=== PATIENT | male | born 1965 | race Caucasian/White ===

== ENCOUNTER → 2025-03-03 06:10 | Outpatient (REF) | payer MEDICARE, SELFPAY ==
[2025-03-03 09:20] LABS: Hematocrit 37.6 % (40-54); Hemoglobin 12.1 g/dL (13.0-16.5); Mean Corp Hgb Conc 32.2 g/dL (32-36); Mean Corpuscular Volume 91.9 fL (80-94); Mean Platelet Vol. 10.4 fl (6.2-12.0); Platelet Count 462 K/mm3 (150-450); RBC Distribution Width CV 14.4 % (11.6-14.6); RBC Distribution Width SD 48.8 fl (35.1-43.9); Red Blood Count 4.09 M/mm3 (4.6-6.2); White Blood Count 10.8 K/mm3 (4.4-11.0)
[2025-03-03 09:47] LABS: Anion Gap 11 (5-15); BUN 30 mg/dL (4-19); BUN/Creat Ratio 15.0 RATIO (10-20); Calcium,Total 9.2 mg/dL (7.6-11.0); Carbon Dioxide 20.9 mmol/L (21.0-32.0); Chloride 109 mmol/L (98-108); Cholesterol 98 mg/dL (<=200); Glucose 118 mg/dL (70-99); Low Density Lipoprotein Calc. 43 mg/dL; Potassium 4.3 mmol/L (3.3-5.1); Triglycerides 94 mg/dL; Very Low Density Lipoprotein 19 mg/dL (5-40); Vitamin D,25 Hydroxy 21.6 ng/mL (30-100); cholesterol:hdl ratio screen 2.64
== END ==
LOC: OLS.SW 06:10
PROVIDERS: Referring Provider Family Medicine; Visit Provider Family Medicine
DX: Z79.899 Other long term (current) drug therapy (principal); E11.40 Type 2 diabetes mellitus with diabetic neuropathy, unspecified
CPT/HCPCS: 36415; 80048; 80061; 82306; 83036; 84443; 85027

== ENCOUNTER → 2025-03-10 05:00 | Outpatient (REF) | payer SELFPAY ==
--- OUTSIDE RECORDS SUMMARY | 2025-03-10 03:32 | XMS RPT_ITS | CCD ---
Author Organization [facility] Care Team Providers Care Personnel Clerks Supervisor Name Role Phone Agustín Garay Attending Unavailable Results Test Name Value Interpretation Reference Range Facil ity Basic Metabolic Profile (BMP )on 03-03-2025 BUN/CRE 15.0 RATIO Normal 10-20 [facility] Comment on above: Performed By: #### L 501.9985, L500.2500, L500.4100, L100.0500, L506.1001, L501.9520 #### [facility] [address] [place], [address] Calcium [Mass/Vol] 9.2 mg/dL Normal 7.6-11.0 [facility] Comment on above: Performed By: #### L 501.9985, L500.2500, L500.4100, L100.0500, L506.1001, L501.9520 #### [facility] [address] [place], [address] Chloride [Moles/Vol] 109 mmol/L High 98-108 [facility] Comment on above: Performed By: #### L 501.9985, L500.2500, L500.4100, L100.0500, L506.1001, L501.9520 #### [facility] [address] [place], [address] CO2 [Moles/Vol] 20.9 mmol/L Low 21.0-32.0 [facility] Comment on above: Performed By: #### L 501.9985, L500.2500, L500.4100, L100.0500, L506.1001, L501.9520 #### [facility] [address] [place], [address] Creatinine [Mass/Vol] 2.00 mg/dL High 0.70-1.20 [facility] Comment on above: Performed By: #### L 501.9985, L500.2500, L500.4100, L100.0500, L506.1001, L501.9520 #### [facility] [address] [place], [address] GAP 11 Normal 5-15 [facility] Comment on above: Performed By: #### L 501.9985, L500.2500, L500.4100, L100.0500, L506.1001, L501.9520 #### [facility] [address] [place], [address] GFR/1.73 sq M.predicted among non-blacks MDRD (S/P/Bld) [Vol rate/Area] 37 mL/min/{1.73_m2} Low >60 [facility] Comment on above: Result Comment: mL/m in/1.73m2 CKD-EPI Creatinine Equation (2020) Performed By: #### L 501.9985, L500.2500, L500.4100, L100.0500, L506.1001, L501.9520 #### [facility] [address] [place], [address] Glucose [Mass/Vol] 118 mg/dL High 70-99 [facility] Comment on above: Performed By: #### L 501.9985, L500.2500, L500.4100, L100.0500, L506.1001, L501.9520 #### [facility] [address] [place], [address] Potassium [Moles/Vol] 4.3 mmol/L Normal 3.3-5.1 [facility] Comment on above: Performed By: #### L 501.9985, L500.2500, L500.4100, L100.0500, L506.1001, L501.9520 #### [facility] [address] [place], [address] Sodium [Moles/Vol] 141 mmol/L Normal 133-145 [facility] Comment on above: Performed By: #### L 501.9985, L500.2500, L500.4100, L100.0500, L506.1001, L501.9520 #### [facility] [address] [place], [address] Urea nitrogen [Mass/Vol] 30 mg/dL High 4-19 [facility] Comment on above: Performed By: #### L 501.9985, L500.2500, L500.4100, L100.0500, L506.1001, L501.9520 #### [facility] [address] [place], [address] CBC-Complete Blood Cnt No ffon 03-03-2025 Erythrocyte distribution width (RBC) [Ratio] 14.4 % Normal 11.6-14.6 [facility] Comment on above: Performed By: #### L 501.9985, L500.2500, L500.4100, L100.0500, L506.1001, L501.9520 #### [facility] [address] [place], [address] Hematocrit (Bld) [Volume fraction] 37.6 % Low 40-54 [facility] Comment on above: Performed By: #### L 501.9985, L500.2500, L500.4100, L100.0500, L506.1001, L501.9520 #### [facility] [address] [place], [address] Hemoglobin (Bld) [Mass/Vol] 12.1 g/dL Low 13.0-16.5 [facility] Comment on above: Performed By: #### L 501.9985, L500.2500, L500.4100, L100.0500, L506.1001, L501.9520 #### [facility] [address] [place], [address] MCH (RBC) [Entitic mass] 29.6 pg Normal 27.0-32.0 [facility] Comment on above: Performed By: #### L 501.9985, L500.2500, L500.4100, L100.0500, L506.1001, L501.9520 #### [facility] [address] [place], [address] MCHC (RBC) [Mass/Vol] 32.2 g/dL Normal 32-36 [facility] Comment on above: Performed By: #### L 501.9985, L500.2500, L500.4100, L100.0500, L506.1001, L501.9520 #### [facility] [address] [place], [address] MCV (RBC) [Entitic vol] 91.9 fL Normal 80-94 [facility] Comment on above: Performed By: #### L 501.9985, L500.2500, L500.4100, L100.0500, L506.1001, L501.9520 #### [facility] [address] [place], [address] Platelet mean volume (Bld) [Entitic vol] 10.4 fL Normal 6.2-12.0 [facility] Comment on above: Performed By: #### L 501.9985, L500.2500, L500.4100, L100.0500, L506.1001, L501.9520 #### [facility] [address] [place], [address] Platelets (Bld) [#/Vol] 462 10*3/uL High 150-450 [facility] Comment on above: Performed By: #### L 501.9985, L500.2500, L500.4100, L100.0500, L506.1001, L501.9520 #### [facility] [address] [place], [address] RBC (Bld) [#/Vol] 4.09 10*6/uL Low 4.6-6.2 [facility] Comment on above: Performed By: #### L 501.9985, L500.2500, L500.4100, L100.0500, L506.1001, L501.9520 #### [facility] [address] [place], [address] RDW SD 48.8 fl High 35.1-43.9 [facility] Comment on above: Performed By: #### L 501.9985, L500.2500, L500.4100, L100.0500, L506.1001, L501.9520 #### [facility] [address] [place], [address] WBC (Bld) [#/Vol] 10.8 10*3/uL Normal 4.4-11.0 [facility] Comment on above: Performed By: #### L 501.9985, L500.2500, L500.4100, L100.0500, L506.1001, L501.9520 #### [facility] [address] [place], [address] Hemoglobin A1con 03-03-2025 HbA1c (Bld) [Mass fraction] 6.7 % High <=5.6 [facility] Comment on above: Result Comment: Norm al < 5.7 % Prediabetic 5.7 - 6.4 % Diabetic >or= 6.5 % Please note range changes. Performed By: #### L 501.9985, L500.2500, L500.4100, L100.0500, L506.1001, L501.9520 #### [facility] [address] [place], [address] Lipid Profileon 03-03-2025 CHOL:HDL 2.64 Normal [facility] Comment on above: Performed By: #### L 501.9985, L500.2500, L500.4100, L100.0500, L506.1001, L501.9520 #### [facility] [address] [place], [address] Cholesterol [Mass/Vol] 98 mg/dL Normal <=200 [facility] Comment on above: Result Comment: Chol esterol level, Desirable <200 mg/dL Borderline high cholesterol 200-239 mg/dL High cholesterol >=240 mg/dL Recommendations of the NCEP Adult Treatment Panel for the following risk-cutoff thresholds for the [place] population. Performed By: #### L 501.9985, L500.2500, L500.4100, L100.0500, L506.1001, L501.9520 #### [facility] [address] [place], [address] Cholesterol in HDL [Mass/Vol] 37 mg/dL Low [facility] Comment on above: Result Comment: Debbie onal Cholesterol Education Program (NCEP) guidelines: <40 mg/dL: Low HDL-cholesterol (major risk factor for CHD) >= 60 mg/dL: High HDL-cholesterol (negative risk factor for CHD) HDL-cholesterol is affected by a number of factors, e.g. smoking, exercise, hormones, sex and age. Performed By: #### L 501.9985, L500.2500, L500.4100, L100.0500, L506.1001, L501.9520 #### [facility] [address] [place], [address] Cholesterol in LDL [Mass/Vol] 43 mg/dL Normal [facility] Comment on above: Result Comment: Bord atlasb=864-565 mg/dL Higher Qxug=259 mg/dL or greater Orozco Equation 2020 for LDL-C Performed By: #### L 501.9985, L500.2500, L500.4100, L100.0500, L506.1001, L501.9520 #### [facility] [address] [place], [address] Cholesterol in VLDL [Mass/Vol] 19 mg/dL Normal 5-40 [facility] Comment on above: Performed By: #### L 501.9985, L500.2500, L500.4100, L100.0500, L506.1001, L501.9520 #### [facility] [address] [place], [address] Triglyceride [Mass/Vol] 94 mg/dL Normal [facility] Comment on above: Result Comment: The drugs N-Acetylcysteine and Metamizole may falsely depress this assay. Normal range: <150 mg/dL Borderline High: 150-199 mg/dL High: 200-499 mg/dL Very High: >500 mg/dL Performed By: #### L 501.9985, L500.2500, L500.4100, L100.0500, L506.1001, L501.9520 #### [facility] [address] [place], [address] Thyroid Stim Hormone (TSH)on 03-03-2025 TSH 1.170 uIU/mL Normal 0.300-4.200 [facility] Comment on above: Performed By: #### L 501.9985, L500.2500, L500.4100, L100.0500, L506.1001, L501.9520 #### [facility] [address], [address] Vitamin D,25 Hydroxyon 03-03 Vitamin D 25-OH 21.6 ng/mL Low 30-100 [facility] Comment on above: Result Comment: Ann-Marie min D Status Deficiency: <20 ng/mL (50nmol/L) Insufficiency: 20-30 ng/mL (50-75 nmol/L) Sufficiency: 30-100 ng/mL (75-250 nmol/L) Toxicity: >100 ng/mL (>250 nmol/L) Performed By: #### L 501.9985, L500.2500, L500.4100, L100.0500, L506.1001, L501.9520 #### [facility] [address] [place], [address] Encounters Encounter Date Encounter Type Care Provider Facility Start: 03-03-2025 ambulatory Agustín Ivory ity:[facility] Payers Date Payer Category Payer Self-pay Summary Purpose Family History No Family History Records Found Advance Directives No Advanced Directives Records Found Additional Source Comments (unrecognized sect ion and content) No Status Records Found INFORMATION SOURCE (unrecogn ized section and content) DATE CREATED AUTHOR 03/04/2025 [facility] FOR RECORDS PERTAINING TO PATIENTS WHO ARE OR HAVE BEEN ENROLLED IN A CHEMICAL DEPENDENCY/SUBSTANCEABUSE PROGRAM, SOME INFORMATION MAY BE OMITTED. This clinical summary was aggregated from multiple sources. Caution should be exercised in using it in the provision of clinical care. This summary normalizes information from multiple sources, and as a consequence, information in this document may materially change the coding, format and clinical context of patient data. In addition, data may be omitted in some cases. CLINICAL DECISIONS SHOULD BE BASED ON THE PRIMARY CLINICAL RECORDS. [facility]. provides no warranty or guarantee of the accuracy or completeness of information in this document.
== END ==
LOC: OLS.SW 05:00
PROVIDERS: Visit Provider Family Medicine
DX: E78.5 Hyperlipidemia, unspecified (principal)
CPT/HCPCS: 36415; 80048; 80061; 82306; 84443

== ENCOUNTER → 2025-03-12 05:40 | Outpatient (REF) | payer MEDICARE, MEDICAID, SELFPAY ==
[2025-03-12 10:19] LABS: Hematocrit 40.0 % (40-54); Hemoglobin 13.1 g/dL (13.0-16.5); Mean Corp Hgb Conc 32.8 g/dL (32-36); Mean Corpuscular Volume 92.2 fL (80-94); Mean Platelet Vol. 10.4 fl (6.2-12.0); Platelet Count 479 K/mm3 (150-450); RBC Distribution Width CV 13.9 % (11.6-14.6); RBC Distribution Width SD 47.2 fl (35.1-43.9); Red Blood Count 4.34 M/mm3 (4.6-6.2); White Blood Count 11.1 K/mm3 (4.4-11.0)
[2025-03-12 10:56] LABS: Anion Gap 12 (5-15); BUN 32 mg/dL (4-19); BUN/Creat Ratio 16.2 RATIO (10-20); Calcium,Total 9.3 mg/dL (7.6-11.0); Carbon Dioxide 21.1 mmol/L (21.0-32.0); Chloride 106 mmol/L (98-108); Cholesterol 112 mg/dL (<=200); Glucose 109 mg/dL (70-99); Low Density Lipoprotein Calc. 49 mg/dL; Potassium 4.4 mmol/L (3.3-5.1); Triglycerides 131 mg/dL; Very Low Density Lipoprotein 26 mg/dL (5-40); Vitamin D,25 Hydroxy 21.9 ng/mL (30-100); cholesterol:hdl ratio screen 2.81
== END ==
LOC: OLS.SW 05:40
PROVIDERS: Visit Provider Family Medicine
DX: Z00.00 Encounter for general adult medical examination without abnormal findings (principal)
CPT/HCPCS: 36415; 80048; 80061; 82306; 84443; 85027

== ENCOUNTER → 2025-03-24 05:00 | Outpatient (REF) | payer MEDICARE, MEDICAID, SELFPAY ==
--- OUTSIDE RECORDS SUMMARY | 2025-03-24 04:20 | XMS RPT_ITS | CCD ---
Author Organization [facility] Care Team Providers Care Sports Attorney Name Role Phone CRISTOFER OSCAR ULISES Unavailable Unavaila EVER Renteria Unavailable Unavailable LUIZ BUTTS Unavailable Unavailable Ciro Schultz MD Primary Care Provider Unavailable Primary Care Provider Unavailabl e Generic Provider , No Assigned Pcp Primary Car e Provider Unavailable GISEL LUZ Attending Unavailable CIRO SCHULTZ Primary Care Unavailable JEM MAC Admitting Unavailable GENERIC PROVIDER, NO ASSIGNED PCP Primary Care Unavailable Generic Provider , No Assigned Pcp Primary Car e Provider Unavailable BOBBY TRACEY Referring Unavailable GENERIC PROVIDER, NO ASSIGNED PCP Primary Care Unavailable Generic Provider , No Assigned Pcp Primary Car e Provider Unavailable Jose Larson DO Primary Care Provider JOSE LARSON DO, V Primary Care Unavailable NELIDA VICTOR DO Attending Unavailabl e JOSE LARSON DO, V Primary Care Physician CIRO SCHULTZ Primary Care Unavailable ROGELIO COMBS Admitting Unavailable JORDYN URRUTIA Attending Unavailable RAEANN SYKES Consulting Unavailable JOSE LARSON JR Primary Care Unavail able CHRISSY HAGER Attending Unavailable KEVAN MERCHANT Attending Unavailable JOSE LARSON JR Primary Care Unavail able JOSE LARSON DO, V Primary Care Unavailable AQUILINO CASEY DO Attending Unavailable JOSE LARSON DO, V Primary Care Unavailable NAFZIGER DPM, DR NUNO [place] Attending Unav ailable JOSE LARSON DO, V Primary Care Unavailable NAFZIGER DPM, DR NUNO [place] Attending Unav ailable JOSE LARSON DO V Primary Care Unavailable NAFZIGER DPM, DR NUNO [place] Attending Unav ailable NEO DO, JOSE V Primary Care Unavailable NAFZIGER DPM, DR NUNO [place] Attending Unav ailable NEO DO, JOSE V Primary Care Unavailable NAFZIGER DPM, DR NUNO [place] Attending Unav ailable NEO DO, JOSE V Primary Care Unavailable NAFZIGER DPM, DR NUNO [place] Attending Unav ailable NEO DO, JOSE V Primary Care Unavailable RIDER DO, DR CHRISTINA Hamm Attending Unavailable Neo DO, Josejonas Baca Primary Care Provider BOBBY TRACEY Attending Unavailable BOBBY TRACEY Referring Unavailable JOSE LARSON Primary Care Unavailabl CHRISSY Bone Attending Unava ilable JOSE LARSON Primary Care Unavailabl BOBBY Cooley Attending Unavailable ALECIA MORSE Referring Unavailable GENERIC PROVIDER, NO ASSIGNED PCP Primary Care Unavailable BOBBY TRACEY Attending Unavailable BOBBY TRACEY Referring Unavailable GENERIC PROVIDER, NO ASSIGNED PCP Primary Care Unavailable KONCESAR ARVIZU Attending Unavailable GENERIC PROVIDER, NO ASSIGNED PCP Primary Care Unavailable BRENT WAKEFIELD Attending Unavailable KONHEIM, CESAR Ron Referring Unavailable GENERIC PROVIDER, NO ASSIGNED PCP Primary Care Unavailable BOBBY TRACEY Attending Unavailable BOBBY TRACEY Referring Unavailable GENERIC PROVIDER, NO ASSIGNED PCP Primary Care Unavailable BRENT WAKEFIELD Attending Unavailable KONHEIM, CESAR L Referring Unavailable NEOJOSE Primary Care Unavailabl e BRENT WAKEFIELD Attending Unavailable KONHEIM, CESAR L Referring Unavailable NEOJOSE Primary Care Unavailabl BRENT Borrego Attending Unavailable KONHEIM, CESAR L Referring Unavailable NEOJOSE Primary Care Unavailabl BRENT Borrego Attending Unavailable NEOJOSE Primary Care Unavailabl e Agustín Garay Attending Unavailable Allergies Allergy Classification Reported Allergen(s) Allergy Type Date of Onset Reaction(s) Facility (1 source) ALLERGIES NOT ON FILE; Translations: [ALLERGIES NOT ON FILE] Propensity to adverse reactions (disorder) [facility] 3 Repository Medications Current Medications Medication Drug Class(es) Dates Sig (Normalized) Sig (Original) 0.25 MG, 0.5 MG Dose 3 ML semaglutide 0.68 MG/ML Pen Injector [Ozempic] (7 sources) Start: 08-26-2024 Ozempic 2 mg/3 mL (0.25 mg or 0.5 mg dose) subcutaneous solution 0 Refill(s) Start Date: 08/26/24 Status: Ordered Medication Dispense Status: Completed Total Allowed Fills: 1 Fills Dispensed: 0 acetaminophen 325 mg oral tablet (20 sources) Start: 08-26-2024 acetaminophen 325 mg oral tablet 0 Refill(s) Start Date: 08/26/24 Status: Ordered Medication Dispense Status: Completed Total Allowed Fills: 1 Fills Dispensed: 0 take 2 tablets by mo [facility] every four hours as needed acetaminophen (Tylenol) 325 mg tablet Ta ke 2 tablets (650 mg) by mouth every 4 hours if needed. Active Comment on above: Take 650 mg by mouth every 4 hours as needed for fever (specify). atorvastatin 20 mg oral tablet (20 sources) HMG-CoA Reductase Inhibitor Start: 08-26-2024 atorvastatin 20 mg oral tablet 0 Refill(s) Start Date: 08/26/24 Status: Ordered Medication Dispense Status: Completed Total Allowed Fills: 1 Fills Dispensed: 0 Comment on above: Take 20 mg by mouth once daily. bisacodyl 10 mg rectal suppository (19 sources) Stimulant Laxative Start: 08-26-2024 bisacodyl 10 mg rectal suppository 0 Refill(s) Start Date: 08/26/24 Status: Ordered Medication Dispense Status: Completed Total Allowed Fills: 1 Fills Dispensed: 0 cholecalciferol 0.01 mg oral tablet (16 sources) Vitamin D Start: 07-05-2023 Vitamin D3 10 mcg (400 unit) tablet 07/05/2023 Active 168 hr cloNIDine 0.0125 mg/hr transdermal system (20 sources) Central alpha-2 Adrenergic Agonist Start: 08-26-2024 cloNIDine 0.3 mg/24 hr transdermal film, extended release 0 Refill(s) Start Date: 08/26/24 Status: Ordered Medication Dispense Status: Completed Total Allowed Fills: 1 Fills Dispensed: 0 take 1 tablet by evelio twice daily as needed for hypertension cloNIDine (Catapres) 0.1 mg tablet Take 1 tablet (0.1 mg) by mouth 2 times a day as needed for high blood pressure (HTN SBP GREATER THAN 150). Active cloNIDine (Catap res-TTS) 0.3 mg/[address] 1 patch on the skin 1 (one) time per week. Apply one patach on the skin and replace every 7 days, as directed, EVERY SUNDAY Active dapagliflozin 10 mg oral tablet (19 sources) Sodium-Glucose Cotransporter 2 Inhibitor Start: 03-27-2024 End: 03-27-2025 dapagliflozin propanediol (Farxiga) 10 mg Indications: Stage 3b chronic kidney disease (Multi) , Type 2 diabetes mellitus with stage 3b chronic kidney disease, with long-term current use of insulin (Multi) Take 1 tablet (10 mg) by mouth once daily. 90 tablet 3 03/27/2024 03/27/2025 Active dextromethorphan hydrobromide 2 mg/ml / guaiFENesin 20 mg/ml oral solution (1 source) Uncompetitive C-ujxvmv-Z-aspartat e Receptor Antagonist, Sigma-1 Agonist take 5 mL by mouth every four hours as needed dextromethorphan-g uaifenesin 10-100 mg/5 mL oral liquid Take 5 mL by mouth every 4 hours if needed. Active docusate sodium 100 mg oral capsule (19 sources) Start: 08-26-2024 docusate sodium 100 mg oral capsule 0 Refill(s) Start Date: 08/26/24 Status: Ordered Medication Dispense Status: Completed Total Allowed Fills: 1 Fills Dispensed: 0 famotidine 40 mg oral tablet (3 sources) Histamine-2 Receptor Antagonist Start: 02-15-2025 End: 03-01-2025 Pepcid 40 mg oral tablet Dose : 40 mg = 1 tab(s), Oral, BID, # 28 tab(s), 0 Refill(s) Start Date: 02/15/25 Stop Date: 03/01/25 Status: Ordered Medication Dispense Status: Completed Quantity: 28.0 Unit: tab(s) Total Allowed Fills: 1 Fills Dispensed: 0 finerenone (Kerendia) 10 mg tablet tablet (7 sources) Start: 07-31-2024 End: 07-31-2025 take 1 tablet by mouth once daily finerenone (Kerendia) 10 mg tablet tablet Indications: Stage 3b chronic kidney disease (Multi) Take 1 tablet (10 mg) by mouth once daily. 90 tablet 3 07/31/2024 07/31/2025 Active fluocinonide 0.0005 mg/mg topical ointment (6 sources) Corticosteroid Start: 03-06-2023 End: 03-27-2024 fluocinonide (Lidex) 0.05 % ointment Indications: Dermatitis Use on the skin daily, thin layer 60 g 3 03/06/2023 03/27/2024 Discontinued (Therapy completed) furosemide 40 mg oral tablet (20 sources) Loop Diuretic Start: 03-27-2024 End: 03-27-2025 furosemide 40 mg oral tablet 0 Refill(s) Start Date: 08/26/24 Status: Ordered Medication Dispense Status: Completed Total Allowed Fills: 1 Fills Dispensed: 0 take 2 tablets by mouth once kimmie ly furosemide (LASIX) 20 mg tablet Take 20 mg by mouth once daily. Take 2 pills qd 0 Active Comment on above: Take 20 mg by mouth once daily. Take 2 pills qd hydrALAZINE hydrochloride 10 mg oral tablet (20 sources) Arteriolar Vasodilator Start: 08-26-2024 hydrALAZINE 10 mg oral tablet 0 Refill(s) Start Date: 08/26/24 Status: Ordered Medication Dispense Status: Completed Total Allowed Fills: 1 Fills Dispensed: 0 Start: 03-14-2023 take 1 tablet by evelio th three times daily hydrALAZINE (Apresoline) 50 mg tablet Take 1 tablet (50 mg) by mouth 3 times a day. 03/14/2023 Active Comment on above: Take 1 tablet by evelio three times a day. hydrocortisone 25 mg/ml topical cream (20 sources) Corticosteroid Start: 08-26-2024 hydrocortisone 2.5% topical cream 0 Refill(s) Start Date: 08/26/24 Status: Ordered Medication Dispense Status: Completed Total Allowed Fills: 1 Fills Dispensed: 0 Start: 08-02-2023 hydrocortisone 2.5 % cream 08/02/2023 Active 3 ml insulin glargine 100 unt/ml pen injector (19 sources) Insulin Analog Start: 08-26-2024 Lantus Solosta r Pen 100 units/mL 3 mL Pen 0 Refill(s) Start Date: 08/26/24 Status: Ordered Medication Dispense Status: Completed Total Allowed Fills: 1 Fills Dispensed: 0 inject 18 [IU] by grayson bcutaneous injection once daily in the morning insulin glargine (Lantus U-100 Insulin) 100 unit/mL injection Inject 18 Units under the skin once daily in the morning. Take as directed per insulin instructions. Active 3 ml insulin lispro 100 unt/ml pen injector (20 sources) Insulin Analog Start: 08-07-2023 HumaLOG KwikPe n Insulin 100 unit/mL injection 08/07/2023 Active Start: 06-05-2022 inject 8 [IU] by sub cutaneous injection three times daily before mealtime insulin lispro (HUMALOG U-100 INSULIN) 100 unit/mL injection Inject 8 units subcutaneously 3 times daily before meals. 10 mL 1 06/05/2022 Active Comment on above: Inject 8 units subcu taneously 3 times daily before meals. ketoconazole 20 mg/ml medicated shampoo (16 sources) Azole Antifungal Start: 08-26-2024 ketoconazole 2% topical shampoo 0 Refill(s) Start Date: 08/26/24 Status: Ordered Medication Dispense Status: Completed Total Allowed Fills: 1 Fills Dispensed: 0 Start: 05-21-2024 ketoconazole ( NIZOral) 2 % shampoo Indications: Seborrheic dermatitis Wash affected areas of scalp 2-3 times weekly as directed 120 mL 11 05/21/2024 Active lisinopril 5 mg oral tablet (9 sources) Angiotensin Converting Enzyme Inhibitor Start: 07-05-2023 End: 03-27-2024 lisinopril 5 mg tablet 07/05/2023 03/27/2024 Discontinued (Therapy completed) Start: 11-21-2017 lisinopril (ZE STRIL) 10 mg tablet Take 5 mg by mouth. 0 11/21/2017 Active Start: 11-21-2017 lisinopril (ZE STRIL) 10 mg tablet Take 10 mg by mouth. 0 11/21/2017 Active Comment on above: Take 10 mg by mouth. Take 5 mg by mouth. loperamide hydrochloride 2 mg oral tablet (16 sources) Opioid Agonist Start: 10-06-2022 Anti-DiarrheaL, loperamide, 2 mg tablet 10/06/2022 Active magnesium hydroxide 240 mg/ml oral suspension (20 sources) magnesium hydrox sid (Milk of Magnesia) 2,400 mg/10 mL suspension suspension Take 30 mL by mouth. Active take 30 mL by mouth every twenty-four hours as needed for constipation magnesium hydroxide 2,400 mg/10 mL susp Take 30 mL by mouth. Q24h prn for constipation 0 Active Comment on above: Take 30 mL by mouth. Q24h prn for constipation melatonin 10 mg oral capsule (1 source) Start: melatonin 10 mg capsule 02/16/2025 Active 24 hr metoprolol succinate 200 mg extended release oral tablet (15 sources) beta-Adrenergic Janes End: take 1 tablet by mouth once daily metoprolol succinate XL (Toprol-XL) 200 mg 24 hr tablet Take 1 tablet (200 mg) by mouth once daily. Do not crush or chew. HOLD FOR HEART RATE LESS THAN 60 07/31/2024 Discontinued (Therapy completed) End: 03-27-2024 take 1 tablet by mouth twice daily metoprolol tartrate (Lopressor) 50 mg tablet Take 1 tablet by mouth twice a day. 03/27/2024 Discontinued (Therapy completed) Comment on above: Take 50 mg by mouth twice daily. 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 Apply to wound on left wrist 30 g 1 08/19/2024 09/02/2024 Active OLANZapine 7.5 mg oral tablet (1 source) Atypical Antipsychotic Start: 02-06-2025 OLANZapine (ZyPREXA) 7.5 mg tablet 02/06/2025 Active ondansetron 4 mg oral tablet (8 sources) Serotonin-3 Receptor Antagonist Start: 08-26-2024 ondansetron (Zofran) 4 mg tablet 0 Refill(s) 08/26/2024 Active polyethylene glycol 3350 64523 mg powder for oral solution (7 sources) Osmotic Laxative Start: 08-26-2024 polyethylene glycol 3350 oral powder for reconstitution 0 Refill(s) Start Date: 08/26/24 Status: Ordered Medication Dispense Status: Completed Total Allowed Fills: 1 Fills Dispensed: 0 semaglutide 0.25 mg or 0.5 mg (2 mg/3 mL) pen injector (7 sources) inject 0.5 mg by subcutaneous injection every week semaglutide 0.25 mg or 0.5 mg (2 mg/3 mL) pen injector Inject 0.5 mg under the skin once a week. Active sodium chloride 0.111 meq/ml nasal spray (1 source) sodium chloride ([employer]) 0.65 % nasal spray Administer 1 spray into affected nostril(s) every 6 hours if needed. Active sodium zirconium cyclosilicate 51750 mg powder for oral suspension (1 source) End: 03-27-2024 sodium zirconium cyclosilicate (Lokelma) 10 gram packet Take 10 g by mouth once daily. 03/27/2024 Discontinued (Med List Cleanup) traMADol hydrochloride 50 mg oral tablet (8 sources) Opioid Agonist Start: 08-26-2024 traMADol (Ultram) 50 mg tablet 0 Refill(s) 08/26/2024 Active Vitamin D3 10 mcg (400 intl units) oral tablet (7 sources) Start: 08-26-2024 Vitamin D3 10 mcg (400 intl units) oral tablet 0 Refill(s) Start Date: 08/26/24 Status: Ordered Medication Dispense Status: Completed Total Allowed Fills: 1 Fills Dispensed: 0 Completed/Discontinued Medications Medication Drug Class(es) Dates Sig (Normalized) Sig (Original) amLODIPine 10 mg oral tablet (4 sources) Dihydropyridine Calcium Channel Janes take 1 tablet by mouth once daily amLODIPine (NORVASC) 10 mg tablet Take 10 mg by mouth once daily. 0 Active Comment on above: Take 10 mg by mouth once daily. cetirizine hydrochloride 10 mg oral tablet (4 sources) Histamine-1 Receptor Antagonist take 1 tablet by mouth once daily cetirizine (ZYRTEC) 10 mg tablet Take 10 mg by mouth once daily. 0 Active Comment on above: Take 10 mg by mouth once daily. ibuprofen 600 mg oral tablet (4 sources) Nonsteroidal Anti-inflammatory Drug Start: 12-23-2017 take 1 tablet by mouth every six hours as needed ibuprofen (MOTRIN) 600 mg tablet Take 1 tablet by mouth every 6 hours as needed. 0 12/23/2017 Active Comment on above: Take 1 tablet by evelio every 6 hours as needed. insulin glargine,hum.rec.an log (LANTUS SOLOSTAR U-100 INSULIN SUBCUTANEOUS) (4 sources) inject 5 [IU] by subcutaneous injection once daily at bedtime insulin glargine,hum.rec.an log (LANTUS SOLOSTAR U-100 INSULIN SUBCUTANEOUS) Inject 5 Units subcutaneously daily at bedtime. 0 Active Comment on above: Inject 5 Units subcu taneously daily at bedtime. insulin glargine-yfgn (SEMGLEE) 100 unit/mL (3 mL) insulin pen (4 sources) Start: 06-06-2022 insulin glargine-yfgn (SEMGLEE) 100 unit/mL (3 mL) insulin pen insulin isophane, human 100 unt/ml injectable suspension (4 sources) Start: 01-21-2018 insulin NPH injection Inject 15 Units subcutaneously. 0 01/21/2018 Active Comment on above: Inject 15 Units subc utaneously. insulin, regular, human 100 unt/ml injectable solution (4 sources) Insulin Start: 01-21-2018 insulin regular human 100 unit/mL injection Take 15 units sc bid 0 01/21/2018 Active Comment on above: Take 15 units sc bid regadenoson 0.4 mg injection (LEXISCAN) (1 source) Start: 06-19-2023 End: 06-19-2023 regadenoson 0.4 mg injection (LEXISCAN) 1 ml triamcinolone acetonide 40 mg/ml injection (3 sources) Corticosteroid Start: 10-03-2023 End: 10-02-2023 triamcinolone acetonide (Kenalog-40) injection 20 mg Start: 10-03-2023 End: 10-02-2023 20 mg, intralesional, Once, On Sun10/03/23 at 1330, For 1 dose, 0.5mL of 40mg/mL was diluted with 0.5mL of normal saline, resulting in 1mL volume of 20mg/mL triamcinolone. Start: 10-02-2023 End: 10-03-2023 triamcinolone acetonide (Estrada alog) injection 20 mg divalproex sodium 125 mg delayed release oral capsule (4 sources) Mood Stabilizer, Anti-epileptic Agent take 1 capsule by mouth twice daily divalproex sprinkle (DEPAKOTE SPRINKLES) 125 mg capsule Take 125 mg by mouth twice daily. 0 Active Comment on above: Take 125 mg by mouth twice daily. Problems Active Problems Problem Classification Problem Date Documented Date Episodic/Chronic Abdominal hernia (8 sources) Inguinal hernia; Translations: [Unilateral inguinal hernia, without obstruction or gangrene, not specified as recurrent] Onset: 2024 08-26-2024 Episodic Acute cerebrovascular disease (1 source) Cerebrovascular accident; Translations: [Cerebral infarction, unspecified] 03-14-2023 Chronic Alcohol-related disorders (1 source) Alcohol use, unspecified with intoxication delirium; Translations: [Alcohol use, unspecified with intoxication delirium (HCC)] Onset: 01-07-2018 Chronic Allergic reactions (3 sources) Nummular eczema; Translations: [Nummular dermatitis] 03-06-2023 Episodic Cancer; other and unspecified primary (2 sources) Squamous cell carcinoma in situ; Translations: [Carcinoma in situ, unspecified] 08-31-2023 Chronic Chronic kidney disease (20 sources) Anemia; Translations: [Chronic kidney disease, unspecified] Onset: 12-08-2023 03-14-2023 Chronic Chronic kidney disease (8 sources) Chronic kidney disease; Translations: [Chronic kidney disease, stage 3 unspecified (Multi)] Onset: 03-31-2023 Deficiency and other anemia (2 sources) Anemia in chronic kidney disease; Translations: [Anemia in chronic kidney disease] Onset: 09-21-2023 Chronic Diabetes mellitus with complications (5 sources) Type 2 diabetes mellitus with unspecified complications; Translations: [Insulin treated type 2 diabetes mellitus] Onset: 01-07-2018 03-27-2024 Chronic Diabetes mellitus without complication (20 sources) Type 2 diabetes mellitus; Translations: [Type 2 diabetes mellitus without complications] Onset: 06-04-2022 06-04-2022 Chronic Diabetes mellitus without complication (1 source) Hyperglycemia, unspecified; Translations: [Hyperglycemia, unspecified] Onset: 01-07-2018 Episodic Disorders of lipid metabolism (20 sources) Dyslipidemia; Translations: [Hyperlipidemia, unspecified] Onset: 03-31-2023 03-14-2023 Chronic Essential hypertension (20 sources) Essential hypertension; Translations: [Essential (primary) hypertension] Onset: 03-31-2023 03-14-2023 Chronic Hypertension with complications and secondary hypertension (1 source) Hypertensive urgency; Translations: [Hypertensive urgency] Onset: 10-03-2023 Chronic Inflammatory conditions of male genital organs (1 source) Epididymitis; Translations: [Epididymitis] Onset: 01-02-2025 Episodic Mood disorders (16 sources) Mood disorder; Translations: [Unspecified mood [affective] disorder] Onset: 03-31-2023 03-31-2023 Chronic Mood disorders (1 source) Major depressive disorder, single episode, unspecified; Translations: [Major depressive disorder, single episode, unspecified] Onset: 10-04-2017 Nutritional deficiencies (16 sources) Vitamin D deficiency; Translations: [Vitamin D deficiency, unspecified] Onset: 04-06-2023 04-06-2023 Chronic Other aftercare (1 source) Wound finding; Translations: [Encounter for other specified aftercare] 09-30-2024 Episodic Other and unspecified benign neoplasm (1 source) Melanocytic nevus; Translations: [Melanocytic nevi, unspecified] 05-21-2024 Episodic Other and unspecified benign neoplasm (1 source) Hemangioma of skin; Translations: [Hemangioma of skin and subcutaneous tissue] 05-21-2024 Episodic Other bone disease and musculoskeletal deformities (7 sources) Avascular necrosis of bone 08-26-2024 Chronic Other inflammatory condition of skin (1 source) Seborrheic dermatitis; Translations: [Seborrheic dermatitis, unspecified] 05-21-2024 Episodic Other injuries and conditions due to external causes (2 sources) Foreign body in esophagus; Translations: [Food in esophagus causing other injury, initial encounter] Onset: 02-15-2025 Episodic Other injuries and conditions due to external causes (1 source) Food in esophagus causing other injury, initial encounter; Translations: [Food in esophagus causing other injury, initial encounter] Onset: 02-15-2025 Episodic Other injuries and conditions due to external causes (1 source) Unspecified foreign body in esophagus causing other injury, initial encounter; Translations: [Unspecified foreign body in esophagus causing other injury, initial encounter] Onset: 02-15-2025 Episodic Other male genital disorders (1 source) Scrotal pain; Translations: [Scrotal pain] Onset: 01-02-2025 Episodic Other nervous system disorders (1 source) Metabolic encephalopathy; Translations: [Metabolic encephalopathy] Onset: 01-07-2018 Chronic Other non-traumatic joint disorders (1 source) Pain of right wrist; Translations: [Pain in right wrist] Episodic Other nutritional; endocrine; and metabolic disorders (4 sources) Obese class II; Translations: [Obesity, unspecified] Onset: 06-03-2022 06-03-2022 Chronic Other screening for suspected conditions (not mental disorders or infectious disease) (9 sources) Patient encounter status; Translations: [Encounter for screening for cardiovascular disorders] 05-30-2023 Episodic Other skin disorders (1 source) Sebaceous cyst of skin; Translations: [Sebaceous cyst] 10-02-2023 Episodic Other skin disorders (1 source) Actinic keratosis; Translations: [Actinic keratosis] 05-21-2024 Episodic Other skin disorders (2 sources) Seborrheic keratosis; Translations: [Other seborrheic keratosis] 05-21-2024 Episodic Other skin disorders (2 sources) Skin problem; Translations: [Disorder of the skin and subcutaneous tissue, unspecified] 02-25-2025 Episodic Other skin disorders (2 sources) Epidermoid cyst; Translations: [Epidermal cyst] 02-25-2025 Episodic Other skin disorders (1 source) Inflamed seborrheic keratosis; Translations: [Inflamed seborrheic keratosis] 02-25-2025 Episodic Other skin disorders (1 source) Skin tag; Translations: [Other hypertrophic disorders of the skin] 02-25-2025 Episodic Other skin disorders (2 sources) Epidermal cyst; Translations: [Epidermal cyst] Onset: 02-25-2025 Episodic Residual codes; unclassified (1 source) Dependent edema; Translations: [Edema, unspecified] 03-14-2023 Episodic Spondylosis; intervertebral disc disorders; other back problems (7 sources) Degeneration of lumbar intervertebral disc 08-26-2024 Chronic Spondylosis; intervertebral disc disorders; other back problems (7 sources) Spinal stenosis of lumbar region 08-26-2024 Episodic Substance-related disorders (1 source) Other psychoactive substance abuse, uncomplicated; Translations: [Other psychoactive substance abuse, uncomplicated] Onset: 10-04-2017 Chronic Unclassified (1 source) Altered Mental Status / [id number]() Onset: 01-07-2018 Unclassified (1 source) Overdose, Intentional / 373() Onset: 10-04-2017 Unclassified (1 source) Unknown / UNK(Unknown) Onset: 10-04-2017 Past or Other Problems Problem Classification Problem Date Documented Da te Episodic/Chronic Alcohol-related disorders (1 source) Alcohol use, unspecified with intoxication, unspecified; Translations: [Alcohol use, unspecified with intoxication, unspecified (HCC)] Onset: 10-04-2017 Episodic Deficiency and other anemia (4 sources) Anemia; Translations: [Anemia, unspecified] Onset: 06-04-2022 06-04-2022 Episodic Fluid and electrolyte disorders (12 sources) Hyperkalemia; Translations: [Hyperkalemia] Onset: 02-09-2024 02-09-2024 Episodic Malaise and fatigue (16 sources) Asthenia; Translations: [Weakness] Onset: 03-31-2023 03-31-2023 Episodic Neoplasms of unspecified nature or uncertain behavior (5 sources) Neoplasm of uncertain behavior of skin; Translations: [Neoplasm of uncertain behavior of skin] Onset: 05-21-2024 08-31-2023 Episodic Other aftercare (2 sources) Encounter for other specified aftercare; Translations: [Encounter for other specified aftercare] Onset: 09-30-2024 Episodic Other aftercare (2 sources) USP (current) use of insulin; Translations: [USP (current) use of insulin (Multi)] Onset: 03-31-2023 Episodic Other bone disease and musculoskeletal deformities (1 source) Disorder of bone, unspecified; Translations: [Lesion of bone of thoracic spine] Onset: 2024 Episodic Other diseases of kidney and ureters (4 sources) Kidney disease; Translations: [Disorder of kidney and ureter, unspecified] Onset: 06-04-2022 06-04-2022 Episodic Other non-epithelial cancer of skin (20 sources) Malignant neoplasm of skin of upper limb; Translations: [Unspecified malignant neoplasm of skin of unspecified upper limb, including shoulder] Onset: 04-06-2023 04-06-2023 Episodic Other skin disorders (16 sources) Skin lesion; Translations: [Disorder of the skin and subcutaneous tissue, unspecified] Onset: 05-12-2023 Resolved: 09-10-2023 09-10-2023 Episodic Other skin disorders (1 source) Scar conditions and fibrosis of skin; Translations: [Scar conditions and fibrosis of skin] 10-24-2023 Episodic Skin and subcutaneous tissue infections (18 sources) Cellulitis; Translations: [Cellulitis, unspecified] Onset: 06-01-2022 06-01-2022 Episodic Results Test Name Value Interpretation Reference Range Facility Basic Metabolic Profile (BMP )on 03-03-2025 BUN/CRE 15.0 RATIO Normal 10-20 [facility] Comment on above: Performed By: #### L 501.9985, L500.2500, L500.4100, L100.0500, L506.1001, L501.9520 #### [facility] [address] [place], [address] Calcium [Mass/Vol] 9.2 mg/dL Normal 7.6-11.0 [facility] Comment on above: Performed By: #### L 501.9985, L500.2500, L500.4100, L100.0500, L506.1001, L501.9520 #### [facility] [address] [place], [address] Chloride [Moles/Vol] 109 mmol/L High 98-108 [facility] Comment on above: Performed By: #### L 501.9985, L500.2500, L500.4100, L100.0500, L506.1001, L501.9520 #### [facility] [address] [place], [address] CO2 [Moles/Vol] 20.9 mmol/L Low 21.0-32.0 [facility] Comment on above: Performed By: #### L 501.9985, L500.2500, L500.4100, L100.0500, L506.1001, L501.9520 #### [facility] [address] [place], [address] Creatinine [Mass/Vol] 2.00 mg/dL High 0.70-1.20 [facility] Comment on above: Performed By: #### L 501.9985, L500.2500, L500.4100, L100.0500, L506.1001, L501.9520 #### [facility] [address] [place], [address] GAP 11 Normal 5-15 [facility] Comment on above: Performed By: #### L 501.9985, L500.2500, L500.4100, L100.0500, L506.1001, L501.9520 #### [facility] [address] [place], [address] GFR/1.73 sq M.predicted among non-blacks MDRD (S/P/Bld) [Vol rate/Area] 37 mL/min/{1.73_m2} Low >60 [facility] Comment on above: Result Comment: mL/m in/1.73m2 CKD-EPI Creatinine Equation (2020) Performed By: #### L 501.9985, L500.2500, L500.4100, L100.0500, L506.1001, L501.9520 #### [facility] [address] [place], [address] Glucose [Mass/Vol] 118 mg/dL High 70-99 [facility] Comment on above: Performed By: #### L 501.9985, L500.2500, L500.4100, L100.0500, L506.1001, L501.9520 #### [facility] [address] [place], [address] Potassium [Moles/Vol] 4.3 mmol/L Normal 3.3-5.1 [facility] Comment on above: Performed By: #### L 501.9985, L500.2500, L500.4100, L100.0500, L506.1001, L501.9520 #### [facility] [address] [place], [address] Sodium [Moles/Vol] 141 mmol/L Normal 133-145 [facility] Comment on above: Performed By: #### L 501.9985, L500.2500, L500.4100, L100.0500, L506.1001, L501.9520 #### [facility] [address] [place], [address] Urea nitrogen [Mass/Vol] 30 mg/dL High 4-19 [facility] Comment on above: Performed By: #### L 501.9985, L500.2500, L500.4100, L100.0500, L506.1001, L501.9520 #### [facility] [address] [place], [address] CBC-Complete Blood Cnt No Di ffon 03-03-2025 Erythrocyte distribution width (RBC) [Ratio] 14.4 % Normal 11.6-14.6 [facility] Comment on above: Performed By: #### L 501.9985, L500.2500, L500.4100, L100.0500, L506.1001, L501.9520 #### [facility] [address] [place], [address] Hematocrit (Bld) [Volume fraction] 37.6 % Low 40-54 [facility] Comment on above: Performed By: #### L 501.9985, L500.2500, L500.4100, L100.0500, L506.1001, L501.9520 #### [facility] [address] [place], [address] Hemoglobin (Bld) [Mass/Vol] 12.1 g/dL Low 13.0-16.5 [facility] Comment on above: Performed By: #### L 501.9985, L500.2500, L500.4100, L100.0500, L506.1001, L501.9520 #### [facility] [address] [place], [address] MCH (RBC) [Entitic mass] 29.6 pg Normal 27.0-32.0 [facility] Comment on above: Performed By: #### L 501.9985, L500.2500, L500.4100, L100.0500, L506.1001, L501.9520 #### [facility] [address] [place], [address] MCHC (RBC) [Mass/Vol] 32.2 g/dL Normal 32-36 [facility] Comment on above: Performed By: #### L 501.9985, L500.2500, L500.4100, L100.0500, L506.1001, L501.9520 #### [facility] [address] [place], [address] MCV (RBC) [Entitic vol] 91.9 fL Normal 80-94 [facility] Comment on above: Performed By: #### L 501.9985, L500.2500, L500.4100, L100.0500, L506.1001, L501.9520 #### [facility] [address] [place], [address] Platelet mean volume (Bld) [Entitic vol] 10.4 fL Normal 6.2-12.0 [facility] Comment on above: Performed By: #### L 501.9985, L500.2500, L500.4100, L100.0500, L506.1001, L501.9520 #### [facility] [address] [place], [address] Platelets (Bld) [#/Vol] 462 10*3/uL High 150-450 [facility] Comment on above: Performed By: #### L 501.9985, L500.2500, L500.4100, L100.0500, L506.1001, L501.9520 #### [facility] [address] [place], [address] RBC (Bld) [#/Vol] 4.09 10*6/uL Low 4.6-6.2 [facility] Comment on above: Performed By: #### L 501.9985, L500.2500, L500.4100, L100.0500, L506.1001, L501.9520 #### [facility] [address] [place], [address] RDW SD 48.8 fl High 35.1-43.9 [facility] Comment on above: Performed By: #### L 501.9985, L500.2500, L500.4100, L100.0500, L506.1001, L501.9520 #### [facility] [address] [place], [address] WBC (Bld) [#/Vol] 10.8 10*3/uL Normal 4.4-11.0 [facility] Comment on above: Performed By: #### L 501.9985, L500.2500, L500.4100, L100.0500, L506.1001, L501.9520 #### [facility] [address] [place], [address] Hemoglobin A1con 03-03-2025 HbA1c (Bld) [Mass fraction] 6.7 % High <=5.6 [facility] Comment on above: Result Comment: Norm al < 5.7 % Prediabetic 5.7 - 6.4 % Diabetic >or= 6.5 % Please note range changes. Performed By: #### L 501.9985, L500.2500, L500.4100, L100.0500, L506.1001, L501.9520 #### [facility] [address] [place], [address] Lipid Profileon 03-03-2025 CHOL:HDL 2.64 Normal [facility] Comment on above: Performed By: #### L 501.9985, L500.2500, L500.4100, L100.0500, L506.1001, L501.9520 #### [facility] [address] [place], [address] Cholesterol [Mass/Vol] 98 mg/dL Normal <=200 [facility] Comment on above: Result Comment: Chol esterol level, Desirable <200 mg/dL Borderline high cholesterol 200-239 mg/dL High cholesterol >=240 mg/dL Recommendations of the NCEP Adult Treatment Panel for the following risk-cutoff thresholds for the [place] population. Performed By: #### L 501.9985, L500.2500, L500.4100, L100.0500, L506.1001, L501.9520 #### [facility] [address], [address] Cholesterol in HDL [Mass/Vol] 37 mg/dL Low [facility] Comment on above: Result Comment: Debbie onal Cholesterol Education Program (NCEP) guidelines: <40 mg/dL: Low HDL-cholesterol (major risk factor for CHD) >= 60 mg/dL: High HDL-cholesterol (negative risk factor for CHD) HDL-cholesterol is affected by a number of factors, e.g. smoking, exercise, hormones, sex and age. Performed By: #### L 501.9985, L500.2500, L500.4100, L100.0500, L506.1001, L501.9520 #### [facility] [address] [place], [address] Cholesterol in LDL [Mass/Vol] 43 mg/dL Normal [facility] Comment on above: Result Comment: Bord ofhrci=123-922 mg/dL Higher Wnso=499 mg/dL or greater Orozco Equation 2020 for LDL-C Performed By: #### L 501.9985, L500.2500, L500.4100, L100.0500, L506.1001, L501.9520 #### [facility] [address] [place], [address] Cholesterol in VLDL [Mass/Vol] 19 mg/dL Normal 5-40 [facility] Comment on above: Performed By: #### L 501.9985, L500.2500, L500.4100, L100.0500, L506.1001, L501.9520 #### [facility] [address] [place], [address] Triglyceride [Mass/Vol] 94 mg/dL Normal [facility] Comment on above: Result Comment: The drugs N-Acetylcysteine and Metamizole may falsely depress this assay. Normal range: <150 mg/dL Borderline High: 150-199 mg/dL High: 200-499 mg/dL Very High: >500 mg/dL Performed By: #### L 501.9985, L500.2500, L500.4100, L100.0500, L506.1001, L501.9520 #### [facility] [address] [place], [address] Thyroid Stim Hormone (TSH)on 03-03-2025 TSH 1.170 uIU/mL Normal 0.300-4.200 [facility] Comment on above: Performed By: #### L 501.9985, L500.2500, L500.4100, L100.0500, L506.1001, L501.9520 #### [facility] [address] [place], [address] Vitamin D,25 Hydroxyon 03-03 Vitamin D 25-OH 21.6 ng/mL Low 30-100 [facility] Comment on above: Result Comment: Ann-Marie min D Status Deficiency: <20 ng/mL (50nmol/L) Insufficiency: 20-30 ng/mL (50-75 nmol/L) Sufficiency: 30-100 ng/mL (75-250 nmol/L) Toxicity: >100 ng/mL (>250 nmol/L) Performed By: #### L 501.9985, L500.2500, L500.4100, L100.0500, L506.1001, L501.9520 #### [facility] [address] [place], [address] Destr of lesionon 02-25-2025 Complexity: simple Destruction method: cryotherapy Informed consent: discussed and consent obtained Lesion destroyed using liquid nitrogen: Yes Outcome: patient tolerated procedure well with no complications [facility] Work Phone: [facility] Work Phone: .Auto Diffon 02-15-2025 Basophil, Absolute 0.1 10 3/mcL Normal 0.0-0.3 [facility] Comment on above: Performed By: #### B MP, CBC, MDW, ADIFF, GFR, ANEU #### [address] [address] Basophils/100 WBC (Bld) 0.7 % Normal 0.0-2.5 [facility] Comment on above: Performed By: #### B MP, CBC, MDW, ADIFF, GFR, ANEU #### [address] [address] Eosinophil, Absolute 1.4 10 3/mcL High 0.0-0.7 [facility] Comment on above: Performed By: #### B MP, CBC, MDW, ADIFF, GFR, ANEU #### [address] [address] Eosinophils/100 WBC (Bld) 10.6 % High 0.0-6.0 [facility] Comment on above: Performed By: #### B MP, CBC, MDW, ADIFF, GFR, ANEU #### [address] [address] Lymphocyte, Absolute 2.2 10 3/mcL Normal 0.9-4.3 [facility] Comment on above: Performed By: #### B MP, CBC, MDW, ADIFF, GFR, ANEU #### [address] [address] Lymphocytes/100 WBC (Bld) 16.3 % Low 20.0-40.0 [facility] Comment on above: Performed By: #### B MP, CBC, MDW, ADIFF, GFR, ANEU #### [address] [address] Monocyte, Absolute 0.7 10 3/mcL Normal 0.1-1.4 [facility] Comment on above: Performed By: #### B MP, CBC, MDW, ADIFF, GFR, ANEU #### [address] [address] Monocytes/100 WBC (Bld) 5.4 % Normal 2.0-13.0 [facility] Comment on above: Performed By: #### B MP, CBC, MDW, ADIFF, GFR, ANEU #### [address] [address] Neutrophils/100 WBC (Bld) 67.0 % Normal 50.0-75.0 [facility] Comment on above: Performed By: #### B MP, CBC, MDW, ADIFF, GFR, ANEU #### [address] [address] .GFRon 02-15-2025 Estimated Glomerular Filtration Rate 36 ml/min/1.73sqm Normal [facility] Comment on above: Result Comment: Stages of Chronic Kidney Disease (CKD) Stage Description eGFR(ml/min/1.73 sq.m.) CKD 1 Normal kidney function or >=90 normal kindney function with possible kidney damage (ex. Proteinuria) CKD 2 Kidney damage with mild loss 60-89 of kidney function CKD 3a Mild to moderate loss of kidney 45-59 function CKD 3b Moderate to severe loss of 30-44 of kindey function CKD 4 Severe loss of kidney function 15-29 CKD 5 Kidney failure <15 Note: (go live 2024) the eGFR calculation was updated to the 2020 CKD-EPI creatinine equation without a race factor to calculate the eGFR results. Performed By: #### B MP, CBC, MDW, ADIFF, GFR, ANEU #### [address] [place], [place] [address] .MDWon 02-15-2025 Monocyte Distribution Width 14.67 Normal 0.00-20.00 [facility] Comment on above: Result Comment: For ED adult patients suspected of sepsis, MDW<=20.0 does not rule out sepsis or risk of sepsis Performed By: #### B MP, CBC, MDW, ADIFF, GFR, ANEU #### [address] [address] .NEUABSon 02-15-2025 Neutrophil, Absolute 9.1 10 3/mcL High 2.3-8.1 [facility] Comment on above: Performed By: #### B MP, CBC, MDW, ADIFF, GFR, ANEU #### [address] [address] BMPon 02-15-2025 BUN/Creatinine Ratio 16 ratio Normal 7-27 [facility] Comment on above: Performed By: #### B MP, CBC, MDW, ADIFF, GFR, ANEU #### [address] [address] Calcium [Mass/Vol] 9.2 mg/dL Normal 8.4-10.2 [facility] Comment on above: Performed By: #### B MP, CBC, MDW, ADIFF, GFR, ANEU #### [address] [address] Chloride [Moles/Vol] 104 mmol/L Normal 98-107 [facility] Comment on above: Performed By: #### B MP, CBC, MDW, ADIFF, GFR, ANEU #### [place] [id number] CO2 [Moles/Vol] 24 mmol/L Normal 23-31 [facility] Comment on above: Performed By: #### B MP, CBC, MDW, ADIFF, GFR, ANEU #### [address] [address] Creatinine [Mass/Vol] 2.08 mg/dL High 0.67-1.17 [facility] Comment on above: Performed By: #### B MP, CBC, MDW, ADIFF, GFR, ANEU #### [place] [address] Electrolyte Balance 12.0 mEq/L Normal 4.0-15.0 [facility] Comment on above: Performed By: #### B MP, CBC, MDW, ADIFF, GFR, ANEU #### [address] [address] Glucose [Mass/Vol] 174 mg/dL High 80-115 [facility] Comment on above: Performed By: #### B MP, CBC, MDW, ADIFF, GFR, ANEU #### [address] [address] Potassium [Moles/Vol] 3.8 mmol/L Normal 3.5-5.1 [facility] Comment on above: Performed By: #### B MP, CBC, MDW, ADIFF, GFR, ANEU #### [address] [address] Sodium [Moles/Vol] 140 mmol/L Normal 136-145 [facility] Comment on above: Performed By: #### B MP, CBC, MDW, ADIFF, GFR, ANEU #### [address] [address] Urea nitrogen [Mass/Vol] 34 mg/dL High 7-18 [facility] Comment on above: Performed By: #### B MP, CBC, MDW, ADIFF, GFR, ANEU #### [address] [address] CBCon 02-15-2025 Erythrocyte distribution width (RBC) [Ratio] 15.6 % High 11.5-15.5 [facility] Comment on above: Performed By: #### B MP, CBC, MDW, ADIFF, GFR, ANEU #### [address] [address] Hematocrit (Bld) [Volume fraction] 42.5 % Normal 40.0-52.0 [facility] Comment on above: Performed By: #### B MP, CBC, MDW, ADIFF, GFR, ANEU #### [address] [address] Hgb 14.2 G/dL Normal 13.0-17.5 [facility] Comment on above: Performed By: #### B MP, CBC, MDW, ADIFF, GFR, ANEU #### [address] [address] MCH (RBC) [Entitic mass] 30.6 pg Normal 27.0-33.0 [facility] Comment on above: Performed By: #### B MP, CBC, MDW, ADIFF, GFR, ANEU #### [address] [address] MCHC 33.4 G/dL Normal 32.0-36.0 [facility] Comment on above: Performed By: #### B MP, CBC, MDW, ADIFF, GFR, ANEU #### [address] [address] MCV (RBC) [Entitic vol] 91.4 fL Normal 81.0-100.0 [facility] Comment on above: Performed By: #### B MP, CBC, MDW, ADIFF, GFR, ANEU #### [address] [address] Platelet 513 10 3/mcL High 150-450 [facility] Comment on above: Performed By: #### B MP, CBC, MDW, ADIFF, GFR, ANEU #### [address] [address] Platelet mean volume (Bld) [Entitic vol] 8.3 fL Normal 6.4-10.5 [facility] Comment on above: Performed By: #### B MP, CBC, MDW, ADIFF, GFR, ANEU #### [address] [address] RBC 4.65 10 6/mcL Normal 4.50-6.00 [facility] Comment on above: Performed By: #### B MP, CBC, MDW, ADIFF, GFR, ANEU #### [address] [address] WBC 13.6 10 3/mcL High 4.5-10.8 [facility] Comment on above: Performed By: #### B MP, CBC, MDW, ADIFF, GFR, ANEU #### [place] [address] [address] LABORATORYOrdered By: SYSTEM SYSTEM on 02-15-2025 Basophils (Bld) [#/Vol] 0.1 103/mcL Normal 0.0 - 0.3 10^3/mcL AO Workflow SS Basophils/100 WBC (Bld) 0.7 % Normal 0.0 - 2.5 % AO Workflow SS Calcium [Mass/Vol] 9.2 mg/dL Normal 8.4 - 10. 2 mg/dL AO ADM SS Chloride [Moles/Vol] 104 mmol/L Normal 98 - 10 7 mmol/L AO ADM SS CO2 [Moles/Vol] 24 mmol/L Normal 23 - 31 mmol/L AO ADM SS Creatinine [Mass/Vol] 2.08 mg/dL High 0.67 - 1.17 mg/dL AO ADM SS Electrolyte Balance 12.0 mEq/L Normal 4.0 - 15 .0 mEq/L AO ADM SS Eosinophil, Absolute 1.4 103/mcL High 0.0 - 0 .7 10^3/mcL AO Workflow SS Eosinophils/100 WBC (Bld) 10.6 % High 0.0 - 6.0 % AO Workflow SS Erythrocyte distribution width (RBC) [Ratio] 15.6 % High 11.5 - 15.5 % AO Workflow SS GLOMERULAR FILTRATION RATE/1.73 SQ M.PREDICTED:ARVRAT:P T:SER/PLAS/BLD:QN:CR EATININE-BASED FORMULA (CKD-EPI 2020) 36 ml/min/1.73sqm Invalid Interpretation Code AO Chemistry S Comment on above: Interpretive Data: Stages of Chronic Kidney Disease (CKD) Stage Description eGFR(ml/min/1.73 sq.m.) CKD 1 Normal kidney function or >=90 normal kindney function with possible kidney damage (ex. Proteinuria) CKD 2 Kidney damage with mild loss 60-89 of kidney function CKD 3a Mild to moderate loss of kidney 45-59 function CKD 3b Moderate to severe loss of 30-44 of kindey function CKD 4 Severe loss of kidney function 15-29 CKD 5 Kidney failure <15 Note: (go live 2024) the eGFR calculation was updated to the 2020 CKD-EPI creatinine equation without a race factor to calculate the eGFR results. Glucose [Mass/Vol] 174 mg/dL High 80 - 115 mg/dL AO ADM SS Hematocrit (Bld) [Volume fraction] 42.5 % Normal 40.0 - 52.0 % AO Workflow SS Hemoglobin (Bld) [Mass/Vol] 14.2 G/dL Normal 13.0 - 17.5 G/dL AO Workflow SS Lymphocytes (Bld) [#/Vol] 2.2 103/mcL Normal 0.9 - 4.3 10^3/mcL AO Workflow SS Lymphocytes/100 WBC (Bld) 16.3 % Low 20.0 - 40.0 % AO Workflow SS MCH (RBC) [Entitic mass] 30.6 pg Normal 27.0 - 33.0 pg AO Workflow SS MCHC 33.4 G/dL Normal 32.0 - 36.0 G/dL AO Workflow SS MCV (RBC) [Entitic vol] 91.4 fL Normal 81.0 - 100.0 fL AO Workflow SS Monocyte distribution width Auto (Bld) [Entitic vol] 14.67 1 Normal 0.00 - 20.00 AO Workflow SS Comment on above: Result Comment: For ED adult patients suspected of sepsis, MDW<=20.0 does not rule out sepsis or risk of sepsis Monocytes (Bld) [#/Vol] 0.7 103/mcL Normal 0.1 - 1.4 10^3/mcL AO Workflow SS Monocytes/100 WBC (Bld) 5.4 % Normal 2.0 - 13.0 % AO Workflow SS Neutrophils (Bld) [#/Vol] 9.1 103/mcL High 2.3 - 8.1 10^3/mcL AO Workflow SS Neutrophils/100 WBC (Bld) 67.0 % Normal 50.0 - 75.0 % AO Workflow SS Platelet mean volume (Bld) [Entitic vol] 8.3 fL Normal 6.4 - 10.5 fL AO Workflow SS Platelets (Bld) [#/Vol] 513 103/mcL High 150 - 450 10^3/mcL AO Workflow SS Potassium [Moles/Vol] 3.8 mmol/L Normal 3.5 - 5.1 mmol/L AO ADM SS RBC (Bld) [#/Vol] 4.65 106/mcL Normal 4.50 - 6.0 0 10^6/mcL AO Workflow SS Sodium [Moles/Vol] 140 mmol/L Normal 136 - 145 mmol/L AO ADM SS Urea nitrogen [Mass/Vol] 34 mg/dL High 7 - 18 mg/dL AO ADM SS Urea nitrogen/Creatinine [Mass ratio] 16 ratio Normal 7 - 27 ratio AO ADM SS WBC (Bld) [#/Vol] 13.6 103/mcL High 4.5 - 10.8 10^3/mcL AO Workflow SS XR CHEST 1 VIEWon 02-15-2025 XR CHEST 1 VIEW ORIGINAL EXAMINATION: ONE XRAY VIEW OF THE CHEST02/15/2025 6:57 pm COMPARISON: None HISTORY: ORDERING SYSTEM PROVIDED HISTORY: Reason for Exam: choking episode FINDINGS: The cardiomediastinal contours are normal.Low lung volumes with hypoventilatory changes. No large pleural effusion. No pneumothorax. No focal consolidation seen. There are no acute abnormalities to osseous structures. IMPRESSION: Low lung volumes with hypoventilatory changes. I have personally reviewed the images of this examination and agree with the resident's findings and interpretation. Interpreted by: Avni Stevneson Preliminary Report By: Miguel Toledo Electronically signed By Avni Stevenson Dictated Date: 02/15/2025 7:46:40 PM Prelim Date: 02/15/2025 7:47:13 PM Sign Date: 02/15/2025 7:56:38 PM Ordering Provider: AQUILINO CASEY RP Normal [facility] 02-06-2025 OV Office Visit (URCANT ) CIRO HAWKINS ([id number]) 1965 M Date Time Provider Department 02/06/25 1:00 PM KEVAN MERCHANT During your visit today, we recorded the following information about you: Kevan Merchant MD 02/06/2025 1:38 PM Signed [facility] NEW PATIENT CONSULT/HISTORY AND PHYSICAL PATIENT: Ciro Hawkins (59 year old) REFERRING PROVIDER: PCP: Jose Larson Jr, DO DATE OF SERVICE: 02/06/2025 Consultation requested by for an opinion regarding Ciro Hawkins. The patient is a 59-year-old male presenting for evaluation of right scrotal pain and swelling. SUMMARY: Scrotal pain, right DM Treated for epididymitis in ER Patient has large right inguinal hernia on exam. Reducible. He is having intermittent pain Recommend general surgery evaluation 1. Scrotal pain (N50.82) 2. Right inguinal hernia (K40.90) Persistent scrotal pain for approximately 4.5 months, initially treated as epididymitis with levofloxacin without significant improvement. Two prior scrotal ultrasounds, including one on 01/02/2025, showed normal testicles, normal flow, and no masses or lesions. On exam, a large right-sided inguinal hernia was identified, which was also present but smaller on a prior CT scan earlier this year; hernia has since enlarged. - Educated patient that the hernia is the likely source of his symptoms and that surgical repair is indicated. - Referred to general surgery for evaluation and management; patient requested a female surgeon. - No follow-up scheduled with this office. FOLLOW UP: Return if symptoms worsen or fail to improve. ORDERS: Orders Placed This Encounter CONSULT TO GENERAL SURGERY Standing Status: Future Referred to Provider:Jl Hendrix MD Number of Visits Requested:1 HISTORY OF PRESENT ILLNESS: The patient is a 59-year-old male with a history of CVA presenting for evaluation of scrotal pain. The patient reports scrotal pain persisting for approximately 4.5 months. He was evaluated in the ED last month and treated for suspected epididymitis with levofloxacin. He is uncertain whether the antibiotic provided any relief and reports that his symptoms have remained unchanged since onset. He denies any history of heavy lifting. He reports two prior ultrasounds, both of which were negative. He also reports a prior CT scan earlier this year, but did not follow up for the results. I personally reviewed the past medical records received from the referring provider (if present). REVIEW OF SYSTEMS: Genitourinary: (+) scrotal pain, (+) scrotal swelling Neurological: (+) balance instability All other systems negative unless described above. ALLERGIES: ALLERGIES No Known Allergies MEDICATIONS: finerenone (KERENDIA) 10 mg tablet Take 10 mg by mouth once daily. cloNIDine TTS (CATAPRES-TTS) 0.3 mg/24 hr Apply 1 Patch as directed one time a week. Change on Tuesdays cloNIDine HCl (CATAPRES) 0.1 mg tablet Take 0.1 mg by mouth every 12 hours as needed (SBP >150). docusate sodium (COLACE) 100 mg capsule Take 100 mg by mouth two times a day. bisacodyl (DULCOLAX) 10 mg supp 10 mg by RECTAL route once daily as needed for constipation. dapagliflozin propanediol (FARXIGA) 10 mg tablet Take 10 mg by mouth daily with breakfast. aluminum-magnesium hydroxide-simethicone (MAALOX ADVANCED) 200-200-20 mg/5 mL suspension Take 15 mL by mouth every 4 hours as needed (indigestion). glucagon (GLUCAGEN) 1 mg/mL injection Inject 1 mg intramuscularly as needed (hypoglycemia). hydrALAZINE (APRESOLINE) 10 mg tablet Take 10 mg by mouth three times a day. loperamide HCl (IMODIUM) 2 mg tab Take 2 mg by mouth as needed (loose stool). ketoconazole (NIZORAL) 2 % shampoo Apply 1 Application to affected area once daily. APPLY TO SCALP AND EARS semaglutide (OZEMPIC) 0.25 mg or 0.5 mg (2 mg/3 mL) pen Inject 0.5 mg subcutaneously one time a week. Take on guaiFENesin-dextromethorpha n (ROBITUSSIN DM) 100-10 mg/5 mL syrup Take 5 mL by mouth every 4 hours as needed for cough. sodium chloride 0.65 % nasal spray Use 1 [place] in the nose every 6 hours as needed for cold/allergy symptoms. traMADol (ULTRAM) 50 mg tablet Take 50 mg by mouth every 8 hours as needed for pain. cholecalciferol (VITAMIN D) 1,000 unit tab tablet Take 1,000 Units by mouth once daily. ondansetron (ZOFRAN) 4 mg tablet Take 4 mg by mouth every 6 hours as needed for nausea/vo (more content not included)... Normal [facility] 01-20-2025 [facility] Letter [address] Normal [facility] 01-13-2025 [facility] Letter [address] [facility] 01-06-2025 [facility] Letter Text Normal [facility] C. trachomatis+N. gonorrhoea e DNA JEFFREY+probe Ql (Unsp spec)on 01-02-2025 C. trachomatis rRNA JEFFREY+probe Ql (Unsp spec) Not detected Normal Not detected [facility] Comment on above: Order Comment: Speci men Type: BLOOD SPECIMEN Ordering Facility: [facility] Address: [address] [place] [address] Performed By: #### S LACT #### [facility] CLIA [id number] [address] N. gonorrhoeae rRNA JEFFREY+probe Ql (Unsp spec) Not detected Normal Not detected [facility] Comment on above: Order Comment: Speci men Type: BLOOD SPECIMEN Ordering Facility: [facility] Address: [address] [place] [address] Performed By: #### S LACT #### [facility] CLIA [id number] [address] [place] [address] STATES [place] [facility] CBC W Auto Differential pane l (Bld)on 01-02-2025 Basophils (Bld) [#/Vol] 0.09 10*3/uL Normal <0.11 [facility] Comment on above: Order Comment: Speci men Type: BLOOD SPECIMEN Ordering Facility: [facility] Address: [address] [place] [address] Performed By: #### 5 7021-8 #### [facility] CLIA [id number] [address] [place] [address] [place] Basophils/100 WBC (Bld) 0.7 % Normal [facility] Comment on above: Order Comment: Speci men Type: BLOOD SPECIMEN Ordering Facility: [facility] Address: [address] [place] [address] Performed By: #### 5 7021-8 #### [facility] CLIA [id number] [address] [place] [address] STATES OF [facility] Differential cell count method Nom (Bld) Auto Normal [facility] Comment on above: Order Comment: Speci men Type: BLOOD SPECIMEN Ordering Facility: [facility] Address: [address] [place] [address] Performed By: #### 5 7021-8 #### [facility] CLIA [id number] [address] [place] [address] [place] Eosinophils (Bld) [#/Vol] 0.42 10*3/uL Normal <0.46 [facility] Comment on above: Order Comment: Speci men Type: BLOOD SPECIMEN Ordering Facility: [facility] Address: [address] [place] [address] Performed By: #### 5 7021-8 #### [facility] CLIA [id number] [address] [place] [address] [place] Eosinophils/100 WBC (Bld) 3.3 % Normal [facility] Comment on above: Order Comment: Speci men Type: BLOOD SPECIMEN Ordering Facility: [facility] Address: [address] [place] [address] Performed By: #### 5 7021-8 #### [facility] CLIA [id number] [address] [place] [address] [place] Erythrocyte distribution width (RBC) [Ratio] 16.4 % High 11.5-15.0 [facility] Comment on above: Order Comment: Speci men Type: BLOOD SPECIMEN Ordering Facility: [facility] Address: [address] [place] [address] Performed By: #### 5 7021-8 #### [facility] CLIA [id number] [address] [place] [address] [place] Hematocrit (Bld) [Volume fraction] 41.7 % Normal 39.0-51.0 [facility] Comment on above: Order Comment: Speci men Type: BLOOD SPECIMEN Ordering Facility: [facility] Address: [address] [place] [address] Performed By: #### 5 7021-8 #### [facility] CLIA [id number] [address] [place] [address] [place] Hemoglobin (Bld) [Mass/Vol] 13.7 g/dL Normal 13.0-17.0 [facility] Comment on above: Order Comment: Speci men Type: BLOOD SPECIMEN Ordering Facility: [facility] Address: [address] [place] [address] Performed By: #### 5 7021-8 #### [facility] CLIA [id number] [address] [place] [address] [place] Immature granulocytes (Bld) [#/Vol] 0.05 10*3/uL Normal <0.10 [facility] Comment on above: Order Comment: Speci men Type: BLOOD SPECIMEN Ordering Facility: [facility] Address: [address] [place] [address] Performed By: #### 5 7021-8 #### [facility] CLIA [id number] [address] [place] [address] [place] Immature granulocytes/100 WBC (Bld) 0.4 % Normal [facility] Comment on above: Order Comment: Speci men Type: BLOOD SPECIMEN Ordering Facility: [facility] Address: [address] [place] [address] Performed By: #### 5 7021-8 #### [facility] CLIA [id number] [address] [place] [address] [place] Lymphocytes (Bld) [#/Vol] 2.15 10*3/uL Normal 1.00-4.00 [facility] Comment on above: Order Comment: Speci men Type: BLOOD SPECIMEN Ordering Facility: [facility] Address: [address] [place] [address] Performed By: #### 5 7021-8 #### [facility] CLIA [id number] [address] [place] [address] [place] Lymphocytes/100 WBC (Bld) 17.1 % Normal [facility] Comment on above: Order Comment: Speci men Type: BLOOD SPECIMEN Ordering Facility: [facility] Address: [address] [place] [address] Performed By: #### 5 7021-8 #### [facility] CLIA [id number] [address] [place] [address] [place] MCH (RBC) [Entitic mass] 30.2 pg Normal 26.0-34.0 [facility] Comment on above: Order Comment: Speci men Type: BLOOD SPECIMEN Ordering Facility: [facility] Address: [address] [place] [address] Performed By: #### 5 7021-8 #### [facility] CLIA [id number] [address] [place] [address] [place] MCHC (RBC) [Mass/Vol] 32.9 g/dL Normal 30.5-36.0 [facility] Comment on above: Order Comment: Speci men Type: BLOOD SPECIMEN Ordering Facility: [facility] Address: [address] [place] [address] Performed By: #### 5 7021-8 #### [facility] CLIA [id number] [address] [place] [address] [place] MCV (RBC) [Entitic vol] 91.9 fL Normal 80.0-100.0 [facility] Comment on above: Order Comment: Speci men Type: BLOOD SPECIMEN Ordering Facility: [facility] Address: [address] [place] [address] Performed By: #### 5 7021-8 #### [facility] CLIA [id number] [address] [place] [address] [place] Monocytes (Bld) [#/Vol] 0.95 10*3/uL High <0.87 [facility] Comment on above: Order Comment: Speci men Type: BLOOD SPECIMEN Ordering Facility: [facility] Address: [address] [place] [address] Performed By: #### 5 7021-8 #### [facility] CLIA [id number] [address] [place] [address] [place] Monocytes/100 WBC (Bld) 7.6 % Normal [facility] Comment on above: Order Comment: Speci men Type: BLOOD SPECIMEN Ordering Facility: [facility] Address: [address] [place] [address] Performed By: #### 5 7021-8 #### [facility] CLIA [id number] [address] [place] [address] [place] Neutrophils (Bld) [#/Vol] 8.89 10*3/uL High 1.45-7.50 [facility] Comment on above: Order Comment: Speci men Type: BLOOD SPECIMEN Ordering Facility: [facility] Address: [address] [place] [address] Performed By: #### 5 7021-8 #### [facility] CLIA [id number] [address] [place] [address] [place] Neutrophils/100 WBC (Bld) 70.9 % Normal [facility] Comment on above: Order Comment: Speci men Type: BLOOD SPECIMEN Ordering Facility: [facility] Address: [address] [place] [address] Performed By: #### 5 7021-8 #### [facility] CLIA [id number] [address] [place] [address] [place] Nucleated RBC (Bld) [#/Vol] 10*3/uL Normal <0.01 [facility] Comment on above: Order Comment: Speci men Type: BLOOD SPECIMEN Ordering Facility: [facility] Address: [address] [place] [address] Performed By: #### 5 7021-8 #### [facility] CLIA [id number] [address] [place] [address] [place] Nucleated RBC/100 WBC (Bld) [Ratio] 0.0 /100 WBC Normal [facility] Comment on above: Order Comment: Speci men Type: BLOOD SPECIMEN Ordering Facility: [facility] Address: [address] [place] [address] Performed By: #### 5 7021-8 #### [facility] CLIA [id number] [address] [place] [address] [place] Platelet mean volume (Bld) [Entitic vol] 10.0 fL Normal 9.0-12.7 [facility] Comment on above: Order Comment: Speci men Type: BLOOD SPECIMEN Ordering Facility: [facility] Address: [address] [place] [address] Performed By: #### 5 7021-8 #### [facility] CLIA [id number] [address] [place] [address] [place] Platelets (Bld) [#/Vol] 459 10*3/uL High 150-400 [facility] Comment on above: Order Comment: Speci men Type: BLOOD SPECIMEN Ordering Facility: [facility] Address: [address] [place] [address] Performed By: #### 5 7021-8 #### [facility] CLIA [id number] [address] [place] [address] RBC (Bld) [#/Vol] 4.54 10*6/uL Normal 4.20-6.00 [facility] Comment on above: Order Comment: Speci men Type: BLOOD SPECIMEN Ordering Facility: [facility] Address: [address] [place] [address] Performed By: #### 5 7021-8 #### [facility] CLIA [id number] [address] [place] [address] WBC (Bld) [#/Vol] 12.55 10*3/uL High 3.70-11.00 [facility] Comment on above: Order Comment: Speci men Type: BLOOD SPECIMEN Ordering Facility: [facility] Address: [address] [place] [address] Performed By: #### 5 7021-8 #### [facility] CLIA [id number] [address] [place] [address] Comprehensive metabolic 2000 panelon 01-02-2025 Albumin [Mass/Vol] 4.0 g/dL Normal 3.2-5.0 [facility] Comment on above: Order Comment: Speci men Type: BLOOD SPECIMEN Ordering Facility: [facility] Address: [address] [place] [address] Performed By: #### S LACT #### [facility] CLIA [id number] [address] [place] [address] [place] [facility] ALP [Catalytic activity/Vol] 58 U/L Normal 45-117 [facility] Comment on above: Order Comment: Speci men Type: BLOOD SPECIMEN Ordering Facility: [facility] Address: [address] [place] [address] Performed By: #### S LACT #### [facility] CLIA [id number] [address] [place] [address] ALT [Catalytic activity/Vol] 15 U/L Normal 13-61 [facility] Comment on above: Order Comment: Speci men Type: BLOOD SPECIMEN Ordering Facility: [facility] Address: [address] [place] [address] Result Comment: Resu lts may be falsely depressed after the administration of Sulfasalazine and/or Sulfapyridine. Performed By: #### S LACT #### [facility] CLIA [id number] [address] [place] [address] [place] Anion gap [Moles/Vol] 11 mmol/L Normal 5-16 [facility] Comment on above: Order Comment: Speci men Type: BLOOD SPECIMEN Ordering Facility: [facility] Address: [address] [place] [address] Performed By: #### S LACT #### [facility] CLIA [id number] [address] [place] [address] [place] AST [Catalytic activity/Vol] 21 U/L Normal 8-34 [facility] Comment on above: Order Comment: Speci men Type: BLOOD SPECIMEN Ordering Facility: [facility] Address: [address] [place] [address] Result Comment: Resu lts may be falsely depressed after the administration of Sulfasalazine and/or Sulfapyridine. Performed By: #### S LACT #### [facility] CLIA [id number] [address] [place] [address] [place] Bilirubin [Mass/Vol] 0.6 mg/dL Normal 0.2-1.0 [facility] Comment on above: Order Comment: Speci men Type: BLOOD SPECIMEN Ordering Facility: [facility] Address: [address] [place] [address] Performed By: #### S LACT #### [facility] CLIA [id number] [address] [place] [address] [place] Calcium [Mass/Vol] 9.8 mg/dL Normal 8.5-10.5 [facility] Comment on above: Order Comment: Speci men Type: BLOOD SPECIMEN Ordering Facility: [facility] Address: [address] [place] [address] Performed By: #### S LACT #### [facility] CLIA [id number] [address] [place] [address] [place] Chloride [Moles/Vol] 102 mmol/L Normal 98-107 [facility] Comment on above: Order Comment: Speci men Type: BLOOD SPECIMEN Ordering Facility: [facility] Address: [address] [place] [address] Performed By: #### S LACT #### [facility] CLIA [id number] [address] [place] [address] [place] CO2 [Moles/Vol] 25 mmol/L Normal 21-32 [facility] Comment on above: Order Comment: Speci men Type: BLOOD SPECIMEN Ordering Facility: [facility] Address: [address] [place] [address] Performed By: #### S LACT #### [facility] CLIA [id number] [address] [place] [address] [place] Creatinine [Mass/Vol] 1.68 mg/dL High 0.50-1.40 [facility] Comment on above: Order Comment: Speci men Type: BLOOD SPECIMEN Ordering Facility: [facility] Address: [address] [place] [address] Result Comment: Jeanette ents receiving either N-Acetylcysteine (NAC) or Metamizole prior to venipuncture, may have falsely depressed results. Performed By: #### S LACT #### [facility] CLIA [id number] [address] [place] [address] [place] eGFRcr SerPlBld CKD-EPI 2020 46 mL/min/1.73m??? Low >=60 [facility] Comment on above: Order Comment: Speci men Type: BLOOD SPECIMEN Ordering Facility: [facility] Address: [address] [place] [address] Result Comment: Shruti mated Glomerular Filtration Rate (eGFR) is calculated using the 2020 CKD-EPI creatinine equation. This equation utilizes serum creatinine, sex, and age as parameters. The creatinine assay has traceable calibration to isotope dilution-mass spectrometry. Refer to KDIGO guidelines for clinical interpretation. In patients with unstable renal function, e.g. those with acute kidney injury, the eGFR may not accurately reflect actual GFR. Performed By: #### S LACT #### [facility] CLIA [id number] [address] [place], [place] [address] [place] Glucose [Mass/Vol] 125 mg/dL High 70-100 [facility] Comment on above: Order Comment: Wayne medrano Type: BLOOD SPECIMEN Ordering Facility: [facility] Address: [address] [place], [place] [id number] Result Comment: The [place] Diabetes Association (ADA) provides guidance for cutoff values for fasting glucose and random glucose. The ADA defines fasting as no caloric intake for at least 8 hours. Fasting plasma glucose results between 100 to 125 mg/dL indicate increased risk for diabetes (prediabetes). Fasting plasma glucose results greater than or equal to 126 mg/dL meet the criteria for diagnosis of diabetes. In the absence of unequivocal hyperglycemia, results should be confirmed by repeat testing. In a patient with classic symptoms of hyperglycemia or hyperglycemic crisis, random plasma glucose results greater than or equal to 200 mg/dL meet the criteria for diagnosis of diabetes. Reference: Standards of Medical Care in Diabetes 2016, [place] [employer] Association. Diabetes Care. 2016.39(Suppl 1). Results may be falsely elevated after the administration of Sulfapyridine. Results may be falsely depressed after the administration of Sulfasalazine. Performed By: #### S LACT #### [facility] CLIA [id number] [address] [place] [address] [place] Potassium [Moles/Vol] 4.1 mmol/L Normal 3.5-5.1 [facility] Comment on above: Order Comment: Wayne medrano Type: BLOOD SPECIMEN Ordering Facility: [facility] Address: [address] [place] [address] Performed By: #### S LACT #### [facility] CLIA [id number] [address] [place], [place] [address] [place] Protein [Mass/Vol] 7.6 g/dL Normal 6.0-8.5 [facility] Comment on above: Order Comment: Wayne medrano Type: BLOOD SPECIMEN Ordering Facility: [facility] Address: [address] [place] [address] Performed By: #### S LACT #### [facility] CLIA [id number] [address] [place] [address] Sodium [Moles/Vol] 138 mmol/L Normal 136-145 [facility] Comment on above: Order Comment: Speci men Type: BLOOD SPECIMEN Ordering Facility: [facility] Address: [address] [place] [address] Performed By: #### S LACT #### [facility] CLIA [id number] [address] [place] [address] [place] Urea nitrogen [Mass/Vol] 19 mg/dL Normal 7-26 [facility] Comment on above: Order Comment: Speci men Type: BLOOD SPECIMEN Ordering Facility: [facility] Address: [address] [place] [address] Performed By: #### S LACT #### [facility] CLIA [id number] [address] [place] [address] OF [facility] ED NOTEon 01-02-2025 ED NOTE HNO ID: [id number] Author: CHOLO PEREZ RN Service: Emergency Medicine Author Type: Registered Nurse Type: ED Notes Filed: 01/02/2025 10:32 Note Text: Hydralazine has not come from the pharmacy- med request sent. Says it was sent via tube station but not found in tube station [facility] ED NOTE HNO ID: [id number] Author: CHOLO PEREZ RN Service: Emergency Medicine Author Type: Registered Nurse Type: ED Notes Filed: 01/02/2025 10:31 Note Text: Boxed lunch given per request [facility] ED NOTE HNO ID: [id number] Author: RACHEL ADAN CT Service: ? Author Type: Clinical Customer Relations Coordinator Type: ED Notes Filed: 01/02/2025 09:16 Note Text: Patient refused gown [facility] ED PROV NOTEon 01-02-2025 ED PROV NOTE HNO ID: [id number] Author: CHRISSY HAGER MD Service: AFTERNOON INTENSIVE OP Author Type: Physician Type: ED Provider Notes Filed: 01/04/2025 07:07 Note Text: ED Provider Note Patient Name: Ciro Hawkins : 1965 SERVICE DATE: 01/02/25 History Patient presents with: Testicular Pain: Pt presents with L testicle pain x2 days, had a bump on testicles with US done Sunday with negative results. This is a 59-year-old male history of diabetes, hypertension, CVA who presents with left testicular pain. Patient states pain has developed over the last 2 days. Intermittently more painful at times sometimes just uncomfortable. He feels like the testicle is playing "hide and seek". Denies any known traumatic injury. He feels like it is a little bit swollen. No rash. No penile discharge, dysuria or hematuria. No abdominal pain nausea or vomiting. No fevers. He denies any sexual activity over the last couple of years. PAST MEDICAL HISTORY Diagnosis Date Avascular necrosis of bone (HCC) Degeneration of lumbar intervertebral disc Diabetes (HCC) High cholesterol Hypertension ICD (implantable cardioverter-defibrillator) in place Inguinal hernia Spinal stenosis Stage 3b chronic kidney disease (CKD) (HCC) Stroke (HCC) RUE weakness History reviewed. No pertinent surgical history. No family history on file. Social History[1] ALLERGIES No Known Allergies Review of Systems Physical Exam Vitals [01/02/25 0436] BP Pulse Temp Temp src Resp SpO2 Weight Height 198/93 76 36.6 ?C (97.9 ?F) Oral 18 100 % 94.3 kg (208 lb) 1.778 m (5' 10") Physical Exam Constitutional: General: He is not in acute distress. Appearance: He is obese. HENT: Mouth/Throat: Mouth: Mucous membranes are moist. Eyes: Conjunctiva/sclera: Conjunctivae normal. Cardiovascular: Rate and Rhythm: Normal rate and regular rhythm. Pulses: Normal pulses. Heart sounds: Normal heart sounds. Pulmonary: Effort: Pulmonary effort is normal. Breath sounds: Normal breath sounds. Abdominal: General: Bowel sounds are normal. There is no distension. Palpations: Abdomen is soft. Tenderness: There is no abdominal tenderness. There is no right CVA tenderness, left CVA tenderness or guarding. Genitourinary: Comments: No scrotal or testicular edema appreciated, no erythema or color change. No masses or testicular fullness appreciated. Tenderness posterior to the left testicle. Cremasteric reflex intact bilaterally. Skin: General: Skin is warm and dry. Capillary Refill: Capillary refill takes less than 2 seconds. Neurological: Mental Status: He is alert. Psychiatric: Behavior: Behavior normal. Diagnostic Testing ED Labs Ordered and Reviewed URINALYSIS (WITH MICROSCOPIC) WITH CULTURE IF INDICATED - Abnormal; Notable for the following components: Result Value Ref Range Glucose, Urine 3+ (*) Negative Protein, Urine 3+ (*) Negative Bacteria Rare (*) None Seen /HPF All other components within normal limits COMPREHENSIVE METABOLIC PANEL - Abnormal; Notable for the following components: Glucose 125 (*) 70 - 100 mg/dL Creatinine 1.68 (*) 0.50 - 1.40 mg/dL Estimated Glomerular Filtration Rate 46 (*) >=60 mL/min/1.73m? All other components within normal limits COMPLETE BLOOD COUNT AND DIFFERENTIAL - Abnormal; Notable for the following components: WBC 12.55 (*) 3.70 - 11.00 k/uL RDW-CV 16.4 (*) 11.5 - 15.0 % Platelet Count 459 (*) 150 - 400 k/uL Abs Neut 8.89 (*) 1.45 - 7.50 k/uL Abs Reeves 0.95 (*) <0.87 k/uL All other components within normal limits MAGNESIUM - Normal LIPASE - Normal Procedures ED Course / Clinical Impression Clinical Impressions as of 01/04/25 0707 Epididymitis Scrotal pain MDM / Disposition / Plan 59-year-old male presenting with left testicular pain x 2 days. He does endorse some swelling though I do not appreciate any on exam. No signs of Huma's gangrene. Exam is not concerning for torsion and patient already had ultrasound ordered in triage negative for torsion, mass, hernia or other abnormal finding. He does have tenderness to the posterior aspect of the testicle. Will treat for epididymitis. Discussed possibility of testicular irritation due to occult trauma and. Urinalysis was not indicative of infection. Basic lab work showed stable CKD, mild leukocytosis though within patient's prior baseline. No abdominal pain, flank pain or tenderness of these areas low concern for nephrolithiasis. Differential Diagnoses - Testicular pain is more likely for the following reason(s): suggested by HANDP - Epididymitis is more likely for the following reason(s): suggested by HANDP - Occult testicular trauma - Inguinal hernia is less likely for the following reason(s): no evidence on imaging and HANDP not suggestive - Testicular torsion is less likely for the following reason(s): no evidence on imaging and HANDP not suggestive (more content not included)... [facility] ED Triage Noteon 01-02-2025 ED Triage Note HNO ID: [id number] Author: ENA YADAV MD Service: Emergency Medicine Author Type: Physician Type: ED Triage Notes Filed: 01/02/2025 07:14 Note Text: ED TRIAGE PROVIDER NOTE Patient Name: Ciro Hawkins Service Date: 01/02/25 BRIEF HPI: This is a 59 year old male who presents to the ED with: History of stroke, hypertension, diabetes, and a right inguinal hernia who presents to the emergency department for evaluation for right scrotal pain. Patient states has been having scrotal pain for the last 2 days. He states pain has no alleviating or exacerbating factors. He denies dysuria, penile drainage or bleeding. BRIEF EXAM: Awake and Alert Non labored breathing Abdomen soft nontender nondistended. Patient with tenderness to palpation of the right scrotal area with fullness appreciated at the spermatic cord lesion. No sliding hernia noted. INITIAL WORKUP AND DECISION MAKING: Orders Placed This Encounter US SCROTUM AND CONTENTS US DOPPLER COMPLETE CT ABD/PEL W IVCON Urinalysis w Microscopic, reflex Culture COMPREHENSIVE METABOLIC PANEL (BMP+LFT) MAGNESIUM BLOOD LIPASE BLOOD CBC + AUTO DIFF iv contrast (radiology procedure) Patient presenting for evaluation for scrotal pain. Presentation is concerning for testicular torsion versus epididymitis versus epididymal orchitis versus incarcerated versus strangulated hernia. As a result workup will be completed as above. SIGNATURE: Ena Yadav MD [facility] Lipase SerPl-cCncon 01-03-20 25 Lipase [Catalytic activity/Vol] 55 U/L Normal - [facility] Comment on above: Order Comment: Speci men Type: BLOOD SPECIMEN Ordering Facility: [facility] Address: [address] [place] [address] Performed By: #### S LACT #### [facility] CLIA [id number] [address] [id number] [place] Magnesium SerPl-mCncon 01-02 Magnesium [Mass/Vol] 1.7 mg/dL Normal 1.6-2.6 [facility] Comment on above: Order Comment: Speci men Type: BLOOD SPECIMEN Ordering Facility: [facility] Address: [facility] [address] [address] Performed By: #### S LACT #### [facility] CLIA [id number] [address] [place] [address] [place] US DOPPLER COMPLETEon 2024 US DOPPLER COMPLETE * * *Final Report* * * DATE OF EXAM: Jan 02 2025 5:27AM RHU 1033 - US DOPPLER COMPLETE / PROCEDURE REASON: Scrotal pain, nontraumatic * * * * Physician Interpretation * * * * EXAMINATION: SCROTAL ULTRASOUND WITH DOPPLER IMAGING CLINICAL HISTORY: Scrotal pain, nontraumatic TECHNIQUE: Sonography of the scrotal contents with color flow and spectral Doppler imaging of the testicular vasculature was performed. Images were obtained and stored in a permanent archive. M: US_2 COMPARISON: CT 2024 RESULT: RIGHT SCROTUM: Right testis: 3.4 x 1.4 x 2.6 cm. Homogeneous with no calcifications or mass. Normal intratesticular arterial and venous flow with normal spectral waveforms. Epididymis: Normal. Vascular flow on Color Doppler is symmetric to the contralateral side. Hydrocele: none Varicocele: absent LEFT SCROTUM: Left testis: 3.0 x 1.5 x 2.3 cm. Homogeneous with no calcifications or mass. Normal intratesticular arterial and venous flow with normal spectral waveforms. Epididymis: Normal. Vascular flow on Color Doppler is symmetric to the contralateral side. Hydrocele: none Varicocele: absent IMPRESSION: 1. Normal sonographic appearance of the scrotal contents. 2. Normal arterial and venous flow within both testes. Staffing Program Manager: LAUREANO Transcribe Date/Time: Jan 02 2025 5:34A Dictated by : YESSY SCANLON MD This examination was interpreted and the report reviewed and electronically signed by: YESSY SCANLON MD on Jan 02 2025 5:38AM EST [id number] Normal [facility] US SCROTUM AND CONTENTSon US SCROTUM AND CONTENTS * * *Final Report* * * DATE OF EXAM: Jan 02 2025 5:27AM RHU 1063 - US SCROTUM AND CONTENTS / PROCEDURE REASON: Scrotal pain, nontraumatic * * * * Physician Interpretation * * * * EXAMINATION: SCROTAL ULTRASOUND WITH DOPPLER IMAGING CLINICAL HISTORY: Scrotal pain, nontraumatic TECHNIQUE: Sonography of the scrotal contents with color flow and spectral Doppler imaging of the testicular vasculature was performed. Images were obtained and stored in a permanent archive. M: USC_2 COMPARISON: CT 2024 RESULT: RIGHT SCROTUM: Right testis: 3.4 x 1.4 x 2.6 cm. Homogeneous with no calcifications or mass. Normal intratesticular arterial and venous flow with normal spectral waveforms. Epididymis: Normal. Vascular flow on Color Doppler is symmetric to the contralateral side. Hydrocele: none Varicocele: absent LEFT SCROTUM: Left testis: 3.0 x 1.5 x 2.3 cm. Homogeneous with no calcifications or mass. Normal intratesticular arterial and venous flow with normal spectral waveforms. Epididymis: Normal. Vascular flow on Color Doppler is symmetric to the contralateral side. Hydrocele: none Varicocele: absent IMPRESSION: 1. Normal sonographic appearance of the scrotal contents. 2. Normal arterial and venous flow within both testes. Staffing Program Manager: LAUREANO Transcribe Date/Time: Jan 02 2025 5:34A Dictated by : YESSY SCANLON MD This examination was interpreted and the report reviewed and electronically signed by: YESSY SCANLON MD on Jan 02 2025 5:38AM EST [id number] Normal [facility] Urinalysis complete panel (U )on 01-02-2025 Bacteria LM.HPF (Urine sed) [#/Area] Rare Abnormal None Seen [facility] Comment on above: Order Comment: Speci men Type: BLOOD SPECIMEN Ordering Facility: [facility] Address: [address] [place] [address] Performed By: #### S LACT #### [facility] CLIA [id number] [address] [place] [address] [place] Bilirubin Ql (U) Negative Normal Negative [facility] Comment on above: Order Comment: Speci men Type: BLOOD SPECIMEN Ordering Facility: [facility] Address: [address] [place] [address] Performed By: #### S LACT #### [facility] CLIA [id number] [address] [place] [address] [place] Clarity (Unsp spec) Clear Normal Clear [facility] Comment on above: Order Comment: Speci men Type: BLOOD SPECIMEN Ordering Facility: [facility] Address: [address] [place] [address] Performed By: #### S LACT #### [facility] CLIA [id number] [address] [place] [address] [place] Color (U) Yellow Normal Yellow [facility] Comment on above: Order Comment: Speci men Type: BLOOD SPECIMEN Ordering Facility: [facility] Address: [address] [place] [address] Performed By: #### S LACT #### [facility] CLIA [id number] [address] [place] [address] [place] Epithelial cells LM.HPF (Urine sed) [#/Area] Few Normal [facility] Comment on above: Order Comment: Speci men Type: BLOOD SPECIMEN Ordering Facility: [facility] Address: [address] [place] [address] Performed By: #### S LACT #### [facility] CLIA [id number] [address] [place] [address] [place] Glucose Test strip (U) [Mass/Vol] 3+ Abnormal Negative [facility] Comment on above: Order Comment: Speci men Type: BLOOD SPECIMEN Ordering Facility: [facility] Address: [address] [place] [address] Performed By: #### S LACT #### [facility] CLIA [id number] [address] [place] [address] [place] Hemoglobin Ql (U) Negative Normal Negative [facility] Comment on above: Order Comment: Speci men Type: BLOOD SPECIMEN Ordering Facility: [facility] Address: [address] [place] [address] Performed By: #### S LACT #### [facility] CLIA [id number] [address] [place] [address] OF [facility] Ketones Ql (U) Negative Normal Negative [facility] Comment on above: Order Comment: Speci men Type: BLOOD SPECIMEN Ordering Facility: [facility] Address: [address] [place] [address] Performed By: #### S LACT #### [facility] CLIA [id number] [address] [place] [address] [place] Leukocyte esterase Test strip Ql (U) Negative Normal Negative [facility] Comment on above: Order Comment: Speci men Type: BLOOD SPECIMEN Ordering Facility: [facility] Address: [address] [place] [address] Performed By: #### S LACT #### [facility] CLIA [id number] [address] [place] [address] [place] Nitrite Ql (U) Negative Normal Negative [facility] Comment on above: Order Comment: Speci men Type: BLOOD SPECIMEN Ordering Facility: [facility] Address: [address] [place] [address] Performed By: #### S LACT #### [facility] CLIA [id number] [address] [place] [address] [place] pH (U) 6.0 [pH] Normal 5.0-8.0 [facility] Comment on above: Order Comment: Speci men Type: BLOOD SPECIMEN Ordering Facility: [facility] Address: [address] [place] [address] Performed By: #### S LACT #### [facility] CLIA [id number] [address] [place] [address] [place] Protein (U) [Mass/Vol] 3+ Abnormal Negative [facility] Comment on above: Order Comment: Speci men Type: BLOOD SPECIMEN Ordering Facility: [facility] Address: [address] [place] [address] Performed By: #### S LACT #### [facility] CLIA [id number] [address] [place] [address] RBC LM.HPF (Urine sed) [#/Area] 0-3 /HPF Normal 0-3 /HPF [facility] Comment on above: Order Comment: Speci men Type: BLOOD SPECIMEN Ordering Facility: [facility] Address: [address] [place] [address] Performed By: #### S LACT #### [facility] CLIA [id number] [address] [place] [address] [place] Specific gravity (U) [Rel density] 1.009 Normal 1.005-1.030 [facility] Comment on above: Order Comment: Speci men Type: BLOOD SPECIMEN Ordering Facility: [facility] Address: [address] [place] [address] Performed By: #### S LACT #### [facility] CLIA [id number] [address] [place] [address] Urobilinogen Ql (U) Negative Normal Negative [facility] Comment on above: Order Comment: Speci men Type: BLOOD SPECIMEN Ordering Facility: [facility] Address: [address] [place] [address] Performed By: #### S LACT #### [facility] CLIA [id number] [address] [place] [address] WBC LM.HPF (Urine sed) [#/Area] 0-5 /HPF Normal 0-5 /HPF [facility] Comment on above: Order Comment: Speci men Type: BLOOD SPECIMEN Ordering Facility: [facility] Address: [address] [place] [address] Performed By: #### S LACT #### [facility] CLIA [id number] [address] [place] [address] XR FOOT MINIMUM 3 VIEWS LEFT on 12-01-2024 XR FOOT MINIMUM 3 VIEWS LEFT ORIGINAL EXAMINATION: THREE XRAY VIEWS OF THE LEFT FOOT 11/28/2024 2:06 pm COMPARISON: None. HISTORY: ORDERING SYSTEM PROVIDED HISTORY: Reason for Exam: diabetic ulcer FINDINGS: Vascular calcification is evident. Mild scattered degenerative changes are seen. There is some soft tissue swelling adjacent to the 5th MTP joint. No fracture, dislocation, focal bone destruction, or periosteal reaction seen. No other contributory finding. IMPRESSION: No evidence for osteomyelitis on this exam. Interpreted by: Raeann Watson MD Preliminary Report By: Raeann Watson MD Electronically signed By Raeann Watson MD Dictated Date: 12/01/2024 8:20:42 AM Prelim Date: 12/01/2024 8:21:32 AM Sign Date: 12/01/2024 8:21:32 AM Ordering Provider: [facility] DERMPATH LAB- DERMATOPATHOLO GYon 09-23-2024 DERMPATH LAB- DERMATOPATHOLOGY Pathology report.total SEE COMMENT Dermatopathology Case: [id number] Authorizing Provider: Brent Wakefield MD Collected: 09/23/2024 1037 Ordering Location: [facility] Received: 09/23/2024 1607 Pathologist: Martha Lima MD Specimen: SKIN, Right Upper Eyelid Path report.final diagnosis SEE COMMENT SKIN, RIGHT UPPER EYELID, SHAVE BIOPSY: SEBORRHEIC KERATOSIS. Electronically signed out by MARTHA LIMA MD at 1309 EDT Laboratory comment By the signature on this report, the individual or group listed as making the Final Interpretation/Diagnosis certifies that they have reviewed this case. Path report.relevant Hx SEE COMMENT Encounter Diagnosis: Neoplasm of uncertain behavior of skin [id number] A Collection Comments: Differential Diagnosis: NUB Check Margins Yes/No?: Comments: BCC v. Sebaceous hyperplasia Dermpath Lab: Routine Histopathology (formalin-fixed tissue) Finding Region: Right Upper Eyelid Specimen Objective: 0.4 x 0.4 papule Path report.microscopic observation Microscopic examination performed. Path report.gross observation SEE COMMENT A: Received in formalin is a 4 x 4 x 1 mm piece of skin. It is bundy in color. It is shave in shape. It was embedded in toto. The specimen was inked. The specimen was grossed by Miracle Scales. [facility]ulatory Lesion biopsyon 09-23-2024 Type of biopsy: matson ential Informed consent: discussed and consent obtained Timeout: patient name, date of , surgical site, and procedure verified Procedure prep: Patient was prepped and draped Anesthesia: the lesion was anesthetized in a standard fashion Anesthetic: 1% lidocaine w/ epinephrine 1-100,000 local infiltration Instrument used: #10 blade Hemostasis achieved with: pressure and electrodesiccation Outcome: patient tolerated procedure well Post-procedure details: sterile dressing applied and wound care instructions given Dressing type: petrolatum and bandage [facility] Work Phone: [facility] Work Phone: Mohs surgeryon 09-23-2024 Consent obtained: ronit ruvalcaba Nikolski Protocol: Procedure explained and questions answered to patient or proxy's satisfaction: Yes Test results available and properly labeled: Yes Pathology report reviewed: Yes External notes reviewed: Yes Photo or diagram used for site identification: Yes Site/side marked: Yes Slide independently reviewed by Mohs surgeon: Yes Immediately prior to procedure a time out was called: Yes Patient identity confirmed: verbally with patient Preparation: Patient was prepped and draped in usual sterile fashion Anticoagulation: Was the anticoagulation regimen changed prior to Mohs? 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 The area positive by previous biopsy was identified and confirmed with the patient. The area of clinically obvious tumor was debulked using a curette and/or scalpel as needed. An incision was made following the Mohs approach through the skin. The specimen was taken to the lab, divided into 2 piece(s) and appropriately chromacoded and processed. Depth of defect: subcutaneous fat Patient tolerance of procedure: tolerated well, no immediate complications Reconstruction: Was the defect reconstructed? Yes Was reconstruction performed by the same [facility] surgeon? Yes Setting of reconstruction: outpatient office When was reconstruction performed? same day Type of reconstruction: linear Linear reconstruction: complex Length of linear repair (cm): 6 Subcutaneous Layers (Deep Stitches) Suture size: 4-0 Suture type: Vicryl Stitches: Buried vertical mattress Fine/surface layer approximation (top stitches) Epidermal/Superficial suture size: 5-0 Epidermal/Superficial suture type: Prolene Stitches: simple running Suture removal (days): 7 Hemostasis achieved with: suture Outcome: patient tolerated procedure well with no complications Post-procedure details: sterile dressing applied and wound care instructions given Dressing type: pressure dressing [facility] Work Phone: [facility] surgeryOrdered By: Henry Ortega on 09-23-2024 [facility] MRI SPINE THORACIC W/ + W/O CONTRASTon 09-19-2024 MRI SPINE THORACIC W/ + W/O CONTRAST ORIGINAL EXAMINATION: MRI OF THE THORACIC SPINE WITHOUT AND WITH CONTRAST 09/18/2024 4:25 pm TECHNIQUE: Multiplanar multisequence MRI of the thoracic spine was performed without and with the administration of intravenous contrast. COMPARISON: CT abdomen and pelvis 2024. HISTORY: ORDERING SYSTEM PROVIDED HISTORY: Reason for Exam: T12 lytic lesion FINDINGS: On the scalp projection degenerative changes are present in the cervical spine with canal stenosis greatest at C4-C5. There is a 2 cm smoothly marginated lesion in the right T12 vertebral body extending into the right pedicle. This is of increased T1 and increased T2 signal and does not enhance with contrast. The signal decreases on the fat saturated images indicating high fat content. Multilevel degenerative disc space narrowing is present. No herniated disc or nerve root impingement. The lateral alignment is anatomic. The thoracic spinal cord is of normal caliber and signal intensity. No paraspinal lesion is identified. No focus of abnormal contrast enhancement. 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 Multilevel degenerative changes without significant canal or foraminal stenosis. Interpreted by: Mario Stearns Preliminary Report By: Mario Stearns Electronically signed By Mario Stearns Dictated Date: 09/19/2024 4:53:12 AM Prelim Date: 09/19/2024 4:59:45 AM Sign Date: 09/19/2024 4:59:45 AM Ordering Provider: NELIDA S[facility]NC[facility] DERMPATH LAB- DERMATOPATHOLO Natacha 08-21-2024 DERMPATH LAB- DERMATOPATHOLOGY Pathology report.total SEE COMMENT Dermatopathology Case: [id number] Authorizing Provider: Brent Wakefield MD Collected: 08/21/2024 1412 Ordering Location: [facility] Received: 08/21/2024 1540 Pathologist: Lois Castanon MD Specimen: SKIN, Right Lateral Dorsal Mid Forearm Path report.final diagnosis SEE COMMENT SKIN, RIGHT LATERAL DORSAL MID FOREARM, EXCISION: CHANGES CONSISTENT WITH PREVIOUS PROCEDURE, INKED MARGINS FREE IN THE PLANES OF SECTIONS EXAMINED, WITHOUT RESIDUAL BASAL CELL CARCINOMA SEEN. Electronically signed out by Lois Castanon MD at 1341 EDT Laboratory comment By the signature on this report, the individual or group listed as making the Final Interpretation/Diagnosis certifies that they have reviewed this case. Path report.relevant Hx SEE COMMENT Encounter Diagnosis: Basal cell carcinoma (BCC) of skin of right upper extremity including shoulder [id number] A Collection Comments: Differential Diagnosis: BCC ([id number]) Check Margins Yes/No?: Yes Comments: 4 mm margins, indication stitch at proximal tip Dermpath Lab: Routine Histopathology (formalin-fixed tissue) Finding Region: Right Forearm - Posterior Specimen Objective: Is a 0.6 x 0.6 cm scar Path report.microscopic observation Microscopic examination reveals a specimen that extends into the subcutaneous fat. An area with horizontally oriented collagen and vertically oriented vessels is present. A step section was performed. Path report.gross observation SEE COMMENT A: Received in formalin is a bundy and brown, ellipsoid piece of skin measuring 38 x 14 x 5 mm. It was received with an indication stitch designated by the surgeon as the "proximal tip", referred to here as 12 o'clock for the purpose of gross description. The specimen was inked blue on the 12-6 o'clock margin and inked black on the 6-12 o'clock margin, then serially sectioned and embedded in toto in four blocks. Block 1 is at 12 o'clock and block 4 is at 6 o'clock. The tips are embedded in blocks 1 and 4. The specimen was grossed by Miracle Scales. [facility] No Panel Informationon 08-21 [facility] Work Phone: Skin excisionon 08-21-2024 Lesion length (cm): 0.6 Lesion width (cm): 0.6 Margin per side (cm): 0.4 Total excision diameter (cm): 1.4 Informed consent: discussed and consent obtained Timeout: patient name, date of , surgical site, and procedure verified Procedure prep: Patient prepped in sterile fashion Anesthesia: the lesion was anesthetized in a standard fashion Anesthetic: 1% lidocaine w/ epinephrine 1-100,000 local infiltration Instrument used: #15 blade Hemostasis achieved with: electrodesiccation Outcome: patient tolerated procedure well with no complications Post-procedure details: sterile dressing applied and wound care instructions given Dressing type: pressure dressing and Alex wrap Additional details: The nature of the diagnosis was explained. The lesion is a skin cancer. It is locally aggressive but has a very low to non-existent risk of spreading. The condition is associated with sun exposure. Warning signs of non-melanoma skin cancer discussed. Patient was instructed to perform monthly self skin examination. We recommended that the patient have regular full skin exams given an increased risk of subsequent skin cancers. The patient was instructed to use sun protective behaviors including use of broad spectrum sunscreens and sun protective clothing to reduce risk of skin cancers. Excision was discussed with the patient. The risks, benefits and potential adverse effects were reviewed. Discussion included but was not limited to the cure rate, relative cost, wound care requirements, activity restrictions, likely scar outcome and time to heal were reviewed. It was explained that the scar would be longer than the original lesion. The patient elected to proceed with exicision today. [facility] Work Phone: Skin repairon 08-21-2024 Complexity: Intermed iate Final length (cm): 4.2 Informed consent: discussed and consent obtained Timeout: patient name, date of , surgical site, and procedure verified Procedure prep: Patient prepped in sterile fashion Anesthesia: the lesion was anesthetized in a standard fashion Anesthetic: 1% lidocaine w/ epinephrine 1-100,000 local infiltration Reason for type of repair: reduce tension to allow closure Undermining: edges undermined Subcutaneous layers (deep stitches): Suture size: 4-0 Suture type: Vicryl (polyglactin 910) Stitches: Buried vertical mattress Fine/surface layer approximation (top stitches): Suture size: 5-0 Suture type: fast-absorbing plain gut Stitches: simple running Hemostasis achieved with: electrodesiccation Outcome: patient tolerated procedure well with no complications Post-procedure details: sterile dressing applied and wound care instructions given Dressing type: pressure dressing [facility] Work Phone: Mohs surgeryon 08-19-2024 Consent obtained: ronit ruvalcaba Nikolski Protocol: Procedure explained and questions answered to patient or proxy's satisfaction: Yes Test results available and properly labeled: Yes Pathology report reviewed: Yes External notes reviewed: Yes Photo or diagram used for site identification: Yes Site/side marked: Yes Slide independently reviewed by Mohs surgeon: Yes Immediately prior to procedure a time out was called: Yes Patient identity confirmed: verbally with patient Preparation: Patient was prepped and draped in usual sterile fashion Anticoagulation: Is the patient taking prescription anticoagulant and/or aspirin prescribed/recommended by a physician? No Was the anticoagulation regimen changed prior to Mohs? 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 No Micrographic Surgery Details: Post-operative length (cm): 2.8 Post-operative width (cm): 2.5 Number of Mohs stages: 2 Stage 1 Comments: The patient was brought into the operating room and placed in the procedure chair in the appropriate position. The area positive by previous biopsy was identified and confirmed with the patient. The area of clinically obvious tumor was debulked using a curette and/or scalpel as needed. An incision was made following the Mohs approach through the skin. The specimen was taken to the lab, divided into 4 piece(s) and appropriately chromacoded and processed. Tumor was seen on the lateral margins as indicated on the on the Mohs map. Squamous cell carcinoma in situ. Histologic examination revealed enlarged, atypical keratinocytes with large nuclear to cytoplasmic ratio extending throughout the full thickness of an epidermis. Tumor features identified on Mohs section: Squamous Cell Carcinoma in Situ Depth of invasion: Epidermis Stage 2 Comments: The area of positivity as noted on the Mohs map in the previous stage was identified and removed using the Mohs technique. The specimen was taken to the lab and appropriately chromacoded and processed in 1 piece(s). Tumor features identified on Mohs section: no tumor identified Depth of defect: subcutaneous fat Patient tolerance of procedure: tolerated well, no immediate complications Reconstruction: Was the defect reconstructed?: No Repair: After a discussion with the patient regarding the options for wound closure, a decision was made to proceed with second intention healing. Dressing/Follow-up: Surgifoam was placed in the wound. A pressure dressing was placed to help stabilize the wound and to minimize the risk of postoperative bleeding. Wound care was discussed, and the patient was given written post-operative wound care instructions. [facility] Work Phone: [facility] Work Phone: [facility] 07-21-2024 [facility] HNO ID: [id number] Author: JOSE LUIS VIVEROS RN Service: Wound/Ostomy Author Type: Registered Nurse Type: Allied Health Filed: 07/21/2024 15:03 Note Text: Summary: Wound Care Nurse Consult Wound Care Nurse Consult Patient: Ciro Hawkins : 1965 Admit Date: 2024 REASON FOR CONSULT: left arm cellulitis ASSESSMENT: Patient states this was skin cancer removed by his dermatology Dr. Wakefield; He is not sure if he had a follow up appointment or not. Wound 07/18/24 165 Surgical Closed Surgical Incision Arm Anterior;Left;Upper (Active) Properties Placement Date 07/18/24 Placement Time 1653 Location Arm Primary Wound Type Surgical Secondary Wound Type - Surgical Closed Surgical Incision Wound Location Orientation Anterior;Left;Upper Assessments 07/21/2024 3:01 PM Wound Image Site Assessment Pateros;Yellow (dry drainage over incision) Shruthi-Wound Assessment Erythematous;Warm;Dry Wound Length (cm) 0 cm Wound Width (cm) 0 cm Wound Surface Area (cm2) 0 cm2 Wound Depth (cm) 0 cm Wound Volume (cm3) 0 cm3 Drainage Description Serous Drainage Amount Scant Odor None Treatments Open to Air No associated orders. RECOMMENDATIONS: manual tester Communication Order; Dressing recommendations require a provider's order, please obtain and place as a "Dressing Care" order. Left Arm: clean with soap and water, pat dry. Apply xeroform, ABD, kerlix, change daily. Follow up with Distillation Operator Helper outpatient. Re-consult Wound Care if skin or wounds deteriorate further or if new problems arise. Normal [facility] CNCOon 07-21-2024 CNCO Letter Text Normal [facility] CNDSon 07-21-2024 CNDS HNO ID: [id number] Author: JORDYN URRUTIA MD Service: General Internal Medicine Author Type: Physician Type: Discharge Summary Filed: 07/21/2024 15:39 Note Text: DISCHARGE SUMMARY PATIENT NAME: Ciro Hawkins ADMISSION DATE: 2024 Date or Evaluation: 07/21/2024 DISCHARGE DATE: 07/21/2024 ATTENDING PHYSICIAN: Jordyn Urrutia MD Code Status: Full Code Highest Readmission Risk Score: 11 The 30 day readmissions risk score is derived from an internally validated risk model which evaluates patient level characteristics, utilization history, medication orders and lab results up until the day of discharge. Patients with a score of 39 or above are considered highest risk for readmission. Specific patient level drivers will be listed at the bottom of the summary. CONSULTING TEAMS DURING HOSPITALIZATION: Treatment Team: Attending Provider: Jordyn Urrutia MD Attending: MR JOSS MORGAN REASON FOR HOSPITALIZATION: Abdominal pain DIAGNOSIS: Sepsis Left upper extremity cellulitis, much improved Leukocytosis, improved Abdominal pain, reason Right inguinal hernia, stable Hypertension Acute transaminitis, improved Hyponatremia, resolved T12 vertebral body lesion, concern for multiple myeloma versus benign, highly suggest to obtain outpatient MRI thoracic spine for further evaluation Type II diabetes mellitus Hx of stroke Chronic kidney disease (stage III) Hypertension Hyperlipidemia Hx of basal cell carcinoma Hx of squamous cell carcinoma of the skin Hx of tobacco abuse OPERATIONS DURING HOSPITALIZATION: None HOSPITAL COURSE: Patient is a 59-year-old male who presents today to the [facility] emergency department for further evaluation of abdominal pain. He also complains of nausea but no vomiting. Patient is also noted to have left upper extremity incision site redness. Patient recently had shave biopsy of his left upper extremity forearm for his ongoing melanoma/skin cancer treatments. Patient admitted for experiencing abdominal pains, left upper extremity incision site cellulitis. General surgery consulted, underwent CT abdomen testing, no strangulation but stable hernia noted, surgery signed off. Provided IV antibiotics, wound care provided. Cellulitis much improved. Transitioned to oral antibiotic therapy and topical antibiotic ointments. 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 Highly suggest to get outpatient thoracic MRI spine for further evaluation, closely follow-up with oncologist, PCP in 2 to 3 weeks. PATIENT CONDITION AT DISCHARGE: Stable DISCHARGE DISPOSITION: Home with Self Care Physical Exam: General: alert and oriented x3, resting comfortably Neck: supple, no hepatojugular reflux or jugular venous distention, no carotid bruits Lungs: clear to auscultation bilaterally, no wheezing, rales, or rhonchi Cardiac: regular rate and rhythm, normal S1 and S2, no murmurs, gallops, or rubs Abdomen: soft, nontender, nondistended, bowel sounds present Extremities: no edema, cyanosis, or clubbing Skin: erythema over site of recent shave excision on left upper extremity DIET: Resume pre-hospital diet ACTIVITY: Resume pre-hospital activity ALLERGIES No Known Allergies DISCHARGE MEDICATION: Medication List START taking these medications bacitracin 500 unit/gram ointment Apply to affected area two times a day for 5 days. cefdinir 300 mg capsule Commonly known as: OMNICEF Take 1 capsule by mouth two times a day for 5 days. sulfamethoxazole-trimethopr im 800-160 mg per tablet Commonly known as: BACTRIM DS Take 1 tablet by mouth two times a day for 5 days. CHANGE how you take these medications insulin lispro 100 unit/mL injection Commonly known as: HumaLOG U-100 Insulin Inject 8 units subcutaneously 3 times daily before meals. What changed: how much to take how to take this when to take this additional instructions CONTINUE taking these medications acetaminophen 325 mg tablet Commonly known as: TYLENOL atorvastatin 20 mg tablet Commonly known as: LIPITOR bisacodyl 10 mg Supp Commonly known as: DULCOLAX cloNIDine HCl 0.1 mg tablet Commonly known as: CATAPRES cloNIDine TTS 0.3 mg/24 hr Commonly known as: CATAPRES-TTS docusate sodium 100 mg capsule Commonly known as: COLACE FARXIGA 10 mg tablet Generic drug: dapagliflozin propanediol glucagon 1 mg/mL injection Commonly known as: GLUCAGEN guaiFENesin-dextromethorpha n 100-10 mg/5 mL syrup Commonly known as: ROBITUSSIN DM hydrALAZINE 10 mg tablet Commonly known as: APRESOLINE ketoconazole 2 % shampoo Commonly known as: NIZORAL LANTUS SOLOSTAR U-100 INSULIN SUBCUTANEOUS loperamide HCl 2 mg Tab Commonly known as: IMODIUM MAALOX ADVANCED 200-200-20 mg/5 m (more content not included)... [facility] NURSING PROGon 07-21-2024 NURSING PROG HNO ID: [id number] Author: DASIA JUAREZ, RN Service: Nursing Author Type: Registered Nurse Type: Nursing Progress Note Filed: 07/21/2024 05:03 Note Text: Pt declined Blood sugar check, long acting insulin glargine, and 0600am lab draws. Pt educated on importance. Pt declined. [facility] Basic metabolic 2000 panelon 07-20-2024 Anion gap [Moles/Vol] 11 mmol/L Normal 5-16 [facility] Comment on above: Order Comment: Speci men Type: VENOUS BLOOD SPECIMEN Ordering Facility: [facility] Address: [address] [place], [place] [id number] Performed By: #### 2 4344-4 #### [facility] CLIA [id number] [address] [place], [place] [id number] [place] Calcium [Mass/Vol] 9.0 mg/dL Normal 8.5-10.5 [facility] Comment on above: Order Comment: Speci men Type: VENOUS BLOOD SPECIMEN Ordering Facility: [facility] Address: [facility] [place] [address] Performed By: #### 2 4344-4 #### [facility] CLIA [id number] [address] [place] [address] [place] Chloride [Moles/Vol] 108 mmol/L High 98-107 [facility] Comment on above: Order Comment: Speci men Type: VENOUS BLOOD SPECIMEN Ordering Facility: [facility] Address: [facility] [place] [address] Performed By: #### 2 4344-4 #### [facility] CLIA [id number] [address] [place] [address] [place] CO2 [Moles/Vol] 21 mmol/L Normal 21-32 [facility] Comment on above: Order Comment: Speci men Type: VENOUS BLOOD SPECIMEN Ordering Facility: [facility] Address: [facility] [place] [address] Performed By: #### 2 4344-4 #### [facility] CLIA [id number] [address] [place] [address] [place] Creatinine [Mass/Vol] 1.97 mg/dL High 0.50-1.40 [facility] Comment on above: Order Comment: Speci men Type: VENOUS BLOOD SPECIMEN Ordering Facility: [facility] Address: [address] [place] [address] Result Comment: Jeanette ents receiving either N-Acetylcysteine (NAC) or Metamizole prior to venipuncture, may have falsely depressed results. Performed By: #### 2 4344-4 #### [facility] CLIA [id number] [address] [place] [address] [place] Creatinine and Glomerular filtration rate.predicted panel (S/P/Bld) 38 mL/min/1.73m??? Low >=60 [facility] Comment on above: Order Comment: Wayne medrano Type: VENOUS BLOOD SPECIMEN Ordering Facility: [facility] Address: [address] [place] [address] Result Comment: Shruti mated Glomerular Filtration Rate (eGFR) is calculated using the 2020 CKD-EPI creatinine equation. This equation utilizes serum creatinine, sex, and age as parameters. The creatinine assay has traceable calibration to isotope dilution-mass spectrometry. Refer to KDIGO guidelines for clinical interpretation. In patients with unstable renal function, e.g. those with acute kidney injury, the eGFR may not accurately reflect actual GFR. Performed By: #### 2 4344-4 #### [facility] CLIA [id number] [address] [place] [address] [place] Glucose [Mass/Vol] 129 mg/dL High 70-100 [facility] Comment on above: Order Comment: Wayne medrano Type: VENOUS BLOOD SPECIMEN Ordering Facility: [facility] Address: [address] [place] [address] Result Comment: The [place] Diabetes Association (ADA) provides guidance for cutoff values for fasting glucose and random glucose. The ADA defines fasting as no caloric intake for at least 8 hours. Fasting plasma glucose results between 100 to 125 mg/dL indicate increased risk for diabetes (prediabetes). Fasting plasma glucose results greater than or equal to 126 mg/dL meet the criteria for diagnosis of diabetes. In the absence of unequivocal hyperglycemia, results should be confirmed by repeat testing. In a patient with classic symptoms of hyperglycemia or hyperglycemic crisis, random plasma glucose results greater than or equal to 200 mg/dL meet the criteria for diagnosis of diabetes. Reference: Standards of Medical Care in Diabetes 2016, [place] [employer] Association. Diabetes Care. 2016.39(Suppl 1). Results may be falsely elevated after the administration of Sulfapyridine. Results may be falsely depressed after the administration of Sulfasalazine. Performed By: #### 2 4344-4 #### [facility] CLIA [id number] [address] [place] [address] [place] Potassium [Moles/Vol] 3.7 mmol/L Normal 3.5-5.1 [facility] Comment on above: Order Comment: Speci men Type: VENOUS BLOOD SPECIMEN Ordering Facility: [facility] Address: [address] [place] [address] Performed By: #### 2 4344-4 #### [facility] CLIA [id number] [address] [place] [address] [place] Sodium [Moles/Vol] 140 mmol/L Normal 136-145 [facility] Comment on above: Order Comment: Speci men Type: VENOUS BLOOD SPECIMEN Ordering Facility: [facility] Address: [address] [place] [address] Performed By: #### 2 4344-4 #### [facility] CLIA [id number] [address] [place] [address] [place] Urea nitrogen [Mass/Vol] 22 mg/dL Normal 7-26 [facility] Comment on above: Order Comment: Speci men Type: VENOUS BLOOD SPECIMEN Ordering Facility: [facility] Address: [address] [place] [address] Performed By: #### 2 4344-4 #### [facility] CLIA [id number] [address] [place] [address] [place] CBC W Auto Differential pane l (Bld)on 07-20-2024 Basophils (Bld) [#/Vol] 0.11 10*3/uL High <0.11 [facility] Comment on above: Order Comment: Speci men Type: VENOUS BLOOD SPECIMEN Ordering Facility: [facility] Address: [address] [place] [address] Performed By: #### 2 4344-4 #### [facility] CLIA [id number] [address] [place] [address] [place] Basophils/100 WBC (Bld) 0.7 % Normal [facility] Comment on above: Order Comment: Speci men Type: VENOUS BLOOD SPECIMEN Ordering Facility: [facility] Address: [address] [place] [address] Performed By: #### 2 4344-4 #### [facility] CLIA [id number] [address] [place] [address] [place] Differential cell count method Nom (Bld) Auto Normal [facility] Comment on above: Order Comment: Speci men Type: VENOUS BLOOD SPECIMEN Ordering Facility: [facility] Address: [address] [place] [address] Performed By: #### 2 4344-4 #### [facility] CLIA [id number] [address] [place] [address] [place] Eosinophils (Bld) [#/Vol] 0.42 10*3/uL Normal <0.46 [facility] Comment on above: Order Comment: Speci men Type: VENOUS BLOOD SPECIMEN Ordering Facility: [facility] Address: [address] [place] [address] Performed By: #### 2 4344-4 #### [facility] CLIA [id number] [address] [place] [address] [place] Eosinophils/100 WBC (Bld) 2.8 % Normal [facility] Comment on above: Order Comment: Speci men Type: VENOUS BLOOD SPECIMEN Ordering Facility: [facility] Address: [address] [place] [address] Performed By: #### 2 4344-4 #### [facility] CLIA [id number] [address] [place] [address] [place] Erythrocyte distribution width (RBC) [Ratio] 14.0 % Normal 11.5-15.0 [facility] Comment on above: Order Comment: Speci men Type: VENOUS BLOOD SPECIMEN Ordering Facility: [facility] Address: [address] [place] [address] Performed By: #### 2 4344-4 #### [facility] CLIA [id number] [address] [place] [address] [place] Hematocrit (Bld) [Volume fraction] 37.2 % Low 39.0-51.0 [facility] Comment on above: Order Comment: Speci men Type: VENOUS BLOOD SPECIMEN Ordering Facility: [facility] Address: [address] [place] [address] Performed By: #### 2 4344-4 #### [facility] CLIA [id number] [address] [place] [address] [place] Hemoglobin (Bld) [Mass/Vol] 12.1 g/dL Low 13.0-17.0 [facility] Comment on above: Order Comment: Speci men Type: VENOUS BLOOD SPECIMEN Ordering Facility: [facility] Address: [address] [place] [address] Performed By: #### 2 4344-4 #### [facility] CLIA [id number] [address] [place] [address] [place] Immature granulocytes (Bld) [#/Vol] 0.10 10*3/uL High <0.10 [facility] Comment on above: Order Comment: Speci men Type: VENOUS BLOOD SPECIMEN Ordering Facility: [facility] Address: [address] [place] [address] Performed By: #### 2 4344-4 #### [facility] CLIA [id number] [address] [place] [address] [place] Immature granulocytes/100 WBC (Bld) 0.7 % Normal [facility] Comment on above: Order Comment: Speci men Type: VENOUS BLOOD SPECIMEN Ordering Facility: [facility] Address: [address] [place] [address] Performed By: #### 2 4344-4 #### [facility] CLIA [id number] [address] [place] [address] [place] Lymphocytes (Bld) [#/Vol] 2.14 10*3/uL Normal 1.00-4.00 [facility] Comment on above: Order Comment: Speci men Type: VENOUS BLOOD SPECIMEN Ordering Facility: [facility] Address: [address] [place] [address] Performed By: #### 2 4344-4 #### [facility] CLIA [id number] [address] [place] [address] [place] Lymphocytes/100 WBC (Bld) 14.3 % Normal [facility] Comment on above: Order Comment: Speci men Type: VENOUS BLOOD SPECIMEN Ordering Facility: [facility] Address: [address] [place] [address] Performed By: #### 2 4344-4 #### [facility] CLIA [id number] [address] [place] [address] MCH (RBC) [Entitic mass] 28.7 pg Normal 26.0-34.0 [facility] Comment on above: Order Comment: Speci men Type: VENOUS BLOOD SPECIMEN Ordering Facility: [facility] Address: [address] [place] [address] Performed By: #### 2 4344-4 #### [facility] CLIA [id number] [address] [place] [address] MCHC (RBC) [Mass/Vol] 32.5 g/dL Normal 30.5-36.0 [facility] Comment on above: Order Comment: Speci men Type: VENOUS BLOOD SPECIMEN Ordering Facility: [facility] Address: [address] [place] [address] Performed By: #### 2 4344-4 #### [facility] CLIA [id number] [address] [place] [address] MCV (RBC) [Entitic vol] 88.4 fL Normal 80.0-100.0 [facility] Comment on above: Order Comment: Speci men Type: VENOUS BLOOD SPECIMEN Ordering Facility: [facility] Address: [address] [place] [address] Performed By: #### 2 4344-4 #### [facility] CLIA [id number] [address] [place] [address] Monocytes (Bld) [#/Vol] 1.18 10*3/uL High <0.87 [facility] Comment on above: Order Comment: Speci men Type: VENOUS BLOOD SPECIMEN Ordering Facility: [facility] Address: [address] [place] [address] Performed By: #### 2 4344-4 #### [facility] CLIA [id number] [address] [place] [address] Monocytes/100 WBC (Bld) 7.9 % Normal [facility] Comment on above: Order Comment: Speci men Type: VENOUS BLOOD SPECIMEN Ordering Facility: [facility] Address: [address] [place] [address] Performed By: #### 2 4344-4 #### [facility] CLIA [id number] [address] [place] [address] [place] Neutrophils (Bld) [#/Vol] 11.01 10*3/uL High 1.45-7.50 [facility] Comment on above: Order Comment: Speci men Type: VENOUS BLOOD SPECIMEN Ordering Facility: [facility] Address: [address] [place] [address] Performed By: #### 2 4344-4 #### [facility] CLIA [id number] [address] [place] [address] [place] Neutrophils/100 WBC (Bld) 73.6 % Normal [facility] Comment on above: Order Comment: Speci men Type: VENOUS BLOOD SPECIMEN Ordering Facility: [facility] Address: [address] [place] [address] Performed By: #### 2 4344-4 #### [facility] CLIA [id number] [address] [place] [address] [place] Nucleated RBC (Bld) [#/Vol] 10*3/uL Normal <0.01 [facility] Comment on above: Order Comment: Speci men Type: VENOUS BLOOD SPECIMEN Ordering Facility: [facility] Address: [address] [place] [address] Performed By: #### 2 4344-4 #### [facility] CLIA [id number] [address] [place] [address] [place] Nucleated RBC/100 WBC (Bld) [Ratio] 0.0 /100 WBC Normal [facility] Comment on above: Order Comment: Speci men Type: VENOUS BLOOD SPECIMEN Ordering Facility: [facility] Address: [address] [place] [address] Performed By: #### 2 4344-4 #### [facility] CLIA [id number] [address] [place] [address] [place] Platelet mean volume (Bld) [Entitic vol] 9.8 fL Normal 9.0-12.7 [facility] Comment on above: Order Comment: Speci men Type: VENOUS BLOOD SPECIMEN Ordering Facility: [facility] Address: [address] [place] [address] Performed By: #### 2 4344-4 #### [facility] CLIA [id number] [address] [place] [address] [place] Platelets (Bld) [#/Vol] 454 10*3/uL High 150-400 [facility] Comment on above: Order Comment: Speci men Type: VENOUS BLOOD SPECIMEN Ordering Facility: [facility] Address: [address] [place] [address] Performed By: #### 2 4344-4 #### [facility] CLIA [id number] [address] [place] [address] [place] RBC (Bld) [#/Vol] 4.21 10*6/uL Normal 4.20-6.00 [facility] Comment on above: Order Comment: Speci men Type: VENOUS BLOOD SPECIMEN Ordering Facility: [facility] Address: [address] [place] [address] Performed By: #### 2 4344-4 #### [facility] CLIA [id number] [address] [place] [address] [place] WBC (Bld) [#/Vol] 14.96 10*3/uL High 3.70-11.00 [facility] Comment on above: Order Comment: Speci men Type: VENOUS BLOOD SPECIMEN Ordering Facility: [facility] Address: [address] [place] [address] Performed By: #### 2 4344-4 #### [facility] CLIA [id number] [address] [place] [address] [place] Hepatic function 2000 panelo n 07-20-2024 Albumin [Mass/Vol] 2.8 g/dL Low 3.2-5.0 [facility] Comment on above: Order Comment: Speci men Type: VENOUS BLOOD SPECIMEN Ordering Facility: [facility] Address: [address] [place] [address] Performed By: #### 2 4344-4 #### [facility] CLIA [id number] [address] [place] [address] [place] ALP [Catalytic activity/Vol] 100 U/L Normal 45-117 [facility] Comment on above: Order Comment: Speci men Type: VENOUS BLOOD SPECIMEN Ordering Facility: [facility] Address: [address] [place] [address] Performed By: #### 2 4344-4 #### [facility] CLIA [id number] [address] [place] [address] [place] ALT [Catalytic activity/Vol] 120 U/L High 13-61 [facility] Comment on above: Order Comment: Speci men Type: VENOUS BLOOD SPECIMEN Ordering Facility: [facility] Address: [address] [place] [address] Result Comment: Resu lts may be falsely depressed after the administration of Sulfasalazine and/or Sulfapyridine. Performed By: #### 2 4344-4 #### [facility] CLIA [id number] [address] [place] [address] [place] AST [Catalytic activity/Vol] 47 U/L High 8-34 [facility] Comment on above: Order Comment: Speci men Type: VENOUS BLOOD SPECIMEN Ordering Facility: [facility] Address: [address] [place] [address] Result Comment: Resu lts may be falsely depressed after the administration of Sulfasalazine and/or Sulfapyridine. Performed By: #### 2 4344-4 #### [facility] CLIA [id number] [address] [place] [address] [place] Bilirubin [Mass/Vol] 0.4 mg/dL Normal 0.2-1.0 [facility] Comment on above: Order Comment: Speci men Type: VENOUS BLOOD SPECIMEN Ordering Facility: [facility] Address: [address] [place] [address] Performed By: #### 2 4344-4 #### [facility] CLIA [id number] [address] [place] [address] Bilirubin.conjugated [Mass/Vol] 0.2 mg/dL Normal 0.0-0.4 [facility] Comment on above: Order Comment: Speci men Type: VENOUS BLOOD SPECIMEN Ordering Facility: [facility] Address: [address] [place] [address] Performed By: #### 2 4344-4 #### [facility] CLIA [id number] [address] [place] [address] [place] Protein [Mass/Vol] 6.2 g/dL Normal 6.0-8.5 [facility] Comment on above: Order Comment: Speci men Type: VENOUS BLOOD SPECIMEN Ordering Facility: [facility] Address: [address] [place] [address] Performed By: #### 2 4344-4 #### [facility] CLIA [id number] [address] [place] [address] [place] Bilirub Conj SerPl-mCncon Bilirubin.conjugated [Mass/Vol] 0.2 mg/dL Normal 0.0-0.4 [facility] Comment on above: Order Comment: Speci men Type: BLOOD SPECIMENOrdering Facility: [facility] Address: [address] [place] [address] Performed By: #### 1 5152-2, 26272-4, 36662-5 ####[facility]ORYCLIA [id number] [address] [place] CBC W Auto Differential pane l (Bld)on 07-19-2024 Basophils (Bld) [#/Vol] 0.09 10*3/uL Normal <0.11 [facility] Comment on above: Order Comment: Speci men Type: BLOOD SPECIMENOrdering Facility: [facility] Address: [address] [place] [address] Performed By: #### 5 7021-8 ####[facility]ORATORYCLIA [id number] [place] [address] [place] Basophils/100 WBC (Bld) 0.4 % Normal [facility] Comment on above: Order Comment: Speci men Type: BLOOD SPECIMENOrdering Facility: [facility] Address: [facility] [place] [address] Performed By: #### 5 7021-8 ####[facility] LABORATORYCLIA [id number] [place] [address] [place] Differential cell count method Nom (Bld) Auto Normal [facility] Comment on above: Order Comment: Speci men Type: BLOOD SPECIMENOrdering Facility: [facility] Address: [address] [place] [address] Performed By: #### 5 7021-8 ####[facility]ORATORYCLIA [id number] [place] [address] [place] Eosinophils (Bld) [#/Vol] 0.29 10*3/uL Normal <0.46 [facility] Comment on above: Order Comment: Speci men Type: BLOOD SPECIMENOrdering Facility: [facility] Address: [address] [place] [address] Performed By: #### 5 7021-8 ####[facility]ORATORYCLIA [id number] [address] OF [place] Eosinophils/100 WBC (Bld) 1.4 % Normal [facility] Comment on above: Order Comment: Speci men Type: BLOOD SPECIMENOrdering Facility: [facility] Address: [address] [place] [address] Performed By: #### 5 7021-8 ####[facility]ORATORYCLIA [id number] [address] [place] Erythrocyte distribution width (RBC) [Ratio] 13.7 % Normal 11.5-15.0 [facility] Comment on above: Order Comment: Speci men Type: BLOOD SPECIMENOrdering Facility: [facility] Address: [address] [place] [address] Performed By: #### 5 7021-8 ####[facility] LABORATORYCLIA [id number] [place] [address] [place] Hematocrit (Bld) [Volume fraction] 39.2 % Normal 39.0-51.0 [facility] Comment on above: Order Comment: Speci men Type: BLOOD SPECIMENOrdering Facility: [facility] Address: [address] [place] [address] Performed By: #### 5 7021-8 ####[facility]ATORYCLIA [id number] [place] [address] [place] Hemoglobin (Bld) [Mass/Vol] 12.9 g/dL Low 13.0-17.0 [facility] Comment on above: Order Comment: Speci men Type: BLOOD SPECIMENOrdering Facility: [facility] Address: [address] [place] [address] Performed By: #### 5 7021-8 ####[facility]ORATORYCLIA [id number] [place] [address] [place] Immature granulocytes (Bld) [#/Vol] 0.12 10*3/uL High <0.10 [facility] Comment on above: Order Comment: Speci men Type: BLOOD SPECIMENOrdering Facility: [facility] Address: [address] [place] [address] Performed By: #### 5 7021-8 ####[facility]ORATORYCLIA [id number] [place] [address] [place] Immature granulocytes/100 WBC (Bld) 0.6 % Normal [facility] Comment on above: Order Comment: Speci men Type: BLOOD SPECIMENOrdering Facility: [facility] Address: [address] [place] [address] Performed By: #### 5 7021-8 ####[facility] LABORATORYCLIA [id number] [place] [id number] [place] Lymphocytes (Bld) [#/Vol] 2.21 10*3/uL Normal 1.00-4.00 [facility] Comment on above: Order Comment: Speci men Type: BLOOD SPECIMENOrdering Facility: [facility] Address: [address] [place] [address] Performed By: #### 5 7021-8 ####[facility] LABORATORYCLIA [id number] [address] STATES [facility] Lymphocytes/100 WBC (Bld) 10.6 % Normal [facility] Comment on above: Order Comment: Speci men Type: BLOOD SPECIMENOrdering Facility: [facility] Address: [address] [place] [address] Performed By: #### 5 7021-8 ####[facility] LABORATORYCLIA [id number] [place] [address] [place] MCH (RBC) [Entitic mass] 28.8 pg Normal 26.0-34.0 [facility] Comment on above: Order Comment: Speci men Type: BLOOD SPECIMENOrdering Facility: [facility] Address: [address] [place] [address] Performed By: #### 5 7021-8 ####[facility]ORATORYCLIA [id number] [address] [place] MCHC (RBC) [Mass/Vol] 32.9 g/dL Normal 30.5-36.0 [facility] Comment on above: Order Comment: Speci men Type: BLOOD SPECIMENOrdering Facility: [facility] Address: [address] [place] [address] Performed By: #### 5 7021-8 ####[facility] LABORATORYCLIA [id number] [address] [place] MCV (RBC) [Entitic vol] 87.5 fL Normal 80.0-100.0 [facility] Comment on above: Order Comment: Speci men Type: BLOOD SPECIMENOrdering Facility: [facility] Address: [address] [place] [address] Performed By: #### 5 7021-8 ####[facility] LABORATORYCLIA [id number] [place] [address] [place] Monocytes (Bld) [#/Vol] 1.49 10*3/uL High <0.87 [facility] Comment on above: Order Comment: Speci men Type: BLOOD SPECIMENOrdering Facility: [facility] Address: [address] [place] [address] Performed By: #### 5 7021-8 ####[facility] LABORATORYCLIA [id number] [place] [id number] [place] Monocytes/100 WBC (Bld) 7.2 % Normal [facility] Comment on above: Order Comment: Speci men Type: BLOOD SPECIMENOrdering Facility: [facility] Address: [address] [place] [id number] Performed By: #### 5 7021-8 ####[facility] LABORATORYCLIA [id number] [place] [address] [place] Neutrophils (Bld) [#/Vol] 16.62 10*3/uL High 1.45-7.50 [facility] Comment on above: Order Comment: Speci men Type: BLOOD SPECIMENOrdering Facility: [facility] Address: [address] [place] [address] Performed By: #### 5 7021-8 ####[facility]ORATORYCLIA [id number] [place] [address] [place] Neutrophils/100 WBC (Bld) 79.8 % Normal [facility] Comment on above: Order Comment: Speci men Type: BLOOD SPECIMENOrdering Facility: [facility] Address: [address] [place] [address] Performed By: #### 5 7021-8 ####[facility]ORATORYCLIA [id number] [place] [address] [place] Nucleated RBC (Bld) [#/Vol] 10*3/uL Normal <0.01 [facility] Comment on above: Order Comment: Speci men Type: BLOOD SPECIMENOrdering Facility: [facility] Address: [address] [place] [address] Performed By: #### 5 7021-8 ####[facility]ORATORYCLIA [id number] [place] [id number] [place] Nucleated RBC/100 WBC (Bld) [Ratio] 0.0 /100 WBC Normal [facility] Comment on above: Order Comment: Speci men Type: BLOOD SPECIMENOrdering Facility: [facility] Address: [address] [place], [place] [address] Performed By: #### 5 7021-8 ####[facility] LABORATORYCLIA [id number] [place] [id number] [place] Platelet mean volume (Bld) [Entitic vol] 10.3 fL Normal 9.0-12.7 [facility] Comment on above: Order Comment: Speci men Type: BLOOD SPECIMENOrdering Facility: [facility] Address: [address] [place] [address] Performed By: #### 5 7021-8 ####[facility]ORATORYCLIA [id number] [place] [address] [place] Platelets (Bld) [#/Vol] 489 10*3/uL High 150-400 [facility] Comment on above: Order Comment: Speci men Type: BLOOD SPECIMENOrdering Facility: [facility] Address: [address] [place] [address] Performed By: #### 5 7021-8 ####[facility] LABORATORYCLIA [id number] [place] [id number] [place] RBC (Bld) [#/Vol] 4.48 10*6/uL Normal 4.20-6.00 [facility] Comment on above: Order Comment: Speci men Type: BLOOD SPECIMENOrdering Facility: [facility] Address: [address] [place] [address] Performed By: #### 5 7021-8 ####[facility] LABORATORYCLIA [id number] [place] [id number] [place] WBC (Bld) [#/Vol] 20.82 10*3/uL High 3.70-11.00 [facility] Comment on above: Order Comment: Speci men Type: BLOOD SPECIMENOrdering Facility: [facility] Address: [address] [place] [address] Performed By: #### 5 7021-8 ####[facility] LABORATORYCLIA [id number] [place] [id number] [place] [facility] Comprehensive metabolic 2000 panelon 07-19-2024 Albumin [Mass/Vol] 3.0 g/dL Low 3.2-5.0 [facility] Comment on above: Order Comment: Speci men Type: BLOOD SPECIMENOrdering Facility: [facility] Address: [address] [place] [address] Performed By: #### 1 5152-2, 28004-3, 93461-7 ####[facility]ORATORYCLIA [id number] [place] [id number] [place] ALP [Catalytic activity/Vol] 111 U/L Normal 45-117 [facility] Comment on above: Order Comment: Speci men Type: BLOOD SPECIMENOrdering Facility: [facility] Address: [address] [place] [address] Performed By: #### 1 5152-2, 88248-1, ####[facility]ORATORYCLIA [id number] [place] [address] [place] [facility] ALT [Catalytic activity/Vol] 157 U/L High 13-61 [facility] Comment on above: Order Comment: Speci men Type: BLOOD SPECIMENOrdering Facility: [facility] Address: [address] [place] [address] Result Comment: Resu lts may be falsely depressed after the administration of Sulfasalazine and/or Sulfapyridine. Performed By: #### 1 5152-2, 37650-9, 23968-7 ####[facility]ORATORYCLIA [id number] [place] [id number] [place] Anion gap [Moles/Vol] 11 mmol/L Normal 5-16 [facility] Comment on above: Order Comment: Speci men Type: BLOOD SPECIMENOrdering Facility: [facility] Address: [address] [place] [address] Performed By: #### 1 5152-2, 94268-0, ####[facility]ORATORYCLIA [id number] [place] [address] [place] AST [Catalytic activity/Vol] 55 U/L High 8-34 [facility] Comment on above: Order Comment: Speci men Type: BLOOD SPECIMENOrdering Facility: [facility] Address: [address] [place] [address] Result Comment: Resu lts may be falsely depressed after the administration of Sulfasalazine and/or Sulfapyridine. Performed By: #### 1 5152-2, 23323-1, ####[facility]ORATORYCLIA [id number] [place] [id number] [place] Bilirubin [Mass/Vol] 0.4 mg/dL Normal 0.2-1.0 [facility] Comment on above: Order Comment: Speci men Type: BLOOD SPECIMENOrdering Facility: [facility] Address: [address] [place] [address] Performed By: #### 1 5152-2, , ####[facility]ORATORYCLIA [id number] [place] [id number] [place] Calcium [Mass/Vol] 9.0 mg/dL Normal 8.5-10.5 [facility] Comment on above: Order Comment: Speci men Type: BLOOD SPECIMENOrdering Facility: [facility] Address: [address] [place] [address] Performed By: #### 1 5152-2, 85820-1, ####[facility] LABORATORYCLIA [id number] [place] [id number] [place] Chloride [Moles/Vol] 105 mmol/L Normal 98-107 [facility] Comment on above: Order Comment: Speci men Type: BLOOD SPECIMENOrdering Facility: [facility] Address: [address] [place], [place] [address] Performed By: #### 1 5152-2, 32928-5, ####[facility] LABORATORYCLIA [id number] [place] [address] [place] CO2 [Moles/Vol] 21 mmol/L Normal 21-32 [facility] Comment on above: Order Comment: Speci men Type: BLOOD SPECIMENOrdering Facility: [facility] Address: [address] [place] [address] Performed By: #### 1 5152-2, 73014-3, ####[facility] LABORATORYCLIA [id number] [address] Creatinine [Mass/Vol] 1.72 mg/dL High 0.50-1.40 [facility] Comment on above: Order Comment: Speci men Type: BLOOD SPECIMENOrdering Facility: [facility] Address: [address] [place] [address] Result Comment: Jeanette ents receiving either N-Acetylcysteine (NAC) or Metamizole prior to venipuncture, may have falsely depressed results. Performed By: #### 1 5152-2, 45662-2, ####[facility] LABORATORYCLIA [id number] [address] Creatinine and Glomerular filtration rate.predicted panel (S/P/Bld) 45 mL/min/1.73m??? Low >=60 [facility] Comment on above: Order Comment: Speci men Type: BLOOD SPECIMENOrdering Facility: [facility] Address: [address] [place] [address] Result Comment: Shruti mated Glomerular Filtration Rate (eGFR) is calculated using the 2020 CKD-EPI creatinine equation. This equation utilizes serum creatinine, sex, and age as parameters. The creatinine assay has traceable calibration to isotope dilution-mass spectrometry. Refer to KDIGO guidelines for clinical interpretation. In patients with unstable renal function, e.g. those with acute kidney injury, the eGFR may not accurately reflect actual GFR. Performed By: #### 1 5152-2, 38301-3, ####[facility] LABORATORYCLIA [id number] [place] [id number] [place] Glucose [Mass/Vol] 163 mg/dL High 70-100 [facility] Comment on above: Order Comment: Speci men Type: BLOOD SPECIMENOrdering Facility: [facility] Address: [address] [place] [address] Result Comment: The [place] Diabetes [employer] (ADA) provides guidance for cutoff values for fasting glucose and random glucose. The ADA defines fasting as no caloric intake for at least 8 hours. Fasting plasma glucose results between 100 to 125 mg/dL indicate increased risk for diabetes (prediabetes). Fasting plasma glucose results greater than or equal to 126 mg/dL meet the criteria for diagnosis of diabetes. In the absence of unequivocal hyperglycemia, results should be confirmed by repeat testing. In a patient with classic symptoms of hyperglycemia or hyperglycemic crisis, random plasma glucose results greater than or equal to 200 mg/dL meet the criteria for diagnosis of diabetes. Reference: Standards of Medical Care in Diabetes 2016, [place] [employer]. Diabetes Care. 2016.39(Suppl 1). Results may be falsely elevated after the administration of Sulfapyridine. Results may be falsely depressed after the administration of Sulfasalazine. Performed By: #### 1 5152-2, 95767-2, ####[facility] LABORATORYCLIA [id number] [place] [address] [place] Potassium [Moles/Vol] 4.0 mmol/L Normal 3.5-5.1 [facility] Comment on above: Order Comment: Speci men Type: BLOOD SPECIMENOrdering Facility: [facility] Address: [address] [place] [address] Performed By: #### 1 5152-2, 69539-4, ####[facility] LABORATORYCLIA [id number] [place] [address] [place] Protein [Mass/Vol] 6.6 g/dL Normal 6.0-8.5 [facility] Comment on above: Order Comment: Speci men Type: BLOOD SPECIMENOrdering Facility: [facility] Address: [address] [place] [address] Performed By: #### 1 5152-2, 94865-7, ####[facility] LABORATORYCLIA [id number] [place] [address] [place] Sodium [Moles/Vol] 137 mmol/L Normal 136-145 [facility] Comment on above: Order Comment: Speci men Type: BLOOD SPECIMENOrdering Facility: [facility] Address: [address] [place] [address] Performed By: #### 1 5152-2, 52141-5, ####[facility] LABORATORYCLIA [id number] [place] [id number] [place] Urea nitrogen [Mass/Vol] 19 mg/dL Normal 7-26 [facility] Comment on above: Order Comment: Speci men Type: BLOOD SPECIMENOrdering Facility: [facility] Address: [address] [place] [address] Performed By: #### 1 5152-2, 42169-3, ####[facility] LABORATORYCLIA [id number] [place] [address] [place] Magnesium SerPl-mCncon 07-19 Magnesium [Mass/Vol] 2.0 mg/dL Normal 1.6-2.6 [facility] Comment on above: Order Comment: Speci men Type: BLOOD SPECIMENOrdering Facility: [facility] Address: [address] [place] [address] Performed By: #### 1 5152-2, 06816-8, ####[facility] LABORATORYCLIA [id number] [place] [id number] [place] NURSING PROGon 07-19-2024 NURSING PROG HNO ID: [id number] Author: ROCCO ZAMBRANO, STEVEN Service: Nursing Author Type: Registered Nurse Type: Nursing Progress Note Filed: 07/19/2024 23:26 Note Text: Patient refusing IV fluids and demanding to be disconnected from IV pump. Binh Colindres APRN notified. Normal [facility] B-HYDROXYBUTYRATEon 07-19-19 25 Beta hydroxybutyrate [Moles/Vol] 0.16 mmol/L Normal 0.02-0.27 [facility] Comment on above: Order Comment: Speci men Type: BLOOD SPECIMEN Ordering Facility: [facility] Address: [address] [place] [address] Result Comment: Bloo d ketone levels will vary depending on several factors (for example, food intake, alcohol intake and conditions such as ketoacidosis). Patients should be fasting 12 hours prior to collection. Patient samples with high levels of M-Protein (i.e. Gammopathy) may affect the accuracy of this assay. Performed By: #### 2 4323-8, 09127-5, HSTROP, BHB #### [facility] [facility] CLIA [id number] [address] [place] [address] [place] Bacteria Bld Culton 07-19-19 25 Bacteria identified Cx Nom (Bld) ORGANISM ID: 1 Staphylococcus epidermidis Probable contaminant. Susceptibility testing will not be performed. Call lab within 72 hours to initiate workup if clinically indicated. GRAM STAIN: Gram positive cocci in clusters Abnormal [facility] Comment on above: Performed By: #### 2 4344-4 #### [facility] CLIA [id number] [address] [place] [address] [place] Bacteria identified Cx Nom (Bld) CULTURE, BLOOD: No growth 5 days Normal [facility] Comment on above: Performed By: #### 5 7021-8 #### [facility] CLIA [id number] [address] [place] [address] [place] CBC W Auto Differential pane l (Bld)on 2024 Basophils (Bld) [#/Vol] 0.05 10*3/uL Normal <0.11 [facility] Comment on above: Order Comment: Speci men Type: BLOOD SPECIMEN Ordering Facility: [facility] Address: [address] [place] [address] Performed By: #### 5 7021-8 #### [facility] CLIA [id number] [address] [place] [address] [place] Basophils/100 WBC (Bld) 0.3 % Normal [facility] Comment on above: Order Comment: Speci men Type: BLOOD SPECIMEN Ordering Facility: [facility] Address: [address] [place] [address] Performed By: #### 5 7021-8 #### [facility] CLIA [id number] [address] [place] [address] [place] Differential cell count method Nom (Bld) Auto Normal [facility] Comment on above: Order Comment: Speci men Type: BLOOD SPECIMEN Ordering Facility: [facility] Address: [address] [place] [address] Performed By: #### 5 7021-8 #### [facility] CLIA [id number] [address] [place] [address] [place] Eosinophils (Bld) [#/Vol] 10*3/uL Normal <0.46 [facility] Comment on above: Order Comment: Speci men Type: BLOOD SPECIMEN Ordering Facility: [facility] Address: [address] [place] [address] Performed By: #### 5 7021-8 #### [facility] CLIA [id number] [address] [place] [address] [place] Eosinophils/100 WBC (Bld) 0.1 % Normal [facility] Comment on above: Order Comment: Speci men Type: BLOOD SPECIMEN Ordering Facility: [facility] Address: [address] [place] [address] Performed By: #### 5 7021-8 #### [facility] CLIA [id number] [address] [place] [address] [place] Erythrocyte distribution width (RBC) [Ratio] 13.5 % Normal 11.5-15.0 [facility] Comment on above: Order Comment: Speci men Type: BLOOD SPECIMEN Ordering Facility: [facility] Address: [address] [place] [address] Performed By: #### 5 7021-8 #### [facility] CLIA [id number] [address] [place] [address] [place] Hematocrit (Bld) [Volume fraction] 38.7 % Low 39.0-51.0 [facility] Comment on above: Order Comment: Speci men Type: BLOOD SPECIMEN Ordering Facility: [facility] Address: [address] [place] [address] Performed By: #### 5 7021-8 #### [facility] CLIA [id number] [address] [place] [address] [place] Hemoglobin (Bld) [Mass/Vol] 12.9 g/dL Low 13.0-17.0 [facility] Comment on above: Order Comment: Speci men Type: BLOOD SPECIMEN Ordering Facility: [facility] Address: [address] [place] [address] Performed By: #### 5 7021-8 #### [facility] CLIA [id number] [address] [place] [address] [place] Immature granulocytes (Bld) [#/Vol] 0.14 10*3/uL High <0.10 [facility] Comment on above: Order Comment: Speci men Type: BLOOD SPECIMEN Ordering Facility: [facility] Address: [address] [place] [address] Performed By: #### 5 7021-8 #### [facility] CLIA [id number] [address] [place] [address] [place] Immature granulocytes/100 WBC (Bld) 0.7 % Normal [facility] Comment on above: Order Comment: Speci men Type: BLOOD SPECIMEN Ordering Facility: [facility] Address: [address] [place] [address] Performed By: #### 5 7021-8 #### [facility] CLIA [id number] [address] [place] [address] [place] Lymphocytes (Bld) [#/Vol] 0.85 10*3/uL Low 1.00-4.00 [facility] Comment on above: Order Comment: Speci men Type: BLOOD SPECIMEN Ordering Facility: [facility] Address: [address] [place] [address] Performed By: #### 5 7021-8 #### [facility] CLIA [id number] [address] [place] [address] [place] Lymphocytes/100 WBC (Bld) 4.3 % Normal [facility] Comment on above: Order Comment: Speci men Type: BLOOD SPECIMEN Ordering Facility: [facility] Address: [address] [place] [address] Performed By: #### 5 7021-8 #### [facility] CLIA [id number] [address] [place] [address] [place] MCH (RBC) [Entitic mass] 28.7 pg Normal 26.0-34.0 [facility] Comment on above: Order Comment: Speci men Type: BLOOD SPECIMEN Ordering Facility: [facility] Address: [address] [place] [address] Performed By: #### 5 7021-8 #### [facility] CLIA [id number] [address] [place] [address] [place] MCHC (RBC) [Mass/Vol] 33.3 g/dL Normal 30.5-36.0 [facility] Comment on above: Order Comment: Speci men Type: BLOOD SPECIMEN Ordering Facility: [facility] Address: [address] [place] [address] Performed By: #### 5 7021-8 #### [facility] CLIA [id number] [address] [place] [address] [place] MCV (RBC) [Entitic vol] 86.2 fL Normal 80.0-100.0 [facility] Comment on above: Order Comment: Speci men Type: BLOOD SPECIMEN Ordering Facility: [facility] Address: [address] [place] [address] Performed By: #### 5 7021-8 #### [facility] CLIA [id number] [address] [place] [address] [place] Monocytes (Bld) [#/Vol] 0.44 10*3/uL Normal <0.87 [facility] Comment on above: Order Comment: Speci men Type: BLOOD SPECIMEN Ordering Facility: [facility] Address: [address] [place] [address] Performed By: #### 5 7021-8 #### [facility] CLIA [id number] [address] [place] [address] [place] Monocytes/100 WBC (Bld) 2.2 % Normal [facility] Comment on above: Order Comment: Speci men Type: BLOOD SPECIMEN Ordering Facility: [facility] Address: [address] [place] [address] Performed By: #### 5 7021-8 #### [facility] CLIA [id number] [address] [place] [address] [place] Neutrophils (Bld) [#/Vol] 18.10 10*3/uL High 1.45-7.50 [facility] Comment on above: Order Comment: Speci men Type: BLOOD SPECIMEN Ordering Facility: [facility] Address: [address] [place] [address] Performed By: #### 5 7021-8 #### [facility] CLIA [id number] [address] [place] [address] [place] Neutrophils/100 WBC (Bld) 92.4 % Normal [facility] Comment on above: Order Comment: Speci men Type: BLOOD SPECIMEN Ordering Facility: [facility] Address: [address] [place] [address] Performed By: #### 5 7021-8 #### [facility] CLIA [id number] [address] [place] [address] [place] Nucleated RBC (Bld) [#/Vol] 10*3/uL Normal <0.01 [facility] Comment on above: Order Comment: Speci men Type: BLOOD SPECIMEN Ordering Facility: [facility] Address: [address] [place] [address] Performed By: #### 5 7021-8 #### [facility] CLIA [id number] [address] [place] [address] [place] Nucleated RBC/100 WBC (Bld) [Ratio] 0.0 /100 WBC Normal [facility] Comment on above: Order Comment: Speci men Type: BLOOD SPECIMEN Ordering Facility: [facility] Address: [address] [place] [address] Performed By: #### 5 7021-8 #### [facility] CLIA [id number] [address] [place] [address] [place] Platelet mean volume (Bld) [Entitic vol] 10.4 fL Normal 9.0-12.7 [facility] Comment on above: Order Comment: Speci men Type: BLOOD SPECIMEN Ordering Facility: [facility] Address: [address] [place], [place] [address] Performed By: #### 5 7021-8 #### [facility] CLIA [id number] [address] [place] [address] [place] Platelets (Bld) [#/Vol] 460 10*3/uL High 150-400 [facility] Comment on above: Order Comment: Speci men Type: BLOOD SPECIMEN Ordering Facility: [facility] Address: [address] [place] [address] Performed By: #### 5 7021-8 #### [facility] CLIA [id number] [address] [place] [address] [place] RBC (Bld) [#/Vol] 4.49 10*6/uL Normal 4.20-6.00 [facility] Comment on above: Order Comment: Speci men Type: BLOOD SPECIMEN Ordering Facility: [facility] Address: [address] [place] [address] Performed By: #### 5 7021-8 #### [facility] CLIA [id number] [address] [place] [address] [place] WBC (Bld) [#/Vol] 19.59 10*3/uL High 3.70-11.00 [facility] Comment on above: Order Comment: Speci men Type: BLOOD SPECIMEN Ordering Facility: [facility] Address: [address] [place] [address] Performed By: #### 5 7021-8 #### [facility] CLIA [id number] [address] [place], [place] [address] [facility] CONSULTon 2024 CONSULT HNO ID: [id number] Author: RAEANN SYKES MD Service: General Surgery Author Type: Physician Type: Consults Filed: 2024 19:09 Note Text: SURGICAL SERVICES CONSULT NOTE SERVICE DATE: 2024 SERVICE TIME: 1905 PRIMARY CARE PHYSICIAN: Ciro Schultz MD Consultation requested by Dr. combs for an opinion regarding inguinal hernia. My final recommendations will be communicated back to the requesting physician by way of shared Medical record or letter to requesting physician via US mail. Subjective CHIEF COMPLAINT: Abdominal pain versus left arm infection HPI: This is a 59 year old male who presents with what is possibly a wound infection from a skin lesion taken from his left arm a few days ago. Patient states that his had abdominal pain for 3 days. When I asked him about it he says he has no abdominal pain whatsoever and he needs food. Patient has multiple medical issues. CT scan of the abdomen pelvis was obtained for the abdominal pain and shows the following IMPRESSION: There is a short segment of small bowel that extends into the right inguinal hernia. There is no obstruction. Lucent lesion within the right-sided T12 vertebral body differential considerations multiple myeloma, lytic metastatic disease, benign etiologies. A nonemergent MRI of the lumbar spine to include T12 is recommended for further evaluation. 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 He is passing gas and having bowel movements. Patient denies he has a hernia" does not know who told you that." FUNCTIONAL STATUS: Partially dependent No past medical history on file. No past surgical history on file. No family history on file. Social History Tobacco Use Smoking status: Former Current packs/day: 0.00 Types: Cigarettes Quit date: 2021 Years since quittin.2 Smokeless tobacco: Never Vaping Use Vaping status: Never Used Substance Use Topics Alcohol use: Not Currently Comment: History of abuse cloNIDine TTS (CATAPRES-TTS) 0.3 mg/24 hr, Apply 1 Patch as directed one time a week. Change on Tuesdays, Disp: , Rfl: , 07/15/2024 cephALEXin (KEFLEX) 500 mg capsule, Take 500 mg by mouth four times daily., Disp: , Rfl: , 07/17/2024 cloNIDine HCl (CATAPRES) 0.1 mg tablet, Take 0.1 mg by mouth every 12 hours as needed (SBP >150)., Disp: , Rfl: , Taking As Needed docusate sodium (COLACE) 100 mg capsule, Take 100 mg by mouth two times a day., Disp: , Rfl: , Taking bisacodyl (DULCOLAX) 10 mg supp, 10 mg by RECTAL route once daily as needed for constipation., Disp: , Rfl: , Taking As Needed dapagliflozin propanediol (FARXIGA) 10 mg tablet, Take 10 mg by mouth daily with breakfast., Disp: , Rfl: , Taking aluminum-magnesium hydroxide-simethicone (MAALOX ADVANCED) 200-200-20 mg/5 mL suspension, Take 15 mL by mouth every 4 hours as needed (indigestion)., Disp: , Rfl: , Taking As Needed glucagon (GLUCAGEN) 1 mg/mL injection, Inject 1 mg intramuscularly as needed (hypoglycemia)., Disp: , Rfl: , Taking As Needed hydrALAZINE (APRESOLINE) 10 mg tablet, Take 10 mg by mouth three times a day., Disp: , Rfl: , Taking loperamide HCl (IMODIUM) 2 mg tab, Take 2 mg by mouth as needed (loose stool)., Disp: , Rfl: , Taking As Needed ketoconazole (NIZORAL) 2 % shampoo, Apply 1 Application to affected area once daily. APPLY TO SCALP AND EARS, Disp: , Rfl: , Taking semaglutide (OZEMPIC) 0.25 mg or 0.5 mg (2 mg/3 mL) pen, Inject 0.5 mg subcutaneously one time a week. Take on , Disp: , Rfl: , Taking guaiFENesin-dextromethorpha n (ROBITUSSIN DM) 100-10 mg/5 mL syrup, Take 5 mL by mouth every 4 hours as needed for cough., Disp: , Rfl: , Taking As Needed sodium chloride 0.65 % nasal spray, Use 1 [place] in the nose every 6 hours as needed for cold/allergy symptoms., Disp: , Rfl: , Taking As Needed traMADol (ULTRAM) 50 mg tablet, Take 50 mg by mouth every 8 hours as needed for pain., Disp: , Rfl: , Taking As Needed cholecalciferol (VITAMIN D) 1,000 unit tab tablet, Take 1,000 Units by mouth once daily., Disp: , Rfl: , Taking ondansetron (ZOFRAN) 4 mg tablet, Take 4 mg by mouth every 6 hours as needed for nausea/vomiting., Disp: , Rfl: , Taking As Needed insulin lispro (HUMALOG U-100 INSULIN) 100 unit/mL injection, Inject 8 units subcutaneously 3 times daily before meals. (Patient taking differently: Inject 2-10 Units subcutaneously three times a day before meals. Sliding scale insulin Blood glucose 151-200 2 units sc Blood glucose 201-250 4 units sc Blood glucose 251-300 6 units sc Blood glucose 301-350 8 units sc Blood glucose 351-400 10 units sc), Disp: 10 mL, Rfl: 1, Taking Differently insulin glargine,hum.rec.anlog (LANTUS SOLOSTAR U-100 INSULIN SUBCUTANEOUS), Inject 14 Units subcutaneously two times a day., Disp: , Rfl: , Taking acetaminophen (TYLENOL) 325 mg tablet, Take 650 mg by mouth every 4 hours as needed for pain., Disp: , Rfl: , T (more content not included)... Normal [facility] CT ABD/PEL W IVCONon 07-18-[address] ABD/PEL W IVCON * * *Final Report* * * DATE OF EXAM: 2024 1:47PM [facility] 0530 - CT ABD/PEL W IVCON / PROCEDURE REASON: Abdominal pain * * * * Physician Interpretation * * * * EXAMINATION: CT ABDOMEN AND PELVIS WITH IV CONTRAST CLINICAL HISTORY: Generalized abdominal pain TECHNIQUE: CT of the abdomen and pelvis was performed using standard technique, scanning from just above the dome of the diaphragm to the symphysis pubis. MQ: CTAP_3 Contrast: IV: 100 ml of Omnipaque 350 : ml of CT Radiation dose: Integrated Dose-length product (DLP) for this visit = 954.59 mGy*cm. CT Dose Reduction Employed: Automated exposure control(AEC) and iterative recon COMPARISON: None. RESULT: Liver: No mass. Biliary: No bile duct dilation. Gallbladder is unremarkable. Spleen: No mass. No splenomegaly. Numerous granulomatous calcifications are seen within the spleen. Pancreas: No mass or duct dilation. Adrenals: No mass. Kidneys: No hydronephrosis stones or enhancing renal mass there are bilateral renal cysts. The ureters are unremarkable GI tract: The stomach is distended. Small bowel is normal in caliber. There is a short segment of small bowel extends into the right inguinal hernia. There is no obstruction The terminal ileum and cecum are unremarkable. The appendix is normal no colonic mass no diverticulitis. Lymph nodes: No abdominal or pelvic lymphadenopathy. Mesentery/Peritoneum: No ascites or mass. Retroperitoneum: No mass. Vasculature: No aneurysm or dissection no venous or arterial occlusion in the upper abdomen Pelvis: Coarse calcifications are seen within the prostate gland. The prostate gland is otherwise unremarkable. The rectum seminal vesicles and bladder are within normal limits. Bones/Soft Tissues: No suspicious lytic or sclerotic osseous lesions there is a lucent lesion involving the right side of T12 vertebral body with extension to the base of the right pedicle. There is avascular necrosis in the left femoral head and possibly the right femoral head Lower thorax: Lung bases are clear. The lower heart chambers and posterior mediastinal structures are within normal limits Localizer images: No additional findings. IMPRESSION: There is a short segment of small bowel that extends into the right inguinal hernia. There is no obstruction. Lucent lesion within the right-sided T12 vertebral body differential considerations multiple myeloma, lytic metastatic disease, benign etiologies. A nonemergent MRI of the lumbar spine to include T12 is recommended for further evaluation. 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 ACTIONABLE RESULT: FOLLOW-UP Acuity: Actionable Findings: Musculoskeletal/Rheumatolog ic System Routing Code: MSK_1 Recommendation: MRI LUMBAR SPINE WO/W IVCON Time Frame: Additional evaluation as described in the impression COMMUNICATION: Results will be communicated with the ordering provider via [employer] staff message or phone message by [facility] within 2 business days of report finalization. --END OF FINDING-- Staffing Program Manager: LAUREANO Transcribe Date/Time: 2024 2:39P Dictated by : LUIZ LE MD This examination was interpreted and the report reviewed and electronically signed by: LUIZ LE MD on 2024 2:52PM EST [id number] ACTIONABLE Invalid Interpretation Code [facility] Comprehensive metabolic 2000 panelon 2024 Albumin [Mass/Vol] 3.4 g/dL Normal 3.2-5.0 [facility] Comment on above: Order Comment: Speci men Type: BLOOD SPECIMEN Ordering Facility: [facility] Address: [address] [place] [address] Performed By: #### 2 4323-8, , MARISA RUBALCAVA #### [facility] CLIA [id number] [address] [place] [address] [place] ALP [Catalytic activity/Vol] 127 U/L High 45-117 [facility] Comment on above: Order Comment: Speci men Type: BLOOD SPECIMEN Ordering Facility: [facility] Address: [address] [place] [address] Performed By: #### 2 4323-8, , MARISA RUBALCAVA #### [facility] CLIA [id number] [address] [place] [address] [place] ALT [Catalytic activity/Vol] 213 U/L High 13-61 [facility] Comment on above: Order Comment: Speci men Type: BLOOD SPECIMEN Ordering Facility: [facility] Address: [address] [place] [address] Result Comment: Resu lts may be falsely depressed after the administration of Sulfasalazine and/or Sulfapyridine. Performed By: #### 2 4323-8, , MARISA RUBALCAVA #### [facility] CLIA [id number] [address] [place] [address] [place] Anion gap [Moles/Vol] 10 mmol/L Normal 5-16 [facility] Comment on above: Order Comment: Speci men Type: BLOOD SPECIMEN Ordering Facility: [facility] Address: [address] [place], [place] [id number] Performed By: #### 2 4323-8, , HSMARISA LEON #### [facility] CLIA [id number] [address] [place], [place] [address] [place] AST [Catalytic activity/Vol] 70 U/L High 8-34 [facility] Comment on above: Order Comment: Speci men Type: BLOOD SPECIMEN Ordering Facility: [facility] Address: [address] [place] [address] Result Comment: Resu lts may be falsely depressed after the administration of Sulfasalazine and/or Sulfapyridine. Performed By: #### 2 4323-8, , HSCAROLYN, B #### [facility] CLIA [id number] [address] [place] [address] [place] Bilirubin [Mass/Vol] 0.5 mg/dL Normal 0.2-1.0 [facility] Comment on above: Order Comment: Speci men Type: BLOOD SPECIMEN Ordering Facility: [facility] Address: [address] [place] [address] Performed By: #### 2 4323-8, , HSCAROLYN, B #### [facility] CLIA [id number] [address] [place] [address] [place] Calcium [Mass/Vol] 9.3 mg/dL Normal 8.5-10.5 [facility] Comment on above: Order Comment: Speci men Type: BLOOD SPECIMEN Ordering Facility: [facility] Address: [address] [place] [address] Performed By: #### 2 4323-8, , HSCAROLYN, B #### [facility] CLIA [id number] [address] [place] [address] [place] Chloride [Moles/Vol] 97 mmol/L Low 98-107 [facility] Comment on above: Order Comment: Speci men Type: BLOOD SPECIMEN Ordering Facility: [facility] Address: [address] [place], [place] [id number] Performed By: #### 2 4323-8, , HSCAROLYN, B #### [facility] CLIA [id number] [address] [place], [place] [address] [place] CO2 [Moles/Vol] 23 mmol/L Normal 21-32 [facility] Comment on above: Order Comment: Speci men Type: BLOOD SPECIMEN Ordering Facility: [facility] Address: [address] [place] [address] Performed By: #### 2 4323-8, 47544-4, MARISA RUBALCAVA #### [facility] CLIA [id number] [address] [place], [place] [address] [place] Creatinine [Mass/Vol] 1.65 mg/dL High 0.50-1.40 [facility] Comment on above: Order Comment: Speci men Type: BLOOD SPECIMEN Ordering Facility: [facility] Address: [address] [place] [address] Result Comment: Jeanette ents receiving either N-Acetylcysteine (NAC) or Metamizole prior to venipuncture, may have falsely depressed results. Performed By: #### 2 4323-8, 12161-0, MARISA RUBALCAVA #### [facility] CLIA [id number] [address] [place] [address] [place] Creatinine and Glomerular filtration rate.predicted panel (S/P/Bld) 47 mL/min/1.73m??? Low >=60 [facility] Comment on above: Order Comment: Speci men Type: BLOOD SPECIMEN Ordering Facility: [facility] Address: [address] [place] [address] Result Comment: Shruti mated Glomerular Filtration Rate (eGFR) is calculated using the 2020 CKD-EPI creatinine equation. This equation utilizes serum creatinine, sex, and age as parameters. The creatinine assay has traceable calibration to isotope dilution-mass spectrometry. Refer to KDIGO guidelines for clinical interpretation. In patients with unstable renal function, e.g. those with acute kidney injury, the eGFR may not accurately reflect actual GFR. Performed By: #### 2 4323-8, 75508-9, MARISA RUBALCAVA #### [facility] CLIA [id number] [address] [place], [place] [address] [place] Glucose [Mass/Vol] 352 mg/dL High 70-100 [facility] Comment on above: Order Comment: Speci men Type: BLOOD SPECIMEN Ordering Facility: [facility] Address: [address] [id number] Result Comment: The [place] Diabetes Association (ADA) provides guidance for cutoff values for fasting glucose and random glucose. The ADA defines fasting as no caloric intake for at least 8 hours. Fasting plasma glucose results between 100 to 125 mg/dL indicate increased risk for diabetes (prediabetes). Fasting plasma glucose results greater than or equal to 126 mg/dL meet the criteria for diagnosis of diabetes. In the absence of unequivocal hyperglycemia, results should be confirmed by repeat testing. In a patient with classic symptoms of hyperglycemia or hyperglycemic crisis, random plasma glucose results greater than or equal to 200 mg/dL meet the criteria for diagnosis of diabetes. Reference: Standards of Medical Care in Diabetes 2016, [place] Diabetes Association. Diabetes Care. 2016.39(Suppl 1). Results may be falsely elevated after the administration of Sulfapyridine. Results may be falsely depressed after the administration of Sulfasalazine. Performed By: #### 2 4323-8, 28354-2, MARISA RUBALCAVA #### [facility] CLIA [id number] [address] [place] [address] [place] Potassium [Moles/Vol] 4.1 mmol/L Normal 3.5-5.1 [facility] Comment on above: Order Comment: Speci men Type: BLOOD SPECIMEN Ordering Facility: [facility] Address: [address] [place] [address] Performed By: #### 2 4323-8, 08436-8, MARISA RUBALCAVA #### [facility] CLIA [id number] [address] [place] [address] [place] Protein [Mass/Vol] 7.6 g/dL Normal 6.0-8.5 [facility] Comment on above: Order Comment: Speci men Type: BLOOD SPECIMEN Ordering Facility: [facility] Address: [address] [place] [address] Performed By: #### 2 4323-8, , MARISA RUBALCAVA #### [facility] CLIA [id number] [address] [place] [address] [place] Sodium [Moles/Vol] 130 mmol/L Low 136-145 [facility] Comment on above: Order Comment: Speci men Type: BLOOD SPECIMEN Ordering Facility: [facility] Address: [address] [place] [address] Performed By: #### 2 4323-8, 32640-8, MARISA RUBALCAVA #### [facility] CLIA [id number] [address] [place], [place] [address] [place] Urea nitrogen [Mass/Vol] 21 mg/dL Normal - [facility] Comment on above: Order Comment: Speci men Type: BLOOD SPECIMEN Ordering Facility: [facility] Address: [address] [place] [address] Performed By: #### 2 4323-8, 55980-3, MARISA RUBALCAVA #### [facility] CLIA [id number] [address] [place], [place] [address] [facility] [place] ECG COMPLETEon 2024 ECG COMPLETE Ventricular Rate : 8 5 BPM Atrial Rate : 85 BPM P-R Interval : 202 ms QRS Duration : 88 ms Q-T Interval : 374 ms QTC Calculation(Bazett) : 445 ms Calculated P [place] : 61 degrees Calculated R [place] : -24 degrees Calculated T [place] : 70 degrees Normal sinus rhythm Possible Anterior infarct , age undetermined Abnormal ECG When compared with ECG of 03-Jun-2022 10:58, Questionable change in QRS axis Confirmed by GOLDEN ESPINOSA MD ([id number]) on 07/20/2024 11:53:25 PM NAME : CIRO HAWKINS PID : [id number] : 1965 Gender : Male Race : ORD : [id number] Procedure Date : 2024 09:51:07 Edit Date : Jul 20 2024 23:53:25 Diagnosis: Normal sinus rhythm Possible Anterior infarct , age undetermined Abnormal ECG When compared with ECG of 03-Jun-2022 10:58, Questionable change in QRS axis Confirmed by GOLDEN ESPINOSA MD ([id number]) on 07/20/2024 11:53:25 PM Test Reason : HCS Location : 0 : ED EDFTE Overread By : GOLDEN ESPINOSA MD Edited By : GOLDEN ESPINOSA MD Referred By : , Acquired by : [id number], Normal [facility] ED NOTEon 2024 ED NOTE HNO ID: [id number] Author: DORIS ALVARADO CT Service: ? Author Type: Clinical Customer Relations Coordinator Type: ED Notes Filed: 2024 15:45 Note Text: Pt refused a gown. RN notified. [facility] ED NOTE HNO ID: [id number] Author: SHARAD HUA, STEVEN Service: ? Author Type: Registered Nurse Type: ED Notes Filed: 2024 13:12 Note Text: Bed: 30-ED Expected date: Expected time: Means of arrival: Comments: [facility] ED NOTE HNO ID: [id number] Author: ALECIA FONTENOT, STEVEN Service: ? Author Type: Registered Nurse Type: ED Notes Filed: 2024 09:25 Note Text: C/o weakness and nausea. Pt's blood sugar is in 500's per squad. Pt had skin cancer removed left upper arm last week and it is red and swollen. [facility] ED PROV NOTEon 2024 ED PROV NOTE HNO ID: [id number] Author: INES HAYWARD MD Service: ? Author Type: Physician Type: ED Provider Notes Filed: 2024 22:51 Note Text: ED Provider Note Patient Name: Ciro Hawkins : 1965 SERVICE DATE: 07/18/24 Attending Note Attestation for: RING MAKING MACHINE OPERATOR/PA I have personally performed a face to face assessment of the patient and have reviewed the CAROL note. I personally made/approved the management plan and take responsibility for the patient management. I performed a substantive portion of the visit including all aspects of the following. HISTORY Ciro Hawkins is a 59 year old male with PMH per EMR including tobacco use, presents concern for wound check. Patient reports he had a lesion removed from his left upper arm 1 week ago, he reports over the last several days increasing pain and redness associated with wound, he endorses generalized abdominal discomfort although at this time states he simply feels hungry, denies nausea vomiting, fever chills, cough, chest pain, shortness of breath, numbness or weakness including throughout the left arm. PHYSICAL EXAM Vitals [07/18/24 0925] BP Pulse Temp Temp src Resp SpO2 Weight Height (!) 213/104 83 36.3 ?C (97.4 ?F) Oral 18 99 % 104.3 kg (230 lb) 1.753 m (5' 9") General: no apparent distress, well appearing Cardiovascular: regular rhythm, normal rate, left radial pulse palpable Respiratory: non-labored breathing, breath sounds clear, no wheezing crackles or rhonchi Gastrointestinal: soft, non-distended, non-tender to palpation throughout, no rigidity Extremities: Approximated incision with sutures in place left upper arm with surrounding erythema warmth induration no fluctuance no active drainage, mild tenderness, compartment soft and compressible Integumentary: warm, dry Neurologic: Alert and oriented, nonslurred speech, answering questions appropriate, left hand bag worker strength full, sensation intact left hand MEDICAL DECISION MAKING Medications iv contrast (radiology procedure) (has no administration in time range) NaCl 0.9% iv flush bag (has no administration in time range) morphine 2 mg injection (has no administration in time range) oxyCODONE IR 5 mg tab(s) (ROXICODONE) (has no administration in time range) acetaminophen 650 mg tab(s) (TYLENOL) (has no administration in time range) NaCl 0.9% iv infusion (has no administration in time range) atorvastatin 20 mg tab(s) (LIPITOR) (has no administration in time range) cloNIDine HCl 0.1 mg tab(s) (CATAPRES) (has no administration in time range) hydrALAZINE 10 mg tab(s) (APRESOLINE) (has no administration in time range) insulin glargine 14 Units pen (long acting) (has no administration in time range) aluminum-magnesium hydroxide-simethicone 200-200-20 mg/5 mL 15 mL (has no administration in time range) bisacodyl 10 mg suppository (DULCOLAX) (has no administration in time range) docusate sodium 100 mg cap(s) (COLACE) (has no administration in time range) loperamide 2 mg cap(s) (IMODIUM) (has no administration in time range) sodium chloride 0.65 % 1 [place] (has no administration in time range) cholecalciferol 1,000 Units tab(s) (VITAMIN D3) (has no administration in time range) heparin 5,000 Units injection (has no administration in time range) iv contrast (radiology procedure) (has no administration in time range) ondansetron (PF) 4 mg injection (ZOFRAN) (has no administration in time range) cefTRIAXone 1 g in D5W 100 mL Vial-Bag (ROCEPHIN) (has no administration in time range) cloNIDine TTS 0.3 mg/24 hr 1 Patch (CATAPRES-TTS) (has no administration in time range) hydrALAZINE 10 mg injection (APRESOLINE) (has no administration in time range) dextrose 40 % 15 g (has no administration in time range) Or glucagon 1 mg injection (has no administration in time range) Or dextrose 10% iv bolus (has no administration in time range) insulin lispro injection (rapid acting) (ADMElog) ( SUBCUTANEOUS Not Given 07/18/24 1900) NaCl 0.9% 1,000 mL iv bolus (0 mL INTRAVENOUS Infusion Complete 07/18/24 1216) ondansetron (PF) 4 mg injection (ZOFRAN) (4 mg INTRAVENOUS Given 07/18/24 1249) ondansetron (PF) 4 mg injection (ZOFRAN) (4 mg INTRAVENOUS Given 07/18/24 1423) morphine 4 mg injection (4 mg INTRAVENOUS Given 07/18/24 1423) cefTRIAXone 1 g in D5W 100 mL Vial-Bag (ROCEPHIN) (0 g INTRAVENOUS Infusion Complete 07/18/24 1649) vancomycin iv piggyback 1.5 g in D5W 300 mL (VANCOCIN) (0 g INTRAVENOUS Infusion Complete 07/18/24 1815) Ciro Hawkins is a 59 year old male who presents as above, concern for wound infection involving the left upper arm, patient endorsed abdominal discomfort, on my evaluation simply states he feels hungry, his abdominal exam is benign, he is afebrile, hypertensive - suspect component related to discomfort, tachypneic, otherwise reassuring vitals, neurovascular intact left upper extremity, concern for cellulitis associated wi (more content not included)... [facility] ED PROV NOTE HNO ID: [id number] Author: MIRNA CALIXTO PA-C Service: ? Author Type: Physician Auto Salvage Worker Type: ED Provider Notes Filed: 2024 15:42 Note Text: ED Provider Note Patient Name: Ciro Hawkins : 1965 SERVICE DATE: 07/18/24 History Patient presents with: Weakness Nausea Patient has abdominal pain nausea, no vomiting, no diarrhea as of yet. Abdomen is been bothering him now for the past 3 days. Denies any fevers though he does describe chills. No cough no congestion. Did have a recent skin lesion removal in his left arm. Slightly erythematous around the wound edge. 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 No past medical history on file. No past surgical history on file. No family history on file. Social History Tobacco Use - Smoking status: Former Current packs/day: 0.00 Types: Cigarettes Quit date: 2021 Years since quittin.2 - Smokeless tobacco: Never Vaping Use - Vaping status: Never Used Substance and Sexual Activity - Alcohol use: Not Currently Comment: History of abuse - Drug use: Not on file Comment: History of substance abuse. Rare marijuana now - Sexual activity: Not on file ALLERGIES No Known Allergies Review of Systems Constitutional: Positive for chills and fatigue. HENT: Negative. Eyes: Negative. Respiratory: Negative for shortness of breath. Cardiovascular: Negative. Gastrointestinal: Positive for abdominal pain and nausea. Negative for diarrhea and vomiting. Endocrine: Negative. Genitourinary: Negative. Musculoskeletal: Negative. Skin: Negative. Allergic/Immunologic: Negative. Neurological: Negative. Hematological: Negative. Psychiatric/Behavioral: Negative. All other systems reviewed and are negative. Physical Exam Vitals [07/18/24 0925] BP Pulse Temp Temp src Resp SpO2 Weight Height (!) 213/104 83 36.3 ?C (97.4 ?F) Oral 18 99 % 104.3 kg (230 lb) 1.753 m (5' 9") Physical Exam Vitals and nursing note reviewed. Constitutional: Appearance: Normal appearance. He is obese. HENT: Head: Normocephalic and atraumatic. Right Ear: Tympanic membrane normal. Left Ear: Tympanic membrane normal. Nose: Nose normal. Mouth/Throat: Mouth: Mucous membranes are dry. Eyes: Extraocular Movements: Extraocular movements intact. Conjunctiva/sclera: Conjunctivae normal. Pupils: Pupils are equal, round, and reactive to light. Cardiovascular: Rate and Rhythm: Normal rate and regular rhythm. Pulses: Normal pulses. Heart sounds: Normal heart sounds. Pulmonary: Effort: Pulmonary effort is normal. Breath sounds: Normal breath sounds. Abdominal: General: Abdomen is flat. Bowel sounds are normal. Palpations: Abdomen is soft. Comments: Despite subjective complaint there is no focal tenderness on exam to his abdomen, describes it as being more diffuse Musculoskeletal: General: Normal range of motion. Cervical back: Normal range of motion. Lymphadenopathy: Cervical: No cervical adenopathy. Skin: General: Skin is warm and dry. Capillary Refill: Capillary refill takes less than 2 seconds. Neurological: General: No focal deficit present. Mental Status: He is alert and oriented to person, place, and time. Psychiatric: Mood and Affect: Mood normal. Behavior: Behavior normal. Diagnostic Testing ED Labs Ordered and Reviewed COMPREHENSIVE METABOLIC PANEL - Abnormal; Notable for the following components: Result Value Ref Range Alkaline Phosphatase 127 (*) 45 - 117 U/L AST 70 (*) 8 - 34 U/L ALT 213 (*) 13 - 61 U/L Glucose 352 (*) 70 - 100 mg/dL Creatinine 1.65 (*) 0.50 - 1.40 mg/dL Sodium 130 (*) 136 - 145 mmol/L Chloride 97 (*) 98 - 107 mmol/L Estimated Glomerular Filtration Rate 47 (*) >=60 mL/min/1.73m? All other components within normal limits COMPLETE BLOOD COUNT AND DIFFERENTIAL - Abnormal; Notable for the following components: WBC 19.59 (*) 3.70 - 11.00 k/uL Hemoglobin 12.9 (*) 13.0 - 17.0 g/dL Hematocrit 38.7 (*) 39.0 - 51.0 % Platelet Count 460 (*) 150 - 400 k/uL Abs Neut 18.10 (*) 1.45 - 7.50 k/uL Abs Lymph 0.85 (*) 1.00 - 4.00 k/uL Abs Immature Gran 0.14 (*) <0.10 k/uL All other components within normal limits URINALYSIS (WITH MICROSCOPIC) WITH CULTURE IF INDICATED - Abnormal; Notable for the following components: Glucose, Urine 3+ (*) Negative Protein, Urine 3+ (*) Negative Bacteria Rare (*) None Seen /HPF All other components within normal limits VENOUS BLOOD GASES - Abnormal; Notable for the following components: pCO2, Venous 38 (*) 42 - 55 mmHg pO2, Venous 33 (*) 35 - 45 mmHg Sodium, Whole Blood 132 (*) 136 - 144 mmol/L Glucose, Whole Blood 397 (*) 60 - 105 mg/dL All other components within normal limits MAGNESIUM - Normal HIGH SENSITIVITY TROPONIN I - Normal SEPSIS LACTATE - Normal B-HYDROXYBUTYRATE - Normal COVID AND INFLUENZA A/B AND RSV PCR, EXPEDITED - Ly (more content not included)... [facility] ED Triage Noteon 2024 ED Triage Note HNO ID: [id number] Author: LUIZ KIM PA-C Service: ? Author Type: Physician Auto Salvage Worker Type: ED Triage Notes Filed: 2024 09:35 Note Text: ED TRIAGE PROVIDER NOTE Patient Name: Ciro Hawkins Service Date: 07/18/24 BRIEF HPI: This is a 59 year old male with history of diabetes on insulin, skin cancer who presents to the ED with: Generalized malaise and redness around left upper extremity surgical site. Last Sunday, patient had an area of skin cancer removed on the left arm. Sutures are in place and now it appears to be infected. Believes he is currently on antibiotics and cannot recall the name (appears to be Keflex dispensed on 07/16). Denies specific areas of pain. Otherwise denies chest pain, shortness of breath, abdominal pain, urinary symptoms, bowel changes, trauma/injury. Per squad, patient's glucose was in the 500s. BRIEF EXAM: NAD, fatigued appearing Awake and Alert Non labored breathing No focal neurological deficits Evaluation of left lower extremity reveals a lateral surgical wound with sutures present, surrounding erythema INITIAL WORKUP AND DECISION MAKING: Orders Placed This Encounter XR CHEST 1V FRONTAL PORT COMPREHENSIVE METABOLIC PANEL (BMP+LFT) MAGNESIUM BLOOD SINGLE HIGH SENSITIVITY TROPONIN I Single Sepsis Lactate CBC + AUTO DIFF Urinalysis w Microscopic, reflex Culture VBG KETONES SERUM COVID AND Influenza A/B AND RSV PCR, Expedited NaCl 0.9% 1,000 mL iv bolus ECG COMPLETE SIGNATURE: Luiz Kim PA-C [facility] Gas and Carbon monoxide pane l (BldV)on 2024 BASE DEFICIT, VENOUS -1 mmol/L Normal -2-0 [facility] Comment on above: Order Comment: Speci men Type: VENOUS BLOOD SPECIMEN Ordering Facility: [facility] Address: [address] [place] [address] Performed By: #### 2 4344-4 #### [facility] CLIA [id number] [address] [place] [address] [place] Body temperature 97.34 [degF] Normal [facility] Comment on above: Order Comment: Speci men Type: VENOUS BLOOD SPECIMEN Ordering Facility: [facility] Address: [address] [place] [address] Performed By: #### 2 4344-4 #### [facility] CLIA [id number] [address] [place] [address] [place] Calcium.ionized (Bld) [Mass/Vol] 1.10 mmol/L Normal 1.08-1.30 [facility] Comment on above: Order Comment: Speci men Type: VENOUS BLOOD SPECIMEN Ordering Facility: [facility] Address: [address] [place] [address] Performed By: #### 2 4344-4 #### [facility] CLIA [id number] [address] [place] [address] [place] Carboxyhemoglobin (BldV) [Mass fraction] 0.8 % Normal 0.0-2.0 [facility] Comment on above: Order Comment: Speci men Type: VENOUS BLOOD SPECIMEN Ordering Facility: [facility] Address: [address] [place] [address] Result Comment: Carb oxyhemoglobin Reference Range for Smokers: 2.0-8.0% Performed By: #### 2 4344-4 #### [facility] CLIA [id number] [address] [place] [address] [place] CO2 (BldV) [Partial pressure] 38 mm[Hg] Low 42-55 [facility] Comment on above: Order Comment: Speci men Type: VENOUS BLOOD SPECIMEN Ordering Facility: [facility] Address: [address] [place] [address] Performed By: #### 2 4344-4 #### [facility] CLIA [id number] [address] [place] [address] [place] CO2 adjusted to patient's actual temperature (BldV) [Partial pressure] Normal [facility] Comment on above: Order Comment: Speci men Type: VENOUS BLOOD SPECIMEN Ordering Facility: [facility] Address: [address] [place] [address] Performed By: #### 2 4344-4 #### [facility] CLIA [id number] [address] [place] [address] [place] Glucose [Mass/Vol] 397 mg/dL High 60-105 [facility] Comment on above: Order Comment: Speci men Type: VENOUS BLOOD SPECIMEN Ordering Facility: [facility] Address: [address] [place] [address] Performed By: #### 2 4344-4 #### [facility] CLIA [id number] [address] [place] [address] [place] HCO3 (Bld) [Moles/Vol] 24 mmol/L Normal 24-28 [facility] Comment on above: Order Comment: Speci men Type: VENOUS BLOOD SPECIMEN Ordering Facility: [facility] Address: [address] [place] [address] Performed By: #### 2 4344-4 #### [facility] CLIA [id number] [address] [place] [address] [place] Hemoglobin (Bld) [Mass/Vol] 14.3 g/dL Normal 13.0-17.0 [facility] Comment on above: Order Comment: Speci men Type: VENOUS BLOOD SPECIMEN Ordering Facility: [facility] Address: [address] [place] [address] Performed By: #### 2 4344-4 #### [facility] CLIA [id number] [address] [place] [address] [place] Lactate [Moles/Vol] 1.3 mmol/L Normal 0.5-2.2 [facility] Comment on above: Order Comment: Speci men Type: VENOUS BLOOD SPECIMEN Ordering Facility: [facility] Address: [address] [place] [address] Performed By: #### 2 4344-4 #### [facility] CLIA [id number] [address] [place], [place] [address] [place] Methemoglobin (Bld) [Mass fraction] 0.1 % Normal 0.0-1.5 [facility] Comment on above: Order Comment: Speci men Type: VENOUS BLOOD SPECIMEN Ordering Facility: [facility] Address: [address] [place] [address] Performed By: #### 2 4344-4 #### [facility] CLIA [id number] [address] [place] [address] [place] O2 THERAPY RA=Room Air Normal [facility] Comment on above: Order Comment: Speci men Type: VENOUS BLOOD SPECIMEN Ordering Facility: [facility] Address: [address] [place] [address] Performed By: #### 2 4344-4 #### [facility] CLIA [id number] [address] [place] [address] [place] Oxygen (BldV) [Partial pressure] 33 mm[Hg] Low 35-45 [facility] Comment on above: Order Comment: Speci men Type: VENOUS BLOOD SPECIMEN Ordering Facility: [facility] Address: [address] [place] [address] Performed By: #### 2 4344-4 #### [facility] CLIA [id number] [address] [place], [place] [address] [place] Oxygen adjusted to patient's actual temperature (BldV) [Partial pressure] [facility] Comment on above: Order Comment: Speci men Type: VENOUS BLOOD SPECIMEN Ordering Facility: [facility] Address: [address] [place] [address] Performed By: #### 2 4344-4 #### [facility] CLIA [id number] [address] [place], [place] [address] [place] Oxyhemoglobin (BldV) [Mass fraction] 69 % Normal 4-98 [facility] Comment on above: Order Comment: Speci men Type: VENOUS BLOOD SPECIMEN Ordering Facility: [facility] Address: [address] [place], [place] [address] Performed By: #### 2 4344-4 #### [facility] CLIA [id number] [address] [place] [address] [place] pH (BldV) 7.41 [pH] Normal 7.32-7.42 [facility] Comment on above: Order Comment: Speci men Type: VENOUS BLOOD SPECIMEN Ordering Facility: [facility] Address: [address] [place] [address] Performed By: #### 2 4344-4 #### [facility] CLIA [id number] [address] [place] [address] [place] pH adjusted to patient's actual temperature (BldV) Normal [facility] Comment on above: Order Comment: Speci men Type: VENOUS BLOOD SPECIMEN Ordering Facility: [facility] Address: [address] [place] [address] Performed By: #### 2 4344-4 #### [facility] CLIA [id number] [address] [place] [address] [place] Potassium [Moles/Vol] 4.2 mmol/L Normal 2.5-6.0 [facility] Comment on above: Order Comment: Speci men Type: VENOUS BLOOD SPECIMEN Ordering Facility: [facility] Address: [address] [place] [address] Performed By: #### 2 4344-4 #### [facility] CLIA [id number] [address] [place] [address] [place] Sodium [Moles/Vol] 132 mmol/L Low 136-144 [facility] Comment on above: Order Comment: Speci men Type: VENOUS BLOOD SPECIMEN Ordering Facility: [facility] Address: [address] [place] [address] Performed By: #### 2 4344-4 #### [facility] CLIA [id number] [address] [place] [address] [place] HIGH SENSITIVITY TROPONIN Io n 2024 Tropinin I.cardiac panel High sensitivity method 18.3 pg/mL Normal 0.0-54.0 [facility] Comment on above: Order Comment: Speci men Type: BLOOD SPECIMEN Ordering Facility: [facility] Address: [address] [place] [address] Performed By: #### 2 4323-8, 05009-4, MARISA RUBALCAVA #### [facility] CLIA [id number] [address] [place] [address] [place] HISTORY PHYSICALon HISTORY PHYSICAL HNO ID: [id number] Author: ROGELIO COMBS DO Service: Hospital Medicine Author Type: Physician Type: H&P Filed: 2024 18:43 Note Text: HISTORY AND PHYSICAL SERVICE DATE: 2024 SERVICE TIME: 6:08 PM PRIMARY CARE PHYSICIAN: Ciro Schultz MD Subjective CHIEF COMPLAINT: Abdominal pain, nausea HPI: Patient is a 59-year-old male who presents today to the [facility] emergency department for further evaluation of abdominal pain. He also complains of nausea but no vomiting. By his admission symptoms began approximately three days ago and gradually worsened. Upon arrival to the emergency department the patient was found to be markedly hypertensive with a blood pressure of 213/104. On exam his abdomen was not particularly tender to palpation. Chronic right arm weakness was appreciated that was consistent with his previous stroke. Patient had recently undergone excision of a skin lesion from his right arm. Surrounding site was mildly erythematous. Routine labs revealed a chronically elevated creatinine level 1.65 that was consistent with his known stage III chronic kidney disease. Sodium was decreased at 130. White blood cell count was elevated at 19.59. Urinalysis showed no evidence of pyuria. Viral respiratory PCR, including testing for COVID-19, was negative. Chest x-ray showed no obvious infiltrate, effusion, or evidence of pulmonary vascular congestion. CT scan of the abdomen/pelvis was obtained. Findings showed a short segment of small bowel that extended into a right inguinal hernia. However, there was no obvious obstruction. A lucent lesion was seen within the right T12 vertebral body. Patient has been given a dose each of vancomycin and ceftriaxone. He has also been given morphine, Zofran, and IV fluids. PAST MEDICAL HISTORY: Type II diabetes mellitus Hx of stroke Chronic kidney disease (stage III) Hypertension Hyperlipidemia Hx of basal cell carcinoma Hx of squamous cell carcinoma of the skin Hx of tobacco abuse PAST SURGICAL HISTORY: Shave biopsy Toe amputation FAMILY HISTORY: Father: cancer SOCIAL HISTORY: Former smokeless tobacco use MEDICATIONS: cloNIDine TTS (CATAPRES-TTS) 0.3 mg/24 hr, Apply 1 Patch as directed one time a week. Change on Tuesdays, Disp: , Rfl: , 07/15/2024 cephALEXin (KEFLEX) 500 mg capsule, Take 500 mg by mouth four times daily., Disp: , Rfl: , 07/17/2024 cloNIDine HCl (CATAPRES) 0.1 mg tablet, Take 0.1 mg by mouth every 12 hours as needed (SBP >150)., Disp: , Rfl: , Taking As Needed docusate sodium (COLACE) 100 mg capsule, Take 100 mg by mouth two times a day., Disp: , Rfl: , Taking bisacodyl (DULCOLAX) 10 mg supp, 10 mg by RECTAL route once daily as needed for constipation., Disp: , Rfl: , Taking As Needed dapagliflozin propanediol (FARXIGA) 10 mg tablet, Take 10 mg by mouth daily with breakfast., Disp: , Rfl: , Taking aluminum-magnesium hydroxide-simethicone (MAALOX ADVANCED) 200-200-20 mg/5 mL suspension, Take 15 mL by mouth every 4 hours as needed (indigestion)., Disp: , Rfl: , Taking As Needed glucagon (GLUCAGEN) 1 mg/mL injection, Inject 1 mg intramuscularly as needed (hypoglycemia)., Disp: , Rfl: , Taking As Needed hydrALAZINE (APRESOLINE) 10 mg tablet, Take 10 mg by mouth three times a day., Disp: , Rfl: , Taking loperamide HCl (IMODIUM) 2 mg tab, Take 2 mg by mouth as needed (loose stool)., Disp: , Rfl: , Taking As Needed ketoconazole (NIZORAL) 2 % shampoo, Apply 1 Application to affected area once daily. APPLY TO SCALP AND EARS, Disp: , Rfl: , Taking semaglutide (OZEMPIC) 0.25 mg or 0.5 mg (2 mg/3 mL) pen, Inject 0.5 mg subcutaneously one time a week. Take on , Disp: , Rfl: , Taking guaiFENesin-dextromethorpha n (ROBITUSSIN DM) 100-10 mg/5 mL syrup, Take 5 mL by mouth every 4 hours as needed for cough., Disp: , Rfl: , Taking As Needed sodium chloride 0.65 % nasal spray, Use 1 [place] in the nose every 6 hours as needed for cold/allergy symptoms., Disp: , Rfl: , Taking As Needed traMADol (ULTRAM) 50 mg tablet, Take 50 mg by mouth every 8 hours as needed for pain., Disp: , Rfl: , Taking As Needed cholecalciferol (VITAMIN D) 1,000 unit tab tablet, Take 1,000 Units by mouth once daily., Disp: , Rfl: , Taking ondansetron (ZOFRAN) 4 mg tablet, Take 4 mg by mouth every 6 hours as needed for nausea/vomiting., Disp: , Rfl: , Taking As Needed insulin lispro (HUMALOG U-100 INSULIN) 100 unit/mL injection, Inject 8 units subcutaneously 3 times daily before meals. (Patient taking differently: Inject 2-10 Units subcutaneously three times a day before meals. Sliding scale insulin Blood glucose 151-200 2 units sc Blood glucose 201-250 4 units sc Blood glucose 251-300 6 units sc Blood glucose 301-350 8 units sc Blood glucose 351-400 10 units sc), Disp: 10 mL, Rfl: 1, Taking Differently insulin glargine,hum.rec.anlog (LANTUS SOLOSTAR U-100 INSULIN SUBCUTANEOUS), Inject 14 Un (more content not included)... Normal [facility] Magnesium SerPl-mCncon 07-18 Magnesium [Mass/Vol] 1.9 mg/dL Normal 1.6-2.6 [facility] Comment on above: Order Comment: Speci men Type: BLOOD SPECIMEN Ordering Facility: [facility] Address: [address] [place] [address] Performed By: #### 2 4323-8, 69366-4, [facility], [facility] #### [facility] CLIA [id number] [facility] [place] [id number] [place] NURSING PROGon 2024 NURSING PROG HNO ID: [id number] Author: SHARAD THOMAS RN Service: Nursing Author Type: Registered Nurse Type: Nursing Progress Note Filed: 2024 19:27 Note Text: Dr. Sykes to the floor for consultation. Patient is reporting to the physician that he is not having any abdominal pain. Normal [facility] NURSING PROG HNO ID: [id number] Author: MARII NGUYEN, RN Service: Nursing Author Type: Registered Nurse Type: Nursing Progress Note Filed: 2024 21:23 Note Text: Pt agitated can't find phone. Walking down [place]ro. Return to room phone found. Much calmer and pleasent Normal [facility] Resp path 12a Pnl Spec JEFFREY+p robeon 2024 Respiratory pathogens DNA and RNA 12a panel JEFFREY+probe (Unsp spec) BCID INTERPRETATION: Methicillin-resistant Staphylococcus epidermidis (MRSE) detected by PCR. Single positive cultures of S. epidermidis usually represent contamination. Call lab within 72 hours if further work up is required. Abnormal [facility] Comment on above: Performed By: #### 2 4344-4 #### [facility] THERAP[facility] CLIA [id number] [address] [place] [address] [place] SEPSIS LACTATEon 2024 Lactate [Moles/Vol] 1.6 mmol/L Normal 0.4-2.0 [facility] Comment on above: Order Comment: Speci men Type: BLOOD SPECIMEN Ordering Facility: [facility] Address: [address] [place] [address] Performed By: #### S LACT #### [facility] CLIA [id number] [address] [place] [address] [place] Urinalysis complete panel (U )on 2024 Bacteria LM.HPF (Urine sed) [#/Area] Rare Abnormal None Seen [facility] Comment on above: Order Comment: Speci men Type: URINE SPECIMENOrdering Facility: [facility] Address: [address] [place] [address] Performed By: #### 2 4356-8 ####[facility]ORYCLIA [id number] [place] [address] [place] Bilirubin Ql (U) Negative Normal Negative [facility] Comment on above: Order Comment: Speci men Type: URINE SPECIMENOrdering Facility: [facility] Address: [address] [place] [address] Performed By: #### 2 4356-8 ####[facility]ORYCLIA [id number] [place] [id number] [facility] [place] Clarity (Unsp spec) Clear Normal Clear [facility] Comment on above: Order Comment: Speci men Type: URINE SPECIMENOrdering Facility: [facility] Address: [address] [place] [address] Performed By: #### 2 4356-8 ####[facility]ORYCLIA [id number] [address] [place] Color (U) Straw Normal Yellow [facility] Comment on above: Order Comment: Speci men Type: URINE SPECIMENOrdering Facility: [facility] Address: [address] [place] [address] Performed By: #### 2 4356-8 ####[facility]ORYCLIA [id number] [address] [place] Epithelial cells LM.HPF (Urine sed) [#/Area] None Seen Normal [facility] Comment on above: Order Comment: Speci men Type: URINE SPECIMENOrdering Facility: [facility] Address: [address] [place] [address] Performed By: #### 2 4356-8 ####[facility]ORYCLIA [id number] [address] [place] Glucose Test strip (U) [Mass/Vol] 3+ Abnormal Negative [facility] Comment on above: Order Comment: Speci men Type: URINE SPECIMENOrdering Facility: [facility] Address: [address] [place] [address] Performed By: #### 2 4356-8 ####[facility]ORYCLIA [id number] [place] [id number] [place] Hemoglobin Ql (U) Negative Normal Negative [facility] Comment on above: Order Comment: Speci men Type: URINE SPECIMENOrdering Facility: [facility] Address: [address] [place] [address] Performed By: #### 2 4356-8 ####[facility]ORYCLIA [id number] [place] [id number] [place] Ketones Ql (U) Negative Normal Negative [facility] Comment on above: Order Comment: Speci men Type: URINE SPECIMENOrdering Facility: [facility] Address: [address] [place] [address] Performed By: #### 2 4356-8 ####[facility]ORYCLIA [id number] [address] [place] Leukocyte esterase Test strip Ql (U) Negative Normal Negative [facility] Comment on above: Order Comment: Speci men Type: URINE SPECIMENOrdering Facility: [facility] Address: [address] [place] [address] Performed By: #### 2 4356-8 ####[facility]ORYCLIA [id number] [place] [address] [place] Nitrite Ql (U) Negative Normal Negative [facility] Comment on above: Order Comment: Speci men Type: URINE SPECIMENOrdering Facility: [facility] Address: [address] [place] [address] Performed By: #### 2 4356-8 ####[facility]ATORYCLIA [id number] [address] [place] pH (U) 6.0 [pH] Normal 5.0-8.0 [facility] Comment on above: Order Comment: Speci men Type: URINE SPECIMENOrdering Facility: [facility] Address: [address] [place] [address] Performed By: #### 2 4356-8 ####[facility]ATORYCLIA [id number] [address] [place] Protein (U) [Mass/Vol] 3+ Abnormal Negative [facility] Comment on above: Order Comment: Speci men Type: URINE SPECIMENOrdering Facility: [facility] Address: [address] [place] [address] Performed By: #### 2 4356-8 ####[facility]ORYCLIA [id number] [address] [place] RBC LM.HPF (Urine sed) [#/Area] 0-3 /HPF Normal 0-3 /HPF [facility] Comment on above: Order Comment: Speci men Type: URINE SPECIMENOrdering Facility: [facility] Address: [address] [place] [address] Performed By: #### 2 4356-8 ####[facility]ATORYCLIA [id number] [place] [address] [place] Specific gravity (U) [Rel density] 1.024 Normal 1.005-1.030 [facility] Comment on above: Order Comment: Speci men Type: URINE SPECIMENOrdering Facility: [facility] Address: [address] [place] [address] Performed By: #### 2 4356-8 ####[facility]ATORYCLIA [id number] [address] Urobilinogen Ql (U) Negative Normal Negative [facility] Comment on above: Order Comment: Speci men Type: URINE SPECIMENOrdering Facility: [facility] Address: [address] [place] [address] Performed By: #### 2 4356-8 ####[facility] LAB[facility]ATORYIA [id number] [place] [address] [place] WBC LM.HPF (Urine sed) [#/Area] 0-5 /HPF Normal 0-5 /HPF [facility] Comment on above: Order Comment: Speci men Type: URINE SPECIMENOrdering Facility: [facility] Address: [address] [place] [address] Performed By: #### 2 4356-8 ####[facility]ATORYCLIA [id number] [address] [place] XR CHEST 1V FRONTAL PORTon 0 2024 XR CHEST 1V FRONTAL PORT * * *Final Report* * * DATE OF EXAM: 2024 10:06AM [id number] [id number] - XR CHEST 1V FRONTAL PORT / PROCEDURE REASON: Fatigue and malaise * * * * Physician Interpretation * * * * EXAMINATION: CHEST RADIOGRAPH (PORTABLE SINGLE VIEW AP) Exam Date/Time: 2024 10:06 AM CLINICAL HISTORY: Fatigue and malaise MQ: XCPR_5 Comparison: 11/16/2011 RESULT: Lines, tubes, and devices: None. Lungs and pleura: Calcified granuloma again shown laterally at the left base. No consolidation. No pleural effusion, congestion or pneumothorax. Cardiomediastinal silhouette: Normal cardiomediastinal silhouette. Other: Endplate spurring at multiple levels in the lower thoracic spine. IMPRESSION: No acute radiographic abnormality. Staffing Program Manager: PSCPamela Transcribe Date/Time: 2024 10:45A Dictated by : RAEANN JACINTO MD This examination was interpreted and the report reviewed and electronically signed by: RAEANN JACINTO MD on 2024 10:46AM EST [id number] [facility] Mohs surgeryon 07-11-2024 Consent obtained: ronit westonen Nikolski Protocol: Procedure explained and questions answered to patient or proxy's satisfaction: Yes Test results available and properly labeled: Yes Pathology report reviewed: Yes External notes reviewed: Yes Photo or diagram used for site identification: Yes Site/side marked: Yes Slide independently reviewed by Mohs surgeon: Yes Immediately prior to procedure a time out was called: Yes Patient identity confirmed: verbally with patient Preparation: Patient was prepped and draped in usual sterile fashion Anticoagulation: Is the patient taking prescription anticoagulant and/or aspirin prescribed/recommended by a physician? No Was the anticoagulation regimen changed prior to Mohs? 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 No Micrographic Surgery Details: Post-operative length (cm): 4.8 Post-operative width (cm): 3.8 Number of Mohs stages: 1 Stage 1 Comments: The patient was brought into the operating room and placed in the procedure chair in the appropriate position. The area positive by previous biopsy was identified and confirmed with the patient. The area of clinically obvious tumor was debulked using a curette and/or scalpel as needed. An incision was made following the Mohs approach through the skin. The specimen was taken to the lab, divided into 6 piece(s) and appropriately chromacoded and processed. Tumor features identified on Mohs section: no tumor identified Depth of defect: subcutaneous fat Patient tolerance of procedure: tolerated well, no immediate complications Reconstruction: Was the defect reconstructed? Yes Was reconstruction performed by the same Mohs surgeon? Yes Setting of reconstruction: outpatient office When was reconstruction performed? same day Type of reconstruction: linear Linear reconstruction: intermediate Length of linear repair (cm): 8.5 Subcutaneous Layers (Deep Stitches) Suture size: 4-0 and 3-0 Suture type: Vicryl Stitches: Buried vertical mattress Fine/surface layer approximation (top stitches) Epidermal/Superficial suture size: 5-0 Epidermal/Superficial suture type: Fast-absorbing gut Stitches: simple interrupted and simple running Outcome: patient tolerated procedure well with no complications Post-procedure details: sterile dressing applied and wound care instructions given Dressing type: pressure dressing [facility] Work Phone: [facility] Work Phone: Dermatopathology- DERM LABOr dered By: Lois Castanon on 05-23-2024 Laboratory comment Sammy (Report) f2inoMPxCIPff3htDCImvPSfVrR wMzNcZnRuYmpcdWMxIHtccnRmMV rxo2BtP3VxEjGyVKyiboAcRUYaK arcvfgdYYBhHSM5ilApZJYdKZqy YOFhZUrjAe5rrQReiEwwEpGeVEL fg0hkyfPCBByzSTJXVEs9l2upDU RiQaK0iBXqOEqdQ0pcbuGgiSUdS 0Kpm5WdBFx5cU38KLChzZ5meTRt GUffxqLjWaU0GVylJAQlTqX1OGR olCBjPIBoO1enBCAqJLjgLUQlYP rwzNXkSFO1sIdot8X6dWVduESld ZheUlPbRkEmFiKNo1QpHGl9nCjm L3XdKGDeIgY6lTEgPYCjTBcoUEE pTOHdpsF9mZ64XGjtboN6iPSpi8 Enh25sp200eE4xrZDrZVI1ZUGzL KEvvMHaOZBiIZI2AZAmqDRtK0go ZsVoeDZqI3ZzPcOmmPYoC9KpMeW frGNbJ1CfUsLafXPbKQOrhNM0QN dtl963UER1GpKoBF5bR9Twj2N5i M7lkOVhQKQvsNCaHnJfTRMxmx6o bDHpWQjje6ZaLAI6pcK4hJOnlVR bTIUdLM56Yxxbc6MfMtaxIIO9XE GbehOqr2Wjb7zxOtLjkeCmE5yjJ 1AuNKPvWYQpCVVzYrXbzkZah0Rc c8NatVBfrCp6h6xnIBAmNYHvoBi ml0qaTME1TDPxI2B5dUHpc9weKL giAQSilYW7opK8DZpaFHAygeN2t vY1FSczOEXztOI2lcN6SNsoDPTy DyT0wnC7TMkeZDApUTG2QeEbFTM cj5VhrfblBiMmm7XaaOWtLOozX0 0ej743CCMlczCwW3zupRVgowlgm BKcxlqbFJbzqhJ9ZVUsFYGkOIia XGYxXGZzMjBcbGFuZzEwMzNcaGl stVidNMenMgLbSUXlGPotT4bkQk EzRlBlUUYReDM3uDRhx6dfaqS3w QTtDM3jTOXhfEIerqEjm8T9EVT8 tEKzjM1zaIMxWTQakIYwisApll5 6nAJtnAO1QDEcUXEewLBpfM3vCS LkVTALfI1tqXCSzrFmpcTmAKXxk Dfohq9BmZBpgw2zsZSjM6TwnUnt aWVzIHRoYXQgdGhleSBoYXZlIHJ osrtoa2RnRHEreDCtU8FdXF0aEL Bhcn19 [facility] Work Phone: Pathology report Cancer Narrative Dermatopathology Case: [id number] Authorizing Provider: Cesar Broderick MD Collected: 05/21/2024 1058 Ordering Location: [facility] Received: 05/21/2024 1211 Pathologist: Lois Castanon MD Specimens: A) - SKIN, left lateral distal arm, adjacent to scar B) - SKIN, right lateral dorsal mid forearm C) - SKIN, left medial upper back [facility] Work Phone: Pathology report final diagnosis Narrative i1fqvGLnDHLjoWViNIdyRwlvmcS dCQAaiYXiU4OucnxtFNtkMK9mXO 7mmQwsePRaqMGgYHAxGtIkb0yml 323oTOqs6ghXVWJxlihlPa8wMyj X50ko4Y8PyzoE94ibRQxMTA4RLC uPRWioMJeCYPjIAF7KVBqsUYjD2 prVVMzWE2ccxitODuiALwzXKRes WF6UEOtwHJdS3EuXBEwUHflGFSs vre3DzFvVq2ucOHvmWwdFAabCZN xCVEyDRlbFONaTeMdDIssS1cIMl ngSKRARGZJVRXSIhEBADNCM7RVS FDQHn5sMKACVjEMRF3TXCNLCEIK UVOdCIYZCQMCYWHBZ1qIYJ3OHjf pJOChYcMDBKMWKK8MQgUZWDhJIK CAHaGTHz5UUWBUCnVBUQLYBYSyj SJekSGvcJteRteilGM6AUtnYyap xS3ioAQJBDVVBueWBgrhgpEnKB9 LASQDHnGKDV78Vhx3ICm0MJmojL qnCwkvhgVgoCPsZnQclT7TOtJVW G7YHJ5IOITJUYFUUJNPMBDUJOEC MBIFXNfGIcOLWE7FQjiRKdznOzh siHP8VLlgSrjvmF9aaORJWWFFEs lPYafvjoPsNL5JRSMOAA2GjNR1M UC7tTT4HO95HFKwCHGebJNnEXfy K231KJIxJTpnKQYhDsHkTBZzHMI hclxwYXJkXHBhclxiMCBCOiBTS0 lOLCBSSUdIVCBMQVRFUkFMIERPU iYXHLNGEUMvFs3ZVFBOPUatD4uJ OgYtWCnMJCDIG686RJItsvdrPJF DQ7HEZHPLISsaO4IOQ7mXF50JWU JtyCNplKPstUpbQdxmxFX5KJkqX rmqaV0poUIVAFMCFkiBYeffmbKd EJ4QSUUEJgHWHU79Svl5OMC4Ccl aoMcgSdoociWrrDItZiQkvE2YV2 XCFQIKm4xokUEfNVbxRhrljQNls sW4IVtCDCNXMSiAVmKnTU2nQVyR F5XJJoM7Nnv6ODL3IfthdNxhAie anaRcaYJfOuGvtF5ktFxyxM9cSf ilonJpRHRRBd6JHMfyVWWGDTACY gebBSVuk4DeJ8Y8TFTuJJihx0on BBKgKGldg9UdCLiJLMVPTD7AGI6 ukPK6RUlKLWCXO7mWtDE9BAS1pX G7B915MDUaLZMpiIBiRFepX320I JOGM2MMKJCRAqDMIZMpEKNPSRXN TkQgUEVSSVBIRVJBTCBNQVJHSU5 5TIAkXPggr9skRNUzIHwjm6FsZI sWGZFXDJ2SOM4waSO6ASuVVDFEN YylGVcvWGxohXA6m6ganHNrz5e1 LGppXCB5cUaocGFpdqiuNAVfPjM gLlxwYXJccGFyZFxwYXJcYjAgQz ulN5rBHpalOADYIINOKOWYOPubS APHNJZqVpZXMwnfY8tQZvHmPFwH IESHW006WPNxgckbXB6BBWMLWZX AMKMPWLCDSZkVGTVTCSJYMN7PTQ 5FVlVTLCBccHJvdGVjdHtcZmllb CO6WUrwJbmhqR8pmFLXJITOPqxH UmurlrVtEY6ENZSCOmLZNX38Egr 9DEm1SHy9gUsuKqgukyUptICjXn DmnS1MXlgSNDXZMJQUKZ0FAJVES BLpAK2aJJzKBQZVZX7GVnZSEfGS IASTRV2EVsCZGMSWII7AUUhcOui bzNE0GLqhFqdqnN1vbQCIWGEJIh pUGrjcumImIT1EQNSDRM3IpNX9H EU1pFX1BU98ATPuWTAweMJmNWxy W787ASWxUWhhCAIbFpLaXNVoFRW emvmbYMHbDVYlepipiGX3XVMzKe t9BfUsgTdrRbx8BPOiFpCZzXGhk UEdxwpjMIzopZQpaKofMEZar8Y7 ORN6YPoyikRiMP1wPRJoGNLkTfb ysKMpFPFjsaYpoRCkYEPrL04QOa ZCVVEFJ67GMYYXBEQST7MXD0nZX IE7YZX1ePB0W66aJLA8AdrpQEJx Urn5RXz9El3hHyX6DOT9bQU5ZAZ SJWOIXIiGL2DmHSYZBTGLRPKhHO 7QQEcICXFSXBJFT73ODIEXQWYOO 5YQB7dIDYqTGKIXDFMNJ39HHGJW AAWEU1JQLJSXQOXNJCyWAXRSCu6 LEYNMAXXANN0KLPqGZjVcMBqzOE YugCQ0lG4fofefhvvxEPvrHEw0I xb9HGHQIONZUKaKY0MGORNFWUCC IlC9GMLyLO5rCKrbJLTmcFU1uD3 vyrtneuchWKocFOx1RSp3FRNyoQ BkkFyoULIqaU96Fzl6KAsqmHIUU SCNSCcDPUKCGa0MDCWYTSDQAO8L DbCgU1LWHD8DRa8VALVTGBJSUM2 TLJcZXvVpA6IYWW8VNs0PTRAOAR CSWV0EJmYaPAYEO6ZLAfFYE1dfM TUAYFCRBOBiPuZVFH4uVPAQWK3J ONXWCJGXS75KTGGHQBKLF1MHOX2 = [facility] Work Phone: Pathology report gross observation Narrative w9kwwLKiWISqiFZpDGpaYgqszmJ lJXTgvHJcF9KbuwmkHTilAT6uJI 8rmYwdpURkyDWvVGQmOfEcg0amd 692wDRcn3zeUICJygfqySt3aObr H43uj0Y5XrwiP25naAOqCBA6SIR fQRWvjDHiHIBlKQN9UPOhjJYlQ8 ljOVBvJP8ueliyTRvsWWfvICJbz KE1NKWtbEDoA2AwPKOeESlbCACe nsc2IlRiZe9pwULcxFgnWNbwLmm jpPedz6CbmHMxSPgwLAZeAIPcIL spgforMAj6MELfLCxmySZmER8dv GxmViltlByix0YjeFDuHHntVGLe FJIrZXcyMSHoM1KRVCFxMkQ5TNJ sRLjvVQb8UTw8NB0USvToOHPiBu A8Szt2JqXvAKn1KSooBJ9GVBZfP JkpBdV0LnrwUZUxJCFrDJc3VVJt XFxzcyAzIFxcZmwgXFxuYyBcXGZ yfVxwYXJkXHBsYWluXGZzMjIgQT sxxGIhXRCotfAvg8HvPBfhoBpfS EVwTlNzt2LoTWvmtRfrZGCkHlQd zHigmU5sOvMzKPQkSnNyCKh8BHP ltU2wQm8zdEJqxX1emPGvOTR1RH 0soYyuF9Flw2Nwf1ntkkClDEDit QRorjgiSZqyyGB2ACjuTHMkaW3b GHHbDHWeaGTuhW7wvbEcyaOxwcw zQIYihlJiZR9sIDFfSBNiwQ3vfD 31qf5eJUruJBRvT8IjP1DdtlJ6D MCqudvfNhvexBiou8TwyIJhNPmj ZEPeAMTwDOrfNWQfJ7DJOWPzOcA 2GUMvJMgkVHt1WSk6AB1TJgVcAO FbZfA5Ugu8ALJbFVq6EDcmKY4FE DEzMTgyNjUwNTQgNTQyOTYgXFx0 IDIgXFxzcyAzIFxcZmwgXFxuYyB uVXVpzTjoHQLbSNZpEEM9VYDobJ UAn2ErWONrBaNbCjFLGqkrONCzy PEoXEjdLqTsUMYqfOHQv0ZkXHgj FNShRRWyzXGHk7RtNHtsjZLzjsi mczIwICBSZWNlaXZlZCBpbiBmb3 JtYWxpbiBpcyBhIHRhbiBwaWVjZ EVqMoJov6ltRX2cECJ5scjjAbB1 KMnvHLM5ISFnzX8jNOIDdECas8V jI6ktVY8ivRPhrP8nOESaQZ3kKJ OmOcGpWRSaFKmgIVIwnS5qTRL7I FMouEZnXGQ6SH4tgQuiQKQ9HTew JPBjU9KnS4OnANpwMDX8VRMfWhZ kTEQfJD4MYpEgXGNpMnNzSiV3Ka P3VIl4QVNNGjYcAkGqRWqlWqE9W rRaEZw5BYz5YEmGKuOsOdH2HoS3 VSR9YDI0Juv4LEfviOBtEEnuz6Y yMcJuROOtXSnfqvXcLLkupt0mpI XtZSjyHoJcJFxhfCfkTKBoIHN2A FMtKtNxJpmtqRGxQBErbnEce8Mk VKimmUkvOQMgTxIigHkbbT8yUsW sHEJELVQalBJxVQAoxwAme3XtBX qwqqDlqpBaUXJrlv1ymd26chLih OY8KDRzkF3io9tdw5Hxs4exzoZc LCOgzOHnhmzsDEA6HLjwoJFaVH5 tLiAgVGhlIHNwZWNpbWVuIGlzIG uas8DlIGVbGWOthKUhANOjCHCzb oQ0r5GcXsQvVLCfevhvVMEnVOVl EqHeUVGxK7xdVMOkMTR1JJFxjEC nMBR6YH0vhExqLNMdP9ZkS0Jvqw W5UFHtwh5= [facility] Work Phone: Pathology report microscopic observation Narrative Other stain g2eepSCqIGGrnOWfQOikUxscgnC vSQRtqGKaS4EtibfuCImaYH5jDD 8rtNedgHGgcPFtCCTkBjVjv2krl 608tNFwe3qcSZFQkmtkhMt7lJxt R59yb1H6EbxvM71dvUPvIKC6RIF nFJZsrGYpIIUtMFJ5FUCwkRDjE5 hfPJSqNS6awkctOMhyJNzyFSFxf DI7CUHdpWRcK4MvOXDsMSreUXWf xok7GgNaAw9soSOllBgtVFhoBKX uRPOfFWvaRVNfIdQsJV4bTPjthf 7qF77beAPvJN9opKgkcSRuh2kzw 3MgaHlwZXJwbGFzdGljIGVwaWRl yx3vamX2zODoWUI9wUapvSezQ5p kDSZoBUF4iSRaNOIpEdHdMRQmlQ zrh8R8aZNnJhcsTQXlbOKqWCAuE M8xX7Mci3LnfAyiIXCeJYi9l1oc DVOwt5wcYUPhBChzH5DgyGOhut2 xxPoxTP0zEHW4gZ7qIAOjDRMgnM UlKUSgu6HyPYGlRAY6hHQbIBSqN KStvJuwOUCstHPtDWBMvXSoS3Yp Z0dmh89nMBagJVTumHFeq3ZcIS8 bEBViMQ6vVNBeb2Nqo7udZFfcfo S3xM3nB6s3PBIyq7n5wFHnFEFft GhlcmFsIHBhbGlzYWRlZCBhcnJh bmdlbWVudCBvZiBudWNsZWkuXHB ykhjgTBObUw3qAWbedq7gJ70rtM UqBT2gyGzkvWRrd2wvr2BtWO5fI KO8bN4kfMWcSrWknm3itDFbqnP2 oN1yCV1mWY5otSKbb0J6aQOhXRV 2hHBlIFbbaeSeB7lng6ChMSy2dL XwdEvkz7pjMA0wEKAccJTqaa1rn c4eJVcsNPWpJBh1dQ0sJCXaDG3k vTWxe4A4cXHpJBCwPCVaRN9pu4O caVNhINb0fWSexNjjBDekbcqvxS yjCGKmrv3tgE4uuMkeVHNcYWoyb mNiC8Cfv50oPS08mRCaHRGnSDT6 daPtXW7xKQD8j0JmIJLmUVCjibJ paLLiTEFqv7gkkExvMDVat1Lwuc UbN9Mik40ojKXoUWD2pkFpHsEpK Egowg5hjSZjulK8nPY8RHE8nAFh VFQfLBknvdTpfLoyQWCnpa1qzZO lHDG3hvigqKBoSS6rU7a9OOZyhp xjK1zyUdvrmCJfnPipJHK0NLFja x3qaIIjbNJpn1StUJMhQVnpaBPs IQ8iwFmmD9UdLYRyvsHdaD2vvLV kxYE5p5K8XAOusLooYWucQELfzR lsbGFyeSBkZXJtaXMuICBUaGUgb JWuFI9oI6a4NCMbdY0kLZBcWAVb qBcoQGWzu5lkpmLzYS4wNCR7eQ5 pu0koJvDdbAsuuMTyGQVqft0= [facility] Work Phone: Pathology report relevant history Narrative o5cknVBvNKOuw3usKZBjbRVaSdM wMzNcZnRuYmpcdWMxIHtccnRmMV djs9EfJ9ZjIuGzSFfiiaArXCZaJ lqthwkaIYCsABP6qcEbHVZrTJro XTQgKCesCf8krWYeoClnUhVfKCS he8vbthLWZWzlRSZSBKt3i7tmFS MyXyU3eCRxDCtpG6vihgKomJJlW 4Auv0EbHCg6jM51QQVskV4ygBJw BSeqqsPvUxC1TZxoWLLxHvE5OTX uiHEcHWHlG3tvTDCgOUvuWNRcXW hwpYGhPCK7bRirq4K2fOOfjLXdl LmbLjLkPwOnTwPAa3BmPWh3xCna Q1WqWTGnEvF8pOFeBGAgYGonYFG eBFItpaM9rM04YRpjzgK7dUQxh4 Odc63aw362vE2vwZRyQXM8IABmD CRwoNSnGMTzANK0YSRpiMFkH7da GVQkCV6cwxioHMwhBNffUJUftWL 3ZETeiCCsN7HdKCAnIIzgMJVrcz n9EnAmYd0xkYTviJlfZUrpj4pbx 3lxqWIrKsm9EWOmKcEqVamkYOke u1Wfn5gjCIHqww4qDFI7lATfyIb iz9Q0rHZwJGNanAAbzzJkMIWxOz G9VRceIW3sld06FVDkWKL5qa1pg BHqjHdiebRvqXEnZRxlU4FiKZHg z342ZMRcS0PlLXRqf9W0owTqWyP gVPFcaHB3jrI1CVZfZMf2pCRbot J7rfAzjZKyQ1pyuU8dNXVwSR1qf jowb1lmDYyhNOijPAQtaOU0ryQ3 VXDwnTSaU1ZwmP2dDMSfPSrfBFC vvey3NdFjBa8djWRgiUqyYFdfTh twYWdlXHBnbmNvbnRccGduZGVjX HBsYWluXHBsYWluXGYwXGZzMjRc cGFyZFxwbGFpblxmMVxmczIwXGx ubajuOUXgHKpmE3lzIfErJLRyqK jyNDgiu7AhVPIqTMPvEvgjzqZkN GIqF951sqOqhqQMkAQwsg6glEJ0 OX5ok5AdEFRzOD4bFTPiK4TuaMC mzgTcFTozrgkwqyLxKqXga9vcVP xwYXIgXHBhclxxbFxwbGFpblxmM UakktP3YIPuSLmiXBDvIFIyJoCf bGFuZzEwMzNcaGljaFxmMVxkYmN iORQdEIusL8tgSyJzN2UjGEYaJe MsTWWsypUTDjNzYXM8IWAlEEsnN FYnN47fwRNvvPfjqcHWg27eMU31 pfzsVLvtBdNyPO63cXXfRSBzPDu mu2Vbpvamqw1lRHUQI0rVVSFuOU wdC4FgnNB9rhXILDKAAZDgHNOry NGvPAUuTVXeCJ4gjgyzqeCrEWMp H64tQtdjPSrkGFGoM82umAAkjZH 5GRYiyDZsIISoqw5bQCHbSRgnXp svHu04rWvlFMGFbZE6j0HbuZcuo W7unVXfMx9vxOSwqD6yDll2YBRo nFynm2ZbICvxLJXlAumsGKytKoK CMVgvi453GElwJnNhXUqjl1zgRW QVi2B5JXEch7MldADgNHJnRXUfh ZQaYQ5vnaYopZs6VGilLHHojQZp cM2hEKn8tQFui3OwFXCxsDljXLT qaUHzEZWlYYlhZ6NzrZA9ciUtE9 ScKLNiffPfeAHlGNaKCaCpRKW6R IDuXfkxNZRlE07knGFdjZedpuFX s16nQJ79hxygGCdiBpVfUQ76dJX uMUDdEIuvx1Ngxzllkm8qBAQNU9 tkWCKmO3yuQ6viMJCsC4clovLCB XMvTm8/TxKiGVWactSKq82rCK50 czogIFxwYXIgRGVybXBhdGggTGF cRrMZb3F8uV4bHMfdy1CrrQF7oL 2or6n1WDvyk5AtSUmtkx4ivCocG TZ1dECedGKhUFCifkVSyL1kmM7l YHHpX2tnwliiZgithYKoOs9eJET zoGDjKNAjp3YyfbsitldkARFqZ6 JxX1bcWV1wQ1EdSYF9jDDjAoXeI P0qBAVhrfoxm6PxcTvglBTlcOsm VZGmarHsiAQrRFoJYwYzXCK1XPG gM3zrPVEpH32uhHNukKfrclFWo1 8zCH96iexeBRdpZjUkNM78yTIlI IJrGAfst4Pazjdufr9tHJC0j2Wa DJJ1qTGobsI4oIQvMQBtolJVnDH spcNAKOYtdB9jIQuxvl6Jji01GD RodLMpBQQhuJ7zejLeSyEtEMEve oLMKTJlwEV7wUAXKNK8PACrzSMb wxKwGHebmX3pKBIgy9jiQ8ytPRK wgb1ngTbkSELaoBViCUOeu5T6ZX albSNpDKPbdfRoevxgHmCiuT4uH bATHPX4ZVZsiPCrZENyO1mviLDt IWTdJDQuuUBtYH4uwrPxwPm8ZMm tLBQdyUVakpOdE1RqGRXhdWeqIB JgmHkbAG19DUGsnGHinVgsTKWsx iBccGFyIFxwbGFpblxmMVxmczIw NJfqksotJZKkVNguS7yfPoUeBWZ vvLknPOzqe5DpUNFaVTGhCoXvrW FyfX0= [facility] Work Phone: [facility] Work Phone: DERMPATH LAB- DERMATOPATHKARINA jacquelin 05-21-2024 DERMPATH LAB- DERMATOPATHOLOGY Pathology report.total SEE COMMENT Dermatopathology Case: [id number] Authorizing Provider: Cesar Broderick MD Collected: 05/21/2024 1058 Ordering Location: [facility] Received: 05/21/2024 1211 Pathologist: Lois Castanon MD Specimens: A) - SKIN, left lateral distal arm, adjacent to scar B) - SKIN, right lateral dorsal mid forearm C) - SKIN, left medial upper back Path report.final diagnosis SEE COMMENT A: SKIN, LEFT LATERAL DISTAL ARM, ADJACENT TO SCAR, SHAVE EXCISION: SQUAMOUS CELL CARCINOMA IN SITU, PRESENT ON THE DEEP AND PERIPHERAL MARGIN. B: SKIN, RIGHT LATERAL DORSAL MID FOREARM, SHAVE EXCISION: BASAL CELL CARCINOMA, NODULAR GROWTH PATTERN, PRESENT ON THE DEEP AND PERIPHERAL MARGIN. C: SKIN, LEFT MEDIAL UPPER BACK, SHAVE EXCISION: MILDLY DYSPLASTIC COMPOUND NEVUS, INKED MARGINS FREE IN THE PLANES OF SECTIONS EXAMINED. Electronically signed out by Lois Castanon MD Laboratory comment By the signature on this report, the individual or group listed as making the Final Interpretation/Diagnosis certifies that they have reviewed this case. Path report.relevant Hx SEE COMMENT Encounter Diagnosis: Neoplasm of uncertain behavior of skin [id number] A Collection Comments: Differential Diagnosis: r/o SCCIS, adjacent to ED&C scar Check Margins Yes/No?: Comments: Dermpath Lab: Routine Histopathology (formalin-fixed tissue) Finding Region: Left Elbow - Posterior Specimen Objective: 5 mm pink hyperkeratotic papule adjacent to scar [id number] B Collection Comments: Differential Diagnosis: r/o SCC Check Margins Yes/No?: Comments: Dermpath Lab: Routine Histopathology (formalin-fixed tissue) Finding Region: Right Forearm - Posterior Specimen Objective: 3 mm pink scaly papule [id number] C Collection Comments: Differential Diagnosis: r/o dysplastic nevus Check Margins Yes/No?: Comments: Dermpath Lab: Routine Histopathology (formalin-fixed tissue) Finding Region: Left Upper Back Specimen Objective: 4 mm irregular hyperpigmented macule Path report.microscopic observation SEE COMMENT A. Microscopic analysis shows hyperplastic epidermis with full-thickness atypia of keratinocytes. B. Microscopic analysis shows a discrete nodule of tumor that is associated with the epidermis. The carcinoma is composed of bland basaloid keratinocytes with peripheral palisaded arrangement of nuclei. C. Microscopic analysis shows an asymmetric proliferation of melanocytes, with lentiginous hyperplasia of epidermis. In addition to melanocytes that nest irregularly along the dermal-epidermal junction, other features of dysplasia include a shoulder of junctional nests of melanocytes that extend beyond the dermal nests, melanocyte bridging, papillary dermal fibroplasia, melanophages, and inflammatory cells in papillary dermis. The melanocytes in epidermis show random cytologic atypia. Path report.addendum SEE COMMENT Grossing was performed by Velvet Blanco. Addendum electronically signed by Yolis Rodriges CPT on 05/30/2024 at 8:36 AM Path report.gross observation SEE COMMENT A: Received in formalin is a bundy piece of skin measuring 8 x 6 x 1 mm. The specimen is inked and embedded in toto. B: Received in formalin is a bundy piece of skin measuring 6 x 5 x 1 mm. The specimen is inked and embedded in toto. C: Received in formalin is a bundy-brown shave biopsy of skin measuring 8 x 7 x 1 mm. The specimen is inked and embedded in toto. [facility] Ambulatory Destr of lesionon 05-21-2024 Complexity: simple Destruction method: cryotherapy Informed consent: discussed and consent obtained Lesion destroyed using liquid nitrogen: Yes Cryotherapy cycles: 1 Outcome: patient tolerated procedure well with no complications Post-procedure details: wound care instructions given [facility] Work Phone: [facility] Work Phone: Shave removalon 05-21-2024 Lesion length (cm): 0.6 Lesion width (cm): 0.6 Margin per side (cm): 0.2 Lesion diameter (cm): 1 Informed consent: discussed and consent obtained Timeout: patient name, date of , surgical site, and procedure verified Procedure prep: Patient was prepped and draped Anesthesia: the lesion was anesthetized in a standard fashion Anesthetic: 1% lidocaine w/ epinephrine 1-100,000 local infiltration Instrument used: flexible razor blade Hemostasis achieved with: aluminum chloride Outcome: patient tolerated procedure well Post-procedure details: sterile dressing applied and wound care instructions given Dressing type: bandage and petrolatum [facility] Work Phone: [facility] Work Phone: Lesion length (cm): 0.6 Lesion width (cm): 0.6 Margin per side (cm): 0 Lesion diameter (cm): 0.6 Informed consent: discussed and consent obtained Timeout: patient name, date of , surgical site, and procedure verified Procedure prep: Patient was prepped and draped Anesthesia: the lesion was anesthetized in a standard fashion Anesthetic: 1% lidocaine w/ epinephrine 1-100,000 local infiltration Instrument used: flexible razor blade Hemostasis achieved with: aluminum chloride Outcome: patient tolerated procedure well Post-procedure details: sterile dressing applied and wound care instructions given Dressing type: bandage and petrolatum [facility] Work Phone: [facility] Work Phone: Lesion length (cm): 0.7 Lesion width (cm): 0.7 Margin per side (cm): 0 Lesion diameter (cm): 0.7 Informed consent: discussed and consent obtained Timeout: patient name, date of , surgical site, and procedure verified Procedure prep: Patient was prepped and draped Anesthesia: the lesion was anesthetized in a standard fashion Anesthetic: 1% lidocaine w/ epinephrine 1-100,000 local infiltration Instrument used: flexible razor blade Hemostasis achieved with: aluminum chloride Outcome: patient tolerated procedure well Post-procedure details: sterile dressing applied and wound care instructions given [facility]: [facility]: [facility] Work Phone: US RENAL COMPLETEon 04-08-20 US RENAL COMPLETE Interpreted By: Mirna Mosley, STUDY: US RENAL COMPLETE; 04/08/2024 3:20 pm INDICATION: Signs/Symptoms:CKD. COMPARISON: None. ACCESSION NUMBER(S): [id number] ORDERING CLINICIAN: BOBBY TRACEY TECHNIQUE: Multiple images of the kidneys were obtained. FINDINGS: RIGHT KIDNEY: 11.7 cm in length. No hydronephrosis. No focal renal abnormality. LEFT KIDNEY: 11 cm in length. No hydronephrosis. No focal renal abnormality. BLADDER: Unremarkable for degree of distention. IMPRESSION: No focal renal abnormality or hydronephrosis. Signed by: Mirna Figueroa 04/09/2024 7:08 PM Dictation workstation: [id number] Normal [facility] Basic metabolic 2000 panelon 11-09-2023 Anion gap [Moles/Vol] 15 mmol/L Normal - [facility] Comment on above: Performed By: #### 2 4321-2 #### TAMMIE LARES ([id number]) [facility] ([facility]) [address] [place] [address] Calcium [Mass/Vol] 8.3 mg/dL Low 8.6-10.[address] [facility] Comment on above: Performed By: #### 2 4321-2 #### TAMMIE LARES ([id number]) [facility] ([facility] [place]) [address] [place] [address] Chloride [Moles/Vol] 102 mmol/L Normal 98-107 [facility] Comment on above: Performed By: #### 2 4321-2 #### TAMMIE LARES ([id number]) [facility] ([facility] [place]) [address] [place] [address] CO2 [Moles/Vol] 22 mmol/L Normal 21-32 [facility] Comment on above: Performed By: #### 2 4321-2 #### TAMMIE LARES ([id number]) [facility] ([facility] [place]) [address] [place] [address] Creatinine [Mass/Vol] 1.97 mg/dL High 0.50-1.30 [facility] Comment on above: Performed By: #### 2 4321-2 #### TAMMIE LARES ([id number]) [facility] ([facility] [place]) [address] [place] [address] Glomerular filtration rate/1.73 sq M.predicted 38 mL/min/1.73m*2 Low >60 [facility] Comment on above: Result Comment: Calc ulations of estimated GFR are performed using the 2020 CKD-EPI Study Refit equation without the race variable for the IDMS-Traceable creatinine methods. https://jasn.asnjournals.org/content/early//ASN.4201667 988 Performed By: #### 2 4321-2 #### TAMMIE LARES ([id number]) [facility] ([facility] [place]) [address] [place] [address] Glucose [Mass/Vol] 263 mg/dL High 74-[address] [facility] Comment on above: Performed By: #### 2 4321-2 #### TAMMIE LARES ([id number]) [facility] ([facility] [place]) [address] [place], [place] [id number] Potassium [Moles/Vol] 5.3 mmol/L Normal 3.5-5.3 [facility] Comment on above: Performed By: #### 2 4321-2 #### TAMMIE LARES ([id number]) [facility] ([facility] [place]) [address] [place] [address] Sodium [Moles/Vol] 134 mmol/L Low 136-[address] [facility] Comment on above: Performed By: #### 2 4321-2 #### TAMMIE LARES ([id number]) [facility] ([facility] [place]) [address] [place] [address] Urea nitrogen [Mass/Vol] 34 mg/dL High 6-23 [facility] Comment on above: Performed By: #### 2 1-2 #### TAMMIE LARES ([id number]) [facility] ([facility] [place]) [address] [place] [address] CBC W Auto Differential pane l (Bld)on 11-09-2023 Basophils (Bld) [#/Vol] 0.11 x10*3/uL High 0.00-0.10 [facility] Comment on above: Performed By: #### 5 7021-8 #### TAMMIE LARES ([id number]) [facility] ([facility] [place]) [address] [place], [place] [id number] Basophils/100 WBC (Bld) 1.1 % Normal 0.0-2.0 [facility] Comment on above: Performed By: #### 5 7021-8 #### TAMMIE LARES ([id number]) [facility] ([facility] [place]) [address] [place], [place] [phone] Eosinophils (Bld) [#/Vol] 0.43 x10*3/uL Normal 0.00-0.70 [facility] Comment on above: Performed By: #### 5 7021-8 #### TAMMIE LARES ([id number]) [facility] ([facility] [place]) [address] [place] [id number] Eosinophils/100 WBC (Bld) 4.2 % Normal 0.0-6.0 [facility] Comment on above: Performed By: #### 5 7021-8 #### TAMMIE LARES ([id number]) [facility] ([facility] [place]) [address] [place] [id number] Erythrocyte distribution width (RBC) [Ratio] 13.1 % Normal 11.5-14.5 [facility] Comment on above: Performed By: #### 5 7021-8 #### TAMMIE LARES ([id number]) [facility] ([facility] [place]) [facility] [place] [address] Hematocrit (Bld) [Volume fraction] 34.4 % Low 41.0-52.0 [facility] Comment on above: Performed By: #### 5 7021-8 #### TAMMIE LARES ([id number]) [facility] ([facility] [place]) [address] [place] [address] Hemoglobin (Bld) [Mass/Vol] 10.9 g/dL Low 13.5-17.5 [facility] Comment on above: Performed By: #### 5 7021-8 #### TAMMIE LARES ([id number]) [facility] ([facility] [place]) [address] [place] [address] Immature granulocytes (Bld) [#/Vol] 0.09 x10*3/uL Normal 0.00-0.70 [facility] Comment on above: Performed By: #### 5 7021-8 #### TAMMIE LARES ([id number]) [facility] ([facility] [place]) [address] [place] [id number] Immature granulocytes/100 WBC (Bld) 0.9 % Normal 0.0-0.9 [facility] Comment on above: Result Comment: Traci ture Granulocyte Count (IG) includes promyelocytes, myelocytes and metamyelocytes but does not include bands. Percent differential counts (%) should be interpreted in the context of the absolute cell counts (cells/UL). Performed By: #### 5 7021-8 #### TAMMIE LARES ([id number]) [facility] ([facility] [place]) [address] [place] [address] Lymphocytes (Bld) [#/Vol] 2.71 x10*3/uL Normal 1.20-4.80 [facility] Comment on above: Performed By: #### 5 7021-8 #### TAMMIE LARES ([id number]) [facility] ([facility] [place]) [address] [place] [id number] Lymphocytes/100 WBC (Bld) 26.8 % Normal 13.0-44.0 [facility] Comment on above: Performed By: #### 5 7021-8 #### TAMMIE LARES ([id number]) [facility] ([facility] [place]) [address] [place] [id number] MCH (RBC) [Entitic mass] 30.4 pg Normal 26.0-34.0 [facility] Comment on above: Performed By: #### 5 7021-8 #### TAMMIE LARES ([id number]) [facility] ([facility] [place]) [address] [place] [address] MCHC (RBC) [Mass/Vol] 31.7 g/dL Low 32.0-36.0 [facility] Comment on above: Performed By: #### 5 7021-8 #### TAMMIE LARES ([id number]) [facility] ([facility] [place]) [address] [place] [id number] MCV (RBC) [Entitic vol] 96 fL Normal 80-100 [facility] Comment on above: Performed By: #### 5 7021-8 #### TAMMIE LARES ([id number]) [facility] ([facility] [place]) [address] [place] [place] [id number] Monocytes (Bld) [#/Vol] 0.84 x10*3/uL Normal 0.10-1.00 [facility] Comment on above: Performed By: #### 5 7021-8 #### TAMMIE LARES ([id number]) [facility] ([facility] [place]) [address] [place] [address] Monocytes/100 WBC (Bld) 8.3 % Normal 2.0-10.0 [facility] Comment on above: Performed By: #### 5 7021-8 #### TAMMIE LARES ([id number]) [facility] ([facility] [place]) [address] [place] [address] Neutrophils (Bld) [#/Vol] 5.94 x10*3/uL Normal 1.20-7.70 [facility] Comment on above: Result Comment: Perc ent differential counts (%) should be interpreted in the context of the absolute cell counts (cells/uL). Performed By: #### 5 7021-8 #### TAMMIE LARES ([id number]) [facility] ([facility] [place]) [address] [place] [address] Neutrophils/100 WBC (Bld) 58.7 % Normal 40.0-80.0 [facility] Comment on above: Performed By: #### 5 7021-8 #### TAMMIE LARES ([id number]) [facility] ([facility] [place]) [address] [place] [address] Nucleated RBC/100 WBC (Bld) [Ratio] 0.0 /100 WBCs Normal 0.0-0.0 [facility] Comment on above: Performed By: #### 5 7021-8 #### TAMMIE LARES ([id number]) [facility] ([facility] [place]) [address] [place] [address] Platelets (Bld) [#/Vol] 430 x10*3/uL Normal 150-450 [facility] Comment on above: Performed By: #### 5 7021-8 #### TAMMIE LARES ([id number]) [facility] ([facility] [place]) [address] [place] [address] RBC (Bld) [#/Vol] 3.58 x10*6/uL Low 4.50-5.90 [facility] Comment on above: Performed By: #### 5 7021-8 #### TAMMIE LARES ([id number]) [facility] ([facility] [place]) [address] [place] [address] WBC (Bld) [#/Vol] 10.1 x10*3/uL Normal 4.4-11.3 [facility] Comment on above: Performed By: #### 5 7021-8 #### TAMMIE LARES ([id number]) [facility] ([facility] [place]) [address] [place] [address] Basic metabolic 2000 panelon 10-03-2023 Anion gap [Moles/Vol] 9 mmol/L Normal 8-15 [facility] Comment on above: Order Comment: Speci men Type: BLOOD SPECIMEN Ordering Facility: [facility] Address: [address] [place] [address] Performed By: #### H STNT, 00561-7 #### [facility] CLIA [id number] [address] [place] [address] [place] Calcium [Mass/Vol] 8.9 mg/dL Normal 8.5-10.2 [facility] Comment on above: Order Comment: Speci men Type: BLOOD SPECIMEN Ordering Facility: [facility] Address: [address] [place] [address] Performed By: #### H STNT, 55369-6 #### [facility] CLIA [id number] [address] [place] [address] [place] Chloride [Moles/Vol] 106 mmol/L Normal 98-107 [facility] Comment on above: Order Comment: Speci men Type: BLOOD SPECIMEN Ordering Facility: [facility] Address: [address] [place] [address] Performed By: #### H STNT, 04440-9 #### [facility] CLIA [id number] [address] [place] [address] [place] CO2 [Moles/Vol] 21 mmol/L Low 22-30 [facility] Comment on above: Order Comment: Speci men Type: BLOOD SPECIMEN Ordering Facility: [facility] Address: [address] [place] [address] Performed By: #### H STNT, 84360-5 #### [facility] CLIA [id number] [address] [place] [address] [place] Creatinine [Mass/Vol] 1.73 mg/dL High 0.73-1.22 [facility] Comment on above: Order Comment: Wayne medrano Type: BLOOD SPECIMEN Ordering Facility: [facility] Address: [address] [place] [address] Performed By: #### H STNT, 44807-9 #### [facility] CLIA [id number] [address] [place] [address] [place] Creatinine and Glomerular filtration rate.predicted panel (S/P/Bld) 45 mL/min/1.73m??? Low >=60 [facility] Comment on above: Order Comment: Wayne medrano Type: BLOOD SPECIMEN Ordering Facility: [facility] Address: [address] [place] [address] Result Comment: Shruti perez Glomerular Filtration Rate (eGFR) is calculated using the 2020 CKD-EPI creatinine equation. This equation utilizes serum creatinine, sex, and age as parameters. The creatinine assay has traceable calibration to isotope dilution-mass spectrometry. Refer to KDIGO guidelines for clinical interpretation. In patients with unstable renal function, e.g. those with acute kidney injury, the eGFR may not accurately reflect actual GFR. Performed By: #### H STNT, 94292-6 #### [facility] CLIA [id number] [address] [place] [address] [place] Glucose [Mass/Vol] 93 mg/dL Normal 74-99 [facility] Comment on above: Order Comment: Wayne medrano Type: BLOOD SPECIMEN Ordering Facility: [facility] Address: [address] [place] [address] Result Comment: The [place] [employer] (ADA) provides guidance for cutoff values for fasting glucose and random glucose. The ADA defines fasting as no caloric intake for at least 8 hours. Fasting plasma glucose results between 100 to 125 mg/dL indicate increased risk for diabetes (prediabetes). Fasting plasma glucose results greater than or equal to 126 mg/dL meet the criteria for diagnosis of diabetes. In the absence of unequivocal hyperglycemia, results should be confirmed by repeat testing. In a patient with classic symptoms of hyperglycemia or hyperglycemic crisis, random plasma glucose results greater than or equal to 200 mg/dL meet the criteria for diagnosis of diabetes. Reference: Standards of Medical Care in Diabetes 2016, [place] [employer]. Diabetes Care. 2016.39(Suppl 1). Performed By: #### H STNT, 50188-6 #### [facility] CLIA [id number] [address] [place] [address] [place] Potassium [Moles/Vol] 5.0 mmol/L Normal 3.7-5.1 [facility] Comment on above: Order Comment: Speci men Type: BLOOD SPECIMEN Ordering Facility: [facility] Address: [address] [place] [address] Performed By: #### H STNT, 17720-2 #### [facility] CLIA [id number] [address] [place] [address] [place] Sodium [Moles/Vol] 136 mmol/L Normal 136-144 [facility] Comment on above: Order Comment: Speci men Type: BLOOD SPECIMEN Ordering Facility: [facility] Address: [address] [place] [address] Performed By: #### H STNT, 53376-2 #### [facility] CLIA [id number] [address] [place] [address] [place] Urea nitrogen [Mass/Vol] 23 mg/dL Normal 9-24 [facility] Comment on above: Order Comment: Speci men Type: BLOOD SPECIMEN Ordering Facility: [facility] Address: [address] [place] [address] Performed By: #### H STNT, 85229-2 #### [facility] CLIA [id number] [address] [place] [address] [place] CBC W Auto Differential pane l (Bld)on 10-03-2023 Basophils (Bld) [#/Vol] 0.11 10*3/uL High <0.11 [facility] Comment on above: Order Comment: Speci men Type: BLOOD SPECIMEN Ordering Facility: [facility] Address: [address] [place] [address] Performed By: #### 5 7021-8 #### [facility] CLIA [id number] [address] [place] [address] [place] Basophils/100 WBC (Bld) 1.0 % Normal [facility] Comment on above: Order Comment: Speci men Type: BLOOD SPECIMEN Ordering Facility: [facility] Address: [address] [place] [address] Performed By: #### 5 7021-8 #### [facility] CLIA [id number] [address] [place] [address] [place] Differential cell count method Nom (Bld) Auto Normal [facility] Comment on above: Order Comment: Speci men Type: BLOOD SPECIMEN Ordering Facility: [facility] Address: [address] [place] [address] Performed By: #### 5 7021-8 #### [facility] CLIA [id number] [address] [place] [address] [place] Eosinophils (Bld) [#/Vol] 0.21 10*3/uL Normal <0.46 [facility] Comment on above: Order Comment: Speci men Type: BLOOD SPECIMEN Ordering Facility: [facility] Address: [address] [place] [address] Performed By: #### 5 7021-8 #### [facility] CLIA [id number] [address] [place] [address] [place] Eosinophils/100 WBC (Bld) 2.0 % Normal [facility] Comment on above: Order Comment: Speci men Type: BLOOD SPECIMEN Ordering Facility: [facility] Address: [address] [place] [address] Performed By: #### 5 7021-8 #### [facility] CLIA [id number] [address] [place] [address] [place] Erythrocyte distribution width (RBC) [Ratio] 13.4 % Normal 11.5-15.0 [facility] Comment on above: Order Comment: Speci men Type: BLOOD SPECIMEN Ordering Facility: [facility] Address: [address] [place] [address] Performed By: #### 5 7021-8 #### [facility] CLIA [id number] [address] [place] [address] [place] Hematocrit (Bld) [Volume fraction] 26.1 % Low 39.0-51.0 [facility] Comment on above: Order Comment: Speci men Type: BLOOD SPECIMEN Ordering Facility: [facility] Address: [address] [place] [address] Performed By: #### 5 7021-8 #### [facility] CLIA [id number] [address] [place] [address] [place] Hemoglobin (Bld) [Mass/Vol] 8.5 g/dL Low 13.0-17.0 [facility] Comment on above: Order Comment: Speci men Type: BLOOD SPECIMEN Ordering Facility: [facility] Address: [address] [place] [address] Performed By: #### 5 7021-8 #### [facility] CLIA [id number] [address] [place] [address] [place] Immature granulocytes (Bld) [#/Vol] 0.06 10*3/uL Normal <0.10 [facility] Comment on above: Order Comment: Speci men Type: BLOOD SPECIMEN Ordering Facility: [facility] Address: [address] [place] [address] Performed By: #### 5 7021-8 #### [facility] CLIA [id number] [address] [place] [address] [place] Immature granulocytes/100 WBC (Bld) 0.6 % Normal [facility] Comment on above: Order Comment: Speci men Type: BLOOD SPECIMEN Ordering Facility: [facility] Address: [address] [place] [address] Performed By: #### 5 7021-8 #### [facility] CLIA [id number] [address] [place] [address] [place] Lymphocytes (Bld) [#/Vol] 1.68 10*3/uL Normal 1.00-4.00 [facility] Comment on above: Order Comment: Speci men Type: BLOOD SPECIMEN Ordering Facility: [facility] Address: [address] [place] [address] Performed By: #### 5 7021-8 #### [facility] CLIA [id number] [address] [place] [address] [place] Lymphocytes/100 WBC (Bld) 15.9 % Normal [facility] Comment on above: Order Comment: Speci men Type: BLOOD SPECIMEN Ordering Facility: [facility] Address: [address] [place] [address] Performed By: #### 5 7021-8 #### [facility] CLIA [id number] [address] [place] [address] [place] MCH (RBC) [Entitic mass] 30.4 pg Normal 26.0-34.0 [facility] Comment on above: Order Comment: Speci men Type: BLOOD SPECIMEN Ordering Facility: [facility] Address: [address] [place] [address] Performed By: #### 5 7021-8 #### [facility] CLIA [id number] [address] [place] [address] [place] MCHC (RBC) [Mass/Vol] 32.6 g/dL Normal 30.5-36.0 [facility] Comment on above: Order Comment: Speci men Type: BLOOD SPECIMEN Ordering Facility: [facility] Address: [address] [place] [address] Performed By: #### 5 7021-8 #### [facility] CLIA [id number] [address] [place] [address] [place] MCV (RBC) [Entitic vol] 93.2 fL Normal 80.0-100.0 [facility] Comment on above: Order Comment: Speci men Type: BLOOD SPECIMEN Ordering Facility: [facility] Address: [address] [place] [address] Performed By: #### 5 7021-8 #### [facility] CLIA [id number] [address] [place] [address] [place] Monocytes (Bld) [#/Vol] 0.62 10*3/uL Normal <0.87 [facility] Comment on above: Order Comment: Speci men Type: BLOOD SPECIMEN Ordering Facility: [facility] Address: [address] [place] [address] Performed By: #### 5 7021-8 #### [facility] CLIA [id number] [address] [place] [address] [place] Monocytes/100 WBC (Bld) 5.9 % Normal [facility] Comment on above: Order Comment: Speci men Type: BLOOD SPECIMEN Ordering Facility: [facility] Address: [address] [place] [address] Performed By: #### 5 7021-8 #### [facility] CLIA [id number] [address] [place] [address] [place] Neutrophils (Bld) [#/Vol] 7.91 10*3/uL High 1.45-7.50 [facility] Comment on above: Order Comment: Speci men Type: BLOOD SPECIMEN Ordering Facility: [facility] Address: [address] [place] [address] Performed By: #### 5 7021-8 #### [facility] CLIA [id number] [address] [place] [address] [place] Neutrophils/100 WBC (Bld) 74.6 % Normal [facility] Comment on above: Order Comment: Speci men Type: BLOOD SPECIMEN Ordering Facility: [facility] Address: [address] [place] [address] Performed By: #### 5 7021-8 #### [facility] CLIA [id number] [address] [place] [address] [place] Nucleated RBC (Bld) [#/Vol] 10*3/uL Normal <0.01 [facility] Comment on above: Order Comment: Speci men Type: BLOOD SPECIMEN Ordering Facility: [facility] Address: [address] [place] [address] Performed By: #### 5 7021-8 #### [facility] CLIA [id number] [address] [place] [address] [place] Nucleated RBC/100 WBC (Bld) [Ratio] 0.0 /100 WBC Normal [facility] Comment on above: Order Comment: Speci men Type: BLOOD SPECIMEN Ordering Facility: [facility] Address: [address] [place] [address] Performed By: #### 5 7021-8 #### [facility] CLIA [id number] [address] [place] [address] [place] Platelet mean volume (Bld) [Entitic vol] 9.5 fL Normal 9.0-12.7 [facility] Comment on above: Order Comment: Speci men Type: BLOOD SPECIMEN Ordering Facility: [facility] Address: [address] [place] [address] Performed By: #### 5 7021-8 #### [facility] CLIA [id number] [address] [place] [address] [place] Platelets (Bld) [#/Vol] 438 10*3/uL High 150-400 [facility] Comment on above: Order Comment: Speci men Type: BLOOD SPECIMEN Ordering Facility: [facility] Address: [facility] [place] [address] Performed By: #### 5 7021-8 #### [facility] CLIA [id number] [address] [place] [address] [place] RBC (Bld) [#/Vol] 2.80 10*6/uL Low 4.20-6.00 [facility] Comment on above: Order Comment: Speci men Type: BLOOD SPECIMEN Ordering Facility: [facility] Address: [facility] [place] [address] Performed By: #### 5 7021-8 #### [facility] CLIA [id number] [address] [place] [address] [place] WBC (Bld) [#/Vol] 10.59 10*3/uL Normal 3.70-11.00 [facility] Comment on above: Order Comment: Speci men Type: BLOOD SPECIMEN Ordering Facility: [facility] Address: [facility] [place] [address] Performed By: #### 5 7021-8 #### [facility] CLIA [id number] [address] [place] [address] [place] ECG COMPLETEon 10-03-2023 ECG COMPLETE Ventricular Rate : 5 3 BPM Atrial Rate : 53 BPM P-R Interval : 158 ms QRS Duration : 100 ms Q-T Interval : 454 ms QTC Calculation(Bazett) : 426 ms Calculated P [place] : 63 degrees Calculated R [place] : 58 degrees Calculated T [place] : 67 degrees SINUS BRADYCARDIA OTHERWISE NORMAL ECG NO PREVIOUS ECGS AVAILABLE CONFIRMED 1105 Confirmed by MD ESPINOSA JASON ([id number]), graphics editor MAXIMILIAN CHA ([id number]) on 10/04/2023 7:51:20 AM NAME : CIRO HAWKINS PID : [id number] : 1965 Gender : Male Race : ORD : [id number] Procedure Date : Oct 03 2023 11:03:33 Edit Date : Oct 04 2023 07:51:22 Diagnosis: SINUS BRADYCARDIA OTHERWISE NORMAL ECG NO PREVIOUS ECGS AVAILABLE CONFIRMED 1105 Confirmed by MD ESPINOSA JASON (), graphics editor MAXIMILIAN CHA ([id number]) on 10/04/2023 7:51:20 AM Test Reason : Chest Pain Location : 26 : ER L Overread By : MD ESPINOSA JASON Edited By : MAXIMILIAN CHA Referred By : , Acquired by : [id number], [facility] ED NOTEon 10-03-2023 ED NOTE HNO ID: [id number] Author: YULY TROY RN Service: ? Author Type: Registered Nurse Type: ED Notes Filed: 10/03/2023 21:16 Note Text: The patient is demanding to leave against medical advice. This RN discussed in no uncertain terms that he needs to stay in the hospital due to his elevated BP with history of stroke with the risk of . The states that he is leaving. When I asked how the patient was going to get home the patient stated that he was going to walk. The patient lives about ten miles away from the hospital. The patient states that he does not care how far it is he wants to leave. IV removed. The patient IV was removed. I spoke with the patient's assisted living who confirmed that the patient has capacity and makes his own medical decisions. The patient was again offered to be medicated and sent to the floor in a ready bed. The patient does not want to wait for his BP to improve and again was spoken with about the risk of a poor medical outcome including possible by leaving the hospital against medical advice. The patient is leaving and signed AMA paperwork. [facility] ED NOTE HNO ID: [id number] Author: YULY TROY, RN Service: ? Author Type: Registered Nurse Type: ED Notes Filed: 10/03/2023 20:54 Note Text: The [facility] ED NOTE HNO ID: [id number] Author: OKSANA BRONSON RN Service: ? Author Type: Registered Nurse Type: ED Notes Filed: 10/03/2023 20:02 Note Text: Patient requesting to leave. RN told patient that it would be against medical advice. aware [facility] ED NOTE HNO ID: [id number] Author: YULY TROY RN Service: ? Author Type: Registered Nurse Type: ED Notes Filed: 10/03/2023 18:32 Note Text: Contacted pharmacy to get labetalol. [facility] ED NOTE HNO ID: [id number] Author: PRECIOUS SETH RN Service: Nursing Author Type: Registered Nurse Type: ED Notes Filed: 10/03/2023 10:53 Note Text: Pt arrived to ED with elevated BP. Pt was about 180/80 at independent living. He recently had a change to BP medication. [facility] ED PROV NOTEon 10-03-2023 ED PROV NOTE HNO ID: [id number] Author: RAEANN GOINS DO Service: Emergency Medicine Author Type: Physician Type: ED Provider Notes Filed: 10/31/2023 14:38 Note Text: ED Provider Note Patient Name: Ciro Hawkins : 1965 SERVICE DATE: 10/03/23 History Patient presents with: Hypertension HPI Presented from care facility for elevated blood pressure and had recent changes in medication. He has no complaints at this time denies chest pain or shortness of breath no neurologic symptoms reported patient resting comfortably in bed in no acute distress. History reviewed. No pertinent past medical history. History reviewed. No pertinent surgical history. No family history on file. Social History Tobacco Use Smoking status: Former Types: Cigarettes Quit date: 2021 Years since quittin.5 Smokeless tobacco: Never Vaping Use Vaping Use: Never used Substance and Sexual Activity Alcohol use: Not Currently Comment: History of abuse Drug use: Not on file Comment: History of substance abuse. Rare marijuana now Sexual activity: Not on file ALLERGIES No Known Allergies Review of Systems All other systems reviewed and are negative. Physical Exam Vitals BP Pulse Temp Temp src Resp SpO2 Weight Height 10/03/23 1052 10/03/23 1052 10/03/23 1052 10/03/23 1052 10/03/23 1052 10/03/23 1052 10/03/23 1050 10/03/23 1050 198/70 57 36.8 ?C (98.2 ?F) Oral 16 99 % 104.3 kg (230 lb) 1.778 m (5' 10") Physical Exam Vitals and nursing note reviewed. Constitutional: Appearance: Normal appearance. He is well-developed. HENT: Head: Normocephalic and atraumatic. Cardiovascular: Rate and Rhythm: Normal rate and regular rhythm. Pulses: Normal pulses. Heart sounds: Normal heart sounds. Pulmonary: Effort: Pulmonary effort is normal. Breath sounds: Normal breath sounds. Abdominal: General: Bowel sounds are normal. There is no distension. Palpations: Abdomen is soft. There is no mass. Tenderness: There is no abdominal tenderness. There is no guarding or rebound. Musculoskeletal: General: Normal range of motion. Cervical back: Normal range of motion and neck supple. Lymphadenopathy: Cervical: No cervical adenopathy. Skin: General: Skin is warm and dry. Capillary Refill: Capillary refill takes less than 2 seconds. Neurological: General: No focal deficit present. Mental Status: He is alert and oriented to person, place, and time. Motor: No abnormal muscle tone. Psychiatric: Behavior: Behavior normal. Diagnostic Testing ED Labs Ordered and Reviewed BASIC METABOLIC PANEL - Abnormal; Notable for the following components: Result Value Ref Range Creatinine 1.73 (*) 0.73 - 1.22 mg/dL CO2 21 (*) 22 - 30 mmol/L Estimated Glomerular Filtration Rate 45 (*) >=60 mL/min/1.73m? All other components within normal limits COMPLETE BLOOD COUNT AND DIFFERENTIAL - Abnormal; Notable for the following components: RBC 2.80 (*) 4.20 - 6.00 m/uL Hemoglobin 8.5 (*) 13.0 - 17.0 g/dL Hematocrit 26.1 (*) 39.0 - 51.0 % Platelet Count 438 (*) 150 - 400 k/uL Abs Neut 7.91 (*) 1.45 - 7.50 k/uL Abs Baso 0.11 (*) <0.11 k/uL All other components within normal limits HIGH SENSITIVITY TROPONIN T - Abnormal; Notable for the following components: TIM High Sensitivity 62 (*) <12 ng/L All other components within normal limits HIGH SENSITIVITY TROPONIN T (INITIAL) - Abnormal; Notable for the following components: TIM High Sensitivity 61 (*) <12 ng/L All other components within normal limits HIGH SENSITIVITY TROPONIN T (SECOND) - Abnormal; Notable for the following components: TIM High Sensitivity 59 (*) <12 ng/L All other components within normal limits Results for orders placed or performed during the hospital encounter of 10/03/23 ECG COMPLETE Impression SINUS BRADYCARDIA OTHERWISE NORMAL ECG NO PREVIOUS ECGS AVAILABLE CONFIRMED 1105 Confirmed by MD FRANCISCA, ROB ([id number]), graphics editor MAXIMILIAN CHA ([id number]) on 10/04/2023 7:51:20 AM Procedures ED Course / Clinical Impression ED Course as of 10/31/23 1438 Others' Documentation Wed Oct 03, 2023 1119 EKG shows rate of 53 sinus bradycardia with suggestion of peaked T waves with early repolarization pattern but no overt ischemic change there is a QRS of 100 ms. [MARIKA] ED Course User Index [MARIKA] Rob Espinosa MD Clinical Impressions as of 10/31/23 1438 Hypertensive urgency Obesity, Class II, BMI 35-39.9 Renal disease MDM / Disposition / Plan Patient presented with above symptoms. Patient blood pressure was significantly elevated here in the ED initially treated with medications with some improvement still awaiting laboratory results some improvement of blood pressure plan to observe and hopefully discharge home back to care facility and if blood pressure not improving or other concern will be admitted for further blood pressure control. Signed out to oncoming physician. History (more content not included)... Normal [facility] ED PROV NOTE HNO ID: [id number] Author: GISEL LUZ, DO Service: ? Author Type: Physician Type: ED Provider Notes Filed: 10/03/2023 22:05 Note Text: ED CONTINUATION OF CARE NOTE Code Status: Prior Assumed care from: Dr Goins Presentation / Findings / Interventions / Plan / Items to Follow Up: This is a 58-year-old male who presents the emergency department with hypertension from assisted living facility. No evidence of endorgan damage on workup. Medicated with home blood pressure medications, persistently hypertensive. Signed out to me by Dr. Perdue pending repeat blood pressure medication administration, reevaluation of blood pressure. ED Course as of 10/03/23 1711 Others' Documentation Wed Oct 03, 2023 1119 EKG shows rate of 53 sinus bradycardia with suggestion of peaked T waves with early repolarization pattern but no overt ischemic change there is a QRS of 100 ms. [MARIKA] ED Course User Index [MARIKA] Rob Espinosa MD Clinical Impressions as of 10/03/23 1711 Hypertensive urgency Medical Decision Making Patient was remedicated with clonidine, hydralazine. Persistently hypertensive in the emergency department. Discussed with Dr. Mac, admitted for further management of hypertensive urgency. 21:00 -patient was signed a bed upstairs, however he became frustrated with the delay in being transferred up for admission. He is requesting discharge. I did discuss risks of not being admitted for treatment of his hypertensive urgency, including stroke, endorgan damage, . Patient is alert and oriented, has capacity to make medical decisions and is requesting to proceed with discharge home AGAINST MEDICAL ADVICE at this time. Patient was discharged AGAINST MEDICAL ADVICE, advised to return to the emergency department at any point for further evaluation and treatment. SIGNATURE: Gisel Luz DO PATIENT NAME: Ciro Hawkins DATE: October 03, 2023 TIME: 5:11 PM PAGER/CONTACT #: GISEL LUZ 10/03/23 2205 [facility] ED Triage Noteon 10-03-2023 ED Triage Note HNO ID: [id number] Author: BRYAN GILL MD Service: Emergency Medicine Author Type: Physician Type: ED Triage Notes Filed: 10/03/2023 10:57 Note Text: ED INTAKE NOTE Patient Name: Ciro Hawkins Service Date: 10/03/23 BRIEF HPI: This is a 58 year old male who presents to the ED with: This male was having asymptomatic hypertension. No headache, neurologic symptoms, chest pain, shortness of breath, abdominal pain, or back pain. Lives in assisted living. Patient recently had a blood pressure medication change but he is uncertain which medicines were discontinued. BRIEF EXAM: NAD Awake and Alert Non labored breathing No focal neurological deficits INITIAL WORKUP AND DECISION MAKING: Orders Placed This Encounter No orders of the defined types were placed in this encounter. Provider examination performed via virtual platform with assistance from bedside clinician. SIGNATURE: Bryan Gill MD Normal [facility] HIGH SENSITIVITY TROPONIN To n 10-03-2023 Troponin T.cardiac High sensitivity method [Mass/Vol] 62 ng/L High <12 [facility] Comment on above: Order Comment: Wayne medrano Type: BLOOD SPECIMEN Ordering Facility: [facility] Address: [address] [place] [address] Result Comment: When assessing risk for acute coronary syndromes: In patients undergoing blood draw greater than or equal to 2 hours from symptom onset, with history of very low to moderate risk and non-ischemic ECG, an initial hs-Troponin T less than 12 ng/L AND a 1 hour delta hs-Troponin T less than 3 ng/L should be considered very low risk for 30 day MACE. Performed By: #### H STNT, 40035-0 #### [facility] CLIA [id number] [address] [place] [address] STATES [facility] HIGH SENSITIVITY TROPONIN T (INITIAL)on 10-03-2023 Troponin T.cardiac High sensitivity method [Mass/Vol] 61 ng/L High <12 [facility] Comment on above: Order Comment: Wayne medrano Type: BLOOD SPECIMENOrdering Facility: [facility] Address: [address] [place] [address] Result Comment: When assessing risk for acute coronary syndromes: In patients undergoing blood draw greater than or equal to 2 hours from symptom onset, with history of very low to moderate risk and non-ischemic ECG, an initial hs-Troponin T less than 12 ng/L AND a 1 hour delta hs-Troponin T less than 3 ng/L should be considered very low risk for 30 day MACE. Performed By: #### L [id number] ####[facility] [id number] [address] [place] HIGH SENSITIVITY TROPONIN T (SECOND)on 10-03-2023 Troponin T.cardiac High sensitivity method [Mass/Vol] 59 ng/L High <12 [facility] Comment on above: Order Comment: Speci men Type: BLOOD SPECIMENOrdering Facility: [facility] Address: [address] [place] [address] Result Comment: When assessing risk for acute coronary syndromes: In patients undergoing blood draw greater than or equal to 2 hours from symptom onset, with history of very low to moderate risk and non-ischemic ECG, an initial hs-Troponin T less than 12 ng/L AND a 1 hour delta hs-Troponin T less than 3 ng/L should be considered very low risk for 30 day MACE. Performed By: #### L [id number] ####[facility] [id number] [address] [place] Skin excisionon 10-02-2023 Lesion length (cm): 1.2 Margin per side (cm): 0.2 Total excision diameter (cm): 1.6 Informed consent: discussed and consent obtained Timeout: patient name, date of , surgical site, and procedure verified Procedure prep: Patient was prepped and draped Anesthesia: the lesion was anesthetized in a standard fashion Anesthetic: 1% lidocaine w/ epinephrine 1-100,000 local infiltration Hemostasis achieved with: electrodesiccation Outcome: patient tolerated procedure well with no complications Post-procedure details: sterile dressing applied and wound care instructions given Dressing type: pressure dressing Additional details: The lesion was treated via destruction using the electrodesiccation and curettage technique. Three passes were performed. The patient understands that the specimen will not be sent to pathology. The patient was also advised that should the lesion recur, it may be treated with excision or Mohs surgery at that time. [facility] Work Phone: [facility] Work Phone: Lesion length (cm): 1.8 Margin per side (cm): 2 Total excision diameter (cm): 2.2 Informed consent: discussed and consent obtained Timeout: patient name, date of , surgical site, and procedure verified Procedure prep: Patient was prepped and draped Anesthesia: the lesion was anesthetized in a standard fashion Anesthetic: 1% lidocaine w/ epinephrine 1-100,000 local infiltration Hemostasis achieved with: electrodesiccation Outcome: patient tolerated procedure well with no complications Post-procedure details: sterile dressing applied and wound care instructions given Dressing type: pressure dressing Additional details: The lesion was treated via destruction using the electrodesiccation and curettage technique. Three passes were performed. The patient understands that the specimen will not be sent to pathology. The patient was also advised that should the lesion recur, it may be treated with excision or Mohs surgery at that time. [facility] Work Phone: [facility] Work Phone: Basic metabolic 2000 panelon 09-21-2023 Anion gap [Moles/Vol] 12 mmol/L Normal 10-20 [facility] Comment on above: Performed By: #### 2 4321-2 #### CHRISTIANO Velasquez ([id number]) [facility] ([facility]) [address] [place] [address] 04072 Calcium [Mass/Vol] 8.7 mg/dL Normal 8.6-10.6 [facility] Comment on above: Performed By: #### 2 4321-2 #### CHRISTIANO Velasquez ([id number]) [facility] ([facility]) [address] [place] [address] 68533 Chloride [Moles/Vol] 109 mmol/L High 98-107 [facility] Comment on above: Performed By: #### 2 4321-2 #### CHRISTIANO FORD L ([id number]) [facility] ([facility]) [address] [place] [address] 09981 CO2 [Moles/Vol] 23 mmol/L Normal 21-32 [facility] Comment on above: Performed By: #### 2 4321-2 #### CHRISTIANO FORD L ([id number]) [facility] ([facility]) [address] [place] [address] 43493 Creatinine [Mass/Vol] 1.80 mg/dL High 0.50-1.30 [facility] Comment on above: Performed By: #### 2 4321-2 #### CHRISTIANO FORD L ([id number]) [facility] ([facility]) [id number] [place] [address] 80194 Glomerular filtration rate/1.73 sq M.predicted 43 mL/min/1.73m*2 Low >60 [facility] Comment on above: Result Comment: Calc ulations of estimated GFR are performed using the 2020 CKD-EPI Study Refit equation without the race variable for the IDMS-Traceable creatinine methods. https://jasn.asnjournals.org/content/early//ASN.4516518 988 Performed By: #### 2 4321-2 #### CHRISTIANO FORD L ([id number]) [facility] ([facility]) [id number] [place] [address] 27771 Glucose [Mass/Vol] 175 mg/dL High 74-99 [facility] Comment on above: Performed By: #### 2 4321-2 #### CHRISTIANO FORD L ([id number]) [facility] ([facility]) [address] [place] [address] 75515 Potassium [Moles/Vol] 5.2 mmol/L Normal 3.5-5.3 [facility] Comment on above: Performed By: #### 2 4321-2 #### CHRISTIANO CHEEKMOTZJANNET L ([id number]) [facility] ([facility]) [address] [place] [address] 46715 Sodium [Moles/Vol] 139 mmol/L Normal 136-145 [facility] Comment on above: Performed By: #### 2 4321-2 #### CHRISTIANO CHEEKMOTZJANNET L ([id number]) [facility] ([facility]) [address] [place] [address] 24956 Urea nitrogen [Mass/Vol] 31 mg/dL High 6-23 [facility] Comment on above: Performed By: #### 2 4321-2 #### CHRISTIANO CHEEKMOTZJANNET L ([id number]) [facility] ([facility]) [address] [place] [address] 54105 CBC W Auto Differential pane l (Bld)on 09-21-2023 Basophils (Bld) [#/Vol] 0.10 x10*3/uL Normal 0.00-0.10 [facility] Comment on above: Performed By: #### 5 7021-8 #### CHRISTIANO FORD L ([id number]) [facility] ([facility]) [address] [place] [address] 89051 Basophils/100 WBC (Bld) 1.0 % Normal 0.0-2.0 [facility] Comment on above: Performed By: #### 5 7021-8 #### CHRISTIANO Velasquez ([id number]) [facility] ([facility]) [address] [place] [address] 79121 Eosinophils (Bld) [#/Vol] 1.01 x10*3/uL High 0.00-0.70 [facility] Comment on above: Performed By: #### 5 7021-8 #### CHRISTIANO Velasquez ([id number]) [facility] ([facility]) [address] [place] [address] 65484 Eosinophils/100 WBC (Bld) 9.9 % Normal 0.0-6.0 [facility] Comment on above: Performed By: #### 5 7021-8 #### CHRISTIANO Velasquez ([id number]) [facility] ([facility]) [address] [place] [address] 23798 Erythrocyte distribution width (RBC) [Ratio] 14.3 % Normal 11.5-14.5 [facility] Comment on above: Performed By: #### 5 7021-8 #### CHRISTIANO Velasquez ([id number]) [facility] ([facility]) [address] [place] [address] 34348 Hematocrit (Bld) [Volume fraction] 27.5 % Low 41.0-52.0 [facility] Comment on above: Performed By: #### 5 7021-8 #### CHRISTIANO FORD L ([id number]) [facility] ([facility]) [address] [place] [address] 83015 Hemoglobin (Bld) [Mass/Vol] 8.8 g/dL Low 13.5-17.5 [facility] Comment on above: Performed By: #### 5 7021-8 #### CHRISTIANO Velasquez ([id number]) [facility] ([facility]) [address] [place] [address] 60180 Immature granulocytes (Bld) [#/Vol] 0.03 x10*3/uL Normal 0.00-0.70 [facility] Comment on above: Performed By: #### 5 7021-8 #### CHRISTIANO Velasquez ([id number]) [facility] ([facility]) [address] [place] [address] 14178 Immature granulocytes/100 WBC (Bld) 0.3 % Normal 0.0-0.9 [facility] Comment on above: Result Comment: Traci ture Granulocyte Count (IG) includes promyelocytes, myelocytes and metamyelocytes but does not include bands. Percent differential counts (%) should be interpreted in the context of the absolute cell counts (cells/UL). Performed By: #### 5 7021-8 #### CHRISTIANO Velasquez ([id number]) [facility] ([facility]) [address] [place] [address] 33772 Lymphocytes (Bld) [#/Vol] 1.80 x10*3/uL Normal 1.20-4.80 [facility] Comment on above: Performed By: #### 5 7021-8 #### CHRISTIANO Velasquez ([id number]) [facility] ([facility]) [address] [place] [address] Lymphocytes/100 WBC (Bld) 17.7 % Normal 13.0-44.0 [facility] Comment on above: Performed By: #### 5 7021-8 #### CHRISTIANO Velasquez ([id number]) [facility] ([facility]) [address] [place] [address] 70607 MCH (RBC) [Entitic mass] 30.2 pg Normal 26.0-34.0 [facility] Comment on above: Performed By: #### 5 7021-8 #### CHRISTIANO Velasquez ([id number]) [facility] ([facility]) [address] [place] [address] MCHC (RBC) [Mass/Vol] 32.0 g/dL Normal 32.0-36.0 [facility] Comment on above: Performed By: #### 5 7021-8 #### CHRISTIANO Velasquez ([id number]) [facility] ([facility]) [address] [place] [address] MCV (RBC) [Entitic vol] 95 fL Normal 80-100 [facility] Comment on above: Performed By: #### 5 7021-8 #### CHRISTIANO Velasquez ([id number]) [facility] ([facility]) [address] [place] [address] 67339 Monocytes (Bld) [#/Vol] 0.75 x10*3/uL Normal 0.10-1.00 [facility] Comment on above: Performed By: #### 5 7021-8 #### CHRISTIANO Velasquez ([id number]) [facility] ([facility]) [address] [place] [address] 18782 Monocytes/100 WBC (Bld) 7.4 % Normal 2.0-10.0 [facility] Comment on above: Performed By: #### 5 7021-8 #### CHRISTIANO Velasquez ([id number]) [facility] ([facility]) [address] [place] [address] 92374 Neutrophils (Bld) [#/Vol] 6.47 x10*3/uL Normal 1.20-7.70 [facility] Comment on above: Result Comment: Perc ent differential counts (%) should be interpreted in the context of the absolute cell counts (cells/uL). Performed By: #### 5 7021-8 #### CHRISTIANO Velasquez ([id number]) [facility] ([facility]) [address] [place] [address] Neutrophils/100 WBC (Bld) 63.7 % Normal 40.0-80.0 [facility] Comment on above: Performed By: #### 5 7021-8 #### CHRISTIANO Velasquez ([id number]) [facility] ([facility]) [address] [place] [address] Nucleated RBC/100 WBC (Bld) [Ratio] 0.0 /100 WBCs Normal 0.0-0.0 [facility] Comment on above: Performed By: #### 5 7021-8 #### CHRISTIANO Velasquez ([id number]) [facility] ([facility]) [address] [place] [address] Platelets (Bld) [#/Vol] 383 x10*3/uL Normal 150-450 [facility] Comment on above: Performed By: #### 5 7021-8 #### CHRISTIANO Velasquez ([id number]) [facility] ([facility]) [address] [place] [address] 55382 RBC (Bld) [#/Vol] 2.91 x10*6/uL Low 4.50-5.90 [facility] Comment on above: Performed By: #### 5 7021-8 #### CHRISTIANO Velasquez ([id number]) [facility] ([facility]) [address] [place] [address] 76536 WBC (Bld) [#/Vol] 10.2 x10*3/uL Normal 4.4-11.3 [facility] Comment on above: Performed By: #### 5 7021-8 #### CHRISTIANO Velasquez ([id number]) [facility] ([facility]) [address] [place] [address] 29521 Dermatopathology- DERM LABOr dered By: Martha Lima on 09-04-2023 Laboratory comment Sammy (Report) f3nxoYNkSAUpb5rnOEAzaWMiAfQ wMzNcZnRuYmpcdWMxIHtccnRmMV zns9VzD3IcHzAjLGehmfVySALcX flzgvzuUNKfSIC9jtEmEUUnFQyi KNHmNVptLr2guWEzkRysZjIrSMO sb6podkJTZCwrCYDZANj5u6qsSO YdPzG2mYBlTGkaR6jfbkLblQOrD 6Jlg4GbILi0xZ69OPFlkA1elHUd SNmtymAoHdJ5KWopUGUmLnR3BFG xbYQtISFhF2czCFWjJCxvQFPvKW ffrAPmZEQ2gOerj9O6eSWxkZRvr JmzFgKrXaKwOmSBx3OxSBz2yOxk J7NnKYZnHbR3nELkSRIcGWmyPYO gBCHepnD8oN56EFxcukF0qWOmi6 Wej48bc215aI0yoOLvPXE8IMWmL GBqxAOwHSBpHPO3PVLrlRQrM8mr PeLrlRQyP9RwSoQffFWtV7DeXaF kwCCmY3YrDyElvULhJYFkhUN3IE mng115MUH6EwTjOG5gH6Baj2N2u I8acBWxJDZjqTUtXzHvDIAueu4h pSZqXGmvz1AsCUH5egE9xAUvrRR yWWDlRZ15Mtfkb9DdRqrdBLS2OH NdhdRpv7Iee5peJjEpuoAsB2dkF 5SeDAZnTBSnUVVgOhSyswIka6Ly c1QsrWWoeSz2t0gmBFZaJFIhvUc sc6xoXBK7ISDtU6P6sMAvj3wrDS kvHOAcaLC2wsW0ABjlRTKuhlE3n zD0SLjpZGSuqOT6nuU8MCbqUBOu KiZ1vmH4XZcoNQMbIYT1PfXnLJD ly8AthyvxHyMhs7XfpYClIOvnF3 1hp377WTMlyrPbW8psqAFefhaex ARxcpegWBwfhdF3XKAsTHQvOCju XGYxXGZzMjBcbGFuZzEwMzNcaGl izHnxXNewHvSuBWLiAClaG7gnBu OfDrQhRWLRsJF8uYIrc7hqxrD7f VZpNM9uTNRmeHJqigVuw4X8EKH0 cVFmsO8jcSMiGNJqoGEsvmJlpw9 2fLVulUN0AJXvTNXyoAHpcW9fWH KaGFJHiT5ibLZPiuCjygHuGHWpg Eqjua6KpFYxtw6wtLXdU3WbjWey aWVzIHRoYXQgdGhleSBoYXZlIHJ euufvy9BdSUTukHHjX8TbSG8jAM Bhcn19 [facility] Work Phone: Pathology report Cancer Narrative Dermatopathology Case: [id number] Authorizing Provider: Aristeo Brock MD Collected: 08/31/2023 0957 Ordering Location: [facility] Received: 08/31/2023 1209 Pathologist: Martha Lima MD Specimens: A) - SKIN, Left Wrist - Posterior B) - SKIN, Left Hand - Posterior C) - SKIN, Left Antecubital Fossa D) - SKIN, Left Upper Back [facility] Work Phone: Pathology report final diagnosis Narrative z3tkeFDaXPQuoRGpWKElW3lnkkQ pDGAlqUAsG7WomwrrUUlcXS5vXW 1npBvrdYBpbLShXYZkKjWox4jia 146gGBmy4uhOWHHvstubRq5jQwz H70be5N6ZwftH17vrIOiWMA7FBU vZCIfzAUoXGXyOTA7ZDLtdNOxY7 ysNBYbOC7rjksyJTekNHhxJDSwz GH9ZAMhpHEtA2XtBWIuJCmtAUSa swg0ZfSvUy9yxDJenUklBBljKGY tVQOyUAkfWCIsPcTvSJ4bH0bAHd wjSXRZIUWHTbpCIU7GX0YTYGYHM 0CfBVWOXECLLKYSG3JHRSsrpWEc WBBqK7LCDG8KAQIwD8KFKVHHQHG JGC7UXHLbCN5tU4nQRTzoXPvSUZ 8BTP9FPENLGGLLGKNPMJDPIEDKT CBUSEUgUEVSSVBIRVJBTCBNQVJH CT8ZMKxBUGJRTWKHGTHZSN8XStV UXsNEUEIZCJ5DZlhvOVHjzEVeFR QbTECiZKHYDH0cTEeEFhWxYNSGY I1SX0OOAOIQA8NhKBCOHFFTVNOL Y0UHAUwhdKhbTQxdGSKJQJTND9R SEVHBSBwoK1IHM8lRD98XIRwVIS NJVFUsIEVYVEVORElORyBUTyBBI UCGSnwMLUXXYJhaYAKGQ1mEZGsJ MNVGXBKHQXSLOC0JFdJRVdIITCQ FER1DNykgNTRtpWExUPAgJSQyGY UKKU6fGYgQIvJbOY6GXAYMWihZN DvhQv1EE5EdGYSTDHJXDGWUF2UL TKhybMpwAKvxCSLVSCOUU4LMZNB EEXlxM6LBE4yQC84ECJuIKHHHOZ UsIEVYVEVORElORyBUTyBUSEUgU ITKFUKPKOVZKFYXTEGIAN7WITbD ZZQRFFUWGMUIEG0RLvJNMyXBNMB SDL6YHrtxYWOxbIXcRSPoMTYfZZ UYDD5hOUaXBzBcLZEGBZVvFnBID ntbA2vMZvVcOutJFBHXOebgtT0z NIItNeUONRuuJ0KHUOGLEQRXLE6 PTUEsIFNVUEVSRklDSUFMIEFORC CIR9RPNKJXAGICDmJLMSDWMSVSH AXGZpQLIjozZA8yJPfNIZVPYJPt AX5JOKItNPDZVBPAUFCTDFYCFXR ZCD3aWF5eGBfSF8XaBRwTWdXCYH 7XVCUPD3RHF68uETyuMYQmuKQoW QexHHW6FDksrLbqERvszB1eNNUp PZhuGCP7xGXxurQlZnRCrIEqiPM wbhuwQCkgbDChfGbgRZXht7Z7LJ Q2DFHABAkMAtdsKz7pYh3HTcndW UQgKipccGFyfQ== [facility] Work Phone: Pathology report gross observation Narrative l5dmtRBpATFooODxLHEkN2blvjB jKMLagUGsQ0BpzyebPUtyEE7cBV 5pvIvnsWCccARzZXNoWtQxg8rxf 830zQThy2anMBQUipusdKx7uQia X37ph7D5DmyzT29isOOrNMU0QIQ pHOFngCQyUOVbKHK2KNIiiFToY5 coAOGnWI3krjklMXfpDQzoXZUwg KQ4IIDesRLiW7MmPQUbRXpqTUIv kob6UfBcMl8lzPRqaObnOUrmRpg gnVfof0AevLUeANtdTTYiJFZyLT zuvykoZTv6HGGjTFomcLKaBM0ll NjbLgdbiNmxa4UdfRDaJYteSTNv PKKeMIzzLVJqQ5ZNDSFbFGRuFAG 3BGgxGLt1OAp6OE5GCuUqUGXmXG pvGRU5GPYtCOu0HMagYG0MYNaxX wK2MtKqBpV0SCW3VHWoSQLrCyJo HAOxEWPnJXpqaBQvFB8kkJrrKHB kXHBsYWluXGZzMjIgQTpccGFyXH FaipGeq4BaGJranWzuKWRyRrOxx 4TlDYkovBbwEZWaCnLzmXlcaZ1o UwJyZBIkAfDmDKk7GGWarE3vFo0 jaFHldU5raIMeQMJwUcD3HXkphZ RmGW9fKICoHCYyIY3zHKFsiM9sV CBJdCBpcyBccHJvdGVjdHtcZmll kTT8HJbyXmzmcF7bvLTCFCCDFij UGhxtmeImYK9HKBDJDuOBYH91Tt kgYGn9BUfsdBkuAmyitkWyxLSfU xUvxV72MB27IHVnVDeeq5ewYFLi KDmwe0EiZJzIKWFEGL2GIW2fsPH 9GWgHYJYRYGwwZFVfDKgmkPI9b7 yjzVCne7e3OJloMXS6bTlkdJCsl fihgiAaQHPknlIjo2jbul9iZTh2 TNoyYGrene00HFE3q2igpGZvMIh oSylcyMWzxwJ4LGiNQWSRXEhORn EnIN9sSDiMV6NTRAoLAsqoATXpE XoppQD9u1wagDJqm4h5ZOdhNQW3 sVDhIRBrl9ciaUJtJJpeDyxvbMS nthA8QOqZBFSSDRfQBuHfFT3wGH qSQ2AZAbA0VfedAIt8DkguwHprR popdoBbuYWlMkKfwA0ueLmtwM0k LeVoWUAzmJ0ty0uuxAUwDSDFvWX 5TMWqIF4nBAEsCHYqXXZac3QnU8 M2MODrLYerq2kgWPAyKRdgr0IsF GrOOXIPEC1LYR6tjIQ6ZCbEWFVC P2lBzVT9YwNwsQV4G028QLHnNOF wtKQfIHhfC310mB3gwX90n4ymTg nabDT8BJbeDhitpJ3mbGBJJFIQJ kuDKbcxlvPsIM5ATRVQLJ4RxWB0 ApFcaKE8X250XUZiGFZkzDJnMPa qD914VQVtGSlcLFGwSkMrOzTvTA Rfm8IhB4L7XZRnAUvgz8ntFNGzG Ivli8YbGBiKTBIWMA1UFI5uzVB9 IPgATONNK0sYqFB0XGL6xNJ8FA9 3WCVoDMObhCAeGPodE219KBoaGM TxJVMbqGDoTMbzzkDuyxusDC13X ZXbWXnkw5usFWBlPSsfh9JaJFgQ LWKYYG1LQK6vgXR3NDrHPYFDTXs tCCscWTh6bFM3d4ctxOWod4x0GH zhVRR0xGmxrDRhomqfkrFaIGMgH PtpPUGoW6MbI2LxauA9GPFagwox XolfjKxfn1UyfFSsLYnqJUDkLQI fFIokLIOsK0TVRQGoQVIfWSC3TR ulYOu8VSo2XZ0YOwRkFQJhCOlcA FA4KTNpJAr5WJytJW0KEOzjKlK8 JsW5GuJ9RFD7GJIxCYYpSmKpHVR vKBUjHLzsjCUsKB2uhVslWZLkAX EuKTO6IGZazGYLw3LnFVJaCdPpC iBCOlxwYXJccGFyZFxzYjMwXGVw iSPQu5QzTXovZDJuEPYqrLEKv7E zMFxwbGFpblxmczIwICBSZWNlaX HnIGWybqAmg3QvOQrdwfCpgdDqN AHiDAdqJYK5JDGnyA1opUsuI0Yw w9Sev5fpkf4sIDr3LVedFRupwu6 4MIF5h2cwtJNeGJywKgswzGJamc B4TYbIESSMAQjXWaQyIB6nXStWD 4GBVWcILrwtEEFoLXp6dYQ8k3ee hXMpy1d4YAazXUT4wNAyjuVrawB vHvIim884NYJgIRgap7rdCOHpXG gnw8LiZKjSXKXKXP4BDV8svJM4L RfJNSFVBBmvIREsCSj7eIL6p8ql pUMpq8g2DJunILD4yAhmvSAavhk cbdPwSNJaxoNxa9ccya0rRDh6NT vdHCtauj42YMO7z3qmaNSzDStyE zrukNYackU4NTnHBYWOGBlDDzIn NG3vHBfGD3PPMCxHXtpwLZHqZPg 9kRD7e9dmlCYqu2u5UUubPVS4bY XtDUFgv9citAPjNBpyBylrtEBwj fF4EPmWMWADOSfNPrMkJT2pHAxT K2CQEzB6VfpiNJs1Hfu2iItoYgd vzoZfmYWtDzQgyX3vbRqdqG0rVk WfOWAspF4ca3hnkPVlGEIVwBX9W SCuOE1eUTIhXDAqDBBvl8NhC0B8 RJKtFFwzq8fdWOPkOTnhc5HeUMx KCZMBZA1CGI0cvZP8BMiMCHKGM9 xObJH8YkFmkHf9R339TWAhSAJjh HVfLTizD554jB0rgH89e0tcYsvu cXB2RQpqXuyseY0avWZSYBGNYvc MQervwqVjNE7POOTNKZ7BgNJ8Eu SpwVl4I663NDNuKHOdyLXuSMunS 319XHBsYWluXGZzMjAgLiAgXHBy t7RnD9C9OLPfKBlww0mzWHOcXWr jf2AmUKhJVNVOFA5QIX1jsLY4XX qGXDJKN5jEoQV2PHM2mEs5QN24U NRhJENuhNRrIBasZ014LTvoIOAo GNQwkOZvASakzuTxuwhfGD33MLC tNEkxz0xjSNPvPIhfi6YbNUmBWH ZBSV3VIJ3akQM8KFeUECXZQNgfE YtoJIp6nMx6m3yrlGBzb5b8GAdh AOG2kYwweXGarotxoaUaAEMaJHd zBTZbC1UoV0QeftS1TALafjyySn lfbBrcg8DzgTLzPFklLJCtXRRkI RqiOIMhR4CANBFfEHRxXVV9VBis QSt2XLe6YS6UEcIqZEDbDRmgNBj 0NDJaCMo8GIhbAG4HICckTfP2BN J0YrK0TZG2GRKsFWGvUnIuHPSzR TSyPZraeRBuUZ4hgGgaCWMvRXBz ARH9XSNcjUROn6OfROMlSuAgGsY DOlxwYXJccGFyZFxzYjMwXGVwaW CZn6DxPJqsXPBgYXJyiBSSl4AxV FxwbGFpblxmczIwICBSZWNlaXZl CHQhqrSmp8JjESivmzUuobEhMQt eqAO5LQtsASTnoZOnlIXxLBIxQg Vam4nuFrVpQAEolSFtUMSsh3SlN 7P1JASxOMsxx7mzBPHoWPgka9Cc EPsFNBTKJP9DDE1gpPY3GAhJZLC FL4kGoIX2DcR8uUj6DH89YJPtDW MelCHeAVohY870rLWyt9zacFKhA PbhLjtinFWbqyG0JEcRSJEOVPvA FlInMT7uZElSQ8XPYtY6CtqtKKj 5YGp2wBorYztsboLjfHGfKwOftO 1xdBdraN3qSiQfJLWqzU9uA85oq 3IuICBJdCBpcyBccHJvdGVjdHtc GdpdoYS1JCfoNkcsjD2vdNBVNRD YPhhZWcsburGpNF5TWAOALuMUGH 94IobcFCj1YGL8OLQ2q2vfcQLhg 4o6WQrtWGH2rFKkJOQbu1wdfJLp AUhgOkguaBXvuyH0OUjMKTFNBQm MAtWkDG0eQMzTV7IKIfU9ZqdzHU s5BLR5GYZ2h5kvbCYdh0o5ZJobW JN4jGemkRArjkpizjJwPMBshoWy hEWkMV1oZRg3VTkuavQxtGYuODA bCYTgsKDteGDiaQzcHiextCC9AX ybWtfrlY9qgCGLCUUMBffKOjbcj kUyLI7MQKKPSoRMXL01DkkhZqA2 NKB2BTN7k6eszIUhj7u4QJbeSYP 9fIekXAGjrC93XEXwHUnsk1laDH WiVDsfy6ZlYDgRLZBMUA8YHK3nb RH1DCmLIVMBLJzpOPThDIznSLge IM54KRGwZJHniWYdXZfbT717YZE rUGmhRHZwHeBaNnPhTPYag8NlS4 R9WHXrJLtym3yoQPYsLHcnx5IqV VwJXECVJD9FBS7yxVV6NVnYUFUI O1uZcFS7ZGZ2qERmkGQxxRbaXhe ugyAgqLDfRkBsjJ8ImDKdb0TqF8 xwRC2pz2RoATpir8CrOvplDswir FG0CVusWfyroZ4wsIAALDBAZfoU DrpgprRhGN0ARUVQOO8JwDJ7UAJ 5fDEyfDEyfXtcZmxkcnNsdCBcJz QcuA1stDeimH9fMmBcFGVeJYG7P JGapYEjCER9NX1ggIiwUPF8JWas CIRsX9TyA5KeOOzkKHS4VJUtSmT nVZIiYS1ENvSdVICfILMjCSJ4Ct A5FNq9PXEHTqLhIqDjWVf9INw2J mSxBNd3VGr3FOgWDtK6MmE0CzB3 PAxlTLS3AJmjUSx8LLCdSDsidrY kYAnhVzziSKxlF22bsCXfWEicMz EpFDtidOhrYKOpZGH5UWCsDqUdI HpmkZWaDVDunwXkl5GgDGhuaIua XTGxNoBkaZtctG2lKeQtIJKhUtA pIUm6FSXhaL4uHw6neRPliD4bwN FnHML6EGlsHHX3GIGnzW6bbXncI 8Crr7Tvr1mouv0pNLs1WFjnIQgf op19FRH6t1nuyDJlVGomHsdmpWF vywV0EZrLYPLCDGvTYdVyJH4oOH qEE7JGNUeSPxibWGJfHFoqK0pyE 701ZOIvJITytRTgSMzgO937rAMk b2wcyHZlCMbbVzueuZTzcxO1JFa YRSRZIJpMFeXvPE8gVClUC9KNZh H6NnojRSc6ZUM7NGV2i1atyANpd 0z7ZFkpRPG2mJxfeOXqndeywvHm UYUoqkZlv4yyrs9qEBc3LAtaRAq swu48WUR1n0tqhDYqWActXdmvpQ TyxtH7WQiYKJJNUUtHZnEjVX7aF RpCF3GMXLoVMtqbENVnCMvuXYnz OY67MRXeIXKkwZBvPLrjM160c9z mmbE0FSRlIQcpy3qdTHZwTVjjq4 LwIHgFMHSWXP3YLQ2bbVK5AYpDV JULTBhqKROlBUwsMBrbBC98OUNh DDDdlVEjGHuaP520WCLbJPywYAE zMjAgIGluIHNoYXBlLiAgSXQgd2 SwFZAeQbTzMAFfAAuyuz97XBP8j 4elwWNyBXvdQwsejHNdfqV1FDnT TKQAKMmGWmUbZR2yLAhTI9EWFQk ASykrAXDbCDjuASldTR69KSJgPO LbbWTmRDnzT652iU8zsL85n6doE rtsuAZ1WQprNepcjP0gjUKWAZDF SqkPDvzgddPaQV8CUSTETX1NbSY 1GwSufUF3lFT2mWbzJhyxbzVyrE FdTlHjmR1rsZoafQ0vRoVqIOMqY FAfjIErsZPyuOzsMliwzFL9GBxm MnorlS4xyLYNFTVEKnhWIeumlcC cZE8ADHDZUmPYQR91Vax8Gzr5FQ Y1KHL9o1amrRPpo0m6AIwaMKX8g PSmTGRbpQMdoI8vqaV8GAHgzB3f WXMoj8epiFUhNYahSbiafHWuylI 0DEeNPMSMSRuXJqSjIZ5fSXvWG9 AGQlY6Oqo2Ptr9RKU0OAQ1b1gzt KGxu5q8GQovULR5xXkbfCKeqjnb czIwICAgXHBhclxwYXJkXHBhclx yOOSxINQakCLRl0HiHKFHaHSde5 FhS1noXE8nh4BmUZevp5WgTNWyA nxzCLQxo5XhT6C0ASUfHGjlq9pp IKXtWWidr6HcAUcXIJNXLT5WXZ4 nhKJ7IMaKSGHOK4pAkLOqUBhfzZ U2rEK6oNpnYmebotNdgNOrHmOfk U4ONYJ8jOQwFZTibDktqeFtj8ip pDFpVDwjVlikcQTthoE6HUwEAVN TRZgMHvDmBK2bDDhXY2MJAvD7CW I6QnO9UGn7OVv5i0pzrXGvl9i3D UibQLL4mIrabCFwebbakiZyNLM6 NPMxfZXvKDP8NR7ucQsuHDWzV8E mU0BajsB4FHGskug4IGMBFFGFQO fPQY1QDMBAEVJNRP9XVQhDXeSmT ZTiVRiyTZDmJnyaFMn1Po6oDaU1 CuTcqIA2Xu6iOIvqGXn8MNZeRlg ePMz2WE0bNvSfXvawRVm2Xf7uSp G5IhAbjTo0Dw0oKFgcWTc4PUCiB efgAYt2JU6tIhB8YrK1mOBzUWUv QfpnFrK8UHB6Zf7yGLybADkdNr0 zMnZ9HjL6mECzBAJjOryxMKi5FO L6QH2iIPQzDYwgRN7xXwJ8UUG2s MV3XGOoIZQ3XdR1WMu6RDEABLHV VEyAQ5WuHBXWLCYLBUCtOB1NYZk EIBUQAEZYI85ULQTGZARYL4XQI3 rABPbDMDFTUYZJI55USTVBJAEBN 7ZIMXFKPJWOONsDUJAUOb8DNOXH ZHGCJY1LXQhPUgXzIMmdPOZlaQQ 1tMAqkV2eZaS3YqF4KZ5dYAdqWC FkaNE4bUPzJIVuGuU1XvT7AC6sX OpzZMPrmQV6yUPcSmCzXPZkUoJ1 ZaIvJA13HMqhLRIxpTK8lOfdubs qZLtqKGv8CZg0IDNlnVTxsWzsc2 lnxkwwWWXkMKg6Otu7WRElsYNyo QrxmRHgMVbqOEZsROr8F2a8QBXg bXBhdGhlbWJlZGRlZDozODIyMFx 7MAb2YZRdbYLisBtdexs2Nge0Gn pejIznj0Plee0sYEIjO11fv0M7G gktMSnldBCgTRdbULQhmLS9vBNe DYSbFsI5XlE3SD4rVSn8RZDxwQN czDtfpDIbXKVsGHiaBSLzSKb2XW Mbn1Ptbm2dEXSllR7ySdR3BRM8R M0nS2d5RVEtjHDjbLggl1nabamv AUVmSTy5IVSih2Qmeu3gIEAnm8m thKX8CvwgZWqetAQ3LXktUYUavV D0vYUhTbCsVYTaXgE4MySmZQ4lA eq0BTQdlIMksSurpda0Fyq0Wogg oBH5ENvfUORjpNM0oOdto2YyNHC 8BEQ8GhEknVFIDENXZElJWGKKEv 3SDBPJQGOWRA2EUiPhM1GSTC3QF z8GPIWLWCMPCU5KLOjTGyInJ4LC IS4YCh8SBKCABFCSWH5CZhBgYTX XL5TYBkGLS0ryKKMACTDCGJZhVl KAPR1fEHDQUZ0ECXRBLRENP31UQ JRWLNKVL1SBEE8= [facility] Work Phone: Pathology report microscopic observation Narrative Other stain a0friJTlLXLbxGGrUJCfR9fxdbA rGTGafQIdT2MkspprZKuyML5iIB 1gyYsnqFTfvSKxYHWzKqDuu7zgd 902yWPqi6yhNYCIwclmbMh0yFtu C71wp1A9PhfbS24zgZJxFLG9XSY uTNNzdNTaYREyUHS7SNSblCRlF0 bdRHZzGG3bbdzwUUfbYAtlZEEbi CX4YRXriEMhG7UcGINmEMmbDMGr cgu3YzChEq3lyQGlqUxqICkmOMR oGJCiEIanKMJdWgAmQB6UIaBUvQ Mbd4Ygn0IaIyWgkNCvwZ7wbFtrs wYzYBEaq3QyQHUxSVFndk0= [facility] Work Phone: Pathology report relevant history Narrative j0yutRDlVDWde5nwBBXegMYqVtL wMzNcZnRuYmpcdWMxIHtccnRmMV oky5ZxM3XoYsNpRTfnpgTzQDExE fpvmzfkVQPgQGW7jcEoKDEjOHph MVSnHAetBd3piYVevHowFnAjJOI ns4rrcfUUMNdiYTHIYAu4s6dtVW AhNqR9nBHfIKlmL6dqeeFufVDaA 3Htx7JhJUy2fC15JFCjkS2vfWUy ZEqnqiPlMiS1WGphMMTbGoA2ODX kbXWxQCIdZ8fqKMToIBuoXFYuGE bjgSSaFUH5tKqjy3Y4mRGwnNYeg ItiSvZyMxPvJwDCw9MuQYf3pPqy Q0FxJIJyZbW9dPQiQNDiYVhpJHY tMCDwubH5yA71PRnsybF1tFIny1 Jct36aj877tW1vmDZaZLA9ZQRuS GQciVGhNOXvFBN0HTPlaCTpD0vr XNEuIE9ehratYAnaPAgsASAyjKZ 6EZJszADxY5YxUZHaDTjeZDWwlo w8LwIcCv3njXKduJgtFUtoq2rpd 3ttsVZwFns7TRZuTbGtKlgbBWbs m1Xtu1ikAOMcll2iHMM1mMVhkOo fo3R7mQAjKAAxbRMbfjWxVFMmMi N5NAfnIT3fre18PDEgFXY3ql0jq CBiqZkmnaXgwWQeBQjmY6CbBDWx a503BRLiD5RlQEFpj2R3ylLvWoQ iMQAqtWY9pnY0ZEQzWSs0yEHbvb C6gjQvuDMhX1ieuD4tCWEqIP5rs ugzg8suMVyvGYfkEDCdsSN3olY0 XYKzoNFyS9WzlB9eAXFwDCztTSS jdeb5MbChZe3enKUewRpiPZxbXy twYWdlXHBnbmNvbnRccGduZGVjX HBsYWluXHBsYWluXGYwXGZzMjRc cGFyZFxwbGFpblxmMVxmczIwXGx qvjleULUsCWlqD9vwObKzMVVinS acEClrj6BkXUXqYJArFmszciCaA CFuZ370unKcycAKjHXdhz4vwZQ2 WS6cz0AvELDvZN2wKLEcF3BvnDF rwdDtDWrxhjacuhWtZfWjc1lwNY xwYXIgXHBhclxxbFxwbGFpblxmM SupapM2LLUrAYqcLVHrQYYaQqJk bGFuZzEwMzNcaGljaFxmMVxkYmN cNQAdWQdeE1ioMeQiD2YuDKVvGc QiRXDvtlQYTkCsYIk9NBTwZPpqY JBhL74jtGGbtWhgfxVXs02nOO92 fmlnTGulXaWuWQ08fRIxQMJuWOs ea3Jbfhovg7BgtUHdqNMfYOHoLS LrAM8mlsdhgqAgKMLvI82fQbblH KtrCCHiT96byFFltPO1UDWxjMIj CQEhcy9fRNPsJBjmHnlgHy41xKt xCNWDvSA7b0KazNnnlL3acXRnNm 4viSLylX4sSjh1IDZxgHhyi7FdY FcbRAZqFgjlUWwvCgTZPEdcq046 BGphFcHqB6Kjk7DuYXNPi0P5FVQ nb7MkcYRjWFJbQNZdiVOfJE9wzd RlvCh8QPwnrkLuNRypvAYuxATdV UCytiLogVDgETsRTiNhCTl8UGHq KwizODAzO40gvZCojWpetuLLo46 oPS81ypdcQIbvPmGxZC11qOBhXJ YzAFhdq5Jjdfndb3IuhLXbhSCiY ILrWKWzWV6dohdobcHxFFWdB30p QyyhTKdsTSRmY11ouADdxTE4NCZ ogFEtLVIxwu8gAXPnKTigHralBd 89rXxsNOTEiLB6d0GnsTzrsB7eb FTgEf9ibZHlbB7cFpr8ZFNxbHiy y3HqPWjjGHCvAmcnCJxxKvZLIEr sp335YKalJhQuHDQbFZLzLPNkj6 FqkhbteupuMEHmA2KkR3duCJ6eN 3PeMWG9rMKuQcHgPKCwiSLbaJQv dWxlXHBhciBccGFyIApEMjQtMDc 0YDEmD2isXZMtA78jtAPieDmdlr TSn71gEY97kqaeCMhePsGdFR60l UMaESJhBNrln2EigiomX8UCJTV/ MLElaeENtAXimgMBXIXkrC4qMEe yua0Xax91AAGqzNAoTNTpwN9atu LwTpWwPOJhndVLQWCqsCF9kVEBW XL2FYIftOPfzfIgIEkmoD6pWAZk k2dmJ0xaBLTjgb6diTzqEHMuwCM rPQVyy8P1MBlkjDQhEMJaufHmvy lqZyDnqH4pBmATKDQ7COFpmUVwa OYdqJZtAHYzq5NuMGRpxmQVxXWr vX3klzIUUovqT8NczmB9GEKmFFD xs0toXVQzCEQzeZGzMIDbqkCywW TrCAqKYvCqKJq9AXOnGHnrTEEuH 05ykUQhvOhxcjWTg04rKC13vtfl VXhkXcUnGB16iMAbYGVnKNqeb5P sjuqoWwPMHphoBIFrT7okG9pgKR IdW7vavnZLDSClWd6/OiAgXHBhc kSYt19gLA39kcwrFJdjGTHsYQSx yAQnsQgbTXOmDxEEk3F0sF2pVBz dy0YdjES4zQ5bq7u9DOuch0OdXU ijlr7yePzbPTN1hCCmkEEsJBFoc gFZgB6mjN7rPPLbJ0svgmboIMFx dCBVcHBlciBCYWNrXHBhciBTcGV lbW6icrTPPgrnB8BswcM0XKJjkg mzr6oyUFYpGGVugoIxuABmBBrfw GFpblxmMVxmczIwXGxhbmcxMDMz HZsgB3efPlQiRRTsiKjcJKphb8S oXGYxXGZzMjBccGFyfX0= [facility] Work Phone: [facility] [facility] Work Phone: Lesion biopsyon 08-31-2023 Type of biopsy: matson ential Informed consent: discussed and consent obtained Timeout: patient name, date of , surgical site, and procedure verified Procedure prep: Patient was prepped and draped Anesthesia: the lesion was anesthetized in a standard fashion Anesthetic: 1% lidocaine w/ epinephrine 1-100,000 local infiltration Instrument used: DermaBlade Hemostasis achieved with: aluminum chloride Outcome: patient tolerated procedure well Post-procedure details: sterile dressing applied and wound care instructions given Dressing type: petrolatum and bandage [facility] Work Phone: [facility] Work Phone: Type of biopsy: matson ential Informed consent: discussed and consent obtained Timeout: patient name, date of , surgical site, and procedure verified Procedure prep: Patient was prepped and draped Anesthesia: the lesion was anesthetized in a standard fashion Anesthetic: 1% lidocaine w/ epinephrine 1-100,000 local infiltration Instrument used: DermaBlade Hemostasis achieved with: aluminum chloride Outcome: patient tolerated procedure well Post-procedure details: sterile dressing applied and wound care instructions given Dressing type: petrolatum and bandage [facility] Work Phone: [facility] Work Phone: Type of biopsy: matson ential Informed consent: discussed and consent obtained Timeout: patient name, date of , surgical site, and procedure verified Procedure prep: Patient was prepped and draped Anesthesia: the lesion was anesthetized in a standard fashion Anesthetic: 1% lidocaine w/ epinephrine 1-100,000 local infiltration Instrument used: DermaBlade Hemostasis achieved with: aluminum chloride Outcome: patient tolerated procedure well Post-procedure details: sterile dressing applied and wound care instructions given Dressing type: petrolatum and bandage [facility] Work Phone: [facility] Work Phone: Type of biopsy: matson ential Informed consent: discussed and consent obtained Timeout: patient name, date of , surgical site, and procedure verified Procedure prep: Patient was prepped and draped Anesthesia: the lesion was anesthetized in a standard fashion Anesthetic: 1% lidocaine w/ epinephrine 1-100,000 local infiltration Instrument used: DermaBlade Hemostasis achieved with: aluminum chloride Outcome: patient tolerated procedure well Post-procedure details: sterile dressing applied and wound care instructions given Dressing type: petrolatum and bandage [facility] Work Phone: [facility] Work Phone: Skin biopsyon 03-06-2023 Type of biopsy: tangential [facility] Work Phone: [facility] Work Phone: ACETAMINOPHEN LEVELon 2017 Acetaminophen mass conc <2 Abnormal 10-30 [facility] Comment on above: Result Comment: Ther apeutic Range:10.00-30.00 ug/mL Performed By: #### L AB17, LAB62, LAB44 ####[facility] [id number] [address] ARTERIAL BLOOD GASESon 01-07 ARTERIAL BLOOD GASES Normal [facility] Comment on above: Result Comment: The term oxygen saturation has changed to FO2HB per CAP standard. The measurement itself has not changed. Performed By: #### L AB17, LAB62, LAB44 ####[facility] [id number] [place], [place] [address] BASE EXCESS -7.8 mEq/L Abnormal 0.0-2.0 [facility] Comment on above: Performed By: #### Ron MOISE, LAB62, LAB44 ####[facility] [id number] [address] CARBOXYHEMOGLOBIN 0.8 % Normal 0.5-2.0 [facility] Comment on above: Result Comment: Carb oxyhemoglobin Reference Range: Non Smokers: <2% Smokers: <8% Toxic: >20% Performed By: #### Ron MOISE, LAB62, LAB44 ####[facility] [id number] [place] [address] FO2HB 77.5 % Abnormal 94.7-97.0 [facility] Comment on above: Performed By: #### Ron MOISE, LAB62, LAB44 ####[facility] [id number] [place] [address] HCO3 ARTERIAL 18.2 mEq/L Abnormal 22.0-26.0 [facility] Comment on above: Performed By: #### Ron MOISE, LAB62, LAB44 ####[address] Hemoglobin mass conc (Bld) 15.1 g/dL Normal 11.0-16.0 g/dL [facility] Comment on above: Performed By: #### Ron MOISE, LAB62, LAB44 ####[facility] [id number] [place] [address] METHEMOGLOBIN 0.0 % Normal 0.0-2.0 [facility] Comment on above: Performed By: #### Ron MOISE LAB62, LAB44 ####[facility] [id number] [place] [address] PCO2, ARTERIAL 39 mmHg Normal 32-45 [facility] Comment on above: Performed By: #### Ron MOISE, LAB62, LAB44 ####[facility] [id number] [place] [address] pH (Bld) 7.29 [pH] Abnormal 7.35-7.45 [facility] Comment on above: Performed By: #### Ron MOISE, LAB62, LAB44 ####[facility] [id number] [place] [address] PO2, ARTERIAL 49 mmHg Abnormal 96-104 [facility] Comment on above: Performed By: #### Ron AB17, LAB62, LAB44 ####[facility] [id number] [place] [address] [place] RHB 21.7 % Abnormal 0.0-5.0 [facility] Comment on above: Performed By: #### Ron AB17, LAB62, LAB44 ####[facility] [id number] [address] CBC W/DIFFon 01-07-2018 Basophils/100 WBC Auto (Bld) 0.3 % Normal [facility] Comment on above: Performed By: #### Ron ABFelix, LAB62, LAB44 ####[facility] [id number] [address] Body surface area Derived from formula 4.6 K/uL Normal 2.0-7.3 [facility] Comment on above: Performed By: #### Ron MOISE, LAB62, LAB44 ####[facility] [id number] [address] Body surface area Derived from formula 0.0 K/uL Normal 0.0-0.1 [facility] Comment on above: Performed By: #### Ron MOISE, LAB62, LAB44 ####[facility] [id number] [address] Eosinophils Auto #/vol (Bld) 0.1 10*3/uL Normal 0.0-0.4 [facility] Comment on above: Performed By: #### Ron ABFelix, LAB62, LAB44 ####[facility] [id number] [address] Eosinophils Auto #/vol (Bld) 0.9 10*3/uL Normal [facility] Comment on above: Performed By: #### Ron ABFelix, LAB62, LAB44 ####[facility] [id number] [address] Erythrocyte distribution width Auto Ratio (RBC) 13.8 % Normal 11.7-15.2 [facility] Comment on above: Performed By: #### Ron AB17, LAB62, LAB44 ####[facility] [id number] [address] Hematocrit Auto Volume Fraction (Bld) 43.2 % Normal 39.0-51.5 [facility] Comment on above: Performed By: #### Ron ABFelix, LAB62, LAB44 ####[facility] [id number] [address] Hemoglobin mass conc (Bld) 14.4 g/dL Normal 13.1-17.6 [facility] Comment on above: Performed By: #### Ron ABFelix, LAB62, LAB44 ####[address] Lymphocytes Auto #/vol (Bld) 1.5 10*3/uL Normal 0.8-3.6 [facility] Comment on above: Performed By: #### Ron MOISE, LAB62, LAB44 ####[address] Lymphocytes Auto #/vol (Bld) 22.8 10*3/uL Normal [facility] Comment on above: Performed By: #### Ron MOISE, LAB62, LAB44 ####[address] MCH Auto Entitic mass (RBC) 31.6 pg Normal 28.4-33.4 [facility] Comment on above: Performed By: #### Ron MOISE, LAB62, LAB44 ####[address] MCHC Auto mass conc (RBC) 33.4 g/dL Normal 31.1-37.0 [facility] Comment on above: Performed By: #### Ron MOISE, LAB62, LAB44 ####[address] MCV Auto Entitic volume (RBC) 94.6 fL Normal 85.0-99.0 [facility] Comment on above: Performed By: #### Ron ABFelix, LAB62, LAB44 ####[address] Monocytes Auto #/vol (Bld) 4.2 10*3/uL Normal [facility] Comment on above: Performed By: #### Ron ABFelix, LAB62, LAB44 ####[address] Monocytes Auto #/vol (Bld) 0.3 10*3/uL Normal 0.3-0.9 [facility] Comment on above: Performed By: #### Ron MOISE LABMaría Elena, LAB44 ####[facility] [id number] [address] Neutrophils Auto #/vol (Bld) 71.8 10*3/uL Normal [facility] Comment on above: Performed By: #### Ron MOISE LABMaría Elena, LAB44 ####[facility] [id number] [place] [address] Platelets Auto #/vol (Bld) 214 10*3/uL Normal 154-393 [facility] Comment on above: Performed By: #### ARLEEN HARRIS, LAB44 ####[address] RBC Auto #/vol (Bld) 4.57 10*6/uL Normal 4.30-5.86 [facility] Comment on above: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 [facility] [[email or web address]] Glucose mass conc 304 mg/dL Abnormal 74-106 [facility] Comment on above: Performed By: #### Ron MOISE, LAB62, LAB44 ####[facility] [id number] [place] [address] [facility] [[email or web address]] Potassium molar conc 3.6 mmol/L Normal 3.5-5.1 [facility] Comment on above: Performed By: #### Ron MOISE, LAB62, LAB44 ####[facility] [id number] [place] [address] [facility] [[email or web address]] Protein mass conc 8.0 g/dL Normal 6.4-8.2 [facility] Comment on above: Performed By: #### Ron MOISE, LAB62, LAB44 ####[facility] [id number] [place] [address] [facility] [[email or web address]] Sodium molar conc 133 mmol/L Abnormal 136-145 [facility] Comment on above: Performed By: #### Ron MOISE, LAB62, LAB44 ####[facility] [id number] Urea nitrogen mass conc (Bld) 9 mg/dL Normal 7-18 [facility] Comment on above: Performed By: #### L AB17, LAB62, LAB44 ####[facility] [id number] [place] [id number] [facility] [[email or web address]] Consultson 10-04-2017 Consults Encounter Department : [facility] EMERGENCY DEPTConsults by DIANA Antoine at 10/04/2017 5:20 PMAuthor: MINA Antoineervice: (none)Author Type: RIMMA SpecialistFiled: 10/04/2017 7:34 PMDate of Service: 10/04/2017 5:20 PMStatus: SignedEditor: DIANA Antoine (RIMMA Specialist) Consult Orders: 1. Behavioral Health Assessment Consult [[id number]] ordered by Ana María Brennan MD at10/04/17 0826Name: Ciro HawkinsDOB: 1965[facility] [id number] [place] [id number]: [id number] Information:52 y/o White male brought to [facility] ED by EMS for AoD and possibleSI attempt OD.Presenting Problem:Suicide Attempt OD, AoD, DepressionPresenting Problem Narrative: Pt brought to [facility] ED and placed on hold by EMS after being found inhis g/f's back yard intoxicated and having possibly taken too much of his diabetes medication. [facility] ED report, pt was non compliant w/ medical treatment in relation to his diabetes for some time,refusing any care. Pt was alert, oriented X4, agitated, directable, and guarded during assessment. He presented w/ appropriate affect and "tired" mood. Pt made minimal to no eye contact duringassessment, instead staring at the wall or keeping his eyes closed. He denied active SI/HI/AVH,advising he was drunk last night and upset about breaking up w/ his [place]. Pt advised he had a return flight to [place] scheduled for 18:00 this evening, but would bemissing it due to his still being in the hospital. He claimed he was too chicken to do anythinglike that to myself" and never had any specific plan when he was making the statements. He deniedtrying to take his diabetes medication in an attempt to kill himself, advising he was drunk andconfused when the authorities arrived. Pt endorsed drinking "a couple beers" daily and marijuanaon occasion. He denied hx of MH and/or AoD treatment, advising he was not connected w/ providersin [place] currently either. Pt claimed to have a strong support system of family and friends andfeeling safe at his home in [place]. He requested to be discharged in order to get his affairs inorder to return home.[facility] consulted w/ Betsy Morales CNP, who advised pt did not meet criteria for inpatientpsychiatric admission. Dr. Brennan was in agreement w/ YUNI Morales's disposition. Pt was dischargedw/out incident and encouraged to follow up w/ outpatient MH providers upon his return home.ReferralSource:Referra l Source: Law Enforcement/MedicLaw Enforcement/ Medic: Medic (Comment) ([facility] FD )Psychiatric Directive:None knownPrimary Care MD:NoneCustody/Guardianship :Guardian Type: NonePsychosocial Data:Marital Status: DivorcedWho do you live with?: Alone (Pt currently resident of [place], was in area visiting . )Family of Origin: BiologicalSexual orientation: HeterosexualSource of Emotional Support: Family and friends in [place]CMarital/relationship problems: Yes (Comment) (Pt reported breaking up w/ G/F yesterday evening. )Number of Children (ages): NoneParent/child conflict: NoParenting skill problems: NoService in the : NoHighest academic level completed: High School DiplomaCulture/Specific Needs:Needs Expressed: Emotional, PhysicalDomestic Abuse Assessment: Current Abuse: Patient DeniesPrevious Mental Health Treatment:Current Outpatient Treatment?: NoPast Inpatient Treatment?: NoPast Outpatient Treatment?: NoPsych History:HistoryAlcohol Use -1.2 oz/week -2 Cans of beer per weekComment: DailyFamily HistoryProblemRelationAge of Onset -Alcohol abuseMaternal Uncle -Drug abuseMaternal UncleReviewed:The history section was last reviewed by DIANA Antoine on Oct 04, 2017.Chemical Abuse Screen:History of Withdrawal Symptoms: Denies past symptomsSubstance Abuse Treatment Hx: Denies past historyAny family history of substance abuse problems?: Maternal Uncle- alcohol and substance abuseUsed chemicals (other than as prescribed) in the past 12 Months?: YesHave you tried to cut down or control your use of alcohol or other drugs?: NoDo you feel yumi when questioned about your substance abuse?: NoDo you feel guilty about your substance abuse?: NoDo you use substances in the morning?: NoHave alcohol/drugs caused probelms?: NoWas toxicology done?: NoChemical 1:Chemical Used: MarijuanaAmount/Frequency: "couple hits"/ occasionallyRoute: SmokedAge First Used:Last Use: 1 month agoChemical 2:Chemical Used:Amount/Frequency:Route :Age First Used:Last Use:Chemical 3:Chemical Used:Amount/Frequency:Route :Age First Used:Last Use:Chemical 4:Chemical Used:Amount/Frequency:Route :Age First Used:Last Use:Affect/Mood:Affect: AppropriateMood: Other (Comment) ("Tired" )Speech:Pace: NormalVolume: NormalForm: LogicalClarity: ClearContent: NormalOrientation/Concentra tion/Memory:Orientation Level: Oriented [id number]: AlertMemory: IntactJudgment: FairInsight: DenialEstimated Intelligence: AverageThought Content:Content: None ReportedPerception:Hallucin ations: NoneBehavior:Eye Contact: Avoidance (Pt stared at the wall or kept his eyes closed for entirety of assessment. )Exhibited Behavior: Agitation, Directable, GuardedAppearance/Hygiene: UnremarkableAppetite: NormalSleep:Sleep Pattern: Difficulty falling asleepAverage Number of Sleep Hours: 7-8 hoursUse of Sleep Aids: Pt deniedLethality AssessmentSuicidal Ideation:Suicidal Ideation: None (No Risk)Means Accessibility (Harm): None (No Risk)Lethality of Means (Harm): None (No Risk)Suicidal History: Ideation/Threat(s) (Low Risk)Lethality of Attempts: None (No Risk)Last Attempt: None (No Risk)Family History: None (No Risk)Plan to Harm Others:Plan to Harm Others: None (No Risk)Assault History: None (No Risk)Lethality of Assaults: None (No Risk)Last Assault: None (No Risk)Family History: None(No Risk)Physical Abuse History:Physical Abuse History: None (No Risk)Sexual Abuse History: None (No Risk)Neglect History: None (No Risk)Exploitation: None (No Risk)Impulsivity: Occasional (Low Risk)Stress: None (No Risk)Loss: > 2 Years (Low Risk)Physical Condition: Fair (Mod Risk)Financial Stress: Moderate (Mod Risk)Living Arrangements: Alone/Isolated (High Risk)Male Age Suicide: 50+ (High Risk)Male Age Homicide: 13-16/30-60 (Mod Risk)Overall Risk Level (No Risk): Both Self and OthersLethality Assessment Information:Lethality Detail: Pt denied SI/HI/AVH. Claimed only past SI w/ no plan. Pt reported no hx of MHtreatment or diagnosis. He claimed to feel safe and supported residing in [place], requested dischargein order to return to his home.Physician Contact:Diagnosis Provided By:: RIMMA WorkerClinical Diagnosis: F19.94 Substance induced mood disorderSubstance Use Diagnosis: F10.10 Alcohol use disorder, mildPersonality Disorders: deferredPsychosocial Stressors: Z72.9 Problem related to lifestyle, Z63.0 Relational distress from partnerPhysician contacted?: YesPhysician Name:: Dr. Salguero of medical clearance:: [id number] Contact Comments:: Agreed pt appropriate for discharge.Psychiatrist contacted?: YesPsychiatrist Name:: Betsy Morales CNPTime of Contact: [id number] Contact Comments:: Advised pt not appropriate for inpatient psychiatric care,recommended discharge to follow up in [place].Patient Active Problem ListDiagnosis -Overdose, intentional self-harm, initial encounter ([facility])Insurance Information/Pre-Auth:Self Pay?: YesDisposition:Perception of Needs:: Pt advised he would like to be discharged in order to return to [place].Patient Disposition: DischargedPatient Discharged: YesDischarge Instructions: See ExitCareDischarge Follow up, specify:: Pt to follow up w/ providers in his area of [place].Admit/Transfer: No [facility] ED Provider Noteson 10-05-19 18 Protein mass conc Encounter Department : [facility] EMERGENCY DEPTED Provider Notes by Ana María Brennan MD at 10/04/2017 6:40 AMAuthor: JODY Shepardervice: Emergency MedicineAuthor Type: ED PhysicianFiled: 10/04/2017 5:02 PMDate of Service: 10/04/2017 6:40 AMStatus: AddendumEditor: Ana María Brennan MD (ED Physician)Related Notes: Original Note by Ana María Brennan MD (ED Physician) filed at 10/04/2017 7:23AMPatient was initially seen, evaluated, worked up and turned over to me by the overnight physicianDr. Nassar. Apparently patient was intoxicated, drinking alcohol and with thoughts of harminghimself without any trauma, and came in because he was having suicidal thoughts, and took unknownmedications however he is a diabetic and might have taken his diabetes medication, patient refusedto tell anyone what he took. Otherwise without any other signs or symptoms. Otherwise withalcohol intoxication as well, however did not have any trauma did not fall, and did not hit hishead, has no other injuries, and was walking around the emergency department going to the bathroom. And he did state that he took unknown amount and unknown medications with an attempt to harmhimself. Otherwise on my reexamination, appears intoxicated, and however answering and followingcommands appropriately, neurologically intact, no deficits other than intoxication. At this timewe will keep this patient in the Er for further observation and evaluation. Patient was placed jad 72 hour hold. At this time no injuries, no trauma, attempted suicide, and neurologically appearsintact, we will keep this patient for observation and evaluation and will recheck his alcohol leveland will be reevaluated by crisis. Patient is refusing to give urine.Patient then refused an IV, he stated that he does not needed, and is adamant that he does not wantit, multiple discussion with him and he adamantly refused.[facility] sick crisis evaluationPatient then sober up and no further issue, medically unremarkable at this time, and patientrecanted his story, never wanted to harm himself, he was just intoxicated, and at this time patienthas a plane to catch to go back to [place]. And at this time [facility] Patient contracted for safetyThe patient was brought in for psychiatric evaluation. The patient reports no suicidal or homicidalideation, at this time have seen and evaluated the patient and will proceed with the followingworkup including alcohol level, urine drug screen, I will also obtain a crisis social workerevaluation for behavior health medicine to assess the patient further.The patient was seen and evaluated by [facility] crisis social work program coordinator, DIANA Hooper, who hasextensively worked up and evaluated the patient. I have personally discussed with the social workerafter her extensive evaluation of the patient and at this time the social work program coordinator has assured methat the patient is in no danger to themselves, no current suicidal or homicidal ideation. There jorgito safety plan in place. The patient has received outpatient referral and further treatment frompsychiatry and behavior [facility]. At this time based on behavior health extensive workup andevaluation of this patient they have recommend that the patient to be discharge and has deemed thepatient safe to be discharged from the emergency department. Based on the [facility] and a hoe worker at this time I will discharge the patientPatient was seen in reevaluated and has denied suicidal and homicidal ideationDischarge instruction gone over with the patient and the patient verbalizes good understandingcomplianceMy typical discussion concerning the patient's chief complaint, diagnosis differential diagnosis,medication usage, medication interactions, safety, followup, and criteria for return have beengiven to the patient and the patient has given a confirmed understanding of the above discussion.The patient is aware that if they cannot followup concerning this issue that they need to return tot emergency department for a repeat examination.Ana María Brennan MD10/04/17 0723An Celio Brennan MD10/04/17 1702 [facility] Protein mass conc Encounter Department : [facility] EMERGENCY DEPTED Provider Notes by Oscar Nassar MD at 10/04/2017 4:39 AMAuthor: JODY Huffmanervice: Emergency MedicineAuthor Type: ED PhysicianFiled: 10/04/2017 6:01 AMDate of Service: 10/04/2017 4:39 AMStatus: SignedEditor: Oscar Nassar MD (ED Physician)CHIEF COMPLAINTChief ComplaintPatient presents with -Overdose, IntentionalHPIHistory obtained from Nohemi Ross is a 52 y.o. male who presents to the emergency department after reported over thepenis.EMS states that they received a call from him taking some diabetic medications.EMS reports to me that they asked him whether or not he had taken insulin, they were unable togather this information from him. They report that he refused an IV and fingerstick. Upon arrivalto the department he moved over to the stretcher himself, his plan of care glucose was noted to be 272. He endorsed drinking alcohol, he did smell of alcohol. He was intermittently noncompliantbut easily redirectable. He reported that he had to have a bowel movement. He denies any painhowever review of systems was somewhat limited given the patient's inebriated state.REVIEW OF SYSTEMSReview of SystemsUnable to perform ROS: OtherI have reviewed the nurse's notes, nurse's vital signs, and the nursing review of systems. Allsystems are negative except as noted:PAST MEDICAL HISTORYPast Medical History:DiagnosisDate -Diabetes mellitus (HCC) -HypertensionFAMILY HISTORYNo family history on file.SOCIAL HISTORYSocial HistorySocial History -Marital status:N/ASpouse name:N/A -Number of children:N/A -Years of education:N/ASocial History Main Topics -Smoking status:Never Smoker -Smokeless tobacco:Current UserTypes:Chew -Alcohol useYesComment: occasional -Drug use:No -Sexual activity:Not AskedOther TopicsConcern -NoneSocial History Narrative -NoneSURGICAL HISTORYHistory reviewed. No pertinent surgical history.CURRENT MEDICATIONSNo current facility-administered medications for this encounter.No current outpatient prescriptions on file.ALLERGIESNo Known AllergiesPHYSICAL EXAMVITAL SIGNS: BP 103/61 Pulse 93 Temp 97.2 ?F (36.2 ?C) Resp 13 Wt (!) 247 lb 9 oz(112.3 kg) SpO2 95%Constitutional: Well developed, Well nourished, appears inebriated, lying on stretcher, milddistressHEENT: Normocephalic, Atraumatic, Bilateral external ears normal, Oropharynx moist, No oralexudates, Nose normal.Eyes: PERRLA, EOMI, Conjunctiva normal, No discharge. No scleral icterus.Neck: Normal range of motion.Cardiovascular: Tachycardic, Normal rhythm, No audible murmurs, gallops or rubs.Thorax AND Lungs: Normal breath sounds, No respiratory distress, No wheezing,Abdomen: Soft, No tenderness diffusely without guarding, rigidity or peritoneal signs, No masses,No pulsatile masses, not distended, bowel sounds normalSkin: Warm, Dry, No erythema, No rash.Extremities: No edema, No tenderness, No cyanosis, No clubbing.Musculoskeletal: Good range of motion in all major joints. No tenderness to palpation or majordeformities noted.Neurologic: Somnolent, able to provide, date of , social security number, place, Normal motorfunction, Normal sensory function, No focal deficits noted.Psychiatric: Affect flat, depressed moodEKGTime: 0440EKG 100, sinus tachycardia, normal axis, no significant ST abnormality noted in the inferior,lateral, anterior posterior leads.CO 149, QTc 456, no prior EKG for comparison.RADIOLOGY/PROCED URESNo orders to displayI visualized the films and read the report.LABSLabs ReviewedSERUM TOX SCREEN - Abnormal; Notable for the following: ResultValueRef RangeStatusAcetaminophen Level<2 (*)10 - 30 ug/lTHssknEqidsnh107 (*)<=3 mg/dLFinalSalicylate<1.7 (*)3.0 - 20.0 mg/dlFinalAll other components within normal limitsNarrative:Salicylate Therapeutic Range: 20-25 mg/dLAcetaminophen Therapeutic Range:10.00-30.00 ug/mLCOMPREHENSIVE METABOLIC PANEL - Abnormal; Notable for the following:Abgcov832 (*)136 - 145 mmol/JCmhsqWvvybgiz52 (*)98 - 107 mmol/YHfousLvoxuml530 (*)74 - 106 mg/dLFinalAG Ratio0.9 (*)1.0 - 2.9ResyqSayoeoqq4.3 (*)2.6 - 4.2 g/dLFinalAll other components within normal limitsACETONE,KETONES - Abnormal; Notable for the following:Beta-Hydroxybutyr ate0.54 (*)0.02 - 0.27 mmol/LFinalAll other components within normal limitsGLUCOSE POC RESULTS - Abnormal; Notable for the following:POC Mdezhno037 (*)74 - 106 mg/dLFinalAll other components within normal limitsNarrative:Point of care test performed at bedside.CK - NormalCBC W/DIFFUNIVERSAL DRUG SCREEN-MATERNAL/NEONATECOUR SE AND MEDICAL DECISION MAKINGPertinent Labs AND Imaging studies reviewed. (See chart for details)The patient was thoroughly examined in the emergency department. Patient presents with departmentafter questionable overdose. He reportedly contacted EMS stating that he had taken his diabeticmedication. He would not provide whether or not he took insulin, his plan of care glucose onarrival to the department was noted to be 272. He did appear to be inebriated, he was easily redirectable. He had no focal neurologicdeficit on exam. He underwent laboratory workup which revealed a serum glucose of 304, betahydroxybutyrate of 0.54, ethanol level of 353, repeat which is pending at the time of dictation,unremarkable CBC. Given his mental state and concern for possible suicide attempt he was placed jad 72 hour hold. At this point in time patient's care will be turned over to the morning physicianwho will follow-up on the patient's final disposition, he is awaiting further evaluation by thesocial worker. He has been continually reevaluated throughout his stay, he is stable upon my lastevaluation.FINAL IMPRESSION1.Hyperglycemia2. Alcoholic intoxication without complication (HCC)3.Depression, unspecified depression typePlease note that this chart was generated using Openet dictation software. Although every effortwas made to ensure the accuracy of this automated care transitions nurse, some errors in care transitions nurse mayhave occurred.Oscar Nassar MD10/04/17 0601 [facility] EKG STANDARD 12 LEADon 10-04 Heart rate RR Interval= 600 msP R Interval= 149 msQRSD Interval= 104 msQT Interval= 353 msQTc Interval= 456 msHeart Rate= 100 msP [place]= 68 degQRS [place]= 48 degT Wave [place]= 0 degI: 40 [place]= 27 degT: 40 [place]= 65 degST [place]= -29 degSinus tachycardia Electronically Signed by: Flaco Butts) 04-Oct-2017 20:30:06 Date and Time of Study: 2017-10-04 04:40:30 [facility] ETHANOLon 10-04-2017 Ethanol mass conc Normal [facility] Comment on above: Result Comment: Resu lts of this test should always be interpreted in conjunction with the patient's medical history, clinical presentation and other findings.The pharmacological response to blood alcohol levels may vary from individual to individual. The fatal concentration has been reported to be greater than 400 mg/dL. Performed By: #### L [id number] ####[facility] [id number] [place], [place] [phone] Ethanol mass conc 133 mg/dL Abnormal <=3 [facility] Comment on above: Performed By: #### L [id number] ####[facility] [id number] [place], [place] [phone] Ethanol mass conc 216 mg/dL Abnormal <=3 [facility] Comment on above: Performed By: #### L [id number] ####[id number] [place], [place] [phone] Ethanol mass conc Normal [facility] Comment on above: Result Comment: Resu lts of this test should always be interpreted in conjunction with the patient's medical history, clinical presentation and other findings.The pharmacological response to blood alcohol levels may vary from individual to individual. The fatal concentration has been reported to be greater than 400 mg/dL. Performed By: #### L [id number] ####[facility] [id number] [place] [address] [phone] SERUM TOX SCREENon 8 Acetaminophen mass conc <2 Abnormal 02-19 [facility] Comment on above: Performed By: #### L [id number] ####[facility] [id number] [place] [id number] [place] [address] [phone] Ethanol mass conc 353 mg/dL Abnormal <=3 [facility] Comment on above: Performed By: #### L [id number] ####[phone] SALICYLATE ([facility]/IRS) <1.7 Abnormal 3.0-20.0 [facility] Comment on above: Performed By: #### L [id number] ####[phone] SERUM TOX SCREEN Normal [facility] Comment on above: Result Comment: Sali cylate Therapeutic Range: 20-25 mg/dLAcetaminophen Therapeutic Range:10.00-30.00 ug/mL Performed By: #### L [id number] ####[phone] UNIVERSAL DRUG SCREEN-MATERN AL/NEONATEon 10-04-2017 AMPHETAMINE METAB Negative Normal Negative [facility] Comment on above: Performed By: #### L [id number] ####[place] [phone] BARBITURATES Negative Normal Negative [facility] Comment on above: Performed By: #### L [id number] ####[phone] Benzodiazepines Screen Ql (U) Negative Normal Negative [facility] Comment on above: Performed By: #### L [id number] ####[phone] BUPRENORPHINE URINE Negative Normal Negative [facility] Comment on above: Performed By: #### L [id number] ####[place] [id number] [phone] CANNABINOID METAB Positive Abnormal Negative [facility] Comment on above: Performed By: #### L [id number] ####[place] [id number] [phone] Cocaine Ql (U) Negative Normal Negative [facility] Comment on above: Performed By: #### L [id number] ####[phone] METHADONE, URINE QUAL Negative Normal Negative [facility] Comment on above: Performed By: #### L [id number] ####[phone] OPIATE METAB Negative Normal Negative [facility] Comment on above: Performed By: #### L [id number] ####[place] [phone] OXYCODONE URINE Negative Normal Negative [facility] Comment on above: Performed By: #### L [id number] ####[id number] [place], [place] [phone] PHENCYCLIDINE METAB Negative Normal Negative [facility] Comment on above: Performed By: #### L [id number] ####[place] [phone] UNIVERSAL DRUG SCREEN-MATERNAL/NEON ATE [facility] Comment on above: Result Comment: Drug Screen contains testing for the following: Amphetamine, Barbituates, Benzodiazephine, Cocaine, Opiates, THC, PCP, Methadone, Oxycodone, and Buprenorphine.Drug Screen Cut-Off Value: Opiates: 300 ng/ml Amphetamines: 300 ng/ml Barbiturates: 200 ng/ml Benzodiazepine: 200 ng/ml THC: 50 ng/ml Cocaine: 300 ng/ml Buprenoprphine: 5 ng/ml Methadone: 300 ng/ml Oxycodone: 100 ng/ml Phencyclidine (PCP): 25 ng/nl*Results are unconfirmed screening results and should only be used for medical purposes. Performed By: #### L [id number] ####[facility] [address] [place] [address] [facility] [address]SE[address] [place], [place] [phone] Vital Signs Date Time Vital Sign Value Performing Clinician Facility 02-15-2025 22:31-0400 Diastolic Blood Pressure Non-Invasive 90 mm[Hg] DR CHRISTINA YANG DO [address] [place] [id number] 02-15-2025 22:31-0400 Heart rate 90 /min DR CHRISTINA YANG DO [address] [place] [address] 02-15-2025 22:31-0400 Respiratory rate 18 /min DR CHRISTINA YANG DO [address] [place] [address] 02-15-2025 22:31-0400 Systolic Blood Pressure Non-Invasive 189 mm[Hg] DR CHRISTINA YANG DO [address] [place] [address] 02-15-2025 20:31-0400 Diastolic Blood Pressure Non-Invasive 93 mm[Hg] DR CHRISTINA YANG DO [facility] 02-15-2025 20:31-0400 Heart rate 90 /min DR CHRISTINA YANG DO [facility] 02-15-2025 20:31-0400 Respiratory rate 20 /min DR CHRISTINA YANG DO [address] [place] [address] 02-15-2025 20:31-0400 Systolic Blood Pressure Non-Invasive 188 mm[Hg] DR CHRISTINA YANG DO [facility] 02-15-2025 20:22-0400 Blood Pressure Cuff Size DR CHRISTINA YANG DO [facility] 02-15-2025 20:22-[address] CHRISTINA YANG DO [facility] 02-15-2025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 or Population) (1 - Risk 50-74 years 1-dose series) [facility] Start: 07-17-2013 SHINGRIX VACCINE (1 of 2) SHINGRIX VACCINE (1 of 2) [facility] Start: 07-17-2013 Zoster Vaccines (1 o f 2) Zoster Vaccines (1 of 2) [facility] Start: 01-26-2012 Urine microalbumin profile DTaP,Tdap,Td Vaccine (1 - Tdap) [facility] Start: 07-17-2008 COLOGUARD (FIT-DNA) COLOGUARD (FIT-D NA) [facility] Start: 07-17-2008 Colonoscopy COLONOSCOPY [facility] Start: 07-17-2008 COLORECTAL CANCER SCREENING COLORECTAL CANCER SCREENING [facility] Start: 07-17-[address] COLONOGRAPHY [facility] Start: 07-17-2008 FECAL OCCULT BLOOD FECAL OCCULT BLOO D [facility] Start: 07-17-2008 Screening for malign ant neoplasm of colon [facility] Start: 07-17-2008 SIGMOIDOSCOPY SIGMOIDOSCOPY [facility] Start: 07-17-1985 DTaP/Tdap/Td Vaccine s (1 - Tdap) DTaP/Tdap/Td Vaccines (1 - Tdap) [facility] Start: 07-17-1982 Pneumococcal vaccination Pneumococcal Vaccine (1 of 2 - PCV) [facility] Start: 07-17-1982 Urine microalbumin profile DTAP,TDAP,TD (1 - Tdap) [facility] Start: 07-17-1982 Urine screening for protein Diabetes: Urine Protein Screening [facility] Start: 07-17-1981 ANNUAL PCP TEAM PURCHASING INTERN TODD DISEASE VISIT ANNUAL PCP TEAM CHRONIC DISEASE VISIT [facility] Start: 07-17-1981 Hepatitis B surface antibody level LDL CHOLESTEROL [facility] Start: 07-17-1981 HEPATITIS C SCREENING HEPATITIS C [facility] Start: 07-17-1981 Hepatitis C screening Hepatitis C [facility] Start: 07-17-1981 HIV SCREENING HIV SCREENING [facility] Start: 07-17-1981 HIV screening HIV Screening [facility] Start: 07-17-1973 3 comp foot exam completed DIABETIC FOOT EXAM [facility] Start: 07-17-1973 Diabetic foot examination [facility] Start: 07-17-1973 Glaucoma screening [facility] Start: 07-17-1973 Hepatitis B screening URINE AL BUMIN:CREATININE RATIO [facility] Start: 07-17-1973 Hepatitis C antibody , confirmatory test DILATED RETINAL EXAM [facility] Start: 07-17-1969 PNEUMOCOCCAL (1 - PCV) PNEUMOCOCCAL (1 - PCV) [facility] Start: 07-17-1969 Pneumococcal Vaccine : Pediatrics (0 to 5 Years) and At-Risk Patients (6 to 64 Years) (1 of 2 - PCV) Pneumococcal Vaccine: Pediatrics (0 to 5 Years) and At-Risk Patients (6 to 64 Years) (1 of 2 - PCV) [facility] Start: 03-27-1965 MMR Vaccines (1 of 1 - Standard series) MMR Vaccines (1 of 1 - Standard series) [facility] Start: 01-18-1964 COVID-19 Vaccine (#1) COVID-19 Vacci ne (#1) [facility] Start: 01-18-1964 Examination of skin Derm Melanoma Sk in Check [facility] Start: 1965 Annual wellness visit Welcome to Medicare Visit [facility] Start: 1963 Hepatitis B Vaccines (1 of 3 - 3-dose series) Hepatitis B Vaccines (1 of 3 - 3-dose series) [facility] Start: 1963 HIV screening HIV Screening [facility] Start: 1963 Lipid panel Lipid Panel [facility] Start: 1963 Medicare Annual Wellness Visit Medicare Annual Wellness Visit (AWV) [facility] Start: 1963 Screening for malign ant neoplasm of colon [facility] Start: 1963 Yearly Adult Physical Yearly Adult P hysical [facility] Dermatopathology- DE RM LAB Dermatopathology- DERM LAB Pathology and Cytology Timed Dermatitis Release Upon Ordering for 1 Occurrences starting 03/06/2023 [facility] Service Area Work Phone: Comment on above: Release Upon Orderin g for 1 Occurrences starting 03/06/2023 Dermatopathology- DE RM LAB [facility] Service Area Work Phone: Comment on above: Release Upon Orderin g for 1 Occurrences starting 08/21/2024 Dermatopathology- DE RM LAB Dermatopathology- DERM LAB Pathology and Cytology Timed Neoplasm of uncertain behavior of skin Release Upon Ordering for 1 Occurrences starting 09/23/2024 [facility] Area Work Phone: Comment on above: Release Upon Orderin g for 1 Occurrences starting 09/23/2024 NM Heart Perfusion W stress and W radionuclide IV NM CARDIAC PERF STRESS/PHARM Radiology Routine Encounter for screening for cardiovascular disorders 06/19/2023 10:42 AM EST [facility] Work Phone: End: 04-08-2024 US Kidney - bilateral and Urinary bladder [facility] Service Area Work Phone: Comment on above: Once for 1 Occurrenc es starting 04/08/2024 until 04/08/2024 Immunizations Immunization Date Immunization Notes Care Provider Fa ej 06-01-2020 influenza virus vacc ine, unspecified formulation Raeann Mccray MD Work Phone: [facility] Payers Date Payer Category Payer Self-pay 2024 Medicare (Managed Care) 1.2. [id number] 2024 Medicare [id number] 2022 Medicaid [id number] 2021 Medicaid [id number] 2021 Private Health Insurance [id number] 1963 Unknown [id number] 2.16.8 40.1.772470.3.579.2.1245 1963 Unknown [id number] 2.16.8 40.1.505037.3.579.2.1242 1963 Unknown [id number] 2.16.8 40.1.052154.3.579.2. 1963 Unknown [id number] 2.16 840.1.418869.3.579.2.62 1963 Unknown [id number] 2. 840.1.957044.3.579.2.62 1963 Unknown [id number] 2.16 840.1.704584.3.579.2.62 1963 Unknown [id number] 2.16 840.1.171896.3.579.2.62 1963 Unknown [id number] 2.16 840.1.094690.3.579.2.627 1963 Unknown [id number] 2.16 840.1.473657.3.579.262 1963 Unknown [id number] 2.16. 840.1.973137.3.579.2.627 1963 Unknown [id number] 2.16. 840.1.090958.3.579.2.627 1963 Unknown [id number] 2.16. 840.1.382105.3.579.2.1243 1963 Unknown [id number] 2.16. 840.1.541878.3.579.2.1243 1963 Unknown [id number] 2.16. 840.1.659704.3.579.2.1243 1963 Unknown [id number] 2.16. 840.1.413978.3.579.2.1243 1963 Unknown [id number] 2.16. 840.1.293985.3.579.2.1243 1963 Unknown [id number] 2.16. 840.1.212157.3.579.2.1243 1963 Unknown [id number] 2.16. 840.1.185129.3.579.2.1243 1963 Unknown [id number] 2.16. 840.1.968751.3.579.2.1243 1963 Unknown [id number] 2.16. 840.1.094893.3.579.2.1243 1963 Unknown [id number] 2.16 840.1.402675.3.579.2.1243 1963 Unknown [id number] 2.16. 840.1.259014.3.579.2.1244 Social History Date Type Detail Facility Start: 08-28-2022 End: 03-27-2024 Tobacco smoking status NDIS Never smoked tobacco [facility] Start: 08-28-2022 End: 03-14-2023 Tobacco use and exposure Smokeless tobacco non-user [facility] Start: 08-28-2022 Alcohol intake Lifetime non-d rafat (finding) [facility] Start: 1965 Sex Assigned At Not on file [facility] Tobacco smoking stat [facility] Tobacco smoking consumption unknown [facility] Work Phone: Start: 03-14-2023 End: 11-12-2024 Gender identity Not on file [facility] Work Phone: Start: 02-24-2023 End: 09-30-2024 Exposure to SARS-CoV-2 (event) Not sure [facility] Start: 03-14-2023 Tobacco smoking stat [facility] Ex-smoker [facility] Work Phone: End: 04-23-2021 History of tobacco use Current smoker [facility] Work Phone: End: 04-23-2021 History of tobacco use Cigarette Smoker [facility] Work Phone: Start: 03-14-2023 End: 06-19-2023 Alcohol intake Ex-drinker (finding) [facility] Start: 03-14-2023 End: 11-12-2024 History of Social function [facility] Start: 11-03-2022 National Score (1-10 0), lower number is lower risk 56 [facility] Start: 03-14-2023 Alcohol Comment History of abuse [facility] Start: 03-27-2024 Tobacco use and exposure Former smokeless tobacco user [facility] Work Phone: Sexual Orientation [facility] Sex Assigned At Male [facility] Start: 11-03-2022 Sex Male (finding) [facility] Start: 02-15-2025 End: 02-15-2025 Not applicable (qualifier value) [facility] Functional Status Date Assessment Result Facility 02-25-2025 Functional status [facility] 02-25-2025 [facility] Work Phone: 02-15-2025 Functional Status Minimum assistance [facility] 02-15-[address] [facility] 02-15-2025 Functional Status ID band on, Call device within reach, Bed in low position, Wheels locked, Bedside Cart Locked, Safety level maintained [facility] 02-15-2025 [facility] 02-15-2025 Functional Status [facility] Mental Status Date Assessment Result Facility 02-15-2025 Mental Status Orientation Oriented x 4 [facility] 02-15-2025 Mental Status Oriented x 4 [facility] 02-15-2025 Mental Status [facility] Clinical Notes 03-06-2023 to 02-25-2025 Chrissy Roche MD - 02/25/2025 11:45 AM EST Note Date & Type Note Facility 02-25-2025 History of Present illness Narrative Georgie Vargas" is a 59 y.o. male who presents for the following: Suspicious Skin Lesion (B/l wrist lesions, left anterior neck lesion, chest lesion (pt states thinks its a cyst). Personal history of multiple NMSC. ). Review of Systems: No other skin or systemic complaints other than what is documented elsewhere in the note. 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 A focused skin examination was performed. All findings within normal limits unless otherwise noted below. Assessment/Plan Skin Exam 1. EPIDERMAL INCLUSION CYST Right Breast Subcutaneous nodule with erythematous overlying skin and connecting pore, 2cm in size -Discussed nature of the condition -Reassurance, recommend observation at this time -Patient states can no longer squeeze out material and wants removed with Dr. Wakefield -Referral placed for Dr Wakefield for excision This Visit - Referral to Dermatology - Mohs Surgery 2. INFLAMED SEBORRHEIC KERATOSIS Left Supraclavicular Area Stuck-on, waxy macule(s)/papule(s)/plaque(s) with comedo-like openings and milia-like cysts with surrounding erythema and crusting -Patient requests cryotherapy today for these clinically inflamed lesions -Possible side effects of liquid nitrogen treatment reviewed including formation of blisters, crusting, tenderness, scar, and discoloration which may be permanent. - Destr of lesion - Left Supraclavicular Area Complexity: simple Destruction method: cryotherapy Informed consent: discussed and consent obtained Lesion destroyed using liquid nitrogen: Yes Outcome: patient tolerated procedure well with no complications 3. SEBORRHEIC KERATOSIS (3) Left Forearm - Posterior, Neck - Anterior, Right Forearm - Posterior Stuck on, waxy macule(s)/papule(s)/plaque(s) with comedo-like openings and milia like cysts (lesion of patient's concern) -Discussed the nature of the diagnosis -Reassurance, recommend continued observation 4. SKIN TAG Left Anterior Neck Flesh colored pedunculated papule; there is no clinically evident irritation or inflammation (lesion of patient's concern) -Discussed nature of the condition -Reassurance -Removal may be performed for an out of pocket fee given cosmetic nature of removal 5. SQUAMOUS CELL CARCINOMA OF SKIN Left Wrist - Posterior Biopsy proven SCC -Biopsy proven Squamous Cell Carcinoma, biopsied by Dr Brock August 2023 -Skin cancer still has not been treated -Discussed nature of diagnosis and treatment options -Patient elects Mohs surgery with Dr Wakefield. Referral placed today This Visit - Referral to Dermatology - Mohs Surgery 6. 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 The patient verbalizes understanding. Chrissy Roche MD 02/25/2025 documented in this encounter [facility] Work Phone: 02-15-2025 Hospital Discharge instructions Patient Education 02/15/2025 20:36:42 Esophageal Foreign Body, Resolved Esophageal Blockage, Resolved The esophagus is the passage that carries food from the mouth to the stomach. You had a blockage in the esophagus. This can happen after swallowing a large piece of food, taking a large pill, or swallowing foreign objects. If this is a recurring problem, it can be a sign of disease in the esophagus, such as inflammation (swelling and irritation) or scarring. If you did not have a special procedure (endoscopy) today to treat your condition, further testing will be needed to evaluate this problem. The blockage has cleared. You should be able to swallow normally again. Home care For the next 24 hours you may drink liquids and eat soft foods. You may have been given medicine today to prevent pain and help you relax. If so, you may feel drowsy for the next 4 [address] or operate dangerous equipment until you feel alert again. If your esophagus was blocked by food, be sure to cut solid food into small pieces before putting it into your mouth. Chew all foods well before swallowing. If your esophagus was blocked by an mdgm-ofh-jlrhixx pill (such as a vitamin), avoid this size pill in the future. If it was blocked by a prescription medicine, ask your healthcare provider for another form of medicine. Follow-up care Follow up with your healthcare provider, or as advised. If you continue to have problems, contact your doctor or this facility for advice. If this is a recurring problem, talk with your healthcare provider about it. He or she may suggest having an endoscopy. This is a look in the esophagus with a small camera and light in a narrow, flexible tube. When to seek medical advice Call your healthcare provider right away if any of these occur: Unable to swallow Significant pain on swallowing Fever of 100.4 F (38 C) or higher, or as directed by your healthcare provider Call 911 Call 911 if any of the following occur: Chest pain or shortness of breath Vomiting blood (red or black) Blood in your stool (dark red or black color) [id number] [employer]. [address] [place] [address]. All rights reserved. This information is not intended as a substitute for professional medical care. Always follow your healthcare professional's instructions. Follow Up Care 02/15/2025 20:16:01 With:ALENA POP MD Address: [facility]uel[facility] [place] [address]- [phone] When:2-4 days [facility] 02-15-2025 Emergency department Discharge summary Discharge Instructions Thank you for allowing [facility] to assist you with your healthcare needs. The following is important discharge information regarding your hospital visit. Diagnosis from Today's Visit Esophageal foreign body What to Do Next Instructions from Your Care Team No qualifying data available. Post Acute Orders No qualifying data available. You Need to Schedule the Following Appointments Follow Up with ALENA POP MD When:Within 2-4 days Where:[facility] [place] [address]- [phone] Allergies NKA Medications Please ask your primary doctor or pharmacist before taking any other medication not listed, including over the counter drugs, herbal medications, vitamins and or supplements as they may interact with your home medications. What How Much When Instructions Last Dose New famotidine (Pepcid 40 mg oral tablet) 1 tab(s) by mouth Two (2) times a day Duration: 14 Days Printed Prescription Unchanged acetaminophen (acetaminophen 325 mg oral tablet) Unchanged atorvastatin (atorvastatin 20 mg oral tablet) Unchanged bisacodyl (bisacodyl 10 mg rectal suppository) Unchanged cholecalciferol (Vitamin D3 10 mcg (400 intl units) oral tablet) Unchanged cloNIDine (cloNIDine 0.3 mg/ 24 hr transdermal film, extended release) Unchanged dapagliflozin (Farxiga 10 mg oral tablet) Unchanged docusate (docusate sodium 100 mg oral capsule) Unchanged furosemide (furosemide 40 mg oral tablet) Unchanged hydrALAZINE (hydrALAZINE 10 mg oral tablet) Unchanged hydrocortisone topical (hydrocortisone 2.5% topical cream) Unchanged insulin glargine (Lantus Solostar Pen 100 units/ mL 3 mL Pen) Unchanged ketoconazole topical (ketoconazole 2% topical shampoo) Unchanged mupirocin topical (mupirocin 2% topical ointment) Unchanged ondansetron (ondansetron 4 mg oral tablet) Unchanged polyethylene glycol 3350 (polyethylene glycol 3350 oral powder for reconstitution) Unchanged semaglutide (Ozempic 2 mg/ 3 mL (0.25 mg or 0.5 mg dose) subcutaneous solution) Unchanged traMADol (traMADol 50 mg oral tablet) Please take this list to your next doctor s visit. Bring all medications you take, including over the counter medications, herbals and other supplements with you to your doctor s visit. Patients and families are reminded to discard old lists and to update any records with all medication providers or retail pharmacies. Education Materials Esophageal Blockage, Resolved The esophagus is the passage that carries food from the mouth to the stomach. You had a blockage in the esophagus. This can happen after swallowing a large piece of food, taking a large pill, or swallowing foreign objects. If this is a recurring problem, it can be a sign of disease in the esophagus, such as inflammation (swelling and irritation) or scarring. If you did not have a special procedure (endoscopy) today to treat your condition, further testing will be needed to evaluate this problem. The blockage has cleared. You should be able to swallow normally again. Home care For the next 24 hours you may drink liquids and eat soft foods. You may have been given medicine today to prevent pain and help you relax. If so, you may feel drowsy for the next 4 [address] or operate dangerous equipment until you feel alert again. If your esophagus was blocked by food, be sure to cut solid food into small pieces before putting it into your mouth. Chew all foods well before swallowing. If your esophagus was blocked by an fgnp-bsa-pyhcllh pill (such as a vitamin), avoid this size pill in the future. If it was blocked by a prescription medicine, ask your healthcare provider for another form of medicine. Follow-up care Follow up with your healthcare provider, or as advised. If you continue to have problems, contact your doctor or this facility for advice. If this is a recurring problem, talk with your healthcare provider about it. He or she may suggest having an endoscopy. This is a look in the esophagus with a small camera and light in a narrow, flexible tube. When to seek medical advice Call your healthcare provider right away if any of these occur: Unable to swallow Significant pain on swallowing Fever of 100.4 F (38 C) or higher, or as directed by your healthcare provider Call 911 Call 911 if any of the following occur: Chest pain or shortness of breath Vomiting blood (red or black) Blood in your stool (dark red or black color) [phone] [employer]. [address] [place] [address]. All rights reserved. This information is not intended as a substitute for professional medical care. Always follow your healthcare professional's instructions. Additional Information VACCINATE! IT SAVES LIVES! Members of the community who have not yet received the COVID-19 vaccine and would like to receive it can visit one of [facility] vaccine clinics. There are many vaccine clinic locations within the [facility]. For locations and available times, please visit [email or web address] [email or web address] It is important to note that some COVID mobile vaccine clinics are held outdoors and may be canceled in rainy or stormy conditions. To learn more about pediatric vaccinations (ages 5-11), we invite you to visit the [facility] webpage. [email or web address]/p [email or web address]-Exrxs-Udbtkdbfkah-Freq dyegxz-Xvztn-Ocrlzlqbc.html To learn more about the COVID-19 vaccine, we invite you to visit the CDC website for a list of frequently asked questions. https://www.cdc.gov/coronavirus/ 2019-ncov/vaccines/faq.html [facility] Patient Portal Access Instructions: Stay connected with your healthcare team and access your personal medical information anytime with the [facility] Patient Portal. If you would like a full copy of your medical records please contact the [facility] Medical Records Department Sunday through Sunday between 8a.m. and 4:30p.m. Please follow the directions below to access the portal: 1.Access the email account you provided upon registration to the hospital.2.Look for an invitation email from [facility].3.Open the email and access the invitation link: Accept Invitation to [facility]4.Fill in the required lopez to create your account. To access your account, visit [employer] or scan the QR code above. Click the blue button labeled "Access Patient Portal" and then log in with the username and password that you created in the steps above. You can then view a summary of results, a summary of your visits, and the ability to download your summaries to your computer or send the information securely to a physician. Remember that your healthcare information is confidential, so carefully consider who you will allow to register on the [employer] Patient Portal for access to your information. You can also access the [facility] Patient Portal on the [employer] carol. Simply click on "Health Records" under "Health Data" and then click on the [employer] logo. HOW TO SAFELY DISPOSE OF PRESCRIPTION MEDICATIONS Please use one of the following methods to safely dispose of your unused medications. 1.Use a drug disposal kit: the drug disposal pouch allows you to safely discard your old and unused drugs. Ask your nurse to give you one when you are discharged.2.Visit a local take-back location: Many local pharmacies and police departments have programs that collect old and unwanted prescription drugs. Call your local pharmacy or go to http://[employer]/3S3On3y to find one close to you.3.Make use of household items: Use cat litter or old coffee grounds to dispose medications if other options are not available. Mix your drugs with these household products, seal them in an airtight container and throw it into the garbage. Call [facility]: [phone] to be sure your drugs can be disposed of in this way. Some medicines may require a different approach.4.Never flush your medications down the toilet. IF YOU HAVE BEEN PRESCRIBED AN OPIOIDS FOR PAIN If you have been prescribed an opioid (such as hydrocodone, oxycodone or morphine), it is critical to understand the possible side effects and risks of opioid pain medications. Even when taken as directed, opioids can have several side effects including: Tolerance, meaning you might need to take more of a medication for the same pain relief. Nausea, vomiting and/or constipation. Sleepiness, dizziness, dry mouth, confusion, depression or itching. Physical dependence, meaning you have withdrawal symptoms when a medication is stopped ? this can develop within a few days. KNOW YOUR RESPONSIBILITIES It is important to know exactly how much and how often to take the opioid pain medications you are prescribed. Never take opioids in higher amounts or more often than prescribed. Do not combine opioids with alcohol or other drugs that cause drowsiness, such as benzodiazepines, also known as benzos, including diazepam and alprazolam, muscle relaxants or sleep aids. Never sell or share prescription opioids. This is illegal. Store opioids in a secure place and out of reach of others (including children, family, friends and visitors). The last page(s) of this document has been signed and retained as a CHART COPY Signatures Patient Education Materials Esophageal Foreign Body, Resolved Medication Leaflets My discharge plan and instructions have been reviewed and explained to me and I,CIRO HAWKINS understand my current condition and have read and understand these discharge instructions. I have received a written copy of the plan/instructions. If I have questions, I am aware that I should contact my doctor. 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: Date/Time: Relationship to Patient: Witness Name/Signature: Date/Time: [facility] 02-15-2025 Hospital Discharge instructions Follow Up Care 02/15/2025 17:36:45 With:Go to emergency room if symptoms worsen Address:Unknown When:2-4 days With:JOSE LARSON DO, Internal Medicine, [facility] / Address: [address] [place] [address] Medical Specialties, [place] [address]- When:2-4 days [facility] 02-15-2025 Note Exam Date Time Procedure Performing Provider Status 02/15/25 6:57 PM XR Chest 1 View AVNI STEVENSON MD; Auth (Verified) [id number] ORIGINAL EXAMINATION: ONE XRAY VIEW OF THE CHEST02/15/2025 6:57 pm COMPARISON: None HISTORY: ORDERING SYSTEM PROVIDED HISTORY: Reason for Exam: choking episode FINDINGS: The cardiomediastinal contours are normal.Low lung volumes with hypoventilatory changes. No large pleural effusion. No pneumothorax. No focal consolidation seen. There are no acute abnormalities to osseous structures. IMPRESSION: Low lung volumes with hypoventilatory changes. I have personally reviewed the images of this examination and agree with the resident's findings and interpretation. Interpreted by: Avni Stevenson Preliminary Report By: Miguel Toledo Electronically signed By Avni Stveenson Dictated Date: 02/15/2025 7:46:40 PM Prelim Date: 02/15/2025 7:47:13 PM Sign Date: 02/15/2025 7:56:38 PM Ordering Provider: AQUILINO CASEY RP [facility]10-17-2025 NoteHNO ID: [id number] Author: KEVAN MERCHANT MD Service: ? Author Type: Physician Type: Progress Notes Filed: 02/06/2025 13:38 Note Text: [facility] NEW PATIENT CONSULT/HISTORY AND PHYSICAL PATIENT: Ciro Hawkins (59 year old) REFERRING PROVIDER: PCP: Jose Larson Jr, DO DATE OF SERVICE: 02/06/2025 Consultation requested by for an opinion regarding Ciro Hawkins. The patient is a 59-year-old male presenting for evaluation of right scrotal pain and swelling. SUMMARY: Scrotal pain, right DM Treated for epididymitis in ER Patient has large right inguinal hernia on exam. Reducible. He is having intermittent pain Recommend general surgery evaluation 1. Scrotal pain (N50.82) 2. Right inguinal hernia (K40.90) Persistent scrotal pain for approximately 4.5 months, initially treated as epididymitis with levofloxacin without significant improvement. Two prior scrotal ultrasounds, including one on 01/02/2025, showed normal testicles, normal flow, and no masses or lesions. On exam, a large right-sided inguinal hernia was identified, which was also present but smaller on a prior CT scan earlier this year; hernia has since enlarged. - Educated patient that the hernia is the likely source of his symptoms and that surgical repair is indicated. - Referred to general surgery for evaluation and management; patient requested a female surgeon. - No follow-up scheduled with this office. FOLLOW UP: Return if symptoms worsen or fail to improve. ORDERS: Orders Placed This Encounter CONSULT TO GENERAL SURGERY Standing Status: Future Referred to Provider:Jl Hendrix MD Number of Visits Requested:1 HISTORY OF PRESENT ILLNESS: The patient is a 59-year-old male with a history of CVA presenting for evaluation of scrotal pain. The patient reports scrotal pain persisting for approximately 4.5 months. He was evaluated in the ED last month and treated for suspected epididymitis with levofloxacin. He is uncertain whether the antibiotic provided any relief and reports that his symptoms have remained unchanged since onset. He denies any history of heavy lifting. He reports two prior ultrasounds, both of which were negative. He also reports a prior CT scan earlier this year, but did not follow up for the results. I personally reviewed the past medical records received from the referring provider (if present). REVIEW OF SYSTEMS: Genitourinary: (+) scrotal pain, (+) scrotal swelling Neurological: (+) balance instability All other systems negative unless described above. ALLERGIES: ALLERGIES No Known Allergies MEDICATIONS: finerenone (KERENDIA) 10 mg tablet Take 10 mg by mouth once daily. cloNIDine TTS (CATAPRES-TTS) 0.3 mg/24 hr Apply 1 Patch as directed one time a week. Change on Tuesdays cloNIDine HCl (CATAPRES) 0.1 mg tablet Take 0.1 mg by mouth every 12 hours as needed (SBP >150). docusate sodium (COLACE) 100 mg capsule Take 100 mg by mouth two times a day. bisacodyl (DULCOLAX) 10 mg supp 10 mg by RECTAL route once daily as needed for constipation. dapagliflozin propanediol (FARXIGA) 10 mg tablet Take 10 mg by mouth daily with breakfast. aluminum-magnesium hydroxide-simethicone (MAALOX ADVANCED) 200-200-20 mg/5 mL suspension Take 15 mL by mouth every 4 hours as needed (indigestion). glucagon (GLUCAGEN) 1 mg/mL injection Inject 1 mg intramuscularly as needed (hypoglycemia). hydrALAZINE (APRESOLINE) 10 mg tablet Take 10 mg by mouth three times a day. loperamide HCl (IMODIUM) 2 mg tab Take 2 mg by mouth as needed (loose stool). ketoconazole (NIZORAL) 2 % shampoo Apply 1 Application to affected area once daily. APPLY TO SCALP AND EARS semaglutide (OZEMPIC) 0.25 mg or 0.5 mg (2 mg/3 mL) pen Inject 0.5 mg subcutaneously one time a week. Take on guaiFENesin-dextromethorphan (ROBITUSSIN DM) 100-10 mg/5 mL syrup Take 5 mL by mouth every 4 hours as needed for cough. sodium chloride 0.65 % nasal spray Use 1 [place] in the nose every 6 hours as needed for cold/allergy symptoms. traMADol (ULTRAM) 50 mg tablet Take 50 mg by mouth every 8 hours as needed for pain. cholecalciferol (VITAMIN D) 1,000 unit tab tablet Take 1,000 Units by mouth once daily. ondansetron (ZOFRAN) 4 mg tablet Take 4 mg by mouth every 6 hours as needed for nausea/vomiting. insulin lispro (HUMALOG U-100 INSULIN) 100 unit/mL injection Inject 8 units subcutaneously 3 times daily before meals. (Patient taking differently: Inject 2-10 Units subcutaneously three (more content not included)...[facility]07-23-2025 History of Present illness Narrative* Bobby Lizarraga Justice, DO - 11/12/2024 1:30 PM EDT Subjective He is feeling well Has no swelling No problem with meds. No complaints. Has lost 35 lbs. Patient ID: Ciro Vargas" is a 59 y.o. male who presents for Follow-up (3 months/Review labs 11/07). HPI Kidney disease with a baseline creatinine of about 2. Has underlying hypertension with diabetes. Herecently had surgery for squamous cell carcinoma. At last visit we tried to add finerenone. He is already on an SGLT2 and renal function was pretty stable Labs were completed on November 07. Metabolic panel shows a sodium of 141 the rest of the electrolytes look pretty normal bicarb is 25 BUN 23 with a creatinine of 1.8 with an estimated GFR of 39 this is quite stable for him and at his baseline AST and ALT are slightly elevated Hemoglobin A1c was 7.6 hemoglobin is 12.7 vitamin D is low at 18 did not get any urine studies at this time Medications are reviewed currently on a statin clonidine Vicente Nickersonen Doris is listed Lasix insulin vitamin D Blood pressure is 142/76 here in the office today Review of Systems Constitutional: Negative. HENT: Negative. Eyes: Negative. Respiratory: Negative. Cardiovascular: Negative. Gastrointestinal: Negative. Endocrine: Negative. Genitourinary: Negative. Musculoskeletal: Negative. Skin: Negative. Allergic/Immunologic: Negative. Neurological: Negative. Hematological: Negative. Psychiatric/Behavioral: Negative. Objective Physical Exam Constitutional: Appearance: Normal appearance. HENT: Head: Normocephalic and atraumatic. Right Ear: External ear normal. Left Ear: External ear normal. Nose: Nose normal. Mouth/Throat: Mouth: Mucous membranes are moist. Pharynx: Oropharynx is clear. Eyes: Extraocular Movements: Extraocular movements intact. Conjunctiva/sclera: Conjunctivae normal. Pupils: Pupils are equal, round, and reactive to light. Cardiovascular: Rate and Rhythm: Normal rate and regular rhythm. Pulmonary: Effort: Pulmonary effort is normal. Breath sounds: Normal breath sounds. Abdominal: General: Abdomen is flat. Palpations: Abdomen is soft. Musculoskeletal: General: No swelling. Comments: Not able to use Right arm. Skin: General: Skin is warm and dry. Neurological: General: No focal deficit present. Mental Status: He is alert and oriented to person, place, and time. Psychiatric: Mood and Affect: Mood normal. Behavior: Behavior normal. Assessment/Plan Problem List Items Addressed This Visit ICD-10-CM Hypertension I10 Hyperlipidemia E78.5 Stage 3b chronic kidney disease (Multi) - Primary N18.32 Relevant Orders Comprehensive metabolic panel Albumin-Creatinine Ratio, Urine Random Urinalysis with Reflex Microscopic Follow Up In Nephrology Plan: Stop Lasix. Has no swelling and has frequency Stay on current meds as on Renal function is very stable Will F/U on urine. BP is close. Keep current regimen for now. On GLP-1 with weight loss and is tolerating well F/U in 6 months. Chronic kidney disease stage IIIb/IV with baseline creatinine it appears about 2 Hypertension on clonidine and hydralazine with lasix Diabetes mellitus type 2 on insulin Peripheral Edema with Volume Overload Stroke with Right UE weakness Dyslipidemia on a statin. Proteinuria of 1.6 gram: Not rechecked last lab work Bobby Tracey DO 11/12/24 1:50 PM documented in this [facility] Work Phone: 1(865) 820-999207-21-2025 Evaluation + Plan note Future Scheduled Tests Laboratory* Basic Metabolic Panel 11/10/24 * Basic Metabolic Panel 03/06/25 * Aspartate Aminotransferase 11/10/24 * Aspartate Aminotransferase 03/06/25 * A1C Hemoglobin 11/10/24 * A1C Hemoglobin 03/06/25 * ALT / SGPT 11/10/24 * ALT / SGPT 03/06/25 * Lipid Profile 11/10/24 * Lipid Profile 03/06/25 [facility] 06-10-2025 History of Present illness Narrative* Brent Wakefield MD - 09/30/2024 11:15 AM EDT Office Follow Up Note Visit Summary Chief Complaint 1. Complaint Wound check. Ciro Hawkins is a 59 y.o. male who presents for 1 week follow up after surgery for a squamous cellcarcinoma. The patient has no concerns today. Location Operation site location: left lateral distal arm adjacent to scar On exam, Mr. Hawkins is well-appearing and in no apparent distress. The surgical site appears cleanwith minimal to no erythema. No tenderness and good wound edge apposition. Assessment and Plan: History of skin cancer requiring ongoing monitoring for recurrence and additional lesion development. The patient was reassured that the wound is healing appropriately. Sutures were removed without complication today. The dressing was removed, the wound cleaned and a new dressing reapplied. The patient was advised on the importance of routine skin monitoring including follow up with general dermatology and instructed to call with any further concerns. The patient will return as needed. ILatasha RN, am scribing for, and in the presence of Brent Wakefield MD IBrent MD, personally performed the services described in the documentation as scribed by Latasha Lambert RN in my presence, and confirm it is both accurate and complete. documented in this [facility] Work Phone: [phone]) 641-496706-03-2025 History of Present illness Narrative* Brent Wakefield MD - 09/23/2024 10:00 AM EDT Images from the original note were not included. Office Visit Note Date: 09/23/2024 Surgeon: Brent Wakefield MD Office Location: [address] [facility] [address] Dept: [phone] Dept Referring Provider: Cesar Broderick MD [address] [place] [address] Dr Jojo Coffman Bowman, [facility] [address] [place] [address] Georgie Vargas" is a 59 y.o. 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 According to the patient, the lesion has been present for approximately greater than 1 year at the time of diagnosis. The lesion is not causing symptoms. The lesion is adjacent to a previous scar suggesting a recurrence. Also, the patient has a lesion of concern on the right upper eyelid. He reports the lesion has beenpresent for a "long time." It is asymptomatic, but he is wondering what the lesion is as it has been growing. It has not been treated before. The patient does not have a pacemaker / defibrillator. The patient does not have a heart valve / joint replacement. The patient is not on blood thinners. The patient does not have a history of hepatitis B or C. The patient does not have a history of HIV. The patient does not have a history of immunosuppression (e.g. organ transplantation, malignancy, medications) Review of Systems: No other skin or systemic complaints other than what is documented elsewhere in the note. MEDICAL HISTORY: clinically relevant history including significant past medical history, medications and allergies was reviewed and documented in Epic. Objective Well appearing patient in no apparent distress; mood and affect are within normal limits. Vital signs: See record. Noted on the Left lateral distal arm adjacent to scar Is a 2.5 x 1.9 cm scar Right Upper Eyelid 0.4 x 0.4 papule The patient confirmed the identified site. 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 The lesion is a skin cancer. It has a risk of local growth and distant spread. The condition is associated with sun exposure. Warning signs of non-melanoma skin cancer discussed. Patient was instructed to perform monthly self skin examination. We recommended that the patient have regular full skin exams given an increased risk of subsequent skin cancers.The patient was instructed to use sun protective behaviors including use of broad spectrum sunscreens and sun protective clothing to reduce risk of skin cancers. Risks, benefits, side effects of Mohs surgery were discussed with patient and the patient voiced understanding. It was explained that even though the cure rate of Mohs is very high it is not 100%. Risks of surgery including but not limited to bleeding, infection, numbness, nerve damage, and scar were reviewed. Discussion included wound care requirements, activity restrictions, likely scar outcomeand time to heal. After Mohs surgery, the defect may need to be repaired surgically and the scar may be longer than the original lesion. Reconstruction options, risks, and benefits were reviewed including second intention healing, linear repair (4-1 ratio was explained), local flaps, skin grafts, cartilage grafts and interpolation flaps (the need for multiple surgeries was explained). Possible outcomes were reviewed including likely scar appearance, failure of flap survival, infection, bleeding and the need for revision surgery. The pathology was reviewed, the photograph was reviewed, and the referring physician's note was reviewed. Patient elected for Mohs surgery. #Neoplasm of uncertain behavior - right upper eyelid A biopsy is indicated to rule out skin cancer. The differential diagnosis includes basal cell carcinoma and sebaceous hyperplasia. This was discussed with the patient. Risks and benefits of skin biopsy were discussed with the patient. He agreed to proceed with skin biopsy. Please see skin biopsy procedure note from today. Melchor Glez LPN, am scribing for, and in the presence of Brent Wakefield MD I, Jake X Wang, MD, personally performed the services described in the documentation as scribed by Melchor conti in my presence, and confirm it is both accurate and complete. * Brent Wakefield MD - 09/23/2024 10:00 AM EDT Images from the original note were not included. Mohs Surgery Operative Note Date of Surgery: 09/23/2024 Surgeon: Brent Wakefield MD Office Location: [address] [address] Dept: [phone] Dept Referring Provider: Cesar Broderick MD [address] [place] [address] Dr Jojo Coffman [address] [address] Assessment/Plan Mohs surgery - left lateral distal arm adjacent to scar and 2. Skin biopsy - right upper eyelid Pre-procedure: Obtained informed consent: written from patient The surgical site was identified and confirmed with the patient. Intra-operative: Audible time out called at : 10:35 AM 09/23/24 by: Hemalatha Ortega LPN Verified patient name, birthdate, site, specimen bottle label & requisition. The planned procedure(s) was again reviewed with the patient. The risks of bleeding, infection, nerve damage and scarring were reviewed. Written authorization was obtained. The patient identity, surgical site, and planned procedure(s) were verified. The provider acted as both surgeon and pathologist. SQUAMOUS CELL CARCINOMA IN SITU (SCCIS) OF SKIN OF LEFT UPPER ARM Left lateral distal arm adjacent to scar Mohs surgery Consent obtained: written [place] Protocol: Procedure explained and questions answered to patient or proxy's satisfaction: Yes Test results available and properly labeled: Yes Pathology report reviewed: Yes External notes reviewed: Yes Photo or diagram used for site identification: Yes Site/side marked: Yes Slide independently reviewed by Mohs surgeon: Yes Immediately prior to procedure a time out was called: Yes Patient identity confirmed: verbally with patient Preparation: Patient was prepped and draped in usual sterile fashion Anticoagulation: Was the anticoagulation regimen changed prior to Mohs? No Anesthesia: Anesthesia method: local infiltration Local anesthetic: lidocaine 1% WITH epi Procedure Details: Case ID Number: [id number] Biopsy accession number: [id number] Date of biopsy: 05/21/2024 Pre-Op diagnosis: squamous cell carcinoma SCC subtype: in situ Surgical site (from skin exam): Left lateral distal arm adjacent to scar Pre-operative length (cm): 2.5 Pre-operative width (cm): 1.9 Indications for Mohs surgery: tumor size greater than 2 cm and recurrence Micrographic Surgery Details: Post-operative length (cm): 3.5 Post-operative width (cm): 3 Number of Mohs stages: 1 Stage 1 Comments: The patient was brought into the operating room and placed in the procedure chair in the appropriate position. The area positive by previous biopsy was identified and confirmed with the patient. The area of clinically obvious tumor was debulked using a curette and/or scalpel as needed. Anincision was made following the Mohs approach through the skin. The specimen was taken to the lab, divided into 2 piece(s) and appropriately chromacoded and processed. Depth of defect: subcutaneous fat Patient tolerance of procedure: tolerated well, no immediate complications Reconstruction: Was the defect reconstructed? Yes Was reconstruction performed by the same Mohs surgeon? Yes Setting of reconstruction: outpatient office When was reconstruction performed? same day Type of reconstruction: linear Linear reconstruction: complex Length of linear repair (cm): 6 Subcutaneous Layers (Deep Stitches) Suture size: 4-0 Suture type: Vicryl Stitches: Buried vertical mattress Fine/surface layer approximation (top stitches) Epidermal/Superficial suture size: 5-0 Epidermal/Superficial suture type: Prolene Stitches: simple running Suture removal (days): 7 Hemostasis achieved with: suture Outcome: patient tolerated procedure well with no complications Post-procedure details: sterile dressing applied and wound care instructions given Dressing type: pressure dressing Staff Communication: Dermatology Local Anesthesia: 1 % Lidocaine / Epinephrine - Amount: 9 ml Left lateral distal arm adjacent to scar NEOPLASM OF UNCERTAIN BEHAVIOR OF SKIN Right Upper Eyelid Lesion biopsy Type of biopsy: tangential Informed consent: discussed and consent obtained Timeout: patient name, date of , surgical site, and procedure verified Procedure prep: Patient was prepped and draped Anesthesia: the lesion was anesthetized in a standard fashion Anesthetic: 1% lidocaine w/ epinephrine 1-100,000 local infiltration Instrument used: #10 blade Hemostasis achieved with: pressure and electrodesiccation Outcome: patient tolerated procedure well Post-procedure details: sterile dressing applied and wound care instructions given Dressing type: petrolatum and bandage Staff Communication: Dermatology Local Anesthesia: Site Location: 1 % Lidocaine / Epinephrine - Amount: 1 ml Right eyelid Specimen 1 - Dermatopathology- DERM LAB Differential Diagnosis: NUB Check Margins Yes/No?: Comments: BCC v. Sebaceous hyperplasia Dermpath Lab: Routine Histopathology (formalin-fixed tissue) Complex Linear Repair for Mohs defect on the left lateral distal arm - Wide Undermining: Given the location and size of the defect, it was determined that a complex layered linear closure was required to restore normal anatomy and function. The repair was considered complex because extensive undermining was required and performed. The amount of undermining performed was greater than the maximum width of the defect as measured perpendicular to the closure line along at least one entire edge of the defect. Standing cutaneous cones were removed using Burow's triangles. The wound edges were brought into close approximation with buried vertical mattress sutures. The remainder of the wound was then closed with epidermal top sutures. The final repair measured 6.0 cm Wound care was discussed, and the patient was given written post-operative wound care instructions. The patient will follow up with Brent Wakefield MD as needed for any post operative problems or concerns, and will follow up with their primary tip stitcher as scheduled. IMelchor LPN am scribing for, and in the presence of Brent Wakefield MD IBrent MD, personally performed the services described in the documentation as scribed by Melchor Ortega LPN in my presence, and confirm it is both accurate and complete. [facility] Phone: [phone]) 207-534405-01-2025 History of Present illness Narrative* Brent Wakefield MD - 08/21/2024 2:00 PM EDT Images from the original note were not included. Excision Operative Note Date of Surgery: 08/21/2024 Surgeon: Brent Wakefield MD Office Location: [address] [address] Dept: [phone] Dept Referring Provider: Cesar Broderick MD [address] [place] [address] Subjective Ciro Vargas" is a 59 y.o. male who presents for the following: Excision (Right Lateral Dorsal Mid Forearm) for basal cell carcinoma. According to the patient, the lesion has been present for approximately greater than 1 year at the time of diagnosis. The lesion is not causing symptoms. The lesion has not been treated previously. The patient does not have a pacemaker / defibrillator. The patient does not have a heart valve / joint replacement. The patient is not on blood thinners. The patient does not have a history of hepatitis B or C. The patient does not have a history of HIV. The patient does not have a history of immunosuppression (e.g. organ transplantation, malignancy, medications) Is it okay to leave a phone message with results? Yes Who else may we leave results with: (name, relationship) n/a The following portions of the chart were reviewed this encounter and updated as appropriate: Assessment/Plan Pre-procedure: Obtained informed consent: written from patient The surgical site was identified and confirmed with the patient. Intra-operative: Audible time out called at : 2:56 PM 08/21/24 by: JEMIMA WASHINGTON RN Verified patient name, birthdate, site, specimen bottle label & requisition. The planned procedure(s) was again reviewed with the patient. The risks of bleeding, infection, nerve damage and scarring were reviewed. The patient identity, surgical site, and planned procedure(s) were verified. Biopsy Accession Number: [id number] BASAL CELL CARCINOMA (BCC) OF SKIN OF RIGHT UPPER EXTREMITY INCLUDING SHOULDER Right Lateral Dorsal Mid Forearm Skin excision Lesion length (cm): 0.6 Lesion width (cm): 0.6 Margin per side (cm): 0.4 Total excision diameter (cm): 1.4 Informed consent: discussed and consent obtained Timeout: patient name, date of , surgical site, and procedure verified Procedure prep: Patient prepped in sterile fashion Anesthesia: the lesion was anesthetized in a standard fashion Anesthetic: 1% lidocaine w/ epinephrine 1-100,000 local infiltration Instrument used: #15 blade Hemostasis achieved with: electrodesiccation Outcome: patient tolerated procedure well with no complications Post-procedure details: sterile dressing applied and wound care instructions given Dressing type: pressure dressing and Alex wrap Additional details: The nature of the diagnosis was explained. The lesion is a skin cancer. It is locally aggressive but has a very low to non-existent risk of spreading. The condition is associated with sun exposure. Warning signs of non- melanoma skin cancer discussed. Patient was instructed to perform monthly self skin examination. We recommended that the patient have regular full skin exams given an increased risk of subsequent skin cancers. The patient was instructed to use sun protective behaviors including use of broad spectrum sunscreens and sun protective clothing to reduce risk of skin cancers. Excision was discussed with the patient. The risks, benefits and potential adverse effects were reviewed. Discussion included but was not limited to the cure rate, relative cost, wound care requirements, activity restrictions, likely scar outcome and time to heal were reviewed. It was explained that the scar would be longer than the original lesion. The patient elected to proceed with exicision today. Skin repair Complexity: Intermediate Final length (cm): 4.2 Informed consent: discussed and consent obtained Timeout: patient name, date of , surgical site, and procedure verified Procedure prep: Patient prepped in sterile fashion Anesthesia: the lesion was anesthetized in a standard fashion Anesthetic: 1% lidocaine w/ epinephrine 1-100,000 local infiltration Reason for type of repair: reduce tension to allow closure Undermining: edges undermined Subcutaneous layers (deep stitches): Suture size: 4-0 Suture type: Vicryl (polyglactin 910) Stitches: Buried vertical mattress Fine/surface layer approximation (top stitches): Suture size: 5-0 Suture type: fast-absorbing plain gut Stitches: simple running Hemostasis achieved with: electrodesiccation Outcome: patient tolerated procedure well with no complications Post-procedure details: sterile dressing applied and wound care instructions given Dressing type: pressure dressing Staff Communication: Dermatology Local Anesthesia: Site Location: Right lateral Dorsal Mid Forearm 1 % Lidocaine / Epinephrine - Amount:2.5cc Specimen 1 - Dermatopathology- DERM LAB Differential Diagnosis: BCC ([id number]) Check Margins Yes/No?: Yes Comments: 4 mm margins, indication stitch at proximal tip Dermpath Lab: Routine Histopathology (formalin-fixed tissue) Intermediate Linear Repair: Given the location and size of the defect, it was determined that an intermediate layered linear closure was required to restore normal anatomy and function. The repair isan intermediate closure as two layers of sutures were required. The defect was undermined extensively at the level of the subcutaneous plane. Standing cutaneous cones were removed using Burow's triangles. The wound edges were brought into close approximation with buried vertical mattress sutures. The remainder of the wound was then closed with epidermal top sutures. The final repair measured 4.2 cm Wound care was discussed, and the patient was given written post-operative wound care instructions. The patient will follow up with Brent Wakefield MD as needed for any post operative problems or concerns, and will follow up with their primary tip stitcher as scheduled. documented in this [facility] Work Phone: [phone] [phone] History of Present illness Narrative* Brent Wakefield MD - 08/19/2024 9:30 AM EDT Office Visit Note Date: 08/19/2024 Surgeon: Brent Wakefield MD Office Location: [address] [place] [address] [facility] [address] Dept: [phone] Dept Referring Provider: MD Jamshid Villalobos Dr [place], [facility] [address] [place] [address] Georgie Vargas" is a 59 y.o. male who presents for the following: MOHS Surgery (Left Wrist-Posterior) According to the patient, the lesion has been present for approximately greater than 1 year at the time of diagnosis. The lesion is not causing symptoms. The lesion has not been treated previously. The patient does not have a pacemaker / defibrillator. The patient does not have a heart valve / joint replacement. The patient is not on blood thinners. The patient does not have a history of hepatitis B or C. The patient does not have a history of HIV. The patient does not have a history of immunosuppression (e.g. organ transplantation, malignancy, medications) Review of Systems: No other skin or systemic complaints other than what is documented elsewhere in the note. MEDICAL HISTORY: clinically relevant history including significant past medical history, medications and allergies was reviewed and documented in Epic. Objective Well appearing patient in no apparent distress; mood and affect are within normal limits. Vital signs: See record. Noted on the Left Wrist - Posterior Is a 2.5 x 2.5 cm pink plaque The patient confirmed the identified site. Discussion: The nature of the diagnosis was explained. The lesion is a skin cancer. It has a risk of local growth and distant spread. The condition is associated with sun exposure. Warning signs of non-melanoma skin cancer discussed. Patient was instructed to perform monthly self skin examination. We recommended that the patient have regular full skin exams given an increased risk of subsequent skin cancers. The patient was instructed to use sun protective behaviors including use of broad spectrum sunscreens and sun protective clothing to reduce risk of skin cancers. Risks, benefits, side effects of Mohs surgery were discussed with patient and the patient voiced understanding. It was explained that even though the cure rate of Mohs is very high it is not 100%. Risks of surgery including but not limited to bleeding, infection, numbness, nerve damage, and scar were reviewed. Discussion included wound care requirements, activity restrictions, likely scar outcomeand time to heal. After Mohs surgery, the defect may need to be repaired surgically and the scar may be longer than the original lesion. Reconstruction options, risks, and benefits were reviewed including second intention healing, linear repair (4-1 ratio was explained), local flaps, skin grafts, cartilage grafts and interpolation flaps (the need for multiple surgeries was explained). Possible outcomes were reviewed including likely scar appearance, failure of flap survival, infection, bleeding and the need for revision surgery. The pathology was reviewed, the photograph was reviewed, and the referring physician's note was reviewed. Patient elected for Mohs surgery. * Brent Wakefield MD - 08/19/2024 9:30 AM EDT Images from the original note were not included. Mohs Surgery Operative Note Date of Surgery: 08/19/2024 Surgeon: Brent Wakefield MD Office Location: [address] [address] Dept: [phone] Dept Referring Provider: Cesar Broderick MD [address] [place] [address] Assessment/Plan Pre-procedure: Obtained informed consent: written from patient The surgical site was identified and confirmed with the patient. Intra-operative: Audible time out called at : 10:21 AM 08/19/24 by: Latasha Lambert RN Verified patient name, birthdate, site, specimen bottle label & requisition. The planned procedure(s) was again reviewed with the patient. The risks of bleeding, infection, nerve damage and scarring were reviewed. Written authorization was obtained. The patient identity, surgical site, and planned procedure(s) were verified. The provider acted as both surgeon and pathologist. SQUAMOUS CELL CARCINOMA IN SITU (SCCIS) OF SKIN OF LEFT WRIST Left Wrist - Posterior Mohs surgery Consent obtained: written [place] Protocol: Procedure explained and questions answered to patient or proxy's satisfaction: Yes Test results available and properly labeled: Yes Pathology report reviewed: Yes External notes reviewed: Yes Photo or diagram used for site identification: Yes Site/side marked: Yes Slide independently reviewed by Mohs surgeon: Yes Immediately prior to procedure a time out was called: Yes Patient identity confirmed: verbally with patient Preparation: Patient was prepped and draped in usual sterile fashion Anticoagulation: Is the patient taking prescription anticoagulant and/or aspirin prescribed/recommended by a physician? No Was the anticoagulation regimen changed prior to Mohs? No Anesthesia: Anesthesia method: local infiltration Local anesthetic: lidocaine 1% WITH epi Procedure Details: Case ID Number: [id number] Biopsy accession number: [id number] Date of biopsy: 08/31/2023 Pre-Op diagnosis: squamous cell carcinoma SCC subtype: in situ Surgical site (from skin exam): Left Wrist - Posterior Pre-operative length (cm): 2.5 Pre-operative width (cm): 2.5 Indications for Mohs surgery: tumor size greater than 2 cm Previously treated? No Micrographic Surgery Details: Post-operative length (cm): 2.8 Post-operative width (cm): 2.5 Number of Mohs stages: 2 Stage 1 Comments: The patient was brought into the operating room and placed in the procedure chair in the appropriate position. The area positive by previous biopsy was identified and confirmed with the patient. The area of clinically obvious tumor was debulked using a curette and/or scalpel as needed. Anincision was made following the Mohs approach through the skin. The specimen was taken to the lab, divided into 4 piece(s) and appropriately chromacoded and processed. Tumor was seen on the lateral margins as indicated on the on the Mohs map. Squamous cell carcinoma in situ. Histologic examination revealed enlarged, atypical keratinocytes with large nuclear to cytoplasmic ratio extending throughout the full thickness of an epidermis. Tumor features identified on Mohs section: Squamous Cell Carcinoma in Situ Depth of invasion: Epidermis Stage 2 Comments: The area of positivity as noted on the Mohs map in the previous stage was identified and removed using the Mohs technique. The specimen was taken to the lab and appropriately chromacoded and processed in 1 piece(s). Tumor features identified on Mohs section: no tumor identified Depth of defect: subcutaneous fat Patient tolerance of procedure: tolerated well, no immediate complications Reconstruction: Was the defect reconstructed?: No Repair: After a discussion with the patient regarding the options for wound closure, a decision wasmade to proceed with second intention healing. Dressing/Follow-up: Surgifoam was placed in the wound. A pressure dressing was placed to help stabilize the wound and to minimize the risk of postoperative bleeding. Wound care was discussed, and thepatient was given written post- operative wound care instructions. Staff Communication: Dermatology Local Anesthesia: 1 % Lidocaine / Epinephrine - Amount: 8ml Related Medications mupirocin (Bactroban) 2 % ointment Apply topically once daily for 14 days. Apply to wound on left wrist Mupirocin ointment was prescribed for wound care. The patient will follow up with Brent Wakefield MD as needed for any post operative problems or concerns, and will follow up with their primary tip stitcher as scheduled. documented in this [facility] Work Phone: [phone] History of Present illness Narrative* Bobby Lizarraga DO Justice - 07/31/2024 9:30 AM EDT Subjective He is feeling well No major complaints. He is in assisted living. Patient ID: Ciro Vargas" is a 59 y.o. male who presents for Follow-up (3 months/Review labs). HPI He is here for follow-up secondary to chronic kidney disease with a baseline creatinine of about 2.On medications for hypertension and diabetes. At last visit renal function was stable he is on an SGLT2 Labs were completed on July 28 Urinalysis shows positive glucose positive protein urine albumin creatinine ratio is 1664 Last metabolic panel was on July 20 BUN was 22 with a creatinine of 1.97 potassium is 3.7 bicarb is 21 Blood pressure is 122/70 and that is looking quite good He is on a statin clonidine SGLT2 Lasix insulin hydralazine vitamin D Review of Systems Constitutional: Negative. HENT: Negative. Eyes: Negative. Respiratory: Negative. Cardiovascular: Negative. Gastrointestinal: Negative. Endocrine: Negative. Genitourinary: Negative. Musculoskeletal: Negative. Skin: Negative. Allergic/Immunologic: Negative. Neurological: Negative. Hematological: Negative. Psychiatric/Behavioral: Negative. Objective Physical Exam Constitutional: Appearance: Normal appearance. He is obese. HENT: Head: Normocephalic and atraumatic. Right Ear: External ear normal. Left Ear: External ear normal. Nose: Nose normal. Mouth/Throat: Mouth: Mucous membranes are moist. Pharynx: Oropharynx is clear. Eyes: Extraocular Movements: Extraocular movements intact. Conjunctiva/sclera: Conjunctivae normal. Pupils: Pupils are equal, round, and reactive to light. Cardiovascular: Rate and Rhythm: Normal rate and regular rhythm. Pulmonary: Effort: Pulmonary effort is normal. Breath sounds: Normal breath sounds. Abdominal: General: Abdomen is flat. Palpations: Abdomen is soft. Skin: General: Skin is warm and dry. Neurological: General: No focal deficit present. Mental Status: He is alert and oriented to person, place, and time. Psychiatric: Mood and Affect: Mood normal. Behavior: Behavior normal. Assessment/Plan Problem List Items Addressed This Visit ICD-10-CM Hypertension I10 Type 2 diabetes mellitus E11.9 Hyperlipidemia E78.5 Stage 3b chronic kidney disease (Multi) - Primary N18.32 Relevant Medications finerenone (Kerendia) 10 mg tablet tablet Other Relevant Orders Follow Up In Nephrology Comprehensive metabolic panel Albumin-Creatinine Ratio, Urine Random Urinalysis with Reflex Microscopic Plan: Renal Function is very stable. BP is at Gaol < 130/80. On SGLT2 and Statin Volume satus is good. Add Finerenone for Proteinuria. F/U in 3 months. Chronic kidney disease stage IIIb/IV with baseline creatinine it appears about 2 Hypertension on clonidine and hydralazine with lasix Diabetes mellitus type 2 on insulin Peripheral Edema with Volume Overload Stroke with Right UE weakness Dyslipidemia on a statin. Proteinuria of 1.6 gram. Bobby Tracey DO 07/31/24 10:19 AM documented in this [facility] Work Phone: 1(778) 273-574103-31-2025 NoteHNO ID: [id number] Author: MURIEL BALDERAS LSW Service: Care Management Author Type: Film Processing Utility Worker Type: Care Mgt Progress Note Filed: 07/21/2024 17:01 Note Text: CARE MANAGEMENT DISCHARGE NOTE SERVICE DATE: July 21, 2024 SERVICE TIME: 1700 Admission Date: 2024 LOS: 3 days Discharge Arrangement Discharge Arrangement: Residential Facility Was an expedited discharge program used?: No Services Arranged- [place] Provider Name: Roderick CHICAS Caregiver Assessment Caregiver is ready, willing and able to meet the patient's needs as recommended by the inter-professional team: Yes Name of Caregiver: Roderick CHICAS Transportation Arrangements Transportation Arrangements: Uber/Lyft/Mariah (paid by [facility] [place]) Handoff Communication: Handoff to: Deputy Juvenile Officer Deputy Juvenile Officer Name/Phone: 2M PCC Dasia Arredondo [phone] Additional Information: Pt discharged to [facility] via uber service this date . Pt in agreement with discharged this date and in agreement with d/c date and plan no additional needs noted N2N provided to 2M Staff no f/u indicated Case closed SIGNATURE: DIANA Gary PATIENT NAME: Ciro Hawkins DATE: July 21, 2024 [facility]: 4:[facility] NoteHNO ID: [id number] Author: DIEUDONNE WRIGHT RN Service: Nursing Author Type: Registered Nurse Type: Nursing Progress Note Filed: 07/21/2024 16:04 Note Text: Patient declined to have MRI. Patient also declined to have labs drawn today. [facility]03-31-2025 NoteHNO ID: [id number] Author: MURIEL BALDERAS LSW Service: Care Management Author Type: Film Processing Utility Worker Type: Care Mgt Initial Assessment Filed: 07/21/2024 13:24 Note Text: CARE MANAGEMENT: ASSESSMENT AND DISCHARGE PLAN SERVICE DATE: July 21, 2024 SERVICE TIME: 1305 PCP: Ciro Schultz MD Primary Contact: Extended Emergency Contact Information Primary Emergency Contact: Cheryl Argueta [facility] Relation: Friend Admission Status: Inpatient Insurance Provider: [facility] MED[facility] ADVANTAGE PPO Discharge Planning requested by: Department Practice Potential Transition Plans Other: See Comment Advance Directives Current Advance Directive: None Customer Relations Coordinator Attempted to Assist with AD Completion: Yes Action: Education Provided Current Living Arrangements and Support Lives with: Type of Residence: Assisted Living Facility Does the patient have to climb stairs at home?: No Care Facility Name: [facility] Support: Other: See Comment, Friends/neighbors [place] STAFF How do you manage to accomplish the following: Independent: Ambulation, Going to the bathroom Needs Assistance: Bathe/Shower, Dress Dependent: Meals/Meal Prep, Medication Management, Transportation to appointments/community Current Services/Equipment Current Post-Acute Service(s): None Discharge Planning Patient Goal(s): Be able to go home, General wellness, Increase strength [place] of Choice Explained: [place] of [place] Given: Yes Are you interested in bedside delivery of your medications? No Discharge Planning Participant(s): Patient Patient/Family Comments: Caregiver Assessment: Caregiver is ready, willing and able to meet the patient's needs as recommended by the inter-professional team: Yes Name of Caregiver: [facility] Transport at Discharge: Transportation Arrangements: Uber/Lyft/Mariah (paid by [facility] [place]) Needs Prior to Discharge: Needs Prior to Discharge: To Be Determined Intimate Partner Violence We have begun to talk to patients about safe and healthy relationships because it can have a large impact on your health. Do you feel safe around your partner or ex-partner?: Yes Food Insecurity Within the past 12 months, you worried that your food would run out before you got the money to buy more.: Never true Within the past 12 months, the food you bought just didn't last and you didn't have money to get more.: Never true Transportation Needs In the past 12 months, has lack of transportation kept you from medical appointments or from getting medications?: No In the past 12 months, has lack of transportation kept you from meetings, work, or from getting things needed for daily living?: No Housing Stability In the last 12 months, was there a time when you were not able to pay the mortgage or rent on time?: No In the past 12 months, how many times have you moved where you were living?: 1 At any time in the past 12 months, were you homeless or living in a mcc (including now)?: No Utilities In the past 12 months has the [employer], [employer], or [employer] threatened to shut off services in your home?: No Social Information Financial Resources: Unemployed Post-Acute Discharge Plan: Consult of pt admitted from the [place] setting due to Cellulitis of left upper arm . Chart reviewed and met with pt this date Per pt prior to admission he resided at [facility] and his d/c plan is to return there.He confirms they manage his medications and provide all of his meals. Per pt he does not use an assistance device and his PCP is Dr Larson . Pt confirms that his mother is no longer his contact, he does not wish to do Advance Directives and states his friend Cheryl Argueta ([phone]) is his contact centre supervisor and Epic updated per pt request . Referral sent to [facility] in [facility] and pt will require transport upon d/c and confirmed with nursing pt is stable to transport by uber . Will proceed accordingly SIGNATURE: DIANA Gary PATIENT NAME: Ciro Hawkins DATE: July 21, 2024 TIME: 1:08 PM[facility] NoteHNO ID: [id number] Author: JORDYN URRUTIA MD Service: General Internal Medicine Author Type: Physician Type: Progress Notes Filed: 07/21/2024 15:28 Note Text: INPATIENT PROGRESS NOTE SERVICE DATE: 07/20/2024 SERVICE TIME: 3:17 PM PRIMARY SERVICE: Hospital Medicine Subjective Patient seen and examined bedside this morning. Patient reports improved abdominal pain today. Continues to have nausea. Was eagerly waiting for his MRI of spine, anxious about new treatable lesion. Current Facility-Administered Medications Medication Dose Route Frequency NaCl 0.9% iv flush bag 20 mL INTRAVENOUS PRN morphine 2 mg injection 2 mg INTRAVENOUS q 4 H PRN oxyCODONE IR 5 mg tab(s) (ROXICODONE) 5 mg ORAL q 4 H PRN acetaminophen 650 mg tab(s) (TYLENOL) 650 mg ORAL q 4 H PRN atorvastatin 20 mg tab(s) (LIPITOR) 20 mg ORAL DAILY cloNIDine HCl 0.1 mg tab(s) (CATAPRES) 0.1 mg ORAL q 12 H PRN hydrALAZINE 10 mg tab(s) (APRESOLINE) 10 mg ORAL TID insulin glargine 14 Units pen (long acting) 14 Units SUBCUTANEOUS BID aluminum-magnesium hydroxide-simethicone 200-200-20 mg/5 mL 15 mL 15 mL ORAL q 4 H PRN bisacodyl 10 mg suppository (DULCOLAX) 10 mg RECTAL DAILY PRN docusate sodium 100 mg cap(s) (COLACE) 100 mg ORAL BID loperamide 2 mg cap(s) (IMODIUM) 2 mg ORAL PRN sodium chloride 0.65 % 1 [place] 1 [place] EACH NOSTRIL q 6 H PRN cholecalciferol 1,000 Units tab(s) (VITAMIN D3) 1,000 Units ORAL DAILY heparin 5,000 Units injection 5,000 Units SUBCUTANEOUS q 12 H ondansetron (PF) 4 mg injection (ZOFRAN) 4 mg INTRAVENOUS q 6 H PRN cefTRIAXone 1 g in D5W 100 mL Vial-Bag (ROCEPHIN) 1 g INTRAVENOUS q 24 H cloNIDine TTS 0.3 mg/24 hr 1 Patch (CATAPRES-TTS) 1 Patch TRANSDERMAL 1/WK hydrALAZINE 10 mg injection (APRESOLINE) 10 mg INTRAVENOUS q 6 H PRN dextrose 40 % 15 g 15 g ORAL PRN Or glucagon 1 mg injection 1 mg INTRAMUSCULAR PRN Or dextrose 10% iv bolus 12.5 g INTRAVENOUS PRN insulin lispro injection (rapid acting) (ADMElog) SUBCUTANEOUS w MEALS cloNIDine - VERIFY PATCH OTHER q 8 H And cloNIDine - REMOVE PATCH OTHER q FRI prochlorperazine 5 mg injection (COMPAZINE) 5 mg INTRAVENOUS q 6 H PRN Objective PHYSICAL EXAM: BP 160/73 Pulse 72 Temp (Src) 99 (Oral) Resp 19 Ht 5' 8.898" (1.75m) Wt 230 lb (104.3kg) SpO2 97% BMI 34.07 kg/(m2). O2 Therapy: Room Air General: alert and oriented x3, resting comfortably Neck: supple, no hepatojugular reflux or jugular venous distention, no carotid bruits Lungs: clear to auscultation bilaterally, no wheezing, rales, or rhonchi Cardiac: regular rate and rhythm, normal S1 and S2, no murmurs, gallops, or rubs Abdomen: soft, nontender, nondistended, bowel sounds present Extremities: no edema, cyanosis, or clubbing Skin: erythema over site of recent shave excision on right upper extremity Lymphatic: no cervical or supraclavicular lymphadenopathy Neurologic: chronic right upper extremity weakness, cranial nerves II-XII are grossly intact DATA: Recent Labs 07/20/24 1155 07/20/24 0735 07/19/24 2040 07/19/24 1704 07/19/24 1214 PCGLUCOSE 154* 129* 146* 153* 145* LABORATORY TESTS: CBC: Recent Labs 07/20/24 1255 07/19/24 1046 07/18/24 1113 WBC 14.96* 20.82* 19.59* HB 12.1* 12.9* 12.9* PLT 454* 489* 460* MCV 88.4 87.5 86.2 NEUTP 73.6 79.8 92.4 ABSNEUT 11.01* 16.62* 18.10* LYMPHP 14.3 10.6 4.3 EODINP 2.8 1.4 0.1 CHEM: Recent Labs 07/20/24 1255 07/19/24 1046 07/18/24 1113 NA 140 137 130* K 3.7 4.0 4.1 CA 9.0 9.0 9.3 MG -- 2.0 1.9 ANION 11 11 10 CHLOR 108* 105 97* CO2 21 21 23 GLUC 129* 163* 352* BUN 22 19 21 CREAT 1.97* 1.72* 1.65* HEPATIC: Recent Labs 07/20/24 1255 07/19/24 1046 07/18/24 1113 ALT 120* 157* 213* AST 47* 55* 70* TBILI 0.4 0.4 0.5 ALKPHOS 100 111 127* ALB 2.8* 3.0* 3.4 TPROT 6.2 6.6 7.6 URINALYSIS: Recent Labs 07/18/24 1114 SPGR 1.024 UBACTERIA Rare* LEUKEST Negative UWBC 0-5 /HPF URBC 0-3 /HPF UHB Negative UPROT 3+* UGLUC 3+* UKET Negative COAG: No results for input(s): "APTT", "INR" in the last 168 hours. CARDIAC: No results for input(s): "CKMB", "CKMBP", "TROPT", "PBNP" in the last 168 hours. DATA: Diagnostic tests reviewed for today's visit: Most recent labs and imaging results. Most recent EKG Urine Culture: Positive Micro-30 Days Procedure Component Value Units Date/Time Blood Culture [[id number]] (Abnormal) Collected: 07/18/241619 Order Status: Completed Specimen: Blood Updated: 07/19/24 1218 Gram Stain Gram positive cocci in clusters Blood Culture Identification Panel [[id number]] (Abnormal) Collected: 07/18/24 162 Order Status: Completed Specimen: Blood Updated: 07/19/24 1416 Interpretation Methicillin-resistant Staphylococcus epidermidis (MRSE) detected by PCR. Single positive cultures of S. epidermidis usually represent contamination. Call lab within 72 hours if further work up is required. Blood Culture: (more content not included)...[facility]03-29-2025 Note HNO ID: [id number] Author: JORDYN URRUTIA MD Service: General Internal Medicine Author Type: Physician Type: Progress Notes Filed: 07/21/2024 15:35 Note Text: INPATIENT PROGRESS NOTE SERVICE DATE: 07/19/2024 SERVICE TIME: 2:52 PM PRIMARY SERVICE: Hospital Medicine Subjective Patient seen and examined bedside this morning. Patient reports improved abdominal pain today. Continues to have nausea. Was eagerly waiting for his MRI of spine, anxious about new treatable lesion. Current Facility-Administered Medications Medication Dose Route Frequency NaCl 0.9% iv flush bag 20 mL INTRAVENOUS PRN morphine 2 mg injection 2 mg INTRAVENOUS q 4 H PRN oxyCODONE IR 5 mg tab(s) (ROXICODONE) 5 mg ORAL q 4 H PRN acetaminophen 650 mg tab(s) (TYLENOL) 650 mg ORAL q 4 H PRN NaCl 0.9% iv infusion 75 mL/hr INTRAVENOUS CONTINUOUS atorvastatin 20 mg tab(s) (LIPITOR) 20 mg ORAL DAILY cloNIDine HCl 0.1 mg tab(s) (CATAPRES) 0.1 mg ORAL q 12 H PRN hydrALAZINE 10 mg tab(s) (APRESOLINE) 10 mg ORAL TID insulin glargine 14 Units pen (long acting) 14 Units SUBCUTANEOUS BID aluminum-magnesium hydroxide-simethicone 200-200-20 mg/5 mL 15 mL 15 mL ORAL q 4 H PRN bisacodyl 10 mg suppository (DULCOLAX) 10 mg RECTAL DAILY PRN docusate sodium 100 mg cap(s) (COLACE) 100 mg ORAL BID loperamide 2 mg cap(s) (IMODIUM) 2 mg ORAL PRN sodium chloride 0.65 % 1 [place] 1 [place] EACH NOSTRIL q 6 H PRN cholecalciferol 1,000 Units tab(s) (VITAMIN D3) 1,000 Units ORAL DAILY heparin 5,000 Units injection 5,000 Units SUBCUTANEOUS q 12 H iv contrast (radiology procedure) INTRAVENOUS DIRECTED PRN ondansetron (PF) 4 mg injection (ZOFRAN) 4 mg INTRAVENOUS q 6 H PRN cefTRIAXone 1 g in D5W 100 mL Vial-Bag (ROCEPHIN) 1 g INTRAVENOUS q 24 H cloNIDine TTS 0.3 mg/24 hr 1 Patch (CATAPRES-TTS) 1 Patch TRANSDERMAL 1/WK hydrALAZINE 10 mg injection (APRESOLINE) 10 mg INTRAVENOUS q 6 H PRN dextrose 40 % 15 g 15 g ORAL PRN Or glucagon 1 mg injection 1 mg INTRAMUSCULAR PRN Or dextrose 10% iv bolus 12.5 g INTRAVENOUS PRN insulin lispro injection (rapid acting) (ADMElog) SUBCUTANEOUS w MEALS cloNIDine - VERIFY PATCH OTHER q 8 H And cloNIDine - REMOVE PATCH OTHER q FRI prochlorperazine 5 mg injection (COMPAZINE) 5 mg INTRAVENOUS q 6 H PRN Objective PHYSICAL EXAM: BP 187/92 Pulse 82 Temp (Src) 98.1 (Oral) Resp 16 Ht 5' 8.898" (1.75m) Wt 230 lb (104.3kg) SpO2 96% BMI 34.07 kg/(m2). O2 Therapy: Room Air General: alert and oriented x3, resting comfortably Neck: supple, no hepatojugular reflux or jugular venous distention, no carotid bruits Lungs: clear to auscultation bilaterally, no wheezing, rales, or rhonchi Cardiac: regular rate and rhythm, normal S1 and S2, no murmurs, gallops, or rubs Abdomen: soft, nontender, nondistended, bowel sounds present Extremities: no edema, cyanosis, or clubbing Skin: erythema over site of recent shave excision on right upper extremity Lymphatic: no cervical or supraclavicular lymphadenopathy Neurologic: chronic right upper extremity weakness, cranial nerves II-XII are grossly intact DATA: Recent Labs 07/19/24 1214 07/19/24 0740 07/18/24 2205 07/18/24 1756 PCGLUCOSE 145* 135* 208* 274* LABORATORY TESTS: CBC: Recent Labs 07/19/24 1046 07/18/24 1113 WBC 20.82* 19.59* HB 12.9* 12.9* PLT 489* 460* MCV 87.5 86.2 NEUTP 79.8 92.4 ABSNEUT 16.62* 18.10* LYMPHP 10.6 4.3 EODINP 1.4 0.1 CHEM: Recent Labs 07/19/24 1046 07/18/24 1113 NA 137 130* K 4.0 4.1 CA 9.0 9.3 MG 2.0 1.9 ANION 11 10 CHLOR 105 97* CO2 21 23 GLUC 163* 352* BUN 19 21 CREAT 1.72* 1.65* HEPATIC: Recent Labs 07/19/24 1046 07/18/24 1113 ALT 157* 213* AST 55* 70* TBILI 0.4 0.5 ALKPHOS 111 127* ALB 3.0* 3.4 TPROT 6.6 7.6 URINALYSIS: Recent Labs 07/18/24 1114 SPGR 1.024 UBACTERIA Rare* LEUKEST Negative UWBC 0-5 /HPF URBC 0-3 /HPF UHB Negative UPROT 3+* UGLUC 3+* UKET Negative COAG: No results for input(s): "APTT", "INR" in the last 168 hours. CARDIAC: No results for input(s): "CKMB", "CKMBP", "TROPT", "PBNP" in the last 168 hours. DATA: Diagnostic tests reviewed for today's visit: Most recent labs and imaging results. Most recent EKG Urine Culture: Positive Micro-30 Days Procedure Component Value Units Date/Time Blood Culture [[id number]] (Abnormal) Collected: 07/18/241619 Order Status: Completed Specimen: Blood Updated: 07/19/24 1218 Gram Stain Gram positive cocci in clusters Blood Culture Identification Panel [[id number]] (Abnormal) Collected: 07/18/24 162 Order Status: Completed Specimen: Blood Updated: 07/19/24 1416 Interpretation Methicillin-resistant Staphylococcus epidermidis (MRSE) detected by PCR. Single positive cultures of S. epidermidis usually represent contamination. Call lab within 72 hours if further work up is required. Blood Culture: Positive Micro-30 Days Procedure Component Value Uni (more content not included)...[facility] 07-19-2024 NoteHNO ID: [id number] Author: LIZZY RODRÍGUEZ RT(R) Service: Radiology Author Type: Technologist Type: Progress Notes Filed: 07/19/2024 07:18 Note Text: Summary: MRI RADIOLOGY SERVICE PROGRESS NOTE DATE OF SERVICE: July 19, 2024 TIME OF SERVICE: 07:17 EVENT: 2nd Request for MRI Screening Sheet. ADDITIONAL EVENT DETAILS: N/A SIGNATURE: RT Tristian(R)(MR) PATIENT NAME: iCro Hawkins DATE: July 19, 2024 TIME: 7:17 AM PAGER/CONTACT #:[facility]03-28-2025 NoteHNO ID: [id number] Author: MARII NGUYEN RN Service: Nursing Author Type: Registered Nurse Type: Nursing Progress Note Filed: 2024 22:40 Note Text: Pt bp elevated [facility]03-28-2025 NoteHNO ID: [id number] Author: MARII NGUYEN RN Service: Nursing Author Type: Registered Nurse Type: Nursing Progress Note Filed: 2024 20:16 Note Text: Prn bp [facility]03-28-2025 NoteHNO ID: [id number] Author: SAMIRA WEAVER RT(R) Service: ? Author Type: Technologist Type: Progress Notes Filed: 2024 19:25 Note Text: Summary: MRI RADIOLOGY SERVICE PROGRESS NOTE DATE OF SERVICE: 2024 TIME OF SERVICE: 1923 EVENT: EXAM/PROCEDURE NOT COMPLETED - NEED COMPLETED MRI SAFETY SCREENING FORM ADDITIONAL EVENT DETAILS: N/A SIGNATURE: RT Raya(R) PATIENT NAME: Ciro Hawkins DATE: 2024 TIME: 7:24 PM PAGER/CONTACT #:[facility]03-28-2025 NoteHNO ID: [id number] Author: POLY CASTRO RPh Service: Pharmacy Author Type: Pharmacist Type: Plan of Care Filed: 2024 16:46 Note Text: PHARMACY MEDICATION REVIEW Patient Name: Ciro Hawkins : 1965 The below information represents the best possible medication history: Yes Medication history completed by: ED Pharmacist Poly Castro RPh Source of history: senior living/Other [facility] medication list Medication nonadherence identified: Unable to assess Preferred outpatient pharmacy: [facility] Allergies: No Known Allergies Prior to Admission Medications Prescriptions Last Dose Informant Patient Reported? Taking? acetaminophen (TYLENOL) 325 mg tablet Yes Yes Sig: Take 650 mg by mouth every 4 hours as needed for pain. aluminum-magnesium hydroxide-simethicone (MAALOX ADVANCED) 200-200-20 mg/5 mL suspension Yes Yes Sig: Take 15 mL by mouth every 4 hours as needed (indigestion). atorvastatin (LIPITOR) 20 mg tablet 07/17/2024 Yes Yes Sig: Take 20 mg by mouth once daily. bisacodyl (DULCOLAX) 10 mg supp Yes Yes Si mg by RECTAL route once daily as needed for constipation. cephALEXin (KEFLEX) 500 mg capsule 07/17/2024 Yes Yes Sig: Take 500 mg by mouth four times daily. cholecalciferol (VITAMIN D) 1,000 unit tab tablet Yes Yes Sig: Take 1,000 Units by mouth once daily. cloNIDine HCl (CATAPRES) 0.1 mg tablet Yes Yes Sig: Take 0.1 mg by mouth every 12 hours as needed (SBP >150). cloNIDine TTS (CATAPRES-TTS) 0.3 mg/24 hr 07/15/2024 Yes Yes Sig: Apply 1 Patch as directed one time a week. Change on Tuesdays dapagliflozin propanediol (FARXIGA) 10 mg tablet Yes Yes Sig: Take 10 mg by mouth daily with breakfast. docusate sodium (COLACE) 100 mg capsule Yes Yes Sig: Take 100 mg by mouth two times a day. glucagon (GLUCAGEN) 1 mg/mL injection Yes Yes Sig: Inject 1 mg intramuscularly as needed (hypoglycemia). guaiFENesin-dextromethorphan (ROBITUSSIN DM) 100-10 mg/5 mL syrup Yes Yes Sig: Take 5 mL by mouth every 4 hours as needed for cough. hydrALAZINE (APRESOLINE) 10 mg tablet Yes Yes Sig: Take 10 mg by mouth three times a day. insulin glargine,hum.rec.anlog (LANTUS SOLOSTAR U-100 INSULIN SUBCUTANEOUS) Yes Yes Sig: Inject 14 Units subcutaneously two times a day. insulin lispro (HUMALOG U-100 INSULIN) 100 unit/mL injection No Yes Sig: Inject 8 units subcutaneously 3 times daily before meals. Patient taking differently: Inject 2-10 Units subcutaneously three times a day before meals. Sliding scale insulin Blood glucose 151-200 2 units sc Blood glucose 201-250 4 units sc Blood glucose 251-300 6 units sc Blood glucose 301-350 8 units sc Blood glucose 351-400 10 units sc ketoconazole (NIZORAL) 2 % shampoo Yes Yes Sig: Apply 1 Application to affected area once daily. APPLY TO SCALP AND EARS loperamide HCl (IMODIUM) 2 mg tab Yes Yes Sig: Take 2 mg by mouth as needed (loose stool). ondansetron (ZOFRAN) 4 mg tablet Yes Yes Sig: Take 4 mg by mouth every 6 hours as needed for nausea/vomiting. semaglutide (OZEMPIC) 0.25 mg or 0.5 mg (2 mg/3 mL) pen Yes Yes Sig: Inject 0.5 mg subcutaneously one time a week. Take on sodium chloride 0.65 % nasal spray Yes Yes Sig: Use 1 [place] in the nose every 6 hours as needed for cold/allergy symptoms. traMADol (ULTRAM) 50 mg tablet Yes Yes Sig: Take 50 mg by mouth every 8 hours as needed for pain. Facility-Administered Medications: None Poly CastroChandan 2024[facility]03-28-2025 [id number] (AGENT OF COVID-19) RNA: Not detected INFLUENZA A RNA: Not detected INFLUENZA B RNA: Not detected RESPIRATORY SYNCYTIAL VIRUS (RSV) RNA: Not detectedWoodland Park HospitalComment on above:Performed By: #### [id number] ####[facility] LABORATORYCLIA [id number] [address]03-21-2025 History of Present illness Narrative* Brent Wakefield MD - 07/11/2024 9:30 AM EDT Office Visit Note Date: 07/11/2024 Surgeon: Brent Wakefield MD Office Location: [address] [address] Dept: [phone] Dept Referring Provider: Cesar Broderick MD [address] [place] [address] [facility] [address] Ciro Hawkins is a 58 y.o. male who presents for the following: MOHS Surgery According to the patient, the lesion has been present for approximately greater than 1 year at the time of diagnosis. The lesion is itchy and painful. The lesion has not been treated previously. The patient does not have a pacemaker / defibrillator. The patient does not have a heart valve / joint replacement. The patient is not on blood thinners. The patient does not have a history of hepatitis B or C. The patient does not have a history of HIV. The patient does not have a history of immunosuppression (e.g. organ transplantation, malignancy, medications) Review of Systems: No other skin or systemic complaints other than what is documented elsewhere in the note. MEDICAL HISTORY: clinically relevant history including significant past medical history, medications and allergies was reviewed and documented in Epic. Objective Well appearing patient in no apparent distress; mood and affect are within normal limits. Vital signs: See record. Noted on the Left Upper Arm - Posterior Is a 4 x 3 cm pink plaque The patient confirmed the identified site. Discussion: The nature of the diagnosis was explained. The lesion is a skin cancer. It has a risk of local growth and distant spread. The condition is associated with sun exposure. Warning signs of non-melanoma skin cancer discussed. Patient was instructed to perform monthly self skin examination. We recommended that the patient have regular full skin exams given an increased risk of subsequent skin cancers. The patient was instructed to use sun protective behaviors including use of broad spectrum sunscreens and sun protective clothing to reduce risk of skin cancers. Risks, benefits, side effects of Mohs surgery were discussed with patient and the patient voiced understanding. It was explained that even though the cure rate of Mohs is very high it is not 100%. Risks of surgery including but not limited to bleeding, infection, numbness, nerve damage, and scar were reviewed. Discussion included wound care requirements, activity restrictions, likely scar outcomeand time to heal. After Mohs surgery, the defect may need to be repaired surgically and the scar may be longer than the original lesion. Reconstruction options, risks, and benefits were reviewed including second intention healing, linear repair (4-1 ratio was explained), local flaps, skin grafts, cartilage grafts and interpolation flaps (the need for multiple surgeries was explained). Possible outcomes were reviewed including likely scar appearance, failure of flap survival, infection, bleeding and the need for revision surgery. The pathology was reviewed, the photograph was reviewed, and the referring physician's note was reviewed. Patient elected for Mohs surgery. * Brent Wakefield MD - 07/11/2024 9:30 AM EDT Images from the original note were not included. Mohs Surgery Operative Note Date of Surgery: 07/11/2024 Surgeon: Brent Wakefield MD Office Location: [address] [facility] [address] Dept: [phone] Dept Referring Provider: Cesar Broderick MD [address] [place] [address] Dr Jojo Coffman Bowman, [address] [address] Assessment/Plan Pre-procedure: Obtained informed consent: written from patient The surgical site was identified and confirmed with the patient. Intra-operative: Audible time out called at : 10:35 AM 07/11/24 by: Latasha Lambert RN Verified patient name, birthdate, site, specimen bottle label & requisition. The planned procedure(s) was again reviewed with the patient. The risks of bleeding, infection, nerve damage and scarring were reviewed. Written authorization was obtained. The patient identity, surgical site, and planned procedure(s) were verified. The provider acted as both surgeon and pathologist. 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 Left Upper Arm - Posterior Mohs surgery Consent obtained: written [place] Protocol: Procedure explained and questions answered to patient or proxy's satisfaction: Yes Test results available and properly labeled: Yes Pathology report reviewed: Yes External notes reviewed: Yes Photo or diagram used for site identification: Yes Site/side marked: Yes Slide independently reviewed by Mohs surgeon: Yes Immediately prior to procedure a time out was called: Yes Patient identity confirmed: verbally with patient Preparation: Patient was prepped and draped in usual sterile fashion Anticoagulation: Is the patient taking prescription anticoagulant and/or aspirin prescribed/recommended by a physician? No Was the anticoagulation regimen changed prior to Mohs? No Anesthesia: Anesthesia method: local infiltration Local anesthetic: lidocaine 1% WITH epi Procedure Details: Case ID Number: [id number] Biopsy accession number: [id number] Date of biopsy: 03/06/2023 Pre-Op diagnosis: squamous cell carcinoma SCC subtype: in situ Surgical site (from skin exam): Left Upper Arm - Posterior Pre-operative length (cm): 4 Pre-operative width (cm): 3 Indications for Mohs surgery: tumor size greater than 2 cm Previously treated? No Micrographic Surgery Details: Post-operative length (cm): 4.8 Post-operative width (cm): 3.8 Number of Mohs stages: 1 Stage 1 Comments: The patient was brought into the operating room and placed in the procedure chair in the appropriate position. The area positive by previous biopsy was identified and confirmed with the patient. The area of clinically obvious tumor was debulked using a curette and/or scalpel as needed. Anincision was made following the Mohs approach through the skin. The specimen was taken to the lab, divided into 6 piece(s) and appropriately chromacoded and processed. Tumor features identified on Mohs section: no tumor identified Depth of defect: subcutaneous fat Patient tolerance of procedure: tolerated well, no immediate complications Reconstruction: Was the defect reconstructed? Yes Was reconstruction performed by the same Mohs surgeon? Yes Setting of reconstruction: outpatient office When was reconstruction performed? same day Type of reconstruction: linear Linear reconstruction: intermediate Length of linear repair (cm): 8.5 Subcutaneous Layers (Deep Stitches) Suture size: 4-0 and 3-0 Suture type: Vicryl Stitches: Buried vertical mattress Fine/surface layer approximation (top stitches) Epidermal/Superficial suture size: 5-0 Epidermal/Superficial suture type: Fast-absorbing gut Stitches: simple interrupted and simple running Outcome: patient tolerated procedure well with no complications Post-procedure details: sterile dressing applied and wound care instructions given Dressing type: pressure dressing Staff Communication: Dermatology Local Anesthesia: Site Location: left upper arm-posterior 1 % Lidocaine / Epinephrine - Amount: 15ml Intermediate Linear Repair: Given the location and size of the defect, it was determined that an intermediate layered linear closure was required to restore normal anatomy and function. The repair isan intermediate closure as two layers of sutures were required. The defect was undermined extensively at the level of the subcutaneous plane. Standing cutaneous cones were removed using Burow's triangles. The wound edges were brought into close approximation with buried vertical mattress sutures. The remainder of the wound was then closed with epidermal top sutures. The final repair measured 8.5 cm Wound care was discussed, and the patient was given written post-operative wound care instructions. The patient will follow up with Brent Wakefield MD as needed for any post operative problems or concerns, and will follow up with their primary tip stitcher as scheduled. documented in this [facility] Work Phone: [phone] 990-608501-29-2025 History of Present illness Narrative* Cesar Broderick MD - 05/21/2024 9:45 AM EST Images from the original note were not included. Subjective Ciro Hawkins is a 58 y.o. male who presents for the following: Skin Check. He notes a new red, scaly area on his right forearm, which has been present for a few months and does not heal. He also notes a dry, flaky scalp. He denies any other new, changing, or concerning skin lesions; no bleeding, itching, or burning lesions. Review of Systems: No other skin or systemic complaints other than what is documented elsewhere in the note. The following portions of the chart were reviewed this encounter and updated as appropriate: Skin Cancer History Biopsy Date Type Location Status 03/06/23 SCC in Situ Left Upper Arm - Posterior Unable to Contact Patient 08/31/23 SCC in Situ Left Antecubital Fossa Treatment Complete 08/31/23 BCC, Superficial Left Upper Back Treatment Complete 08/31/23 SCC in Situ Left Wrist - Posterior Refer Mohs/Surgeon 08/31/23 SCC in Situ Left Hand - Posterior Refer Mohs/Surgeon Specialty Problems Dermatology Problems Skin cancer of arm, unspecified laterality Past Dermatologic / Past Relevant Medical History: - 3 biopsy-proven SCCs in situ on left wrist - posterior, left hand - posterior, and left antecubital fossa and BCC on left upper back all [address] Brock on 08/31/23 and pending definitive treatment, pending definitive treatment, ED&C by Dr. Brock on 10/02/23, and ED&C by Dr. Brock on 10/02/23, respectively - biopsy-proven SCC in situ on left upper arm - posterior diagnosed by Dr. 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 Current Medications / CAM's: Current Outpatient Medications: acetaminophen (Tylenol) 325 mg tablet, Take 2 tablets (650 mg) by mouth every 4 hours if needed., Disp: , Rfl: Anti-DiarrheaL, loperamide, 2 mg tablet, , Disp: , Rfl: atorvastatin (Lipitor) 20 mg tablet, Take 1 tablet (20 mg) by mouth once daily., Disp: , Rfl: bisacodyl (Dulcolax, bisacodyl,) 10 mg suppository, Insert 1 suppository (10 mg) into the rectum once daily as needed for constipation., Disp: , Rfl: cloNIDine (Catapres) 0.1 mg tablet, Take 1 tablet (0.1 mg) by mouth 2 times a day as needed for high blood pressure (HTN SBP GREATER THAN 150)., Disp: , Rfl: cloNIDine (Catapres-TTS) 0.3 mg/24 hr patch, Place 1 patch on the skin 1 (one) time per week. Applyone patach on the skin and replace every 7 days, as directed, EVERY SUNDAY, Disp: , Rfl: dapagliflozin propanediol (Farxiga) 10 mg, Take 1 tablet (10 mg) by mouth once daily., Disp: 90 tablet, Rfl: 3 docusate sodium (Colace) 100 mg capsule, Take 1 capsule (100 mg) by mouth 2 times a day., Disp: , Rfl: furosemide (Lasix) 40 mg tablet, Take 1 tablet (40 mg) by mouth once daily., Disp: 90 tablet, Rfl: 3 HumaLOG KwikPen Insulin 100 unit/mL injection, , Disp: , Rfl: hydrALAZINE (Apresoline) 50 mg tablet, Take 1 tablet (50 mg) by mouth 3 times a day., Disp: , Rfl: hydrocortisone 2.5 % cream, , Disp: , Rfl: insulin glargine (Lantus U-100 Insulin) 100 unit/mL injection, Inject 18 Units under the skin once daily in the morning. Take as directed per insulin instructions., Disp: , Rfl: magnesium hydroxide (Milk of Magnesia) 2,400 mg/10 mL suspension suspension, Take 30 mL by mouth., Disp: , Rfl: metoprolol succinate XL (Toprol-XL) 200 mg 24 hr tablet, Take 1 tablet (200 mg) by mouth once daily. Do not crush or chew. HOLD FOR HEART RATE LESS THAN 60, Disp: , Rfl: Vitamin D3 10 mcg (400 unit) tablet, , Disp: , Rfl: ketoconazole (NIZOral) 2 % shampoo, Wash affected areas of scalp 2-3 times weekly as directed, Disp: 120 mL, Rfl: 11 Objective Well appearing patient in no apparent distress; mood and affect are within normal limits. A waist-up examination was performed including scalp, face, eyes, ears, nose, lips, neck, chest, axillae, abdomen, back, and bilateral upper extremities. All findings within normal limits unless otherwise noted below. Assessment/Plan 1. Neoplasm of uncertain behavior of skin (3) left lateral distal arm, adjacent to scar 7 mm pink, scaly papule adjacent to scar Shave removal Lesion length (cm): 0.7 Lesion width (cm): 0.7 Margin per side (cm): 0 Lesion diameter (cm): 0.7 Informed consent: discussed and consent obtained Timeout: patient name, date of , surgical site, and procedure verified Procedure prep: Patient was prepped and draped Anesthesia: the lesion was anesthetized in a standard fashion Anesthetic: 1% lidocaine w/ epinephrine 1-100,000 local infiltration Instrument used: flexible razor blade Hemostasis achieved with: aluminum chloride Outcome: patient tolerated procedure well Post-procedure details: sterile dressing applied and wound care instructions given Dressing type: bandage and petrolatum Specimen 1 - Dermatopathology- DERM LAB Differential Diagnosis: r/o SCCIS, adjacent to ED&C scar Check Margins Yes/No?: Comments: Dermpath Lab: Routine Histopathology (formalin-fixed tissue) right lateral dorsal mid forearm 6 mm erythematous, scaly papule Shave removal Lesion length (cm): 0.6 Lesion width (cm): 0.6 Margin per side (cm): 0 Lesion diameter (cm): 0.6 Informed consent: discussed and consent obtained Timeout: patient name, date of , surgical site, and procedure verified Procedure prep: Patient was prepped and draped Anesthesia: the lesion was anesthetized in a standard fashion Anesthetic: 1% lidocaine w/ epinephrine 1-100,000 local infiltration Instrument used: flexible razor blade Hemostasis achieved with: aluminum chloride Outcome: patient tolerated procedure well Post-procedure details: sterile dressing applied and wound care instructions given Dressing type: bandage and petrolatum Specimen 2 - Dermatopathology- DERM LAB Differential Diagnosis: r/o SCC Check Margins Yes/No?: Comments: Dermpath Lab: Routine Histopathology (formalin-fixed tissue) left medial upper back 6 mm dark brown pigmented, asymmetric macule with an asymmetric pigment network and irregular borders Shave removal Lesion length (cm): 0.6 Lesion width (cm): 0.6 Margin per side (cm): 0.2 Lesion diameter (cm): 1 Informed consent: discussed and consent obtained Timeout: patient name, date of , surgical site, and procedure verified Procedure prep: Patient was prepped and draped Anesthesia: the lesion was anesthetized in a standard fashion Anesthetic: 1% lidocaine w/ epinephrine 1-100,000 local infiltration Instrument used: flexible razor blade Hemostasis achieved with: aluminum chloride Outcome: patient tolerated procedure well Post-procedure details: sterile dressing applied and wound care instructions given Dressing type: bandage and petrolatum Specimen 3 - Dermatopathology- DERM LAB Differential Diagnosis: r/o dysplastic nevus Check Margins Yes/No?: Comments: Dermpath Lab: Routine Histopathology (formalin-fixed tissue) 2. Actinic keratosis (2) Left Malar Cheek, Right Malar Cheek On his left lateral upper cheek and right upper cheek, there are 2 erythematous, gritty, scaly macules Actinic Keratoses -left lateral upper cheek and right upper cheek. The pre- cancerous nature of these lesions and treatment options were discussed with the patient today. At this time, we recommend treatment with liquid nitrogen cryotherapy. The patient expressed understanding, is in agreement with this plan, and wishes to proceed with cryotherapy today. Destr of lesion - Left Malar Cheek, Right Malar Cheek Complexity: simple Destruction method: cryotherapy Informed consent: discussed and consent obtained Lesion destroyed using liquid nitrogen: Yes Cryotherapy cycles: 1 Outcome: patient tolerated procedure well with no complications Post-procedure details: wound care instructions given 3. 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 Brock on 03/06/23) and left wrist - posterior and left hand - posterior (both diagnosed by Dr. Brock on08/31/23) and all 3 pending definitive treatment. The malignant nature of SCC in situ, the need for further definitive treatment of these 3 lesions, and management options were discussed extensively with the patient in the office today. At this time, we recommend referral to our Dermatologic surgeryunit for definitive treatment of these 3 SCCs in situ, likely with Mohs surgery. The patient expressed understanding and is in agreement with this plan. Thus, a referral was submitted on his behalf today. He expressed understanding, is in agreement with this plan, and will anticipate a phone call from our surgery unit within the next 1 to 2 weeks to schedule his surgeries. Related Procedures Referral to Dermatology - Mohs Surgery 4. Seborrheic dermatitis Scalp On the patient's scalp, there are pink, scaly patches with whitish-yellowish, greasy scale Seborrheic Dermatitis - scalp. The potentially chronic and intermittently flaring nature of this condition and treatment options were discussed extensively with the patient today. At this time, we recommend topical anti- fungal therapy with Ketoconazole 2% shampoo, which the patient was instructed to use 2-3 days per week, alternating with [id number] anti-dandruff shampoos, such as Head & Shoulders, Selsun Blue, and Neutrogena T-gel, every month. The risks, benefits, and side effects of this medication were discussed. The patient expressed understanding and is in agreement with this plan. ketoconazole (NIZOral) 2 % shampoo - Scalp Wash affected areas of scalp 2-3 times weekly as directed 5. Melanocytic nevus, unspecified location Scattered on the patient's face, neck, trunk, and bilateral upper extremities, there are several small, round- to oval-shaped, brown-pigmented and pink- colored, symmetric, uniform-appearing macules and dome-shaped papules Clinically benign- to slightly atypical-appearing nevi - the clinically benign- to slightly atypical-appearing nature of the remainder of the patient's nevi was discussed with the patient today. Noneof the patient's nevi, with the exception of the one noted above, meet threshold for biopsy today. We emphasized the importance of performing monthly self-skin exams using the ABCDs of monitoring moles, which were reviewed with the patient today and an informational hand-out provided. We also emphasized the importance of sun avoidance and sun protection with daily sunscreen use. 6. Hemangioma of skin Scattered on the patient's face, neck, trunk, and bilateral upper extremities, there are multiple small, round, douglsa red- to purplish-colored, symmetric, uniform, vascular-appearing macules and papules Douglas Angiomas - the benign nature of these vascular lesions was discussed with the patient today and reassurance provided. No treatment is medically indicated for these lesions at this time. 7. Seborrheic keratosis Scattered on the patient's face, neck, trunk, and bilateral upper extremities, there are multiple bundy- to light brown-colored, hyperkeratotic, stuck-on appearing papules of varying size and shape Seborrheic Keratoses - the benign nature of these lesions was discussed with the patient today and reassurance provided. No treatment is medically indicated for these lesions at this time. 8. History of nonmelanoma skin cancer On his left upper back and left antecubital fossa, there are well-healed scars with no evidence of recurrent growth on exam today. History of nonmelanoma skin cancers and photodamage. There is no evidence of recurrence at the sites of the patient's previously treated NMSCs on exam today. The signs and symptoms of skin cancer were reviewed and the patient was advised to practice sun protection and sun avoidance, use daily sunscreen, and perform regular self skin exams. We will have the patient return to our office in 4-6 months, pending the above biopsy results, for routine follow-up and skin exam, and the patient was instructed to call our office should the patient notice any new, changing, symptomatic, or otherwise concerning skin lesions before then. The patient expressed understanding and is in agreement with this plan. 9. Diffuse photodamage of skin Photodistributed Diffuse photodamage with actinic changes with telangiectasia and mottled pigmentation in sun-exposed areas. Photodamage. The signs and symptoms of skin cancer were reviewed and the patient was advised to practice sun protection and sun avoidance, use daily sunscreen, and perform regular self skin exams. Sun protection was discussed, including avoiding the mid-day sun, wearing a sunscreen with SPF at least 50, and stressing the need for reapplication of sunscreen and applying more than they think they need. Provided written update for [facility]. >50 min total time. Seen and discussed with attending physician Dr. Meggan Nguyen MD, PhD Resident, Dermatology I saw and evaluated the patient. I personally obtained the hernández and critical portions of the historyand physical exam or was physically present for hernández and critical portions performed by the resident/fellow. I reviewed the resident/fellow's documentation and discussed the patient with the resident/f jolanta. I agree with the resident/fellow's medical decision making as documented in the note. Cesar Broderick MD documented in this [facility] Work Phone: 1(883) 571-249701-08-2025 History of Present illness Narrative* Bobby Tracey, DO - 04/30/2024 11:00 AM EST Subjective He is feeling pretty well BP is 142/86 Swelling is minimal today Tolerating new meds well Patient ID: Ciro Hawkins is a 58 y.o. male who presents for Follow-up (1 month/Review Labs & Renal US). HPI Is here for follow-up secondary to chronic kidney disease his baseline creatinine appears to be about 4. We started him on Farxiga. We added Lasix. Labs were repeated yesterday. His metabolic panel shows a glucose of 141 sodium 137 potassium 4.2 bicarb 26 BUN 33 with a creatinine of 2.2 estimated GFR is 37 LFTs are pretty unremarkable [id number] is 8.1 I do not have a urine albumin creatinine ratio Renal ultrasound looks pretty unremarkable left kidney is 11 cm right kidney is 11.7 cm Medications are reviewed currently on a statin clonidine Farxiga Lasix insulin hydralazine metoprolol vitamin D Review of Systems Constitutional: Negative. HENT: Negative. Eyes: Negative. Respiratory: Negative. Cardiovascular: Negative. Gastrointestinal: Negative. Endocrine: Negative. Genitourinary: Negative. Musculoskeletal: Negative. Skin: Negative. Allergic/Immunologic: Negative. Neurological: Negative. Hematological: Negative. Psychiatric/Behavioral: Negative. Objective Physical Exam Constitutional: Appearance: Normal appearance. HENT: Head: Normocephalic and atraumatic. Right Ear: External ear normal. Left Ear: External ear normal. Nose: Nose normal. Mouth/Throat: Mouth: Mucous membranes are moist. Pharynx: Oropharynx is clear. Eyes: Extraocular Movements: Extraocular movements intact. Conjunctiva/sclera: Conjunctivae normal. Pupils: Pupils are equal, round, and reactive to light. Cardiovascular: Rate and Rhythm: Normal rate and regular rhythm. Pulmonary: Effort: Pulmonary effort is normal. Breath sounds: Normal breath sounds. Abdominal: General: Abdomen is flat. Palpations: Abdomen is soft. Musculoskeletal: General: Swelling present. Comments: Very minimal edema, slight B/L LE Skin: General: Skin is warm and dry. Neurological: General: No focal deficit present. Mental Status: He is alert and oriented to person, place, and time. Psychiatric: Mood and Affect: Mood normal. Behavior: Behavior normal. Assessment/Plan Problem List Items Addressed This Visit ICD-10-CM Hypertension I10 Hyperlipidemia E78.5 Stage 3b chronic kidney disease (Multi) - Primary N18.32 Relevant Orders Follow Up In Nephrology Basic metabolic panel Albumin-Creatinine Ratio, Urine Random Urinalysis with Reflex Microscopic Plan: Renal function stable at about 2 On SGLT2 with decent DM control so continue BP is acceptable for now. We may start ACEI/ARB next time if stays stable. Did not get ALB/Cre ratio. Will reorder for next visit Continue rest of Medical managemetn as on. Encouraged good DM cotnrol On Statin Chronic kidney disease stage IIIb/IV with baseline creatinine it appears about 2 Hypertension on clonidine and hydralazine with lasix Diabetes mellitus type 2 on insulin Peripheral Edema with Volume Overload Stroke with Right UE weakness Dyslipidemia on a statin. Bobby Tracey DO 04/30/24 11:10 AM documented in this [facility] Work Phone: 1([phone]) 160-460112-05-2024 History of Present illness Narrative* Bobby Tracey DO - 03/27/2024 11:30 AM EST Subjective He is in assisted living. He had a stroke 3 years ago. He says he urinates ok. DM since 28 y/o. Bp is ok at this time. Patient ID: Ciro Hawkins is a 58 y.o. male who presents for Consult (Chronic kidney disease ). HPI He is here for new patient visit He was referred here secondary to chronic kidney disease My evaluation and plan is medicated back via the electronic medical record. He has labs that were brought with him from a nursing facility. These were collected on March 10 His metabolic panel shows potassium of 5 his bicarb is 23 his BUN is 38 with a creatinine of 2.1 estimated GFR is 39 lipid panel does not look too bad hemoglobin is 11.1 that is all of the lab work we have at this time In the system he had labs drawn back in October that showed a potassium of 5.3 BUN was 34 with a creatinine of 1.97 so it appears that his renal function is pretty stable over the past 6 months with creatinine right about 2 Hemoglobin back then was 10.9 No imaging of the kidneys Medications are reviewed he is on clonidine insulin metoprolol Lokelma a statin hydralazine vitaminD Blood pressure is 136/76 Review of Systems Constitutional: Negative. HENT: Negative. Eyes: Negative. Respiratory: Negative. Cardiovascular: Negative. Gastrointestinal: Negative. Endocrine: Negative. Genitourinary: Negative. Musculoskeletal: Negative. Skin: Negative. Allergic/Immunologic: Negative. Neurological: Positive for weakness. Hematological: Negative. Psychiatric/Behavioral: Negative. Objective Physical Exam Constitutional: Appearance: Normal appearance. HENT: Head: Normocephalic and atraumatic. Right Ear: External ear normal. Left Ear: External ear normal. Nose: Nose normal. Mouth/Throat: Mouth: Mucous membranes are moist. Pharynx: Oropharynx is clear. Eyes: Extraocular Movements: Extraocular movements intact. Conjunctiva/sclera: Conjunctivae normal. Pupils: Pupils are equal, round, and reactive to light. Cardiovascular: Rate and Rhythm: Normal rate and regular rhythm. Pulmonary: Effort: Pulmonary effort is normal. Breath sounds: Normal breath sounds. Abdominal: General: Abdomen is flat. Palpations: Abdomen is soft. Musculoskeletal: General: Swelling present. Right lower leg: Edema present. Left lower leg: Edema present. Skin: General: Skin is warm and dry. Neurological: General: No focal deficit present. Mental Status: He is alert and oriented to person, place, and time. Comments: Right arm is weak and cannot lift above shoulder. Psychiatric: Mood and Affect: Mood normal. Behavior: Behavior normal. Assessment/Plan Problem List Items Addressed This Visit ICD-10-CM Hypertension I10 Relevant Medications furosemide (Lasix) 40 mg tablet Type 2 diabetes mellitus E11.9 Relevant Medications dapagliflozin propanediol (Farxiga) 10 mg Other Relevant Orders Hemoglobin A1c Stage 3b chronic kidney disease (Multi) - Primary N18.32 Relevant Medications dapagliflozin propanediol (Farxiga) 10 mg Other Relevant Orders Follow Up In Nephrology Comprehensive metabolic panel Albumin-Creatinine Ratio, Urine Random Urinalysis with Reflex Microscopic US renal complete Plan: Appears to have at least > 6 months renal function about creat of 2. Get a Renal US Check Ualb/Creat ratio Check A1C Has DM for > 30 years. On Insulin. No recent DKA he can tell me Continue good control we will check A1C. Start Farxiga BP was very elevated in the past. Currently good on hydralazine and Clonidine, Metoprolol. Add lasix daily Has peripheral Edema with Elevated K Start Lasix. Stop Lokelma. F/U in 1 month with results and then will decide on further adjustments. Chronic kidney disease stage IIIb/IV with baseline creatinine it appears about 2 Relative hyperkalemia Relative metabolic acidosis Hypertension on clonidine Diabetes mellitus type 2 on insulin Peripheral Edema with Volume Overload Stroke with Right UE weakness Dyslipidemia on a statin. Bobby Tracey DO 03/27/24 11:53 AM [facility] Work Phone: 1(326) 224-961207-25-2024 History of Present illness Narrative* Poly Tim MD - 11/15/2023 1:00 PM EDT Left without being seen [facility] Work Phone: 1(946) 114-563306-25-2024 History of Present illness Narrative* Aristeo Brock MD - 10/16/2023 10:30 AM EDT Subjective Kuldip Hawkins is a 58 y.o. male who presents for the following: Suspicious Skin Lesion (Poss cyst on Chest. ILK at at last appt. Pt accompanied by Nitroglycerin Supervisor. ). Review of Systems: No other skin or systemic complaints other than what is documented elsewhere in the note. The following portions of the chart were reviewed this encounter and updated as appropriate: Skin Cancer History Biopsy Date Type Location Status 03/06/23 SCC in Situ Left Upper Arm - Posterior Unable to Contact Patient 08/31/23 SCC in Situ Left Antecubital Fossa Refer Mohs/Surgeon 08/31/23 BCC, Superficial Left Upper Back Follow-up Arranged 08/31/23 SCC in Situ Left Wrist - Posterior Refer Mohs/Surgeon 08/31/23 SCC in Situ Left Hand - Posterior Refer Mohs/Surgeon Specialty Problems Dermatology Problems Skin cancer of arm, unspecified laterality Objective Well appearing patient in no apparent distress; mood and affect are within normal limits. A focused skin examination was performed. All findings within normal limits unless otherwise noted below. Assessment/Plan Patient left without being seen documented [facility]Pro[facility] Work Phone: 1(424) 802-378706-12-2024 NoteHNO ID: [id number] Author: JOSIANE MCCLELLAN PA-C Service: Hospital Medicine Author Type: Physician [employer] Worker Type: Progress Notes Filed: 10/03/2023 21:27 Note Text: Chart reviewed and admission orders placed, prior to being able to see pt he left AMA from the ED.[facility]06-11-2024 History of Present illness Narrative* Aristeo Brock MD - 10/02/2023 1:30 PM EDT Subjective Kuldip Hawkins is a 58 y.o. male who presents for the following: curettage (Left upper back). Review of Systems: No other skin or systemic complaints other than what is documented elsewhere in the note. The following portions of the chart were reviewed this encounter and updated as appropriate: Allergies Meds Problems Med Hx Surg Hx Skin Cancer History Biopsy Date Type Location Status 03/06/23 SCC in Situ Left Upper Arm - Posterior Unable to Contact Patient 08/31/23 SCC in Situ Left Antecubital Fossa Refer Mohs/Surgeon 08/31/23 BCC, Superficial Left Upper Back Follow-up Arranged 08/31/23 SCC in Situ Left Wrist - Posterior Refer Mohs/Surgeon 08/31/23 SCC in Situ Left Hand - Posterior Refer Mohs/Surgeon Specialty Problems Dermatology Problems Skin cancer of arm, unspecified laterality Objective Well appearing patient in no apparent distress; mood and affect are within normal limits. A focused skin examination was performed. All findings within normal limits unless otherwise noted below. Assessment/Plan 1. Basal cell carcinoma (BCC) of skin of left upper extremity including shoulder Left Upper Back 1.8 cm erythematous thin plaque Staff Communication: Dermatology Local Anesthesia: 1 % Lidocaine / Epinephrine - Amount: 3c Lesion length (cm): 1.8 Margin per side (cm): 2 Total excision diameter (cm): 2.2 Informed consent: discussed and consent obtained Timeout: patient name, date of , surgical site, and procedure verified Procedure prep: Patient was prepped and draped Anesthesia: the lesion was anesthetized in a standard fashion Anesthetic: 1% lidocaine w/ epinephrine 1-100,000 local infiltration Hemostasis achieved with: electrodesiccation Outcome: patient tolerated procedure well with no complications Post-procedure details: sterile dressing applied and wound care instructions given Dressing type: pressure dressing Additional details: The lesion was treated via destruction using the electrodesiccation and curettage technique. Three passes were performed. The patient understands that the specimen will not be sent to pathology. The patient was also advised that should the lesion recur, it may be treated with excision or Mohs surgery at that time. Related Procedures Prior Authorization for Skin Excision - Minor Surgery 2. Squamous cell carcinoma in situ Left Antecubital Fossa 1.2cm erythematous thin plaque Lesion length (cm): 1.2 Margin per side (cm): 0.2 Total excision diameter (cm): 1.6 Informed consent: discussed and consent obtained Timeout: patient name, date of , surgical site, and procedure verified Procedure prep: Patient was prepped and draped Anesthesia: the lesion was anesthetized in a standard fashion Anesthetic: 1% lidocaine w/ epinephrine 1-100,000 local infiltration Hemostasis achieved with: electrodesiccation Outcome: patient tolerated procedure well with no complications Post-procedure details: sterile dressing applied and wound care instructions given Dressing type: pressure dressing Additional details: The lesion was treated via destruction using the electrodesiccation and curettage technique. Three passes were performed. The patient understands that the specimen will not be sent to pathology. The patient was also advised that should the lesion recur, it may be treated with excision or Mohs surgery at that time. Staff Communication: Dermatology Local Anesthesia: 1 % Lidocaine / Epinephrine - Amount: 3cc 3. History of nonmelanoma skin cancer Numerous erythematous thin plaques on left upper extremity, previously biopsied Patient is scheduled for Mohs procedure 11/16/23: 1. left posterior upper arm, large diameter SCCis, biopsied 03/06/23 2. Left posterior wrist - SCCis, biopsied 08/31/23 The remainder of the NMSCs biopsied on 08/31/23 were either treated today or are scheduled for ED&C This includes lesions (B) left posterior hand SCCis, (C) left antecubital fossa SCCis, and (D) leftupper back BCC. These do NOT require evaluation or treatment by the Mohs surgery team. 4. Inflamed epidermoid cyst of skin Chest - Medial (Center) Large inflammed cyst Recommend intralesional steroid to calm inflammation. Can review plan for excision after acute inflammation has resolved. Related Medications triamcinolone acetonide (Kenalog) injection 20 mg Follow up in 2 weeks for ED&C of SCCis on left posterior hand. Suman Maier DO, MPH PGY-4, Dept. of Dermatology I was present during all hernández portions of visit including history, exam, discussion/plan and/or procedures and directly supervised our resident during all portions of the visit, follow up care, medications and more Aristeo Brock MD documented in this [facility] Work Phone: 1(219) 948-628905-10-2024 History of Present illness Narrative* Aristeo Brock MD - 08/31/2023 9:45 AM EDT Images from the original note were not included. Subjective Kuldip Hawkins is a 58 y.o. male who presents for the following: Suspicious Skin Lesion (Area to L arm). Review of Systems: No other skin or systemic complaints other than what is documented elsewhere in the note. The following portions of the chart were reviewed this encounter and updated as appropriate: Skin Cancer History Biopsy Date Type Location Status 03/06/23 SCC in Situ Left Upper Arm - Posterior Unable to Contact Patient Specialty Problems Dermatology Problems Skin cancer of arm, unspecified laterality Objective Well appearing patient in no apparent distress; mood and affect are within normal limits. A focused skin examination was performed. All findings within normal limits unless otherwise noted below. Assessment/Plan 1. Neoplasm of uncertain behavior of skin (4) Left Antecubital Fossa Reddish 1cm patch Lesion biopsy Type of biopsy: tangential Informed consent: discussed and consent obtained Timeout: patient name, date of , surgical site, and procedure verified Procedure prep: Patient was prepped and draped Anesthesia: the lesion was anesthetized in a standard fashion Anesthetic: 1% lidocaine w/ epinephrine 1-100,000 local infiltration Instrument used: DermaBlade Hemostasis achieved with: aluminum chloride Outcome: patient tolerated procedure well Post-procedure details: sterile dressing applied and wound care instructions given Dressing type: petrolatum and bandage Staff Communication: Dermatology Local Anesthesia: 1 % Lidocaine / Epinephrine - Amount: Specimen 3 - Dermatopathology- DERM LAB Differential Diagnosis: SCCIS? Check Margins Yes/No?: Comments: Dermpath Lab: Routine Histopathology (formalin-fixed tissue) Left Upper Back Pinkish 1cm Staff Communication: Dermatology Local Anesthesia: 1 % Lidocaine / Epinephrine - Amount: Lesion biopsy Type of biopsy: tangential Informed consent: discussed and consent obtained Timeout: patient name, date of , surgical site, and procedure verified Procedure prep: Patient was prepped and draped Anesthesia: the lesion was anesthetized in a standard fashion Anesthetic: 1% lidocaine w/ epinephrine 1-100,000 local infiltration Instrument used: DermaBlade Hemostasis achieved with: aluminum chloride Outcome: patient tolerated procedure well Post-procedure details: sterile dressing applied and wound care instructions given Dressing type: petrolatum and bandage Specimen 4 - Dermatopathology- DERM LAB Differential Diagnosis: BCC> Check Margins Yes/No?: Comments: Dermpath Lab: Routine Histopathology (formalin-fixed tissue) Left Wrist - Posterior reddishpatch Staff Communication: Dermatology Local Anesthesia: 1 % Lidocaine / Epinephrine - Amount: Lesion biopsy Type of biopsy: tangential Informed consent: discussed and consent obtained Timeout: patient name, date of , surgical site, and procedure verified Procedure prep: Patient was prepped and draped Anesthesia: the lesion was anesthetized in a standard fashion Anesthetic: 1% lidocaine w/ epinephrine 1-100,000 local infiltration Instrument used: DermaBlade Hemostasis achieved with: aluminum chloride Outcome: patient tolerated procedure well Post-procedure details: sterile dressing applied and wound care instructions given Dressing type: petrolatum and bandage Specimen 1 - Dermatopathology- DERM LAB Differential Diagnosis: sccis Check Margins Yes/No?: Comments: Dermpath Lab: Routine Histopathology (formalin-fixed tissue) Left Hand - Posterior reddishpapule Staff Communication: Dermatology Local Anesthesia: 1 % Lidocaine / Epinephrine - Amount: Lesion biopsy Type of biopsy: tangential Informed consent: discussed and consent obtained Timeout: patient name, date of , surgical site, and procedure verified Procedure prep: Patient was prepped and draped Anesthesia: the lesion was anesthetized in a standard fashion Anesthetic: 1% lidocaine w/ epinephrine 1-100,000 local infiltration Instrument used: DermaBlade Hemostasis achieved with: aluminum chloride Outcome: patient tolerated procedure well Post-procedure details: sterile dressing applied and wound care instructions given Dressing type: petrolatum and bandage Specimen 2 - Dermatopathology- DERM LAB Differential Diagnosis: sccis Check Margins Yes/No?: Comments: Dermpath Lab: Routine Histopathology (formalin-fixed tissue) Related Procedures Referral to Dermatology - Mohs Surgery 2. 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 - Anterior SCCIS that needs treating- will schedule mohs I think its too big for me to excise myself Of note, given large number of biopsies and photos: The specimen container location corresponds to the correct location Dont get confused by looking at the initial photograph numbers, go with locations on the labels documented in this [facility] Work Phone: [phone] 312-977202-27-2024 History of Present illness Narrative* Cynthia Diaz, RT(R) - 06/19/2023 10:47 AM EST RADIOLOGY SERVICE PROGRESS NOTE SERVICE DATE: 06/19/2023 SERVICE TIME: 10:47 AM PATIENT IDENTITY VERIFICATION COMPLETED USING TWO (2) STANDARD IDENTIFIERS: Name and Date of confirmed by patient verbally FALL SCREENING: Has the patient had 2 falls in the last year or 1 fall with injury or currently using an Ambulatory Assistive Device (Walker, Cane, Wheelchair, Crutches, etc.)? No PATIENT GENDER DATA: .male ALLERGIES: Reviewed and unchanged MEDICATIONS REVIEWED: No PATIENT RELEVANT IMPLANT DATA REVIEWED: Not Applicable PATIENT PRESENTS WITH AN IMPLANTABLE OR ATTACHED CLEATER: No CREATININE: Creatinine Date Value Ref Range Status 09/17/2022 1.79 (H) 0.50 - 1.40 mg/dL Final Comment: Patients receiving either N-Acetylcysteine (NAC) or Metamizole prior to venipuncture, may have falsely depressed results. 06/05/2022 1.06 0.50 - 1.40 mg/dL Final Comment: Patients receiving either N-Acetylcysteine (NAC) or Metamizole prior to venipuncture, may have falsely depressed results. 06/04/2022 1.20 0.50 - 1.40 mg/dL Final Comment: Patients receiving either N-Acetylcysteine (NAC) or Metamizole prior to venipuncture, may have falsely depressed results. Estimated Glomerular Filtration Rate Date Value Ref Range Status 09/17/2022 43 (L) >=60 mL/min/1.73m Final Comment: Estimated Glomerular Filtration Rate (eGFR) is calculated using the 2020 CKD-EPI creatinine equation. This equation utilizes serum creatinine, sex, and age as parameters. The creatinine assay has traceable calibration to isotope dilution- mass spectrometry. Refer to KDIGO guidelines for clinical interpretation. In patients with unstable renal function, e.g. those with acute kidney injury, the eGFRmay not accurately reflect actual GFR. P.O.C.T. RESULTS: N/A June 19, [address] PERFORMED: No IV SITE: Ambulatory: A peripheral IV was started in the Left hand with a Angio cath: 24 gauge. POST EXAM PIV STATUS: Not applicable PROCEDURE TYPE: NM Stress: 13.4 mCi [id number] was administered IV for Rest Imaging at 837 by Cynthia ALCOCERN. 33.5 mCi [id number] was administered IV for Stress Imaging at 948 by Cynthia BUSTAMANTE. ADMINISTRATION TIME: PATIENT DISCHARGED TO: Ambulatory patient, left NM department area. A Diagnostic radioactive procedure has taken place, with no further precautions necessary other than routine body substance precautions. More information regarding radiation safety can be found usingthis link: [email or web address] SIGNATURE: DOMINGO Wade) PATIENT NAME: Ciro Hawkins DATE: June 19, 2023 TIME: 10:47 AM PAGER/CONTACT #: [facility] Nurse Note* Miracle Mohan RN - 06/19/2023 10:04 AM EST Patient verified by name and . Patient educated on pharmacological stress test with nuclear imaging. Pt verbalized understanding and questions answered. #24 angio started in Left Hand following [facility] protocol. Stress test completed. Please see report in epic. IV discontinued. Patient ambulatory patient. Discharged home after completion of test. No distress noted. [facility] History of Present illness Narrative* Raeann Mccray MD - 03/14/2023 12:27 PM EST Subjective HPI The patient is here in consultation. He was sent by his PCP for complaints of edema. 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 Right arm is edematous. Bilateral legs are edematous. He recently had cellulitis with toe amputation. He performs no regular exercise except for walking in the halls at the assisted living where he stays. He denies any chest pain, shortness of breath, PND or orthopnea. He denies dizziness, palpitations or loss of consciousness. Medical history includes CVA, hypertension, dyslipidemia, diabetes, chronic kidney disease with anemia, and history of alcohol abuse. Surgical history includes removal of skin cancer and toe amputation. He has no known allergies. Medications were reviewed. Father in his 40s from"blood cancer". Mother at age 73 cause unknown. He was an only child. He lives in assisted living. He is on disability. He is . Has never smoked cigarettes. He has a history of substance abuse. He quit drinking alcohol in 2021. He still smokes marijuana rarely Review of Systems Constitutional: Negative for weight loss. HENT: Negative for nosebleeds. Respiratory: Negative for wheezing. Cardiovascular: Positive for leg swelling. Negative for chest pain, palpitations, orthopnea, claudication and PND. Gastrointestinal: Negative for blood in stool. Genitourinary: Negative for hematuria. Musculoskeletal: Positive for joint pain. Negative for falls. Neurological: Positive for focal weakness. Negative for dizziness and loss of consciousness. Endo/Heme/Allergies: Does not bruise/bleed easily. Psychiatric/Behavioral: Negative for memory loss. BP 160/74 Pulse 67 Resp 22 Ht 180.3 cm (5' 11") Wt 107.5 kg (237 lb) SpO2 100% BMI 33.05 kg/m Objective Physical Exam Constitutional: Appearance: He is obese. HENT: Head: Normocephalic. Cardiovascular: Rate and Rhythm: Normal rate and regular rhythm. Heart sounds: Heart sounds are distant. No murmur heard. Pulmonary: Breath sounds: Normal breath sounds. No wheezing or rales. Abdominal: Palpations: Abdomen is soft. Musculoskeletal: Right lower le+ Edema present. Left lower le+ Edema present. Skin: General: Skin is warm and dry. Neurological: Mental Status: He is alert and oriented to person, place, and time. Psychiatric: Mood and Affect: Mood normal. Behavior: Behavior normal. Component Latest Ref Rng & Units 06/01/2022 06/02/2022 06/04/2022 06/05/2022 09/17/2022 WBC 3.70 - 11.00 k/uL 20.20 (H) 18.40 (H) 13.03 (H) 13.50 (H) 11.90 (H) RBC 4.20 - 6.00 m/uL 3.60 (L) 3.23 (L) 3.38 (L) 3.55 (L) 3.10 (L) Hemoglobin 13.0 - 17.0 g/dL 9.8 (L) 8.7 (L) 8.8 (L) 9.6 (L) 8.2 (L) Hematocrit 39.0 - 51.0 % 29.6 (L) 26.4 (L) 29.6 (L) 29.8 (L) 26.2 (L) MCV 80.0 - 100.0 fL 82.2 81.7 87.6 83.9 84.5 MCH 26.0 - 34.0 pg 27.2 26.9 26.0 27.0 26.5 MCHC 30.5 - 36.0 g/dL 33.1 33.0 29.7 (L) 32.2 31.3 RDW-CV 11.5 - 15.0 % 13.4 13.5 13.8 13.8 14.9 Platelet Count 150 - 400 k/uL 504 (H) 442 (H) 288 541 (H) 323 MPV 9.0 - 12.7 fL 9.5 9.5 10.5 9.9 9.8 Neut% % 84.0 73.3 73.0 Abs Neut (ANC) 1.45 - 7.50 k/uL 16.97 (H) 13.50 (H) 8.68 (H) Lymph% % 9.0 12.7 15.1 Abs Lymph 1.00 - 4.00 k/uL 1.82 2.33 1.80 Reeves% % 4.0 11.1 8.9 Abs Reeves <0.87 k/uL 0.81 2.05 (H) 1.06 (H) Eosin% % 2.0 2.0 2.4 Abs Eosin <0.46 k/uL 0.40 0.36 0.28 Baso% % 1.0 0.3 0.3 Abs Baso <0.11 k/uL 0.20 (H) 0.05 0.04 Immature Gran % % 0.6 0.3 IMMATURE GRANS (ABS) <0.10 k/uL 0.11 (H) 0.04 NRBC /100 WBC 0.0 0.0 0.0 Absolute nRBC <0.01 k/uL <0.01 <0.01 <0.01 <0.01 <0.01 Platelet Estimate Increased Increased Red Cell Morph Reviewed: unremarkable Reviewed: see results of individual morphologies Ovalocytes Few DTYPE Manual Auto Auto Protein, Total 6.0 - 8.5 g/dL 7.9 Albumin 3.2 - 5.0 g/dL 2.4 (L) Calcium 8.5 - 10.5 mg/dL 8.6 8.5 8.4 (L) 8.6 Bilirubin, Total 0.2 - 1.0 mg/dL 0.3 Alkaline Phosphatase 45 - 117 U/L 88 AST 8 - 34 U/L 38 (H) ALT 13 - 61 U/L 42 Glucose 70 - 100 mg/dL 297 (H) 256 (H) 179 (H) 97 BUN 7 - 26 mg/dL 40 (H) 34 (H) 19 13 Creatinine 0.50 - 1.40 mg/dL 1.64 (H) 1.48 (H) 1.20 1.06 Sodium 136 - 145 mmol/L 132 (L) 133 (L) 138 143 Potassium 3.5 - 5.1 mmol/L 5.8 (H) 5.1 4.2 4.4 Chloride 98 - 107 mmol/L 101 106 110 (H) 109 (H) CO2 21 - 32 mmol/L 24 22 21 24 Anion Gap 5 - 16 mmol/L 7 5 7 10 eGFR >=60 mL/min/1.73m 48 (L) 55 (L) 70 81 Hemoglobin A1C 4.3 - 6.0 % 10.1 (H) Estimated Average Glucose mg/dL 243 Magnesium 1.6 - 2.6 mg/dL 1.6 COVID 19 Result See comment Not detected Echocardiogram performed today revealed An ejection fraction is 60% with mild LVH. RVSP was 25. EKG performed today revealed sinus rhythm without changes Assessment and plan: #1 edema. Dependent edema in the setting of chronic kidney disease, obesity and amlodipine therapy.He also has a history of cellulitis of the toe and amputation. We'll discontinue amlodipine and changed to hydralazine 50 mg 3 times a day. Good LV function. On Lasix #2 hypertension. Fair blood pressure control 160/74. We will reassess on hydralazine and off of amlodipine. Will check BMP to reassess kidney function on diuretic therapy. #3 CVA. History of CVA with right hemiparesis. Right arm edema. #4 dyslipidemia. On atorvastatin. #5 diabetes. On insulin. Decrease calories. Increase walking and exercise. Lose weight. #6 chronic kidney disease. Chronic kidney disease with anemia. We'll check BMP. May benefit from nephrology consult. Multiple cardiac risk factors. Will arrange stress test. Raeann Mccray M.D. Portions of this note have been composed using voice recognition and may contain care transitions nurse errors. The documentation for this note was completed by Stephen Pritchett RN acting as a scribe for Raeann Zee.Helio #2 [facility] History of Present illness Narrative* Aristeo Brock MD - 03/06/2023 8:15 AM EST Subjective Ciro Hawkins is a 57 y.o. male who presents for the following: Rash (Pt goes by Agustín. Red spot onleft wrist, left shoulder, left arm. Pt lives in assisted living facility ). Review of Systems: No other skin or systemic complaints other than what is documented elsewhere in the note. The following portions of the chart were reviewed this encounter and updated as appropriate: Skin Cancer HistorySubjective Ciro Hawkins is a 57 y.o. male who presents for the following: Rash (Pt goes by Agustín. Red spot onleft wrist, left shoulder, left arm. Pt lives in assisted living facility ). Review of Systems: No other skin or systemic complaints other than what is documented elsewhere in the note. The following portions of the chart were reviewed this encounter and updated as appropriate: Skin Cancer History No skin cancer on file. Specialty Problems None Objective Well appearing patient in no apparent distress; mood and affect are within normal limits. A focused skin examination was performed. (Areas patient pointed to- he requestsed limited exam today) All findings within normal limits unless otherwise noted below. Assessment/Plan 1. Nummular dermatitis Left Forearm - Posterior 2. Dermatitis Left Upper Arm - Posterior Round eczematous patches x 5 on left forearm, wrist, and superior shoulder Skin biopsy - Left Upper Arm - Posterior Type of biopsy: tangential fluocinonide (Lidex) 0.05 % ointment - Left Upper Arm - Posterior Use on the skin daily, thin layer Specimen 1 - Dermatopathology- DERM LAB Differential Diagnosis: nummular derm? Vs tinea vs other, unilateral round reddish eczematous patches Check Margins Yes/No?: Comments: Dermpath Lab: Routine Histopathology (formalin-fixed tissue) No skin cancer on file. Specialty Problems None Objective Well appearing patient in no apparent distress; mood and affect are within normal limits. A focused skin examination was performed. All findings within normal limits unless otherwise noted below. Assessment/Plan 1. Nummular dermatitis Left Forearm - Posterior 2. Dermatitis Left Upper Arm - Posterior Round eczematous patches x 5 on left forearm, wrist, and superior shoulder Skin biopsy - Left Upper Arm - Posterior Type of biopsy: tangential fluocinonide (Lidex) 0.05 % ointment - Left Upper Arm - Posterior Use on the skin daily, thin layer Specimen 1 - Dermatopathology- DERM LAB Differential Diagnosis: nummular derm? Vs tinea vs other, unilateral round reddish eczematous patches Check Margins Yes/No?: Comments: Dermpath Lab: Routine Histopathology (formalin-fixed tissue) Of note, there is a nummular patch on left shoulder and if it doesn't respond to lidex ointment butother spots do, consider biopsy of it because patient believes it feels different than the other ones * Ruma Duffy - 03/06/2023 8:15 AM EST Images from the original note were not included. Subjective Ciro Hawkins is a 57 y.o. male who presents for the following: Rash (Pt goes by Agustín. Red spot onleft wrist, left shoulder, left arm. Pt lives in assisted living facility ). Review of Systems: No other skin or systemic complaints other than what is documented elsewhere in the note. The following portions of the chart were reviewed this encounter and updated as appropriate: Skin Cancer History No skin cancer on file. Specialty Problems None Objective Well appearing patient in no apparent distress; mood and affect are within normal limits. A focused skin examination was performed. All findings within normal limits unless otherwise noted below. Assessment/Plan 1. Nummular dermatitis Left Forearm - Posterior Related Procedures Follow Up In Dermatology - Established Patient 2. Dermatitis Left Upper Arm - Posterior Round eczematous patches x 5 on left forearm, wrist, and superior shoulder Skin biopsy - Left Upper Arm - Posterior Type of biopsy: tangential fluocinonide (Lidex) 0.05 % ointment - Left Upper Arm - Posterior Use on the skin daily, thin layer Specimen 1 - Dermatopathology- DERM LAB Differential Diagnosis: nummular derm? Vs tinea vs other, unilateral round reddish eczematous patches Check Margins Yes/No?: Comments: Dermpath Lab: Routine Histopathology (formalin-fixed tissue) [facility]* Diagnosis Right wrist pain Pain in joint, forearm [facility] Diagnosis Nummular dermatitis- Primary Contact dermatitis and other eczema, due to unspecified cause Dermatitis Contact dermatitis and other eczema, due to unspecified cause documented in this encounter [facility] Work Phone: Evaluation note* Diagnosis Dependent edema- Primary Edema Cerebrovascular accident (CVA), unspecified mechanism (HCC) Anemia in chronic kidney disease, unspecified CKD stage Primary hypertension Unspecified essential hypertension Dyslipidemia Other and unspecified hyperlipidemia [facility]* Diagnosis Encounter for screening for cardiovascular disorders- Primary Screening for other and unspecified cardiovascular conditions documented in this encounter [facility]* Diagnosis Encounter for screening for cardiovascular disorders Screening for other and unspecified cardiovascular conditions documented in this encounter [facility] note* Diagnosis Neoplasm of uncertain behavior of skin- Primary Squamous cell carcinoma in situ (SCCIS) documented in this encounter [facility] Work Phone: Evaluation note* Diagnosis Basal cell carcinoma (BCC) of skin of left upper extremity including shoulder- Primary Squamous cell carcinoma in situ Carcinoma in situ, site unspecified History of nonmelanoma skin cancer Inflamed epidermoid cyst of skin documented in this encounter [facility] Work Phone: Evaluation note* Diagnosis Weakness- Primary Other malaise and fatigue Type 2 diabetes mellitus without complication, with long-term current use of insulin (Multi) Mood disorder ([facility]) Unspecified episodic mood disorder Other secondary hypertension Mixed hyperlipidemia Vitamin D deficiency- Primary Mood disorder ([facility]) Unspecified episodic mood disorder Skin cancer of arm, unspecified laterality Type 2 diabetes mellitus with hyperosmolarity without coma, with long-term current use of insulin (Multi)- Primary Weakness Other malaise and fatigue Vitamin D deficiency Secondary hypertension Other secondary hypertension, unspecified Other hyperlipidemia Mood disorder (CMS-HCC) Unspecified episodic mood disorder Skin lesions Weakness- Primary Other malaise and fatigue Vitamin D deficiency Type 2 diabetes mellitus with ketoacidosis without coma, 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 Skin lesions Mood disorder (CMS-HCC) Unspecified episodic mood disorder Secondary hypertension Other secondary hypertension, unspecified Other hyperlipidemia Vitamin D deficiency- Primary Type 2 diabetes mellitus without complication, with long-term current use of insulin (Multi) Skin lesions Other secondary hypertension Mood disorder (CMS-HCC) Unspecified episodic mood disorder Mixed hyperlipidemia Skin lesions- Primary Type 2 diabetes mellitus without complication, with long-term current use of insulin (Multi) Other secondary hypertension Mood disorder (CMS-HCC) Unspecified episodic mood disorder Type 2 diabetes mellitus without complication, with long-term current use of insulin (Multi)- Primary Vitamin D deficiency Skin lesions Mood disorder ([facility]) Unspecified episodic mood disorder Other secondary hypertension Mixed hyperlipidemia Other secondary hypertension- Primary Mixed hyperlipidemia Skin cancer of arm, unspecified laterality Type 2 diabetes mellitus without complication, with long-term current use of insulin (Multi) Vitamin D deficiency Weakness Other malaise and fatigue [place] disorder [place] Unspecified episodic mood disorder Weakness- Primary Other malaise and fatigue Vitamin D deficiency Type 2 diabetes mellitus without complication, with long-term current use of insulin (Multi) Skin cancer of arm, unspecified laterality Mood disorder [place] Unspecified episodic mood disorder Mixed hyperlipidemia Other secondary hypertension Other secondary hypertension- Primary Mixed hyperlipidemia Type 2 diabetes mellitus without complication, with long-term current use of insulin (Multi) Type 2 diabetes mellitus without complication, with long-term current use of insulin (Multi)- Primary Other secondary hypertension Secondary hypertension- Primary Other secondary hypertension, unspecified Type 2 diabetes mellitus without complication, with long-term current use of insulin (Multi) Secondary hypertension- Primary Other secondary hypertension, unspecified Type 2 diabetes mellitus without complication, with long-term current use of insulin (Multi) Mixed hyperlipidemia Secondary hypertension- Primary Other secondary hypertension, unspecified Type 2 diabetes mellitus without complication, with long-term current use of insulin (Multi) Weakness Other malaise and fatigue Secondary hypertension- Primary Other secondary hypertension, unspecified Mixed hyperlipidemia Type 2 diabetes mellitus without complication, with long-term current use of insulin (Multi) Type 2 diabetes mellitus without complication, with long-term current use of insulin (Multi)- Primary Secondary hypertension Other secondary hypertension, unspecified Mixed hyperlipidemia Weakness Other malaise and fatigue Type 2 diabetes mellitus without complication, with long-term current use of insulin (Multi)- Primary Vitamin D deficiency Weakness Other malaise and fatigue Secondary hypertension Other secondary hypertension, unspecified Mixed hyperlipidemia Skin cancer of arm, unspecified laterality Stage 3b chronic kidney disease (Multi) Abscess- Primary Cellulitis and abscess of unspecified site Secondary hypertension Other secondary hypertension, unspecified Type 2 diabetes mellitus without complication, with long-term current use of insulin (Multi) Abscess- Primary Cellulitis and abscess of unspecified site Secondary hypertension Other secondary hypertension, unspecified Type 2 diabetes mellitus without complication, with long-term current use of insulin (Multi) Weakness- Primary Other malaise and fatigue Vitamin D deficiency Type 2 diabetes mellitus without complication, with long-term current use of insulin (Multi) Stage 3b chronic kidney disease (Multi) Hyperkalemia Hyperpotassemia Secondary hypertension Other secondary hypertension, unspecified Mood disorder (CMS-HCC) Unspecified episodic mood disorder Skin cancer of arm, unspecified laterality Abscess Cellulitis and abscess of unspecified site Weakness- Primary Other malaise and fatigue Type 2 diabetes mellitus without complication, with long-term current use of insulin (Multi) Stage 3b chronic kidney disease (Multi) Hyperkalemia Hyperpotassemia Secondary hypertension Other secondary hypertension, unspecified Mood disorder (CMS-HCC) Unspecified episodic mood disorder Skin cancer of arm, unspecified laterality Mixed hyperlipidemia Stage 3b chronic kidney disease (Multi)- Primary Primary hypertension Unspecified essential hypertension Type 2 diabetes mellitus with stage 3b chronic kidney disease, with long-term current use of insulin (Multi) documented in this [facility] Work Phone: Evaluation note* Diagnosis Scar conditions and fibrosis of skin- Primary Scar condition and fibrosis of skin documented in this encounter [facility] Work Phone: Evaluation note* Diagnosis Weakness- Primary Other malaise and fatigue Type 2 diabetes mellitus without complication, with long-term current use of insulin (Multi) Mood disorder (CMS-HCC) Unspecified episodic mood disorder Other secondary hypertension Mixed hyperlipidemia Vitamin D deficiency- Primary Mood disorder (CMS-HCC) Unspecified episodic mood disorder Skin cancer of arm, unspecified laterality Type 2 diabetes mellitus with hyperosmolarity without coma, with long-term current use of insulin (Multi)- Primary Weakness Other malaise and fatigue Vitamin D deficiency Secondary hypertension Other secondary hypertension, unspecified Other hyperlipidemia Mood disorder (CMS-HCC) Unspecified episodic mood disorder Skin lesions Weakness- Primary Other malaise and fatigue Vitamin D deficiency Type 2 diabetes mellitus with ketoacidosis without coma, 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 (Multi) Skin lesions Mood disorder (CMS-HCC) Unspecified episodic mood disorder Secondary hypertension Other secondary hypertension, unspecified Other hyperlipidemia Vitamin D deficiency- Primary Type 2 diabetes mellitus without complication, with long-term current use of insulin (Multi) Skin lesions Other secondary hypertension Mood disorder (CMS-HCC) Unspecified episodic mood disorder Mixed hyperlipidemia Skin lesions- Primary Type 2 diabetes mellitus without complication, with long-term current use of insulin (Multi) Other secondary hypertension Mood disorder (CMS-HCC) Unspecified episodic mood disorder Type 2 diabetes mellitus without complication, with long-term current use of insulin (Multi)- Primary Vitamin D deficiency Skin lesions Mood disorder ([facility] Unspecified episodic mood disorder Other secondary hypertension Mixed hyperlipidemia Other secondary hypertension- Primary Mixed hyperlipidemia Skin cancer of arm, unspecified laterality Type 2 diabetes mellitus without complication, with long-term current use of insulin (Multi) Vitamin D deficiency Weakness Other malaise and fatigue Mood disorder ([facility]) Unspecified episodic mood disorder Weakness- Primary Other malaise and fatigue Vitamin D deficiency Type 2 diabetes mellitus without complication, with long-term current use of insulin (Multi) Skin cancer of arm, unspecified laterality Mood disorder ([facility]) Unspecified episodic mood disorder Mixed hyperlipidemia Other secondary hypertension Other secondary hypertension- Primary Mixed hyperlipidemia Type 2 diabetes mellitus without complication, with long-term current use of insulin (Multi) Type 2 diabetes mellitus without complication, with long-term current use of insulin (Multi)- Primary Other secondary hypertension Secondary hypertension- Primary Other secondary hypertension, unspecified Type 2 diabetes mellitus without complication, with long-term current use of insulin (Multi) Secondary hypertension- Primary Other secondary hypertension, unspecified Type 2 diabetes mellitus without complication, with long-term current use of insulin (Multi) Mixed hyperlipidemia Secondary hypertension- Primary Other secondary hypertension, unspecified Type 2 diabetes mellitus without complication, with long-term current use of insulin (Multi) Weakness Other malaise and fatigue Secondary hypertension- Primary Other secondary hypertension, unspecified Mixed hyperlipidemia Type 2 diabetes mellitus without complication, with long-term current use of insulin (Multi) Type 2 diabetes mellitus without complication, with long-term current use of insulin (Multi)- Primary Secondary hypertension Other secondary hypertension, unspecified Mixed hyperlipidemia Weakness Other malaise and fatigue 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 Type 2 diabetes mellitus without complication, with long-term current use of insulin (Multi)- Primary Vitamin D deficiency Weakness Other malaise and fatigue Secondary hypertension Other secondary hypertension, unspecified Mixed hyperlipidemia Skin cancer of arm, unspecified laterality Stage 3b chronic kidney disease (Multi) Abscess- Primary Cellulitis and abscess of unspecified site Secondary hypertension Other secondary hypertension, unspecified Type 2 diabetes mellitus without complication, with long-term current use of insulin (Multi) documented in this encounter [facility] Work Phone: Evaluation note* Diagnosis Weakness- Primary Other malaise and fatigue Type 2 diabetes mellitus without complication, with long-term current use of insulin (Multi) [place] disorder [place] Unspecified episodic mood disorder Other secondary hypertension Mixed hyperlipidemia Vitamin D deficiency- Primary Mood disorder ([facility]) Unspecified episodic mood disorder Skin cancer of arm, unspecified laterality Type 2 diabetes mellitus with hyperosmolarity without coma, with long-term current use of insulin (Multi)- Primary Weakness Other malaise and fatigue Vitamin D deficiency Secondary hypertension Other secondary hypertension, unspecified Other hyperlipidemia Mood disorder ([facility]) Unspecified episodic mood disorder Skin lesions Weakness- Primary Other malaise and fatigue Vitamin D deficiency Type 2 diabetes mellitus with ketoacidosis without coma, 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 Skin lesions Mood disorder [place] Unspecified episodic mood disorder Secondary hypertension Other secondary hypertension, unspecified Other hyperlipidemia Vitamin D deficiency- Primary Type 2 diabetes mellitus without complication, with long-term current use of insulin (Multi) Skin lesions Other secondary hypertension Mood disorder [place] Unspecified episodic mood disorder Mixed hyperlipidemia Skin lesions- Primary Type 2 diabetes mellitus without complication, with long-term current use of insulin (Multi) Other secondary hypertension Mood disorder [place] Unspecified episodic mood disorder Type 2 diabetes mellitus without complication, with long-term current use of insulin (Multi)- Primary Vitamin D deficiency Skin lesions Mood disorder [place] Unspecified episodic mood disorder Other secondary hypertension Mixed hyperlipidemia Other secondary hypertension- Primary Mixed hyperlipidemia Skin cancer of arm, unspecified laterality Type 2 diabetes mellitus without complication, with long-term current use of insulin (Multi) Vitamin D deficiency Weakness Other malaise and fatigue Mood disorder [place] [place] Unspecified episodic mood disorder Weakness- Primary Other malaise and fatigue Vitamin D deficiency Type 2 diabetes mellitus without complication, with long-term current use of insulin (Multi) Skin cancer of arm, unspecified laterality Mood disorder [place] Unspecified episodic mood disorder Mixed hyperlipidemia Other secondary hypertension Other secondary hypertension- Primary Mixed hyperlipidemia Type 2 diabetes mellitus without complication, with long-term current use of insulin (Multi) Type 2 diabetes mellitus without complication, with long-term current use of insulin (Multi)- Primary Other secondary hypertension Secondary hypertension- Primary Other secondary hypertension, unspecified Type 2 diabetes mellitus without complication, with long-term current use of insulin (Multi) Secondary hypertension- Primary Other secondary hypertension, unspecified Type 2 diabetes mellitus without complication, with long-term current use of insulin (Multi) Mixed hyperlipidemia Secondary hypertension- Primary Other secondary hypertension, unspecified Type 2 diabetes mellitus without complication, with long-term current use of insulin (Multi) Weakness Other malaise and fatigue Secondary hypertension- Primary Other secondary hypertension, unspecified Mixed hyperlipidemia Type 2 diabetes mellitus without complication, with long-term current use of insulin (Multi) Type 2 diabetes mellitus without complication, with long-term current use of insulin (Multi)- Primary Secondary hypertension Other secondary hypertension, unspecified Mixed hyperlipidemia Weakness Other malaise and fatigue Type 2 diabetes mellitus without complication, with long-term current use of insulin (Multi)- Primary Vitamin D deficiency Weakness Other malaise and fatigue Secondary hypertension Other secondary hypertension, unspecified Mixed hyperlipidemia Skin cancer of arm, unspecified laterality Stage 3b chronic kidney disease (Multi) Abscess- Primary Cellulitis and abscess of unspecified site Secondary hypertension Other secondary hypertension, unspecified Type 2 diabetes mellitus without complication, with long-term current use of insulin (Multi) Abscess- Primary Cellulitis and abscess of unspecified site Secondary hypertension Other secondary hypertension, unspecified Type 2 diabetes mellitus without complication, with long-term current use of insulin (Multi) Weakness- Primary Other malaise and fatigue Vitamin D deficiency Type 2 diabetes mellitus without complication, with long-term current use of insulin (Multi) Stage 3b chronic kidney disease (Multi) Hyperkalemia Hyperpotassemia Secondary hypertension Other secondary hypertension, unspecified Mood disorder (CMS-HCC) Unspecified episodic mood disorder Skin cancer of arm, unspecified laterality Abscess Cellulitis and abscess of unspecified site Weakness- Primary Other malaise and fatigue Type 2 diabetes mellitus without complication, with long-term current use of insulin (Multi) Stage 3b chronic kidney disease (Multi) Hyperkalemia Hyperpotassemia Secondary hypertension Other secondary hypertension, unspecified Mood disorder (CMS-HCC) Unspecified episodic mood disorder Skin cancer of arm, unspecified laterality Mixed hyperlipidemia Stage 3b chronic kidney disease (Multi) documented in this encounter [facility] Work Phone: Evaluation note* Diagnosis Weakness- Primary Other malaise and fatigue Type 2 diabetes mellitus without complication, with long-term current use of insulin (Multi) Mood disorder (CMS-HCC) Unspecified episodic mood disorder Other secondary hypertension Mixed hyperlipidemia Vitamin D deficiency- Primary Mood disorder (CMS-HCC) Unspecified episodic mood disorder Skin cancer of arm, unspecified laterality Type 2 diabetes mellitus with hyperosmolarity without coma, with long-term current use of insulin (Multi)- Primary Weakness Other malaise and fatigue Vitamin D deficiency Secondary hypertension Other secondary hypertension, unspecified Other hyperlipidemia Mood disorder [place] Unspecified episodic mood disorder Skin lesions Weakness- Primary Other malaise and fatigue Vitamin D deficiency Type 2 diabetes mellitus with ketoacidosis without coma, 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 Skin lesions Mood disorder [place] Unspecified episodic mood disorder Secondary hypertension Other secondary hypertension, unspecified Other hyperlipidemia Vitamin D deficiency- Primary Type 2 diabetes mellitus without complication, with long-term current use of insulin (Multi) Skin lesions Other secondary hypertension Mood disorder ([facility] [place] Unspecified episodic mood disorder Mixed hyperlipidemia Skin lesions- Primary Type 2 diabetes mellitus without complication, with long-term current use of insulin (Multi) Other secondary hypertension Mood disorder ([facility] Unspecified episodic mood disorder Type 2 diabetes mellitus without complication, with long-term current use of insulin (Multi)- Primary Vitamin D deficiency Skin lesions Mood disorder ([facility] Unspecified episodic mood disorder Other secondary hypertension Mixed hyperlipidemia Other secondary hypertension- Primary Mixed hyperlipidemia Skin cancer of arm, unspecified laterality Type 2 diabetes mellitus without complication, with long-term current use of insulin (Multi) Vitamin D deficiency Weakness Other malaise and fatigue Mood disorder ([facility] Unspecified episodic mood disorder Weakness- Primary Other malaise and fatigue Vitamin D deficiency Type 2 diabetes mellitus without complication, with long-term current use of insulin (Multi) Skin cancer of arm, unspecified laterality Mood disorder ([facility] [place] Unspecified episodic mood disorder Mixed hyperlipidemia Other secondary hypertension Other secondary hypertension- Primary Mixed hyperlipidemia Type 2 diabetes mellitus without complication, with long-term current use of insulin (Multi) Type 2 diabetes mellitus without complication, with long-term current use of insulin (Multi)- Primary Other secondary hypertension Secondary hypertension- Primary Other secondary hypertension, unspecified Type 2 diabetes mellitus without complication, with long-term current use of insulin (Multi) Secondary hypertension- Primary Other secondary hypertension, unspecified Type 2 diabetes mellitus without complication, with long-term current use of insulin (Multi) Mixed hyperlipidemia Secondary hypertension- Primary Other secondary hypertension, unspecified Type 2 diabetes mellitus without complication, with long-term current use of insulin (Multi) Weakness Other malaise and fatigue Secondary hypertension- Primary Other secondary hypertension, unspecified Mixed hyperlipidemia Type 2 diabetes mellitus without complication, with long-term current use of insulin (Multi) Type 2 diabetes mellitus without complication, with long-term current use of insulin (Multi)- Primary Secondary hypertension Other secondary hypertension, unspecified Mixed hyperlipidemia Weakness Other malaise and fatigue Type 2 diabetes mellitus without complication, with long-term current use of insulin (Multi)- Primary Vitamin D deficiency Weakness Other malaise and fatigue Secondary hypertension Other secondary hypertension, unspecified Mixed hyperlipidemia Skin cancer of arm, unspecified laterality Stage 3b chronic kidney disease (Multi) Abscess- Primary Cellulitis and abscess of unspecified site Secondary hypertension Other secondary hypertension, unspecified Type 2 diabetes mellitus without complication, with long-term current use of insulin (Multi) Abscess- Primary Cellulitis and abscess of unspecified site Secondary hypertension Other secondary hypertension, unspecified Type 2 diabetes mellitus without complication, with long-term current use of insulin (Multi) Weakness- Primary Other malaise and fatigue Vitamin D deficiency Type 2 diabetes mellitus without complication, with long-term current use of insulin (Multi) Stage 3b chronic kidney disease (Multi) Hyperkalemia Hyperpotassemia Secondary hypertension Other secondary hypertension, unspecified Mood disorder (CMS-HCC) Unspecified episodic mood disorder Skin cancer of arm, unspecified laterality Abscess Cellulitis and abscess of unspecified site Weakness- Primary Other malaise and fatigue Type 2 diabetes mellitus without complication, with long-term current use of insulin (Multi) Stage 3b chronic kidney disease (Multi) Hyperkalemia Hyperpotassemia Secondary hypertension Other secondary hypertension, unspecified Mood disorder (CMS-HCC) Unspecified episodic mood disorder Skin cancer of arm, unspecified laterality Mixed hyperlipidemia Stage 3b chronic kidney disease (Multi)- Primary Mixed hyperlipidemia Primary hypertension Unspecified essential hypertension documented in this encounter [facility] Work Phone: Evaluation note* Diagnosis Weakness- Primary Other malaise and fatigue Type 2 diabetes mellitus without complication, with long-term current use of insulin (Multi) Mood disorder (CMS-HCC) Unspecified episodic mood disorder Other secondary hypertension Mixed hyperlipidemia Vitamin D deficiency- Primary Mood disorder (CMS-HCC) Unspecified episodic mood disorder Skin cancer of arm, unspecified laterality Type 2 diabetes mellitus with hyperosmolarity without coma, with long-term current use of insulin (Multi)- Primary Weakness Other malaise and fatigue Vitamin D deficiency Secondary hypertension Other secondary hypertension, unspecified Other hyperlipidemia Mood disorder [place] Unspecified episodic mood disorder Skin lesions Weakness- Primary Other malaise and fatigue Vitamin D deficiency Type 2 diabetes mellitus with ketoacidosis without coma, 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 retirement insulin use Skin lesions Mood disorder ([facility] Unspecified episodic mood disorder Secondary hypertension Other secondary hypertension, unspecified Other hyperlipidemia Vitamin D deficiency- Primary Type 2 diabetes mellitus without complication, with long-term current use of insulin (Multi) Skin lesions Other secondary hypertension Mood disorder ([facility] Unspecified episodic mood disorder Mixed hyperlipidemia Skin lesions- Primary Type 2 diabetes mellitus without complication, with long-term current use of insulin (Multi) Other secondary hypertension Mood disorder ([facility] Unspecified episodic mood disorder Type 2 diabetes mellitus without complication, with long-term current use of insulin (Multi)- Primary Vitamin D deficiency Skin lesions Mood disorder ([facility] Unspecified episodic mood disorder Other secondary hypertension Mixed hyperlipidemia Other secondary hypertension- Primary Mixed hyperlipidemia Skin cancer of arm, unspecified laterality Type 2 diabetes mellitus without complication, with long-term current use of insulin (Multi) Vitamin D deficiency Weakness Other malaise and fatigue Mood disorder ([facility] Unspecified episodic mood disorder Weakness- Primary Other malaise and fatigue Vitamin D deficiency Type 2 diabetes mellitus without complication, with long-term current use of insulin (Multi) Skin cancer of arm, unspecified laterality Mood disorder ([facility] Unspecified episodic mood disorder Mixed hyperlipidemia Other secondary hypertension Other secondary hypertension- Primary Mixed hyperlipidemia Type 2 diabetes mellitus without complication, with long-term current use of insulin (Multi) Type 2 diabetes mellitus without complication, with long-term current use of insulin (Multi)- Primary Other secondary hypertension Secondary hypertension- Primary Other secondary hypertension, unspecified Type 2 diabetes mellitus without complication, with long-term current use of insulin (Multi) Secondary hypertension- Primary Other secondary hypertension, unspecified Type 2 diabetes mellitus without complication, with long-term current use of insulin (Multi) Mixed hyperlipidemia Secondary hypertension- Primary Other secondary hypertension, unspecified Type 2 diabetes mellitus without complication, with long-term current use of insulin (Multi) Weakness Other malaise and fatigue Secondary hypertension- Primary Other secondary hypertension, unspecified Mixed hyperlipidemia Type 2 diabetes mellitus without complication, with long-term current use of insulin (Multi) Type 2 diabetes mellitus without complication, with long-term current use of insulin (Multi)- Primary Secondary hypertension Other secondary hypertension, unspecified Mixed hyperlipidemia Weakness Other malaise and fatigue Type 2 diabetes mellitus without complication, with long-term current use of insulin (Multi)- Primary Vitamin D deficiency Weakness Other malaise and fatigue Secondary hypertension Other secondary hypertension, unspecified Mixed hyperlipidemia Skin cancer of arm, unspecified laterality Stage 3b chronic kidney disease (Multi) Abscess- Primary Cellulitis and abscess of unspecified site Secondary hypertension Other secondary hypertension, unspecified Type 2 diabetes mellitus without complication, with long-term current use of insulin (Multi) Abscess- Primary Cellulitis and abscess of unspecified site Secondary hypertension Other secondary hypertension, unspecified Type 2 diabetes mellitus without complication, with long-term current use of insulin (Multi) Weakness- Primary Other malaise and fatigue Vitamin D deficiency Type 2 diabetes mellitus without complication, with long-term current use of insulin (Multi) Stage 3b chronic kidney disease (Multi) Hyperkalemia Hyperpotassemia Secondary hypertension Other secondary hypertension, unspecified Mood disorder (CMS-HCC) Unspecified episodic mood disorder Skin cancer of arm, unspecified laterality Abscess Cellulitis and abscess of unspecified site Weakness- Primary Other malaise and fatigue Type 2 diabetes mellitus without complication, with long-term current use of insulin (Multi) Stage 3b chronic kidney disease (Multi) Hyperkalemia Hyperpotassemia Secondary hypertension Other secondary hypertension, unspecified Mood disorder (CMS-HCC) Unspecified episodic mood disorder Skin cancer of arm, unspecified laterality Mixed hyperlipidemia Neoplasm of uncertain behavior of skin- Primary Actinic keratosis Squamous cell carcinoma of skin Other malignant neoplasm of skin, site unspecified Seborrheic dermatitis Unspecified seborrheic dermatitis Melanocytic nevus, unspecified location Hemangioma of skin Hemangioma of skin and subcutaneous tissue Seborrheic keratosis History of nonmelanoma skin cancer Diffuse photodamage of skin Other chronic dermatitis due to solar radiation documented in this encounter [facility] Work Phone: Evaluation note* Diagnosis Weakness- Primary Other malaise and fatigue Type 2 diabetes mellitus without complication, with long-term current use of insulin (Multi) Mood disorder (CMS-HCC) Unspecified episodic mood disorder Other secondary hypertension Mixed hyperlipidemia Vitamin D deficiency- Primary Mood disorder (CMS-HCC) Unspecified episodic mood disorder Skin cancer of arm, unspecified laterality Type 2 diabetes mellitus with hyperosmolarity without coma, with long-term current use of insulin (Multi)- Primary Weakness Other malaise and fatigue Vitamin D deficiency Secondary hypertension Other secondary hypertension, unspecified Other hyperlipidemia Mood disorder [place] Unspecified episodic mood disorder Skin lesions Weakness- Primary Other malaise and fatigue Vitamin D deficiency Type 2 diabetes mellitus with ketoacidosis without coma, 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 Skin lesions Mood disorder ([facility] Unspecified episodic mood disorder Secondary hypertension Other secondary hypertension, unspecified Other hyperlipidemia Vitamin D deficiency- Primary Type 2 diabetes mellitus without complication, with long-term current use of insulin (Multi) Skin lesions Other secondary hypertension Mood disorder ([facility] Unspecified episodic mood disorder Mixed hyperlipidemia Skin lesions- Primary Type 2 diabetes mellitus without complication, with long-term current use of insulin (Multi) Other secondary hypertension Mood disorder ([facility] Unspecified episodic mood disorder Type 2 diabetes mellitus without complication, with long-term current use of insulin (Multi)- Primary Vitamin D deficiency Skin lesions Mood disorder ([facility] Unspecified episodic mood disorder Other secondary hypertension Mixed hyperlipidemia Other secondary hypertension- Primary Mixed hyperlipidemia Skin cancer of arm, unspecified laterality Type 2 diabetes mellitus without complication, with long-term current use of insulin (Multi) Vitamin D deficiency Weakness Other malaise and fatigue Mood disorder ([facility] Unspecified episodic mood disorder Weakness- Primary Other malaise and fatigue Vitamin D deficiency Type 2 diabetes mellitus without complication, with long-term current use of insulin (Multi) Skin cancer of arm, unspecified laterality Mood disorder ([facility] Unspecified episodic mood disorder Mixed hyperlipidemia Other secondary hypertension Other secondary hypertension- Primary Mixed hyperlipidemia Type 2 diabetes mellitus without complication, with long-term current use of insulin (Multi) Type 2 diabetes mellitus without complication, with long-term current use of insulin (Multi)- Primary Other secondary hypertension Secondary hypertension- Primary Other secondary hypertension, unspecified Type 2 diabetes mellitus without complication, with long-term current use of insulin (Multi) Secondary hypertension- Primary Other secondary hypertension, unspecified Type 2 diabetes mellitus without complication, with long-term current use of insulin (Multi) Mixed hyperlipidemia Secondary hypertension- Primary Other secondary hypertension, unspecified Type 2 diabetes mellitus without complication, with long-term current use of insulin (Multi) Weakness Other malaise and fatigue Secondary hypertension- Primary Other secondary hypertension, unspecified Mixed hyperlipidemia Type 2 diabetes mellitus without complication, with long-term current use of insulin (Multi) Type 2 diabetes mellitus without complication, with long-term current use of insulin (Multi)- Primary Secondary hypertension Other secondary hypertension, unspecified Mixed hyperlipidemia Weakness Other malaise and fatigue Type 2 diabetes mellitus without complication, with long-term current use of insulin (Multi)- Primary Vitamin D deficiency Weakness Other malaise and fatigue Secondary hypertension Other secondary hypertension, unspecified Mixed hyperlipidemia Skin cancer of arm, unspecified laterality Stage 3b chronic kidney disease (Multi) Abscess- Primary Cellulitis and abscess of unspecified site Secondary hypertension Other secondary hypertension, unspecified Type 2 diabetes mellitus without complication, with long-term current use of insulin (Multi) Abscess- Primary Cellulitis and abscess of unspecified site Secondary hypertension Other secondary hypertension, unspecified Type 2 diabetes mellitus without complication, with long-term current use of insulin (Multi) Weakness- Primary Other malaise and fatigue Vitamin D deficiency Type 2 diabetes mellitus without complication, with long-term current use of insulin (Multi) Stage 3b chronic kidney disease (Multi) Hyperkalemia Hyperpotassemia Secondary hypertension Other secondary hypertension, unspecified Mood disorder (CMS-HCC) Unspecified episodic mood disorder Skin cancer of arm, unspecified laterality Abscess Cellulitis and abscess of unspecified site Weakness- Primary Other malaise and fatigue Type 2 diabetes mellitus without complication, with long-term current use of insulin (Multi) Stage 3b chronic kidney disease (Multi) Hyperkalemia Hyperpotassemia Secondary hypertension Other secondary hypertension, unspecified Mood disorder (CMS-HCC) Unspecified episodic mood disorder Skin cancer of arm, unspecified laterality Mixed hyperlipidemia 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 documented in this encounter [facility] Work Phone: Evaluation note* Diagnosis Weakness- Primary Other malaise and fatigue Type 2 diabetes mellitus without complication, with long-term current use of insulin Mood disorder (CMS-HCC) Unspecified episodic mood disorder Other secondary hypertension Mixed hyperlipidemia Vitamin D deficiency- Primary Mood disorder (CMS-HCC) Unspecified episodic mood disorder Skin cancer of arm, unspecified laterality Type 2 diabetes mellitus with hyperosmolarity without coma, with long-term current use of insulin (Multi)- Primary Weakness Other malaise and fatigue Vitamin D deficiency Secondary hypertension Other secondary hypertension, unspecified Other hyperlipidemia Mood disorder (CMS-HCC) Unspecified episodic mood disorder Skin lesions Weakness- Primary Other malaise and fatigue Vitamin D deficiency Type 2 diabetes mellitus with ketoacidosis without coma, 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 retirement insulin use Skin lesions Mood disorder ([facility]) Unspecified episodic mood disorder Secondary hypertension Other secondary hypertension, unspecified Other hyperlipidemia Vitamin D deficiency- Primary Type 2 diabetes mellitus without complication, with long-term current use of insulin Skin lesions Other secondary hypertension Mood disorder ([facility]) Unspecified episodic mood disorder Mixed hyperlipidemia Skin lesions- Primary Type 2 diabetes mellitus without complication, with long-term current use of insulin Other secondary hypertension Mood disorder ([facility]) Unspecified episodic mood disorder Type 2 diabetes mellitus without complication, with long-term current use of insulin- Primary Vitamin D deficiency Skin lesions Mood disorder ([facility]) Unspecified episodic mood disorder Other secondary hypertension Mixed hyperlipidemia Other secondary hypertension- Primary Mixed hyperlipidemia Skin cancer of arm, unspecified laterality Type 2 diabetes mellitus without complication, with long-term current use of insulin Vitamin D deficiency Weakness Other malaise and fatigue Mood disorder ([facility]) Unspecified episodic mood disorder Weakness- Primary Other malaise and fatigue Vitamin D deficiency Type 2 diabetes mellitus without complication, with long-term current use of insulin Skin cancer of arm, unspecified laterality Mood disorder ([facility]) Unspecified episodic mood disorder Mixed hyperlipidemia Other secondary hypertension Other secondary hypertension- Primary Mixed hyperlipidemia Type 2 diabetes mellitus without complication, with long-term current use of insulin Type 2 diabetes mellitus without complication, with long-term current use of insulin- Primary Other secondary hypertension Secondary hypertension- Primary Other secondary hypertension, unspecified Type 2 diabetes mellitus without complication, with long-term current use of insulin Secondary hypertension- Primary Other secondary hypertension, unspecified Type 2 diabetes mellitus without complication, with long-term current use of insulin Mixed hyperlipidemia Secondary hypertension- Primary Other secondary hypertension, unspecified Type 2 diabetes mellitus without complication, with long-term current use of insulin Weakness Other malaise and fatigue Secondary hypertension- Primary Other secondary hypertension, unspecified Mixed hyperlipidemia Type 2 diabetes mellitus without complication, with long-term current use of insulin Type 2 diabetes mellitus without complication, with long-term current use of insulin- Primary Secondary hypertension Other secondary hypertension, unspecified Mixed hyperlipidemia Weakness Other malaise and fatigue Type 2 diabetes mellitus without complication, with long-term current use of insulin- Primary Vitamin D deficiency Weakness Other malaise and fatigue Secondary hypertension Other secondary hypertension, unspecified Mixed hyperlipidemia Skin cancer of arm, unspecified laterality Stage 3b chronic kidney disease (Multi) Abscess- Primary Cellulitis and abscess of unspecified site Secondary hypertension Other secondary hypertension, unspecified Type 2 diabetes mellitus without complication, with long-term current use of insulin Abscess- Primary Cellulitis and abscess of unspecified site Secondary hypertension Other secondary hypertension, unspecified Type 2 diabetes mellitus without complication, with long-term current use of insulin Weakness- Primary Other malaise and fatigue Vitamin D deficiency Type 2 diabetes mellitus without complication, with long-term current use of insulin Stage 3b chronic kidney disease (Multi) Hyperkalemia Hyperpotassemia Secondary hypertension Other secondary hypertension, unspecified Mood disorder (CMS-HCC) Unspecified episodic mood disorder Skin cancer of arm, unspecified laterality Abscess Cellulitis and abscess of unspecified site Weakness- Primary Other malaise and fatigue Type 2 diabetes mellitus without complication, with long-term current use of insulin Stage 3b chronic kidney disease (Multi) Hyperkalemia Hyperpotassemia Secondary hypertension Other secondary hypertension, unspecified Mood disorder (CMS-HCC) Unspecified episodic mood disorder Skin cancer of arm, unspecified laterality Mixed hyperlipidemia Stage 3b chronic kidney disease (Multi)- Primary Mixed hyperlipidemia Primary hypertension Unspecified essential hypertension Type 2 diabetes mellitus with stage 3 chronic kidney disease, with long-term current use of insulin, 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 stage 3a or 3b CKD (Multi) documented in this encounter [facility] Work Phone: Evaluation note* Diagnosis Weakness- Primary Other malaise and fatigue Type 2 diabetes mellitus without complication, with long-term current use of insulin Mood disorder (CMS-HCC) Unspecified episodic mood disorder Other secondary hypertension Mixed hyperlipidemia Vitamin D deficiency- Primary Mood disorder (CMS-HCC) Unspecified episodic mood disorder Skin cancer of arm, unspecified laterality Type 2 diabetes mellitus with hyperosmolarity without coma, with long-term current use of insulin (Multi)- Primary Weakness Other malaise and fatigue Vitamin D deficiency Secondary hypertension Other secondary hypertension, unspecified Other hyperlipidemia Mood disorder (CMS-HCC) Unspecified episodic mood disorder Skin lesions Weakness- Primary Other malaise and fatigue Vitamin D deficiency Type 2 diabetes mellitus with ketoacidosis without coma, 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 retirement insulin use Skin lesions Mood disorder (CMS-HCC) Unspecified episodic mood disorder Secondary hypertension Other secondary hypertension, unspecified Other hyperlipidemia Vitamin D deficiency- Primary Type 2 diabetes mellitus without complication, with long-term current use of insulin Skin lesions Other secondary hypertension Mood disorder (CMS-HCC) Unspecified episodic mood disorder Mixed hyperlipidemia Skin lesions- Primary Type 2 diabetes mellitus without complication, with long-term current use of insulin Other secondary hypertension [place] Unspecified episodic mood disorder Type 2 diabetes mellitus without complication, with long-term current use of insulin- Primary Vitamin D deficiency Skin lesions Mood disorder [place] Unspecified episodic mood disorder Other secondary hypertension Mixed hyperlipidemia Other secondary hypertension- Primary Mixed hyperlipidemia Skin cancer of arm, unspecified laterality Type 2 diabetes mellitus without complication, with long-term current use of insulin Vitamin D deficiency Weakness Other malaise and fatigue Mood disorder [place] [place] Unspecified episodic mood disorder Weakness- Primary Other malaise and fatigue Vitamin D deficiency Type 2 diabetes mellitus without complication, with long-term current use of insulin Skin cancer of arm, unspecified laterality Mood disorder [place] [place] Unspecified episodic mood disorder Mixed hyperlipidemia Other secondary hypertension Other secondary hypertension- Primary Mixed hyperlipidemia Type 2 diabetes mellitus without complication, with long-term current use of insulin Type 2 diabetes mellitus without complication, with long-term current use of insulin- Primary Other secondary hypertension Secondary hypertension- Primary Other secondary hypertension, unspecified Type 2 diabetes mellitus without complication, with long-term current use of insulin Secondary hypertension- Primary Other secondary hypertension, unspecified Type 2 diabetes mellitus without complication, with long-term current use of insulin Mixed hyperlipidemia Secondary hypertension- Primary Other secondary hypertension, unspecified Type 2 diabetes mellitus without complication, with long-term current use of insulin Weakness Other malaise and fatigue Secondary hypertension- Primary Other secondary hypertension, unspecified Mixed hyperlipidemia Type 2 diabetes mellitus without complication, with long-term current use of insulin Type 2 diabetes mellitus without complication, with long-term current use of insulin- Primary Secondary hypertension Other secondary hypertension, unspecified Mixed hyperlipidemia Weakness Other malaise and fatigue Type 2 diabetes mellitus without complication, with long-term current use of insulin- Primary Vitamin D deficiency Weakness Other malaise and fatigue Secondary hypertension Other secondary hypertension, unspecified Mixed hyperlipidemia Skin cancer of arm, unspecified laterality Stage 3b chronic kidney disease (Multi) Abscess- Primary Cellulitis and abscess of unspecified site Secondary hypertension Other secondary hypertension, unspecified Type 2 diabetes mellitus without complication, with long-term current use of insulin Abscess- Primary Cellulitis and abscess of unspecified site Secondary hypertension Other secondary hypertension, unspecified Type 2 diabetes mellitus without complication, with long-term current use of insulin Weakness- Primary Other malaise and fatigue Vitamin D deficiency Type 2 diabetes mellitus without complication, with long-term current use of insulin Stage 3b chronic kidney disease (Multi) Hyperkalemia Hyperpotassemia Secondary hypertension Other secondary hypertension, unspecified Mood disorder (CMS-HCC) Unspecified episodic mood disorder Skin cancer of arm, unspecified laterality Abscess Cellulitis and abscess of unspecified site Weakness- Primary Other malaise and fatigue Type 2 diabetes mellitus without complication, with long-term current use of insulin Stage 3b chronic kidney disease (Multi) Hyperkalemia Hyperpotassemia Secondary hypertension Other secondary hypertension, unspecified Mood disorder (CMS-HCC) Unspecified episodic mood disorder Skin cancer of arm, unspecified laterality Mixed hyperlipidemia 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 documented in this encounter [facility] Work Phone: Evaluation note* Diagnosis Weakness- Primary Other malaise and fatigue Type 2 diabetes mellitus without complication, with long-term current use of insulin Mood disorder (CMS-HCC) Unspecified episodic mood disorder Other secondary hypertension Mixed hyperlipidemia Vitamin D deficiency- Primary Mood disorder (CMS-HCC) Unspecified episodic mood disorder Skin cancer of arm, unspecified laterality Type 2 diabetes mellitus with hyperosmolarity without coma, with long-term current use of insulin (Multi)- Primary Weakness Other malaise and fatigue Vitamin D deficiency Secondary hypertension Other secondary hypertension, unspecified Other hyperlipidemia Mood disorder (CMS-HCC) Unspecified episodic mood disorder Skin lesions Weakness- Primary Other malaise and fatigue Vitamin D deficiency Type 2 diabetes mellitus with ketoacidosis without coma, 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 retirement insulin use Skin lesions Mood disorder (CMS-HCC) Unspecified episodic mood disorder Secondary hypertension Other secondary hypertension, unspecified Other hyperlipidemia Vitamin D deficiency- Primary Type 2 diabetes mellitus without complication, with long-term current use of insulin Skin lesions Other secondary hypertension Mood disorder (CMS-HCC) Unspecified episodic mood disorder Mixed hyperlipidemia Skin lesions- Primary Type 2 diabetes mellitus without complication, with long-term current use of insulin Other secondary hypertension Mood disorder (CMS-HCC) Unspecified episodic mood disorder Type 2 diabetes mellitus without complication, with long-term current use of insulin- Primary Vitamin D deficiency Skin lesions Mood disorder (CMS-HCC) Unspecified episodic mood disorder Other secondary hypertension Mixed hyperlipidemia Other secondary hypertension- Primary Mixed hyperlipidemia Skin cancer of arm, unspecified laterality Type 2 diabetes mellitus without complication, with long-term current use of insulin Vitamin D deficiency Weakness Other malaise and fatigue Mood disorder ([facility]-HCC) Unspecified episodic mood disorder Weakness- Primary Other malaise and fatigue Vitamin D deficiency Type 2 diabetes mellitus without complication, with long-term current use of insulin Skin cancer of arm, unspecified laterality Mood disorder ([facility]-HCC) Unspecified episodic mood disorder Mixed hyperlipidemia Other secondary hypertension Other secondary hypertension- Primary Mixed hyperlipidemia Type 2 diabetes mellitus without complication, with long-term current use of insulin Type 2 diabetes mellitus without complication, with long-term current use of insulin- Primary Other secondary hypertension Secondary hypertension- Primary Other secondary hypertension, unspecified Type 2 diabetes mellitus without complication, with long-term current use of insulin Secondary hypertension- Primary Other secondary hypertension, unspecified Type 2 diabetes mellitus without complication, with long-term current use of insulin Mixed hyperlipidemia Secondary hypertension- Primary Other secondary hypertension, unspecified Type 2 diabetes mellitus without complication, with long-term current use of insulin Weakness Other malaise and fatigue Secondary hypertension- Primary Other secondary hypertension, unspecified Mixed hyperlipidemia Type 2 diabetes mellitus without complication, with long-term current use of insulin Type 2 diabetes mellitus without complication, with long-term current use of insulin- Primary Secondary hypertension Other secondary hypertension, unspecified Mixed hyperlipidemia Weakness Other malaise and fatigue Type 2 diabetes mellitus without complication, with long-term current use of insulin- Primary Vitamin D deficiency Weakness Other malaise and fatigue Secondary hypertension Other secondary hypertension, unspecified Mixed hyperlipidemia Skin cancer of arm, unspecified laterality Stage 3b chronic kidney disease (Multi) Abscess- Primary Cellulitis and abscess of unspecified site Secondary hypertension Other secondary hypertension, unspecified Type 2 diabetes mellitus without complication, with long-term current use of insulin Abscess- Primary Cellulitis and abscess of unspecified site Secondary hypertension Other secondary hypertension, unspecified Type 2 diabetes mellitus without complication, with long-term current use of insulin Weakness- Primary Other malaise and fatigue Vitamin D deficiency Type 2 diabetes mellitus without complication, with long-term current use of insulin Stage 3b chronic kidney disease (Multi) Hyperkalemia Hyperpotassemia Secondary hypertension Other secondary hypertension, unspecified Mood disorder ([facility]-HCC) Unspecified episodic mood disorder Skin cancer of arm, unspecified laterality Abscess Cellulitis and abscess of unspecified site Weakness- Primary Other malaise and fatigue Type 2 diabetes mellitus without complication, with long-term current use of insulin Stage 3b chronic kidney disease (Multi) Hyperkalemia Hyperpotassemia Secondary hypertension Other secondary hypertension, unspecified Mood disorder ([facility]-HCC) Unspecified episodic mood disorder Skin cancer of arm, unspecified laterality Mixed hyperlipidemia Basal cell carcinoma (BCC) of skin of right upper extremity including shoulder documented in this encounter [facility] Work Phone: Evaluation note* Diagnosis Weakness- Primary Other malaise and fatigue Type 2 diabetes mellitus without complication, with long-term current use of insulin Mood disorder Unspecified episodic mood disorder Other secondary hypertension Mixed hyperlipidemia Vitamin D deficiency- Primary Mood disorder Unspecified episodic mood disorder Skin cancer of arm, unspecified laterality Type 2 diabetes mellitus with hyperosmolarity without coma, with long-term current use of insulin (Multi)- Primary Weakness Other malaise and fatigue Vitamin D deficiency Secondary hypertension Other secondary hypertension, unspecified Other hyperlipidemia Mood disorder Unspecified episodic mood disorder Skin lesions Weakness- Primary Other malaise and fatigue Vitamin D deficiency Type 2 diabetes mellitus with ketoacidosis without coma, 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 retirement insulin use Skin lesions Mood disorder Unspecified episodic mood disorder Secondary hypertension Other secondary hypertension, unspecified Other hyperlipidemia Vitamin D deficiency- Primary Type 2 diabetes mellitus without complication, with long-term current use of insulin Skin lesions Other secondary hypertension Mood disorder Unspecified episodic mood disorder Mixed hyperlipidemia Skin lesions- Primary Type 2 diabetes mellitus without complication, with long-term current use of insulin Other secondary hypertension Mood disorder Unspecified episodic mood disorder Type 2 diabetes mellitus without complication, with long-term current use of insulin- Primary Vitamin D deficiency Skin lesions Mood disorder Unspecified episodic mood disorder Other secondary hypertension Mixed hyperlipidemia Other secondary hypertension- Primary Mixed hyperlipidemia Skin cancer of arm, unspecified laterality Type 2 diabetes mellitus without complication, with long-term current use of insulin Vitamin D deficiency Weakness Other malaise and fatigue Mood disorder Unspecified episodic mood disorder Weakness- Primary Other malaise and fatigue Vitamin D deficiency Type 2 diabetes mellitus without complication, with long-term current use of insulin Skin cancer of arm, unspecified laterality Mood disorder Unspecified episodic mood disorder Mixed hyperlipidemia Other secondary hypertension Other secondary hypertension- Primary Mixed hyperlipidemia Type 2 diabetes mellitus without complication, with long-term current use of insulin Type 2 diabetes mellitus without complication, with long-term current use of insulin- Primary Other secondary hypertension Secondary hypertension- Primary Other secondary hypertension, unspecified Type 2 diabetes mellitus without complication, with long-term current use of insulin Secondary hypertension- Primary Other secondary hypertension, unspecified Type 2 diabetes mellitus without complication, with long-term current use of insulin Mixed hyperlipidemia Secondary hypertension- Primary Other secondary hypertension, unspecified Type 2 diabetes mellitus without complication, with long-term current use of insulin Weakness Other malaise and fatigue Secondary hypertension- Primary Other secondary hypertension, unspecified Mixed hyperlipidemia Type 2 diabetes mellitus without complication, with long-term current use of insulin Type 2 diabetes mellitus without complication, with long-term current use of insulin- Primary Secondary hypertension Other secondary hypertension, unspecified Mixed hyperlipidemia Weakness Other malaise and fatigue Type 2 diabetes mellitus without complication, with long-term current use of insulin- Primary Vitamin D deficiency Weakness Other malaise and fatigue Secondary hypertension Other secondary hypertension, unspecified Mixed hyperlipidemia Skin cancer of arm, unspecified laterality Stage 3b chronic kidney disease (Multi) Abscess- Primary Cellulitis and abscess of unspecified site Secondary hypertension Other secondary hypertension, unspecified Type 2 diabetes mellitus without complication, with long-term current use of insulin Abscess- Primary Cellulitis and abscess of unspecified site Secondary hypertension Other secondary hypertension, unspecified Type 2 diabetes mellitus without complication, with long-term current use of insulin Weakness- Primary Other malaise and fatigue Vitamin D deficiency Type 2 diabetes mellitus without complication, with long-term current use of insulin Stage 3b chronic kidney disease (Multi) Hyperkalemia Hyperpotassemia Secondary hypertension Other secondary hypertension, unspecified Mood disorder Unspecified episodic mood disorder Skin cancer of arm, unspecified laterality Abscess Cellulitis and abscess of unspecified site Weakness- Primary Other malaise and fatigue Type 2 diabetes mellitus without complication, with long-term current use of insulin Stage 3b chronic kidney disease (Multi) Hyperkalemia Hyperpotassemia Secondary hypertension Other secondary hypertension, unspecified Mood disorder Unspecified episodic mood disorder Skin cancer of arm, unspecified laterality Mixed hyperlipidemia Visit for wound check documented in this encounter [facility] Work Phone: Evaluation note* Diagnosis Weakness- Primary Other malaise and fatigue Type 2 diabetes mellitus without complication, with long-term current use of insulin Mood disorder Unspecified episodic mood disorder Other secondary hypertension Mixed hyperlipidemia Vitamin D deficiency- Primary Mood disorder Unspecified episodic mood disorder Skin cancer of arm, unspecified laterality Type 2 diabetes mellitus with hyperosmolarity without coma, with long-term current use of insulin (Multi)- Primary Weakness Other malaise and fatigue Vitamin D deficiency Secondary hypertension Other secondary hypertension, unspecified Other hyperlipidemia Mood disorder Unspecified episodic mood disorder Skin lesions Weakness- Primary Other malaise and fatigue Vitamin D deficiency Type 2 diabetes mellitus with ketoacidosis without coma, 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 retirement insulin use Skin lesions Mood disorder Unspecified episodic mood disorder Secondary hypertension Other secondary hypertension, unspecified Other hyperlipidemia Vitamin D deficiency- Primary Type 2 diabetes mellitus without complication, with long-term current use of insulin Skin lesions Other secondary hypertension Mood disorder Unspecified episodic mood disorder Mixed hyperlipidemia Skin lesions- Primary Type 2 diabetes mellitus without complication, with long-term current use of insulin Other secondary hypertension Mood disorder Unspecified episodic mood disorder Type 2 diabetes mellitus without complication, with long-term current use of insulin- Primary Vitamin D deficiency Skin lesions Mood disorder Unspecified episodic mood disorder Other secondary hypertension Mixed hyperlipidemia Other secondary hypertension- Primary Mixed hyperlipidemia Skin cancer of arm, unspecified laterality Type 2 diabetes mellitus without complication, with long-term current use of insulin Vitamin D deficiency Weakness Other malaise and fatigue Mood disorder Unspecified episodic mood disorder Weakness- Primary Other malaise and fatigue Vitamin D deficiency Type 2 diabetes mellitus without complication, with long-term current use of insulin Skin cancer of arm, unspecified laterality Mood disorder Unspecified episodic mood disorder Mixed hyperlipidemia Other secondary hypertension Other secondary hypertension- Primary Mixed hyperlipidemia Type 2 diabetes mellitus without complication, with long-term current use of insulin Type 2 diabetes mellitus without complication, with long-term current use of insulin- Primary Other secondary hypertension Secondary hypertension- Primary Other secondary hypertension, unspecified Type 2 diabetes mellitus without complication, with long-term current use of insulin Secondary hypertension- Primary Other secondary hypertension, unspecified Type 2 diabetes mellitus without complication, with long-term current use of insulin Mixed hyperlipidemia Secondary hypertension- Primary Other secondary hypertension, unspecified Type 2 diabetes mellitus without complication, with long-term current use of insulin Weakness Other malaise and fatigue Secondary hypertension- Primary Other secondary hypertension, unspecified Mixed hyperlipidemia Type 2 diabetes mellitus without complication, with long-term current use of insulin Type 2 diabetes mellitus without complication, with long-term current use of insulin- Primary Secondary hypertension Other secondary hypertension, unspecified Mixed hyperlipidemia Weakness Other malaise and fatigue Type 2 diabetes mellitus without complication, with long-term current use of insulin- Primary Vitamin D deficiency Weakness Other malaise and fatigue Secondary hypertension Other secondary hypertension, unspecified Mixed hyperlipidemia Skin cancer of arm, unspecified laterality Stage 3b chronic kidney disease (Multi) Abscess- Primary Cellulitis and abscess of unspecified site Secondary hypertension Other secondary hypertension, unspecified Type 2 diabetes mellitus without complication, with long-term current use of insulin Abscess- Primary Cellulitis and abscess of unspecified site Secondary hypertension Other secondary hypertension, unspecified Type 2 diabetes mellitus without complication, with long-term current use of insulin Weakness- Primary Other malaise and fatigue Vitamin D deficiency Type 2 diabetes mellitus without complication, with long-term current use of insulin Stage 3b chronic kidney disease (Multi) Hyperkalemia Hyperpotassemia Secondary hypertension Other secondary hypertension, unspecified Mood disorder Unspecified episodic mood disorder Skin cancer of arm, unspecified laterality Abscess Cellulitis and abscess of unspecified site Weakness- Primary Other malaise and fatigue Type 2 diabetes mellitus without complication, with long-term current use of insulin Stage 3b chronic kidney disease (Multi) Hyperkalemia Hyperpotassemia Secondary hypertension Other secondary hypertension, unspecified Mood disorder Unspecified episodic mood disorder Skin cancer of arm, unspecified laterality Mixed hyperlipidemia 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 Neoplasm of uncertain behavior of skin documented in this encounter [facility] Work Phone: Evaluation note* Diagnosis Weakness- Primary Other malaise and fatigue Type 2 diabetes mellitus without complication, with long-term current use of insulin Mood disorder Unspecified episodic mood disorder Other secondary hypertension Mixed hyperlipidemia Vitamin D deficiency- Primary Mood disorder Unspecified episodic mood disorder Skin cancer of arm, unspecified laterality Type 2 diabetes mellitus with hyperosmolarity without coma, with long-term current use of insulin (Multi)- Primary Weakness Other malaise and fatigue Vitamin D deficiency Secondary hypertension Other secondary hypertension, unspecified Other hyperlipidemia Mood disorder Unspecified episodic mood disorder Skin lesions Weakness- Primary Other malaise and fatigue Vitamin D deficiency Type 2 diabetes mellitus with ketoacidosis without coma, 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 retirement insulin use Skin lesions Mood disorder Unspecified episodic mood disorder Secondary hypertension Other secondary hypertension, unspecified Other hyperlipidemia Vitamin D deficiency- Primary Type 2 diabetes mellitus without complication, with long-term current use of insulin Skin lesions Other secondary hypertension Mood disorder Unspecified episodic mood disorder Mixed hyperlipidemia Skin lesions- Primary Type 2 diabetes mellitus without complication, with long-term current use of insulin Other secondary hypertension Mood disorder Unspecified episodic mood disorder Type 2 diabetes mellitus without complication, with long-term current use of insulin- Primary Vitamin D deficiency Skin lesions Mood disorder Unspecified episodic mood disorder Other secondary hypertension Mixed hyperlipidemia Other secondary hypertension- Primary Mixed hyperlipidemia Skin cancer of arm, unspecified laterality Type 2 diabetes mellitus without complication, with long-term current use of insulin Vitamin D deficiency Weakness Other malaise and fatigue Mood disorder Unspecified episodic mood disorder Weakness- Primary Other malaise and fatigue Vitamin D deficiency Type 2 diabetes mellitus without complication, with long-term current use of insulin Skin cancer of arm, unspecified laterality Mood disorder Unspecified episodic mood disorder Mixed hyperlipidemia Other secondary hypertension Other secondary hypertension- Primary Mixed hyperlipidemia Type 2 diabetes mellitus without complication, with long-term current use of insulin Type 2 diabetes mellitus without complication, with long-term current use of insulin- Primary Other secondary hypertension Secondary hypertension- Primary Other secondary hypertension, unspecified Type 2 diabetes mellitus without complication, with long-term current use of insulin Secondary hypertension- Primary Other secondary hypertension, unspecified Type 2 diabetes mellitus without complication, with long-term current use of insulin Mixed hyperlipidemia Secondary hypertension- Primary Other secondary hypertension, unspecified Type 2 diabetes mellitus without complication, with long-term current use of insulin Weakness Other malaise and fatigue Secondary hypertension- Primary Other secondary hypertension, unspecified Mixed hyperlipidemia Type 2 diabetes mellitus without complication, with long-term current use of insulin Type 2 diabetes mellitus without complication, with long-term current use of insulin- Primary Secondary hypertension Other secondary hypertension, unspecified Mixed hyperlipidemia Weakness Other malaise and fatigue Type 2 diabetes mellitus without complication, with long-term current use of insulin- Primary Vitamin D deficiency Weakness Other malaise and fatigue Secondary hypertension Other secondary hypertension, unspecified Mixed hyperlipidemia Skin cancer of arm, unspecified laterality Stage 3b chronic kidney disease (Multi) Abscess- Primary Cellulitis and abscess of unspecified site Secondary hypertension Other secondary hypertension, unspecified Type 2 diabetes mellitus without complication, with long-term current use of insulin Abscess- Primary Cellulitis and abscess of unspecified site Secondary hypertension Other secondary hypertension, unspecified Type 2 diabetes mellitus without complication, with long-term current use of insulin Weakness- Primary Other malaise and fatigue Vitamin D deficiency Type 2 diabetes mellitus without complication, with long-term current use of insulin Stage 3b chronic kidney disease (Multi) Hyperkalemia Hyperpotassemia Secondary hypertension Other secondary hypertension, unspecified Mood disorder Unspecified episodic mood disorder Skin cancer of arm, unspecified laterality Abscess Cellulitis and abscess of unspecified site Weakness- Primary Other malaise and fatigue Type 2 diabetes mellitus without complication, with long-term current use of insulin Stage 3b chronic kidney disease (Multi) Hyperkalemia Hyperpotassemia Secondary hypertension Other secondary hypertension, unspecified Mood disorder Unspecified episodic mood disorder Skin cancer of arm, unspecified laterality Mixed hyperlipidemia Stage 3b chronic kidney disease (Multi)- Primary Mixed hyperlipidemia Primary hypertension Unspecified essential hypertension documented in this encounter [facility] Work Phone: Evaluation note* Diagnosis Weakness- Primary Other malaise and fatigue Type 2 diabetes mellitus without complication, with long-term current use of insulin (Multi) Mood disorder Unspecified episodic mood disorder Other secondary hypertension Mixed hyperlipidemia Vitamin D deficiency- Primary Mood disorder Unspecified episodic mood disorder Skin cancer of arm, unspecified laterality Type 2 diabetes mellitus with hyperosmolarity without coma, with long-term current use of insulin (Multi)- Primary Weakness Other malaise and fatigue Vitamin D deficiency Secondary hypertension Other secondary hypertension, unspecified Other hyperlipidemia Mood disorder Unspecified episodic mood disorder Skin lesions Weakness- Primary Other malaise and fatigue Vitamin D deficiency Type 2 diabetes mellitus with ketoacidosis without coma, 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 (Multi) Skin lesions Mood disorder Unspecified episodic mood disorder Secondary hypertension Other secondary hypertension, unspecified Other hyperlipidemia Vitamin D deficiency- Primary Type 2 diabetes mellitus without complication, with long-term current use of insulin (Multi) Skin lesions Other secondary hypertension Mood disorder Unspecified episodic mood disorder Mixed hyperlipidemia Skin lesions- Primary Type 2 diabetes mellitus without complication, with long-term current use of insulin (Multi) Other secondary hypertension Mood disorder Unspecified episodic mood disorder Type 2 diabetes mellitus without complication, with long-term current use of insulin (Multi)- Primary Vitamin D deficiency Skin lesions Mood disorder Unspecified episodic mood disorder Other secondary hypertension Mixed hyperlipidemia Other secondary hypertension- Primary Mixed hyperlipidemia Skin cancer of arm, unspecified laterality Type 2 diabetes mellitus without complication, with long-term current use of insulin (Multi) Vitamin D deficiency Weakness Other malaise and fatigue Mood disorder Unspecified episodic mood disorder Weakness- Primary Other malaise and fatigue Vitamin D deficiency Type 2 diabetes mellitus without complication, with long-term current use of insulin (Multi) Skin cancer of arm, unspecified laterality Mood disorder Unspecified episodic mood disorder Mixed hyperlipidemia Other secondary hypertension Other secondary hypertension- Primary Mixed hyperlipidemia Type 2 diabetes mellitus without complication, with long-term current use of insulin (Multi) Type 2 diabetes mellitus without complication, with long-term current use of insulin (Multi)- Primary Other secondary hypertension Secondary hypertension- Primary Other secondary hypertension, unspecified Type 2 diabetes mellitus without complication, with long-term current use of insulin (Multi) Secondary hypertension- Primary Other secondary hypertension, unspecified Type 2 diabetes mellitus without complication, with long-term current use of insulin (Multi) Mixed hyperlipidemia Secondary hypertension- Primary Other secondary hypertension, unspecified Type 2 diabetes mellitus without complication, with long-term current use of insulin (Multi) Weakness Other malaise and fatigue Secondary hypertension- Primary Other secondary hypertension, unspecified Mixed hyperlipidemia Type 2 diabetes mellitus without complication, with long-term current use of insulin (Multi) Type 2 diabetes mellitus without complication, with long-term current use of insulin (Multi)- Primary Secondary hypertension Other secondary hypertension, unspecified Mixed hyperlipidemia Weakness Other malaise and fatigue Type 2 diabetes mellitus without complication, with long-term current use of insulin (Multi)- Primary Vitamin D deficiency Weakness Other malaise and fatigue Secondary hypertension Other secondary hypertension, unspecified Mixed hyperlipidemia Skin cancer of arm, unspecified laterality Stage 3b chronic kidney disease (Multi) Abscess- Primary Cellulitis and abscess of unspecified site Secondary hypertension Other secondary hypertension, unspecified Type 2 diabetes mellitus without complication, with long-term current use of insulin (Multi) Abscess- Primary Cellulitis and abscess of unspecified site Secondary hypertension Other secondary hypertension, unspecified Type 2 diabetes mellitus without complication, with long-term current use of insulin (Multi) Weakness- Primary Other malaise and fatigue Vitamin D deficiency Type 2 diabetes mellitus without complication, with long-term current use of insulin (Multi) Stage 3b chronic kidney disease (Multi) Hyperkalemia Hyperpotassemia Secondary hypertension Other secondary hypertension, unspecified Mood disorder Unspecified episodic mood disorder Skin cancer of arm, unspecified laterality Abscess Cellulitis and abscess of unspecified site Weakness- Primary Other malaise and fatigue Type 2 diabetes mellitus without complication, with long-term current use of insulin (Multi) Stage 3b chronic kidney disease (Multi) Hyperkalemia Hyperpotassemia Secondary hypertension Other secondary hypertension, unspecified Mood disorder Unspecified episodic mood disorder Skin cancer of arm, unspecified laterality Mixed hyperlipidemia Epidermal inclusion cyst- Primary Sebaceous cyst Inflamed seborrheic keratosis Seborrheic keratosis Skin tag Unspecified hypertrophic and atrophic condition of skin Squamous cell carcinoma of skin Other malignant neoplasm of skin, site unspecified Dermatologic problem documented in this encounter [facility] Work Phone: Hospital course Narrative No data available for this section [facility] Hospital Discharge instructions No data available for this section [facility] Progress note No data available for this section [facility] Reason for referral (narrative)* Consultation (Routine) - Authorized Specialty Diagnoses / Procedures Referred By Jena villanueva Referred To Contact Dermatology Diagnoses Nummular dermatitis Procedures Follow Up In Dermatology - [place] [id number] [facility] [place] [address] Referral ID Status Reason Start Date Expiration Date V isits Requested Visits Authorized [id number] Authorized 03/06/2023 03/05/2024 1 1 [facility] Work Phone: Reason for referral (narrative)* Diagnostic Procedure Only (Routine) - Pending Review Specialty Diagnoses / Procedures Referred By Jena villanueva Referred To Contact MOLECULAR & FUNCTIONAL IMAGING Diagnoses Encounter for screening for cardiovascular disorders Procedures NM CARDIAC PERF STRESS/PHARM MYOCARDIAL SPECT MULTIPLE STUDIES Raeann Mccray MD [address] [place] [address] Molecular & Functional Imaging [address] [place] [address] Referral ID Status Reason Start Date Expiration Date Visits Requested Visits Authorized [id number] Pending Review Auto-Generat ed Referral 06/13/2023 06/28/2024 1 1 [facility] for visit Narrative* Diagnostic Procedure Only (Routine) - Authorized Specialty Diagnoses / Procedures Referred By Jena villanueva Referred To Contact XR IMAGING Diagnoses Right wrist pain Procedures XR WRIST INJURY 4V PA/LAT/OBL/SCAPH RIGHT RADEX WRIST COMPLETE MINIMUM 3 VIEWS Suzanna Bruner, OUTSOLE MOLDER.AIRFIELD ENGINEER OFFICER [address] [place] [address] Xr Imaging Referral ID Status Reason Start Date Expiration Date Visits Requested Visits Authorized [id number] Authorized Auto-Generat ed Referral 08/28/2022 09/27/2023 1 1 [facility] for visit Narrative* Imaging (Routine) - Authorized Specialty Diagnoses / Procedures Referred By Contac t Referred To Contact Radiology Diagnoses Stage 3b chronic kidney disease (Multi) Procedures US renal complete Bobby Tracey, DO [address] [place] [address] Phone: tel: fax: Referral ID Status Reason Start Date Expiration Date Visits Requested Visits Authorized [id number] Authorized Perform Procedure 03/27/2024 03/27/2025 1 1 [facility] Work Phone: Summary Purpose Family History No Family History Records FoundNo Family History Records FoundNo Family History Records FoundNo Family History Records FoundNo Family History Records Found No data available for this section No data available for this section No data available for this section No data available for this section No Family History Records Found No data available for this section No Family History Records Found No data available for this section No data available for this section No Family History Records FoundNo Family History Records FoundNo Family History Records FoundNo Family History Records Found Advance Directives No Advanced Directives Records FoundLatest Code Status on File Code Status Date Activated Date Inactivated Comments Full Code 06/02/2022 2:25 AM 06/05/2022 8:50 PM Full Code Order Discussed With: Patient Latest Code Status on File Code Status Date Activated Date Inactivated Comments Full Code 06/02/2022 2:25 AM 06/05/2022 8:50 PM Question Answer Comments Full Code Order Discussed With: Patient Latest Code Status on File Code Status Date Activated Date Inactivated Comments Full Code 06/02/2022 2:25 AM 06/05/2022 8:50 PM Question Answer Comments Full Code Order Discussed With: Patient Reason for Referral Specialty Diagnoses / Procedures Referred By Contac t Referred To Contact Dermatology Diagnoses Neoplasm of uncertain [place] [address] [address] [place] [address] Referral ID Status Reason Start Date Expiration Date Visits Requested Visits Authorized [id number] Pending Review Specialty Services Required 08/31/2023 08/30/2024 1 1 Specialty Diagnoses / Procedures Referred By Jena villanueva Referred To Contact Diagnoses Inflamed epidermoid [place] [address] [address] [place] [address] Referral ID Status Reason Start Date Expiration Date V isits Requested Visits Authorized [id number] Pending Review 10/03/2023 10/02/2024 1 1 Additional Source Comments (unrecognized sect ion and content) No Status Records FoundNo Status Records FoundNo Status Records FoundNo Status Records FoundNo Status Records FoundNo Status Records FoundNo Status Records FoundNo Status Records FoundNo Status Records FoundNo Status Records FoundNo Status Records Found INFORMATION SOURCE (unrecogn ized section and content) DATE CREATED AUTHOR 02/06/2018 [facility] DATE CREATED AUTHOR AUTHOR'S ORGANIZ ATION 11/07/2023 [facility] DATE CREATED AUTHOR AUTHOR'S ORGANIZ ATION 02/17/2024 [facility] DATE CREATED AUTHOR AUTHOR'S ORGANIZ ATION 04/11/2024 [facility] DATE CREATED AUTHOR AUTHOR'S ORGANIZ ATION 09/20/2024 [facility] DATE CREATED AUTHOR AUTHOR'S ORGANIZ ATION 01/25/2025 [facility] DATE CREATED AUTHOR AUTHOR'S ORGANIZ ATION 02/08/2025 [facility] DATE CREATED AUTHOR AUTHOR'S ORGANIZ ATION 02/21/2025 [facility] DATE CREATED AUTHOR AUTHOR'S ORGANIZ ATION 02/22/2025 [facility] DATE CREATED AUTHOR AUTHOR'S ORGANIZ ATION 02/27/2025 [facility] DATE CREATED AUTHOR AUTHOR'S ORGANIZ ATION 03/04/2025 [facility] Source Comments (unrecognize d section and content) In the event this informatio n is protected by the Federal Confidentiality of Alcohol and Drug Abuse Patient Records regulations: The Federal rules restrict any use of the information to criminally investigate or prosecute any alcohol or drug abuse patient.[facility] the event this information is protected by the Federal Confidentiality of Alcohol and Drug Abuse Patient Records regulations: The Federal rules restrict any use of the information to criminally investigate or prosecute any alcohol or drug abuse patient.[facility] the event this information is protected by the Federal Confidentiality of Alcohol and Drug Abuse Patient Records regulations: The Federal rules restrict any use of the information to criminally investigate or prosecute any alcohol or drug abuse patient.[facility] the event this information is protected by the Federal Confidentiality of Alcohol and Drug Abuse Patient Records regulations: The Federal rules restrict any use of the information to criminally investigate or prosecute any alcohol or drug abuse patient.[facility] Care Teams (unrecognized sec tion and content) Sports Attorney Relationship Specialty Start Date End Date Ciro Schultz MD [address] [place] [address] PCP - General Internal Medicine 06/02/22 Sports Attorney Relationship Specialty Start Date End Date Ciro Schultz MD [address] [place] [address] PCP - General Internal Medicine 06/02/22 Sports Attorney Relationship Specialty Start Date End Date Ciro Schultz MD [address] [place] [address] PCP - General Internal Medicine 06/02/22 Sports Attorney Relationship Specialty Start Date End Date Ciro Schultz MD [address] [place] [address] PCP - General Internal Medicine 06/02/22 Sports Attorney Relationship Specialty Start Date End Date Generic Provider, No Assigned MD Nyasia PCP - General Internal Medicine 04/26/23 Sports Attorney Relationship Specialty Start Date End Date Generic Provider, No Assigned MD Nyasia PCP - General Internal Medicine 04/26/23 Sports Attorney Relationship Specialty Start Date End Date Generic Provider, No Assigned MD Nyasia PCP - General Internal Medicine 04/26/23 Sports Attorney Relationship Specialty Start Date End Date Generic Provider, No Assigned MD Nyasia PCP - General Internal Medicine 04/26/23 Sports Attorney Relationship Specialty Start Date End Date Generic Provider, No Assigned MD Nyasia PCP - General Internal Medicine 04/26/23 Sports Attorney Relationship Specialty Start Date End Date Generic Provider, No Assigned MD Nyasia PCP - General Internal Medicine 04/26/23 Sports Attorney Relationship Specialty Start Date End Date Generic Provider, No Assigned MD Nyasia PCP - General Internal Medicine 04/26/23 Sports Attorney Relationship Specialty Start Date End Date Generic Provider, No Assigned PcpMD PCP - General Internal Medicine 04/26/23 Sports Attorney Relationship Specialty Start Date End Date Generic Provider, No Assigned PcpMD PCP - General Internal Medicine 04/26/23 Sports Attorney Relationship Specialty Start Date End Date Generic Provider, No Assigned PcpMD PCP - General Internal Medicine 04/26/23 Sports Attorney Relationship Specialty Start Date End Date Jose Larson DO [address], [place] [address] PCP - General Internal Medicine 08/19/24 Sports Attorney Relationship Specialty Start Date End Date Jose Larson DO [address] [place] [address] PCP - General Internal Medicine 08/19/24 Sports Attorney Relationship Specialty Start Date End Date Jose Larson DO [address] [place], [place] [address] PCP - General Internal Medicine 08/19/24 Sports Attorney Relationship Specialty Start Date End Date Jose Larson DO [address] [address] PCP - General Internal Medicine 08/19/24 Sports Attorney Relationship Specialty Start Date End Date Jose Larson DO [address] [place], [place] [address] PCP - General Internal Medicine 08/19/24 Sports Attorney Relationship Specialty Start Date End Date Jose Larson DO [address] [place], [place] [address] PCP - General Internal Medicine 08/19/24 Reason for Visit (unrecogniz ed section and content) Reason Comments Follow-up 3 monthsReview labs 11/07 Specialty Diagnoses / Procedures Referred By Jena villanueva Referred To Contact Nephrology Diagnoses Stage 3b chronic kidney disease (Multi) Procedures Follow Up In Nephrology Bobby Tracey DO [address] [place] [address] Phone: tel: fax: Referral ID Status Reason Start Date Expiration Date V isits Requested Visits Authorized [id number] Authorized 07/31/2024 07/31/2025 1 1 Reason Comments MOHS Surgery Left lateral distal arm adjacent to scar Specialty Diagnoses / Procedures Referred By Jena villanueva Referred To Contact Dermatology Diagnoses Squamous cell carcinoma in situ (SCCIS) Basal cell carcinoma (BCC) of skin of right upper extremity including shoulder Cesar Broderick MD [address] [place] [address] Phone: tel: fax: Referral ID Status Reason Start Date Expiration Date Visits Requested Visits Authorized [id number] Authorized Specialty Services Required 05/30/2024 05/30/2025 2 2 Reason Comments MOHS Surgery Left Wrist-Posterior Specialty Diagnoses / Procedures Referred By Jena villanueva Referred To Contact Dermatology Diagnoses Squamous cell carcinoma of skin Cesar Broderick MD [address] [place] [address] Phone: tel: fax: Referral ID Status Reason Start Date Expiration Date Visits Requested Visits Authorized [id number] Authorized Specialty Services Required 05/21/2024 11/10/2024 3 3 Reason Comments Follow-up 3 monthsReview labs Referral ID Status Reason Start Date Expiration Date V isits Requested Visits Authorized [id number] Authorized 04/30/2024 04/30/2025 1 1 Reason Comments Rash Pt goes by Agustín. Re d spot on left wrist, left shoulder, left arm. Pt lives in assisted living facility Reason Comments Consult Reason Comments Stress Test Specialty Diagnoses / Procedures Referred By Jena t Referred To Contact MOLECULAR & FUNCTIONAL IMAGING Diagnoses Encounter for screening for cardiovascular disorders Procedures NM CARDIAC PERF STRESS/PHARM MYOCARDIAL SPECT MULTIPLE STUDIES Raeann Mccray MD [address] [facility] [address] [address] [facility] [address] [place] [id number] Molecular & Functional Imaging [address] [place] [address] Referral ID Status Reason Start Date Expiration Date V isits Requested Visits Authorized [id number] Closed Auto-Generat ed Referral Patient Cleared - Admin/Chairm an/Director advise to proceed or did not respond 06/18/2023 08/02/2023 1 1 Reason Comments Suspicious Skin Lesion Area to L arm Reason Comments curettage Left upper back Specialty Diagnoses / Procedures Referred By Jena villanueva Referred To Contact Dermatology Diagnoses Basal cell carcinoma (BCC) of skin of left upper extremity including shoulder Procedures Prior Authorization for Skin Excision [place] [address] [place] [address] Referral ID Status Reason Start Date Expiration Date V isits Requested Visits Authorized [id number] Authorized 09/06/2023 11/21/2023 1 1 Reason Comments Consult Chronic kidney disea se Specialty Diagnoses / Procedures Referred By eJna villanueva Referred To Contact Nephrology Diagnoses Stage 3b chronic kidney disease (Multi) Alecia Morse, OUTSOLE [employer] ENGINEER OFFICER [address] [facility] [place], [facility] [address] [id number] Phone: tel: fax: Referral ID Status Reason Start Date Expiration Date Visits Requested Visits Authorized [id number] Authorized Specialty Services Required 01/22/2024 01/21/2025 1 1 Reason Comments Suspicious Skin Lesion Poss cyst on Ches t. ILK at at last appt. Pt accompanied by Nitroglycerin Supervisor. Specialty Diagnoses / Procedures Referred By Jena villanueva Referred To Contact Dermatology Diagnoses Neoplasm of uncertain [place] [address] [address] [place] [address] Referral ID Status Reason Start Date Expiration Date Visits Requested Visits Authorized [id number] Authorized Specialty Services Required 08/31/2023 02/14/2024 1 1 Reason Comments Follow-up 1 monthReview Labs & Renal US Referral ID Status Reason Start Date Expiration Date V isits Requested Visits Authorized [id number] Authorized 03/27/2024 03/27/2025 1 1 Reason Comments Skin Check Reason Comments MOHS Surgery Reason Comments Excision Right Lateral Dorsal Mid Forearm Reason Comments Wound Check Reason Comments Suspicious Skin Lesion B/l wrist lesions , left anterior neck lesion, chest lesion (pt states thinks its a cyst). Personal history of multiple NMSC. Inactive Administered Medications - up to 3 most recent administrations Administered Medications (un recognized section and content) Medication Order MAR Action Action Date Dose Rate Site regadenoson 0.4 mg injection (LEXISCAN) 0.4 mg, INTRAVENOUS, ONCE, 1 dose, On Sun06/19/23 at 1030, Give 0.4 mg (5 mL) over ~10 seconds, followed immediately by a 5 mL saline flush. Wait 10-20 seconds, then administer the radionuclide myocardial perfusion imaging agent. Given 06/19/2023 9:48 AM EST 0.4 mg FOR RECORDS PERTAINING TO PATIENTS WHO ARE [...] BE BASED ON THE PRIMARY CLINICAL RECORDS. [employer] provides no warranty or guarantee of the accuracy or completeness of information in this document.
[2025-03-24 08:36] LABS: AST(SGOT) 22 U/L (<=37); Alanine Aminotransfer ALT/SGPT 15 U/L (<=46); Anion Gap 11 (5-15); BUN 36 mg/dL (4-19); BUN/Creat Ratio 16.5 RATIO (10-20); Calcium,Total 9.0 mg/dL (7.6-11.0); Carbon Dioxide 20.2 mmol/L (21.0-32.0); Chloride 107 mmol/L (98-108); Glucose 105 mg/dL (70-99); Potassium 5.1 mmol/L (3.3-5.1)
[2025-03-24 08:38] LABS: Cholesterol 111 mg/dL (<=200); Low Density Lipoprotein Calc. 53 mg/dL; Triglycerides 98 mg/dL; Very Low Density Lipoprotein 20 mg/dL (5-40); cholesterol:hdl ratio screen 2.82
== END ==
LOC: OLS.SWAL 05:00
DX: E11.9 Type 2 diabetes mellitus without complications (principal); I10 Essential (primary) hypertension
CPT/HCPCS: 36415; 80048; 80061; 84450; 84460

== ENCOUNTER → 2025-04-13 05:00 | Outpatient (REF) | payer MEDICARE, MEDICAID, SELFPAY ==
--- OUTSIDE RECORDS SUMMARY | 2025-04-13 04:21 | XMS RPT_ITS | CCD ---
Author Organization [facility] Care Team Providers Care Button Bradder Name Role Phone CRISTOFER OSCAR ULISES Unavailable [...] JOSE LARSON DO, V Primary Care Physician CIOR SCHULTZ Primary Care Unavailable ROGELIO COMBS Admitting [...] ON FILE] Propensity to adverse reactions (disorder) [facility] 3 Repository Medications Current Medications Medication [...] Dispensed: 0 take 2 tablets by mo [facility] every four hours as needed acetaminophen (Tylenol) [...] 20 mg/ml oral solution (1 source) Uncompetitive T-byurol-W-aspartat e Receptor Antagonist, Sigma-1 Agonist take 5 [...] 0 Refill(s) 08/26/2024 Active polyethylene glycol 3350 12754 mg powder for oral solution (7 sources) [...] meq/ml nasal spray (1 source) sodium chloride (Panacea) 0.65 % nasal spray Administer 1 spray into affected nostril(s) every 6 hours if needed. 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, [address] Calcium [Mass/Vol] 9.2 mg/dL Normal 7.6-11.0 [facility] Comment on above: Performed By: #### L 501.9985, L500.2500, L500.4100, L100.0500, L506.1001, L501.9520 #### [facility] [address] [place], [address] Chloride [Moles/Vol] 109 mmol/L High 98-108 [facility] Comment on above: Performed By: #### L 501.9985, L500.2500, L500.4100, L100.0500, L506.1001, L501.9520 #### [facility] [address] [place], [address] CO2 [Moles/Vol] 20.9 mmol/L Low 21.0-32.0 [facility] Comment on above: Performed By: #### L 501.9985, L500.2500, L500.4100, L100.0500, L506.1001, L501.9520 #### [facility] [address] [place], [address] Creatinine [Mass/Vol] 2.00 mg/dL High 0.70-1.20 [facility] Comment on above: Performed By: #### L 501.9985, L500.2500, L500.4100, L100.0500, L506.1001, L501.9520 #### [facility] [address] [place], [address] GAP 11 Normal 5-15 [facility] Comment on above: Performed By: #### L 501.9985, L500.2500, L500.4100, L100.0500, L506.1001, L501.9520 #### [facility] [address] [place], [address] GFR/1.73 sq M.predicted among non-blacks MDRD (S/P/Bld) [Vol rate/Area] 37 mL/min/{1.73_m2} Low >60 [facility] Comment on above: Result Comment: mL/m in/1.73m2 CKD-EPI Creatinine Equation (2020) Performed By: #### L 501.9985, L500.2500, L500.4100, L100.0500, L506.1001, L501.9520 #### [facility] [address] [place], [address] Glucose [Mass/Vol] 118 mg/dL High 70-99 [facility] Comment on above: Performed By: #### L 501.9985, L500.2500, L500.4100, L100.0500, L506.1001, L501.9520 #### [facility] [address] [place], [address] Potassium [Moles/Vol] 4.3 mmol/L Normal 3.3-5.1 [facility] Comment on above: Performed By: #### L 501.9985, L500.2500, L500.4100, L100.0500, L506.1001, L501.9520 #### [facility] [address] [place], [address] Sodium [Moles/Vol] 141 mmol/L Normal 133-145 [facility] Comment on above: Performed By: #### L 501.9985, L500.2500, L500.4100, L100.0500, L506.1001, L501.9520 #### [facility] [address] [place], [address] Urea nitrogen [Mass/Vol] 30 mg/dL High 4-19 [facility] Comment on above: Performed By: #### L 501.9985, L500.2500, L500.4100, L100.0500, L506.1001, L501.9520 #### [facility] [address] [place], [address] CBC-Complete Blood Cnt No Di ffon 03-03-2025 Erythrocyte distribution width (RBC) [Ratio] 14.4 % Normal 11.6-14.6 [facility] Comment on above: Performed By: #### L 501.9985, L500.2500, L500.4100, L100.0500, L506.1001, L501.9520 #### [facility] [address] [place], [address] Hematocrit (Bld) [Volume fraction] 37.6 % Low 40-54 [facility] Comment on above: Performed By: #### L 501.9985, L500.2500, L500.4100, L100.0500, L506.1001, L501.9520 #### [facility] [address] [place], [address] Hemoglobin (Bld) [Mass/Vol] 12.1 g/dL Low 13.0-16.5 [facility] Comment on above: Performed By: #### L 501.9985, L500.2500, L500.4100, L100.0500, L506.1001, L501.9520 #### [facility] [address] [place], [address] MCH (RBC) [Entitic mass] 29.6 pg Normal 27.0-32.0 [facility] Comment on above: Performed By: #### L 501.9985, L500.2500, L500.4100, L100.0500, L506.1001, L501.9520 #### [facility] [address] [place], [address] MCHC (RBC) [Mass/Vol] 32.2 g/dL Normal 32-36 [facility] Comment on above: Performed By: #### L 501.9985, L500.2500, L500.4100, L100.0500, L506.1001, L501.9520 #### [facility] [address] [place], [address] MCV (RBC) [Entitic vol] 91.9 fL Normal 80-94 [facility] Comment on above: Performed By: #### L 501.9985, L500.2500, L500.4100, L100.0500, L506.1001, L501.9520 #### [facility] [address] [place], [address] Platelet mean volume (Bld) [Entitic vol] 10.4 fL Normal 6.2-12.0 [facility] Comment on above: Performed By: #### L 501.9985, L500.2500, L500.4100, L100.0500, L506.1001, L501.9520 #### [facility] [address] [place], [address] Platelets (Bld) [#/Vol] 462 10*3/uL High 150-450 [facility] Comment on above: Performed By: #### L 501.9985, L500.2500, L500.4100, L100.0500, L506.1001, L501.9520 #### [facility] [address] [place], [address] RBC (Bld) [#/Vol] 4.09 10*6/uL Low 4.6-6.2 [facility] Comment on above: Performed By: #### L 501.9985, L500.2500, L500.4100, L100.0500, L506.1001, L501.9520 #### [facility] [address] [place], [address] RDW SD 48.8 fl High 35.1-43.9 [facility] Comment on above: Performed By: #### L 501.9985, L500.2500, L500.4100, L100.0500, L506.1001, L501.9520 #### [facility] [address] [place], [address] WBC (Bld) [#/Vol] 10.8 10*3/uL Normal 4.4-11.0 [facility] Comment on above: Performed By: #### L 501.9985, L500.2500, L500.4100, L100.0500, L506.1001, L501.9520 #### [facility] [address] [place], [address] Hemoglobin A1con 03-03-2025 HbA1c (Bld) [Mass fraction] 6.7 % High <=5.6 [facility] Comment on above: Result Comment: Norm al < 5.7 % Prediabetic 5.7 - 6.4 % Diabetic >or= 6.5 % Please note range changes. Performed By: #### L 501.9985, L500.2500, L500.4100, L100.0500, L506.1001, L501.9520 #### [facility] [address] [place], [address] Lipid Profileon 03-03-2025 CHOL:HDL 2.64 Normal [facility] Comment on above: Performed By: #### L 501.9985, L500.2500, L500.4100, L100.0500, L506.1001, L501.9520 #### [facility] [address] [place], [address] Cholesterol [Mass/Vol] 98 mg/dL Normal <=200 [facility] Comment on above: Result Comment: Chol esterol level, Desirable <200 mg/dL Borderline high cholesterol 200-239 mg/dL High cholesterol >=240 mg/dL Recommendations of the NCEP Adult Treatment Panel for the following risk-cutoff thresholds for the [place] population. Performed By: #### L 501.9985, L500.2500, L500.4100, L100.0500, L506.1001, L501.9520 #### [facility] [address], [address] Cholesterol in HDL [Mass/Vol] 37 mg/dL Low [facility] Comment on above: Result Comment: Debbie onal Cholesterol Education Program (NCEP) guidelines: <40 mg/dL: Low HDL-cholesterol (major risk factor for CHD) >= 60 mg/dL: High HDL-cholesterol (negative risk factor for CHD) HDL-cholesterol is affected by a number of factors, e.g. smoking, exercise, hormones, sex and age. Performed By: #### L 501.9985, L500.2500, L500.4100, L100.0500, L506.1001, L501.9520 #### [facility] [address] [place], [address] Cholesterol in LDL [Mass/Vol] 43 mg/dL Normal [facility] Comment on above: Result Comment: Bord vkvclp=612-356 mg/dL Higher Ivro=322 mg/dL or greater Orozco Equation 2020 for LDL-C Performed By: #### L 501.9985, L500.2500, L500.4100, L100.0500, L506.1001, L501.9520 #### [facility] [address] [place], [address] Cholesterol in VLDL [Mass/Vol] 19 mg/dL Normal 5-40 [facility] Comment on above: Performed By: #### L 501.9985, L500.2500, L500.4100, L100.0500, L506.1001, L501.9520 #### [facility] [address] [place], [address] Triglyceride [Mass/Vol] 94 mg/dL Normal [facility] Comment on above: Result Comment: The drugs N-Acetylcysteine and Metamizole may falsely depress this assay. Normal range: <150 mg/dL Borderline High: 150-199 mg/dL High: 200-499 mg/dL Very High: >500 mg/dL Performed By: #### L 501.9985, L500.2500, L500.4100, L100.0500, L506.1001, L501.9520 #### [facility] [address] [place], [address] Thyroid Stim Hormone (TSH)on 03-03-2025 TSH 1.170 uIU/mL Normal 0.300-4.200 [facility] Comment on above: Performed By: #### L 501.9985, L500.2500, L500.4100, L100.0500, L506.1001, L501.9520 #### [facility] [address] [place], [address] Vitamin D,25 Hydroxyon 03-03 Vitamin D 25-OH 21.6 ng/mL Low 30-100 [facility] Comment on above: Result Comment: Ann-Marie min D Status Deficiency: <20 ng/mL (50nmol/L) Insufficiency: 20-30 ng/mL (50-75 nmol/L) Sufficiency: 30-100 ng/mL (75-250 nmol/L) Toxicity: >100 ng/mL (>250 nmol/L) Performed By: #### L 501.9985, L500.2500, L500.4100, L100.0500, L506.1001, L501.9520 #### [facility] [address] [place], [address] Destr of lesionon 02-25-2025 Complexity: simple Destruction method: cryotherapy Informed consent: discussed and consent obtained Lesion destroyed using liquid nitrogen: Yes Outcome: patient tolerated procedure well with no complications [facility] Work Phone: [facility] Work Phone: .Auto Diffon 02-15-2025 Basophil, Absolute 0.1 10 3/mcL Normal 0.0-0.3 [facility] Comment on above: Performed By: #### B MP, CBC, MDW, ADIFF, GFR, ANEU #### [address] [address] Basophils/100 WBC (Bld) 0.7 % Normal 0.0-2.5 [facility] Comment on above: Performed By: #### B MP, CBC, MDW, ADIFF, GFR, ANEU #### [address] [address] Eosinophil, Absolute 1.4 10 3/mcL High 0.0-0.7 [facility] Comment on above: Performed By: #### B MP, CBC, MDW, ADIFF, GFR, ANEU #### [address] [address] Eosinophils/100 WBC (Bld) 10.6 % High 0.0-6.0 [facility] Comment on above: Performed By: #### B MP, CBC, MDW, ADIFF, GFR, ANEU #### [address] [address] Lymphocyte, Absolute 2.2 10 3/mcL Normal 0.9-4.3 [facility] Comment on above: Performed By: #### B MP, CBC, MDW, ADIFF, GFR, ANEU #### [address] [address] Lymphocytes/100 WBC (Bld) 16.3 % Low 20.0-40.0 [facility] Comment on above: Performed By: #### B MP, CBC, MDW, ADIFF, GFR, ANEU #### [address] [address] Monocyte, Absolute 0.7 10 3/mcL Normal 0.1-1.4 [facility] Comment on above: Performed By: #### B MP, CBC, MDW, ADIFF, GFR, ANEU #### [address] [address] Monocytes/100 WBC (Bld) 5.4 % Normal 2.0-13.0 [facility] Comment on above: Performed By: #### B MP, CBC, MDW, ADIFF, GFR, ANEU #### [address] [address] Neutrophils/100 WBC (Bld) 67.0 % Normal 50.0-75.0 [facility] Comment on above: Performed By: #### B MP, CBC, MDW, ADIFF, GFR, ANEU #### [address] [address] .GFRon 02-15-2025 Estimated Glomerular Filtration Rate 36 ml/min/1.73sqm Normal [facility] Comment on above: Result Comment: Stages [...] MP, CBC, MDW, ADIFF, GFR, ANEU #### [address] [place] [place], [place] [address] .MDWon 02-15-2025 Monocyte Distribution Width 14.67 Normal 0.00-20.00 [facility] Comment on above: Result Comment: For ED adult patients suspected of sepsis, MDW<=20.0 does not rule out sepsis or risk of sepsis Performed By: #### B MP, CBC, MDW, ADIFF, GFR, ANEU #### [address] [address] .NEUABSon 02-15-2025 Neutrophil, Absolute 9.1 10 3/mcL High 2.3-8.1 [facility] Comment on above: Performed By: #### B MP, CBC, MDW, ADIFF, GFR, ANEU #### [address] [address] BMPon 02-15-2025 BUN/Creatinine Ratio 16 ratio Normal 7-27 [facility] Comment on above: Performed By: #### B MP, CBC, MDW, ADIFF, GFR, ANEU #### [address] [address] Calcium [Mass/Vol] 9.2 mg/dL Normal 8.4-10.2 [facility] Comment on above: Performed By: #### B MP, CBC, MDW, ADIFF, GFR, ANEU #### [address] [address] Chloride [Moles/Vol] 104 mmol/L Normal 98-107 [facility] Comment on above: Performed By: #### B MP, CBC, MDW, ADIFF, GFR, ANEU #### [place] [id number] CO2 [Moles/Vol] 24 mmol/L Normal 23-31 [facility] Comment on above: Performed By: #### B MP, CBC, MDW, ADIFF, GFR, ANEU #### [address] [address] Creatinine [Mass/Vol] 2.08 mg/dL High 0.67-1.17 [facility] Comment on above: Performed By: #### B MP, CBC, MDW, ADIFF, GFR, ANEU #### [place] [address] Electrolyte Balance 12.0 mEq/L Normal 4.0-15.0 [facility] Comment on above: Performed By: #### B MP, CBC, MDW, ADIFF, GFR, ANEU #### [address] [address] Glucose [Mass/Vol] 174 mg/dL High 80-115 [facility] Comment on above: Performed By: #### B MP, CBC, MDW, ADIFF, GFR, ANEU #### [address] [address] Potassium [Moles/Vol] 3.8 mmol/L Normal 3.5-5.1 [facility] Comment on above: Performed By: #### B MP, CBC, MDW, ADIFF, GFR, ANEU #### [address] [address] Sodium [Moles/Vol] 140 mmol/L Normal 136-145 [facility] Comment on above: Performed By: #### B MP, CBC, MDW, ADIFF, GFR, ANEU #### [address] [address] Urea nitrogen [Mass/Vol] 34 mg/dL High 7-18 [facility] Comment on above: Performed By: #### B MP, CBC, MDW, ADIFF, GFR, ANEU #### [address] [address] CBCon 02-15-2025 Erythrocyte distribution width (RBC) [Ratio] 15.6 % High 11.5-15.5 [facility] Comment on above: Performed By: #### B MP, CBC, MDW, ADIFF, GFR, ANEU #### [address] [address] Hematocrit (Bld) [Volume fraction] 42.5 % Normal 40.0-52.0 [facility] Comment on above: Performed By: #### B MP, CBC, MDW, ADIFF, GFR, ANEU #### [address] [address] Hgb 14.2 G/dL Normal 13.0-17.5 [facility] Comment on above: Performed By: #### B MP, CBC, MDW, ADIFF, GFR, ANEU #### [address] [address] MCH (RBC) [Entitic mass] 30.6 pg Normal 27.0-33.0 [facility] Comment on above: Performed By: #### B MP, CBC, MDW, ADIFF, GFR, ANEU #### [address] [address] MCHC 33.4 G/dL Normal 32.0-36.0 [facility] Comment on above: Performed By: #### B MP, CBC, MDW, ADIFF, GFR, ANEU #### [address] [address] MCV (RBC) [Entitic vol] 91.4 fL Normal 81.0-100.0 [facility] Comment on above: Performed By: #### B MP, CBC, MDW, ADIFF, GFR, ANEU #### [address] [address] Platelet 513 10 3/mcL High 150-450 [facility] Comment on above: Performed By: #### B MP, CBC, MDW, ADIFF, GFR, ANEU #### [address] [address] Platelet mean volume (Bld) [Entitic vol] 8.3 fL Normal 6.4-10.5 [facility] Comment on above: Performed By: #### B MP, CBC, MDW, ADIFF, GFR, ANEU #### [address] [address] RBC 4.65 10 6/mcL Normal 4.50-6.00 [facility] Comment on above: Performed By: #### B MP, CBC, MDW, ADIFF, GFR, ANEU #### [address] [address] WBC 13.6 10 3/mcL High 4.5-10.8 [facility] Comment on above: Performed By: #### B MP, CBC, MDW, ADIFF, GFR, ANEU #### Mariel[place] [address] [address] LABORATORYOrdered By: SYSTEM SYSTEM on 02-15-2025 Basophils [...] PM Ordering Provider: AQUILINO CASEY RP Normal [facility] 02-06-2025 OV Office Visit (URCANT ) CIRO HAWKINS ([id number]) 1965 M Date Time Provider Department 02/06/25 1:00 PM KEVAN MERCHANT During your visit today, we recorded the following information about you: Kevan Merchant MD 02/06/2025 1:38 PM Signed [facility] NEW PATIENT [...] chloride 0.65 % nasal spray Use 1 [place] in the nose every 6 hours as [...] for nausea/vo (more content not included)... Normal [facility] 01-20-2025 [facility] Letter Text Normal [facility] 01-13-2025 [facility] Letter Text Normal [facility] 01-06-2025 [facility] Letter Text Normal [facility] C. trachomatis+N. gonorrhoea e DNA JEFFREY+probe Ql (Unsp spec)on 01-02-2025 C. trachomatis rRNA JEFFREY+probe Ql (Unsp spec) Not detected Normal Not detected [facility] Comment on above: Order Comment: Speci men Type: BLOOD SPECIMEN Ordering Facility: [facility] Address: [address] [place] [address] Performed By: #### S LACT #### [facility] CLIA [id number] [address] N. gonorrhoeae rRNA JEFFREY+probe Ql (Unsp spec) Not detected Normal Not detected [facility] Comment on above: Order Comment: Speci men Type: BLOOD SPECIMEN Ordering Facility: [facility] Address: [address] [address] Performed By: #### S LACT #### [facility] CLIA [id number] [address] [place] [address] STATES OF [facility] CBC W Auto Differential pane l (Bld)on 01-02-2025 Basophils (Bld) [#/Vol] 0.09 10*3/uL Normal <0.11 [facility] Comment on above: Order Comment: Speci men Type: BLOOD SPECIMEN Ordering Facility: [facility] Address: [address] [address] Performed By: #### 5 7021-8 #### [facility] CLIA [id number] [address] [place] [address] [place] Basophils/100 WBC (Bld) 0.7 % Normal [facility] Comment on above: Order Comment: Speci men Type: BLOOD SPECIMEN Ordering Facility: [facility] Address: [address] [address] Performed By: #### 5 7021-8 #### [facility] CLIA [id number] [address] [place] [address] STATES OF [facility] Differential cell count method Nom (Bld) Auto Normal [facility] Comment on above: Order Comment: Speci men Type: BLOOD SPECIMEN Ordering Facility: [facility] Address: [address] [address] Performed By: #### 5 7021-8 #### [facility] CLIA [id number] [address] [place] [address] [place] Eosinophils (Bld) [#/Vol] 0.42 10*3/uL Normal <0.46 [facility] Comment on above: Order Comment: Speci men Type: BLOOD SPECIMEN Ordering Facility: [facility] Address: [address] [address] Performed By: #### 5 7021-8 #### [facility] CLIA [id number] [address] [place] [address] [place] Eosinophils/100 WBC (Bld) 3.3 % Normal [facility] Comment on above: Order Comment: Speci men Type: BLOOD SPECIMEN Ordering Facility: [facility] Address: [address] [address] Performed By: #### 5 7021-8 #### [facility] CLIA [id number] [address] [place] [address] [place] Erythrocyte distribution width (RBC) [Ratio] 16.4 % High 11.5-15.0 [facility] Comment on above: Order Comment: Speci men Type: BLOOD SPECIMEN Ordering Facility: [facility] Address: [address] [address] Performed By: #### 5 7021-8 #### [facility] CLIA [id number] [address] [place] [address] [place] Hematocrit (Bld) [Volume fraction] 41.7 % Normal 39.0-51.0 [facility] Comment on above: Order Comment: Speci men Type: BLOOD SPECIMEN Ordering Facility: [facility] Address: [address] [address] Performed By: #### 5 7021-8 #### [facility] CLIA [id number] [address] [place] [address] [place] Hemoglobin (Bld) [Mass/Vol] 13.7 g/dL Normal 13.0-17.0 [facility] Comment on above: Order Comment: Speci men Type: BLOOD SPECIMEN Ordering Facility: [facility] Address: [address] [address] Performed By: #### 5 7021-8 #### [facility] CLIA [id number] [address] [place] [address] [place] Immature granulocytes (Bld) [#/Vol] 0.05 10*3/uL Normal <0.10 [facility] Comment on above: Order Comment: Speci men Type: BLOOD SPECIMEN Ordering Facility: [facility] Address: [address] [address] Performed By: #### 5 7021-8 #### [facility] CLIA [id number] [address] [place] [address] [place] Immature granulocytes/100 WBC (Bld) 0.4 % Normal [facility] Comment on above: Order Comment: Speci men Type: BLOOD SPECIMEN Ordering Facility: [facility] Address: [address] [address] Performed By: #### 5 7021-8 #### [facility] CLIA [id number] [address] [place] [address] [place] Lymphocytes (Bld) [#/Vol] 2.15 10*3/uL Normal 1.00-4.00 [facility] Comment on above: Order Comment: Speci men Type: BLOOD SPECIMEN Ordering Facility: [facility] Address: [address] [address] Performed By: #### 5 7021-8 #### [facility] CLIA [id number] [address] [place] [address] [place] Lymphocytes/100 WBC (Bld) 17.1 % Normal [facility] Comment on above: Order Comment: Speci men Type: BLOOD SPECIMEN Ordering Facility: [facility] Address: [address] [address] Performed By: #### 5 7021-8 #### [facility] CLIA [id number] [address] [place] [address] [place] MCH (RBC) [Entitic mass] 30.2 pg Normal 26.0-34.0 [facility] Comment on above: Order Comment: Speci men Type: BLOOD SPECIMEN Ordering Facility: [facility] Address: [address] [address] Performed By: #### 5 7021-8 #### [facility] CLIA [id number] [address] [place] [address] [place] MCHC (RBC) [Mass/Vol] 32.9 g/dL Normal 30.5-36.0 [facility] Comment on above: Order Comment: Speci men Type: BLOOD SPECIMEN Ordering Facility: [facility] Address: [address] [place] [address] Performed By: #### 5 7021-8 #### [facility] CLIA [id number] [address] [place] [address] [place] MCV (RBC) [Entitic vol] 91.9 fL Normal 80.0-100.0 [facility] Comment on above: Order Comment: Speci men Type: BLOOD SPECIMEN Ordering Facility: [facility] Address: [address] [place] [address] Performed By: #### 5 7021-8 #### [facility] CLIA [id number] [address] [place] [address] [place] Monocytes (Bld) [#/Vol] 0.95 10*3/uL High <0.87 [facility] Comment on above: Order Comment: Speci men Type: BLOOD SPECIMEN Ordering Facility: [facility] Address: [address] [place] [address] Performed By: #### 5 7021-8 #### [facility] CLIA [id number] [address] [place] [address] [place] Monocytes/100 WBC (Bld) 7.6 % Normal [facility] Comment on above: Order Comment: Speci men Type: BLOOD SPECIMEN Ordering Facility: [facility] Address: [address] [place] [address] Performed By: #### 5 7021-8 #### [facility] CLIA [id number] [address] [place] [address] [place] Neutrophils (Bld) [#/Vol] 8.89 10*3/uL High 1.45-7.50 [facility] Comment on above: Order Comment: Speci men Type: BLOOD SPECIMEN Ordering Facility: [facility] Address: [address] [place] [address] Performed By: #### 5 7021-8 #### [facility] CLIA [id number] [address] [place] [address] [place] Neutrophils/100 WBC (Bld) 70.9 % Normal [facility] Comment on above: Order Comment: Speci men Type: BLOOD SPECIMEN Ordering Facility: [facility] Address: [address] [address] Performed By: #### 5 7021-8 #### [facility] CLIA [id number] [address] [place] [address] [place] Nucleated RBC (Bld) [#/Vol] 10*3/uL Normal <0.01 [facility] Comment on above: Order Comment: Speci men Type: BLOOD SPECIMEN Ordering Facility: [facility] Address: [address] [address] Performed By: #### 5 7021-8 #### [facility] CLIA [id number] [address] [place] [address] [place] Nucleated RBC/100 WBC (Bld) [Ratio] 0.0 /100 WBC Normal [facility] Comment on above: Order Comment: Speci men Type: BLOOD SPECIMEN Ordering Facility: [facility] Address: [address] [address] Performed By: #### 5 7021-8 #### [facility] CLIA [id number] [address] [place] [address] [place] Platelet mean volume (Bld) [Entitic vol] 10.0 fL Normal 9.0-12.7 [facility] Comment on above: Order Comment: Speci men Type: BLOOD SPECIMEN Ordering Facility: [facility] Address: [address] [address] Performed By: #### 5 7021-8 #### [facility] CLIA [id number] [address] [place] [address] [place] Platelets (Bld) [#/Vol] 459 10*3/uL High 150-400 [facility] Comment on above: Order Comment: Speci men Type: BLOOD SPECIMEN Ordering Facility: [facility] Address: [address] [address] Performed By: #### 5 7021-8 #### [facility] CLIA [id number] [address] [place] [address] RBC (Bld) [#/Vol] 4.54 10*6/uL Normal 4.20-6.00 [facility] Comment on above: Order Comment: Speci men Type: BLOOD SPECIMEN Ordering Facility: [facility] Address: [address] [address] Performed By: #### 5 7021-8 #### [facility] CLIA [id number] [address] [place] [address] WBC (Bld) [#/Vol] 12.55 10*3/uL High 3.70-11.00 [facility] Comment on above: Order Comment: Speci men Type: BLOOD SPECIMEN Ordering Facility: [facility] Address: [address] [address] Performed By: #### 5 7021-8 #### [facility] CLIA [id number] [address] [place] [address] Comprehensive metabolic 2000 panelon 01-02-2025 Albumin [Mass/Vol] 4.0 g/dL Normal 3.2-5.0 [facility] Comment on above: Order Comment: Speci men Type: BLOOD SPECIMEN Ordering Facility: [facility] Address: [address] [address] Performed By: #### S LACT #### [facility] CLIA [id number] [address] [place] [address] STATES OF [facility] ALP [Catalytic activity/Vol] 58 U/L Normal 45-117 [facility] Comment on above: Order Comment: Speci men Type: BLOOD SPECIMEN Ordering Facility: [facility] Address: [address] [address] Performed By: #### S LACT #### [facility] CLIA [id number] [address] [place] [address] ALT [Catalytic activity/Vol] 15 U/L Normal 13-61 [facility] Comment on above: Order Comment: Speci men Type: BLOOD SPECIMEN Ordering Facility: [facility] Address: [address] [address] Result Comment: Resu lts may be falsely depressed after the administration of Sulfasalazine and/or Sulfapyridine. Performed By: #### S LACT #### [facility] CLIA [id number] [address] [place] [address] [place] Anion gap [Moles/Vol] 11 mmol/L Normal 5-16 [facility] Comment on above: Order Comment: Speci men Type: BLOOD SPECIMEN Ordering Facility: [facility] Address: [address] [address] Performed By: #### S LACT #### [facility] CLIA [id number] [address] [place] [address] [place] AST [Catalytic activity/Vol] 21 U/L Normal 8-34 [facility] Comment on above: Order Comment: Speci men Type: BLOOD SPECIMEN Ordering Facility: [facility] Address: [address] [address] Result Comment: Resu lts may be falsely depressed after the administration of Sulfasalazine and/or Sulfapyridine. Performed By: #### S LACT #### [facility] CLIA [id number] [address] [place] [address] [place] Bilirubin [Mass/Vol] 0.6 mg/dL Normal 0.2-1.0 [facility] Comment on above: Order Comment: Speci men Type: BLOOD SPECIMEN Ordering Facility: [facility] Address: [address] [address] Performed By: #### S LACT #### [facility] CLIA [id number] [address] [place] [address] [place] Calcium [Mass/Vol] 9.8 mg/dL Normal 8.5-10.5 [facility] Comment on above: Order Comment: Speci men Type: BLOOD SPECIMEN Ordering Facility: [facility] Address: [address] [address] Performed By: #### S LACT #### [facility] CLIA [id number] [address] [place] [address] [place] Chloride [Moles/Vol] 102 mmol/L Normal 98-107 [facility] Comment on above: Order Comment: Speci men Type: BLOOD SPECIMEN Ordering Facility: [facility] Address: [address] [address] Performed By: #### S LACT #### [facility] CLIA [id number] [address] [place] [address] [place] CO2 [Moles/Vol] 25 mmol/L Normal 21-32 [facility] Comment on above: Order Comment: Speci men Type: BLOOD SPECIMEN Ordering Facility: [facility] Address: [address] [address] Performed By: #### S LACT #### [facility] CLIA [id number] [address] [place] [address] [place] Creatinine [Mass/Vol] 1.68 mg/dL High 0.50-1.40 [facility] Comment on above: Order Comment: Speci men Type: BLOOD SPECIMEN Ordering Facility: [facility] Address: [address] [address] Result Comment: Jeanette ents receiving either N-Acetylcysteine (NAC) or Metamizole prior to venipuncture, may have falsely depressed results. Performed By: #### S LACT #### [facility] CLIA [id number] [address] [place] [address] [place] eGFRcr SerPlBld CKD-EPI 2020 46 mL/min/1.73m??? Low >=60 [facility] Comment on above: Order Comment: Speci men Type: BLOOD SPECIMEN Ordering Facility: [facility] Address: [address] [address] Result Comment: Shruti mated Glomerular Filtration Rate [...] GFR. Performed By: #### S LACT #### [facility] CLIA [id number] [address] [place], [place] [address] [place] Glucose [Mass/Vol] 125 mg/dL High 70-100 [facility] Comment on above: Order Comment: Wayne medrano Type: BLOOD SPECIMEN Ordering Facility: [facility] Address: [address] [place], [place] [address] Result Comment: The [place] [employer] (ADA) provides guidance for cutoff [...] Standards of Medical Care in Diabetes 2016, [place] [employer]. Diabetes Care. 2016.39(Suppl 1). Results may be falsely elevated after the administration of Sulfapyridine. Results may be falsely depressed after the administration of Sulfasalazine. Performed By: #### S LACT #### [facility] CLIA [id number] [address] [place] [address] [place] Potassium [Moles/Vol] 4.1 mmol/L Normal 3.5-5.1 [facility] Comment on above: Order Comment: Wayne medrano Type: BLOOD SPECIMEN Ordering Facility: [facility] Address: [address] [place] [address] Performed By: #### S LACT #### [facility] CLIA [id number] [address] [place], [place] [address] [place] Protein [Mass/Vol] 7.6 g/dL Normal 6.0-8.5 [facility] Comment on above: Order Comment: Wayne medrano Type: BLOOD SPECIMEN Ordering Facility: [facility] Address: [address] [place] [address] Performed By: #### S LACT #### [facility] CLIA [id number] [address] [place] [address] Sodium [Moles/Vol] 138 mmol/L Normal 136-145 [facility] Comment on above: Order Comment: Speci men Type: BLOOD SPECIMEN Ordering Facility: [facility] Address: [address] [address] Performed By: #### S LACT #### [facility] CLIA [id number] [address] [place] [address] [place] Urea nitrogen [Mass/Vol] 19 mg/dL Normal 7-26 [facility] Comment on above: Order Comment: Speci men Type: BLOOD SPECIMEN Ordering Facility: [facility] Address: [address] [address] Performed By: #### S LACT #### [facility] CLIA [id number] [address] [place] [address] OF [facility] ED NOTEon 01-02-2025 ED NOTE HNO ID: [id number] Author: CHOLO PEREZ RN Service: Emergency Medicine Author Type: Registered Nurse Type: ED Notes Filed: 01/02/2025 10:32 Note Text: Hydralazine has not come from the pharmacy- med request sent. Says it was sent via tube station but not found in tube station [facility] ED NOTE HNO ID: [id number] Author: CHOLO PEREZ RN Service: Emergency Medicine Author Type: Registered Nurse Type: ED Notes Filed: 01/02/2025 10:31 Note Text: Boxed lunch given per request [facility] ED NOTE HNO ID: [id number] Author: RACHEL ADAN CT Service: ? Author Type: Clinical Senior Associate Type: ED Notes Filed: 01/02/2025 09:16 Note Text: Patient refused gown [facility] ED PROV NOTEon 01-02-2025 ED PROV NOTE HNO ID: [id number] Author: CHRISSY HAGER MD Service: AFTERNOON INTENSIVE [...] He feels like the testicle is playing hide and seek. Denies any known traumatic injury. He feels [...] 94.3 kg (208 lb) 1.778 m (5' 10) Physical Exam Constitutional: General: He is not [...] 8.89 (*) 1.45 - 7.50 k/uL Abs [place] 0.95 (*) <0.87 k/uL All other components [...] HANDP not suggestive (more content not included)... Normal [facility] ED Triage Noteon 01-02-2025 ED Triage Note HNO ID: [id number] Author: ENA YADAV MD Service: Emergency Medicine [...] completed as above. SIGNATURE: Ena Yadav MD [facility] Lipase SerPl-cCncon 01-03-20 25 Lipase [Catalytic activity/Vol] 55 U/L Normal - [facility] Comment on above: Order Comment: Speci men Type: BLOOD SPECIMEN Ordering Facility: [facility] Address: [address] [address] Performed By: #### S LACT #### [facility] CLIA [id number] [address] [place], [place] [address] [place] Magnesium SerPl-mCncon 01-02 Magnesium [Mass/Vol] 1.7 mg/dL Normal 1.6-2.6 [facility] Comment on above: Order Comment: Speci men Type: BLOOD SPECIMEN Ordering Facility: [facility] Address: [address] [place] [address] [place] [address] Performed By: #### S LACT #### [facility] CLIA [id number] [address] [place] [address] [place] US DOPPLER COMPLETEon 2024 [...] arterial and venous flow within both testes. Manual Control Auger Press Operator: LAUREANO Transcribe Date/Time: Jan 02 2025 5:34A Dictated by : YESSY SCANLON MD This examination was interpreted and the report reviewed and electronically signed by: YESSY SCANLON MD on Jan 02 2025 5:38AM EST [id number] Normal [facility] US SCROTUM AND CONTENTSon US SCROTUM [...] arterial and venous flow within both testes. Manual Control [employer]er Press Operator: LAUREANO Transcribe Date/Time: Jan 02 2025 5:34A Dictated by : YESSY SCANLON MD This examination was interpreted and the report reviewed and electronically signed by: YESSY SCANLON MD on Jan 02 2025 5:38AM EST [id number] Normal [facility] Urinalysis complete panel (U )on 01-02-2025 Bacteria LM.HPF (Urine sed) [#/Area] Rare Abnormal None Seen [facility] Comment on above: Order Comment: Speci men Type: BLOOD SPECIMEN Ordering Facility: [facility] Address: [address] [place] [address] Performed By: #### S LACT #### [facility] CLIA [id number] [facility] [place] [address] [place] Bilirubin Ql (U) Negative Normal Negative [facility] Comment on above: Order Comment: Speci men Type: BLOOD SPECIMEN Ordering Facility: [facility] Address: [address] [address] Performed By: #### S LACT #### [facility] CLIA [id number] [address] [place] [address] [place] Clarity (Unsp spec) Clear Normal Clear [facility] Comment on above: Order Comment: Speci men Type: BLOOD SPECIMEN Ordering Facility: [facility] Address: [address] [address] Performed By: #### S LACT #### [facility] CLIA [id number] [address] [place] [address] [place] Color (U) Yellow Normal Yellow [facility] Comment on above: Order Comment: Speci men Type: BLOOD SPECIMEN Ordering Facility: [facility] Address: [address] [address] Performed By: #### S LACT #### [facility] CLIA [id number] [address] [place] [address] [place] Epithelial cells LM.HPF (Urine sed) [#/Area] Few Normal [facility] Comment on above: Order Comment: Speci men Type: BLOOD SPECIMEN Ordering Facility: [facility] Address: [address] [address] Performed By: #### S LACT #### [facility] CLIA [id number] [address] [place] [address] [place] Glucose Test strip (U) [Mass/Vol] 3+ Abnormal Negative [facility] Comment on above: Order Comment: Speci men Type: BLOOD SPECIMEN Ordering Facility: [facility] Address: [address] [address] Performed By: #### S LACT #### [facility] CLIA [id number] [address] [place], [place] [address] [place] Hemoglobin Ql (U) Negative Normal Negative [facility] Comment on above: Order Comment: Speci men Type: BLOOD SPECIMEN Ordering Facility: [facility] Address: [address] [address] Performed By: #### S LACT #### [facility] CLIA [id number] [address] [place] [address] [place] Ketones Ql (U) Negative Normal Negative [facility] Comment on above: Order Comment: Speci men Type: BLOOD SPECIMEN Ordering Facility: [facility] Address: [address] [address] Performed By: #### S LACT #### [facility] CLIA [id number] [address] [place] [address] [place] Leukocyte esterase Test strip Ql (U) Negative Normal Negative [facility] Comment on above: Order Comment: Speci men Type: BLOOD SPECIMEN Ordering Facility: [facility] Address: [address] [address] Performed By: #### S LACT #### [facility] CLIA [id number] [address] [place] [address] [place] Nitrite Ql (U) Negative Normal Negative [facility] Comment on above: Order Comment: Speci men Type: BLOOD SPECIMEN Ordering Facility: [facility] Address: [address] [address] Performed By: #### S LACT #### [facility] CLIA [id number] [address] [place] [address] [place] pH (U) 6.0 [pH] Normal 5.0-8.0 [facility] Comment on above: Order Comment: Speci men Type: BLOOD SPECIMEN Ordering Facility: [facility] Address: [address] [address] Performed By: #### S LACT #### [facility] CLIA [id number] [address] [place] [address] [place] Protein (U) [Mass/Vol] 3+ Abnormal Negative [facility] Comment on above: Order Comment: Speci men Type: BLOOD SPECIMEN Ordering Facility: [facility] Address: [address] [address] Performed By: #### S LACT #### [facility] CLIA [id number] [address] [place] [address] [place] RBC LM.HPF (Urine sed) [#/Area] 0-3 /HPF Normal 0-3 /HPF [facility] Comment on above: Order Comment: Speci men Type: BLOOD SPECIMEN Ordering Facility: [facility] Address: [address] [address] Performed By: #### S LACT #### [facility] CLIA [id number] [address] [place] [address] [place] Specific gravity (U) [Rel density] 1.009 Normal 1.005-1.030 [facility] Comment on above: Order Comment: Speci men Type: BLOOD SPECIMEN Ordering Facility: [facility] Address: [address] [address] Performed By: #### S LACT #### [facility] CLIA [id number] [address] [place] [address] Urobilinogen Ql (U) Negative Normal Negative [facility] Comment on above: Order Comment: Speci men Type: BLOOD SPECIMEN Ordering Facility: [facility] Address: [address] [address] Performed By: #### S LACT #### [facility] [place] [id number] [address] [place] [address] WBC LM.HPF (Urine sed) [#/Area] 0-5 /HPF Normal 0-5 /HPF [facility] Comment on above: Order Comment: Speci men Type: BLOOD SPECIMEN Ordering Facility: [facility] Address: [address] [address] Performed By: #### S LACT #### [facility] CLIA [id number] [address] [place] [address] XR FOOT MINIMUM 3 VIEWS LEFT on [...] Sign Date: 12/01/2024 8:21:32 AM [facility]ing [facility] DERMPATH LAB- DERMATOPATHOLO GYon 09-23-2024 DERMPATH LAB- DERMATOPATHOLOGY Pathology report.total SEE COMMENT Dermatopathology Case: [id number] Authorizing Provider: Brent Wakefield MD Collected: 09/23/2024 1037 Ordering Location: [facility] Received: 09/23/2024 1607 Pathologist: Martha Lima MD [...] Diagnosis: Neoplasm of uncertain behavior of skin [id number] A Collection Comments: Differential Diagnosis: NUB Check [...] The specimen was grossed by [employer] [employer]. [facility] Lesion biopsyon 09-23-2024 Type [...] instructions given Dressing type: petrolatum and bandage [facility] Work Phone: [facility] Work Phone: Mohs surgeryon 09-23-2024 Consent obtained: ronit ruvalcaba [place] Protocol: Procedure explained and questions answered to [...] WITH epi Procedure Details: Case ID Number: [id number] Biopsy accession number: [id number] Date of biopsy: 05/21/2024 Pre-Op diagnosis: squamous [...] Yes Was reconstruction performed by the same [facility] surgeon? Yes Setting of reconstruction: outpatient office [...] care instructions given Dressing type: pressure dressing [facility] Work Phone: [facility] surgeryOrdered By: Henry Ortega on 09-23-2024 [facility] MRI SPINE THORACIC W/ + W/O [...] Ordering Provider: NELIDA SÁNCHEZ DERMPATH LAB- DERMATOPATHOLO SAULjacquelin 08-21-2024 DERMPATH LAB- DERMATOPATHOLOGY Pathology report.total SEE COMMENT Dermatopathology Case: [id number] Authorizing Provider: Brent Wakefield MD Collected: 08/21/2024 1412 Ordering Location: [facility] Received: 08/21/2024 1540 Pathologist: Lois Castanon MD [...] skin of right upper extremity including shoulder [id number] A Collection Comments: Differential Diagnosis: BCC ([id number]) Check Margins Yes/No?: Yes Comments: 4 mm [...] stitch designated by the surgeon as the proximal tip, referred to here as 12 o'clock for [...] The specimen was grossed by [employer]. [facility] No Panel Informationon 08-21 [facility] Work Phone: Skin excisionon 08-21-2024 Lesion [...] patient elected to proceed with exicision today. [facility] Work Phone: Skin repairon 08-21-2024 Complexity: [...] care instructions given Dressing type: pressure dressing [facility] Work Phone: Mohs surgeryon 08-19-2024 Consent obtained: ronit ruvalcaba [place] Protocol: Procedure explained and questions answered to [...] WITH epi Procedure Details: Case ID Number: [id number] Biopsy accession number: [id number] Date of biopsy: 08/31/2023 Pre-Op diagnosis: squamous [...] was given written post-operative wound care instructions. [facility] Work Phone: [facility] Work Phone: [facility] 07-21-2024 [facility] HNO ID: [id number] Author: JOSE LUIS VIVEROS RN Service: Wound/Ostomy Author Type: Registered Nurse Type: Allied Health Filed: 07/21/2024 15:03 Note Text: Summary: Wound Care Nurse Consult Wound Care Nurse Consult Patient: Cior Hawkins : 1965 Admit Date: 2024 REASON FOR CONSULT: left arm cellulitis ASSESSMENT: Patient states this was skin cancer removed by his dermatology Dr. Wakefield; He is not sure if he had a follow up appointment or not. Wound 07/18/241652 Surgical Closed Surgical Incision Arm Anterior;Left;Upper (Active) Properties Placement Date 07/18/24 Placement Time 1653 Location Arm Primary Wound Type Surgical Secondary Wound Type - Surgical Closed Surgical Incision Wound Location Orientation Anterior;Left;Upper Assessments 07/21/2024 3:01 PM Wound Image Site Assessment [place];Yellow (dry drainage over incision) Shruthi-Wound Assessment Erythematous;Warm;Dry Wound Length (cm) 0 cm Wound Width (cm) 0 cm Wound Surface Area (cm2) 0 cm2 Wound Depth (cm) 0 cm Wound Volume (cm3) 0 cm3 Drainage Description Serous Drainage Amount Scant Odor None Treatments Open to Air No associated orders. RECOMMENDATIONS: tool maker Communication Order; Dressing recommendations require a provider's order, please obtain and place as a Dressing Care order. Left Arm: clean with soap and water, pat dry. Apply xeroform, ABD, kerlix, change daily. Follow up with [employer] [facility] outpatient. Re-consult Wound Care if skin or wounds deteriorate further or if new problems arise. Normal [facility] CNCOon 07-21-2024 CNCO Letter Text Normal [facility] CNDSon 07-21-2024 CNDS HNO ID: [id number] Author: JORDYN URRUTIA MD Service: General Internal [...] 59-year-old male who presents today to the [facility] emergency department for further evaluation of [...] 200-200-20 mg/5 m (more content not included)... Normal [facility] NURSING PROGon 07-21-2024 NURSING PROG HNO ID: [id number] Author: DASIA JUAREZ, RN Service: Nursing Author Type: Registered Nurse Type: Nursing Progress Note Filed: 07/21/2024 05:03 Note Text: Pt declined Blood sugar check, long acting insulin glargine, and 0600am lab draws. Pt educated on importance. Pt declined. [facility] Basic metabolic 2000 panelon 07-20-2024 Anion gap [Moles/Vol] 11 mmol/L Normal -16 [facility] Comment on above: Order Comment: Speci men Type: VENOUS BLOOD SPECIMEN Ordering Facility: [facility] Address: [address] [place], [place] [address] Performed By: #### 2 4344-4 #### [facility] CLIA [id number] [address] [place] [place] [address] [place] Calcium [Mass/Vol] 9.0 mg/dL Normal 8.5-10.5 [facility] Comment on above: Order Comment: Speci men Type: VENOUS BLOOD SPECIMEN Ordering Facility: [facility] Address: [address] [address] Performed By: #### 2 4344-4 #### [facility] CLIA [id number] [address] [place] [address] [place] Chloride [Moles/Vol] 108 mmol/L High 98-107 [facility] Comment on above: Order Comment: Speci men Type: VENOUS BLOOD SPECIMEN Ordering Facility: [facility] Address: [address] [address] Performed By: #### 2 4344-4 #### [facility] CLIA [id number] [address] [place] [address] [place] CO2 [Moles/Vol] 21 mmol/L Normal 21-32 [facility] Comment on above: Order Comment: Speci men Type: VENOUS BLOOD SPECIMEN Ordering Facility: [facility] Address: [address] [address] Performed By: #### 2 4344-4 #### [facility] CLIA [id number] [address] [place] [address] [place] Creatinine [Mass/Vol] 1.97 mg/dL High 0.50-1.40 [facility] Comment on above: Order Comment: Speci men Type: VENOUS BLOOD SPECIMEN Ordering Facility: [facility] Address: [address] [address] Result Comment: Jeanette ents receiving either N-Acetylcysteine (NAC) or Metamizole prior to venipuncture, may have falsely depressed results. Performed By: #### 2 4344-4 #### [facility] CLIA [id number] [address] [place] [address] [place] Creatinine and Glomerular filtration rate.predicted panel (S/P/Bld) 38 mL/min/1.73m??? Low >=60 [facility] Comment on above: Order Comment: Wayne medrano Type: VENOUS BLOOD SPECIMEN Ordering Facility: [facility] Address: [address] [address] Result Comment: Shruti mated Glomerular Filtration Rate [...] GFR. Performed By: #### 2 4344-4 #### [facility] CLIA [id number] [address] [place] [address] [place] Glucose [Mass/Vol] 129 mg/dL High 70-100 [facility] Comment on above: Order Comment: Wayne medrano Type: VENOUS BLOOD SPECIMEN Ordering Facility: [facility] Address: [address] [address] Result Comment: The [place] [employer] (ADA) provides guidance for cutoff [...] Standards of Medical Care in Diabetes 2016, [place] [employer]. Diabetes Care. 2016.39(Suppl 1). Results may be falsely elevated after the administration of Sulfapyridine. Results may be falsely depressed after the administration of Sulfasalazine. Performed By: #### 2 4344-4 #### [facility] CLIA [id number] [address] [place] [address] [place] Potassium [Moles/Vol] 3.7 mmol/L Normal 3.5-5.1 [facility] Comment on above: Order Comment: Speci men Type: VENOUS BLOOD SPECIMEN Ordering Facility: [facility] Address: [address] [place] [address] Performed By: #### 2 4344-4 #### [facility] CLIA [id number] [address] [place] [address] [place] Sodium [Moles/Vol] 140 mmol/L Normal 136-145 [facility] Comment on above: Order Comment: Speci men Type: VENOUS BLOOD SPECIMEN Ordering Facility: [facility] Address: [address] [address] Performed By: #### 2 4344-4 #### [facility] CLIA [id number] [address] [place] [address] [place] Urea nitrogen [Mass/Vol] 22 mg/dL Normal 7-26 [facility] Comment on above: Order Comment: Speci men Type: VENOUS BLOOD SPECIMEN Ordering Facility: [facility] Address: [address] [address] Performed By: #### 2 4344-4 #### [facility] CLIA [id number] [address] [place] [address] [place] CBC W Auto Differential pane l (Bld)on 07-20-2024 Basophils (Bld) [#/Vol] 0.11 10*3/uL High <0.11 [facility] Comment on above: Order Comment: Speci men Type: VENOUS BLOOD SPECIMEN Ordering Facility: [facility] Address: [address] [address] Performed By: #### 2 4344-4 #### [facility] CLIA [id number] [address] [place] [address] [place] Basophils/100 WBC (Bld) 0.7 % Normal [facility] Comment on above: Order Comment: Speci men Type: VENOUS BLOOD SPECIMEN Ordering Facility: [facility] Address: [address] [address] Performed By: #### 2 4344-4 #### [facility] CLIA [id number] [address] [place] Differential cell count method Nom (Bld) Auto Normal [facility] Comment on above: Order Comment: Speci men Type: VENOUS BLOOD SPECIMEN Ordering Facility: [facility] Address: [address] [address] Performed By: #### 2 4344-4 #### [facility] CLIA [id number] [address] [place] [address] [place] Eosinophils (Bld) [#/Vol] 0.42 10*3/uL Normal <0.46 [facility] Comment on above: Order Comment: Speci men Type: VENOUS BLOOD SPECIMEN Ordering Facility: [facility] Address: [address] [address] Performed By: #### 2 4344-4 #### [facility] CLIA [id number] [address] [place] [address] [place] Eosinophils/100 WBC (Bld) 2.8 % Normal [facility] Comment on above: Order Comment: Speci men Type: VENOUS BLOOD SPECIMEN Ordering Facility: [facility] Address: [address] [address] Performed By: #### 2 4344-4 #### [facility] CLIA [id number] [address] [place] [address] [place] Erythrocyte distribution width (RBC) [Ratio] 14.0 % Normal 11.5-15.0 [facility] Comment on above: Order Comment: Speci men Type: VENOUS BLOOD SPECIMEN Ordering Facility: [facility] Address: [address] [address] Performed By: #### 2 4344-4 #### [facility] CLIA [id number] [address] [place] [address] [place] Hematocrit (Bld) [Volume fraction] 37.2 % Low 39.0-51.0 [facility] Comment on above: Order Comment: Speci men Type: VENOUS BLOOD SPECIMEN Ordering Facility: [facility] Address: [address] [address] Performed By: #### 2 4344-4 #### [facility] CLIA [id number] [address] [place] [address] [place] Hemoglobin (Bld) [Mass/Vol] 12.1 g/dL Low 13.0-17.0 [facility] Comment on above: Order Comment: Speci men Type: VENOUS BLOOD SPECIMEN Ordering Facility: [facility] Address: [address] [address] Performed By: #### 2 4344-4 #### [facility] CLIA [id number] [address] [place] [address] [place] Immature granulocytes (Bld) [#/Vol] 0.10 10*3/uL High <0.10 [facility] Comment on above: Order Comment: Speci men Type: VENOUS BLOOD SPECIMEN Ordering Facility: [facility] Address: [address] [address] Performed By: #### 2 4344-4 #### [facility] CLIA [id number] [address] [place] [address] [place] Immature granulocytes/100 WBC (Bld) 0.7 % Normal [facility] Comment on above: Order Comment: Speci men Type: VENOUS BLOOD SPECIMEN Ordering Facility: [facility] Address: [address] [address] Performed By: #### 2 4344-4 #### [facility] CLIA [id number] [address] [place] [address] [place] Lymphocytes (Bld) [#/Vol] 2.14 10*3/uL Normal 1.00-4.00 [facility] Comment on above: Order Comment: Speci men Type: VENOUS BLOOD SPECIMEN Ordering Facility: [facility] Address: [address] [address] Performed By: #### 2 4344-4 #### [facility] CLIA [id number] [address] [place] [address] [place] Lymphocytes/100 WBC (Bld) 14.3 % Normal [facility] Comment on above: Order Comment: Speci men Type: VENOUS BLOOD SPECIMEN Ordering Facility: [facility] Address: [address] [place] [address] Performed By: #### 2 4344-4 #### [facility] CLIA [id number] [address] [place] [address] MCH (RBC) [Entitic mass] 28.7 pg Normal 26.0-34.0 [facility] Comment on above: Order Comment: Speci men Type: VENOUS BLOOD SPECIMEN Ordering Facility: [facility] Address: [address] [address] Performed By: #### 2 4344-4 #### [facility] CLIA [id number] [address] [place] [address] [place] MCHC (RBC) [Mass/Vol] 32.5 g/dL Normal 30.5-36.0 [facility] Comment on above: Order Comment: Speci men Type: VENOUS BLOOD SPECIMEN Ordering Facility: [facility] Address: [address] [address] Performed By: #### 2 4344-4 #### [facility] CLIA [id number] [address] [place] [address] [place] MCV (RBC) [Entitic vol] 88.4 fL Normal 80.0-100.0 [facility] Comment on above: Order Comment: Speci men Type: VENOUS BLOOD SPECIMEN Ordering Facility: [facility] Address: [address] [address] Performed By: #### 2 4344-4 #### [facility] CLIA [id number] [address] [place] [address] [place] Monocytes (Bld) [#/Vol] 1.18 10*3/uL High <0.87 [facility] Comment on above: Order Comment: Speci men Type: VENOUS BLOOD SPECIMEN Ordering Facility: [facility] Address: [address] [place] [address] Performed By: #### 2 4344-4 #### [facility] CLIA [id number] [address] [place] [address] [place] Monocytes/100 WBC (Bld) 7.9 % Normal [facility] Comment on above: Order Comment: Speci men Type: VENOUS BLOOD SPECIMEN Ordering Facility: [facility] Address: [address] [place] [address] Performed By: #### 2 4344-4 #### [facility] CLIA [id number] [address] [place] [address] [place] Neutrophils (Bld) [#/Vol] 11.01 10*3/uL High 1.45-7.50 [facility] Comment on above: Order Comment: Speci men Type: VENOUS BLOOD SPECIMEN Ordering Facility: [facility] Address: [address] [address] Performed By: #### 2 4344-4 #### [facility] CLIA [id number] [address] [place] [address] [place] Neutrophils/100 WBC (Bld) 73.6 % Normal [facility] Comment on above: Order Comment: Speci men Type: VENOUS BLOOD SPECIMEN Ordering Facility: [facility] Address: [address] [place] [address] Performed By: #### 2 4344-4 #### [facility] CLIA [id number] [address] [place] [address] [place] Nucleated RBC (Bld) [#/Vol] 10*3/uL Normal <0.01 [facility] Comment on above: Order Comment: Speci men Type: VENOUS BLOOD SPECIMEN Ordering Facility: [facility] Address: [address] [place] [address] Performed By: #### 2 4344-4 #### [facility] CLIA [id number] [address] [place] [address] [place] Nucleated RBC/100 WBC (Bld) [Ratio] 0.0 /100 WBC Normal [facility] Comment on above: Order Comment: Speci men Type: VENOUS BLOOD SPECIMEN Ordering Facility: [facility] Address: [facility] [place] [address] Performed By: #### 2 4344-4 #### [facility] CLIA [id number] [address] [place] [address] [place] Platelet mean volume (Bld) [Entitic vol] 9.8 fL Normal 9.0-12.7 [facility] Comment on above: Order Comment: Speci men Type: VENOUS BLOOD SPECIMEN Ordering Facility: [facility] Address: [address] [address] Performed By: #### 2 4344-4 #### [facility] CLIA [id number] [address] [place] [address] [place] Platelets (Bld) [#/Vol] 454 10*3/uL High 150-400 [facility] Comment on above: Order Comment: Speci men Type: VENOUS BLOOD SPECIMEN Ordering Facility: [facility] Address: [address] [address] Performed By: #### 2 4344-4 #### [facility] CLIA [id number] [address] [place] [address] [place] RBC (Bld) [#/Vol] 4.21 10*6/uL Normal 4.20-6.00 [facility] Comment on above: Order Comment: Speci men Type: VENOUS BLOOD SPECIMEN Ordering Facility: [facility] Address: [address] [address] Performed By: #### 2 4344-4 #### [facility] CLIA [id number] [address] [place] [address] [place] WBC (Bld) [#/Vol] 14.96 10*3/uL High 3.70-11.00 [facility] Comment on above: Order Comment: Speci men Type: VENOUS BLOOD SPECIMEN Ordering Facility: [facility] Address: [address] [address] Performed By: #### 2 4344-4 #### [facility] CLIA [id number] [address] [place] [address] [place] Hepatic function 2000 panelo n 07-20-2024 Albumin [Mass/Vol] 2.8 g/dL Low 3.2-5.0 [facility] Comment on above: Order Comment: Speci men Type: VENOUS BLOOD SPECIMEN Ordering Facility: [facility] Address: [address] [address] Performed By: #### 2 4344-4 #### [facility] CLIA [id number] [address] [place] [address] [place] ALP [Catalytic activity/Vol] 100 U/L Normal 45-117 [facility] Comment on above: Order Comment: Speci men Type: VENOUS BLOOD SPECIMEN Ordering Facility: [facility] Address: [address] [address] Performed By: #### 2 4344-4 #### [facility] CLIA [id number] [address] [place] [address] [place] ALT [Catalytic activity/Vol] 120 U/L High 13-61 [facility] Comment on above: Order Comment: Speci men Type: VENOUS BLOOD SPECIMEN Ordering Facility: [facility] Address: [address] [address] Result Comment: Resu lts may be falsely depressed after the administration of Sulfasalazine and/or Sulfapyridine. Performed By: #### 2 4344-4 #### [facility] CLIA [id number] [address] [place] [address] [place] AST [Catalytic activity/Vol] 47 U/L High 8-34 [facility] Comment on above: Order Comment: Speci men Type: VENOUS BLOOD SPECIMEN Ordering Facility: [facility] Address: [address] [address] Result Comment: Resu lts may be falsely depressed after the administration of Sulfasalazine and/or Sulfapyridine. Performed By: #### 2 4344-4 #### [facility] CLIA [id number] [address] [place] [address] [place] Bilirubin [Mass/Vol] 0.4 mg/dL Normal 0.2-1.0 [facility] Comment on above: Order Comment: Speci men Type: VENOUS BLOOD SPECIMEN Ordering Facility: [facility] Address: [address] [address] Performed By: #### 2 4344-4 #### [facility] CLIA [id number] [address] [place] [address] [place] Bilirubin.conjugated [Mass/Vol] 0.2 mg/dL Normal 0.0-0.4 [facility] Comment on above: Order Comment: Speci men Type: VENOUS BLOOD SPECIMEN Ordering Facility: [facility] Address: [address] [address] Performed By: #### 2 4344-4 #### [facility] CLIA [id number] [address] [place] [address] [place] Protein [Mass/Vol] 6.2 g/dL Normal 6.0-8.5 [facility] Comment on above: Order Comment: Speci men Type: VENOUS BLOOD SPECIMEN Ordering Facility: [facility] Address: [address] [address] Performed By: #### 2 4344-4 #### [facility] CLIA [id number] [address] [place] [address] [place] Bilirub Conj SerPl-mCncon Bilirubin.conjugated [Mass/Vol] 0.2 mg/dL Normal 0.0-0.4 [facility] Comment on above: Order Comment: Speci men Type: BLOOD SPECIMENOrdering Facility: [facility] Address: [address] [address] Performed By: #### 1 5152-2, 01282-5, 37220-2 ####[facility] [id number] [address] [place] CBC W Auto Differential pane l (Bld)on 07-19-2024 Basophils (Bld) [#/Vol] 0.09 10*3/uL Normal <0.11 [facility] Comment on above: Order Comment: Speci men Type: BLOOD SPECIMENOrdering Facility: [facility] Address: [address] [address] Performed By: #### 5 7021-8 ####[facility] [id number] [address] [place] Basophils/100 WBC (Bld) 0.4 % Normal [facility] Comment on above: Order Comment: Speci men Type: BLOOD SPECIMENOrdering Facility: [facility] Address: [address] [address] Performed By: #### 5 7021-8 ####[facility]ORY[facility]IA [id number] [place] [address] [facility] [place] Differential cell count method Nom (Bld) Auto Normal [facility] Comment on above: Order Comment: Speci men Type: BLOOD SPECIMENOrdering Facility: [facility] Address: [address] [address] Performed By: #### 5 7021-8 ####[facility] [id number] [place] [address] [place] Eosinophils (Bld) [#/Vol] 0.29 10*3/uL Normal <0.46 [facility] Comment on above: Order Comment: Speci men Type: BLOOD SPECIMENOrdering Facility: [facility] Address: [address] [address] Performed By: #### 5 7021-8 ####[facility] [id number] [address] OF [place] Eosinophils/100 WBC (Bld) 1.4 % Normal [facility] Comment on above: Order Comment: Speci men Type: BLOOD SPECIMENOrdering Facility: [facility] Address: [address] [address] Performed By: #### 5 7021-8 ####[facility]IA [id number] [address] [place] Erythrocyte distribution width (RBC) [Ratio] 13.7 % Normal 11.5-15.0 [facility] Comment on above: Order Comment: Speci men Type: BLOOD SPECIMENOrdering Facility: [facility] Address: [address] [address] Performed By: #### 5 7021-8 ####[facility]ORY[facility]IA [id number] [place] [address] [place] Hematocrit (Bld) [Volume fraction] 39.2 % Normal 39.0-51.0 [facility] Comment on above: Order Comment: Speci men Type: BLOOD SPECIMENOrdering Facility: [facility] Address: [address] [address] Performed By: #### 5 7021-8 ####[facility]ORY[facility]IA [id number] [place] [address] [place] Hemoglobin (Bld) [Mass/Vol] 12.9 g/dL Low 13.0-17.0 [facility] Comment on above: Order Comment: Speci men Type: BLOOD SPECIMENOrdering Facility: [facility] Address: [address] [address] Performed By: #### 5 7021-8 ####[facility]ORY[facility]IA [id number] [place] [address] [place] Immature granulocytes (Bld) [#/Vol] 0.12 10*3/uL High <0.10 [facility] Comment on above: Order Comment: Speci men Type: BLOOD SPECIMENOrdering Facility: [facility] Address: [address] [address] Performed By: #### 5 7021-8 ####[facility]ORYCLIA [id number] [place] [address] [place] Immature granulocytes/100 WBC (Bld) 0.6 % Normal [facility] Comment on above: Order Comment: Speci men Type: BLOOD SPECIMENOrdering Facility: [facility] Address: [address] [address] Performed By: #### 5 7021-8 ####[facility]ORYCLIA [id number] [place] [address] [place] Lymphocytes (Bld) [#/Vol] 2.21 10*3/uL Normal 1.00-4.00 [facility] Comment on above: Order Comment: Speci men Type: BLOOD SPECIMENOrdering Facility: [facility] Address: [address] [place] [address] Performed By: #### 5 7021-8 ####[facility]ORYCLIA [id number] [address] [place] Lymphocytes/100 WBC (Bld) 10.6 % Normal [facility] Comment on above: Order Comment: Speci men Type: BLOOD SPECIMENOrdering Facility: [facility] Address: [address] [address] Performed By: #### 5 7021-8 ####[facility]ORYCLIA [id number] [place] [address] [place] MCH (RBC) [Entitic mass] 28.8 pg Normal 26.0-34.0 [facility] Comment on above: Order Comment: Speci men Type: BLOOD SPECIMENOrdering Facility: [facility] Address: [address] [place] [address] Performed By: #### 5 7021-8 ####[facility]ORYCLIA [id number] [address] [place] MCHC (RBC) [Mass/Vol] 32.9 g/dL Normal 30.5-36.0 [facility] Comment on above: Order Comment: Speci men Type: BLOOD SPECIMENOrdering Facility: [facility] Address: [address] [place] [address] Performed By: #### 5 7021-8 ####[facility]ORYCLIA [id number] [address] [place] MCV (RBC) [Entitic vol] 87.5 fL Normal 80.0-100.0 [facility] Comment on above: Order Comment: Speci men Type: BLOOD SPECIMENOrdering Facility: [facility] Address: [address] [place] [place] [address] Performed By: #### 5 7021-8 ####[facility]ATORYCLIA [id number] [place] [address] [place] Monocytes (Bld) [#/Vol] 1.49 10*3/uL High <0.87 [facility] Comment on above: Order Comment: Speci men Type: BLOOD SPECIMENOrdering Facility: [facility] Address: [address] [place] [address] Performed By: #### 5 7021-8 ####[facility]ATORYCLIA [id number] [place] [address] [place] Monocytes/100 WBC (Bld) 7.2 % Normal [facility] Comment on above: Order Comment: Speci men Type: BLOOD SPECIMENOrdering Facility: [facility] Address: [address] [place] [address] Performed By: #### 5 7021-8 ####[facility]ATORYCLIA [id number] [place] [address] [place] Neutrophils (Bld) [#/Vol] 16.62 10*3/uL High 1.45-7.50 [facility] Comment on above: Order Comment: Speci men Type: BLOOD SPECIMENOrdering Facility: [facility] Address: [address] [address] Performed By: #### 5 7021-8 ####[facility]ATORYCLIA [id number] [place] [address] [place] Neutrophils/100 WBC (Bld) 79.8 % Normal [facility] Comment on above: Order Comment: Speci men Type: BLOOD SPECIMENOrdering Facility: [facility] Address: [address] [address] Performed By: #### 5 7021-8 ####[facility]ATORYCLIA [id number] [place] [address] [place] Nucleated RBC (Bld) [#/Vol] 10*3/uL Normal <0.01 [facility] Comment on above: Order Comment: Speci men Type: BLOOD SPECIMENOrdering Facility: [facility] Address: [address] [address] Performed By: #### 5 7021-8 ####[facility]ATORYCLIA [id number] [place] [address] [place] Nucleated RBC/100 WBC (Bld) [Ratio] 0.0 /100 WBC Normal [facility] Comment on above: Order Comment: Speci men Type: BLOOD SPECIMENOrdering Facility: [facility] Address: [address] [address] Performed By: #### 5 7021-8 ####[facility]ORYCLIA [id number] [place] [address] [place] Platelet mean volume (Bld) [Entitic vol] 10.3 fL Normal 9.0-12.7 [facility] Comment on above: Order Comment: Speci men Type: BLOOD SPECIMENOrdering Facility: [facility] Address: [address] [address] Performed By: #### 5 7021-8 ####[facility]ORYCLIA [id number] [place] [address] [place] Platelets (Bld) [#/Vol] 489 10*3/uL High 150-400 [facility] Comment on above: Order Comment: Speci men Type: BLOOD SPECIMENOrdering Facility: [facility] Address: [address] [address] Performed By: #### 5 7021-8 ####[facility]ORYCLIA [id number] [place] [address] [place] RBC (Bld) [#/Vol] 4.48 10*6/uL Normal 4.20-6.00 [facility] Comment on above: Order Comment: Speci men Type: BLOOD SPECIMENOrdering Facility: [facility] Address: [address] [place] [address] Performed By: #### 5 7021-8 ####[facility]ATORYCLIA [id number] [place] [address] [place] WBC (Bld) [#/Vol] 20.82 10*3/uL High 3.70-11.00 [facility] Comment on above: Order Comment: Speci men Type: BLOOD SPECIMENOrdering Facility: [facility] Address: [address] [place], [place] [address] Performed By: #### 5 7021-8 ####[facility]ATORYCLIA [id number] [place] [address] [place] Comprehensive metabolic 2000 panelon 07-19-2024 Albumin [Mass/Vol] 3.0 g/dL Low 3.2-5.0 [facility] Comment on above: Order Comment: Speci men Type: BLOOD SPECIMENOrdering Facility: [facility] Address: [address] [address] Performed By: #### 1 5152-2, 80380-0, ####[facility]ATORYCLIA [id number] [place] [id number] [place] ALP [Catalytic activity/Vol] 111 U/L Normal 45-117 [facility] Comment on above: Order Comment: Speci men Type: BLOOD SPECIMENOrdering Facility: [facility] Address: [address] [address] Performed By: #### 1 5152-2, 19475-3, ####[facility]ATORYCLIA [id number] [place] [id number] [place] ALT [Catalytic activity/Vol] 157 U/L High 13-61 [facility] Comment on above: Order Comment: Speci men Type: BLOOD SPECIMENOrdering Facility: [facility] Address: [address] [address] Result Comment: Resu lts may be falsely depressed after the administration of Sulfasalazine and/or Sulfapyridine. Performed By: #### 1 5152-2, 72513-9, ####[facility]ATORYCLIA [id number] [place] [address] [place] Anion gap [Moles/Vol] 11 mmol/L Normal 5-16 [facility] Comment on above: Order Comment: Speci men Type: BLOOD SPECIMENOrdering Facility: [facility] Address: [address] [address] Performed By: #### 1 5152-2, 97782-3, ####[facility]ORYCLIA [id number] [place] [id number] [place] AST [Catalytic activity/Vol] 55 U/L High 8-34 [facility] Comment on above: Order Comment: Speci men Type: BLOOD SPECIMENOrdering Facility: [facility] Address: [address] [address] Result Comment: Resu lts may be falsely depressed after the administration of Sulfasalazine and/or Sulfapyridine. Performed By: #### 1 5152-2, 95500-5, ####[facility]ATORYCLIA [id number] [place] [id number] [place] Bilirubin [Mass/Vol] 0.4 mg/dL Normal 0.2-1.0 [facility] Comment on above: Order Comment: Speci men Type: BLOOD SPECIMENOrdering Facility: [facility] Address: [address] [address] Performed By: #### 1 5152-2, 04033-6, ####[facility]ATORYCLIA [id number] [place] [id number] [place] Calcium [Mass/Vol] 9.0 mg/dL Normal 8.5-10.5 [facility] Comment on above: Order Comment: Speci men Type: BLOOD SPECIMENOrdering Facility: [facility] Address: [address] [address] Performed By: #### 1 5152-2, 21031-0, ####[facility]ATORYCLIA [id number] [place] [address] [place] Chloride [Moles/Vol] 105 mmol/L Normal 98-107 [facility] Comment on above: Order Comment: Speci men Type: BLOOD SPECIMENOrdering Facility: [facility] Address: [address] [address] Performed By: #### 1 5152-2, 18082-2, ####[facility]ATORYCLIA [id number] [place] [id number] [place] CO2 [Moles/Vol] 21 mmol/L Normal 21-32 [facility] Comment on above: Order Comment: Speci men Type: BLOOD SPECIMENOrdering Facility: [facility] Address: [address] [address] Performed By: #### 1 5152-2, 87086-2, ####[facility]ATORYCLIA [id number] [place] [id number] [place] Creatinine [Mass/Vol] 1.72 mg/dL High 0.50-1.40 [facility] Comment on above: Order Comment: Speci men Type: BLOOD SPECIMENOrdering Facility: [facility] Address: [address] [address] Result Comment: Jeanette ents receiving either N-Acetylcysteine (NAC) or Metamizole prior to venipuncture, may have falsely depressed results. Performed By: #### 1 5152-2, 41907-9, ####[facility]ATORYCLIA [id number] [place] [id number] [place] Creatinine and Glomerular filtration rate.predicted panel (S/P/Bld) 45 mL/min/1.73m??? Low >=60 [facility] Comment on above: Order Comment: Speci men Type: BLOOD SPECIMENOrdering Facility: [facility] Address: [address] [address] Result Comment: Shruti mated Glomerular Filtration Rate [...] actual GFR. Performed By: #### 1 5152-2, 69008-5, ####[facility]ATORYCLIA [id number] [place] [address] [place] Glucose [Mass/Vol] 163 mg/dL High 70-100 [facility] Comment on above: Order Comment: Wayne medrano Type: BLOOD SPECIMENOrdering Facility: [facility] Address: [address] [place] [id number] Result Comment: The [place] [employer] (ADA) provides guidance for cutoff [...] Standards of Medical Care in Diabetes 2016, [place] [employer]. Diabetes Care. 2016.39(Suppl 1). Results may be falsely elevated after the administration of Sulfapyridine. Results may be falsely depressed after the administration of Sulfasalazine. Performed By: #### 1 5152-2, 25988-4, ####[facility]ATORYCLIA [id number] [place] [address] [place] Potassium [Moles/Vol] 4.0 mmol/L Normal 3.5-5.1 [facility] Comment on above: Order Comment: Wayne medrano Type: BLOOD SPECIMENOrdering Facility: [facility] Address: [address] [place] [address] Performed By: #### 1 5152-2, 18793-2, ####[facility]ATORYCLIA [id number] [place] [id number] [place] Protein [Mass/Vol] 6.6 g/dL Normal 6.0-8.5 [facility] Comment on above: Order Comment: Wayne medrano Type: BLOOD SPECIMENOrdering Facility: [facility] Address: [address] [place] [address] Performed By: #### 1 5152-2, 45482-1, ####[facility]ATORYCLIA [id number] [place] [id number] [place] Sodium [Moles/Vol] 137 mmol/L Normal 136-145 [facility] Comment on above: Order Comment: Speci men Type: BLOOD SPECIMENOrdering Facility: [facility] Address: [address] [address] Performed By: #### 1 5152-2, 69008-0, 10287-8 ####[facility]ATORYCLIA [id number] [place] [id number] [place] Urea nitrogen [Mass/Vol] 19 mg/dL Normal 7- [facility] Comment on above: Order Comment: Speci men Type: BLOOD SPECIMENOrdering Facility: [facility] Address: [address] [address] Performed By: #### 1 5152-2, 48725-9, 39516-9 ####[facility]ORYCLIA [id number] [place] [id number] [place] Magnesium SerPl-mCncon 07-19 Magnesium [Mass/Vol] 2.0 mg/dL Normal 1.6-2.6 [facility] Comment on above: Order Comment: Speci men Type: BLOOD SPECIMENOrdering Facility: [facility] Address: [address] [address] Performed By: #### 1 5152-2, 81856-2, 34591-0 ####[facility]ATORYCLIA [id number] [place] [id number] [place] NURSING PROGon 07-19-2024 NURSING PROG HNO ID: [id number] Author: ROCCO ZAMBRANO, STEVEN Service: Nursing Author Type: Registered Nurse Type: Nursing Progress Note Filed: 07/19/2024 23:26 Note Text: Patient refusing IV fluids and demanding to be disconnected from IV pump. Binh Colindres APRN notified. Normal [facility] B-HYDROXYBUTYRATEon 07-19-19 25 Beta hydroxybutyrate [Moles/Vol] 0.16 mmol/L Normal 0.02-0.27 [facility] Comment on above: Order Comment: Speci men Type: BLOOD SPECIMEN [facility] Address: [address] [facility] [place] [address] Result Comment: Bloo d ketone levels will vary depending on several factors (for example, food intake, alcohol intake and conditions such as ketoacidosis). Patients should be fasting 12 hours prior to collection. Patient samples with high levels of M-Protein (i.e. Gammopathy) may affect the accuracy of this assay. Performed By: #### 2 4323-8, 36248-6, [place], B #### [facility] CLIA [id number] [address] [place] [address] [place] Bacteria Bld Culton 07-19-19 25 Bacteria identified Cx Nom (Bld) ORGANISM ID: 1 Staphylococcus epidermidis Probable contaminant. Susceptibility testing will not be performed. Call lab within 72 hours to initiate workup if clinically indicated. GRAM STAIN: Gram positive cocci in clusters Abnormal [facility] Comment on above: Performed By: #### 2 4344-4 #### [facility] CLIA [id number] [address] [place] [address] [place] Bacteria identified Cx Nom (Bld) CULTURE, BLOOD: No growth 5 days Normal [facility] Comment on above: Performed By: #### 5 7021-8 #### [facility] CLIA [id number] [address] [place] [address] [place] CBC W Auto Differential pane l (Bld)on 2024 Basophils (Bld) [#/Vol] 0.05 10*3/uL Normal <0.11 [facility] Comment on above: Order Comment: Speci men Type: BLOOD SPECIMEN [facility] Address: [address] [place] [address] Performed By: #### 5 7021-8 #### [facility] CLIA [id number] [address] [place] [address] [place] Basophils/100 WBC (Bld) 0.3 % Normal [facility] Comment on above: Order Comment: Speci men Type: BLOOD SPECIMEN [facility] Address: [address] [place] [address] Performed By: #### 5 7021-8 #### [facility] CLIA [id number] [address] [place] [address] [place] Differential cell count method Nom (Bld) Auto Normal [facility] Comment on above: Order Comment: Speci men Type: BLOOD SPECIMEN [facility] Address: [address] [place] [address] Performed By: #### 5 7021-8 #### [facility] CLIA [id number] [address] [place] [address] [place] Eosinophils (Bld) [#/Vol] 10*3/uL Normal <0.46 [facility] Comment on above: Order Comment: Speci men Type: BLOOD SPECIMEN [facility] Address: [address] [address] Performed By: #### 5 7021-8 #### [facility] CLIA [id number] [address] [place] [address] [place] Eosinophils/100 WBC (Bld) 0.1 % Normal [facility] Comment on above: Order Comment: Speci men Type: BLOOD SPECIMEN [facility] Address: [address] [address] Performed By: #### 5 7021-8 #### [facility] CLIA [id number] [address] [place] [address] [place] Erythrocyte distribution width (RBC) [Ratio] 13.5 % Normal 11.5-15.0 [facility] Comment on above: Order Comment: Speci men Type: BLOOD SPECIMEN [facility] Address: [address] [address] Performed By: #### 5 7021-8 #### [facility] CLIA [id number] [address] [place] [address] [place] Hematocrit (Bld) [Volume fraction] 38.7 % Low 39.0-51.0 [facility] Comment on above: Order Comment: Speci men Type: BLOOD SPECIMEN [facility] Address: [address] [place] [address] Performed By: #### 5 7021-8 #### [facility] CLIA [id number] [address] [place] [address] [place] Hemoglobin (Bld) [Mass/Vol] 12.9 g/dL Low 13.0-17.0 [facility] Comment on above: Order Comment: Speci men Type: BLOOD SPECIMEN [facility] Address: [address] [address] Performed By: #### 5 7021-8 #### [facility] CLIA [id number] [address] [place] [address] [place] Immature granulocytes (Bld) [#/Vol] 0.14 10*3/uL High <0.10 [facility] Comment on above: Order Comment: Speci men Type: BLOOD SPECIMEN [facility] Address: [address] [place] [address] Performed By: #### 5 7021-8 #### [facility] CLIA [id number] [address] [place] [address] [place] Immature granulocytes/100 WBC (Bld) 0.7 % Normal [facility] Comment on above: Order Comment: Speci men Type: BLOOD SPECIMEN [facility] Address: [address] [place] [address] Performed By: #### 5 7021-8 #### [facility] CLIA [id number] [address] [place] [address] [place] Lymphocytes (Bld) [#/Vol] 0.85 10*3/uL Low 1.00-4.00 [facility] Comment on above: Order Comment: Speci men Type: BLOOD SPECIMEN [facility] Address: [address] [address] Performed By: #### 5 7021-8 #### [facility] CLIA [id number] [address] [place] [address] [place] Lymphocytes/100 WBC (Bld) 4.3 % Normal [facility] Comment on above: Order Comment: Speci men Type: BLOOD SPECIMEN [facility] Address: [address] [address] Performed By: #### 5 7021-8 #### [facility] CLIA [id number] [address] [place] [address] [place] MCH (RBC) [Entitic mass] 28.7 pg Normal 26.0-34.0 [facility] Comment on above: Order Comment: Speci men Type: BLOOD SPECIMEN [facility] Address: [address] [address] Performed By: #### 5 7021-8 #### [facility] CLIA [id number] [address] [place] [address] [place] MCHC (RBC) [Mass/Vol] 33.3 g/dL Normal 30.5-36.0 [facility] Comment on above: Order Comment: Speci men Type: BLOOD SPECIMEN [facility] Address: [address] [address] Performed By: #### 5 7021-8 #### [facility] CLIA [id number] [address] [place] [address] [place] MCV (RBC) [Entitic vol] 86.2 fL Normal 80.0-100.0 [facility] Comment on above: Order Comment: Speci men Type: BLOOD SPECIMEN [facility] Address: [address] [place] [address] Performed By: #### 5 7021-8 #### [facility] CLIA [id number] [address] [place] [address] [place] Monocytes (Bld) [#/Vol] 0.44 10*3/uL Normal <0.87 [facility] Comment on above: Order Comment: Speci men Type: BLOOD SPECIMEN [facility] Address: [address] [address] Performed By: #### 5 7021-8 #### [facility] CLIA [id number] [address] [place] [address] [place] Monocytes/100 WBC (Bld) 2.2 % Normal [facility] Comment on above: Order Comment: Speci men Type: BLOOD SPECIMEN [facility] Address: [address] [address] Performed By: #### 5 7021-8 #### [facility] CLIA [id number] [address] [place] [address] [place] Neutrophils (Bld) [#/Vol] 18.10 10*3/uL High 1.45-7.50 [facility] Comment on above: Order Comment: Speci men Type: BLOOD SPECIMEN [facility] Address: [address] [address] Performed By: #### 5 7021-8 #### [facility] CLIA [id number] [address] [place] [address] [place] Neutrophils/100 WBC (Bld) 92.4 % Normal [facility] Comment on above: Order Comment: Speci men Type: BLOOD SPECIMEN [facility] Address: [address] [address] Performed By: #### 5 7021-8 #### [facility] CLIA [id number] [address] [place] [address] [place] Nucleated RBC (Bld) [#/Vol] 10*3/uL Normal <0.01 [facility] Comment on above: Order Comment: Speci men Type: BLOOD SPECIMEN [facility] Address: [address] [address] Performed By: #### 5 7021-8 #### [facility] CLIA [id number] [address] [place] [address] [place] Nucleated RBC/100 WBC (Bld) [Ratio] 0.0 /100 WBC Normal [facility] Comment on above: Order Comment: Speci men Type: BLOOD SPECIMEN [facility] Address: [address] [place] [id number] Performed By: #### 5 7021-8 #### [facility] CLIA [id number] [address] [place], [place] [address] [place] Platelet mean volume (Bld) [Entitic vol] 10.4 fL Normal 9.0-12.7 [facility] Comment on above: Order Comment: Speci men Type: BLOOD SPECIMEN [facility] Address: [address] [place], [place] [address] Performed By: #### 5 7021-8 #### [facility] CLIA [id number] [address] [place] [address] [place] Platelets (Bld) [#/Vol] 460 10*3/uL High 150-400 [facility] Comment on above: Order Comment: Speci men Type: BLOOD SPECIMEN [facility] Address: [address] [address] Performed By: #### 5 7021-8 #### [facility] CLIA [id number] [address] [place] [address] [place] RBC (Bld) [#/Vol] 4.49 10*6/uL Normal 4.20-6.00 [facility] Comment on above: Order Comment: Speci men Type: BLOOD SPECIMEN [facility] Address: [address] [place], [place] [address] Performed By: #### 5 7021-8 #### [facility] CLIA [id number] [address] [place] [address] [place] WBC (Bld) [#/Vol] 19.59 10*3/uL High 3.70-11.00 [facility] Comment on above: Order Comment: Speci men Type: BLOOD SPECIMEN [facility] Address: [address] [address] Performed By: #### 5 7021-8 #### [facility] CLIA [id number] [address] [facility] CONSULTon 2024 CONSULT HNO ID: [id number] Author: RAEANN SYKES MD Service: General Surgery Author Type: Physician Type: Consults Filed: 2024 19:09 Note Text: SURGICAL SERVICES CONSULT NOTE SERVICE DATE: 2024 SERVICE TIME: 1906 PRIMARY CARE PHYSICIAN: Ciro Schultz MD Consultation [...] bowel movements. Patient denies he has a hernia does not know who told you that. FUNCTIONAL STATUS: Partially dependent No past medical [...] chloride 0.65 % nasal spray, Use 1 [place] in the nose every 6 hours as [...] , T (more content not included)... Normal [facility] CT ABD/PEL W IVCONon 025 CT ABD/PEL W IVCON * * *Final Report* * * DATE OF EXAM: 2024 1:47PM [facility] 0530 - CT ABD/PEL W IVCON [...] be communicated with the ordering provider via [employer] staff message or phone message by [employer] within 2 business days of report finalization. --END OF FINDING-- Manual Control Auger Press Operator: LAUREANO Transcribe Date/Time: 2024 2:39P Dictated by : LUIZ LE MD This examination was interpreted and the report reviewed and electronically signed by: LUIZ LE MD on 2024 2:52PM EST [id number] [id number] Invalid Interpretation Code [facility] Comprehensive metabolic 2000 panelon 2024 Albumin [Mass/Vol] 3.4 g/dL Normal 3.2-5.0 [facility] Comment on above: Order Comment: Speci men Type: BLOOD SPECIMEN [facility] Address: [address] [address] Performed By: #### 2 4323-8, , MARISA RUBALCAVA #### [facility] CLIA [id number] [address] [place] [address] [place] ALP [Catalytic activity/Vol] 127 U/L High 45-117 [facility] Comment on above: Order Comment: Speci men Type: BLOOD SPECIMEN Ordering Facility: [facility] Address: [address] [address] Performed By: #### 2 4323-8, , KHADAR Pamela #### [facility] CLIA [id number] [address] [place] [address] [place] ALT [Catalytic activity/Vol] 213 U/L High 13-61 [facility] Comment on above: Order Comment: Speci men Type: BLOOD SPECIMEN Ordering Facility: [facility] Address: [address] [address] Result Comment: Resu lts may be falsely depressed after the administration of Sulfasalazine and/or Sulfapyridine. Performed By: #### 2 4323-8, , HSCAROLYN Pamela #### [facility] CLIA [id number] [address] [place], [place] [address] [place] Anion gap [Moles/Vol] 10 mmol/L Normal 5-16 [facility] Comment on above: Order Comment: Speci men Type: BLOOD SPECIMEN Ordering Facility: [facility] Address: [address] [place], [place] [address] Performed By: #### 2 4323-8, , HSCAROLYN Pamela #### [facility] CLIA [id number] [address] [place], [place] [address] [place] AST [Catalytic activity/Vol] 70 U/L High 8-34 [facility] Comment on above: Order Comment: Speci men Type: BLOOD SPECIMEN Ordering Facility: [facility] Address: [address] [place] [address] [place] [address] Result Comment: Resu lts may be falsely depressed after the administration of Sulfasalazine and/or Sulfapyridine. Performed By: #### 2 4323-8, , HSCAROLYN, B #### [facility] CLIA [id number] [address] [place], [place] [address] [place] Bilirubin [Mass/Vol] 0.5 mg/dL Normal 0.2-1.0 [facility] Comment on above: Order Comment: Speci men Type: BLOOD SPECIMEN Ordering Facility: [facility] Address: [address] [address] Performed By: #### 2 4323-8, , HSCAROLYN, MARISA #### [facility] CLIA [id number] [address] [place] [address] [place] Calcium [Mass/Vol] 9.3 mg/dL Normal 8.5-10.5 [facility] Comment on above: Order Comment: Speci men Type: BLOOD SPECIMEN Ordering Facility: [facility] Address: [address] [facility] [place] [address] Performed By: #### 2 4323-8, , HSCAROLYN, CAROLB #### [facility] CLIA [id number] [address] [place] [address] [place] Chloride [Moles/Vol] 97 mmol/L Low 98-107 [facility] Comment on above: Order Comment: Speci men Type: BLOOD SPECIMEN Ordering Facility: [facility] Address: [address] [facility] [place] [address] Performed By: #### 2 4323-8, , HSCAROLYN, B #### [facility] CLIA [id number] [address] [place], [place] [address] [place] CO2 [Moles/Vol] 23 mmol/L Normal 21-32 [facility] Comment on above: Order Comment: Speci men Type: BLOOD SPECIMEN Ordering Facility: [facility] Address: [address] [place] [address] Performed By: #### 2 4323-8, 20897-6, MARISA RUBALCAVA #### [facility] CLIA [id number] [address] [place], [place] [address] [place] Creatinine [Mass/Vol] 1.65 mg/dL High 0.50-1.40 [facility] Comment on above: Order Comment: Wayne medrano Type: BLOOD SPECIMEN Ordering Facility: [facility] Address: [address] [place] [address] Result Comment: Jeanette ents receiving either N-Acetylcysteine (NAC) or Metamizole prior to venipuncture, may have falsely depressed results. Performed By: #### 2 4323-8, 02454-4, MARISA RUBALCAVA #### [facility] CLIA [id number] [address] [place] [address] Creatinine and Glomerular filtration rate.predicted panel (S/P/Bld) 47 mL/min/1.73m??? Low >=60 [facility] Comment on above: Order Comment: Wayne medrano Type: BLOOD SPECIMEN Ordering Facility: [facility] Address: [address] [place] [address] Result Comment: Shruti mated Glomerular Filtration Rate [...] actual GFR. Performed By: #### 2 4323-8, 89641-7, MARISA RUBALCAVA #### [facility] CLIA [id number] [address] [place], [place] [address] [place] Glucose [Mass/Vol] 352 mg/dL High 70-100 [facility] Comment on above: Order Comment: Wayne medrano Type: BLOOD SPECIMEN Ordering Facility: [facility] Address: [address] [address] Result Comment: The [place] Diabetes Association (ADA) provides guidance for cutoff [...] Standards of Medical Care in Diabetes 2016, [place] [employer]. Diabetes Care. 2016.39(Suppl 1). Results may be falsely elevated after the administration of Sulfapyridine. Results may be falsely depressed after the administration of Sulfasalazine. Performed By: #### 2 4323-8, 28836-7, MARISA RUBALCAVA #### [facility] CLIA [id number] [address] [place] [address] [place] Potassium [Moles/Vol] 4.1 mmol/L Normal 3.5-5.1 [facility] Comment on above: Order Comment: Wayne medrano Type: BLOOD SPECIMEN Ordering Facility: [facility] Address: [address] [place] [address] Performed By: #### 2 4323-8, , MARISA RUBALCAVA #### [facility] CLIA [id number] [address] [place] [address] [place] Protein [Mass/Vol] 7.6 g/dL Normal 6.0-8.5 [facility] Comment on above: Order Comment: Speci men Type: BLOOD SPECIMEN Ordering Facility: [facility] Address: [address] [place] [address] Performed By: #### 2 4323-8, , KHADAR Pamela #### [facility] CLIA [id number] [address] [place], [place] [address] [place] Sodium [Moles/Vol] 130 mmol/L Low 136-145 [facility] Comment on above: Order Comment: Rupai men Type: BLOOD SPECIMEN Ordering Facility: [facility] Address: [address] [place] [address] Performed By: #### 2 4323-8, 92595-3, HSTRHIEU, B #### [facility] CLIA [id number] [address] [place], [place] [address] [place] Urea nitrogen [Mass/Vol] 21 mg/dL Normal - [facility] Comment on above: Order Comment: Speci men Type: BLOOD SPECIMEN Ordering Facility: [facility] Address: [address] [place] [address] Performed By: #### 2 4323-8, 93734-3, HSTROP, B #### [facility] CLIA [id number] [address] [place], [place] [address] [place] ECG COMPLETEon 2024 ECG COMPLETE Ventricular Rate : 8 5 BPM Atrial Rate : 85 BPM P-R Interval : 202 ms QRS Duration : 88 ms Q-T Interval : 374 ms QTC Calculation(Bazett) : 445 ms Calculated P Marcella : 61 degrees Calculated R Marcella : -24 degrees Calculated T Marcella : 70 degrees Normal sinus rhythm Possible Anterior infarct , age undetermined Abnormal ECG When compared with ECG of 03-Jun-2022 10:58, Questionable change in QRS axis Confirmed by GOLDEN ESPINOSA MD ([id number]) on 07/20/2024 11:53:25 PM NAME : CIRO HAWKINS PID : [id number] : 1965 Gender : Male Race : ORD : [id number] Procedure Date : 2024 09:51:07 Edit Date : Jul 20 2024 23:53:25 Diagnosis: Normal sinus rhythm Possible Anterior infarct , age undetermined Abnormal ECG When compared with ECG of 03-Jun-2022 10:58, Questionable change in QRS axis Confirmed by GOLDEN ESPINOSA MD ([id number]) on 07/20/2024 11:53:25 PM Test Reason : HCS Location : 0 : ED EDFTE Overread By : GOLDEN ESPINOSA MD Edited By : GOLDEN ESPINOSA MD Referred By : , Acquired by : [id number], Normal [facility] ED NOTEon 2024 ED NOTE HNO ID: [id number] Author: DORIS ALVARADO CT Service: ? Author Type: Clinical Senior Associate Type: ED Notes Filed: 2024 15:45 Note Text: Pt refused a gown. RN notified. [facility] ED NOTE HNO ID: [id number] Author: SHARAD HUA RN Service: ? Author Type: Registered Nurse Type: ED Notes Filed: 2024 13:12 Note Text: Bed: 30-ED Expected date: Expected time: Means of arrival: Comments: [facility] ED NOTE HNO ID: [id number] Author: ALECIA FONTENOT, STEVEN Service: ? Author Type: Registered Nurse Type: ED Notes Filed: 2024 09:25 Note Text: C/o weakness and nausea. Pt's blood sugar is in 500's per squad. Pt had skin cancer removed left upper arm last week and it is red and swollen. [facility] ED PROV NOTEon 2024 ED PROV NOTE HNO ID: [id number] Author: INES HAYWARD MD Service: ? 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 [facility] ED PROV NOTE HNO ID: [id number] Author: MIRNA CALIXTO PA-C Service: ? Author Type: Physician Goods Layer Type: ED Provider Notes Filed: 2024 15:42 [...] 104.3 kg (230 lb) 1.753 m (5' 9) Physical Exam Vitals and nursing note reviewed. [...] EXPEDITED - Ly (more content not included)... [facility] ED Triage Noteon 2024 ED Triage Note HNO ID: [id number] Author: LUIZ KIM PA-C Service: ? Author Type: Physician Goods Layer Type: ED Triage Notes Filed: 2024 09:35 [...] bolus ECG COMPLETE SIGNATURE: Luiz Kim PA-C [facility] Gas and Carbon monoxide pane l (BldV)on 2024 BASE DEFICIT, VENOUS -1 mmol/L Normal -2-0 [facility] Comment on above: Order Comment: Speci men Type: VENOUS BLOOD SPECIMEN Ordering Facility: [facility] Address: [address] [place] [address] Performed By: #### 2 4344-4 #### [facility] CLIA [id number] [address] [place] [address] Body temperature 97.34 [degF] Normal [facility] Comment on above: Order Comment: Speci men Type: VENOUS BLOOD SPECIMEN Ordering Facility: [facility] Address: [address] [address] Performed By: #### 2 4344-4 #### [facility] CLIA [id number] [address] [place] [address] [place] Calcium.ionized (Bld) [Mass/Vol] 1.10 mmol/L Normal 1.08-1.30 [facility] Comment on above: Order Comment: Speci men Type: VENOUS BLOOD SPECIMEN Ordering Facility: [facility] Address: [address] [address] Performed By: #### 2 4344-4 #### [facility] CLIA [id number] [address] [place] [address] OF [place] Carboxyhemoglobin (BldV) [Mass fraction] 0.8 % Normal 0.0-2.0 [facility] Comment on above: Order Comment: Speci men Type: VENOUS BLOOD SPECIMEN Ordering Facility: [facility] Address: [address] [place] [address] Result Comment: Carb oxyhemoglobin Reference Range for Smokers: 2.0-8.0% Performed By: #### 2 4344-4 #### [facility] CLIA [id number] [address] [place] [address] OF [place] CO2 (BldV) [Partial pressure] 38 mm[Hg] Low 42-55 [facility] Comment on above: Order Comment: Speci men Type: VENOUS BLOOD SPECIMEN Ordering Facility: [facility] Address: [address] [address] Performed By: #### 2 4344-4 #### [facility] CLIA [id number] [address] [place] [address] OF [place] CO2 adjusted to patient's actual temperature (BldV) [Partial pressure] Normal [facility] Comment on above: Order Comment: Speci men Type: VENOUS BLOOD SPECIMEN Ordering Facility: [facility] Address: [address] [address] Performed By: #### 2 4344-4 #### [facility] CLIA [id number] [address] [place] [address] [place] Glucose [Mass/Vol] 397 mg/dL High 60-105 [facility] Comment on above: Order Comment: Speci men Type: VENOUS BLOOD SPECIMEN Ordering Facility: [facility] Address: [address] [place] [address] Performed By: #### 2 4344-4 #### [facility] CLIA [id number] [address] [place] [address] [place] HCO3 (Bld) [Moles/Vol] 24 mmol/L Normal 24-28 [facility] Comment on above: Order Comment: Speci men Type: VENOUS BLOOD SPECIMEN Ordering Facility: [facility] Address: [address] [place] [address] Performed By: #### 2 4344-4 #### [facility] CLIA [id number] [address] [place] [address] [place] Hemoglobin (Bld) [Mass/Vol] 14.3 g/dL Normal 13.0-17.0 [facility] Comment on above: Order Comment: Speci men Type: VENOUS BLOOD SPECIMEN Ordering Facility: [facility] Address: [address] [facility] [place] [address] Performed By: #### 2 4344-4 #### [facility] CLIA [id number] [address] [place] [address] [place] Lactate [Moles/Vol] 1.3 mmol/L Normal 0.5-2.2 [facility] Comment on above: Order Comment: Speci men Type: VENOUS BLOOD SPECIMEN Ordering Facility: [facility] Address: [address] [place] [address] Performed By: #### 2 4344-4 #### [facility] CLIA [id number] [address] [place], [place] [id number] [place] Methemoglobin (Bld) [Mass fraction] 0.1 % Normal 0.0-1.5 [facility] Comment on above: Order Comment: Speci men Type: VENOUS BLOOD SPECIMEN Ordering Facility: [facility] Address: [address] [place] [address] Performed By: #### 2 4344-4 #### [facility] CLIA [id number] [address] [place] [address] [place] O2 THERAPY RA=Room Air Normal [facility] Comment on above: Order Comment: Speci men Type: VENOUS BLOOD SPECIMEN Ordering Facility: [facility] Address: [address] [address] Performed By: #### 2 4344-4 #### [facility] CLIA [id number] [address] [place] [address] [place] Oxygen (BldV) [Partial pressure] 33 mm[Hg] Low 35-45 [facility] Comment on above: Order Comment: Speci men Type: VENOUS BLOOD SPECIMEN Ordering Facility: [facility] Address: [address] [address] Performed By: #### 2 4344-4 #### [facility] CLIA [id number] [address] [place] [address] [place] Oxygen adjusted to patient's actual temperature (BldV) [Partial pressure] [facility] Comment on above: Order Comment: Speci men Type: VENOUS BLOOD SPECIMEN Ordering Facility: [facility] Address: [address] [id number] Performed By: #### 2 4344-4 #### [facility] CLIA [id number] [address] [place] [address] [place] Oxyhemoglobin (BldV) [Mass fraction] 69 % Normal 4-98 [facility] Comment on above: Order Comment: Speci men Type: VENOUS BLOOD SPECIMEN Ordering Facility: [facility] Address: [address] [place] [address] Performed By: #### 2 4344-4 #### [facility] CLIA [id number] [facility] [place] [address] [place] pH (BldV) 7.41 [pH] Normal 7.32-7.42 [facility] Comment on above: Order Comment: Speci men Type: VENOUS BLOOD SPECIMEN Ordering Facility: [facility] Address: [address] [address] Performed By: #### 2 4344-4 #### [facility] CLIA [id number] [address] [place] [address] [place] pH adjusted to patient's actual temperature (BldV) Normal [facility] Comment on above: Order Comment: Speci men Type: VENOUS BLOOD SPECIMEN Ordering Facility: [facility] Address: [address] [address] Performed By: #### 2 4344-4 #### [facility] CLIA [id number] [address] [place] [address] [place] Potassium [Moles/Vol] 4.2 mmol/L Normal 2.5-6.0 [facility] Comment on above: Order Comment: Speci men Type: VENOUS BLOOD SPECIMEN Ordering Facility: [facility] Address: [address] [address] Performed By: #### 2 4344-4 #### [facility] CLIA [id number] [address] [place] [address] [place] Sodium [Moles/Vol] 132 mmol/L Low 136-144 [facility] Comment on above: Order Comment: Speci men Type: VENOUS BLOOD SPECIMEN Ordering Facility: [facility] Address: [address] [address] Performed By: #### 2 4344-4 #### [facility] CLIA [id number] [address] [place] [address] [place] HIGH SENSITIVITY TROPONIN Io n 2024 Tropinin I.cardiac panel High sensitivity method 18.3 pg/mL Normal 0.0-54.0 [facility] Comment on above: Order Comment: Speci men Type: BLOOD SPECIMEN Ordering Facility: [facility] Address: [address] [address] Performed By: #### 2 4323-8, 72839-1, KHADAR Pamela #### [facility] CLIA [id number] [address] [address] [place] HISTORY PHYSICALon HISTORY PHYSICAL HNO ID: [id number] Author: ROGELIO COMBS DO Service: Hospital Medicine Author Type: Physician Type: H&P Filed: 2024 18:43 Note Text: HISTORY AND PHYSICAL SERVICE DATE: 2024 SERVICE TIME: 6:08 PM PRIMARY CARE PHYSICIAN: Ciro Schultz MD Subjective CHIEF COMPLAINT: Abdominal pain, nausea HPI: Patient is a 59-year-old male who presents today to the [facility] emergency department for further evaluation of [...] chloride 0.65 % nasal spray, Use 1 [place] in the nose every 6 hours as [...] 14 Un (more content not included)... Normal [facility] Magnesium SerPl-mCncon 07-18 Magnesium [Mass/Vol] 1.9 mg/dL Normal 1.6-2.6 [facility] Comment on above: Order Comment: Speci men Type: BLOOD SPECIMEN Ordering Facility: [facility] Address: [address] [place] [address] Performed By: #### 2 4323-8, 36587-1, [facility] #### [facility] CLIA [id number] [address] [place] [address] [place] NURSING PROGon 2024 NURSING PROG HNO ID: [id number] Author: SHARAD THOMAS, RN Service: Nursing Author Type: Registered Nurse Type: Nursing Progress Note Filed: 2024 19:27 Note Text: Dr. Sykes to the floor for consultation. Patient is reporting to the physician that he is not having any abdominal pain. Normal [facility] NURSING PROG HNO ID: [id number] Author: MARII NGUYEN, RN Service: Nursing Author Type: Registered Nurse Type: Nursing Progress Note Filed: 2024 21:23 Note Text: Pt agitated can't find phone. Walking down castro. Return to room phone found. Much calmer and pleasent Normal [facility] Resp path 12a Pnl Spec JEFFREY+p robeon 2024 Respiratory pathogens DNA and RNA 12a panel JEFFREY+probe (Unsp spec) BCID INTERPRETATION: Methicillin-resistant Staphylococcus epidermidis (MRSE) detected by PCR. Single positive cultures of S. epidermidis usually represent contamination. Call lab within 72 hours if further work up is required. Abnormal [facility] Comment on above: Performed By: #### 2 4344-4 #### [facility] CLIA [id number] [address] [place] [address] [place] SEPSIS LACTATEon 2024 Lactate [Moles/Vol] 1.6 mmol/L Normal 0.4-2.0 [facility] Comment on above: Order Comment: Speci men Type: BLOOD SPECIMEN Ordering Facility: [facility] Address: [address] [place] [address] Performed By: #### S LACT #### [facility] CLIA [id number] [address] [place] [address] [place] Urinalysis complete panel (U )on 2024 Bacteria LM.HPF (Urine sed) [#/Area] Rare Abnormal None Seen [facility] Comment on above: Order Comment: Speci men Type: URINE SPECIMENOrdering Facility: [facility] Address: [address] [place] [address] Performed By: #### 2 4356-8 ####[facility] [id number] [address] [place] Bilirubin Ql (U) Negative Normal Negative [facility] Comment on above: Order Comment: Speci men Type: URINE SPECIMENOrdering Facility: [facility] Address: [address] [place] [address] Performed By: #### 2 4356-8 ####[facility] [id number] [address] OF [place] Clarity (Unsp spec) Clear Normal Clear [facility] Comment on above: Order Comment: Speci men Type: URINE SPECIMENOrdering Facility: [facility] Address: [address] [address] Performed By: #### 2 4356-8 ####[facility] [id number] [address] [place] Color (U) Straw Normal Yellow [facility] Comment on above: Order Comment: Speci men Type: URINE SPECIMENOrdering Facility: [facility] Address: [address] [address] Performed By: #### 2 4356-8 ####[facility] [id number] [address] Epithelial cells LM.HPF (Urine sed) [#/Area] None Seen Normal [facility] Comment on above: Order Comment: Speci men Type: URINE SPECIMENOrdering Facility: [facility] Address: [address] [address] Performed By: #### 2 4356-8 ####[facility] [id number] [address] [place] Glucose Test strip (U) [Mass/Vol] 3+ Abnormal Negative [facility] Comment on above: Order Comment: Speci men Type: URINE SPECIMENOrdering Facility: [facility] Address: [address] [place] [address] Performed By: #### 2 4356-8 ####[facility] [id number] [address] [place] Hemoglobin Ql (U) Negative Normal Negative [facility] Comment on above: Order Comment: Speci men Type: URINE SPECIMENOrdering Facility: [facility] Address: [address] [address] Performed By: #### 2 4356-8 ####[facility] [id number] [address] Ketones Ql (U) Negative Normal Negative [facility] Comment on above: Order Comment: Speci men Type: URINE SPECIMENOrdering Facility: [facility] Address: [address] [place] [address] Performed By: #### 2 4356-8 ####[facility] [id number] [address] [place] Leukocyte esterase Test strip Ql (U) Negative Normal Negative [facility] Comment on above: Order Comment: Speci men Type: URINE SPECIMENOrdering Facility: [facility] Address: [address] [place] [address] Performed By: #### 2 4356-8 ####[facility] [id number] [place] [address] [place] Nitrite Ql (U) Negative Normal Negative [facility] Comment on above: Order Comment: Speci men Type: URINE SPECIMENOrdering Facility: [facility] Address: [address] [place] [address] Performed By: #### 2 4356-8 ####[facility] [id number] [address] [place] pH (U) 6.0 [pH] Normal 5.0-8.0 [facility] Comment on above: Order Comment: Speci men Type: URINE SPECIMENOrdering Facility: [facility] Address: [address] [place] [address] Performed By: #### 2 4356-8 ####[facility] [id number] [address] OF [place] Protein (U) [Mass/Vol] 3+ Abnormal Negative [facility] Comment on above: Order Comment: Speci men Type: URINE SPECIMENOrdering Facility: [facility] Address: [address] [place] [address] Performed By: #### 2 4356-8 ####[facility] LABORATORYCLIA [id number] [address] [place] RBC LM.HPF (Urine sed) [#/Area] 0-3 /HPF Normal 0-3 /HPF [facility] Comment on above: Order Comment: Speci men Type: URINE SPECIMENOrdering Facility: [facility] Address: [address] [address] Performed By: #### 2 4356-8 ####[facility] LABORATORYCLIA [id number] [address] [place] Specific gravity (U) [Rel density] 1.024 Normal 1.005-1.030 [facility] Comment on above: Order Comment: Speci men Type: URINE SPECIMENOrdering Facility: [facility] Address: [address] [address] Performed By: #### 2 4356-8 ####[facility] LABORATORYIA [id number] [address] Urobilinogen Ql (U) Negative Normal Negative [facility] Comment on above: Order Comment: Speci men Type: URINE SPECIMENOrdering Facility: [facility] Address: [address] [address] Performed By: #### 2 4356-8 ####[facility] [id number] [address] [place] WBC LM.HPF (Urine sed) [#/Area] 0-5 /HPF Normal 0-5 /HPF [facility] Comment on above: Order Comment: Speci men Type: URINE SPECIMENOrdering Facility: [facility] Address: [address] [address] Performed By: #### 2 4356-8 ####[facility] LABORATORYIA [id number] [address] [place] XR CHEST 1V [...] thoracic spine. IMPRESSION: No acute radiographic abnormality. 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 Transcribe Date/Time: 2024 10:45A Dictated by : RAEANN JACINTO MD This examination was interpreted and the report reviewed and electronically signed by: RAEANN JACINTO MD on 2024 10:46AM EST [id number] [facility] Mohs [facility]on 07-11-2024 Consent obtained: ronit [place] Protocol: Procedure explained and questions answered to [...] WITH epi Procedure Details: Case ID Number: [id number] Biopsy accession number: [id number] Date of biopsy: 03/06/2023 Pre-Op diagnosis: squamous [...] care instructions given Dressing type: pressure dressing [facility] Work Phone: [facility] Work Phone: Dermatopathology- DERM LABOr dered By: Lois Castanon on 05-23-2024 Laboratory comment Sammy (Report) a8joeZUbIBXed1mvQVLpuGNiNzG wMzNcZnRuYmpcdWMxIHtccnRmMV trt0DwM9FgMnIjVIvtrgBsARWoQ hbmmefoMHYoYMK1biUcUIJyVGfn AGToPPsfCt3bsOSrzYnpGpIwKJA yb8kjuvGEGVwnKACZLNb3c9zvUA UoQaV0xGNkPFrpC9pqbiNmyHFyS 3Vtf9EhTRr8eP40CIQkkW2qlPWh KNmiweEoKsN5LChrDKUmTbZ8CPY moEIzGDHpK1atKFMvONndLZDnLS xssJOvASA1jMcwm2A6zGCrmNAaj VkzYvBvVdZxOeGYl7DfFWn0yYzu N1ZhVFVlSjK0hRVyQPOoQRhiYXB eNQYiceT8pN65IOwxqcU4iONbz7 Ska86ha989oY5gtGGrIFW6NUTgJ WPhzQWaWUNvUXD9OCOjbUVxI9kg QyLyrHTuU1DuMeGrdUCdJ4MoTfE soLObI4YmVmZtaJAvQBNmoTV5PV gbb704FPH7AzKcRQ3vN4Nuj6U7t F9oyCGcZCCfrYOyAqGsWFWipx5r wTXgDUmvs5UsHYE8grA7wROdkRR tVVKaKR95Awvvc0QqWhkwKDY4KU UiomNdt0Aec2xpPrAognBpJ1loD 0KmEPDkCBIlDQUbSbZlzhVch5Ru g2ZtuJZymLk6c0awRDUiKGKjaBm rk7okAZR0RPLvW8V0sHWvu1ewSS vcUWHwmLO5jtQ3UQxrSOEzceT9l oR6JQdxLTLueCP2tqW1TIpsVGCn NpB6khJ4KEkaGTAdBFA6MoOfTWF sq2CrckapMpJek8YenVPzROiqQ1 7ef964LNLyodLkH6caiGYqmytyf QRtmfunEJjuzqU4SVPxEHNqYCkj XGYxXGZzMjBcbGFuZzEwMzNcaGl icGmmBTbgLbBcKFIcPIwhS1zkBe ElIxUdHGXDwZB4vQHwg2jwdyL0j MBbGL0rJPIhsEWvplGzv6U2FVC2 zTDqbG4agJRoOASlsBVtiyObsj9 6oHRamZL9SNFpNVHlzNTpwV2eXU FcBXKUpI5ohZAShqRtlxIvYXRyd Hyggb2SgQXqgi9zaEBhE6BnuKqu aWVzIHRoYXQgdGhleSBoYXZlIHJ kdwsfr2DpHYIzcTHvK4WeAS1yGY Bhcn19 [facility] Work Phone: Pathology report Cancer Narrative Dermatopathology Case: [id number] Authorizing Provider: Cesar Broderick MD Collected: 05/21/2024 1058 Ordering Location: [facility] Received: 05/21/2024 1211 Pathologist: Lois Castanon MD Specimens: A) - SKIN, left lateral distal arm, adjacent to scar B) - SKIN, right lateral dorsal mid forearm C) - SKIN, left medial upper back [facility] Work Phone: Pathology report final diagnosis Narrative y4hqjKUgWOPmqNPjUObfFdxkjdQ qTGWkdIVuO4VpzzlzKRdfRG0bSN 4yoArhuDFnyMHxHNDqSwEzd4end 347vCIdu6haSSVCxypqdQn2oDex Q51fn4L7YefuC39bvNBuNQC5JOZ qLGKzgFBdCKMhVRS3MVUfvORdY1 ryEIPmZM0rgmyvTJxcRWirMTCwc RA5DQSpnMUkG0HkBRQbOEdmWUDg pqh2XuTaPw9hjSOesUloQAbhYKU eNAMlAWjoRHYaXoLoLHtwC6qQKl zlKBFTRNTPFVZBTwDQFMBHL9RXT TBZOf1fWYRTYjODYL7NJJLBBKUM JDMbYDEHCGXLWCOLS1yVGD6XDls qYQUvPiSUAHFOJO9CRiAAGMwDZI QNAgTDXs3KCMIUHaFSWQGCMXHji ATmjUAjfRpfNnxsvUU8OZrwKugz wS8lzMOTVAIZMwmTIhtsveZiAX9 RCJCUDkYUHW74Dwq7YKo5BSdcoT cpLbkrjoAgiORwUbJonA1OXaRAG H6EQS1PWKPAYBNBIOFVWBUFZUHU GLPQHLaYPwAAYS1WTozCTruaEot mfNT0PGumDiseyC7ceLDGIGARMw hSWjkqhmRgSA0BZQGGAM7UzRM1E OT4xIM3FE60SSTdSRBtzXIxSDda T694ROCrXInnINOhAiPiYKBiGDP hclxwYXJkXHBhclxiMCBCOiBTS0 lOLCBSSUdIVCBMQVRFUkFMIERPU pPDELDCBRYzAp6FFCXTDBdrE4gK RzOhJKpZSDDLY128XVUlukwlPXS KF8MSNCOTKSqbN6FOX0iML35RRE BuqQEtaMRoqDogMwqeoVL2DSmpP wqggV3gkQFMECNVHzeSFldpqlJq XF8EKOPTObFRLD99Fvv1FMH8Ygu ljLjmCrbcwtOuaHMqAlSnsG9HH4 SJMDVZd0veuVRlDYloEtmlqVBhe kZ2LAcXJHOVQYtYUmCmWU7qOOwO K6GTQsT1Gvh5PSW0ZvfppMamAmx qrgHsuTWoTwKlqV3qzEvfuL6fDl fajqCfSFQKCj6VKNhoICQYSAWIC ihlLEKct5YoA5F6OXDpGKelt2il ILUhTUwit2BvJOkTOETTAG2IBW7 wvDS7TXpGVYPVS2rKhIN2RCH6mX A0B068OKTwINXgmJNzFRapM022K DGZC9XQCUYJHxENKUJtTSTIJYTR TkQgUEVSSVBIRVJBTCBNQVJHSU5 5OIUcHWpiq5khUSLeCAxui8RoZK zBWETAPR7OTZ8syBW3ATiGVUNGX MbfTJfyJIahdQD4q5ovpNFfg7x7 PRglGEB2nHycnBSahqsyCFAiQuQ gLlxwYXJccGFyZFxwYXJcYjAgQz tlA0bCNgsyWSPUDLBQFRQWTGipZ NPWOXYjQtGRUlodO7qNDyZnOZoU JYEEX439CKXitiwgVU8HUYCGWSO OBTCRZPDJTAePLGVYCZIGLS0CNX 5FVlVTLCBccHJvdGVjdHtcZmllb EI7DMfcIwejsU9xmQNYZOUOVcfM LjezadCnAH9LZSSDSoCATC93Zhs 8ZYj3EWz7nFkcOulifbKjaFUxMj AjoY4SVieVVIFYCAIVRN0OTVNCB OPcHU5aPUfYVPRJXS0RYdDCTuDE YVGYGF9ONhOHZGIRSK8SDAyfGiy tzJT9KYkdIsxlsG1rlRZKCUBAQw jSShrlexEvMH1SOZHLPD3UiEH6D LJ8cTU6QE21DIQeDRTfdIIgUBym F082TBKaNNwvEIAxHlAwBOGpJVU hcgvrTIKdCXVlgjegfNS0GBNwNn z6RmZkmPorVil4TWOhAtOQpMJwi ECcydlsSRjasHNxzLmvDVPrh7T1 KDT5CQjktmHxNQ5qLJRrXTWvEww ztWIgZFHviyPrpMTiWCXsR48GSa MTMRWDO83NOVVCMWHTP7SLP8aSG RH3PBS5uCG9A65yBHT9UwimKGWe Njm8IEl7Cd8wDhW1ODO0pRO4MHV CIZXIBYwGV3VfDORBGALQCWEpLJ 9WTOeDNMJSZSEFB96HKENHNDYBU 7KAS6dODKtKXWTIEPPSR60EDSIM XAKNT9OGJEGRSRHNPFmOMDTBJg6 ENXFGFMXNMB3MUSmJMjJnGTzlBH YarEX2oQ9nxjywohbyJYzjMPj1M jh8IRTWCMZFHDaWU9ZMIYZYCGAK XpB8OMJzID4aYLzaKGLwrSQ5nR5 lffmvvtunVQcjPIa6CDs4CQTxwW JdkFvrYFZsfO19Qua0OGebgXROI VNDTIqMDYZJDw0MIYJZYFHIYB6U PcWkY1XBRA5RWp5MFBPEQUOQPH3 YXFvROyXhO0ATZX8GOa9FUZBCRZ DEOO4LCbXpJFNCM8CGEtZRM1tvU LLLWPMOVFAhIePWBB0hFIRXVZ7C RZTGXREDA09YMIPZHQLJO8CLDD0 = [facility] Work Phone: Pathology report gross observation Narrative j5pjgGIdPZRavHOmRZldUytdhdB nNXGlsQFdX9DaltefCJcjCX7hQD 4mrLksyYJblZBdTJWzLjQvk3ute 874vHMvi9ohFTDNfjzmiAj9jPit L53lu3Y6NtkuM13ynYJbQWE7VQM dIUGsiYEgGMFdXIU6UZQedUCbP7 asWYBbJD2llcvpKVnrLZdvPUIwj CK6XWUusHXtF0JoUFYsIHzpTPGp pqs8IrYbPv7ngZNmxEsgNGxbIac hiXuri8PohJLbMAlyOKMgRYHdOO uqhasqWCv8RTEwIPkakYDmJJ8tx LqxVrlqpAnrc7OnwTNcNOgyDSHo GGZqBGdjFWYyN2RWNBFgJjF0ZJJ gRJcbSAn8ERb6NU9OIjDoMBKpMl L0Dfr3AqWnEUl2TLlxEK8AIKOjM HikYsM8LtysMULgEYBxCPl9VQRy XFxzcyAzIFxcZmwgXFxuYyBcXGZ yfVxwYXJkXHBsYWluXGZzMjIgQT wgeJDrXUUrtxQxq5FbARhjcOttO SCnZzIrv3RsUQzpkVbdIGNiZmTb eSsflE8xTpGkAYQiWwHaJRw8FFE jlH0jWq3xlMAkaG0uzBBeUEQ8VM 5xqSoeU2Iod6Afx0hdmxEdRFPtx UNvzlxlJWivwJJ5XNpeOSYioE5w WKZwZBGzhVLoaW0xdeDbqqIwfsc gSYQghyTmGE7wIZTbZBVbcH2jpW 90lx0bKYemAFYjJ3UwL3CvayY7Q JIkkuljTbhmoAfja6UokWAyQDpm WKCsMSYaQBsrBPRkQ6HBULXxKwZ 4HGYcDNemHFy8PAf1DD4JXcHySS FqXoV4Jlo7SPTdTWj2WLihEG4UR DEzMTgyNjUwNTQgNTQyOTYgXFx0 IDIgXFxzcyAzIFxcZmwgXFxuYyB pKGZzyYteSJJgLWEoUIK2ZMTexD VCx5SuXYNeRhRwEmKGMjltDMEfb SNhEFxoGaOzNSWduXMMo0GrLSml BOXlLEYdvOKEl1GhHZlmjXSbepx mczIwICBSZWNlaXZlZCBpbiBmb3 JtYWxpbiBpcyBhIHRhbiBwaWVjZ IQcFcWay2sxZV1vRFJ9cpgnZlU0 AEhoEWE1QUUtlS3yXFBSjGZbg9B iU5zsLN1ucXQkqF3nCHAyZC8zFS OcJgIbAFJsQRebNLYeoZ7eTMW4N LGksBQsIPT3NX0amBlyWTY5GPma JMHtF5SlK8ReNUhlUUK0ATSuJoN oWGYgZU1MGhUmBUMcEhHpEyT2By K0NCu5RKWSNnKhRhLyMScsQmG0R yEmJNi7XCs2MLyNUkSbHeK0SaM1 RNK4ZBO5Dlq4DRpvjDXcKAzvc8C oZeLiXMIeBQkyvePkVQrtfs0fuA XrRYlkOdTbCEwmuKhtWHCrPTF4I OVhBcEjWrudyRXyPZKzxcQmf8Lr MFfagPlpKEUqNeVpaAabkI3aGqF cCOARDWQotCTjOIZrbbUee3BsNV ssmdBjctXcZFSlwc2nod04mmIxx EU9FKUkjZ8rs8rxp2Cwx5edjiOf KYLngKYrwysmEBA9ZCwfbDGsSN0 tLiAgVGhlIHNwZWNpbWVuIGlzIG xyc5CfCYVgOKXgoVAiWMFvGQXea sI1v2TeEpOlHUJdumduIUQzPEEz UwIrNSGbU4abEDEeWXN8KRJhmTE uKOE9OX8qcSdtNGAaE3LeS1Jeen M8NOWudh5= [facility] Work Phone: Pathology report microscopic observation Narrative Other stain f5cgiGNoJQYrrDGdDPayWtywvmW iXXJihZLnF7JmzrcjNUazBJ5lFQ 9nkYnljOQluRNgCDZcJrTsj6ava 807zQIdu5frKJOHboumnPx0lLvv T51oc7M5UfclI81guZMfALJ9TBT gNJFymZBvJDXfCSP8GZBsrUQfJ9 reFHXyZF4mcgsqFUyiSBngXJKkq UD7RXTbnURxH5YbIDMfHOjxAOGg his7RyZgWn1egZFuxYivIKqjWZK qHIHoYBpkBGPaAyBzZA5gJKgnlc 1aN85ewFAkTV1bnMbsgGGod3ifh 3MgaHlwZXJwbGFzdGljIGVwaWRl mt7xxyZ1yDJmBSV6oIzwoJsaY3k hTSSxYWF4kPQeIWWuXjYoETSorH mek4O8mTRpOhjmEXGvvWKeURIhA W7lV8Fdb1RgvGtvVNAoDWu5w3uq VXEwe7kjINDoSFksU6KrcEPqyc1 heAnoWI1zTAU6mH1fVNCaZBFtoB XdUIZgn6KkFIFhOSE9aOHoSZEpG PSruSjjXXHwqZZkKKVDiMHpM5Zo N0kbi30yDZhsNCFsxMXhi6UqLS4 nGZOwPS0vNXUbv3Vgt1koRClvlx E2jT9rT2d7ONHqf9v5hEPwJQIgy GhlcmFsIHBhbGlzYWRlZCBhcnJh bmdlbWVudCBvZiBudWNsZWkuXHB seuksBRIyVp0hMZikqw2vJ79vwK EhDA4gpQvwsWZak9njy7IsST9nG ET9oL0jgSKkNyHpvi5gtXRlyrF5 hF9jZB0pQG5pyTMts2U8aSNvNXQ 2tMJdKGrqybHbG0dht9CmPWz3qS XigPwwf6jkCQ3oHLXfcFMmhp2rv l3mUJitTZYuUBr2eQ0fLNRvBG4f yCZms7V6hFTqEVToRAJdSY0ng9W fkWMhSHy4rDVugYknSPupybyipF vqHJYaxt3utG0vgKmaTSAvSCzev vJzJ4Kcg46hMR94jCWoQHEnTML2 stAaMC7uCDB2z1EqWUQrDBMirlA cyWQwUBKok3iqyRfhLPVzo8Vphp BlH8Fjr29ieLVcAKD2uoHgOuPqE Eigwj9ylTMqbvO6rZK8XOS5vILz LGRwPNprqzXrsYbzEVWzhp0bjCK xLAY9lgypvGVzYG8sH1x6JWAnya xoZ5tsNdtuxNUpvGdgJPB3ECKef q7zlATrsEAah0OxKXNhVDfgaXGd AB0hvJzsK9RxKDFffuYjeN0teEK wlKE2i6Y4TFJqmJixFMvuHGWeuM lsbGFyeSBkZXJtaXMuICBUaGUgb IIdVW9qD8m1RAYljC4nXBOjPQJo xXkdOGTyr7tjjsNsXO5fMSY1gZ1 kz0dbQdBclBmzaFEoXNFbzb5= [facility] Work Phone: Pathology report relevant history Narrative v9tbjMZwXWOiu7wpZCGlfNKbUvN wMzNcZnRuYmpcdWMxIHtccnRmMV wfy4JnJ7JiWeXmXSvydmUiCKXaA bripkzoPREiNKK9zxNvCODuSQll SBSnKIncOs4jsSFpvFniTtBbKKS sr1hcujTDPUqoKQTDXGq2i0uhXA HsMgR6nPSzYBisF9qimvXtrYBpN 1Asx1MtZDy1xE06ANAkgC0awRWy PYqrmdMtMeQ9AHerXPMaPmD5SPC ozRGuWDAgB5mgOUHmPUzwKSCkEU merNRyMIT0eNkir2S4eUQosCZcw YxwTuDsOqTfPhLFn9BmUSc9pQpa F6XhXHIeWiM6dEJhJGGlUWxwMHK nKEWaojU5aY43XJimgnX0zUEqr7 Gta06el008uW7niXOxSBZ5PGXuA XAzqIVjBYOdYPY1QNKyfJIfO7pa FXLgJC7ysuosKKauAAwoZTUpkAC 7WGZdcTAsY0WrBOLhOXldKRGwwq t8BhFeNk1ybHNmbVccLJqrn2axz 8xsyEWxJmq4LWXjCpNvAldoXStw i6Bty9ywUSCsku7zXIA5zOOetBq qq7B5iQKcMZFhyELvtrYbXYSzNe U9SByjXZ1gpa57KJNoAEL3bf5un BEqrDullhPkbKPkKFsbV3ZiJBFt v277JOCkE6NxAHJrs0P3qwCyIwV uJTDjxLW1ktS6DAAdLQv4cANwje I6seVwbBSqX2yeeF1yNJHnZM4vd ghgx9aaOVgmVXiuNJFytVP4qqB9 DAWzxPMzE7RryW0mKTJqNUqyGUV rjje4IqHhXx8jzLVpdOrwGOgjLt twYWdlXHBnbmNvbnRccGduZGVjX HBsYWluXHBsYWluXGYwXGZzMjRc cGFyZFxwbGFpblxmMVxmczIwXGx hpqqnXUZeEFezZ8pgJnTaHIMvvY isVImht7TjZXMdCSRfNtrigfJiF AYcC719lkDnujDSgSSsrl1lzRV8 JD9xe6QrSXPcHJ0aLERwO5QmqEW ftbKfKXctiotwkxSvAyByr4obBM xwYXIgXHBhclxxbFxwbGFpblxmM XguqmV5HPDcOFfjUWCdFVLsKgPp bGFuZzEwMzNcaGljaFxmMVxkYmN gYOJwXXcpB3ciJaHvG6ExYEEkFq NwOYGumzOAYvGyUVE9RFPwOTufB VMeA16tuFOimKgrciFCd95fRP79 ooucPDqqUsYsUA32tTTmDOTbOTz pq8Npepzmyq5jPTDKB5zVOCInGX oeB1EupJV3cbYVXMGJTBYoWZPph MLyBWYoCTHbER0ksuljsdIrOLQh P00nNsbrVWqgCVXoJ83pyRZbdZM 0MZZwlECsLWLbic5wKJXvJPmbEb wbUo25bEoyJOJOxGB5m3HlnYimj R9zxLZeRu2iyVBvkN1lNvn1DEZz zYbqg5XxJXveHEDtMgkzGSvtCdX JSSxgn275FTllWmCiDPkyl1mvFS FQg3U9DNTvx5AyhVFfRPRwQYKjh CJsVO9qwjOjyXp1WBlmGGYekROb cZ3gXAc3aTNas3YtSQKrwEclAAN mkJHjONAaIOkkI3JrmMH3iiXqA3 YtDORklgSxeXEmHOiTKbEyTCD4R EEzQmanGQJfC36rmTZojKtlwsUZ i01wRZ20sfvxQAefMlZwKI04vSS oHKMpHAnzv6Gcafjdce9fCHNPJ8 wbOXAkK7laD7hiABKvT5eqcjTFZ XMvTm8/HoWsEQPffhSQc57hYR30 czogIFxwYXIgRGVybXBhdGggTGF rHcGMu8W3eS9jSRrsm0YwiCA0iI 6kk3p6PNfov3LhJJuykc9zqLtnY UV9cCTdsAFhSWUtlgXCrF5qoD1w OSJbR4bhxrprRdfgmCUxQy2xTUF nxZHeOFKuj7JddjbhxzftPWDsV3 TeQ2tzPI5mH6OtXJI4yDTqMkUxD N3hICAqwmlwo8ThpAbizSNevUxl BIAufkDluODnTUqHNiEhXIZ1NTZ eY2xhISVyY54vpZMsvUjxarKLn8 8fAA53rzhoWDnjWiJqPS63iTQlB IKzHMbcy9Egwzjmrq3zFXS3n8Fc JSX5aCUdenD6xHBrZREiuqHAqPU qcmAJEZLphG6iRQmknm8Miu14PU VxgNGfUJCixU6hlfPkFxLhFSQma iNNWJUekLH5eJESANO9WVFgaVPd ohCoUGxlaL5iDEHkq2ftX9tmHWS vhc8krEelDNPemLHvZDTcq5Q1JQ seeIOePAMtyaCsqsctHqKeaF1wS yDYTRB1KZXrdHPtDUVvT0mleWIw UNEfNKDfuIQcGP3zixGbcEh6HKe eTHIckJAkrkBjG0IuAIXkvZdoBP OlfZurUP26PSNklWCihOzvNVOee iBccGFyIFxwbGFpblxmMVxmczIw QVuvopjaBIBkZRriQ7ajIbZqCAH opApxRPurs5UaSXFwKWNqKcEvbN FyfX0= [facility] Work Phone: [facility] Work Phone: [facility]- DERMATOPATHOLOGY Pathology report.total SEE COMMENT Dermatopathology Case: [id number] Authorizing Provider: Cesar Broderick MD Collected: 05/21/2024 1058 Ordering Location: [facility] Received: 05/21/2024 1211 Pathologist: Lois Castanon MD [...] Diagnosis: Neoplasm of uncertain behavior of skin [id number] A Collection Comments: Differential Diagnosis: r/o SCCIS, adjacent to ED&C scar Check Margins Yes/No?: Comments: Dermpath Lab: Routine Histopathology (formalin-fixed tissue) Finding Region: Left Elbow - Posterior Specimen Objective: 5 mm pink hyperkeratotic papule adjacent to scar [id number] B Collection Comments: Differential Diagnosis: r/o SCC Check Margins Yes/No?: Comments: Dermpath Lab: Routine Histopathology (formalin-fixed tissue) Finding Region: Right Forearm - Posterior Specimen Objective: 3 mm pink scaly papule [id number] C Collection Comments: Differential Diagnosis: r/o dysplastic [...] specimen is inked and embedded in toto. [facility] Destr of lesionon 05-21-2024 Complexity: simple Destruction method: cryotherapy Informed consent: discussed and consent obtained Lesion destroyed using liquid nitrogen: Yes Cryotherapy cycles: 1 Outcome: patient tolerated procedure well with no complications Post-procedure details: wound care instructions given [facility] Work Phone: [facility] Work Phone: Shave removalon 05-21-2024 Lesion [...] instructions given Dressing type: bandage and petrolatum [facility] Work Phone: [facility] Work Phone: Lesion length (cm): 0.6 [...] instructions given Dressing type: bandage and petrolatum [facility] Work Phone: [facility] Work Phone: Lesion length (cm): 0.7 [...] care instructions given Dressing [facility]: [facility] Work Phone: [facility] Work Phone: US RENAL COMPLETEon 04-08-20 24 US RENAL COMPLETE Interpreted By: Mirna Mosley, STUDY: US RENAL COMPLETE; 04/08/2024 3:20 pm INDICATION: Signs/Symptoms:CKD. COMPARISON: None. ACCESSION NUMBER(S): [id number] ORDERING CLINICIAN: BOBBY TRACEY TECHNIQUE: Multiple images of the kidneys were obtained. FINDINGS: RIGHT KIDNEY: 11.7 cm in length. No hydronephrosis. No focal renal abnormality. LEFT KIDNEY: 11 cm in length. No hydronephrosis. No focal renal abnormality. BLADDER: Unremarkable for degree of distention. IMPRESSION: No focal renal abnormality or hydronephrosis. Signed by: Mirna Figueroa 04/09/2024 7:08 PM Dictation workstation: [id number] Normal [facility] Basic metabolic 2000 panelon 11-09-2023 Anion gap [Moles/Vol] 15 mmol/L Normal - [facility] Comment on above: Performed By: #### 2 8175-2 #### TAMMIE LARES ([id number]) [facility] ([facility]) [address] [place] [address] Calcium [Mass/Vol] 8.3 mg/dL Low 8.6-10.3 [facility] Comment on above: Performed By: #### 2 4321-2 #### TAMMIE LARES ([id number]) [facility] ([facility]) [address] [place] [address] Chloride [Moles/Vol] 102 mmol/L Normal 98-107 [facility] Comment on above: Performed By: #### 2 4321-2 #### TAMMIE LARES ([id number]) [facility] ([facility]) [address] [place] [address] CO2 [Moles/Vol] 22 mmol/L Normal 21-32 [facility] Comment on above: Performed By: #### 2 4321-2 #### TAMMIE LARES ([id number]) [facility] ([facility]) [address] [place] [address] Creatinine [Mass/Vol] 1.97 mg/dL High 0.50-1.30 [facility] Comment on above: Performed By: #### 2 4321-2 #### TAMMIE LARES ([id number]) [facility] ([facility]) [address] [place] [address] Glomerular filtration rate/1.73 sq M.predicted 38 mL/min/1.73m*2 Low >60 [facility] Comment on above: Result Comment: Calc ulations of estimated GFR are performed using the 2020 CKD-EPI Study Refit equation without the race variable for the IDMS-Traceable creatinine methods. https://jasn.asnjournals.org/content//ASN.0085823 988 Performed By: #### 2 4321-2 #### TAMMIE LARES ([id number]) [facility] ([facility]) [address] [place] [address] Glucose [Mass/Vol] 263 mg/dL High 74-99 [facility] Comment on above: Performed By: #### 2 4321-2 #### TAMMIE LARES ([id number]) [facility] ([facility]) [address] [place] [address] Potassium [Moles/Vol] 5.3 mmol/L Normal 3.5-5.3 [facility] Comment on above: Performed By: #### 2 1-2 #### TAMMIE LARES ([id number]) [facility] ([facility]) [address] [place] [address] Sodium [Moles/Vol] 134 mmol/L Low 136-145 [facility] Comment on above: Performed By: #### 2 4320-2 #### TAMMIE LARES ([id number]) [facility] ([facility]) [address] [place] [address] Urea nitrogen [Mass/Vol] 34 mg/dL High 6-23 [facility] Comment on above: Performed By: #### 2 4320-2 #### TAMMIE LARES ([id number]) [facility] ([facility]) [address] [place], [place] [id number] CBC W Auto Differential pane l (Bld)on 11-09-2023 Basophils (Bld) [#/Vol] 0.11 x10*3/uL High 0.00-0.10 [facility] Comment on above: Performed By: #### 5 7021-8 #### TAMMIE LARES ([id number]) [facility] ([facility]) [address] [place] [id number] Basophils/100 WBC (Bld) 1.1 % Normal 0.0-2.0 [facility] Comment on above: Performed By: #### 5 7021-8 #### TAMMIE LARES ([id number]) [facility] ([facility]) [address] [place] [id number] Eosinophils (Bld) [#/Vol] 0.43 x10*3/uL Normal 0.00-0.70 [facility] Comment on above: Performed By: #### 5 7021-8 #### TAMMIE LARES ([id number]) [facility] ([facility]) [address] [place] [address] Eosinophils/100 WBC (Bld) 4.2 % Normal 0.0-6.0 [facility] Comment on above: Performed By: #### 5 7021-8 #### TAMMIE LARES ([id number]) [facility] ([facility]) [address] [place] [address] Erythrocyte distribution width (RBC) [Ratio] 13.1 % Normal 11.5-14.5 [facility] Comment on above: Performed By: #### 5 7021-8 #### TAMMIE LARES ([id number]) [facility] ([facility]) [address] [place] [address] Hematocrit (Bld) [Volume fraction] 34.4 % Low 41.0-52.0 [facility] Comment on above: Performed By: #### 5 7021-8 #### TAMMIE LARES ([id number]) [facility] ([facility]) [address] [place] [phone] Hemoglobin (Bld) [Mass/Vol] 10.9 g/dL Low 13.5-17.5 [facility] Comment on above: Performed By: #### 5 7021-8 #### TAMMIE LARES ([id number]) [facility] ([facility]) [address] [place] [phone] Immature granulocytes (Bld) [#/Vol] 0.09 x10*3/uL Normal 0.00-0.70 [facility] Comment on above: Performed By: #### 5 7021-8 #### TAMMIE LARES ([id number]) [facility] ([facility]) [address] [place] [phone] Immature granulocytes/100 WBC (Bld) 0.9 % Normal 0.0-0.9 [facility] Comment on above: Result Comment: Traci ture Granulocyte Count (IG) includes promyelocytes, myelocytes and metamyelocytes but does not include bands. Percent differential counts (%) should be interpreted in the context of the absolute cell counts (cells/UL). Performed By: #### 5 7021-8 #### TAMMIE LARES ([id number]) [facility] ([facility]) [address] [place] [address] Lymphocytes (Bld) [#/Vol] 2.71 x10*3/uL Normal 1.20-4.80 [facility] Comment on above: Performed By: #### 5 7021-8 #### TAMMIE LARES ([id number]) [facility] ([facility]) [address] [place] [address] Lymphocytes/100 WBC (Bld) 26.8 % Normal 13.0-44.0 [facility] Comment on above: Performed By: #### 5 7021-8 #### TAMMIE LARES ([id number]) [facility] ([facility]) [address] [place] [address] MCH (RBC) [Entitic mass] 30.4 pg Normal 26.0-34.0 [facility] Comment on above: Performed By: #### 5 7021-8 #### TAMMIE LARES ([id number]) [facility] ([facility]) [address] [place] [address] MCHC (RBC) [Mass/Vol] 31.7 g/dL Low 32.0-36.0 [facility] Comment on above: Performed By: #### 5 7021-8 #### TAMMIE LARES ([id number]) [facility] ([facility]) [address] [place] [address] MCV (RBC) [Entitic vol] 96 fL Normal 80-100 [facility] Comment on above: Performed By: #### 5 7021-8 #### TAMMIE LARES ([id number]) [facility] ([facility]) [address] [place] [address] Monocytes (Bld) [#/Vol] 0.84 x10*3/uL Normal 0.10-1.00 [facility] Comment on above: Performed By: #### 5 7021-8 #### TAMMIE LARES ([id number]) [facility] ([facility]) [address] [place] [address] Monocytes/100 WBC (Bld) 8.3 % Normal 2.0-10.0 [facility] Comment on above: Performed By: #### 5 7021-8 #### TAMMIE LARES ([id number]) [facility] ([facility]) [address] [place] [address] Neutrophils (Bld) [#/Vol] 5.94 x10*3/uL Normal 1.20-7.70 [facility] Comment on above: Result Comment: Perc ent differential counts (%) should be interpreted in the context of the absolute cell counts (cells/uL). Performed By: #### 5 7021-8 #### TAMMIE LARES ([id number]) [facility] ([facility]) [address] [place] [address] Neutrophils/100 WBC (Bld) 58.7 % Normal 40.0-80.0 [facility] Comment on above: Performed By: #### 5 7021-8 #### TAMMIE LARES ([id number]) [facility] ([facility]) [address] [place] [address] Nucleated RBC/100 WBC (Bld) [Ratio] 0.0 /100 WBCs Normal 0.0-0.0 [facility] Comment on above: Performed By: #### 5 7021-8 #### TAMMIE LARES ([id number]) [facility] ([facility]) [address] [place] [address] Platelets (Bld) [#/Vol] 430 x10*3/uL Normal 150-450 [facility] Comment on above: Performed By: #### 5 7021-8 #### TAMMIE LARES ([id number]) [facility] ([facility]) [address] [place] [address] RBC (Bld) [#/Vol] 3.58 x10*6/uL Low 4.50-5.90 [facility] Comment on above: Performed By: #### 5 7021-8 #### TAMMIE LARES ([id number]) [facility] ([facility] [facility]) [address] [place] [address] WBC (Bld) [#/Vol] 10.1 x10*3/uL Normal 4.4-11.3 [facility] Comment on above: Performed By: #### 5 7021-8 #### TAMMIE LARES ([id number]) [facility] ([facility]) [address] [place] [address] Basic metabolic 2000 panelon 10-03-2023 Anion gap [Moles/Vol] 9 mmol/L Normal 8-15 [facility] Comment on above: Order Comment: Speci men Type: BLOOD SPECIMEN Ordering Facility: [facility] Address: [address] [place] [address] Performed By: #### H STNT, 15950-1 #### [facility] CLIA [id number] [address] [place] [address] [place] Calcium [Mass/Vol] 8.9 mg/dL Normal 8.5-10.2 [facility] Comment on above: Order Comment: Speci men Type: BLOOD SPECIMEN Ordering Facility: [facility] Address: [address] [address] Performed By: #### H STNT, 34842-1 #### [facility] CLIA [id number] [address] [place] [address] [place] Chloride [Moles/Vol] 106 mmol/L Normal 98-107 [facility] Comment on above: Order Comment: Speci men Type: BLOOD SPECIMEN Ordering Facility: [facility] Address: [address] [address] Performed By: #### H STNT, 03214-2 #### [facility] CLIA [id number] [address] [place] [address] [place] CO2 [Moles/Vol] 21 mmol/L Low 22-30 [facility] Comment on above: Order Comment: Speci men Type: BLOOD SPECIMEN Ordering Facility: [facility] Address: [address] [address] Performed By: #### H STNT, 72555-8 #### [facility] CLIA [id number] [address] [place] [address] [place] Creatinine [Mass/Vol] 1.73 mg/dL High 0.73-1.22 [facility] Comment on above: Order Comment: Wayne medrano Type: BLOOD SPECIMEN Ordering Facility: [facility] Address: [address] [place] [address] Performed By: #### H STNT, 23670-7 #### [facility] CLIA [id number] [address] [place] [address] [place] Creatinine and Glomerular filtration rate.predicted panel (S/P/Bld) 45 mL/min/1.73m??? Low >=60 [facility] Comment on above: Order Comment: Wayne medrano Type: BLOOD SPECIMEN Ordering Facility: [facility] Address: [address] [place] [address] Result Comment: Shr[facility] Glomerular Filtration Rate (eGFR) is calculated using [...] actual GFR. Performed By: #### H STNT, 53962-1 #### [facility] CLIA [id number] [address] [place] [address] [place] Glucose [Mass/Vol] 93 mg/dL Normal 74-99 [facility] Comment on above: Order Comment: Wayne medrano Type: BLOOD SPECIMEN Ordering Facility: [facility] Address: [address] [place] [address] Result Comment: The [place] [employer] (ADA) provides guidance for cutoff [...] Standards of Medical Care in Diabetes 2016, [place] [employer]. Diabetes Care. 2016.39(Suppl 1). Performed By: #### H STNT, 60952-8 #### [facility] CLIA [id number] [address] [place] [address] [place] Potassium [Moles/Vol] 5.0 mmol/L Normal 3.7-5.1 [facility] Comment on above: Order Comment: Speci men Type: BLOOD SPECIMEN Ordering Facility: [facility] Address: [address] [address] Performed By: #### H STNT, 08946-4 #### [facility] CLIA [id number] [address] [place] [address] [place] Sodium [Moles/Vol] 136 mmol/L Normal 136-144 [facility] Comment on above: Order Comment: Speci men Type: BLOOD SPECIMEN Ordering Facility: [facility] Address: [address] [address] Performed By: #### H STNT, 11198-0 #### [facility] CLIA [id number] [address] [place] [address] [place] Urea nitrogen [Mass/Vol] 23 mg/dL Normal 9-24 [facility] Comment on above: Order Comment: Speci men Type: BLOOD SPECIMEN Ordering Facility: [facility] Address: [address] [address] Performed By: #### H STNT, 48019-3 #### [facility] CLIA [id number] [address] [place] [address] [place] CBC W Auto Differential pane l (Bld)on 10-03-2023 Basophils (Bld) [#/Vol] 0.11 10*3/uL High <0.11 [facility] Comment on above: Order Comment: Speci men Type: BLOOD SPECIMEN Ordering Facility: [facility] Address: [address] [address] Performed By: #### 5 7021-8 #### [facility] CLIA [id number] [address] [place] [address] [place] Basophils/100 WBC (Bld) 1.0 % Normal [facility] Comment on above: Order Comment: Speci men Type: BLOOD SPECIMEN Ordering Facility: [facility] Address: [facility] [place] [address] Performed By: #### 5 7021-8 #### [facility] CLIA [id number] [address] [place] [address] [place] Differential cell count method Nom (Bld) Auto Normal [facility] Comment on above: Order Comment: Speci men Type: BLOOD SPECIMEN Ordering Facility: [facility] Address: [address] [address] Performed By: #### 5 7021-8 #### [facility] CLIA [id number] [address] [place] [address] [place] Eosinophils (Bld) [#/Vol] 0.21 10*3/uL Normal <0.46 [facility] Comment on above: Order Comment: Speci men Type: BLOOD SPECIMEN Ordering Facility: [facility] Address: [address] [address] Performed By: #### 5 7021-8 #### [facility] CLIA [id number] [address] [place] [address] [place] Eosinophils/100 WBC (Bld) 2.0 % Normal [facility] Comment on above: Order Comment: Speci men Type: BLOOD SPECIMEN Ordering Facility: [facility] Address: [address] [address] Performed By: #### 5 7021-8 #### [facility] CLIA [id number] [address] [place] [address] [place] Erythrocyte distribution width (RBC) [Ratio] 13.4 % Normal 11.5-15.0 [facility] Comment on above: Order Comment: Speci men Type: BLOOD SPECIMEN Ordering Facility: [facility] Address: [address] [address] Performed By: #### 5 7021-8 #### [facility] CLIA [id number] [address] [place] [address] [place] Hematocrit (Bld) [Volume fraction] 26.1 % Low 39.0-51.0 [facility] Comment on above: Order Comment: Speci men Type: BLOOD SPECIMEN Ordering Facility: [facility] Address: [address] [address] Performed By: #### 5 7021-8 #### [facility] CLIA [id number] [address] [place] [address] [place] Hemoglobin (Bld) [Mass/Vol] 8.5 g/dL Low 13.0-17.0 [facility] Comment on above: Order Comment: Speci men Type: BLOOD SPECIMEN Ordering Facility: [facility] Address: [address] [address] Performed By: #### 5 7021-8 #### [facility] CLIA [id number] [address] [place] [address] [place] Immature granulocytes (Bld) [#/Vol] 0.06 10*3/uL Normal <0.10 [facility] Comment on above: Order Comment: Speci men Type: BLOOD SPECIMEN Ordering Facility: [facility] Address: [address] [address] Performed By: #### 5 7021-8 #### [facility] CLIA [id number] [address] [place] [address] [place] Immature granulocytes/100 WBC (Bld) 0.6 % Normal [facility] Comment on above: Order Comment: Speci men Type: BLOOD SPECIMEN Ordering Facility: [facility] Address: [address] [address] Performed By: #### 5 7021-8 #### [facility] CLIA [id number] [address] [place] [address] [place] Lymphocytes (Bld) [#/Vol] 1.68 10*3/uL Normal 1.00-4.00 [facility] Comment on above: Order Comment: Speci men Type: BLOOD SPECIMEN Ordering Facility: [facility] Address: [address] [address] Performed By: #### 5 7021-8 #### [facility] CLIA [id number] [address] [place] [address] [place] Lymphocytes/100 WBC (Bld) 15.9 % Normal [facility] Comment on above: Order Comment: Speci men Type: BLOOD SPECIMEN Ordering Facility: [facility] Address: [address] [address] Performed By: #### 5 7021-8 #### [facility] CLIA [id number] [address] [place] [address] [place] MCH (RBC) [Entitic mass] 30.4 pg Normal 26.0-34.0 [facility] Comment on above: Order Comment: Speci men Type: BLOOD SPECIMEN Ordering Facility: [facility] Address: [address] [address] Performed By: #### 5 7021-8 #### [facility] IA [id number] [address] [place] [address] [place] MCHC (RBC) [Mass/Vol] 32.6 g/dL Normal 30.5-36.0 [facility] Comment on above: Order Comment: Speci men Type: BLOOD SPECIMEN Ordering Facility: [facility] Address: [address] [address] Performed By: #### 5 7021-8 #### [facility] IA [id number] [address] [place] [address] [place] MCV (RBC) [Entitic vol] 93.2 fL Normal 80.0-100.0 [facility] Comment on above: Order Comment: Speci men Type: BLOOD SPECIMEN Ordering Facility: [facility] Address: [address] [address] Performed By: #### 5 7021-8 #### [facility] IA [id number] [address] [place] [address] [place] Monocytes (Bld) [#/Vol] 0.62 10*3/uL Normal <0.87 [facility] Comment on above: Order Comment: Speci men Type: BLOOD SPECIMEN Ordering Facility: [facility] Address: [address] [address] Performed By: #### 5 7021-8 #### [facility] CLIA [id number] [address] [place] [address] [place] Monocytes/100 WBC (Bld) 5.9 % Normal [facility] Comment on above: Order Comment: Speci men Type: BLOOD SPECIMEN Ordering Facility: [facility] Address: [address] [address] Performed By: #### 5 7021-8 #### [facility] CLIA [id number] [address] [place] [address] [place] Neutrophils (Bld) [#/Vol] 7.91 10*3/uL High 1.45-7.50 [facility] Comment on above: Order Comment: Speci men Type: BLOOD SPECIMEN Ordering Facility: [facility] Address: [address] [address] Performed By: #### 5 7021-8 #### [facility] CLIA [id number] [address] [place] [address] [place] Neutrophils/100 WBC (Bld) 74.6 % Normal [facility] Comment on above: Order Comment: Speci men Type: BLOOD SPECIMEN Ordering Facility: [facility] Address: [address] [address] Performed By: #### 5 7021-8 #### [facility] CLIA [id number] [address] [place] [address] [place] Nucleated RBC (Bld) [#/Vol] 10*3/uL Normal <0.01 [facility] Comment on above: Order Comment: Speci men Type: BLOOD SPECIMEN Ordering Facility: [facility] Address: [address] [address] Performed By: #### 5 7021-8 #### [facility] CLIA [id number] [address] [place] [address] [place] Nucleated RBC/100 WBC (Bld) [Ratio] 0.0 /100 WBC Normal [facility] Comment on above: Order Comment: Speci men Type: BLOOD SPECIMEN Ordering Facility: [facility] Address: [address] [address] Performed By: #### 5 7021-8 #### [facility] CLIA [id number] [address] [place] [address] [place] Platelet mean volume (Bld) [Entitic vol] 9.5 fL Normal 9.0-12.7 [facility] Comment on above: Order Comment: Speci men Type: BLOOD SPECIMEN Ordering Facility: [facility] Address: [address] [address] Performed By: #### 5 7021-8 #### [facility] CLIA [id number] [address] [place] [address] [place] Platelets (Bld) [#/Vol] 438 10*3/uL High 150-400 [facility] Comment on above: Order Comment: Speci men Type: BLOOD SPECIMEN Ordering Facility: [facility] Address: [address] [address] Performed By: #### 5 7021-8 #### [facility] CLIA [id number] [address] [place] [address] [place] RBC (Bld) [#/Vol] 2.80 10*6/uL Low 4.20-6.00 [facility] Comment on above: Order Comment: Speci men Type: BLOOD SPECIMEN Ordering Facility: [facility] Address: [address] [address] Performed By: #### 5 7021-8 #### [facility] CLIA [id number] [address] [place] [address] [place] WBC (Bld) [#/Vol] 10.59 10*3/uL Normal 3.70-11.00 [facility] Comment on above: Order Comment: Speci men Type: BLOOD SPECIMEN Ordering Facility: [facility] Address: [address] [address] Performed By: #### 5 7021-8 #### [facility] CLIA [id number] [address] [place] [id number] [place] ECG COMPLETEon 10-03-2023 ECG COMPLETE Ventricular Rate : 5 3 BPM Atrial Rate : 53 BPM P-R Interval : 158 ms QRS Duration : 100 ms Q-T Interval : 454 ms QTC Calculation(Bazett) : 426 ms Calculated P Marcella : 63 degrees Calculated R Marcella : 58 degrees Calculated T Marcella : 67 degrees SINUS BRADYCARDIA OTHERWISE NORMAL ECG NO PREVIOUS ECGS AVAILABLE CONFIRMED 1105 Confirmed by MD ESPINOSA JASON ([id number]), editor book MAXIMILIAN CHA ([id number]) on 10/04/2023 7:51:20 AM NAME : CIRO HAWKINS PID : [id number] : 1965 Gender : Male Race : ORD : [id number] Procedure Date : Oct 03 2023 11:03:33 Edit Date : Oct 04 2023 07:51:22 Diagnosis: SINUS BRADYCARDIA OTHERWISE NORMAL ECG NO PREVIOUS ECGS AVAILABLE CONFIRMED 1105 Confirmed by MD EPSINOSA JASON (), editor book MAXIMILIAN CHA ([id number]) on 10/04/2023 7:51:20 AM Test Reason : Chest Pain Location : 26 : ER L Overread By : MD ESPINOSA JASON Edited By : MAXIMILIAN CHA Referred By : , Acquired by : [id number], [facility] ED NOTEon 10-03-2023 ED NOTE HNO ID: [id number] Author: YULY TROY RN Service: ? Author [...] patient is leaving and signed AMA paperwork. [facility] ED NOTE HNO ID: [id number] Author: YULY TROY, RN Service: ? Author Type: Registered Nurse Type: ED Notes Filed: 10/03/2023 20:54 Note Text: [facility] ED NOTE HNO ID: [id number] Author: OKSANA BRONSON, STEVEN Service: ? Author Type: Registered Nurse Type: ED Notes Filed: 10/03/2023 20:02 Note Text: Patient requesting to leave. RN told patient that it would be against medical advice. aware [facility] ED NOTE HNO ID: [id number] Author: YULY TROY RN Service: ? Author Type: Registered Nurse Type: ED Notes Filed: 10/03/2023 18:32 Note Text: Contacted pharmacy to get labetalol. [facility] ED NOTE HNO ID: [id number] Author: PRECIOUS SETH RN Service: Nursing Author Type: Registered Nurse Type: ED Notes Filed: 10/03/2023 10:53 Note Text: Pt arrived to ED with elevated BP. Pt was about 180/80 at independent living. He recently had a change to BP medication. [facility] ED PROV NOTEon 10-03-2023 ED PROV NOTE HNO ID: [id number] Author: RAEANN GOINS DO Service: Emergency Medicine [...] 104.3 kg (230 lb) 1.778 m (5' 10) Physical Exam Vitals and nursing note reviewed. [...] CONFIRMED 1105 Confirmed by MD ESPINOSA JASON ([id number]), editor book MAXIMILIAN CHA ([id number]) on 10/04/2023 7:51:20 AM Procedures ED Course [...] oncoming physician. History (more content not included)... [facility] ED PROV NOTE HNO ID: [id number] Author: GISEL LUZ, DO Service: ? Author [...] 5:11 PM PAGER/CONTACT #: GISEL LUZ 10/03/23 [phone] [facility] ED Triage Noteon 10-03-2023 ED Triage Note HNO ID: [id number] Author: BRYAN GILL MD Service: Emergency Medicine [...] bedside clinician. SIGNATURE: Bryan Gill MD Normal [facility] HIGH SENSITIVITY TROPONIN To n 10-03-2023 Troponin T.cardiac High sensitivity method [Mass/Vol] 62 ng/L High <[address] [place] [address] Comment on above: Order Comment: Wayne medrano Type: BLOOD SPECIMEN Ordering Facility: [facility] Address: [address] [address] Result Comment: When assessing risk for acute [...] day MACE. Performed By: #### H STNT, 85878-7 #### [facility] CLIA [id number] [address] [place] [address] [place] HIGH SENSITIVITY TROPONIN T (INITIAL)on 10-03-2023 Troponin T.cardiac High sensitivity method [Mass/Vol] 61 ng/L High [address] Comment on above: Order Comment: Wayne medrano Type: BLOOD SPECIMENOrdering Facility: [facility] Address: [address] [address] Result Comment: When assessing risk for acute [...] 30 day MACE. Performed By: #### L [id number] ####[facility] [id number] [place] [address] [place] HIGH SENSITIVITY TROPONIN T (SECOND)on 10-03-2023 Troponin T.cardiac High sensitivity method [Mass/Vol] 59 ng/L High <12 [facility] Comment on above: Order Comment: Speci men Type: BLOOD SPECIMENOrdering Facility: [facility] Address: [address] [place] [address] Result Comment: When assessing risk for acute [...] 30 day MACE. Performed By: #### L [id number] ####[facility] [id number] [address] Skin excisionon 10-02-2023 Lesion length (cm): 1.2 [...] excision or Mohs surgery at that time. [facility] Work Phone: [facility] Work Phone: Lesion length (cm): 1.8 [...] excision or Mohs surgery at that time. [facility] Work Phone: [facility] Work Phone: Basic metabolic 2000 panelon 09-21-2023 Anion gap [Moles/Vol] 12 mmol/L Normal 10-20 [facility] Comment on above: Performed By: #### 2 1-2 #### CHRISTIANO Velasquez ([id number]) [facility] ([facility]) [address] [place] [address] 81057 Calcium [Mass/Vol] 8.7 mg/dL Normal 8.6-10.6 [facility] Comment on above: Performed By: #### 2 4321-2 #### CHRISTIANO Velasquez ([id number]) [facility] ([facility]) [address] [place] [address] 10270 Chloride [Moles/Vol] 109 mmol/L High 98-107 [facility] Comment on above: Performed By: #### 2 4321-2 #### CHRISTIANO FORD L ([id number]) [facility] ([facility]) [address] [place] [address] 25067 CO2 [Moles/Vol] 23 mmol/L Normal 21-32 [facility] Comment on above: Performed By: #### 2 4321-2 #### CHRISTIANO FORD L ([id number]) [facility] ([facility]) [address] [place] [address] 54163 Creatinine [Mass/Vol] 1.80 mg/dL High 0.50-1.30 [facility] Comment on above: Performed By: #### 2 1-2 #### CHRISTIANO Velasquez ([id number]) [facility] ([facility]) [id number] [place] [address] 94343 Glomerular filtration rate/1.73 sq M.predicted 43 mL/min/1.73m*2 Low >60 [facility] Comment on above: Result Comment: Calc ulations of estimated GFR are performed using the 2020 CKD-EPI Study Refit equation without the race variable for the IDMS-Traceable creatinine methods. https://jasn.asnjournals.org/content/early//ASN.7499191 988 Performed By: #### 2 4321-2 #### CHRISTIANO Velasquez ([id number]) [facility] ([facility]) [address] [place] [address] 62830 Glucose [Mass/Vol] 175 mg/dL High 74-99 [facility] Comment on above: Performed By: #### 2 4321-2 #### CHRISTIANO FORD L ([id number]) [facility] ([facility]) [address] [place] [address] 66367 Potassium [Moles/Vol] 5.2 mmol/L Normal 3.5-5.3 [facility] Comment on above: Performed By: #### 2 4321-2 #### CHRISTIANO CHEEKMOJOEL L ([id number]) [facility] ([facility]) [address] [place] [address] 90417 Sodium [Moles/Vol] 139 mmol/L Normal 136-145 [facility] Comment on above: Performed By: #### 2 4321-2 #### CHRISTIANO CHEEKMOJOEL L ([id number]) [facility] ([facility]) [address] [place] [address] 39396 Urea nitrogen [Mass/Vol] 31 mg/dL High 6-23 [facility] Comment on above: Performed By: #### 2 4321-2 #### CHRISTIANO FORD L ([id number]) [facility] ([facility]) [address] [place] [address] 06864 CBC W Auto Differential pane l (Bld)on 09-21-2023 Basophils (Bld) [#/Vol] 0.10 x10*3/uL Normal 0.00-0.10 [facility] Comment on above: Performed By: #### 5 7021-8 #### CHRISTIANO Velasquez ([id number]) [facility] ([facility]) [address] [place] [address] 52292 Basophils/100 WBC (Bld) 1.0 % Normal 0.0-2.0 [facility] Comment on above: Performed By: #### 5 7021-8 #### CHRISTIANO Velasquez ([id number]) [facility] ([facility]) [address] [place] [address] 38954 Eosinophils (Bld) [#/Vol] 1.01 x10*3/uL High 0.00-0.70 [facility] Comment on above: Performed By: #### 5 7021-8 #### CHRISTIANO Velasquez ([id number]) [facility] ([facility]) [address] [place] [address] 57913 Eosinophils/100 WBC (Bld) 9.9 % Normal 0.0-6.0 [facility] Comment on above: Performed By: #### 5 7021-8 #### CHRISTIANO Velasquez ([id number]) [facility] ([facility]) [address] [place] [address] 44353 Erythrocyte distribution width (RBC) [Ratio] 14.3 % Normal 11.5-14.5 [facility] Comment on above: Performed By: #### 5 7021-8 #### CHRISTIANO Velasquez ([id number]) [facility] ([facility]) [address] [place] [address] 03179 Hematocrit (Bld) [Volume fraction] 27.5 % Low 41.0-52.0 [facility] Comment on above: Performed By: #### 5 7021-8 #### CHRISTIANO Velasquez ([id number]) [facility] ([facility]) [address] [place] [address] 30583 Hemoglobin (Bld) [Mass/Vol] 8.8 g/dL Low 13.5-17.5 [facility] Comment on above: Performed By: #### 5 7021-8 #### CHRISTIANO Velasquez ([id number]) [facility] ([facility]) [address] [place] [address] 28442 Immature granulocytes (Bld) [#/Vol] 0.03 x10*3/uL Normal 0.00-0.70 [facility] Comment on above: Performed By: #### 5 7021-8 #### CHRISTIANO FORD L ([id number]) [facility] ([facility]) [address] [place] [address] 66513 Immature granulocytes/100 WBC (Bld) 0.3 % Normal 0.0-0.9 [facility] Comment on above: Result Comment: Traci ture Granulocyte Count (IG) includes promyelocytes, myelocytes and metamyelocytes but does not include bands. Percent differential counts (%) should be interpreted in the context of the absolute cell counts (cells/UL). Performed By: #### 5 7021-8 #### CHRISTIANO Velasquez ([id number]) [facility] ([facility]) [address] [place] [address] 49604 Lymphocytes (Bld) [#/Vol] 1.80 x10*3/uL Normal 1.20-4.80 [facility] Comment on above: Performed By: #### 5 7021-8 #### CHRISTIANO Velasquez ([id number]) [facility] ([facility]) [address] [place] [address] 26307 Lymphocytes/100 WBC (Bld) 17.7 % Normal 13.0-44.0 [facility] Comment on above: Performed By: #### 5 7021-8 #### CHRISTIANO Velasquez ([id number]) [facility] ([facility]) [address] [place] [address] 01418 MCH (RBC) [Entitic mass] 30.2 pg Normal 26.0-34.0 [facility] Comment on above: Performed By: #### 5 7021-8 #### CHRISTIANO FORD L ([id number]) [facility] ([facility]) [address] [place] [address] MCHC (RBC) [Mass/Vol] 32.0 g/dL Normal 32.0-36.0 [facility] Comment on above: Performed By: #### 5 7021-8 #### CHRISTIANO Velasquez ([id number]) [facility] ([facility]) [id number] [place] [address] 30536 MCV (RBC) [Entitic vol] 95 fL Normal 80-100 [facility] Comment on above: Performed By: #### 5 7021-8 #### CHRISTIANO Velasquez ([id number]) [facility] ([facility]) [id number] [place] [address] 62601 Monocytes (Bld) [#/Vol] 0.75 x10*3/uL Normal 0.10-1.00 [facility] Comment on above: Performed By: #### 5 7021-8 #### CHRISTIANO Velasquez ([id number]) [facility] ([facility]) [id number] [place] [address] 54688 Monocytes/100 WBC (Bld) 7.4 % Normal 2.0-10.0 [facility] Comment on above: Performed By: #### 5 7021-8 #### CHRISTIANO Velasquez ([id number]) [facility] ([facility]) [id number] [place] [address] 41054 Neutrophils (Bld) [#/Vol] 6.47 x10*3/uL Normal 1.20-7.70 [facility] Comment on above: Result Comment: Perc ent differential counts (%) should be interpreted in the context of the absolute cell counts (cells/uL). Performed By: #### 5 7021-8 #### CHRISTIANO Velasquez ([id number]) [facility] ([facility]) [address] [place] [address] Neutrophils/100 WBC (Bld) 63.7 % Normal 40.0-80.0 [facility] Comment on above: Performed By: #### 5 7021-8 #### CHRISTIANO Velasquez ([id number]) [facility] ([facility]) [address] [place] [address] Nucleated RBC/100 WBC (Bld) [Ratio] 0.0 /100 WBCs Normal 0.0-0.0 [facility] Comment on above: Performed By: #### 5 7021-8 #### CHRISTIANO Velasquez ([id number]) [facility] ([facility]) [id number] [place] [address] 66239 Platelets (Bld) [#/Vol] 383 x10*3/uL Normal 150-450 [facility] Comment on above: Performed By: #### 5 7021-8 #### CHRISTIANO Velasquez ([id number]) [facility] ([facility]) [address] [place] [address] 20821 RBC (Bld) [#/Vol] 2.91 x10*6/uL Low 4.50-5.90 [facility] Comment on above: Performed By: #### 5 7021-8 #### CHRISTIANO Velasquez ([id number]) [facility] ([facility]) [address] [place] [address] 73207 WBC (Bld) [#/Vol] 10.2 x10*3/uL Normal 4.4-11.3 [facility] Comment on above: Performed By: #### 5 7021-8 #### CHRISTIANO Velasquez ([id number]) [facility] ([facility]) [id number] [place] [address] 86950 Dermatopathology- DERM LABOr dered By: Martha Lima on 09-04-2023 Laboratory comment Sammy (Report) f1gptOVqQFOfu6lvMXFnzWKaRaQ wMzNcZnRuYmpcdWMxIHtccnRmMV yzw3LeT6QgKlUhHFldcqWaNPFfA rdzczzbHDXyNYX7jsVdSDYgRWeh UHMhYAtgVm6rjBYptWxbViDlOAS tg2qeafPGEZmxKHPJFFx2m3wvBB EhKyX4aNEwAAzzW3esfhWulMCcJ 1Zel1ToQEl7eZ51HQHzzL4heAQm JWmrlgAjFhB4NQsnDDQgWhJ6WCY lnSFcWPKyQ7pvBMHgDSlzUDAwOC rwwFClYBY5wLpvk6N4eTExeFHhi NwfRuSeQzRcDeHLg1ZoQLe8zZiy S0AcVZGaXrB8sTJuYOGhOBqpTOD qCAXmecH1eZ55OGaijbP1tBWqa9 Iyl78rc348wF2pwTYiFMS5WNGnY ZZwsAVdBKLhNOE7CSFibMGhD5fw RoQeuDVbE5YaXvFvnXNlE3MkKxB srDVmC7ZwPvVydFErNOIrlNA1UV xcp519ESX4FpTpLV2bD5Qhh9P9e A4aeRWdLXBduLZvHfVjISVudl6s dNTpJJazp2FeYQI5qjG9xNPosBH xMJRqQD69Yuuzp2MrTysmEEL4QB TymiDfo6Fxm4chGtZuedNfV1mgE 3NaTWSlTWQbQEFeGyLytpTbm1Rd k2NzlTPzwIr3p1czALPfOABhxFt uk9etNCE2JHUcM1L9lMTik4mrQS qqRJVzbQF5exG5SMmuMTHepyW5e tC1UFleOEDifSB4cgZ8USajDOEv LmZ8irZ4BSczDFAqKOS3DaGsSAF ua3ZpuwglVyOnk4QvbGCuDSpyU1 8hd100NZQletNqE3uckADyrojrx PYnzyciWFoclcA8NASuBNBqMKqc XGYxXGZzMjBcbGFuZzEwMzNcaGl imJyuZCpiQwMxAKElRSxcV8ykIj WkIbGkFIGAgFE1kJIaz1hiyiA3c IExFW6rTPTitRNvlfNbo1U9CYS8 eFRwkB7shKCeHILwbVGpxpGmln5 5xGWmwEA2QVLdVEYznQZfsO0jLZ RiZMDPaG9cxIJSfdUccoQeBTXdb Xvhbd8OdAIztc9wtUPjW3IztFta aWVzIHRoYXQgdGhleSBoYXZlIHJ hgjpqv7LtYKFjeMTdJ2JvHV2iLC Bhcn19 [facility] Work Phone: Pathology report Cancer Narrative Dermatopathology Case: [id number] Authorizing Provider: Aristeo Brock MD Collected: 08/31/202357 Ordering Location: [facility] Received: 08/31/2023 1209 Pathologist: Martha Lima MD Specimens: A) - SKIN, Left Wrist - Posterior B) - SKIN, Left Hand - Posterior C) - SKIN, Left Antecubital Fossa D) - SKIN, Left Upper Back [facility] Work Phone: Pathology report final diagnosis Narrative z4xhhFKiQMUhaLBlEDXkG6iftuC xKBBzwVXjH0IpnsnxPLgqBD0hYO 7usFebdVTflDTcCPSjHuKpq8xty 964sIOtz2zaUXPBikxphBg3yKqh S89qj5Q0ZwhhJ26frOIeOOC8MHI xGWJscELrPXDgPCG9EGHayQAzI5 osWMFrYD9wayhgXNnaWKunBTUbs NF6RIIccJCaB6GeREGePAlbHJMl bjh1JtYbMo6tlXVnrQcmBLwyHRK vZCHrJFykZXIvWaQsZL3zT8pTRs zxARWXNWSRLyvWAC6FM7AODSUOC 0ZnNQFDSNDIAQNBC3EPHLmixDTf GEYtN4WWNN5FIJYwO8LENVRKVJZ ACD3FDDKbIM4qM1zGAEnmICtPDE 2CTZ4UGPYIVSSAZSQANSOFJQFUS CBUSEUgUEVSSVBIRVJBTCBNQVJH BW1EZAwZXIBICVDOAMZBOG2LUoS NQaQFEXIFMM0PMcdeFPAumAHvRM CeRTWbKJQZCE1oSNhOLlAkYPFSW I2FU2QMQNSEV2QvWDYXBPPUDSWB J9XNZDscdXcuGObkJEOTMJWAD9R SOGWADYggE0RDC9eVS79XQFvYBE NJVFUsIEVYVEVORElORyBUTyBBI GABOmpSKCOOEQnfBIHFV0rRDEaS JJOZYMLBUYAKHV7CKwTBQxKILXO DYR0OVdloVOIkxALeXJViHNGtRA SGIY1uYBxFKuEiDA7UVYXXIgwPC JusXe0VX2RhFKXEEUAUMZZEB1CS DZslfFzcRNzfJJTEWRHSO6OLPFR NAXqdC6CMI5uIS77WWShHZSQYMW UsIEVYVEVORElORyBUTyBUSEUgU SYKASGXJRULRZPHIVQYWN9ZTIxB JDNWRRIIEYJJPT1IHaEGNwOCISM KIG5HTsaqATWgdTGlLXAdUCUmRT BFPE0mFArRBzXwOKAWFYYyFqALD qyiZ3yQUxIfSdoKTLTGPgulyJ6y MWOoWcGGLXqrB8CKTRVHQSQLPG9 PTUEsIFNVUEVSRklDSUFMIEFORC LZH6RBUYXEWQPGSsKCJWRVKJEOR YRXGqNIQtkcZG3lWGfEMSGRHNIi HD5HAYVmJAZGOBBGXYMGFNDEFDU AGE5gNP6pXEzRC5PaCWdHUoYPGP 4EROEWU2XDO19wLFpkAJRfyRMbZ AibFCO3RWyveUtuNWufhN0rAKTx RDqyUTJ8lWUzjhKsHuBXmKZnaZC vhkulHLuptHZpaHcrWAUxr9P3YA W6WVJAXZcNWvbzSh3iXh1XExcaR UQgKipccGFyfQ== [facility] Work Phone: Pathology report gross observation Narrative a0kwtWJnBVTrpYAkNFZyW2yfmlF vKMQkyLMdY3AjzywwBXakMF7uAM 3smSpiiSJdrPJoBQYqHmWxm1sws 135yEUrp6xsBVPCmbesaOt0dHdp J40ng8A7AbziS62cmLByQBJ1PIY pDVZraWQkCOUgHPC7BMJbdIXxB3 ivJRQrVO9tdqwjRFlrAFrqIYPoy VR1FFVbwUFoC9TnPLCnEJqfENIa gxg2PrAuSf5vwNVkhOfcTRcxDaj ymFwyh1PfqIFjQAueXVTqKAIwXJ xgpglfQCz8YBCbMBvwaZIkJM7kf KjjHdffhJnnu7FocRWeUTqjURBm MXEnIDxwVGUyX5MMVVGlUBJaWUM 9SWgwRBe5RHa6PY7WBuGsPLDnOM zwEFM9TWQhCJm5GVyaAQ2RUDjnN uU8MoOlSaJ8BLO5VDUdIJYzMiCd NNTfCZQsFEwxdCLnER7xqPnnCVZ kXHBsYWluXGZzMjIgQTpccGFyXH HnlaPob6KmWOndnUqcBRBpYvCul 3SeBVoviGenRDTgImNekLvwlZ8k LjQiCPUsQjNkDYm2XUPhjR2aRp1 wcJBbjU7ouVDiTLDgWhL2DHhquC PaBX9hHHSxLJOlNW5lZMUivK0wS CBJdCBpcyBccHJvdGVjdHtcZmll cYR4FTswSmmdsO9feJDACJUQVxn TNcyrieCsOV2GXBCUBdSBFI74Oc mnNLv7MXfrxMtxGalueoCcwLZeT kWvvP80IW01UBFaJHqev7bsICRq MKzot5PoVMjLOLOEQA2TLH6flCH 1HOqAVPUQCHyfWUCtRJyapTO7n8 zqtJZpf8d5AOqnSVD7vBjokMWle poqeaCiIBFnrrUbw2much8rRRf5 HMbxLLpzfm22RQO0s2oyrJAxWPz fXnhtlYXkjwY9EHnEIKGPKYwOWy WpRO6zNNsCZ9NKTMzRLtybAKDjR FywlXX1d5dpjSItp5x7WAxhTGZ8 oKGnHKNfa9dhcHDqNYktFtodbSJ uaeR3NYfMZCHFVGwNBoYpFS1aZO xBX1UXTiY2PaleNQk6XaqrsRxkU nwpoxUlqFIyYeClfO1paKnraV8a LdYbDTNgyQ4yx4yreWBdAWBOwAC 6PUBsNK0mWBBrHKOyJNKuo0DaT5 E3KEUhZWvip7caYOPuKTilw3FvW ReAIQAXKG3TSD1huRA5NXbZNMLC R7sApGV7XmAqdFU0Q348QACjVAO wwRFeGJfnI484tA9dfZ84i1qjHv vpbCV0HZnwNplmgJ6gmPPIYBZOT byFQqpzhxGzTY7OMUZKMS2UbSR9 QtGopKC0T804BRSmKPMvvDKfIUl lK129AGQsELqqVWXoIvIpYoZzJH Hpg6YrY3P5ZNQjKWsan0aiLVGxU Thnc3XwXKzARYYAPK4SHW9uaSX3 UTqJOUCOU0xQdLF2PPR4xDE2XW5 7XNRuRSLnkVFeZOnwE738ZKgxIF VeYBCqsFWsMJvhtuFmjechVV48O DWbYHjya7dpHHDcHVkzm9BmVTtM DIIDIR9AYY0lkZY1FCfTQRGUJAa hAHwhRPq7fYK1k8awzAFfu7j4MN ebXMZ2aWpwqCEybnvljuOlUBJmB YfwNFAcR9XaC4WtgxY1CCBwyuvh QfjbpVhyp5OpdKGkQMyvBQZtRRJ aPFreGKRmA1TOIIFwXTCrUTD7GL rkVMk7WMy2ZX3POoBkCNJdZYwfH CV9KGOzAHi6WAwzDP3WRNeiSoI7 WcS0VyI1SEB3ACGsLKXgEvMuYHG bIRLbNQmsdFWwBT1loYjsWGRkHH WlQAV4FFZffRVEd5ZpHHVlLkXqG iBCOlxwYXJccGFyZFxzYjMwXGVw mEENm1LvSYqxGJAlTWIdxUPXz1W zMFxwbGFpblxmczIwICBSZWNlaX TjHVVpmlBtk3CxWCsodmSufhEdT QYoNOdnJPM8AZSxrX1csHicX2Fr r2Afi3ucqq8mEOi5IOhzLIvfwf1 1TUO4g4maiSVuTQnwHdepnCMrow N7PSwCFKHHYMtNJxGrKJ0oGArCW 2SMGLyBBwcfJOCnVWc7sRY2m0qa uXOjp8h9BAbrAMK8qNMaeeDfvdX mBhJgv808OPXcFDzlq4wzAVPnFC xlp2JiCTfPVOCFFT1YPS3ioSL7L ZwNLEBRZJynBEUhDIg5mKH3v9zb eFXze5h3ARcnIDE6rKmwcLCzlqm ycyIkSDOwjbBjx9gcqu9mFGe3QN ovYXgbam25FTI8t9wqbOZqTMqzO aygvLFtbwY3KJhQWBEAASiCFfJx XL7aZVsHQ7XYSZvIXuwrBEIsGHk 2lYZ0z2vktBXvy5z4IWwxNVU2aW WiAQCiq1zsdQVeUQkcUpysaQGrd eK8SJsNPEWRULvYIaYhEN4uZShJ K6KISdN5PoctUFv4Jwz1oZbnYzd qyvBamABqFvGucX9skInrbZ4sQp UgDOZabW4fb0mfwJDnBVGBvZY6Y SJhIH5gIBCrOGXyRCIhk3TsI7M0 DQTsXDqor6laHECdJIoui2JwQRd YOUCOGK6GVT1lvFM5ZNkXTPTSF0 vFuPK1AxLpdZq2R458SVZqAADzo PTpFSozD903wV4duD90c1deOrla vAA0MDqhCgulmO3igERAGXGDUuu JOuskjpOeGG8JCUWALI2GvEH4Ug EjtDv9M569PNVjMJXjdAMeEIgvS 319XHBsYWluXGZzMjAgLiAgXHBy x5IyG6X3QLTnSBmyj9ejLJLeHBn sv6WdAQjIZLUHHS6MTW2cnJO2PJ rLNKPWC4mMsNP4JES5bXz8EO72Z PEfCDBosFNmZEhlV256CUwmFKJb XENdjILsUMthbpVbnzhhHK86RFJ pOEojg0gdKNYiUCpsi8KzOBgJTQ BGHG6WDF4faND6KMvNPTZXOScnY QttVKx4rOr4c7mgqHYli0e0HKms VLV2eZikgMNkzgifvzTxCOYxECy mLIJsL6XhS3CqhpJ3RUJvccelIi pvnVfpm3GjoSZlQHazAZFpHBTaQ OpfFCFuA1CFQUHcFMFfOXY6NAvi BXa9VFf8KR0IJjUaPGFdPYexPHx 9ZXPdQRt9YKyvPA9QUOdsZdF6AH D0GmR0SVC5CSXqOWLuIpAjBETwE GVbNPfueOBkRD6faPvvCJFaUAJm XUK8COHwtFIDb0GpGBSzMkXgAmX DOlxwYXJccGFyZFxzYjMwXGVwaW KNy1YlNZleLVKhEAUduHIHo2LoX FxwbGFpblxmczIwICBSZWNlaXZl ZJNyqjXyo9HqIOawbmIsowYjWIi dtDA7KUboSJClkXTbjBUsKLLmVj Wlx3jnQeXfNHZpxLKpLOEeb0TgN 1R3GRYnLLjqs1pxGRVkFIacq8Ze PUiWDHNLIZ5GVO1mwWR6OFnRPAX QO9mAeZR1DbW6vAi8ZA34ZNVuYV BtaTNpEXqsP113aSXvg2zftLRcY FalWydetMKtwrY5TRfCRQTDYNfN HvJlFP9sZDiFF2LXTwZ5HxzpTNd 1IMd8uExlQopicyCzrFJgWvRnyS 6ctGhpsF1jQvMoHGTgnW2pG72fl 3IuICBJdCBpcyBccHJvdGVjdHtc BtbxiBQ9XQfjQvckhG6xmVXLHMB JCilVUouatzZsUC4LBPYMZiLPWQ 23WpeaXCg4LJK0DUJ3q1hrsEJvv 7d1OEdxKVC6hIIqVLYqs7fzaNGd ENppIvdrbTGeloS1NBoJDETZAOs GYaVlFV0vNPqET7PHTfW9SaurBM e3THD8KLT3b8iznEJbm7t4JVofE FB5fClmdLWvsvaahlJyPENlqmVp mLTrSU6yUXi7ZPavwoYbfSYwFMB cBYIfeNEixJInmChxFybphHG4LX emWeqbeY6zmEBYTCYFQqzIQvqjj kNuGV0BRUENLlSIRN96IxaeFnS5 YLA2HZM7a3ichNQjm8a6CSgaURW 3nYtnTIPkiN22LJArTEzik8mxLK BzPIxah2MeELmGQXWWNC7SPP4ak FP2XWaGVNIMCDdeSAPgMPyqIPhs QH30HPPhAUWseRVcPWksC932CDF jUAhgCQMkEgBhAmBxQZHyh7LpI4 C9QFNkOLncj4jjJDZkWTcgg7UbR VeOQQBRKM5OOP5rvRV8HToINUKI K5aMhNO5KXG5eBYizTShuJslBev jrfSxvAMhKiTdtQ7YpZStt2KgO7 zbUD6lp7DsUMrge6KkJrnqGkvrn GN8BPszIfdthV9qdLXEBPROUfzJ BglmlnWnOT7DDYJOTI5EzBB1AFX 5fDEyfDEyfXtcZmxkcnNsdCBcJz WdtU1lcElwbL2cCxSiBIMeQBA6M SDxoJXwEZB4VK2pbUipCEI1ERrq NGVzT2CyC5IzONdtLKX8PRPlNxP mGCInMM2OCoEkTCMxQWJiRMN7Xv B3NFg7TJREFcGlMbJsMBt5FPb8T qTaCEh4OVl9XYrJGmX0NiA9PdQ1 AQonWST4PBrwWNk5UFAmNMekpgU pQFnkHhupGHooO88glBIvMWaiSb AcXAyzzVliMOHvBUU3IDYiXzWcC RmtfPYhYJRmgtSev3QpWMkimJmc FRPtMrQmdVrdvC7rMeWwAOWiAmA oCEr7RFYehA5xJf7kmLZlpA0euC NwSKS1PHoyGSX9POSbnI9gePsxI 0Stf8Krx6qdsn1mEFc3XNdoIGkw il55PDX9r5btxQUjMAinZmuzoRA zyxG9DFwTCESMCWxTWzGkOS2tXR iED5XEERuNTpwoFSAsKOxhX8caX 265UOMyNXYarHMzNDxbH507aMSz b5skhVIyFLciXrcrtYIstrM5CQg VSPCLOIlBDzZcBL4kTNpPU5HEGf K7CfuaUJg8APL6HZI7t7hwjLNvg 7t2LDqxPKH2bBreuLIixphjjlVk MEUtvjVkz0lmpw5pHMb5AAhtTNv zge38RLS8l8jyyGChGQfsOvqwpZ HeusR5RRfMRBEFPSfYEvVjYD0dS TxBH9DDQYfMBhnuKZVgLNvzEUsw WZ93OTVuZAXrnAOeUJpvY155c2e ifgL0SNBaJNnar5jxCGQaVPgta4 HmEPpENHEJMP7KSZ5acOL6SFuGS YAOCMupDFWpPOekYRonIG21SLPp PFUzcJWuQUxhT083RQZiRLjyOFH zMjAgIGluIHNoYXBlLiAgSXQgd2 SxDBOlUnCfCMPhVGfbec92WHJ7m 6tydZNmIEqoPwcraEDpnaL2VTcW EOBVCBbTOmTcKC4iESgST7TFHTo TSskqDWAtLTowIIutZH32SVOdKH ZzsWSoNNzxG532wA3mjG15b8ckV xassRO7WKfaXnjblW9muWRJURGU SycHXfqprtBdDT6NZOADUO4LwGC 2DhEghMI9hVJ1yXrkMbsvrcTrkG WeVuNbuP2klKxwtE9yVeGqUENkZ WEfmLYqsULkdXvwZppwfJZ1FBld HqkoxD2tcFJDXKYQPgaTOpwwjyI jDV7TVVTKOkQUQR19Wob0Nta3HB F9LRG7e7fiqDOar9g9FHszWWF3y FUsPEFdcFOzwL6djgQ5XXJieF8a ADPri4bnfWOsHWrcVjwnrBIgjcI 1YZpMEZXECJcHPpRpIQ8hIAmDD3 SHKrL1Lpc6Qak6UHE8QUN0y7ett CSdy3a5OAgqQJA1wIragIUeienu czIwICAgXHBhclxwYXJkXHBhclx aFLJgIQJkeWJMh7OxYNRUiRVve9 HsM4cdMP8rh9ImPZmze0GzUZVgJ loaMBFmh3YpC1Q6GKBsLZpfj9px YSRqSJkja3SvOVjAGZKVVB9LKC6 dvKW9NQgTPTHVQ4hYnEGdXKrluT D3vBV5vBeqWbjquyIpvAPvKaNyg B5PRMC3sBBwNRSurKepnlVjq6jp jXZoSVnsJmlocFOjagZ6CZqOOFD QRPjUSxTzBF5mOSsRX9XEYmS2VO U2SoZ9VYd2NFs2e9xvfQAih3a5I KgyWLC5rMynjOOzdtgbhsDaKMB6 DFVozCCbZDB3XW3sePiqHYBrN7W kM3ZzvrL5YZCvnqe4WIDQFSDAAF pDBE9PBSTLMVPJRJ8CRGeAViUtK NVpNUkbALYaCfosQQb0Jq4qTkP6 MzOolSJ2Fn6vAQviEKd9GVPhHvh qINh8SL6tHnEgUbeiGZg2Ti1dAd W6DdXemHm1Al6cYKxjBPt0NWHfN onkONn2GQ7uIsD3XtE4fSAoSDCz XeupKlE8TIF9Be5oFZtuBDsvUm5 zMpI4YpS5oOUbLNKpOyctUOc1KS Y5DL0sIXRmJMqbGP5lGiD3PHD4q XJ5WSFiIUW3YtJ6DEp3WIKSHRFD XWgFN4JqOIEUJXNEWXOoIB1KCMb AYVCNDBCAE07DTSPRCVAEU0RGZ0 wFTVeHEVMMZTCQX40LRXNDURTRE 0YTHQKMAQVDGWeBWIFNHo7DRPCJ LWDUPO9MVBdBVsWpVDhxZZRpjWG 3fXAorX2qPxG1JgN6GQ5cXJrzQY MrsQP6qSLcWMLzLaO9VqK8BJ5wG WfiYIDyvFG3xIZrMzItRMLbLuI9 CiIkCM49QJarPYDycKS8uWvsfih eQRayZJe2IZa3FQAldNOnyPvev0 yqedtcBCIcCSq4Aoe6KETwsLFuj NigxMOaWXtdJFHmTOh6Q1v9ONIb bXBhdGhlbWJlZGRlZDozODIyMFx 6YJd5CDWgyXRwhRifbto1Ffg5Ri kjeTagk3Nafn6bSGZnU16wm1F6U cdbCHzfpSLnCMzlZAZnwRU7kZTo UONrVjW1XuY0ZZ5wDCd9IBHxeUR qeUxfjEFmLJLcTNuhJXMfDYk3UO Xcz5Rxyj3bGCSuwB2xXfM4KAF9V H7gF4s4NSKjkEHfvHhbc4jdzrze XEOlCPl8BMIjb4Wevf0zURCwl3a czWZ2GuobALcoqEC6EItsJCDjpR H6qSVpYaJtKLBvJtG2IdOfMI5jJ ng0UKGkdVSrpKjprmp3Bpf1Dzhw eEU9KVviCJPtwWJ6dXgac9PzZJA 6MTV2KjUucZBJSBWQHUrSRJRDGw 6IUAHEQRPDQX3HJeBoH9TZOT1BW s4DVDGMNGQAYR3JPHuQEhHyC2JR VJ5JIy7XUCDOTTLZZV1AEiVmZZG BS1ABUoKFI4obZTVCYXVIRLJiTr BZCJ3tUZHBNC7SHBXJIJEKU64HN UEOYRVIE7SJVX0= [facility] Work Phone: Pathology report microscopic observation Narrative Other stain s4wzvUYmYVAdnCIcEEIqX3magmR oUXWjuOXmT7TpqloyUXrcCZ2qBO 6waZeqcKThwCXaKMRdRwWfp6ktd 074jWAqx1gcINMIrnathFz5mHoz I30qp1E0KutnC25umZOhYJR1IRB zXVWunSNdACHlGOP7YURzmFLaY8 xlWYQkHB0uekivCHdcEAecRHNbl MM6SIVvkFSgJ5ObTGYxDFprHIKw dub3TmItRn0avHVyrSjbJZqmZOP vXWXdRSyeMZHaRbOhOQ8WUjUImO Vvf1Jwx9EhBrCjgIEdeO2jxFmfw xCeDVPvr9WvHDCbWVWbcr1= [facility] Work Phone: Pathology report relevant history Narrative x2mgsVMgEIZag8akLIXrsEMwRjW wMzNcZnRuYmpcdWMxIHtccnRmMV gvc9ShI8ZbPbHhGWvmiiFjTECsX ifvvhttUBIeOSG8aeYwOKJkMKvy UMNePDqoBz5obEMdaPxtDyEtZRN nw6ewwhBPOFodOHEAWRq1a8djPL UeNsA1vZMsQBdcS9cnwwJrrJIqP 4Wom4DxTWw7cT44LIYeyS4wtDRw CSmjznYzIlP9FBhiJNBvRmQ8AIO yoPTfLKTfF6grJKYlMClqKQVeGC bbmQEzUZK6oLgeb6G9hHVlaAPlf OwgWrSkUhXmMrEIz9HbCNo9jDzn D6FkNJAmQiM8uAAtYJLdMIpqQRO pWANpyeO6uP79BVtqftQ7kPFau0 Sji08dw321dG3rbXWnDZF5EMApC HJxpFMeUXEpSXI5HXRovIVrL8vi KTYxAJ9cepttHHxwYZaqKKLliUS 5WLBtpDSsN0BvGRAmMHfxGAQoxo z4CbKhHu0ufSDlgNssFJnkm0hwa 1ibtCJjTka9WLGdAkWxDvaePWjb l2Cwa5faBZHzrd7hQWN7lDNyaNy gd3R1nZNzGKJmdKHxueBuPGYdBo W4RXbkUU6ybi30ZEJqIZX4vu3rk UAdxTaspmKleNSuLKnzZ4BcUTAs i190XIVeN9ZzRUWeg2R9aqPgDoZ dKVBdvPV2euQ8GXUvRPv7xYQbmq S9thRmiPMyX9qlvZ9mHNDsKK1wx maif1ciVIdtCEgkXYIehVE8wqX8 AARliEIiU7TgjW5tUNKlXFzyLRM krzx5BzFzYt9sdNBvvIplNZndZk twYWdlXHBnbmNvbnRccGduZGVjX HBsYWluXHBsYWluXGYwXGZzMjRc cGFyZFxwbGFpblxmMVxmczIwXGx pfkbwMZIwZGkqW7pzFgYcSMVsqO nkELayf1TvPHLoITYaTntcsiRmQ GVdB210xbPlxaYGwAPdco3wgLI0 JD9ru7GoBWCmUV6bFXUvL4QjsLW yxlYgMFqlphkelqIdMuYiv3qkVJ xwYXIgXHBhclxxbFxwbGFpblxmM OrntrJ2RYUiQBjsAOKrABYqGzFc bGFuZzEwMzNcaGljaFxmMVxkYmN vXRHnNRxvF1khQcMnP3RrYKIdYw TjEJArihSCYrKfMCm4ZGQaXSxtU MVnH20fkPItxMjorrYKm92sSX01 qvqzGWblReEiXP35zIWxUFGjTBf pp1Xnsglif2XbhFEobVLzTACbCT NzOM3tgqubhwLmWUStA18tIphkQ JdcSROfH97paJFpjCK7NLPxyTDc QQVmyn1uGDAsOFsuCwdfUc05sZl jPXLUkFE4w4GukUnnsH4apIKyQl 0ubUNljY5aXre8AHZhcTatz4DjY OpfRMRyOkwbRKrlVfRHBQfjf137 OXmrJjMjO6Vdl9IbHAPNr5Y6VPP en9OriIFhJJPnTVLtkMKzFE0kuq CukFj9AKvldyJcYKxyeAGbnILwU FKuxbSzjRPbNZsVBjSaCTz4QNAy IyjxUFNeG05noQEooGcwslOFg24 aHJ73ryarBVbbGfJeND70oGBpCD SdZRozm0Tucjtwj5UiiMPmiHQnS USsVHWvGZ9mguqzbwLrPMWnR42f TebfMRlwATXmB95lwFKizGV8QFQ hoVYqTMWyqq8uKULpQZvnSsdsZv 07zIbvCBXNgFR1z1TjrYfchO4ee LMzYy7bySBdeN7oTyr3EEKooKvq l3LyZKalYGWgJqloXJsiPkHCEPd iy753KVayQtLmLACtILKjRNXqd3 EfrqnjjyaoRXBhL7DcN2qqBB8zO 6ZtGDH5xXWdYfVwLKNepKTruSMp dWxlXHBhciBccGFyIApEMjQtMDc 7JGAeY0hnSWUxZ28qvYYduVnchf VDs77bQE04kmnjVJbrUxKvYT51r YFaGUXyGHtev7DjrwjcT1EWQFV/ AOOkyfEJxRIgewUAHMXyeI0iEJn jre8Ffi92QKRvjESdRDPyiE5bcs UuPdGjDXStfkTMZFBswRN0lVBBR VA3ZDMfjBJtkfQpWJzzfJ2bESBq o8itJ8cdZYYxcw4qnQlnNXBiaUJ gSZXst3H5NWkixZUbEQLxbxZjxx rbNyPqaQ9nNlGHRNG6FFAflYOze YDnzDGuVWTqg2BrYGSrihCDuKPh yR9uqfZSSypyS8TnjgY7PCVdTLV et8nrMEUxLPKjpHBpMUQehpAujT OjWQbWHeBjNUy8WFKmYIchWTQrY 87eeSCbnMjxtjKDh47xFS27gviw UTwtIgPyZS57kLVvDMFyOEhkj6K qepfuKsMYZrrmSYFuH9icH4faGH JaP2cbykFYICZqTo1/OiAgXHBhc dNVo01gPY84ecqfUNifEJBeKNOz kIPqkQasNGNcQwJIk2Y5zM6pEFh ih5ZhqIZ6pX0pb8f3HVmxg7ZwQT qqne0bmAdrXHS9tACafQHcOLIfb mSOfV6sfD1xUFFzK1tzxgkpLPJq dCBVcHBlciBCYWNrXHBhciBTcGV lxW7togWAOvixI2XdcoA4SLMadf dhx5mmGJIbXWLblgAmhQDdTPprk GFpblxmMVxmczIwXGxhbmcxMDMz GZbhH8yyGkZvXQIvsPacGWwbd8A oXGYxXGZzMjBccGFyfX0= [facility] Work Phone: [facility] Work Phone: Lesion biopsyon 08-31-2023 Type [...] and wound care instructions given Dressing type: petrolat and bandage [facility] Work Phone: [facility] Work Phone: Type of biopsy: matson [...] instructions given Dressing type: petrolatum and bandage [facility] Work Phone: [facility] Work Phone: Type of biopsy: matson [...] instructions given Dressing type: petrolatum and bandage [facility] Work Phone: [facility] Work Phone: Type of biopsy: matson [...] instructions given Dressing type: petrolatum and bandage [facility] Work Phone: [facility] Work Phone: Skin biopsyon 03-06-2023 Type of biopsy: tangential [facility] Work Phone: [facility] Work Phone: ACETAMINOPHEN LEVELon 2017 Acetaminophen mass conc <2 Abnormal 10-30 [facility] Comment on above: Result Comment: Ther apeutic Range:10.00-30.00 ug/mL Performed By: #### L AB17, LAB62, LAB44 ####[facility] [id number] ARTERIAL BLOOD GASESon 01-07 ARTERIAL BLOOD GASES Normal [facility] Comment on above: Result Comment: The term oxygen saturation has changed to FO2HB per CAP standard. The measurement itself has not changed. Performed By: #### L AB17, LAB62, LAB44 ####[facility] [id number] [place], [place] [address] BASE EXCESS -7.8 mEq/L Abnormal 0.0-2.0 [facility] Comment on above: Performed By: #### Ron MOISE, LAB62, LAB44 ####[facility] [id number] [place] [address] [facility] CARBOXYHEMOGLOBIN 0.8 % Normal 0.5-2.0 [facility] Comment on above: Result Comment: Carb oxyhemoglobin Reference Range: Non Smokers: <2% Smokers: <8% Toxic: >20% Performed By: #### Ron MOISE, LAB62, LAB44 ####[facility] [id number] [address] FO2HB 77.5 % Abnormal 94.7-97.0 [facility] Comment on above: Performed By: #### Ron MOISE, LABMaría Elena, LAB44 ####[facility] [id number] HCO3 ARTERIAL 18.2 mEq/L Abnormal 22.0-26.0 [facility] Comment on above: Performed By: #### Ron MOISE LABMaría Elena, LAB44 ####[facility] [id number] [address] Hemoglobin mass conc (Bld) 15.1 g/dL Normal 11.0-16.0 g/dL [facility] Comment on above: Performed By: #### Ron MOISE, LAB62, LAB44 ####[facility] [id number] [place] [address] METHEMOGLOBIN 0.0 % Normal 0.0-2.0 [facility] Comment on above: Performed By: #### Ron MOISE LABMaría Elena, LAB44 ####[facility] [id number] [place] [id number] [facility] PCO2, ARTERIAL 39 mmHg Normal 32-45 [facility] Comment on above: Performed By: #### Ron MOISE, LAB62, LAB44 ####[facility] [id number] [address] pH (Bld) 7.29 [pH] Abnormal 7.35-7.45 [facility] Comment on above: Performed By: #### Ron MOISE, LAB62, LAB44 ####[facility] [id number] [place] [id number] [facility] PO[address], ARTERIAL 49 mmHg Abnormal 96-104 [facility] Comment on above: Performed By: #### Ron MOISE, LAB62, LAB44 ####[facility] [id number] [place] [address] [place] RHB 21.7 % Abnormal 0.0-5.0 [facility] Comment on above: Performed By: #### Ron MOISE, LAB62, LAB44 ####[facility] [id number] [address] CBC W/DIFFon 01-07-2018 Basophils/100 WBC Auto (Bld) 0.3 % Normal [facility] Comment on above: Performed By: #### Ron MOISE, LAB62, LAB44 ####[facility] [id number] [address] Body surface area Derived from formula 4.6 K/uL Normal 2.0-7.3 [facility] Comment on above: Performed By: #### Ron MOISE, LAB62, LAB44 ####[address] Body surface area Derived from formula 0.0 K/uL Normal 0.0-0.1 [facility] Comment on above: Performed By: #### Ron MOISE, LAB62, LAB44 ####[facility] [id number] Eosinophils Auto #/vol (Bld) 0.1 10*3/uL Normal 0.0-0.4 [facility] Comment on above: Performed By: #### Ron MOISE, LAB62, LAB44 ####[facility] [id number] [place] [address] Eosinophils Auto #/vol (Bld) 0.9 10*3/uL Normal [facility] Comment on above: Performed By: #### Ron MOISE, LAB62, LAB44 ####[facility] [id number] [address] Erythrocyte distribution width Auto Ratio (RBC) 13.8 % Normal 11.7-15.2 [facility] Comment on above: Performed By: #### Ron MOISE, LAB62, LAB44 ####[facility] [id number] [address] Hematocrit Auto Volume Fraction (Bld) 43.2 % Normal 39.0-51.5 [facility] Comment on above: Performed By: #### L AB17, LAB62, LAB44 ####[facility] [id number] [place], [place] [address] Hemoglobin mass conc (Bld) 14.4 g/dL Normal 13.1-17.6 [facility] Comment on above: Performed By: #### Ron AB17, LAB62, LAB44 ####[facility] [id number] [place], [place] [address] Lymphocytes Auto #/vol (Bld) 1.5 10*3/uL Normal 0.8-3.6 [facility] Comment on above: Performed By: #### Ron ABFelix, LAB62, LAB44 ####[facility] [id number] [address] Lymphocytes Auto #/vol (Bld) 22.8 10*3/uL Normal [facility] Comment on above: Performed By: #### Ron ABFelix, LAB62, LAB44 ####[facility] [id number] [address] MCH Auto Entitic mass (RBC) 31.6 pg Normal 28.4-33.4 [facility] Comment on above: Performed By: #### Ron MOISE, LAB62, LAB44 ####[facility] [id number] [address] MCHC Auto mass conc (RBC) 33.4 g/dL Normal 31.1-37.0 [facility] Comment on above: Performed By: #### Ron ABFelix, LAB62, LAB44 ####[facility] [id number] [address] MCV Auto Entitic volume (RBC) 94.6 fL Normal 85.0-99.0 [facility] Comment on above: Performed By: #### Ron ABFelix, LAB62, LAB44 ####[facility] [id number] [address] Monocytes Auto #/vol (Bld) 4.2 10*3/uL Normal [facility] Comment on above: Performed By: #### L AB17, LAB62, LAB44 ####[facility] [id number] [place], [place] [address] Monocytes Auto #/vol (Bld) 0.3 10*3/uL Normal 0.3-0.9 [facility] Comment on above: Performed By: #### Ron MOISE, LAB62, LAB44 ####[facility] [id number] [address] Neutrophils Auto #/vol (Bld) 71.8 10*3/uL Normal [facility] Comment on above: Performed By: #### Ron MOISE, LAB62, LAB44 ####[facility] [id number] [address] Platelets Auto #/vol (Bld) 214 10*3/uL Normal 154-393 [facility] Comment on above: Performed By: #### Ron MOISE LAB62, LAB44 ####[facility] [id number] [address] RBC Auto #/vol (Bld) 4.57 10*6/uL Normal 4.30-5.86 [facility] Comment on above: Performed By: #### Ron MOISE LABMaría Elena, LAB44 ####[facility] [id number] [place] [address] WBC Auto #/vol (Bld) 6.4 10*3/uL Normal 4.0-10.5 [facility] Comment on above: Performed By: #### Ron MOISE LABMaría Elena, LAB44 ####[facility] [id number] [place] [address] COMPREHENSIVE METABOLIC PANE Michael 01-07-2018 Albumin mass conc 3.6 g/dL Normal 3.4-5.0 [facility] Comment on above: Performed By: #### Ron MOISE, LAB62, LAB44 ####[facility] [id number] [address] Albumin/Globulin mass ratio 0.9 {ratio} Abnormal 1.0-2.0 [facility] Comment on above: Performed By: #### Ron MOISE LAB62, LAB44 ####[facility] [id number] [address] ALP enzyme act/vol 55 U/L Normal 45-117 [facility] Comment on above: Performed By: #### Ron MOISE, LAB62, LAB44 ####[facility] [address] ALT enzyme act/vol 26 U/L Normal 12-78 [facility] Comment on above: Performed By: #### Ron AB17, LAB62, LAB44 ####[facility] IRO493 [place] [address] [place] Anion gap 3 molar conc 14 mmol/L Normal 7-16 [facility] Comment on above: Performed By: #### L AB17, LAB62, LAB44 ####[facility] [id number] [place] [address] [place] AST enzyme act/vol 15 U/L Normal 15-37 [facility] Comment on above: Performed By: #### Ron AB17, LAB62, LAB44 ####[facility] TUM933 [place] [address] [place] Bilirubin Ql (U) 0.2 mg/dL Normal 0.2-1.[address] [facility] Comment on above: Performed By: #### Ron AB17, LAB62, LAB44 ####[facility] [id number] [place] [address] [place] Calcium mass conc 8.8 mg/dL Normal 8.5-10.1 [facility] Comment on above: Performed By: #### Ron ABFelix, LAB62, LAB44 ####[facility] [id number] [place] [address] [place] Chloride molar conc 96 mmol/L Abnormal 98-107 [facility] Comment on above: Performed By: #### Ron AB17, LAB62, LAB44 ####[facility] QYU537 [place] [address] [place] CO2 molar conc 22 mmol/L Normal 21-32 [facility] Comment on above: Performed By: #### L AB17, LAB62, LAB44 ####[facility] QFR638 [place] [address] [place] Creatinine mass conc 1.4 mg/dL Abnormal 0.60-1.3 [facility] Comment on above: Performed By: #### Rno AB17, LAB62, LAB44 ####[facility] [id number] [place] [address] [place] GFR MDRD NON AF AMER 53 ml/min/1.73m2 Normal >60 [facility] Comment on above: Result Comment: GFR is estimated using creatinine, age, gender, and race. Patient's values should be interpreted as a trend. For additional information: [email or web address] Performed By: #### Ron MOISE LAB62, LAB44 ####[facility] [id number] [address] GFR/1.73 sq M predicted among blacks MDRD vol rate/area (S/P/Bld) mL/min/{1.73_m2} Normal >60 [facility] Comment on above: Result Comment: GFR is estimated using creatinine, age, gender, and race. Patient's values should be interpreted as a trend. For additional information: [email or web address] Performed By: #### Ron MOISE LAB62, LAB44 ####[facility] [id number] [address] Globulin Calculated mass conc (S) 4.2 g/dL Normal 2.6-4.2 [facility] Comment on above: Performed By: #### Ron MOISE LAB62, LAB44 ####[facility] [id number] [address] Glucose mass conc 527 mg/dL Critically high 74-106 [facility] Comment on above: Performed By: #### Ron MOISE LAB62, LAB44 ####[facility] PBY125 [place] [id number] [facility] Potassium molar conc 4.0 mmol/L Normal 3.5-5.1 [facility] Comment on above: Performed By: #### Ron MOISE LAB62, LAB44 ####[facility] [id number] [place] [id number] [facility] Protein mass conc 7.8 g/dL Normal 6.4-8.2 [facility] Comment on above: Performed By: #### Ron MOISE LAB62, LAB44 ####[facility] SGR730 [place] [address] [facility] Sodium molar conc 132 mmol/L Abnormal 136-145 [facility] Comment on above: Performed By: #### Ron MOISE, LAB62, LAB44 ####[facility] [id number] [place] [address] [facility] Urea nitrogen mass conc (Bld) 12 mg/dL Normal 7-18 [facility] Comment on above: Performed By: #### L AB17, LAB62, LAB44 ####[facility] [id number] [address] ED Provider Noteson 01-08-20 18 Protein mass conc Encounter Department : [facility]ED Provider Notes by Luiz Butts [...] in his because he had planned on fogging his house and to empty cans were [...] on October 04, 2017, nonspecific, nonpathologic changesare demonstratedRADIOLOGY/[facility] DURESNo orders to displayLabs ReviewedCOMPREHENSIVE METABOLIC PANEL - Abnormal; Notable for the following: ResultValueRef TcjliQvfqrlMldnnf781 (*)136 - 145 mmol/BNliqqYtqunbob48 (*)98 - 107 mmol/SNtaslBrxzyla912 (*)74 - 106 mg/dLFinalCreatinine1.4 (*)0.60 - 1.3 mg/dLFinalAG Ratio0.9 (*)1.0 - 2.0FinalAll other components within normal limitsETHANOL - Abnormal; Notable for the following:Awrusnk935 (*)<=3 mg/dLFinalAll other components within normal limitsNarrative:Results [...] Notable for the following:pH, Arterial7.29 (*)7.35 - 7.51UbzxaJI887 (*)96 - 104 wqKnWnvlcNC2Ld63.5 (*)94.7 - 97.0 %FinalHCO3, Glibvspo76.2 (*)22.0 - 26.0 mEq/LFinalBase Excess-7.8 (*)0.0 - 2.0 mEq/CRzzqbXWI86.7 (*)0.0 - 5.0 %FinalAll other components within [...] RESULTS - Abnormal; Notable for the following:POC Fvlfsrx375 (*)74 - 106 mg/dLFinalAll other components within normal limitsNarrative:Point of care test performed at bedside.GLUCOSE POC RESULTS - Abnormal; Notable for the following:POC Tnzoetb301 (*)74 - 106 mg/dLFinalAll other components within [...] 2 diabetes mellitus with complication, 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 billiard table assembler insulin use (HCC)Electronicallysigned by: Luiz Butts MD, 01/10/2018 8:43 Zev Butts MD01/07/18 0845Luiz Butts MD01/10/18 0843 [facility] EKG STANDARD 12 LEADon 01-07 Heart rate RR Interval= 566 msP R Interval= 166 msQRSD Interval= 105 msQT Interval= 365 msQTc Interval= 485 msHeart Rate= 106 msP Marcella= 51 degQRS Marcella= 19 degT Wave Marcella= -4 degI: 40 Marcella= 13 degT: 40 Marcella= 44 degST Marcella= -[address] elevation, anterior leads Electronically Signed by: Sung Hall) 07-Jan-2018 10:39:04 Date and Time of Study: 2018-01-06 23:44:05 Normal [facility] ETHANOLon 01-07-2018 Ethanol mass conc 321 mg/dL Abnormal <=3 [facility] Comment on above: Performed By: #### Ron AB17, LAB62, LAB44 ####[facility] [id number] [place] [address] [facility] Ethanol mass conc Normal [facility] Comment on above: Result Comment: Resu lts of this test should always be interpreted in conjunction with the patient's medical history, clinical presentation and other findings.The pharmacological response to blood alcohol levels may vary from individual to individual. The fatal concentration has been reported to be greater than 400 mg/dL. Performed By: #### Ron AB17, LAB62, LAB44 ####[facility] [id number] [place] [address] [facility] MAGNESIUMon 01-07-2018 Magnesium mass conc 2.2 mg/dL Normal 1.5-2.3 [facility] Comment on above: Performed By: #### Ron AB17, LAB62, LAB44 ####[facility] BAH585 [place] [address] [facility] SALICYLATE LEVELon 8 SALICYLATE (GMH/IRS) <1.7 Abnormal 3.0-20.0 [facility] Comment on above: Performed By: #### Ron AB17, LAB62, LAB44 ####[facility] [id number] [place] [address] [facility] SALICYLATE LEVEL Normal [facility] Comment on above: Result Comment: Ther apeutic Range: 20-25 mg/dLEffective 01/21/13 please note new reference ranges due to change in chemistry laboratory instrumentation. Performed By: #### L AB17, LAB62, LAB44 ####[facility] [id number] [place] [address] [facility] UNIVERSAL DRUG SCREEN-MATERN AL/NEONATEon 01-07-2018 AMPHETAMINE METAB Negative Normal Negative [facility] Comment on above: Performed By: #### Ron AB17, LAB62, LAB44 ####[facility] [id number] [address] BARBITURATES Negative Normal Negative [facility] Comment on above: Performed By: #### L AB17, LAB62, LAB44 ####[facility] [id number] [address] Benzodiazepines Screen Ql (U) Negative Normal Negative [facility] Comment on above: Performed By: #### Ron AB17, LAB62, LAB44 ####[facility] [id number] [address] BUPRENORPHINE URINE Negative Normal Negative [facility] Comment on above: Performed By: #### Ron AB17, LAB62, LAB44 ####[facility] [id number] [address] CANNABINOID METAB Negative Normal Negative [facility] Comment on above: Performed By: #### Ron ABFelix, LAB62, LAB44 ####[facility] [id number] [address] Cocaine Ql (U) Negative Normal Negative [facility] Comment on above: Performed By: #### Ron ABFelix, LAB62, LAB44 ####[facility] [id number] [address] METHADONE, URINE QUAL Negative Normal Negative [facility] Comment on above: Performed By: #### Ron AB17, LAB62, LAB44 ####[facility] [id number] [address] OPIATE METAB Negative Normal Negative [facility] Comment on above: Performed By: #### L AB17, LAB62, LAB44 ####[facility] [id number] [address] OXYCODONE URINE Negative Normal Negative [facility] Comment on above: Performed By: #### L AB17, LAB62, LAB44 ####[facility] [id number] [place] [id number] [facility] PHENCYCLIDINE METAB Negative Normal Negative [facility] Comment on above: Performed By: #### L AB17, LAB62, LAB44 ####[facility] [id number] [address] UNIVERSAL DRUG SCREEN-MATERNAL/NEON ATE Normal [facility] Comment on above: Result Comment: Drug [...] Performed By: #### Ron MOISE, LAB62, LAB44 ####[address] URINALYSIS MICROSCOPIC ONLYo n 01-07-2018 AMORPHOUS CRYSTALS 2+ /lpf Abnormal Negative [facility] Comment on above: Performed By: ###Handy MOISE, LAB62, LAB44 ####[address] Bacteria LM.HPF #/area (Urine sed) Trace Abnormal Negative [facility] Comment on above: Performed By: ###Handy MOISE, LAB62, LAB44 ####[address] URINE RED BLOOD CELLS 0-3 Normal 0-3 [facility] Comment on above: Performed By: #### Ron MOISE, LAB62, LAB44 ####[address] URINE WHITE BLOOD CELLS 0-3 Normal 0-3 [facility] Comment on above: Performed By: #### Ron MOISE, LAB62, LAB44 ####[address] URINALYSIS W/REFLEX MICROSCO PYon 01-07-2018 Appearance Nom (U) Clear Normal Clear [facility] Comment on above: Performed By: #### Ron ABFelix, LAB62, LAB44 ####[address] BILIRUBIN, UA Negative Normal Negative [facility] Comment on above: Performed By: #### Ron ABFelix, LAB62, LAB44 ####[facility] [id number] [address] BLOOD, UA Trace Abnormal Negative [facility] Comment on above: Performed By: #### L AB17, LAB62, LAB44 ####[facility] [id number] [address] Color Nom (U) Yellow Normal Yellow [facility] Comment on above: Performed By: #### Ron AB17, LAB62, LAB44 ####[facility] [id number] [place] [address] GLUCOSE, UA >=1000 Abnormal Negative [facility] Comment on above: Performed By: #### Ron ABFelix, LAB62, LAB44 ####[facility] [id number] [place] [address] KETONES, UA Negative Normal Negative [facility] Comment on above: Performed By: #### Ron MOISE, LAB62, LAB44 ####[facility] [id number] [place] [address] LEUKOCYTES, UA Negative Normal Negative [facility] Comment on above: Performed By: #### Ron MOISE, LAB62, LAB44 ####[facility] [id number] [address] Nitrite Test strip Ql (U) Negative Normal Negative [facility] Comment on above: Performed By: #### Ron ABFelix, LAB62, LAB44 ####[facility] [id number] [address] PH, UA 5.5 Normal 5.0-8.0 [facility] Comment on above: Performed By: #### Ron ABFelix, LAB62, LAB44 ####[facility] [id number] [address] PROTEIN, UA Negative Normal Negative [facility] Comment on above: Performed By: #### Ron AB17, LAB62, LAB44 ####[facility] [id number] SPECIFIC GRAVITY, UA 1.005 Normal 1.001-1.035 [facility] Comment on above: Performed By: #### Ron AB17, LAB62, LAB44 ####[place] [id number] [address] UROBILINOGEN, UA 0.2 EU/dL Normal 0.2-1.[address] [facility] Comment on above: Performed By: #### L AB17, LAB62, LAB44 ####[place] [id number] [address] ACETONE,KETONESon 10-04-2017 BETA-HYDROXYBUTYRATE 0.54 mmol/L Abnormal 0.02-0.27 [facility] Comment on above: Performed By: #### L AB17, LAB62, LAB44 ####[address] CBC W/DIFFon 10-04-2017 Basophils/100 WBC Auto (Bld) 0.7 % Normal [facility] Comment on above: Performed By: #### L AB293 ####[address] Body surface area Derived from formula 3.2 K/uL Normal 2.0-7.3 [facility] Comment on above: Performed By: #### L AB293 ####[address] Body surface area Derived from formula 0.1 K/uL Normal 0.0-0.1 [facility] Comment on above: Performed By: #### L AB293 ####[address] Eosinophils Auto #/vol (Bld) 2.3 10*3/uL Normal [facility] Comment on above: Performed By: #### L AB293 ####[address] Eosinophils Auto #/vol (Bld) 0.2 10*3/uL Normal 0.0-0.4 [facility] Comment on above: Performed By: #### L AB293 ####[address] Erythrocyte distribution width Auto Ratio (RBC) 14.7 % Normal 11.7-15.2 [facility] Comment on above: Performed By: #### L AB293 ####[place] [address] [place] Hematocrit Auto Volume Fraction (Bld) 44.1 % Normal 39.0-51.5 [facility] Comment on above: Performed By: #### L AB293 ####[address] Hemoglobin mass conc (Bld) 14.8 g/dL Normal 13.1-17.6 [facility] Comment on above: Performed By: #### L AB293 ####[address] Lymphocytes Auto #/vol (Bld) 3.2 10*3/uL Normal 0.8-3.6 [facility] Comment on above: Performed By: #### L AB293 ####[address] Lymphocytes Auto #/vol (Bld) 43.4 10*3/uL Normal [facility] Comment on above: Performed By: #### L AB293 ####[address] MCH Auto Entitic mass (RBC) 31.6 pg Normal 28.4-33.4 [facility] Comment on above: Performed By: #### L AB293 ####[address] MCHC Auto mass conc (RBC) 33.5 g/dL Normal 31.1-37.0 [facility] Comment on above: Performed By: #### L AB293 ####[address] MCV Auto Entitic volume (RBC) 94.2 fL Normal 85.0-99.0 [facility] Comment on above: Performed By: #### L AB293 ####[address] Monocytes Auto #/vol (Bld) 0.8 10*3/uL Normal 0.3-0.9 [facility] Comment on above: Performed By: #### L AB293 ####[address] Monocytes Auto #/vol (Bld) 10.4 10*3/uL Normal [facility] Comment on above: Performed By: #### L AB293 ####[facility] HKR487 [place] [address] [facility] Neutrophils Auto #/vol (Bld) 43.2 10*3/uL Normal [facility] Comment on above: Performed By: #### L AB293 ####[facility] ACY892 [place] [address] [facility] Platelets Auto #/vol (Bld) 196 10*3/uL Normal 154-393 [facility] Comment on above: Performed By: #### L AB293 ####[facility] CPY202 [place] [address] [facility] RBC Auto #/vol (Bld) 4.68 10*6/uL Normal 4.30-5.86 [facility] Comment on above: Performed By: #### Ron AB293 ####[facility] [id number] [place] [address] [facility] WBC Auto #/vol (Bld) 7.4 10*3/uL Normal 4.0-10.5 [facility] Comment on above: Performed By: #### Ron AB293 ####[facility] [id number] [place] [address] [facility] CKon 10-04-2017 CREATINE KINASE TOTAL 199 U/L Normal 39-308 [facility] Comment on above: Performed By: #### Ron MOISE, LAB62, LAB44 ####[facility] HBF227 [place] [address] [facility] COMPREHENSIVE METABOLIC PANE Michael 10-04-2017 Albumin mass conc 3.7 g/dL Normal 3.4-5.0 [facility] Comment on above: Performed By: #### Ron MOISE, LAB62, LAB44 ####[facility] FSL696 [place] [address] [facility] Albumin/Globulin mass ratio 0.9 {ratio} Abnormal 1.0-2.0 [facility] Comment on above: Performed By: #### Ron MOISE, LAB62, LAB44 ####[facility] [id number] [place] [address] [facility] ALP enzyme act/vol 55 U/L Normal 45-117 [facility] Comment on above: Performed By: #### Ron MOISE, LAB62, LAB44 ####[facility] FSB754 [place] [address] [facility] ALT enzyme act/vol 35 U/L Normal 12-78 [facility] Comment on above: Performed By: #### Ron MOISE, LAB62, LAB44 ####[facility] UEJ741 [place] [address] [facility] Anion gap 3 molar conc 15 mmol/L Normal 7-16 [facility] Comment on above: Performed By: #### Ron MOISE, LAB62, LAB44 ####[facility] VBU179 [place] [address] [facility] AST enzyme act/vol 26 U/L Normal 15-37 [facility] Comment on above: Performed By: #### Ron MOISE, LAB62, LAB44 ####[facility] [id number] [address] Bilirubin Ql (U) 0.2 mg/dL Normal 0.2-1.[address] [facility] Comment on above: Performed By: #### Ron MOISE, LAB62, LAB44 ####[facility] GSQ859 [place] [address] [facility] Calcium mass conc 8.9 mg/dL Normal 8.5-10.1 [facility] Comment on above: Performed By: #### Ron MOISE, LAB62, LAB44 ####[facility] [id number] [place] [address] [facility] Chloride molar conc 95 mmol/L Abnormal 98-107 [facility] Comment on above: Performed By: #### Ron MOISE LAB62, LAB44 ####[facility] EHA963 [place] [address] [facility] CO2 molar conc 23 mmol/L Normal 21-32 [facility] Comment on above: Performed By: #### Ron MOISE, LAB62, LAB44 ####[facility] WUO461 [place] [id number] [facility] Creatinine mass conc 1.2 mg/dL Normal 0.60-1.3 [facility] Comment on above: Performed By: #### Ron MOISE, LAB62, LAB44 ####[facility] [id number] [place] [address] [facility] GFR MDRD NON AF AMER >60 Normal >60 [facility] Comment on above: Result Comment: GFR is estimated using creatinine, age, gender, and race. Patient's values should be interpreted as a trend. For additional information: [email or web address] Performed By: #### Ron MOISE LAB62, LAB44 ####[facility] TVM917 [place] [address] [place] GFR/1.73 sq M predicted among blacks MDRD vol rate/area (S/P/Bld) mL/min/{1.73_m2} Normal >60 [facility] Comment on above: Result Comment: GFR is estimated using creatinine, age, gender, and race. Patient's values should be interpreted as a trend. For additional information: [email or web address] Performed By: #### Ron MOISE, LAB62, LAB44 ####[facility] [id number] [address] Globulin Calculated mass conc (S) 4.3 g/dL Abnormal 2.6-4.2 [facility] Comment on above: Performed By: ###Handy MOISE, LAB62, LAB44 ####[facility] [id number] [address] Glucose mass conc 304 mg/dL Abnormal 74-106 [facility] Comment on above: Performed By: ###Handy MOISE LAB62, LAB44 ####[facility] [id number] [address] Potassium molar conc 3.6 mmol/L Normal 3.5-5.1 [facility] Comment on above: Performed By: ###Handy MOISE, LAB62, LAB44 ####[facility] [id number] [address] Protein mass conc 8.0 g/dL Normal 6.4-8.2 [facility] Comment on above: Performed By: ###Handy MOISE, LAB62, LAB44 ####[facility] [id number] [address] Sodium molar conc 133 mmol/L Abnormal 136-145 [facility] Comment on above: Performed By: #### Ron MOISE, LAB62, LAB44 ####[facility] [id number] [place] [id number] Urea nitrogen mass conc (Bld) 9 mg/dL Normal 7-18 [facility] Comment on above: Performed By: #### L AB17, LAB62, LAB44 ####[facility] [id number] Consultson 10-04-2017 Consults Encounter Department : [facility] EM[facility]GENCY DEPTConsults by DIANA Antoine at 10/04/2017 5:20 PMAuthor: MINA Antoineervice: (none)Author Type: RIMMA SpecialistFiled: 10/04/2017 7:34 PMDate of Service: 10/04/2017 5:20 PMStatus: SignedEditor: DIANA Antoine (RIMMA Specialist) Consult Orders: 1. Behavioral Health Assessment Consult [[id number]] ordered by Ana María Brennan MD at10/04/17 0826Name: Ciro RossDOB: 1965[facility] [id number] [place] [address]Phone: Zizobyjmvin Information:52 y/o White male brought to [facility] ED by EMS for AoD and possibleSI attempt OD.Presenting Problem:Suicide Attempt OD, AoD, DepressionPresenting Problem Narrative: Pt brought to [facility] ED and placed on hold by EMS after being found inhis g/f's back yard intoxicated and having possibly taken too much of his diabetes medication. [facility] ED report, pt was non compliant w/ medical treatment in relation to his diabetes for some time,refusing any care. Pt was alert, oriented X4, agitated, directable, and guarded during assessment. He presented w/ appropriate affect and tired mood. Pt made minimal to no eye contact duringassessment, instead staring at the wall or keeping his eyes closed. He denied active SI/HI/AVH,advising he was drunk last night and upset about breaking up w/ his [place] Pt advised [place] a [place] flight to [place] scheduled for 18:00 this evening, but would bemissing it due to his still being in the hospital. He claimed he was too chicken to do anythinglike that to myself and never had any specific plan when he was making the statements. He deniedtrying to take his diabetes medication in an attempt to kill himself, advising he was drunk andconfused when the authorities arrived. Pt endorsed drinking a couple beers daily and marijuanaon occasion. He denied hx of MH and/or AoD treatment, advising he was not connected w/ providersin [place] currently either. Pt claimed to have a strong support system of family and friends andfeeling safe at his home in [place]. He requested to be discharged in order to get his affairs inorder to return home.RIMMA consulted w/ Betsy Morales CNP, who advised pt did not meet criteria for inpatientpsychiatric admission. Dr. Brennan was in agreement w/ YUNI Morales's disposition. Pt was dischargedw/out incident and encouraged to follow up w/ outpatient MH providers upon his return home.ReferralSource:Referra l Source: Law Enforcement/MedicLaw Enforcement/ Medic: Medic (Comment) ([facility] )Psychiatric Directive:None knownPrimary Care MD:NoneCustody/Guardianship :Guardian Type: NonePsychosocial Data:Marital Status: DivorcedWho do you live with?: Alone (Pt currently resident of [place], was in area visiting . )Family of Origin: BiologicalSexual orientation: HeterosexualSource of Emotional Support: Family and friends in [place]/relationship problems: Yes (Comment) (Pt reported breaking up [...] NoWas toxicology done?: NoChemical 1:Chemical Used: MarijuanaAmount/Frequency: couple hits/ occasionallyRoute: SmokedAge First Used:Last Use: 1 month agoChemical 2:Chemical Used:Amount/Frequency:Route :Age First Used:Last Use:Chemical 3:Chemical Used:Amount/Frequency:Route :Age First Used:Last Use:Chemical 4:Chemical Used:Amount/Frequency:Route :Age First Used:Last Use:Affect/Mood:Affect: AppropriateMood: Other (Comment) (Tired )Speech:Pace: NormalVolume: NormalForm: LogicalClarity: ClearContent: NormalOrientation/Concentra tion/Memory:Orientation Level: Oriented O9Utgniocxqgrvh: AlertMemory: IntactJudgment: FairInsight: DenialEstimated Intelligence: AverageThought Content:Content: [...] to feel safe and supported residing in [place], requested dischargein order to return to his home.Physician Contact:Diagnosis Provided By:: RIMMA WorkerClinical Diagnosis: F19.94 Substance induced mood disorderSubstance Use Diagnosis: F10.10 Alcohol use disorder, mildPersonality Disorders: deferredPsychosocial Stressors: Z72.9 Problem related to lifestyle, Z63.0 Relational distress from partnerPhysician contacted?: YesPhysician Name:: Dr. Salguero of medical clearance:: [id number] Contact Comments:: Agreed pt appropriate for discharge.Psychiatrist contacted?: YesPsychiatrist Name:: Betsy Morales CNPTime of Contact: 1009Psychiatrist Contact Comments:: Advised pt not appropriate for inpatient psychiatric care,recommended discharge to follow up in [place].Patient Active Problem ListDiagnosis -Overdose, intentional self-harm, initial encounter ([facility])Insurance Information/Pre-Auth:Self Pay?: YesDisposition:Perception of Needs:: Pt advised he would like to be discharged in order to return to [place].Patient Disposition: DischargedPatient Discharged: YesDischarge Instructions: See ExitCareDischarge Follow up, specify:: Pt to follow up w/ providers in his area of [place].Admit/Transfer: No [facility] ED Provider Noteson 10-05-19 18 Protein mass conc Encounter Department : [facility] EM[facility]ED Provider Notes by Ana María [...] then was moved from room [facility] to [facility] for further sick crisis evaluationPatient then sober up and no further issue, medically unremarkable at this time, and patientrecanted his story, never wanted to harm himself, he was just intoxicated, and at this time patienthas a plane to catch to go back to [place]. And at this time [facility] Patient contracted for safetyThe patient was brought in for psychiatric evaluation. The patient reports no suicidal or homicidalideation, at this time have seen and evaluated the patient and will proceed with the followingworkup including alcohol level, urine drug screen, I will also obtain a crisis social workerevaluation for behavior health medicine to assess the patient further.The patient was seen and evaluated by behavior health crisis oncology social worker, DIANA Hooper, who hasextensively worked up and evaluated the patient. I have personally discussed with the social workerafter her extensive evaluation of the patient and at this time the oncology social worker has assured methat the patient is in no danger to themselves, no current suicidal or homicidal ideation. There jorgito safety plan in place. The patient has received outpatient referral and further treatment frompsychiatry and behavior health. At this time based on behavior health extensive workup andevaluation of this patient they have recommend that the patient to be discharge and has deemed thepatient safe to be discharged from the emergency department. [facility] and a medical social worker at this time I will discharge [...] return tot emergency department for a repeat examination.[facility] Celio Brennan MD10/04/17 0723An Celio Brennan MD10/04/17 1702 [facility] Protein mass conc Encounter Department : [facility] EM[facility]ED Provider Notes by Oscar Nassar MD at 10/04/2017 4:39 AMAuthor: JODY Huffmanervice: Emergency MedicineAuthor Type: ED PhysicianFiled: 10/04/2017 6:01 AMDate of Service: 10/04/2017 4:39 AMStatus: SignedEditor: Oscar Nassar MD (ED Physician)CHIEF COMPLAINTChief ComplaintPatient presents with -Overdose, IntentionalHPIHistory obtained from patientChuckjerry Hawkins is a 52 y.o. male who presents to the emergency department after reported over theis.EMS states that they received a call from [...] abnormality noted in the inferior,lateral, anterior posterior leads.CT 149, QTc 456, no prior EKG for comparison.RADIOLOGY/PROCED URESNo orders to displayI visualized the films and read the report.LABSLabs ReviewedSERUM TOX SCREEN - Abnormal; Notable for the following: ResultValueRef RangeStatusAcetaminophen Level<2 (*)10 - 30 ug/nNPtpgsQqubnva714 (*)<=3 mg/dLFinalSalicylate<1.7 (*)3.0 - 20.0 mg/dlFinalAll other components within normal limitsNarrative:Salicylate Therapeutic Range: 20-25 mg/dLAcetaminophen Therapeutic Range:10.00-30.00 ug/mLCOMPREHENSIVE METABOLIC PANEL - Abnormal; Notable for the following:Rzyijp505 (*)136 - 145 mmol/WOowwtSiztmuyi37 (*)98 - 107 mmol/KOcvqsFhnxamh542 (*)74 - 106 mg/dLFinalAG Ratio0.9 (*)1.0 - 2.7EfgizZwsrmxyb8.3 (*)2.6 - 4.2 g/dLFinalAll other components within normal limitsACETONE,KETONES - Abnormal; Notable for the following:Beta-Hydroxybutyr ate0.54 (*)0.02 - 0.27 mmol/LFinalAll other components within normal limitsGLUCOSE POC RESULTS - Abnormal; Notable for the following:POC Glqxyoa921 (*)74 - 106 mg/dLFinalAll other components within [...] note that this chart was generated using [employer] dictation software. Although every effortwas made to ensure the accuracy of this automated equipment or machinery cleaner, some errors in equipment or machinery cleaner mayhave occurred.Oscar Nassar MD10/04/17 0601 [facility] EKG STANDARD 12 LEADon 10-04 Heart rate RR Interval= 600 msP R Interval= 149 msQRSD Interval= 104 msQT Interval= 353 msQTc Interval= 456 msHeart Rate= 100 msP Marcella= 68 degQRS Marcella= 48 degT Wave Marcella= 0 degI: 40 Marcella= 27 degT: 40 Marcella= 65 degST Marcella= -29 degSinus tachycardia Electronically Signed by: Flaco Butts) 04-Oct-2017 20:30:06 Date and Time of Study: 2017-10-04 04:40:30 [facility] ETHANOLon 10-04-2017 Ethanol mass conc [facility] Comment on above: Result Comment: Resu lts of this test should always be interpreted in conjunction with the patient's medical history, clinical presentation and other findings.The pharmacological response to blood alcohol levels may vary from individual to individual. The fatal concentration has been reported to be greater than 400 mg/dL. Performed By: #### L [id number] ####[facility] [id number] [place] [address] [facility] WCS[address] [place], [place] [id number] Ethanol mass conc 133 mg/dL Abnormal <=3 [facility] Comment on above: Performed By: #### L [id number] ####[facility] [id number] [place] [address] [facility] [id number] [place], [place] [phone] Ethanol mass conc 216 mg/dL Abnormal <=3 [facility] Comment on above: Performed By: #### L AB46 ####[facility] JDO[address] [place], [place] [phone] Ethanol mass conc Normal [facility] Comment on above: Result Comment: Resu lts of this test should always be interpreted in conjunction with the patient's medical history, clinical presentation and other findings.The pharmacological response to blood alcohol levels may vary from individual to individual. The fatal concentration has been reported to be greater than 400 mg/dL. Performed By: #### L AB46 ####[facility] [id number] [place] [id number] [address] SERUM TOX SCREENon 8 Acetaminophen mass conc <2 Abnormal 10-30 [facility] Comment on above: Performed By: #### L [id number] ####[facility] [id number] [place], [place] [phone] Ethanol mass conc 353 mg/dL Abnormal <=3 [facility] Comment on above: Performed By: #### L [id number] ####[facility] [id number]UETheresa [place] [phone] SALICYLATE ([facility]/IRS) <1.7 Abnormal 3.0-20.0 [facility] Comment on above: Performed By: #### L [id number] ####[address] [address] [place] [phone] SERUM TOX SCREEN Normal [facility] Comment on above: Result Comment: Sali cylate Therapeutic Range: 20-25 mg/dLAcetaminophen Therapeutic Range:10.00-30.00 ug/mL Performed By: #### L [id number] ####[phone] UNIVERSAL DRUG SCREEN-MATERN AL/NEONATEon 10-04-2017 AMPHETAMINE METAB Negative Normal Negative [facility] Comment on above: Performed By: #### L [id number] ####[place] [phone] BARBITURATES Negative Normal Negative [facility] Comment on above: Performed By: #### L [id number] ####[address] [address] [place] [phone] Benzodiazepines Screen Ql (U) Negative Normal Negative [facility] Comment on above: Performed By: #### L [id number] ####[address] [address] [place] [phone] BUPRENORPHINE URINE Negative Normal Negative [facility] Comment on above: Performed By: #### L [id number] ####[address] [address] [place] [phone] CANNABINOID METAB Positive Abnormal Negative [facility] Comment on above: Performed By: #### L [id number] ####[facility] [id number] [place] [id number] [place] [address] Cocaine Ql (U) Negative Normal Negative [facility] Comment on above: Performed By: #### L [id number] ####[facility] EUM[address] [place] [address] [place] [address] METHADONE, URINE QUAL Negative Normal Negative [facility] Comment on above: Performed By: #### L [id number] ####[place] [address] OPIATE METAB Negative Normal Negative [facility] Comment on above: Performed By: #### L [id number] ####[place] [id number] [place] [address] OXYCODONE URINE Negative Normal Negative [facility] Comment on above: Performed By: #### L [id number] ####[place] [address] PHENCYCLIDINE METAB Negative Normal Negative [facility] Comment on above: Performed By: #### L [id number] ####[place] [address] UNIVERSAL DRUG SCREEN-MATERNAL/NEON ATE [facility] Comment on above: Result Comment: Drug Screen [...] for medical purposes. Performed By: #### L [id number] ####[facility] NZW[address] [place] [address] [facility] IOU[address] [place], [place] [phone] Vital Signs Date Time Vital Sign Value Performing Clinician Facility 02-15-2025 22:31-0400 Diastolic Blood Pressure Non-Invasive 90 mm[Hg] DR CHRISTINA YANG DO [address] [place] [address] 02-15-2025 22:31-0400 Heart rate 90 /min DR CHRISTINA YANG DO [address] [place] [address] 02-15-2025 22:31-0400 Respiratory rate 18 /min DR CHRISTINA YANG DO [address] [place] [address] 02-15-2025 22:31-0400 Systolic Blood Pressure Non-Invasive 189 mm[Hg] DR CHRISTINA YANG DO [address] [place] [address] 02-15-2025 20:31-0400 Diastolic Blood Pressure Non-Invasive 93 mm[Hg] DR CHRISTINA YANG DO [address] 02-15-2025 20:31-0400 Heart rate 90 /min DR CHRISTINA YANG DO [address] 02-15-2025 20:31-0400 Respiratory rate 20 /min DR CHRISTINA YANG DO [address] 02-15-2025 20:31-0400 Systolic Blood Pressure Non-Invasive 188 mm[Hg] DR CHRISTINA YANG DO [address] 02-15-2025 20:22-0400 Blood Pressure Cuff Size DR CHRISTINA YANG DO [address] [place] [address] 02-15-2025 20:22-[address] CHRISTINA YANG DO [address] [place] [address] 02-15-2025 20:22-[address] CHRISTINA YANG DO [facility] 02-15-2025 20:22-0400 Body temperature 97.52 [degF] DR CHRISTINA YANG DO [facility] 02-15-2025 20:22-0400 Body weight 102.[address] CHRISTINA YANG DO [facility] 02-15-2025 20:22-0400 Diastolic Blood Pressure Non-Invasive 95 mm[Hg] DR CHRISTINA YANG DO [facility] 02-15-2025 20:22-0400 Heart rate 90 /min DR CHRISTINA YANG DO [facility] 02-15-2025 20:22-0400 Respiratory rate 20 /min DR CHRISTINA YANG DO [facility] 02-15-2025 20:22-0400 Systolic Blood Pressure Non-Invasive 185 mm[Hg] DR CHRISTINA YANG DO [facility] 02-15-2025 19:35-0400 Diastolic Blood Pressure Non-Invasive 96 mm[Hg] AQUILINO REICHFIELD DO [facility] 02-15-2025 19:35-0400 Heart rate 94 /min AQUILINO REICHFIELD DO [facility] 02-15-2025 19:35-0400 Reason For Taking VItal Signs AQUILINO REICHFIELD DO [facility] 02-15-2025 19:35-0400 Respiratory rate 18 /min AQUILINO REICHFIELD DO [facility] 02-15-2025 19:35-0400 Systolic Blood Pressure Non-Invasive 179 mm[Hg] AQUILINO REICHFIELD DO [facility] 02-15-2025 19:09-0400 Heart rate 90 /min AQUILINO REICHFIELD DO [facility] 02-15-2025 19:09-0400 Respiratory rate 18 /min AQUILINO REICHFIELD DO [facility] 02-15-2025 17:43-0400 Body temperature 97.7 [degF] AQUILINO REICHFIELD DO [facility] 02-15-2025 17:43-0400 Diastolic Blood Pressure Non-Invasive 95 mm[Hg] AQUILINO REICHFIELD DO [facility] 02-15-2025 17:43-0400 Heart rate 92 /min AQUILINO REICHFIELD DO [facility] 02-15-2025 17:43-0400 Respiratory rate 18 /min AQUILINO REICHFIELD DO [facility] 02-15-2025 17:43-0400 Systolic Blood Pressure Non-Invasive 179 mm[Hg] AQUILINO REICHFIELD DO [facility] 11-12-2024 13:32-0400 Body height 177.8 cm Bobby Tracey DO Work Phone: [facility] 11-12-2024 13:32-0400 Body mass index (BMI) [Ratio] 30.55 kg/m2 Bobby Justice DO Work Phone: [facility] 11-12-2024 13:32-0400 Body weight 96.57 kg Bobby Tracey DO Work Phone: [facility] 11-12-2024 13:32-0400 Diastolic blood pressure 76 mm[Hg] Bobby Tracey DO Work Phone: [facility] 11-12-2024 13:32-0400 Heart rate 68 /min Bobby Justice DO Work Phone: [facility] 11-12-2024 13:32-0400 Systolic blood pressure 142 mm[Hg] Bobby Tracey DO Work Phone: [facility] 08-19-2024 09:40-0400 Diastolic blood pressure 94 mm[Hg] Brent Wakefield MD Work Phone: [facility] 08-19-2024 09:40-0400 Heart rate 65 /min Brent Wakefield MD Work Phone: [facility] 08-19-2024 09:40-0400 Systolic blood pressure 167 mm[Hg] Brent Wakefield MD Work Phone: [facility] 07-31-2024 09:29-0400 Body height 177.8 cm Bobby Tracey DO Work Phone: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 virus vacc ine, unspecified formulation Raeann Mccray MD Work Phone: [facility] Payers Date Payer Category Payer Self-pay 2024 Medicare (Managed Care) [id number]. [id number] 2024 Medicare [id number] 2022 Medicaid [id number] 2021 Medicaid [id number] 2021 Private Health Insurance [id number] 1963 Unknown [id number] 2.16.8 [id number] 1963 Unknown [id number] 2.16.8 40.1.789124.3.579.2.1242 1963 Unknown [id number] 2.16.8 40.1.912863.3.579.2.627 1963 Unknown [id number] 2.16. 840.1.756440.3.579.2.627 1963 Unknown [id number] 2.16. 840.1.817069.3.579.2.627 1963 Unknown [id number] 2.16. 840.1.651408.3.579.2.627 1963 Unknown [id number] 2.16. 840.1.712285.3.579.2.627 1963 Unknown [id number] 2.16. 840.1.511384.3.579.2.627 1963 Unknown [id number] 2.16. 840.1.748908.3.579.2.627 1963 Unknown [id number] 2.16. 840.1.972566.3.579.2.627 1963 Unknown [id number] 2.16. 840.1.205980.3.579.2.627 1963 Unknown [id number] 2.16. 840.1.007645.3.579.2.1243 1963 Unknown [id number] 2.16. 840.1.035657.3.579.2.1243 1963 Unknown [id number] 2.16. 840.1.844679.3.579.2.1243 1963 Unknown [id number] 2.16. 840.1.048644.3.579.2.1243 1963 Unknown [id number] 2.16. 840.1.817249.3.579.2.1243 1963 Unknown [id number] 2.16 840.1.297786.3.579.2.1243 1963 Unknown [id number] 2.16. 840.1.628454.3.579.2.1243 1963 Unknown [id number] 2.16. 840.1.632888.3.579.2.1243 1963 Unknown [id number] 2.16 840.1.287822.3.579.2.1243 1963 Unknown [id number] 2.16 840.1.591668.3.579.2.1243 1963 Unknown [id number] 2.16 [id number] Social History Date Type Detail Facility Start: 08-28-2022 End: 03-27-2024 Tobacco smoking status DCIS Never smoked tobacco [facility] Start: 08-28-2022 End: 03-14-2023 Tobacco use and exposure Smokeless tobacco non-user [facility] Start: 08-28-2022 Alcohol intake Lifetime non-d rafat (finding) [facility] Start: 1965 Sex Assigned At Not on file [facility] Work Phone: Start: 03-14-2023 End: 11-12-2024 Gender identity Not on file [facility] Work Phone: Start: 02-24-2023 End: 09-30-2024 Exposure to SARS-CoV-2 (event) Not sure [facility] Start: 03-14-2023 Tobacco smoking stat us NHIS Ex-smoker [facility] Work Phone: End: 04-23-2021 History of tobacco use Current smoker [facility] Work Phone: End: 04-23-2021 History of tobacco use Cigarette Smoker [facility] Work Phone: Start: 03-14-2023 End: 06-19-2023 Alcohol intake Ex-drinker (finding) [facility] Start: 03-14-2023 End: 11-12-2024 History of Social function [facility] Start: 11-03-2022 National Score (1-10 0), lower number is lower risk 56 [facility] Start: 03-14-2023 Alcohol Comment History of abuse [facility] Start: 03-27-2024 Tobacco use and exposure Former smokeless tobacco user [facility] Work Phone: Sexual Orientation [facility] Sex Assigned At Male [facility] Start: 11-03-2022 Sex Male (finding) [facility] Start: 02-15-2025 End: 02-15-2025 Not applicable (qualifier value) [facility] Functional Status Date Assessment Result Facility 02-25-2025 Functional status [facility] 02-25-2025 [facility] Work Phone: 02-15-2025 Functional Status Minimum assistance [facility] 02-15-2025 [facility] 02-15-2025 Functional Status ID band on, Call device within reach, Bed in low position, Wheels locked, Bedside Cart Locked, Safety level maintained [facility] 02-15-2025 [facility] 02-15-2025 Functional Status [facility] mike [facility] Mental Status Date Assessment Result Facility 02-15-2025 Mental Status Orientation Oriented x 4 [facility] 02-15-2025 Mental Status Oriented x 4 [facility] 02-15-2025 Mental Status [facility] Clinical Notes 03-06-2023 to 02-25-2025 Chrissy Khan MD - 02/25/2025 11:45 AM EST Note Date & Type Note Facility 02-25-2025 History of Present illness Narrative Subjective Ciro Randolph is a 59 y.o. male who presents [...] 3 months for FSE with patient's usual biology faculty member Dr Brock Discussed if there are any changes or development of concerning symptoms (lesion/skin condition is changing, bleeding, enlarging, or worsening) the patient is to contact my office. The patient verbalizes understanding. Chrissy Khan MD 02/25/2025 documented in this encounter [facility] Work Phone: 02-15-2025 Hospital Discharge instructions [...] If your esophagus was blocked by an npwu-hqw-ubrujvj pill (such as a vitamin), avoid this [...] your stool (dark red or black color) 1737-3336 [employer]. [address] [place] [address], [place] [address]. All rights reserved. This information is not intended as a substitute for professional medical care. Always follow your healthcare professional's instructions. Follow Up Care 02/15/2025 20:16:01 With:ALENA POP MD Address: [facility] Mahsa Banuelos [facility] [place] [address]- [phone] When:2-4 days [facility] 02-15-2025 Emergency department Discharge summary Discharge Instructions Thank you for allowing [facility] to assist you with your healthcare needs. The following is important discharge information regarding your hospital visit. Diagnosis from Today's Visit Esophageal foreign body What to Do Next Instructions from Your Care Team No qualifying data available. Post Acute Orders No qualifying data available. You Need to Schedule the Following Appointments Follow Up with ALENA POP MD When:Within 2-4 days Where:[facility] [place] [address]- [phone] Allergies NKA Medications Please ask your primary [...] If your esophagus was blocked by an cyms-mnw-ctgspcm pill (such as a vitamin), avoid this [...] your stool (dark red or black color) 1301-2575 [employer]. [address] [place] [address]. All rights reserved. This information is not intended as a substitute for professional medical care. Always follow your healthcare professional's instructions. Additional Information VACCINATE! IT SAVES LIVES! Members of the community who have not yet received the COVID-19 vaccine and would like to receive it can visit one of [facility] vaccine clinics. There are many vaccine clinic locations within the [facility]. For locations and available times, please visit [email or web address] gov/. It is important to note that some COVID mobile vaccine clinics are held outdoors and may be canceled in rainy or stormy conditions. To learn more about pediatric vaccinations (ages 5-11), we invite you to visit the [facility] webpage. https://www.[email or web address]/p [email or web address]-Gecqh-Xciwwrebklp-Freq ctvruh-Rbzyy-Awhurgpny.html To learn more about the COVID-19 vaccine, we invite you to visit the CDC website for a list of frequently asked questions. https://www.cdc.gov/coronavirus/ 2019-ncov/vaccines/faq.html [facility] Patient Portal Access Instructions: Stay connected with your healthcare team and access your personal medical information anytime with the [facility] [employer] Patient Portal. If you would like a full copy of your medical records please contact the [facility] Medical Records Department Sunday through Sunday between 8a.m. and 4:30p.m. Please follow the directions below to access the portal: 1.Access the email account you provided upon registration to the hospital.2.Look for an invitation email from [facility].3.Open the email and access the invitation link: Accept Invitation to [facility]4.Fill in the required lopez to create your account. To access your account, visit [email or web address] or scan the QR code above. Click the blue button labeled Access Patient Portal and then log in with the username [...] you will allow to register on the [facility] Patient Portal for access to your information. You can also access the [employer] Patient Portal on the [employer] carol. Simply click on Health Records under Health Data and then click on the [place] logo. HOW TO SAFELY DISPOSE OF PRESCRIPTION [...] Call your local pharmacy or go to http://new test company.B[employer]ive [employer]/8D4Xj9r to find one close to you.3.Make use of household items: Use cat litter or old coffee grounds to dispose medications if other options are not available. Mix your drugs with these household products, seal them in an airtight container and throw it into the garbage. Call [facility]: [phone] to be sure your drugs can be [...] aware that I should contact my doctor. Patient/Supervisor Tubing Signature: Date/Time: Relationship to Patient: Witness Name/Signature: Date/Time: [facility] 02-15-2025 Hospital Discharge instructions Follow Up Care 02/15/2025 17:36:45 With:Go to emergency room if symptoms worsen Address:Unknown When:2-4 days With:JOSE LARSON DO, Internal Medicine, [facility] / Address: [address] [place] [address] Medical Specialties, [place] [address]- When:2-4 days [facility] 02-15-2025 Note Exam Date Time Procedure Performing Provider Status 02/15/25 6:57 PM XR Chest 1 View AVNI STEVENSON MD; Auth (Verified) [id number] ORIGINAL EXAMINATION: ONE XRAY VIEW OF THE [...] 02/15/2025 7:56:38 PM Ordering Provider: AQUILINO CASEY [facility]10-17-2025 NoteHNO ID: [id number] Author: KEVAN MERCHANT MD Service: ? Author Type: Physician Type: Progress Notes Filed: 02/06/2025 13:38 Note Text: [facility] NEW PATIENT [...] chloride 0.65 % nasal spray Use 1 [place] in the nose every 6 hours as [...] 2-10 Units subcutaneously three (more content not included)...[facility]07-23-2025 History of Present illness Narrative* Bobby Lizarraga Justice, DO - 11/12/2024 1:30 PM EDT Subjective He is feeling well Has no swelling No problem with meds. No complaints. Has lost 35 lbs. Patient ID: Ciro Randolph is a 59 y.o. male who presents [...] are reviewed currently on a statin clonidine Pacoelbamarvel George is listed Lasix insulin vitamin D Blood [...] DO 11/12/24 1:50 PM documented in this [facility] Work Phone: 1(639) 200-371907-21-2025 Evaluation + Plan note Future Scheduled Tests Laboratory* Basic Metabolic Panel 11/10/24 * Basic Metabolic Panel 03/06/25 * Aspartate Aminotransferase 11/10/24 * Aspartate Aminotransferase 03/06/25 * A1C Hemoglobin 11/10/24 * A1C Hemoglobin 03/06/25 * ALT / SGPT 11/10/24 * ALT / SGPT 03/06/25 * Lipid Profile 11/10/24 * Lipid Profile 03/06/25 [facility] 06-10-2025 History of Present illness Narrative* Brent [...] concerns. The patient will return as needed. Latasha Glez RN, am scribing for, and in the presence of Brent Wakefield MD IBrent MD, personally performed the services described in the documentation as scribed by Latasha Lambert RN in my presence, and confirm it is both accurate and complete. documented in this [facility] Work Phone: 1([phone]) 950-137806-03-2025 History of Present illness Narrative* Brent Wakefield MD - 09/23/2024 10:00 AM EDT Images from the original note were not included. Office Visit Note Date: 09/23/2024 Surgeon: Brent Wakefield MD Office Location: [address] [facility] [address] Dept: [phone] Dept Referring Provider: Cesar Broderick MD [address] [place] [address] Dr Jojo Coffman Randolph, [facility] [address] [place] [address] Subjective Ciro Randolph is a 59 y.o. male who presents [...] reports the lesion has beenpresent for a long time. It is asymptomatic, but he is wondering [...] 09/23/2024 Surgeon: Brent Wakefield MD Office Location: [address] [address] Dept: [phone] Dept Referring Provider: Cesar Broderick MD [address] [place] [address] [address] [address] Assessment/Plan Mohs surgery - left lateral distal [...] to scar Mohs surgery Consent obtained: written [place] Protocol: Procedure explained and questions answered to [...] WITH epi Procedure Details: Case ID Number: [id number] Biopsy accession number: [id number] Date of biopsy: 05/21/2024 Pre-Op diagnosis: squamous [...] and will follow up with their primary biology faculty member as scheduled. Melchor Glez LPN am scribing for, and in the presence of Brent Wakefield MD I, Brent Wakefield MD, personally performed the services described in the documentation as scribed by Melchor Ortega LPN in my presence, and confirm it is both accurate and complete. [facility] Phone: 1(616) 668-117305-01-2025 History of Present illness Narrative* Brent Wakefield MD - 08/21/2024 2:00 PM EDT Images from the original note were not included. Excision Operative Note Date of Surgery: 08/21/2024 Surgeon: Brent Wakefield MD Office Location: [address] [address] Dept: [phone] Dept Referring Provider: Cesar Broderick MD [address] [place] [address] [place] [address] Subjective Ciro Randolph is a 59 y.o. male who presents [...] at : 2:56 PM 08/21/24 by: JEMIMA CARMEN RASNICK, RN Verified patient name, birthdate, site, specimen bottle label & requisition. The planned procedure(s) was again reviewed with the patient. The risks of bleeding, infection, nerve damage and scarring were reviewed. The patient identity, surgical site, and planned procedure(s) were verified. Biopsy Accession Number: [id number] BASAL CELL CARCINOMA (BCC) OF SKIN OF [...] - Dermatopathology- DERM LAB Differential Diagnosis: BCC ([id number]) Check Margins Yes/No?: Yes Comments: 4 mm [...] and will follow up with their primary biology faculty member as scheduled. documented in this [facility] Work Phone: 1(384) 186-269504-29-2025 History of Present illness Narrative* Brent Wakefield MD - 08/19/2024 9:30 AM EDT Office Visit Note Date: 08/19/2024 Surgeon: Brent Wakefield MD Office Location: [address] [address] Dept: [phone] Dept Referring Provider: MD Jamshid Villalobos [facility], [place] [address] Subjective Ciro Randolph is a 59 y.o. male who presents [...] 08/19/2024 Surgeon: Brent Wakefield MD Office Location: [address] [address] Dept: [phone] Dept Referring Provider: Cesar Broderick MD [address] [place] [address] Dr Uribe [place] [phone] Assessment/Plan Pre-procedure: Obtained informed consent: written from [...] - Posterior Mohs surgery Consent obtained: written [place] Protocol: Procedure explained and questions answered to [...] WITH epi Procedure Details: Case ID Number: [id number] Biopsy accession number: [id number] Date of biopsy: 08/31/2023 Pre-Op diagnosis: squamous [...] and will follow up with their primary biology faculty member as scheduled. documented in this [facility] Work Phone: 1(617) 850-700904-10-2025 History of Present illness Narrative* Bobby Lizarraga Justice, DO - 07/31/2024 9:30 AM EDT Subjective He is feeling well No major complaints. He is in assisted living. Patient ID: Ciro Randolph is a 59 y.o. male who presents [...] DO 07/31/24 10:19 AM documented in this [facility] Work Phone: [phone]) 119-876803-31-2025 NoteHNO ID: [id number] Author: MURIEL BALDERAS LSW Service: Care Management Author Type: Freight Tallier Type: Care Mgt Progress Note Filed: 07/21/2024 17:01 Note Text: CARE MANAGEMENT DISCHARGE NOTE SERVICE DATE: July 21, 2024 SERVICE TIME: 1700 Admission Date: 2024 LOS: 3 days Discharge Arrangement Discharge Arrangement: [facility] Facility Was an expedited discharge program used?: No Services Arranged- [place] Provider Name: Roderick CHICAS Caregiver Assessment Caregiver is ready, willing and able to meet the patient's needs as recommended by the inter-professional team: Yes Name of Caregiver: Roderick CHICAS Transportation Arrangements Transportation Arrangements: Uber/Lyft/Mariah (paid by [facility]) Handoff Communication: Handoff to: Carbon Capture Power Plant Engineer [employer] Plant Engineer Name/Phone: 2M P[facility] Dasia Arredondo [phone] Additional Information: Pt discharged to [facility] via uber service this date . Pt in agreement with discharged this date and in agreement with d/c date and plan no additional needs noted N2N provided to 2M Staff no f/u indicated Case closed SIGNATURE: DIANA Gary PATIENT NAME: Ciro Hawkins DATE: July 21, 2024 TIME: 4:58 [facility] NoteHNO ID: [id number] Author: DIEUDONNE WRIGHT RN Service: Nursing Author Type: Registered Nurse Type: Nursing Progress Note Filed: 07/21/2024 16:04 Note Text: Patient declined to have MRI. Patient also declined to have labs drawn today. [facility]03-31-2025 NoteHNO ID: [id number] Author: MURIEL BALDERAS LSW Service: Care Management Author Type: Freight Tallier Type: Care Mgt Initial Assessment Filed: 07/21/2024 13:24 Note Text: CARE MANAGEMENT: ASSESSMENT AND DISCHARGE PLAN SERVICE DATE: July 21, 2024 SERVICE TIME: 1305 PCP: Ciro Schultz MD Primary Contact: Extended Emergency Contact Information Primary Emergency Contact: Cheryl Argueta [facility] Relation: Friend Admission Status: Inpatient Insurance Provider: UHC MEDICARE ADVANTAGE PPO Discharge Planning requested by: Department Practice Potential Transition Plans Other: See Comment Advance Directives Current Advance Directive: None Staff Development Manager Attempted to Assist with AD Completion: Yes Action: Education Provided Current Living Arrangements and Support Lives with: Type of Residence: Assisted Living Facility Does the patient have to climb stairs at home?: No Care Facility Name: [facility] Support: Other: See Comment, Friends/neighbors AL STAFF How do you manage to accomplish the following: Independent: Ambulation, Going to the bathroom Needs Assistance: Bathe/Shower, Dress Dependent: Meals/Meal Prep, Medication Management, Transportation to appointments/community Current Services/Equipment Current Post-Acute Service(s): None Discharge Planning Patient Goal(s): Be able to go home, General wellness, Increase strength [place] of Choice Explained: [place] of Choice Given: Yes Are you interested in bedside delivery of your medications? No Discharge Planning Participant(s): Patient Patient/Family Comments: Caregiver Assessment: Caregiver is ready, willing and able to meet the patient's needs as recommended by the inter-professional team: Yes Name of Caregiver: Roderick lozada RI Transport at Discharge: Transportation Arrangements: Uber/Lyft/Mariah (paid by [facility]) Needs Prior to Discharge: Needs Prior to [...] were you homeless or living in a usp (including now)?: No Utilities In the past 12 months has the [employer], [employer], oil, or water [employer] threatened to shut off services in your home?: No Social Information Financial Resources: Unemployed Post-Acute Discharge Plan: Consult of pt admitted from the AL setting due to Cellulitis of left upper arm . Chart reviewed and met with pt this date Per pt prior to admission he resided at [facility] and his d/c plan is to return there.He confirms they manage his medications and provide all of his meals. Per pt he does not use an assistance device and his PCP is Dr Larson . Pt confirms that his mother is no longer his contact, he does not wish to do Advance Directives and states his friend Cheryl Argueta ([phone]) is his wigs salesperson and Epic updated per pt request . Referral sent to [facility] in [facility] and pt will require transport upon d/c and confirmed with nursing pt is stable to transport by uber . Will proceed accordingly SIGNATURE: DIANA Gary PATIENT NAME: Ciro Hawkins DATE: July 21, 2024 TIME: 1:08 [facility] NoteHNO ID: [id number] Author: JORDYN URRUTIA MD Service: General Internal [...] ORAL PRN sodium chloride 0.65 % 1 [place] 1 [place] EACH NOSTRIL q 6 H PRN cholecalciferol [...] (Src) 99 (Oral) Resp 19 Ht 5' 8.898 (1.75m) Wt 230 lb (104.3kg) SpO2 97% [...] UKET Negative COAG: No results for input(s): APTT, INR in the last 168 hours. CARDIAC: No results for input(s): CKMB, CKMBP, TROPT, PBNP in the last 168 hours. DATA: Diagnostic tests reviewed for today's visit: Most recent labs and imaging results. Most recent EKG Urine Culture: Positive Micro-30 Days Procedure Component Value Units Date/Time Blood Culture [[id number]] (Abnormal) Collected: 07/18/241619 Order Status: Completed Specimen: Blood Updated: 07/19/24 1218 Gram Stain Gram positive cocci in clusters Blood Culture Identification Panel [[id number]] (Abnormal) Collected: 07/18/241619 Order Status: Completed Specimen: Blood Updated: 07/19/24 1416 Interpretation Methicillin-resistant Staphylococcus epidermidis (MRSE) detected by PCR. Single positive cultures of S. epidermidis usually represent contamination. Call lab within 72 hours if further work up is required. Blood Culture: (more content not included)...[facility]03-29-2025 Note HNO ID: [id number] Author: JORDYN URRUTIA MD Service: General Internal [...] ORAL PRN sodium chloride 0.65 % 1 [place] 1 [place] EACH NOSTRIL q 6 H PRN cholecalciferol [...] (Src) 98.1 (Oral) Resp 16 Ht 5' 8.898 (1.75m) Wt 230 lb (104.3kg) SpO2 96% [...] UKET Negative COAG: No results for input(s): APTT, INR in the last 168 hours. CARDIAC: No results for input(s): CKMB, CKMBP, TROPT, PBNP in the last 168 hours. DATA: Diagnostic tests reviewed for today's visit: Most recent labs and imaging results. Most recent EKG Urine Culture: Positive Micro-30 Days Procedure Component Value Units Date/Time Blood Culture [[id number]] (Abnormal) Collected: 07/18/241619 Order Status: Completed Specimen: Blood Updated: 07/19/24 1218 Gram Stain Gram positive cocci in clusters Blood Culture Identification Panel [[id number]] (Abnormal) Collected: 07/18/241619 Order Status: Completed Specimen: Blood Updated: 07/19/24 1416 Interpretation Methicillin-resistant Staphylococcus epidermidis (MRSE) detected by PCR. Single positive cultures of S. epidermidis usually represent contamination. Call lab within 72 hours if further work up is required. Blood Culture: Positive Micro-30 Days Procedure Component Value Uni (more content not included)...[facility] 07-19-2024 NoteHNO ID: [id number] Author: LIZZY TRIPLETT RT(R) Service: Radiology Author Type: Technologist Type: Progress Notes Filed: 07/19/2024 07:18 Note Text: Summary: MRI RADIOLOGY SERVICE PROGRESS NOTE DATE OF SERVICE: July 19, 2024 TIME OF SERVICE: 07:17 EVENT: 2nd Request for MRI Screening Sheet. ADDITIONAL EVENT DETAILS: N/A SIGNATURE: Lizzy Triplett RT(R)(MR) PATIENT NAME: Ciro Hawkins DATE: July 19, 2024 TIME: 7:17 AM PAGER/CONTACT #:[facility]03-28-2025 NoteHNO ID: [id number] Author: MARII NGUYEN RN Service: Nursing Author Type: Registered Nurse Type: Nursing Progress Note Filed: 2024 22:40 Note Text: Pt bp elevated [facility]03-28-2025 NoteHNO ID: [id number] Author: MARII NGUYEN RN Service: Nursing Author Type: Registered Nurse Type: Nursing Progress Note Filed: 2024 20:16 Note Text: Prn bp [facility]03-28-2025 NoteHNO ID: [id number] Author: SAMIRA WEAVER RT(R) Service: ? Author Type: Technologist Type: Progress Notes Filed: 2024 19:25 Note Text: Summary: MRI RADIOLOGY SERVICE PROGRESS NOTE DATE OF SERVICE: 2024 TIME OF SERVICE: 1923 EVENT: EXAM/PROCEDURE NOT COMPLETED - NEED COMPLETED MRI SAFETY SCREENING FORM ADDITIONAL EVENT DETAILS: N/A SIGNATURE: RT Raya(R) PATIENT NAME: Ciro Hawkins DATE: 2024 TIME: 7:24 PM PAGER/CONTACT #:[facility]03-28-2025 NoteHNO ID: [id number] Author: POLY CASTRO RPh Service: Pharmacy Author Type: Pharmacist Type: Plan of Care Filed: 2024 16:46 Note Text: PHARMACY MEDICATION REVIEW Patient Name: Ciro Hawkins : 1965 The below information represents the best possible medication history: Yes Medication history completed by: ED Pharmacist Poly Castro RPh Source of history: long-term/Other [facility] medication list Medication nonadherence identified: Unable to assess Preferred outpatient pharmacy: [facility] Allergies: No Known Allergies [...] nasal spray Yes Yes Sig: Use 1 [place] in the nose every 6 hours as needed for cold/allergy symptoms. traMADol (ULTRAM) 50 mg tablet Yes Yes Sig: Take 50 mg by mouth every 8 hours as needed for pain. Facility-Administered Medications: None Poly Castro RPh 2024[facility]03-28-2025 [id number] (AGENT OF COVID-19) RNA: Not detected INFLUENZA A RNA: Not detected INFLUENZA B RNA: Not detected RESPIRATORY SYNCYTIAL VIRUS (RSV) RNA: Not detectedPacific Christian HospitalComment on above:Performed By: #### [id number] ####[facility] LABORATORYCLIA [id number] [address] OF [id number] History of Present illness Narrative* Brent Wakefield MD - 07/11/2024 9:30 AM EDT Office Visit Note Date: 07/11/2024 Surgeon: Brent Wakefield MD Office Location: [address] [facility] [address] Dept: [phone] Dept Referring Provider: Cesar Broderick MD [address] [place] [address] Dr [facility] [address] [place] [address] Subjective Ciro Hawkins is a 58 y.o. [...] 07/11/2024 Surgeon: Brent Wakefield MD Office Location: [address] [address] Dept: [phone] Dept Referring Provider: Cesar Broderick MD [address] [place] [address] Dr Jojo Coffman [address] [address] Assessment/Plan Pre-procedure: Obtained informed consent: written from [...] - Posterior Mohs surgery Consent obtained: written [place] Protocol: Procedure explained and questions answered to [...] WITH epi Procedure Details: Case ID Number: [id number] Biopsy accession number: [id number] Date of biopsy: 03/06/2023 Pre-Op diagnosis: squamous [...] and will follow up with their primary biology faculty member as scheduled. 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 I agree with the resident/fellow's medical decision making as documented in the note. Cesar Broderick MD documented in this [facility] Work Phone: 1(123) 732-359601-08-2025 History of Present illness Narrative* Bobby Tracey, [...] GFR is 37 LFTs are pretty unremarkable cveachrcthX5a is 8.1 I do not have a [...] DO 04/30/24 11:10 AM documented in this [facility] Work Phone: 1(166) 774-954512-05-2024 History of Present illness Narrative* Bobby Tracey [...] DO 03/27/24 11:53 AM [facility] Phone: 1(780) 253-355807-25-2024 History of Present illness Narrative* Poly Tim MD - 11/15/2023 1:00 PM EDT Left without being seen [facility] Work Phone: 1(404) 832-574106-25-2024 History of Present illness Narrative* Aristeo Brock MD - 10/16/2023 10:30 AM EDT Subjective Kuldip Hawkins is a 58 y.o. male who presents for the following: Suspicious Skin Lesion (Poss cyst on Chest. ILK at at last appt. Pt accompanied by Industrial Electrician. ). Review of Systems: No other skin [...] left without being seen documented in this [facility] Work Phone: 1(710) 290-307306-12-2024 NoteHNO ID: [id number] Author: JOSIANE MCCLELLAN PA-C Service: Hospital Medicine Author Type: Physician Goods Layer Type: Progress Notes Filed: 10/03/2023 21:27 Note Text: Chart reviewed and admission orders placed, prior to being able to see pt he left AMA from the ED.[facility]06-11-2024 History of Present illness Narrative* Aristeo Brock [...] more Aristeo Brock MD [facility] Phone: 1(250) 627-755805-10-2024 History of Present illness Narrative* Aristeo Brock [...] locations on the labels documented in this [facility] Work Phone: 1(910) 413-845102-27-2024 History of Present illness Narrative* Cynthia Diaz RT(R) - 06/19/2023 10:47 AM EST RADIOLOGY [...] PATIENT PRESENTS WITH AN IMPLANTABLE OR ATTACHED HOT IRON WORKER: No CREATININE: Creatinine Date Value Ref Range [...] applicable PROCEDURE TYPE: NM Stress: 13.4 mCi [id number] was administered IV for Rest Imaging at 837 by Cynthia SEPULVEDA-N. 33.5 mCi [id number] was administered IV for Stress Imaging at 948 by Cynthia SEPULVEDA-N. ADMINISTRATION TIME: PATIENT DISCHARGED TO: Ambulatory patient, left [place] department area. A Diagnostic radioactive procedure has taken place, with no further precautions necessary other than routine body substance precautions. More information regarding radiation safety can be found usingthis link: [email or web address] SIGNATURE: DOMINGO Wade) PATIENT NAME: Ciro Hawkins DATE: June 19, 2023 TIME: 10:47 AM PAGER/CONTACT #: [facility] Nurse Note* Miracle Mohan RN - 06/19/2023 [...] test. No distress noted. documented in this encounterSum[facility]11-22-2023 History of Present illness Narrative* Raeann Mccray [...] Medications were reviewed. Father in his 40s fromblood cancer. Mother at age 73 cause unknown. He [...] 67 Resp 22 Ht 180.3 cm (5' 11) Wt 107.5 kg (237 lb) SpO2 100% [...] 1.00 - 4.00 k/uL 1.82 2.33 1.80 [place]% % 4.0 11.1 8.9 Abs [place] <0.87 k/uL 0.81 2.05 (H) 1.06 (H) [...] composed using voice recognition and may contain equipment or machinery cleaner errors. The documentation for this note was completed by Stephen Pritchett RN acting as a scribe for Raeann Zee.Helio #2 documented in this encounterSum[facility] Health11-14-2023 History of Present illness Narrative* Aristeo Brock [...] Routine Histopathology (formalin-fixed tissue) [facility] Work Phone: Evaluation note* Diagnosis Right wrist pain Pain in joint, forearm [facility]* Diagnosis Nummular dermatitis- Primary Contact dermatitis and other eczema, due to unspecified cause Dermatitis Contact dermatitis and other eczema, due to unspecified cause documented in this encounter [facility] Work Phone: Evaluation note* Diagnosis Dependent edema- Primary Edema Cerebrovascular accident (CVA), unspecified mechanism (HCC) Anemia in chronic kidney disease, unspecified CKD stage Primary hypertension Unspecified essential hypertension Dyslipidemia Other and unspecified hyperlipidemia [facility] this [facility]* Diagnosis Encounter for screening for cardiovascular disorders- Primary Screening for other and unspecified cardiovascular conditions documented [facility] this [facility]* Diagnosis Encounter for screening for cardiovascular disorders Screening for other and unspecified cardiovascular conditions [facility]* Diagnosis Neoplasm of uncertain behavior of skin- Primary Squamous cell carcinoma in situ (SCCIS) documented in this encounter [facility] Work Phone: Evaluation note* Diagnosis Basal cell carcinoma (BCC) of skin of left upper extremity including shoulder- Primary Squamous cell carcinoma in situ Carcinoma in situ, site unspecified History of nonmelanoma skin cancer Inflamed epidermoid cyst of skin documented in this encounter [facility] Work Phone: Evaluation note* Diagnosis Weakness- Primary Other malaise and fatigue Type 2 diabetes mellitus without complication, with long-term current use of insulin (Multi) Mood disorder ([facility]) Unspecified episodic mood disorder Other secondary hypertension Mixed hyperlipidemia Vitamin D deficiency- Primary Mood disorder ([facility]) Unspecified episodic mood disorder Skin cancer of [...] mellitus with ketoacidosis without coma, 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 [facility] insulin use Skin lesions Mood disorder (CMS-HCC) [...] Weakness Other malaise and fatigue Mood disorder ([facility]) Unspecified episodic mood disorder Weakness- Primary Other malaise and fatigue Vitamin D deficiency Type 2 diabetes mellitus without complication, with long-term current use of insulin (Multi) Skin cancer of arm, unspecified laterality Mood disorder ([facility]) Unspecified episodic mood disorder Mixed hyperlipidemia Other [...] hypertension Other secondary hypertension, unspecified Mood disorder ([facility]) Unspecified episodic mood disorder Skin cancer of [...] of insulin (Multi) documented in this encounter [facility] Work Phone: Evaluation note* Diagnosis Scar conditions and fibrosis of skin- Primary Scar condition and fibrosis of skin documented in this encounter [facility] Work Phone: Evaluation note* Diagnosis Weakness- [...] mellitus with ketoacidosis without coma, 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 [facility] insulin use (Multi) Skin lesions Mood disorder [...] Weakness Other malaise and fatigue Mood disorder (CMS-HCC) Unspecified episodic mood disorder Weakness- Primary Other malaise and fatigue Vitamin D deficiency Type 2 diabetes mellitus without complication, with long-term current use of insulin (Multi) Skin cancer of arm, unspecified laterality Mood disorder (CMS-HCC) Unspecified episodic mood disorder Mixed hyperlipidemia Other [...] of insulin (Multi) documented in this encounter [facility] Work Phone: Evaluation note* Diagnosis Weakness- [...] secondary hypertension, unspecified Other hyperlipidemia Mood disorder ([facility]) Unspecified episodic mood disorder Skin lesions Weakness- Primary Other malaise and fatigue Vitamin D deficiency Type 2 diabetes mellitus with ketoacidosis without coma, 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 billiard table assembler insulin use Skin lesions Mood disorder ([facility]) Unspecified episodic mood disorder Secondary hypertension Other secondary hypertension, unspecified Other hyperlipidemia Vitamin D deficiency- Primary Type 2 diabetes mellitus without complication, with long-term current use of insulin (Multi) Skin lesions Other secondary hypertension Mood disorder ([facility]) Unspecified episodic mood disorder Mixed hyperlipidemia Skin lesions- Primary Type 2 diabetes mellitus without complication, with long-term current use of insulin (Multi) Other secondary hypertension Mood disorder ([facility]) Unspecified episodic mood disorder Type 2 diabetes mellitus without complication, with long-term current use of insulin (Multi)- Primary Vitamin D deficiency Skin lesions Mood disorder ([facility]) Unspecified episodic mood disorder Other secondary hypertension Mixed hyperlipidemia Other secondary hypertension- Primary Mixed hyperlipidemia Skin cancer of arm, unspecified laterality Type 2 diabetes mellitus without complication, with long-term current use of insulin (Multi) Vitamin D deficiency Weakness Other malaise and fatigue Mood disorder ([facility]) Unspecified episodic mood disorder Weakness- Primary Other malaise and fatigue Vitamin D deficiency Type 2 diabetes mellitus without complication, with long-term current use of insulin (Multi) Skin cancer of arm, unspecified laterality Mood disorder ([facility]) Unspecified episodic mood disorder Mixed hyperlipidemia Other [...] kidney disease (Multi) documented in this encounter [facility] Work Phone: Evaluation note* Diagnosis Weakness- [...] mellitus with ketoacidosis without coma, 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 [facility] insulin use Skin lesions Mood disorder ([facility]) Unspecified episodic mood disorder Secondary hypertension Other secondary hypertension, unspecified Other hyperlipidemia Vitamin D deficiency- Primary Type 2 diabetes mellitus without complication, with long-term current use of insulin (Multi) Skin lesions Other secondary hypertension Mood disorder ([facility]) Unspecified episodic mood disorder Mixed hyperlipidemia Skin lesions- Primary Type 2 diabetes mellitus without complication, with long-term current use of insulin (Multi) Other secondary hypertension Mood disorder ([facility]) Unspecified episodic mood disorder Type 2 diabetes mellitus without complication, with long-term current use of insulin (Multi)- Primary Vitamin D deficiency Skin lesions Mood disorder ([facility]) Unspecified episodic mood disorder Other secondary hypertension Mixed hyperlipidemia Other secondary hypertension- Primary Mixed hyperlipidemia Skin cancer of arm, unspecified laterality Type 2 diabetes mellitus without complication, with long-term current use of insulin (Multi) Vitamin D deficiency Weakness Other malaise and fatigue Mood disorder ([facility]) Unspecified episodic mood disorder Weakness- Primary Other malaise and fatigue Vitamin D deficiency Type 2 diabetes mellitus without complication, with long-term current use of insulin (Multi) Skin cancer of arm, unspecified laterality Mood disorder ([facility]) Unspecified episodic mood disorder Mixed hyperlipidemia Other [...] Unspecified essential hypertension documented in this encounter [facility] Work Phone: Evaluation note* Diagnosis Weakness- [...] mellitus with ketoacidosis without coma, 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 [facility] insulin use Skin lesions Mood disorder (CMS-HCC) Unspecified episodic mood disorder Secondary hypertension Other secondary hypertension, unspecified Other hyperlipidemia Vitamin D deficiency- Primary Type 2 diabetes mellitus without complication, with long-term current use of insulin (Multi) Skin lesions Other secondary hypertension Mood disorder ([facility]) Unspecified episodic mood disorder Mixed hyperlipidemia Skin lesions- Primary Type 2 diabetes mellitus without complication, with long-term current use of insulin (Multi) Other secondary hypertension Mood disorder ([facility]) Unspecified episodic mood disorder Type 2 diabetes mellitus without complication, with long-term current use of insulin (Multi)- Primary Vitamin D deficiency Skin lesions Mood disorder ([facility]) Unspecified episodic mood disorder Other secondary hypertension Mixed hyperlipidemia Other secondary hypertension- Primary Mixed hyperlipidemia Skin cancer of arm, unspecified laterality Type 2 diabetes mellitus without complication, with long-term current use of insulin (Multi) Vitamin D deficiency Weakness Other malaise and fatigue Mood disorder ([facility]) Unspecified episodic mood disorder Weakness- Primary Other malaise and fatigue Vitamin D deficiency Type 2 diabetes mellitus without complication, with long-term current use of insulin (Multi) Skin cancer of arm, unspecified laterality Mood disorder ([facility]) Unspecified episodic mood disorder Mixed hyperlipidemia Other [...] to solar radiation documented in this encounter [facility] Work Phone: Evaluation note* Diagnosis Weakness- [...] mellitus with ketoacidosis without coma, 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 [facility] insulin use Skin lesions Mood disorder ([facility]) Unspecified episodic mood disorder Secondary hypertension Other secondary hypertension, unspecified Other hyperlipidemia Vitamin D deficiency- Primary Type 2 diabetes mellitus without complication, with long-term current use of insulin (Multi) Skin lesions Other secondary hypertension Mood disorder ([facility]) Unspecified episodic mood disorder Mixed hyperlipidemia Skin lesions- Primary Type 2 diabetes mellitus without complication, with long-term current use of insulin (Multi) Other secondary hypertension Mood disorder ([facility]) Unspecified episodic mood disorder Type 2 diabetes mellitus without complication, with long-term current use of insulin (Multi)- Primary Vitamin D deficiency Skin lesions Mood disorder ([facility]) Unspecified episodic mood disorder Other secondary hypertension Mixed hyperlipidemia Other secondary hypertension- Primary Mixed hyperlipidemia Skin cancer of arm, unspecified laterality Type 2 diabetes mellitus without complication, with long-term current use of insulin (Multi) Vitamin D deficiency Weakness Other malaise and fatigue Mood disorder ([facility]) Unspecified episodic mood disorder Weakness- Primary Other malaise and fatigue Vitamin D deficiency Type 2 diabetes mellitus without complication, with long-term current use of insulin (Multi) Skin cancer of arm, unspecified laterality Mood disorder ([facility]) Unspecified episodic mood disorder Mixed hyperlipidemia Other [...] left upper extremity documented in this encounter [facility] Work Phone: Evaluation note* Diagnosis Weakness- [...] mellitus with ketoacidosis without coma, 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 billiard table assembler insulin use Skin lesions Mood disorder (CMS-HCC) [...] of insulin Other secondary hypertension Mood disorder ([facility]) Unspecified episodic mood disorder Type 2 diabetes mellitus without complication, with long-term current use of insulin- Primary Vitamin D deficiency Skin lesions Mood disorder ([facility]) Unspecified episodic mood disorder Other secondary hypertension Mixed hyperlipidemia Other secondary hypertension- Primary Mixed hyperlipidemia Skin cancer of arm, unspecified laterality Type 2 diabetes mellitus without complication, with long-term current use of insulin Vitamin D deficiency Weakness Other malaise and fatigue Mood disorder ([facility]) Unspecified episodic mood disorder Weakness- Primary Other malaise and fatigue Vitamin D deficiency Type 2 diabetes mellitus without complication, with long-term current use of insulin Skin cancer of arm, unspecified laterality Mood disorder ([facility]) Unspecified episodic mood disorder Mixed hyperlipidemia Other [...] 3b CKD (Multi) documented in this encounter [facility] Work Phone: Evaluation note* Diagnosis Weakness- [...] mellitus with ketoacidosis without coma, 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 billiard table assembler insulin use Skin lesions Mood disorder (CMS-HCC) [...] Weakness Other malaise and fatigue Mood disorder ([facility]) Unspecified episodic mood disorder Weakness- Primary Other malaise and fatigue Vitamin D deficiency Type 2 diabetes mellitus without complication, with long-term current use of insulin Skin cancer of arm, unspecified laterality Mood disorder ([facility]) Unspecified episodic mood disorder Mixed hyperlipidemia Other [...] hypertension Other secondary hypertension, unspecified Mood disorder ([facility]) Unspecified episodic mood disorder Skin cancer of [...] of left wrist documented in this encounter [facility] Work Phone: Evaluation note* Diagnosis Weakness- [...] mellitus with ketoacidosis without coma, 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 [facility] insulin use Skin lesions Mood disorder (CMS-HCC) [...] Weakness Other malaise and fatigue Mood disorder (CMS-HCC) Unspecified episodic mood disorder Weakness- Primary Other malaise and fatigue Vitamin D deficiency Type 2 diabetes mellitus without complication, with long-term current use of insulin Skin cancer of arm, unspecified laterality Mood disorder (CMS-HCC) Unspecified episodic mood disorder Mixed hyperlipidemia Other [...] extremity including shoulder documented in this encounter [facility] Work Phone: Evaluation note* Diagnosis Weakness- [...] mellitus with ketoacidosis without coma, 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 billiard table assembler insulin use Skin lesions Mood disorder Unspecified [...] for wound check documented in this encounter [facility] Work Phone: Evaluation note* Diagnosis Weakness- [...] mellitus with ketoacidosis without coma, 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 [facility] insulin use Skin lesions Mood disorder Unspecified [...] behavior of skin documented in this encounter [facility] Work Phone: Evaluation note* Diagnosis Weakness- [...] mellitus with ketoacidosis without coma, 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 [facility] insulin use Skin lesions Mood disorder Unspecified [...] Unspecified essential hypertension documented in this encounter [facility] Work Phone: Evaluation note* Diagnosis Weakness- [...] mellitus with ketoacidosis without coma, 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 [facility] insulin use (Multi) Skin lesions Mood disorder [...] unspecified Dermatologic problem documented in this encounter [facility] Work Phone: Hospital course Narrative No data available for this section [facility] Hospital Discharge instructions No data available for this section [facility] Progress note No data available for this section [facility] Reason for referral (narrative)* Consultation (Routine) - Authorized Specialty Diagnoses / Procedures Referred By Contac t Referred To Contact Dermatology Diagnoses Nummular dermatitis Procedures Follow Up In Dermatology - [place] [address] [facility] Department [place] [address] Referral ID Status Reason Start Date Expiration Date V isits Requested Visits Authorized [id number] Authorized 03/06/2023 03/05/2024 1 1 [facility] Work Phone: Reason for referral (narrative)* Diagnostic Procedure Only (Routine) - Pending Review Specialty Diagnoses / Procedures Referred By Contac t Referred To Contact MOLECULAR & FUNCTIONAL IMAGING Diagnoses Encounter for screening for cardiovascular disorders Procedures NM CARDIAC PERF STRESS/PHARM MYOCARDIAL SPECT MULTIPLE STUDIES Raeann Mccray MD [address] [place] [address] Molecular & Functional Imaging [address] [place] [address] Referral ID Status Reason Start Date Expiration Date Visits Requested Visits Authorized [id number] Pending Review Auto-Generat ed Referral 06/13/2023 06/28/2024 1 1 [facility] for visit Narrative* Diagnostic Procedure Only (Routine) - Authorized Specialty Diagnoses / Procedures Referred By Contac t Referred To Contact XR IMAGING Diagnoses Right wrist pain Procedures XR WRIST INJURY 4V PA/LAT/OBL/SCAPH RIGHT RADEX WRIST COMPLETE MINIMUM 3 VIEWS Suzanna Bruner, ONLINE COMMUNICATIONS MANAGER.TRAFFIC AND TRANSPORT PLANNER [address] [place] [address] Xr Imaging Referral ID Status Reason Start Date Expiration Date Visits Requested Visits Authorized [id number] Authorized Auto-Generat ed Referral 08/28/2022 09/27/2023 1 1 [facility] for visit Narrative* Imaging (Routine) - Authorized Specialty Diagnoses / Procedures Referred By Contac t Referred To Contact Radiology Diagnoses Stage 3b chronic kidney disease (Multi) Procedures US renal complete Bobby Tracey, DO [address] [place] [address] Phone: tel: fax: Referral ID Status Reason Start Date Expiration Date Visits Requested Visits Authorized [id number] Authorized Perform Procedure 03/27/2024 03/27/2025 1 1 [facility] Work Phone: Summary Purpose Family History [...] uncertain [place] [address] [address] [place] [address] Referral ID Status Reason Start Date Expiration Date Visits Requested Visits Authorized [id number] Pending Review Specialty Services Required 08/31/2023 08/30/2024 1 1 Specialty Diagnoses / Procedures Referred By Contac t Referred To Contact Diagnoses Inflamed epidermoid [place] [address] [address] Department of Dermatology [place] [id number] Referral ID Status Reason Start Date Expiration Date V isits Requested Visits Authorized [id number] Pending Review 10/03/2023 10/02/2024 1 1 Additional Source Comments (unrecognized sect ion and content) No Status Records FoundNo Status Records FoundNo Status Records FoundNo Status Records FoundNo Status Records FoundNo Status Records FoundNo Status Records FoundNo Status Records FoundNo Status Records FoundNo Status Records FoundNo Status Records Found INFORMATION SOURCE (unrecogn ized section and content) DATE CREATED AUTHOR 02/06/2018 [facility] DATE CREATED AUTHOR AUTHOR'S ORGANIZ ATION 11/07/2023 [facility] DATE CREATED AUTHOR AUTHOR'S ORGANIZ ATION 02/17/2024 [facility] DATE CREATED AUTHOR AUTHOR'S ORGANIZ ATION 04/11/2024 [facility] DATE CREATED AUTHOR AUTHOR'S ORGANIZ ATION 09/20/2024 [facility] DATE CREATED AUTHOR AUTHOR'S ORGANIZ ATION 01/25/2025 [facility] DATE CREATED AUTHOR AUTHOR'S ORGANIZ ATION 02/08/2025 [facility] DATE CREATED AUTHOR AUTHOR'S ORGANIZ ATION 02/21/2025 [facility] DATE CREATED AUTHOR AUTHOR'S ORGANIZ ATION 02/22/2025 [facility] DATE CREATED AUTHOR AUTHOR'S ORGANIZ ATION 02/27/2025 [facility] DATE CREATED AUTHOR AUTHOR'S ORGANIZ ATION 03/04/2025 [facility] Source Comments (unrecognize d section and content) In the event this informatio n is protected by the Federal Confidentiality of Alcohol and Drug Abuse Patient Records regulations: The Federal rules restrict any use of the information to criminally investigate or prosecute any alcohol or drug abuse patient.[facility] Health[facility] the event this information is protected by the Federal Confidentiality of Alcohol and Drug Abuse Patient Records regulations: The Federal rules restrict any use of the information to criminally investigate or prosecute any alcohol or drug abuse patient.[facility] HealthIn the event this information is protected by the Federal Confidentiality of Alcohol and Drug Abuse Patient Records regulations: The Federal rules restrict any use of the information to criminally investigate or prosecute any alcohol or drug abuse patient.[facility] Health[facility] the event this information is protected by the Federal Confidentiality of Alcohol and Drug Abuse Patient Records regulations: The Federal rules restrict any use of the information to criminally investigate or prosecute any alcohol or drug abuse patient.[facility] Teams (unrecognized sec tion and content) Button Bradder Relationship Specialty Start Date End Date Ciro Schultz MD [address] [address] PCP - General Internal Medicine 06/02/22 Button Bradder Relationship Specialty Start Date End Date Ciro Schultz MD [address] [facility] [address] [place] [address] PCP - General Internal Medicine 06/02/22 Button Bradder Relationship Specialty Start Date End Date Ciro Schultz MD [address] [facility] [address] [place] [address] PCP - General Internal Medicine 06/02/22 Button Bradder Relationship Specialty Start Date End Date Ciro Schultz MD [address] [facility] [address] [place] [address] PCP - General Internal Medicine 06/02/22 Button Bradder Relationship Specialty Start Date End Date Generic Provider, No Assigned MD Nyasia PCP - General Internal Medicine 04/26/23 Button Bradder Relationship Specialty Start Date End Date Generic Provider, No Assigned MD Nyasia PCP - General Internal Medicine 04/26/23 Button Bradder Relationship Specialty Start Date End Date Generic Provider, No Assigned MD Nyasia PCP - General Internal Medicine 04/26/23 Button Bradder Relationship Specialty Start Date End Date Generic Provider, No Assigned MD Nyasia PCP - General Internal Medicine 04/26/23 Button Bradder Relationship Specialty Start Date End Date Generic Provider, No Assigned MD Nyasia PCP - General Internal Medicine 04/26/23 Button Bradder Relationship Specialty Start Date End Date Generic Provider, No Assigned MD Nyasia PCP - General Internal Medicine 04/26/23 Button Bradder Relationship Specialty Start Date End Date Generic Provider, No Assigned MD [place] PCP - General Internal Medicine 04/26/23 Button Bradder Relationship Specialty Start Date End Date Generic Provider, No Assigned MD Nyasia PCP - General Internal Medicine 04/26/23 Button Bradder Relationship Specialty Start Date End Date Generic Provider, No Assigned MD [place] PCP - General Internal Medicine 04/26/23 Button Bradder Relationship Specialty Start Date End Date Generic Provider, No Assigned Pcp, PCP - General Internal Medicine 04/26/23 Button Bradder Relationship Specialty Start Date End Date Jose Larson DO [address] [address] PCP - General Internal Medicine 08/19/24 Button Bradder Relationship Specialty Start Date End Date Jose Larson DO [address] [place] [address] PCP - General Internal Medicine 08/19/24 Button Bradder Relationship Specialty Start Date End Date Jose Larson DO [address] [place] [address] PCP - General Internal Medicine 08/19/24 Button Bradder Relationship Specialty Start Date End Date Jose Larson DO [address] [place] [address] PCP - General Internal Medicine 08/19/24 Button Bradder Relationship Specialty Start Date End Date Jose Larson DO [address] [place] [address] PCP - General Internal Medicine 08/19/24 Button Bradder Relationship Specialty Start Date End Date Jose Larson DO [address] [place] [address] PCP - General Internal Medicine 08/19/24 Reason for Visit (unrecogniz ed section and content) Reason Comments Follow-up 3 monthsReview labs 11/07 Specialty Diagnoses / Procedures Referred By Jena t Referred To Contact Nephrology Diagnoses Stage 3b chronic kidney disease (Multi) Procedures Follow Up In Nephrology Bobby Tracey DO [address] [facility] [address] [place] [address] Phone: tel: fax: Referral ID Status Reason Start Date Expiration Date V isits Requested Visits Authorized [id number] Authorized 07/31/2024 07/31/2025 1 1 Reason Comments MOHS Surgery Left lateral distal arm adjacent to scar Specialty Diagnoses / Procedures Referred By Contac t Referred To Contact Dermatology Diagnoses Squamous cell carcinoma in situ (SCCIS) Basal cell carcinoma (BCC) of skin of right upper extremity including shoulder Cesar Broderick MD [address] [place] [address] Phone: tel: fax: Referral ID Status Reason Start Date Expiration Date Visits Requested Visits Authorized [id number] Authorized Specialty Services Required 05/30/2024 05/30/2025 2 2 Reason Comments MOHS Surgery Left Wrist-Posterior Specialty Diagnoses / Procedures Referred By Contac t Referred To Contact Dermatology Diagnoses Squamous cell carcinoma of skin Cesar Broderick MD [address] [place] [id number] Phone: tel: fax: Referral ID Status Reason Start Date Expiration Date Visits Requested Visits Authorized [id number] Authorized Specialty Services Required 05/21/2024 11/10/2024 3 3 Reason Comments Follow-up 3 monthsReview labs Referral ID Status Reason Start Date Expiration Date V isits Requested Visits Authorized [id number] Authorized 04/30/2024 04/30/2025 1 1 Reason Comments Rash Pt goes by Agustín. Re d spot on left wrist, left shoulder, left arm. Pt lives in assisted living facility Reason Comments Consult Reason Comments Stress Test Specialty Diagnoses / Procedures Referred By Contac t Referred To Contact MOLECULAR & FUNCTIONAL IMAGING Diagnoses Encounter for screening for cardiovascular disorders Procedures NM CARDIAC PERF STRESS/PHARM MYOCARDIAL SPECT MULTIPLE STUDIES Raeann Mccray MD [address] [facility] [address] [place] [address] Molecular & Functional Imaging [address] [place] [id number] Referral ID Status Reason Start Date Expiration Date V isits Requested Visits Authorized [id number] Closed Auto-Generat ed Referral Patient Cleared - Admin/Chairm an/Director advise to proceed or did not respond 06/18/2023 08/02/2023 1 1 Reason Comments Suspicious Skin Lesion Area to L arm Reason Comments curettage Left upper back Specialty Diagnoses / Procedures Referred By Chivoac t Referred To Contact Dermatology Diagnoses Basal cell carcinoma (BCC) of skin of left upper extremity including shoulder Procedures Prior Authorization for Skin Excision [place] [address] [address] Department [place] [address] Referral ID Status Reason Start Date Expiration Date V isits Requested Visits Authorized [id number] Authorized 09/06/2023 11/21/2023 1 1 Reason Comments Consult Chronic kidney disea se Specialty Diagnoses / Procedures Referred By Contac t Referred To Contact Nephrology Diagnoses Stage 3b chronic kidney disease (Multi) Alecia Mosre, ONLINE COMMUNICATIONS MANAGER-TRAFFIC AND TRANSPORT PLANNER [address] [facility] [place][note 2], [facility] [address] [place] [address] Phone: tel: fax: Referral ID Status Reason Start Date Expiration Date Visits Requested Visits Authorized [id number] Authorized Specialty Services Required 01/22/2024 01/21/2025 1 1 Reason Comments Suspicious Skin Lesion Poss cyst on Ches t. ILK at at last appt. Pt accompanied by Industrial Electrician. Specialty Diagnoses / Procedures Referred By Jena t Referred To Contact Dermatology Diagnoses Neoplasm of uncertain [place] [address] [address] Department of Dermatology [place] [id number] Referral ID Status Reason Start Date Expiration Date Visits Requested Visits Authorized [id number] Authorized Specialty Services Required 08/31/2023 02/14/2024 1 1 Reason Comments Follow-up 1 monthReview Labs & Renal US Referral ID Status Reason Start Date Expiration Date V isits Requested Visits Authorized [id number] Authorized 03/27/2024 03/27/2025 1 1 Reason Comments [...] BE BASED ON THE PRIMARY CLINICAL RECORDS. [employer] provides no warranty or guarantee of the accuracy or completeness of information in this document.
[2025-04-13 08:41] LABS: Anion Gap 11 (5-15); BUN 43 mg/dL (4-19); BUN/Creat Ratio 20.4 RATIO (10-20); Calcium,Total 9.0 mg/dL (7.6-11.0); Carbon Dioxide 21.0 mmol/L (21.0-32.0); Chloride 106 mmol/L (98-108); Ferritin 56 ng/mL (37-417); Glucose 98 mg/dL (70-99); PSA,Total - Annual Screen 0.73 ng/mL (0.02-4.00); Potassium 4.7 mmol/L (3.3-5.1); Vitamin B12 354 pg/mL (180-914)
[2025-04-13 08:55] LABS: Iron 45 ug/dL (65-175); Iron Binding Capacity,Unsat 190 ug/dL (228-428); Magnesium 2.5 mg/dL (1.5-2.2)
[2025-04-13 09:01] LABS: Creatinine, Urine (random) 49.00 mg/dL (39.00-259.00)
[2025-04-13 09:13] LABS: Microalbumin,Random Urine 489.0 mg/L (<20 mg/L)
[2025-04-13 09:14] LABS: Iron Binding Capacity,Total 235 ug/dL (250-450)
== END ==
LOC: OLS.SWAL 05:00
PROVIDERS: Visit Provider Family Medicine
DX: E11.9 Type 2 diabetes mellitus without complications (principal); N18.32 Chronic kidney disease, stage 3b; G25.81 Restless legs syndrome; Z00.00 Encounter for general adult medical examination without abnormal findings
CPT/HCPCS: 36415; 80048; 82043; 82570; 82607; 82728; 83540; 83550; 83735; 84153; 84681; G0103